=== PATIENT | male | born 1950 | race African-American/Black ===

== ENCOUNTER 2016-07-08 10:47 | Emergency (ER) | payer OTHER ==
--- NOTE | 2016-07-08 11:46 | ED ---
General Adult HPI - General Chief complaint: Abdominal Pain Stated complaint: BACK PAIN AND CONSTIPATION Time Seen by Provider: 07/08/16 11:10 Source: patient Mode of arrival: ambulatory Limitations: no limitations - History of Present Illness Initial comments: Patient is a 65-year-old male presenting with constipation. Patient states he normally has a bowel movement every day but hasn't had a bowel movement last 2 days. Patient states had this before about a year ago for which he came in the ER and was relieved. Patient has not tried any fiber, stool softener, laxative , enema. Patient states he was at a friend's house as to why he didn't try anything. He did try to increase his water intake. Patient denies history of opiate use. He denies fever, chills, chest pain, shortness breath, abdominal pain, nausea, vomiting, recent diarrhea. Patient denies any recent trauma, numbness, incontinence of bowel or bladder. Per chart patient has a past drug use of cocaine and opiates. - Related Data Home Medications Medication Instructions Recorded Confirmed Aspirin EC [Ecotrin Low Dose] 81 mg PO DAILY 07/08/16 07/08/16 Ergocalciferol [Vitamin D2] 50,000 unit PO TU 07/08/16 07/08/16 Insulin Glulisine [Apidra Solostar] See Protocol SQ TID-W/MEALS 07/08/16 Ranitidine HCl [Zantac] 150 mg PO HS 07/08/16 07/08/16 Previous Rx's Medication Instructions Recorded Albuterol Inhaler [Ventolin Hfa 2 puff INHALATION RT-Q6H PRN #1 05/25/16 Inhaler] puff Gabapentin 800 mg PO TID #90 tab 05/25/16 Insulin Glargine [Lantus] 15 unit SQ HS #1 vial 05/25/16 Lisinopril [Zestril] 10 mg PO DAILY #30 tab 05/25/16 Simvastatin [Zocor] 20 mg PO HS #30 tab 05/25/16 Tamsulosin [Flomax] 0.4 mg PO DAILY #30 cap 05/25/16 amLODIPine [Norvasc] 5 mg PO DAILY #30 tab 05/25/16 hydrALAZINE HCL [Apresoline] 25 mg PO TID #90 tab 05/25/16 Allergies Allergy/AdvReac Type Severity Reaction Status Date / Time No Known Allergies Allergy Verified 07/08/16 12:46 Review of Systems ROS Statement: Those systems with pertinent positive or pertinent negative responses have been documented in the HPI. Constitutional: No fever and no chills. HENT: No congestion, no rhinorrhea and no sore throat. Eyes: No discharge and no redness. Respiratory: No cough and no shortness of breath. Cardiovascular: No chest pain and no palpitations. Gastrointestinal: + Constipation. No nausea, no vomiting, no abdominal pain and no diarrhea. Genitourinary: No dysuria and no hematuria. Musculoskeletal: +low back pain and no arthralgias. Skin: No pallor and no rash. Neurological: No dizziness and No headaches. ROS Other: All systems not noted in ROS Statement are negative. Past Medical History Past Medical History: Chest Pain / Angina, COPD, Diabetes Mellitus, Deep Vein Thrombosis (DVT), Eye Disorder, GERD/Reflux, Hyperlipidemia, Hypertension, Liver Disease, Pneumonia, Prostate Disorder, Renal Disease Additional Past Medical History / Comment(s): 08/19/15 Pt presented to [facility] ER via EMS unresponsive. Per EMS, pt took insulin multiple times today. Pt is intubated. No family present at this time and no current contact number left. Pt had urine drug screen which was + for cocaine. He is admitted with clinical impression of AMS. 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 History of Any Multi-Drug Resistant Organisms: MRSA Date of last positivie culture/infection: 2006 MDRO Source:: LT FINGER Past Surgical History: Hernia Repair, Orthopedic Surgery Additional Past Surgical History / Comment(s): 07/27/14 R BKA, liver bx in [place], RT ORBIT reconstruction, fracture of left hip 03/20/2014 with surgery, LT ARM ORIF, SAM KNEES scoped, LT FINGER, colonoscopy, EGD, L hand sx, R inguinal hernia surgery x2, circumcism. Past Anesthesia/Blood Transfusion Reactions: No Reported Reaction Past Psychological History: Anxiety Additional Psychological History / Comment(s): Old medical records indicate that pt lives alone. He uses a cane. Smoking Status: Current every day smoker Past Alcohol Use History: Occasional Additional Past Alcohol Use History / Comment(s): Old record indicates pt started smoking in 1968 Past Drug Use History: Cocaine, Opiates Additional Drug Use History / Comment(s): Past history of substance abuse. Old medical records indicate cocaine abuse and drug screens in past positive for cocaine and opiates. This admission drug screen positive for cocaine. - Past Family History Father Additional Family Medical History / Comment(s): ulcers Mother Family Medical History: Diabetes Mellitus Additional Family Medical History / Comment(s): Mother in her 80's. Sister(s) Family Medical History: Diabetes Mellitus General Exam - General Exam Comments Initial Comments: Constitutional: Patient appears well-developed and well-nourished. No distress. Head: Normocephalic and atraumatic. Eyes: Conjunctivae and EOM are normal. Right eye exhibits no discharge. Left eye exhibits no discharge. No scleral icterus. Neck: Normal range of motion. Neck supple. Cardiovascular: Normal rate and regular rhythm. No murmur heard. Pulmonary/Chest: Effort normal and breath sounds normal. No respiratory distress. No wheezes. Abdominal: Soft. No distension. There is no tenderness. There is no rebound and no guarding. : Rectal exam completed with nurse. Normal rectal tone. Not impacted rectum. Hard stool high in the rectal vault. Musculoskeletal: Normal range of motion. No edema or tenderness. Neurological: Patient alert and oriented to person, place, and time. Skin: Skin is warm and dry. Not diaphoretic. Nursing notes and vitals reviewed. Limitations: no limitations Course Vital Signs 07/08/16 07/08/16 11:05 14:43 Temperature 97.4 F L 97.8 F Pulse Rate 87 79 Respiratory 18 16 Rate Blood Pressure 165/90 208/99 O2 Sat by Pulse 96 100 Oximetry - Reevaluation(s) Reevaluation #1: 07/08/16 15:11 After soapsuds enema patient is doing much better. Patient had a bowel movement. No further back pain. Patient is feeling like he go home with medication to ensure he has a good bowel movement. Patient was noted to have asymptomatic hypertension. Patient did not take his medication but has them here and was encouraged to take them. Discussed the importance of prompt follow-up with primary care doctor. Medical Decision Making - Medical Decision Making Patient is a 65-year-old male with 2 days of constipation and back pain. Back pain resolved with soapsuds enema and bowel movement. Patient was given Dulcolax, lactulose here and mag citrate for home use. Prior to discharge, patient was resting comfortably in bed. Course of stay improved. Denies pain. Discussed physical exam and diagnostic tests with patient. Questions answered and patient is agreeable to discharge with close follow up with Primary Care Physician. Instructed to return to Emergency Department if symptoms worsen. Disposition Clinical Impression: Back pain, Constipation Disposition: HOME SELF-CARE Condition: Good Instructions: Constipation (ED), High Fiber Diet (ED), Back Pain (ED) Referrals: Peyton Orozco MD [Primary Care Provider] - 1-2 days
[2016-07-08] MEDS ORDERED: BISACODYL 10 MG SUPP RECTAL STA (14:39)
[2016-07-08] MEDS ORDERED: LACTULOSE 20 GM/30 ML CUP PO ONE (14:39)
[2016-07-08] MEDS ORDERED: MAGNESIUM CITRATE 296 ML BOTTLE PO ONE (14:40)
[2016-07-08 14:45] VITALS: BP 208/99; PULSE 79; RESP 16; TEMP 97.8
== END 2016-07-08 15:37 | disposition home or self-care (01) ==
LOC: EC 10:47
DX: K59.00 Constipation, unspecified (principal); M54.9 Dorsalgia, unspecified; I12.9 Hypertensive chronic kidney disease with stage 1 through stage 4 chronic kidney disease, or unspecified chronic kidney disease; K21.9 Gastro-esophageal reflux disease without esophagitis; E11.40 Type 2 diabetes mellitus with diabetic neuropathy, unspecified; E11.319 Type 2 diabetes mellitus with unspecified diabetic retinopathy without macular edema; J44.9 Chronic obstructive pulmonary disease, unspecified; E78.5 Hyperlipidemia, unspecified; N40.0 Benign prostatic hyperplasia without lower urinary tract symptoms; F17.200 Nicotine dependence, unspecified, uncomplicated; Z79.82 Long term (current) use of aspirin; Z79.4 Long term (current) use of insulin; Z79.899 Other long term (current) drug therapy; Z89.511 Acquired absence of right leg below knee; Z86.718 Personal history of other venous thrombosis and embolism
CPT/HCPCS: 99283

== ENCOUNTER 2016-07-24 16:56 | Emergency (ER) | payer OTHER ==
[2016-07-24 17:50] VITALS: BP 188/105; PULSE 95; RESP 18; TEMP 98.5
[2016-07-24] MEDS ORDERED: CEPHALEXIN 500MG STARTER PACK 4 CAP BTL PO STA (18:42)
--- NOTE | 2016-07-24 18:43 | ED ---
Extremity Problem HPI - General Chief complaint: Extremity Problem,Nontraumatic Stated complaint: leg pain, poss abscess Time Seen by Provider: 07/24/16 18:16 Source: patient, RN notes reviewed, old records reviewed Mode of arrival: wheelchair Limitations: physical limitation - History of Present Illness Initial comments: Patient is a 65-year-old male with chief complaint of right upper leg area of swelling. Patient is a partial right leg amputee for three years. Patient reports that this is near the area where his prosthetic rubs. He denies any specific pain. He states that he has noticed this area of swelling just today. He states that he has poor sensation to his leg, and he has been using the prostethetic leg for 3 years. Patient states that he is a poorly controlled diabetic. Patient denies fever, chills, decreased range of motion of the leg. - Related Data Home Medications Medication Instructions Recorded Confirmed Aspirin EC [Ecotrin Low Dose] 81 mg PO DAILY 07/08/16 07/08/16 Ergocalciferol [Vitamin D2] 50,000 unit PO TU 07/08/16 07/08/16 Insulin Glulisine [Apidra Solostar] See Protocol SQ TID-W/MEALS 07/08/16 Ranitidine HCl [Zantac] 150 mg PO HS 07/08/16 07/08/16 Previous Rx's Medication Instructions Recorded Albuterol Inhaler [Ventolin Hfa 2 puff INHALATION RT-Q6H PRN #1 05/25/16 Inhaler] puff Gabapentin 800 mg PO TID #90 tab 05/25/16 Insulin Glargine [Lantus] 15 unit SQ HS #1 vial 05/25/16 Lisinopril [Zestril] 10 mg PO DAILY #30 tab 05/25/16 Simvastatin [Zocor] 20 mg PO HS #30 tab 05/25/16 Tamsulosin [Flomax] 0.4 mg PO DAILY #30 cap 05/25/16 amLODIPine [Norvasc] 5 mg PO DAILY #30 tab 05/25/16 hydrALAZINE HCL [Apresoline] 25 mg PO TID #90 tab 05/25/16 Cephalexin [Keflex] 500 mg PO Q8HR #21 cap 07/24/16 Allergies Allergy/AdvReac Type Severity Reaction Status Date / Time No Known Allergies Allergy Verified 07/24/16 17:46 Review of Systems ROS Statement: Those systems with pertinent positive or pertinent negative responses have been documented in the HPI. ROS Other: All systems not noted in ROS Statement are negative. Past Medical History Past Medical History: Chest Pain / Angina, COPD, Diabetes Mellitus, Deep Vein Thrombosis (DVT), Eye Disorder, GERD/Reflux, Hyperlipidemia, Hypertension, Liver Disease, Pneumonia, Prostate Disorder, Renal Disease Additional Past Medical History / Comment(s): 08/19/15 Pt presented to [facility] ER via EMS unresponsive. Per EMS, pt took insulin multiple times today. Pt is intubated. No family present at this time and no current contact number left. Pt had urine drug screen which was + for cocaine. He is admitted with clinical impression of AMS. 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 History of Any Multi-Drug Resistant Organisms: MRSA Date of last positivie culture/infection: 2006 MDRO Source:: LT FINGER Past Surgical History: Hernia Repair, Orthopedic Surgery Additional Past Surgical History / Comment(s): 07/27/14 R BKA, liver bx in [place], RT ORBIT reconstruction, fracture of left hip 03/20/2014 with surgery, LT ARM ORIF, SAM KNEES scoped, LT FINGER, colonoscopy, EGD, L hand sx, R inguinal hernia surgery x2, circumcism. Past Anesthesia/Blood Transfusion Reactions: No Reported Reaction Past Psychological History: Anxiety Additional Psychological History / Comment(s): Old medical records indicate that pt lives alone. He uses a cane. Smoking Status: Current every day smoker Past Alcohol Use History: Occasional Additional Past Alcohol Use History / Comment(s): Old record indicates pt started smoking in 1968 Past Drug Use History: Cocaine, Opiates Additional Drug Use History / Comment(s): Past history of substance abuse. Old medical records indicate cocaine abuse and drug screens in past positive for cocaine and opiates. This admission drug screen positive for cocaine. - Past Family History Father Additional Family Medical History / Comment(s): ulcers Mother Family Medical History: Diabetes Mellitus Additional Family Medical History / Comment(s): Mother in her 80's. Sister(s) Family Medical History: Diabetes Mellitus General Exam - General Exam Comments Initial Comments: Pleasant 65 year old male, no acute distress. Limitations: physical limitation General appearance: alert, in no apparent distress Head exam: Present: atraumatic, normocephalic, normal inspection Eye exam: Present: normal appearance, PERRL, EOMI. Absent: scleral icterus, conjunctival injection, periorbital swelling ENT exam: Present: normal exam, mucous membranes moist Neck exam: Present: normal inspection. Absent: tenderness, meningismus, lymphadenopathy Respiratory exam: Present: normal lung sounds bilaterally. Absent: respiratory distress, wheezes, rales, rhonchi, stridor Cardiovascular Exam: Present: regular rate, normal rhythm, normal heart sounds. Absent: systolic murmur, diastolic murmur, rubs, gallop, clicks GI/Abdominal exam: Present: soft, normal bowel sounds. Absent: distended, tenderness, guarding, rebound, rigid Extremities exam: Present: normal inspection, full ROM, normal capillary refill. Absent: tenderness, pedal edema, joint swelling, calf tenderness Right Hip exam: Present: normal inspection, full ROM Upper Leg exam: Present: swelling (4cm area of swelling and fluctuation of the lateral aspet of the leg, this area is the same location where the prosthetic rubs. No evidence of erythema or warmth. ). Absent: normal inspection, full ROM, abrasion, laceration, ecchymosis, deformity, dislocation, erythema Knee exam: Present: normal inspection, full ROM Back exam: Present: normal inspection Neurological exam: Present: alert, oriented X3, CN II-XII intact Psychiatric exam: Present: normal affect, normal mood Skin exam: Present: warm, dry, intact, normal color. Absent: rash Course Vital Signs 07/24/16 17:46 Temperature 98.5 F Pulse Rate 95 Respiratory 18 Rate Blood Pressure 188/105 O2 Sat by Pulse 99 Oximetry Medical Decision Making - Medical Decision Making Patient is a 65 year old male with chief complaint of right leg area of fluctuation for one day. Patient is a partial right leg amputee for 3 years. Patient has an area of 3cm fluctuation near the lateral aspect of the upper leg where the prosthesis rubs. I discussed that this is likely a fluid filled cyst, rather than an abscess as this is not warm or red and the location of the prosthesis. I did discuss the slight possibility of infection and will cover with keflex. I did advise patient that he needs to follow up with PCP if this continues to bother him, as if I drain it, it could introduce infection to the area or knee joint. I discussed that he needs to increase the padding around the prosthesis, patient understands treatment plan and will comply. Disposition Clinical Impression: Swollen R knee Disposition: HOME SELF-CARE Condition: Good Additional Instructions: Patient advised to follow-up with primary care provider in regards to further evaluation. Patient is to return if the area starts to become larger. Patient advised to have multiple padding over the leg. Keep it up and elevated. Prescriptions: Cephalexin [Keflex] 500 mg PO Q8HR #21 cap Referrals: ePyton Orozco MD [Primary Care Provider] - 1-2 days Time of Disposition: 18:41
== END 2016-07-24 19:04 | disposition home or self-care (01) ==
LOC: EC 16:56
DX: M79.89 Other specified soft tissue disorders (principal); E11.9 Type 2 diabetes mellitus without complications; K21.9 Gastro-esophageal reflux disease without esophagitis; I10 Essential (primary) hypertension; F17.200 Nicotine dependence, unspecified, uncomplicated; Z86.718 Personal history of other venous thrombosis and embolism; Z87.01 Personal history of pneumonia (recurrent); Z79.82 Long term (current) use of aspirin; Z79.4 Long term (current) use of insulin; Z79.899 Other long term (current) drug therapy
CPT/HCPCS: 99283

== ENCOUNTER 2017-03-04 13:56 | Inpatient (IN) | payer OTHER ==
[2017-03-04] MEDS ORDERED: SODIUM CHLORIDE 0.9% 1,000 ML IV STA (14:43)
[2017-03-04] MEDS ORDERED: PIPERACILLIN-TAZOBACTAM 3.375 GM in DEXTROSE/WATER 1 50ML.BAG IVPB STA (14:49)
[2017-03-04] MEDS ORDERED: VANCOMYCIN IV PER PHARMACY 1 EACH MISC MISCELLANE PRN (14:49)
[2017-03-04] MEDS ORDERED: hydrALAZINE HCL 20 MG/ML 1 ML VIAL IVP STA (15:05)
--- NOTE | 2017-03-04 15:09 | ED ---
General Adult HPI - General Chief complaint: Skin/Abscess/Foreign Body Stated complaint: Infection Time Seen by Provider: 03/04/17 14:30 Source: patient, RN notes reviewed Mode of arrival: EMS - History of Present Illness Initial comments: Patient 66-year-old male with past medical history for diabetes, BKA, who presents emergency room today with a chief complaint of a wound to the lateral aspect of the stump of his right lower leg. Patient does admit that it began by his prosthetic rubbing against the skin. Patient does not that he seen his family doctor over a month ago. he is not currently on any antibiotics. States it's become more painful and there's been some drainage coming from the lateral aspect. Patient denies any recent fever, chills, shortness of breath, chest pain, back pain, abdominal pain, nausea or vomiting, numbness or tingling , dysuria or hematuria, constipation or diarrhea, headaches or visual changes, or any other complaints. - Related Data Home Medications Medication Instructions Recorded Confirmed Ergocalciferol [Vitamin D2] 50,000 unit PO TU 07/08/16 03/04/17 Insulin Glulisine [Apidra Solostar] 5 unit SQ AC-TID 03/04/17 03/04/17 Previous Rx's Medication Instructions Recorded Albuterol Inhaler [Ventolin Hfa 2 puff INHALATION RT-Q6H PRN #1 05/25/16 Inhaler] puff Gabapentin 800 mg PO TID #90 tab 05/25/16 Insulin Glargine [Lantus] 15 unit SQ HS #1 vial 05/25/16 Lisinopril [Zestril] 10 mg PO DAILY #30 tab 05/25/16 Simvastatin [Zocor] 20 mg PO HS #30 tab 05/25/16 Tamsulosin [Flomax] 0.4 mg PO DAILY #30 cap 05/25/16 hydrALAZINE HCL [Apresoline] 25 mg PO TID #90 tab 05/25/16 Allergies Allergy/AdvReac Type Severity Reaction Status Date / Time No Known Allergies Allergy Verified 03/04/17 14:44 Review of Systems ROS Statement: Those systems with pertinent positive or pertinent negative responses have been documented in the HPI. ROS Other: All systems not noted in ROS Statement are negative. Past Medical History Past Medical History: Chest Pain / Angina, COPD, Diabetes Mellitus, Deep Vein Thrombosis (DVT), Eye Disorder, GERD/Reflux, Hyperlipidemia, Hypertension, Liver Disease, Pneumonia, Prostate Disorder, Renal Disease Additional Past Medical History / Comment(s): 08/19/15 Pt presented to [facility] ER via EMS unresponsive. Per EMS, pt took insulin multiple times today. Pt is intubated. No family present at this time and no current contact number left. Pt had urine drug screen which was + for cocaine. He is admitted with clinical impression of AMS. 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 History of Any Multi-Drug Resistant Organisms: MRSA Date of last positivie culture/infection: 2006 MDRO Source:: LT FINGER Past Surgical History: Hernia Repair, Orthopedic Surgery Additional Past Surgical History / Comment(s): 07/27/14 R BKA, liver bx in [place], RT ORBIT reconstruction, fracture of left hip 03/20/2014 with surgery, LT ARM ORIF, SAM KNEES scoped, LT FINGER, colonoscopy, EGD, L hand sx, R inguinal hernia surgery x2, circumcism. Past Anesthesia/Blood Transfusion Reactions: No Reported Reaction Past Psychological History: Anxiety Smoking Status: Current every day smoker Past Alcohol Use History: None Reported Past Drug Use History: Cocaine, Opiates - Past Family History Father Additional Family Medical History / Comment(s): ulcers Mother Family Medical History: Diabetes Mellitus Additional Family Medical History / Comment(s): Mother in her 80's. Sister(s) Family Medical History: Diabetes Mellitus General Exam - General Exam Comments Initial Comments: General: The patient is awake and alert, in no distress, and does not appear acutely ill. Eye: Pupils are equal, round and reactive to light, extra-ocular movements are intact. No nystagmus. There is normal conjunctiva bilaterally. No signs of icterus. Ears, nose, mouth and throat: There are moist mucous membranes and no oral lesions. Neck: The neck is supple, there is no tenderness or JVD. Cardiovascular: There is a regular rate and rhythm. No murmur, rub or gallop is appreciated. Respiratory: Lungs are clear to auscultation, respirations are non-labored, breath sounds are equal. No wheezes, stridor, rales, or rhonchi. Musculoskeletal/ skin: BKA on the right. Abscess formation to the lateral aspect of the lower right leg. Measuring approximately 3 cm across there is some purulent drainage coming from the ulcerated area centrally. Normal ROM, no tenderness. Strength 5/5. Sensation intact. Pulses equal bilaterally 2+. Neurological: A&O x 3. CN II-XII intact, There are no obvious motor or sensory deficits. Coordination appears grossly intact. Speech is normal. Psychiatric: Cooperative, appropriate mood & affect, normal judgment. Course Vital Signs 03/04/17 03/04/17 03/04/17 14:29 15:33 16:12 Temperature 97.2 F L Pulse Rate 70 84 79 Respiratory 18 18 18 Rate Blood Pressure 203/115 200/125 155/99 O2 Sat by Pulse 98 98 98 Oximetry Medical Decision Making - Medical Decision Making X-ray reviewed shows no sign of osteomyelitis. Patient does have abscess located to the right lower extremity stump. Patient on antibiotics of Zosyn, vancomycin here in emergency room. Will be admitted to the hospital. - Lab Data Result diagrams: 03/04/17 15:00 03/04/17 15:00 Lab Results 03/04/17 03/04/17 Range/Units 15:00 15:00 WBC 4.5 (3.8-10.6) k/uL RBC 3.91 L (4.30-5.90) m/uL Hgb 11.5 L (13.0-17.5) gm/dL Hct 36.0 L (39.0-53.0) % MCV 92.1 (80.0-100.0) fL MCH 29.3 (25.0-35.0) pg MCHC 31.8 (31.0-37.0) g/dL RDW 12.3 (11.5-15.5) % Plt Count 353 (150-450) k/uL Neutrophils % 56 % Lymphocytes % 34 % Monocytes % 5 % Eosinophils % 1 % Basophils % 0 % Neutrophils # 2.5 (1.3-7.7) k/uL Lymphocytes # 1.5 (1.0-4.8) k/uL Monocytes # 0.2 (0-1.0) k/uL Eosinophils # 0.0 (0-0.7) k/uL Basophils # 0.0 (0-0.2) k/uL Hypochromasia Slight Sodium 136 L (137-145) mmol/L Potassium 4.5 (3.5-5.1) mmol/L Chloride 103 (98-107) mmol/L Carbon Dioxide 26 (22-30) mmol/L Anion Gap 7 mmol/L BUN 25 H (9-20) mg/dL Creatinine 1.53 H (0.66-1.25) mg/dL Est GFR (MDRD) Af Amer 56 (>60 ml/min/1.73 sqM) Est GFR (MDRD) Non-Af 46 (>60 ml/min/1.73 sqM) Glucose 297 H (74-99) mg/dL Calcium 9.2 (8.4-10.2) mg/dL Total Bilirubin 0.1 L (0.2-1.3) mg/dL AST 25 (17-59) U/L ALT 32 (21-72) U/L Alkaline Phosphatase 67 (38-126) U/L Total Protein 6.9 (6.3-8.2) g/dL Albumin 3.1 L (3.5-5.0) g/dL Disposition Clinical Impression: Abscess Disposition: ADMITTED IP TO THIS HOSP Condition: Stable Referrals: Peyton Orozco MD [Primary Care Provider] - 1-2 days Time of Disposition: 16:25
[2017-03-04 15:16] LABS: Basophils % (A) 0 %; CHCM 31.7; Eosinophils % (A) 1 %; HDW 2.89; HGB 11.5 gm/dL (13.0-17.5); Hypochromasia Slight; Luc # (Auto) 0.16; Luc % (Auto) 4; Lymphocytes # (A) 1.5 k/uL (1.0-4.8); Lymphocytes % (A) 34 %; MCH 29.3 pg (25.0-35.0); MCHC 31.8 g/dL (31.0-37.0); MCV 92.1 fL (80.0-100.0); Mean Platelet Volume 7.4; Monocytes # (A) 0.2 k/uL (0-1.0); Monocytes % (A) 5 %; Neutrophils # (A) 2.5 k/uL (1.3-7.7); Neutrophils % (A) 56 %; RBC 3.91 m/uL (4.30-5.90); RDW 12.3 % (11.5-15.5); WBC 4.5 k/uL (3.8-10.6); WBC (Perox) 4.56
[2017-03-04 15:28] LABS: Calcium 9.2 mg/dL (8.4-10.2); Potassium 4.5 mmol/L (3.5-5.1); Total Bilirubin 0.1 mg/dL (0.2-1.3); Total Protein 6.9 g/dL (6.3-8.2)
--- NOTE | 2017-03-04 16:09 | XR ---
EXAMINATION TYPE: XR knee complete RT DATE OF EXAM: 03/04/2017 CLINICAL HISTORY: pain, status post fall TECHNIQUE: Three views of the right knee are obtained. COMPARISON: None. FINDINGS: 3 views of the right knee demonstrate a [id number] amputation. There is soft tissue sunny ma noted. Soft tissue air is identified and underlying infection is not excluded. I do not see eviden ce for acute fracture. Vascular calcifications are noted. IMPRESSION: There is no acute fracture or dislocation. Soft tissue infection is not excluded given s oft tissue air. Correlate clinically.
[2017-03-04] MEDS: hydrALAZINE HCL 20 MG/ML 1 ML VIAL IVP STA ×2 (16:10→16:55)
[2017-03-04] MEDS ORDERED: HYDROcodone/APAP 5-325MG 1 EACH TAB PO PRN (16:32)
[2017-03-04] MEDS ORDERED: NALOXONE 0.4 MG/ML 1 ML VIAL IV PRN (16:32)
[2017-03-04] MEDS ORDERED: ONDANSETRON 4 MG/2 ML VIAL IVP PRN (16:32)
[2017-03-04] MEDS ORDERED: ACETAMINOPHEN TAB 325 MG TAB PO PRN (16:32)
[2017-03-04] MEDS ORDERED: ALBUTEROL NEBULIZED 2.5 MG/3 ML INHALATION PRN (16:33)
[2017-03-04] MEDS ORDERED: ENALAPRILAT 1.25 MG/ML 1 ML VIAL IVP STA (17:41)
[2017-03-04] MEDS: HYDROmorphone 1 MG/ML 1 ML SYRINGE IV PRN ×2 (17:49→20:33)
[2017-03-04] MEDS: INSULIN LISPRO (humaLOG) 300 UNIT/3 ML VIAL SQ SCH ×2 (18:21→21:00)
[2017-03-04 18:27] LABS: Glucose,Whole Blood 328 mg/dL (75-99)
[2017-03-04] MEDS ORDERED: VANCOMYCIN 1,500 MG in SODIUM CHLORIDE 0.9% 250 ML IVPB ONE (19:00)
[2017-03-04] MEDS: ATORVASTATIN 10 MG TAB PO SCH (19:54)
[2017-03-04 20:52] LABS: Glucose,Whole Blood 328 mg/dL (75-99)
[2017-03-04] MEDS: hydrALAZINE HCL 25 MG TAB PO SCH (21:00)
[2017-03-04] MEDS: GABAPENTIN 400 MG CAP PO SCH (21:00)
[2017-03-04 21:33] LABS: Hemoglobin A1C 10.2 % (4.2-6.1)
[2017-03-04] MEDS: PIPERACILLIN-TAZOBACTAM 3.375 GM in DEXTROSE/WATER 1 50ML.BAG IVPB SCH (22:05)
[2017-03-05] MEDS: PIPERACILLIN-TAZOBACTAM 3.375 GM in DEXTROSE/WATER 1 50ML.BAG IVPB SCH ×3 (05:25→20:58)
[2017-03-05] MEDS: HYDROmorphone 1 MG/ML 1 ML SYRINGE IV PRN (05:28)
[2017-03-05 07:28] LABS: Glucose,Whole Blood 216 mg/dL (75-99)
[2017-03-05] MEDS: INSULIN LISPRO (humaLOG) 300 UNIT/3 ML VIAL SQ SCH ×6 (07:43→21:08)
[2017-03-05] MEDS: LISINOPRIL 10 MG TAB PO SCH (07:44)
[2017-03-05] MEDS: GABAPENTIN 400 MG CAP PO SCH ×3 (07:44→23:50)
[2017-03-05] MEDS: hydrALAZINE HCL 25 MG TAB PO SCH ×3 (07:44→23:50)
[2017-03-05 07:59] LABS: Basophils % (A) 0 %; CH 28.9; CHCM 31.3; Eosinophils # (A) 0.1 k/uL (0-0.7); Eosinophils % (A) 2 %; HDW 2.91; HGB 10.6 gm/dL (13.0-17.5); Hypochromasia Slight; Luc # (Auto) 0.11; Luc % (Auto) 2; Lymphocytes # (A) 1.7 k/uL (1.0-4.8); Lymphocytes % (A) 33 %; MCH 29.8 pg (25.0-35.0); MCHC 32.2 g/dL (31.0-37.0); MCV 92.7 fL (80.0-100.0); Mean Platelet Volume 7.7; Monocytes # (A) 0.2 k/uL (0-1.0); Monocytes % (A) 5 %; Neutrophils # (A) 3.1 k/uL (1.3-7.7); Neutrophils % (A) 59 %; RBC 3.56 m/uL (4.30-5.90); RDW 12.5 % (11.5-15.5); WBC 5.3 k/uL (3.8-10.6); WBC (Perox) 5.12
[2017-03-05 08:14] LABS: Calcium 9.1 mg/dL (8.4-10.2); Potassium 4.5 mmol/L (3.5-5.1); Total Bilirubin 0.2 mg/dL (0.2-1.3); Total Protein 6.9 g/dL (6.3-8.2)
[2017-03-05 11:00] VITALS: BMI 20.3
[2017-03-05] MEDS: VANCOMYCIN 1,250 MG in SODIUM CHLORIDE 0.9% 250 ML IVPB SCH (11:21)
--- NOTE | 2017-03-05 11:32 | P.HPIM ---
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 Patient said that this is being ongoing for several weeks. He admits that the prosthetic was rubbing against the skin for a long period of time. For the past few days it became more painful and swollen. He was more red and warm to touch. He presented to the emergency room and was found to have evidence of cellulitis with a small abscess that was drained in the emergency room. X-ray of the right knee showed no evidence of osteomyelitis. Patient has a very poorly controlled diabetes. Despite him reporting that he is taking his insulin as prescribed his A1c is greater than 10. He missed multiple appointments in the office and I haven't seen him since September 2016. Review of Systems Review of system: 14 points review of systems were obtained and were negative except to what were mentioned in the HPI. Past Medical History Past Medical History: Chest Pain / Angina, COPD, Diabetes Mellitus, Deep Vein Thrombosis (DVT), Eye Disorder, GERD/Reflux, Hyperlipidemia, Hypertension, Liver Disease, Pneumonia, Prostate Disorder, Renal Disease Additional Past Medical History / Comment(s): 08/19/15 Pt presented to [facility] ER via EMS unresponsive. Per EMS, pt took insulin multiple times today. Pt is intubated. No family present at this time and no current contact number left. Pt had urine drug screen which was + for cocaine. He is admitted with clinical impression of AMS. 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 History of Any Multi-Drug Resistant Organisms: MRSA Date of last positivie culture/infection: 2006 MDRO Source:: LT FINGER Past Surgical History: Hernia Repair, Orthopedic Surgery Additional Past Surgical History / Comment(s): 07/27/14 R BKA, liver bx in [place], RT ORBIT reconstruction, fracture of left hip 03/20/2014 with surgery, LT ARM ORIF, SAM KNEES scoped, LT FINGER, colonoscopy, EGD, L hand sx, R inguinal hernia surgery x2, circumcism. Past Anesthesia/Blood Transfusion Reactions: No Reported Reaction Past Psychological History: Anxiety Additional Psychological History / Comment(s): Old medical records indicate that pt lives alone. He uses a cane. Smoking Status: Current some day smoker Past Alcohol Use History: None Reported Additional Past Alcohol Use History / Comment(s): Old record indicates pt started smoking in 1968 Past Drug Use History: Cocaine, Opiates Additional Drug Use History / Comment(s): Past history of substance abuse. Old medical records indicate cocaine abuse and drug screens in past positive for cocaine and opiates. - Past Family History Father Additional Family Medical History / Comment(s): ulcers Mother Family Medical History: Diabetes Mellitus Additional Family Medical History / Comment(s): Mother in her 80's. Sister(s) Family Medical History: Diabetes Mellitus Medications and Allergies Home Medications Medication Instructions Recorded Confirmed Type Albuterol Inhaler [Ventolin Hfa 2 puff INHALATION RT-Q6H PRN #1 05/25/16 Rx Inhaler] puff Gabapentin 800 mg PO TID #90 tab 05/25/16 03/04/17 Rx Insulin Glargine [Lantus] 15 unit SQ HS #1 vial 05/25/16 03/04/17 Rx Lisinopril [Zestril] 10 mg PO DAILY #30 tab 05/25/16 03/04/17 Rx Simvastatin [Zocor] 20 mg PO HS #30 tab 05/25/16 03/04/17 Rx Tamsulosin [Flomax] 0.4 mg PO DAILY #30 cap 05/25/16 03/04/17 Rx hydrALAZINE HCL [Apresoline] 25 mg PO TID #90 tab 05/25/16 03/04/17 Rx Ergocalciferol [Vitamin D2] 50,000 unit PO TU 07/08/16 03/04/17 History Insulin Glulisine [Apidra Solostar] 5 unit SQ AC-TID 03/04/17 03/04/17 History Allergies Allergy/AdvReac Type Severity Reaction Status Date / Time No Known Allergies Allergy Verified 03/04/17 14:44 Physical Exam Vitals: Vital Signs Temp Pulse Pulse Resp BP BP Pulse Ox 03/05/17 07:00 97.4 F L 76 16 158/100 99 03/04/17 23:00 98.4 F 83 14 135/105 97 03/04/17 19:23 98.2 F 90 16 147/91 97 03/04/17 19:07 97.8 F 93 18 154/69 98 03/04/17 18:09 93 18 169/81 98 03/04/17 17:41 98.8 F 93 18 187/91 100 03/04/17 16:54 89 18 183/101 98 03/04/17 16:12 79 18 155/99 98 03/04/17 15:33 84 18 200/125 98 03/04/17 14:29 97.2 F L 70 18 203/115 98 Intake and Output 03/04/17 03/05/17 03/05/17 22:59 06:59 14:59 Output Total 450 Balance -450 Output: Urine 450 Other: Voiding Method Urinal Urinal # Voids 0 Weight 68.039 kg Patient Weight 03/06/17 06:59 Weight 68.039 kg General: The patient is awake and alert, in no distress Eye: there is normal conjunctiva bilaterally. Neck: The neck is supple, there is no JVD. Cardiovascular: Normal S1-S2, no S3-S4, no murmurs. Respiratory: Lungs clear to auscultation bilaterally Gastrointestinal: Abdomen is soft, nontender Musculoskeletal: There is no right below knee amputation. On the lateral aspect just above the stump there is area of warmth and erythema. There is a small wound with no obvious drainage at the time of my exam. Neurological:. Speech is normal. Skin: Skin is warm and dry Results CBC & Chem 7: 03/05/17 07:09 03/05/17 07:09 Labs: Abnormal Lab Results - Last 24 Hours (Table) 03/04/17 03/04/17 03/04/17 Range/Units 15:00 15:00 15:00 RBC 3.91 L (4.30-5.90) m/uL Hgb 11.5 L (13.0-17.5) gm/dL Hct 36.0 L (39.0-53.0) % Sodium 136 L (137-145) mmol/L BUN 25 H (9-20) mg/dL Creatinine 1.53 H (0.66-1.25) mg/dL Glucose 297 H (74-99) mg/dL POC Glucose (mg/dL) (75-99) mg/dL Hemoglobin A1c 10.2 H (4.2-6.1) % Total Bilirubin 0.1 L (0.2-1.3) mg/dL Albumin 3.1 L (3.5-5.0) g/dL 03/04/17 03/04/17 03/05/17 Range/Units 18:13 20:46 07:09 RBC 3.56 L (4.30-5.90) m/uL Hgb 10.6 L (13.0-17.5) gm/dL Hct 33.0 L (39.0-53.0) % Sodium (137-145) mmol/L BUN (9-20) mg/dL Creatinine (0.66-1.25) mg/dL Glucose (74-99) mg/dL POC Glucose (mg/dL) 328 H 328 H (75-99) mg/dL Hemoglobin A1c (4.2-6.1) % Total Bilirubin (0.2-1.3) mg/dL Albumin (3.5-5.0) g/dL 03/05/17 03/05/17 Range/Units 07:09 07:26 RBC (4.30-5.90) m/uL Hgb (13.0-17.5) gm/dL Hct (39.0-53.0) % Sodium (137-145) mmol/L BUN 22 H (9-20) mg/dL Creatinine 1.58 H (0.66-1.25) mg/dL Glucose 216 H (74-99) mg/dL POC Glucose (mg/dL) 216 H (75-99) mg/dL Hemoglobin A1c (4.2-6.1) % Total Bilirubin (0.2-1.3) mg/dL Albumin 3.1 L (3.5-5.0) g/dL Microbiology - Last 24 Hours (Table) 03/04/17 15:00 Gram Stain - Preliminary Leg - Right Wound Culture - Preliminary Thrombosis Risk Factor Assmnt - Choose All That Apply Any of the Below Risk Factors Present?: Yes Each Factor Represents 1 point: Abnormal pulmonary function (COPD), Swollen legs (current) Other Risk Factors: Yes Each Risk Factor Represents 2 Points: Age 61-74 years Other congenital or acquired thrombophilia - If yes, enter type in comment: No Thrombosis Risk Factor Assessment Total Risk Factor Score: 4 Thrombosis Risk Factor Assessment Level: Moderate Risk Assessment and Plan Plan: 1. Cellulitis of the right knee stump with a small abscess that was drained in the emergency room. Awaiting wound culture. Currently on broad-spectrum antibiotic. I would consult infectious disease for further evaluation. X-ray showed no evidence of osteomyelitis. 2. Uncontrolled type 2 diabetes mellitus: A1c greater than 10. Counseled extensively about medication compliance. I would resume his home dose of insulin and monitor his glucose closely. 3. Essential hypertension: Blood pressure within acceptable range 4. Cocaine abuse, counseled extensively 5. Stage III chronic kidney disease Today, I reviewed his medication list and lab work results. Continue current regimen. Repeat lab work in the morning. We will continue to follow up on the patient closely.
[2017-03-05 12:25] LABS: Glucose,Whole Blood 300 mg/dL (75-99)
[2017-03-05 17:19] LABS: Glucose,Whole Blood 241 mg/dL (75-99)
[2017-03-05] MEDS ORDERED: INSULIN GLARGINE 100 UNIT/ML 10 ML VIAL SQ SCH (21:00)
[2017-03-05] MEDS: ATORVASTATIN 10 MG TAB PO SCH (21:10)
[2017-03-05 21:16] LABS: Glucose,Whole Blood 280 mg/dL (75-99)
[2017-03-06] MEDS: HYDROmorphone 1 MG/ML 1 ML SYRINGE IV PRN ×2 (00:17→14:21)
[2017-03-06] MEDS: VANCOMYCIN 1,250 MG in SODIUM CHLORIDE 0.9% 250 ML IVPB SCH ×2 (04:45→20:52)
[2017-03-06] MEDS: PIPERACILLIN-TAZOBACTAM 3.375 GM in DEXTROSE/WATER 1 50ML.BAG IVPB SCH ×2 (06:52→14:09)
--- NOTE | 2017-03-06 07:19 | CONS ---
CONSULTATION DATE OF SERVICE: 03/05/2017 REASON FOR CONSULTATION: Right BK stump infection. HISTORY OF PRESENT ILLNESS: The patient is a 66-year-old, male with a past medical history significant for a right [id number] amputation secondary to a staph infection. The patient did have underlying PAD. The patient has been using his prosthesis, which apparently has been rubbing against the lateral aspect of his stump that has led to an area of skin irritation and subsequent swelling and redness and pain. Pain described as throbbing 6 to 7 out of 10 and no radiation with worsening pain and swelling. He presented to the [facility] ER where the patient evaluated by the ER physician. The patient did have bedside drainage of this abscess. Culture has been obtained. X- rays were negative for any bony changes. The patient was started on vancomycin admitted hospital. ID was consulted for further recommendation regarding antibiotic therapy. REVIEW OF SYSTEMS: CONSTITUTIONAL: Positive for weakness and some chills. No fever. EYES: No complaint. ENT: No complaint. RESPIRATORY: No complaint. CARDIOVASCULAR: No complaint. GENITOURINARY: No complaint. GASTROINTESTINAL: No complaint. MUSCULOSKELETAL: As per HPI. INTEGUMENTARY: As per HPI. PSYCHOLOGICAL: No complaint. ENDOCRINE: No complaint. NEUROLOGIC: No complaint. PAST MEDICAL HISTORY: Significant for COPD, diabetes mellitus, deep venous thrombosis, gastroesophageal reflux disease, hypertension, hyperlipidemia, pneumonia. PAST SURGICAL HISTORY: Right BKA, right orbit reconstruction, fracture of the left hip with repair, left arm ORIF, bilateral knee arthroscopy. SOCIAL HISTORY: The patient is currently an every day smoker. Did admit to cocaine use. No drinking. FAMILY HISTORY: Father had history of ulcers. Mother had history of diabetes who in her 80s. ALLERGIES: No known drug allergies. MEDICATIONS: The medications include the patient is currently on Tylenol, [place], Ventolin, Lipitor, Neurontin, hydralazine, Dilaudid, Lantus, Humalog, Zestril, Narcan, Zofran, piperacillin tazobactam, and vancomycin pharmacy to dose. PHYSICAL EXAMINATION: On examination, blood pressure 161/70 with a pulse of 80, temperature 97.9. He is 99% on room air. General description is a middle-aged male lying in bed, in no distress. No tachypnea or accessory muscle of respiration use. HEENT examination shows pallor, no scleral icterus. Oral mucous membrane is dry. NECK: Trachea central. No thyromegaly. LUNGS: Unlabored breathing. Clear to auscultation anteriorly. HEART: S1, S2. Regular rate and rhythm. ABDOMEN: Soft, no tenderness. EXTREMITIES: No edema of the feet. Examination of the right BKA stump: He did have a wound on his lateral aspect. On probing of the wound, the wound is probing down deep with some drainage of purulent material. NEUROLOGICAL: Patient is awake, alert, oriented x3. Mood and affect normal. LABS: Hemoglobin is 10.6, white count 5.3 with a BUN of 22, creatinine 1.58. Wound cultures are currently pending. Blood cultures are pending. DIAGNOSTIC IMPRESSION AND PLAN: Patient with right BKA Stump infection in a patient who did have a right below- knee-amputation stump wound from irritation with previous history of methicillin - resistant Staphylococcus aureus infection would be more likely a methicillin- resistant Staphylococcus aureus infection with an abscess formation. PLAN: 1. I recommend vascular surgery evaluation for possible debridement of this area further that will help in the healing process. 2. Vancomycin pharmacy to dose to continue while waiting for the culture to finalize. 3. Depending upon his clinical response as well as cultures will determine his discharge antibiotic. Thank you for this consultation. Will follow this patient along with you. MMODL / IJN: [id number] / KENNEY
[2017-03-06 07:36] LABS: Glucose,Whole Blood 392 mg/dL (75-99)
[2017-03-06 08:27] LABS: Basophils % (A) 0 %; CH 29.7; CHCM 32.9; Eosinophils # (A) 0.1 k/uL (0-0.7); Eosinophils % (A) 2 %; HCT 32.6 % (39.0-53.0); HDW 2.88; HGB 10.3 gm/dL (13.0-17.5); Luc # (Auto) 0.05; Luc % (Auto) 1; Lymphocytes # (A) 1.1 k/uL (1.0-4.8); Lymphocytes % (A) 28 %; MCH 28.7 pg (25.0-35.0); MCHC 31.7 g/dL (31.0-37.0); MCV 90.8 fL (80.0-100.0); Mean Platelet Volume 8.2; Monocytes # (A) 0.2 k/uL (0-1.0); Monocytes % (A) 6 %; Neutrophils # (A) 2.4 k/uL (1.3-7.7); Neutrophils % (A) 63 %; RBC 3.59 m/uL (4.30-5.90); RDW 13.2 % (11.5-15.5); WBC 3.8 k/uL (3.8-10.6); WBC (Perox) 4.05
[2017-03-06] MEDS ORDERED: LISINOPRIL 20 MG TAB PO STA (08:31)
[2017-03-06] MEDS: INSULIN LISPRO (humaLOG) 300 UNIT/3 ML VIAL SQ SCH ×7 (08:32→21:43)
[2017-03-06] MEDS: GABAPENTIN 400 MG CAP PO SCH ×3 (08:33→20:54)
[2017-03-06] MEDS: hydrALAZINE HCL 25 MG TAB PO SCH ×3 (08:33→20:53)
[2017-03-06 08:41] LABS: Potassium 4.2 mmol/L (3.5-5.1); Total Bilirubin 0.2 mg/dL (0.2-1.3); Total Protein 6.5 g/dL (6.3-8.2)
[2017-03-06] MEDS ORDERED: PANTOPRAZOLE 40 MG/10 ML VIAL IVP SCH (09:00)
[2017-03-06 09:26] LABS: Creatine Kinase MB 1.9 ng/mL (0.0-2.4)
[2017-03-06] MEDS: LISINOPRIL 10 MG TAB PO SCH (10:15)
[2017-03-06] MEDS ORDERED: INSULIN GLARGINE 100 UNIT/ML 10 ML VIAL SQ SCH (10:41)
--- NOTE | 2017-03-06 11:21 | P.PN ---
Subjective Patient was not feeling well this morning. Blood pressure systolic greater than 220. This may be attributed to cocaine withdrawal. Patient was having some chest discomfort. Blood glucose not well controlled Objective - Vital Signs Vital signs: Vital Signs Temp 98.1 F 03/06/17 07:00 Pulse 90 03/06/17 07:00 Resp 20 03/06/17 07:00 BP 190/100 03/06/17 08:30 Pulse Ox 96 03/06/17 07:00 Intake & Output 03/05/17 03/06/17 03/06/17 18:59 06:59 18:59 Output Total 400 950 Balance -400 -950 Weight 68.039 kg Output: Urine 400 950 Other: Voiding Method Urinal - Exam General: The patient is awake and alert, in no distress Eye: there is normal conjunctiva bilaterally. Neck: The neck is supple, there is no JVD. Cardiovascular: Normal S1-S2, no S3-S4, no murmurs. Respiratory: Lungs clear to auscultation bilaterally Gastrointestinal: Abdomen is soft, nontender Musculoskeletal: Right lower extremity below knee amputation stump covered with dry/clean dressing Neurological:. Speech is normal. Skin: Skin is warm and dry - Labs CBC & Chem 7: 03/06/17 08:14 03/06/17 08:02 Labs: Abnormal Lab Results - Last 24 Hours (Table) 03/05/17 03/05/17 03/05/17 Range/Units 12:17 17:06 21:01 RBC (4.30-5.90) m/uL Hgb (13.0-17.5) gm/dL Hct (39.0-53.0) % Sodium (137-145) mmol/L Creatinine (0.66-1.25) mg/dL Glucose (74-99) mg/dL POC Glucose (mg/dL) 300 H 241 H 280 H (75-99) mg/dL Albumin (3.5-5.0) g/dL 03/06/17 03/06/17 03/06/17 Range/Units 07:29 08:02 08:14 RBC 3.59 L (4.30-5.90) m/uL Hgb 10.3 L (13.0-17.5) gm/dL Hct 32.6 L (39.0-53.0) % Sodium 135 L (137-145) mmol/L Creatinine 1.59 H (0.66-1.25) mg/dL Glucose 366 H (74-99) mg/dL POC Glucose (mg/dL) 392 H (75-99) mg/dL Albumin 3.0 L (3.5-5.0) g/dL Microbiology - Last 24 Hours (Table) 03/05/17 11:25 Gram Stain - Preliminary Knee - Right Wound Culture - Preliminary Presumptive MRSA 03/04/17 15:00 Gram Stain - Preliminary Leg - Right Wound Culture - Preliminary Presumptive MRSA 03/04/17 15:00 Blood Culture - Preliminary Blood No Growth after 24 hours Assessment and Plan Plan: 1. Cellulitis of the right knee stump with a small abscess that was drained in the emergency room. Culture growing MRSA. Currently on broad-spectrum antibiotic. Infectious disease following. X-ray showed no evidence of osteomyelitis. vascular surgery consulted for further evaluation. 2. Uncontrolled type 2 diabetes mellitus: A1c greater than 10. Counseled extensively about medication compliance. Insulin regimen adjusted today 3. Essential hypertension: Blood pressure not well controlled. Lisinopril dose increased to 20 mg daily. Add clonidine patch during this hospitalization to help with cocaine withdrawal related hypertension. 4. Cocaine abuse, counseled extensively 5. Stage III chronic kidney disease Today, I reviewed his medication list and lab work results. Continue current regimen. Repeat lab work in the morning. We will continue to follow up on the patient closely.
[2017-03-06] MEDS ORDERED: cloNIDine 0.2 MG/24HR PATCH 1 PATCH PATCH TRANSDERM SCH (11:30)
[2017-03-06 12:13] LABS: Glucose,Whole Blood 227 mg/dL (75-99)
[2017-03-06 15:52] LABS: Glucose,Whole Blood 77 mg/dL (75-99)
[2017-03-06 17:19] LABS: Glucose,Whole Blood 111 mg/dL (75-99)
[2017-03-06] MEDS: ATORVASTATIN 10 MG TAB PO SCH (20:53)
--- NOTE | 2017-03-06 21:19 | PN ---
PROGRESS NOTE DATE OF SERVICE: 03/06/2017 REASON FOR FOLLOWUP: Right BK stump infection. INTERVAL HISTORY: The patient is afebrile. Still complaining of pain in the right BKA stump area. Denies any chest pain, shortness of breath or cough. No abdominal pain or diarrhea. PHYSICAL EXAMINATION: Blood pressure is 176/99 with a pulse of 67, temperature 98.2. He is 99% on room air. General description is a middle-aged male lying in bed, in no distress. Respiratory system unlabored breathing, clear to auscultation anteriorly. Heart S1, S2. Regular rate and rhythm. Abdomen soft no tenderness. Right BKA on the left side. Did have a wound with some drainage. LABS: Hemoglobin is 10.3, white count of 3.8 with a BUN of 20, creatinine 1.59. Wound culture with MRSA. Blood cultures negative. DIAGNOSTIC IMPRESSION AND PLAN: Patient with a right BK wound infection. Culture with presumptive MRSA will be continued. Vancomycin pharmacy to dose, Zosyn has been discontinued. Depending upon his response in the next day or two will determine his discharge antibiotics. Continue supportive care. MMODL / IJN: [id number] /
[2017-03-06 21:26] LABS: Glucose,Whole Blood 375 mg/dL (75-99)
[2017-03-07] MEDS: HYDROmorphone 1 MG/ML 1 ML SYRINGE IV PRN ×4 (00:04→22:12)
[2017-03-07 08:00] LABS: Glucose,Whole Blood 176 mg/dL (75-99)
[2017-03-07] MEDS: INSULIN LISPRO (humaLOG) 300 UNIT/3 ML VIAL SQ SCH ×6 (08:30→22:11)
[2017-03-07] MEDS: hydrALAZINE HCL 25 MG TAB PO SCH (08:32)
[2017-03-07] MEDS: PANTOPRAZOLE 40 MG TABLET PO SCH (08:32)
[2017-03-07] MEDS: LISINOPRIL 10 MG TAB PO SCH (08:32)
[2017-03-07] MEDS: GABAPENTIN 400 MG CAP PO SCH ×3 (08:32→22:11)
[2017-03-07] MEDS ORDERED: VANCOMYCIN TROUGH DUE 1 EACH MISC MISCELLANE ONE (11:00)
[2017-03-07 11:19] LABS: Basophils % (A) 0 %; CHCM 31.6; Eosinophils # (A) 0.1 k/uL (0-0.7); Eosinophils % (A) 1 %; HCT 31.8 % (39.0-53.0); HDW 2.89; HGB 10.2 gm/dL (13.0-17.5); Hypochromasia Slight; Luc # (Auto) 0.24; Luc % (Auto) 4; Lymphocytes # (A) 2.7 k/uL (1.0-4.8); Lymphocytes % (A) 42 %; MCH 29.6 pg (25.0-35.0); MCHC 32.1 g/dL (31.0-37.0); MCV 92.1 fL (80.0-100.0); Mean Platelet Volume 7.4; Monocytes # (A) 0.4 k/uL (0-1.0); Monocytes % (A) 7 %; Neutrophils # (A) 2.9 k/uL (1.3-7.7); Neutrophils % (A) 46 %; RBC 3.46 m/uL (4.30-5.90); RDW 12.7 % (11.5-15.5); WBC 6.4 k/uL (3.8-10.6); WBC (Perox) 6.44
[2017-03-07 11:20] LABS: Calcium 9.1 mg/dL (8.4-10.2); Potassium 4.2 mmol/L (3.5-5.1); Total Bilirubin 0.1 mg/dL (0.2-1.3); Total Protein 6.5 g/dL (6.3-8.2)
[2017-03-07 12:39] LABS: Glucose,Whole Blood 101 mg/dL (75-99)
--- NOTE | 2017-03-07 13:15 | P.PN ---
Subjective Patient is doing well today. No events overnight. Awaiting vascular surgery evaluation. Objective - Vital Signs Vital signs: Vital Signs Temp 97.7 F 03/07/17 07:00 Pulse 76 03/07/17 07:00 Resp 16 03/07/17 07:00 BP 154/104 03/07/17 07:00 Pulse Ox 98 03/07/17 07:00 Intake & Output 03/06/17 03/07/17 03/07/17 18:59 06:59 18:59 Intake Total 300 Output Total 1000 850 Balance -700 -850 Intake: Intake, IV Titration 300 Amount Piperacillin-Tazobactam 3 50 .375 gm In Dextrose/Water 1 50ml.bag @ 12.5 mls/hr IVPB Q8H [facility] Rx#: [id number] Vancomycin 1,250 mg In 250 Sodium Chloride 0.9% 250 ml @ 125 mls/hr IVPB Q16H [facility] Rx#:[id number] Output: Urine 1000 850 Other: # Voids 2 2 - Exam General: The patient is awake and alert, in no distress Eye: there is normal conjunctiva bilaterally. Neck: The neck is supple, there is no JVD. Cardiovascular: Normal S1-S2, no S3-S4, no murmurs. Respiratory: Lungs clear to auscultation bilaterally Gastrointestinal: Abdomen is soft, nontender Musculoskeletal: Right lower extremity below knee amputation stump covered with dry/clean dressing Neurological:. Speech is normal. Skin: Skin is warm and dry - Labs CBC & Chem 7: 03/07/17 10:38 03/07/17 10:38 Labs: Abnormal Lab Results - Last 24 Hours (Table) 03/06/17 03/06/17 03/07/17 Range/Units 17:10 21:16 07:29 RBC (4.30-5.90) m/uL Hgb (13.0-17.5) gm/dL Hct (39.0-53.0) % BUN (9-20) mg/dL Creatinine (0.66-1.25) mg/dL POC Glucose (mg/dL) 111 H 375 H 176 H (75-99) mg/dL Total Bilirubin (0.2-1.3) mg/dL Albumin (3.5-5.0) g/dL 03/07/17 03/07/17 03/07/17 Range/Units 10:38 10:38 12:36 RBC 3.46 L (4.30-5.90) m/uL Hgb 10.2 L (13.0-17.5) gm/dL Hct 31.8 L (39.0-53.0) % BUN 22 H (9-20) mg/dL Creatinine 1.50 H (0.66-1.25) mg/dL POC Glucose (mg/dL) 101 H (75-99) mg/dL Total Bilirubin 0.1 L (0.2-1.3) mg/dL Albumin 3.0 L (3.5-5.0) g/dL Microbiology - Last 24 Hours (Table) 03/04/17 15:00 Gram Stain - Final Leg - Right Wound Culture - Final Methicillin resist S. aureus 03/04/17 15:00 Blood Culture - Preliminary Blood No Growth after 48 hours 03/05/17 11:25 Gram Stain - Preliminary Knee - Right Wound Culture - Preliminary Presumptive MRSA Assessment and Plan Plan: 1. Cellulitis of the right knee stump with a small abscess that was drained in the emergency room. Culture growing MRSA. Currently on broad-spectrum antibiotic. Infectious disease following. X-ray showed no evidence of osteomyelitis. vascular surgery consulted for further evaluation. 2. Uncontrolled type 2 diabetes mellitus: A1c greater than 10. Counseled extensively about medication compliance. Insulin regimen adjusted during this admission. Continue to monitor closely. 3. Essential hypertension: Blood pressure not well controlled. Lisinopril dose increased to 20 mg daily and hydralazine increased to 50 mg 3 times a day.. Added clonidine patch during this hospitalization. May discontinue the patch prior to discharge if blood pressure improving. 4. Cocaine abuse, counseled extensively 5. Stage III chronic kidney disease Today, I reviewed his medication list and lab work results. Continue current regimen. PT/OT and executive secretary social welfare consulted for possible placement at ECF. Repeat lab work in the morning. We will continue to follow up on the patient closely.
[2017-03-07] MEDS: VANCOMYCIN 1,250 MG in SODIUM CHLORIDE 0.9% 250 ML IVPB SCH (13:58)
[2017-03-07] MEDS: hydrALAZINE HCL 50 MG TAB PO SCH ×2 (16:15→22:11)
[2017-03-07 17:34] LABS: Glucose,Whole Blood 182 mg/dL (75-99)
--- NOTE | 2017-03-07 17:38 | PN ---
PROGRESS NOTE DATE OF SERVICE: 03/07/2017 REASON FOR FOLLOWUP: Right BKA stump wound infection. INTERVAL HISTORY: The patient is afebrile. He is feeling better. Overall pain to the right lateral BKA wound is currently improving. Still has slight drainage. Denies any chest pain, shortness of breath or cough. No abdominal pain or any diarrhea. PHYSICAL EXAMINATION: Blood pressure is 164/91 with a pulse of 76, temperature 97.7. He is 98% on room air. GENERAL DESCRIPTION: A middle-aged male lying in bed in no distress. RESPIRATORY SYSTEM: Unlabored breathing. Clear to auscultation anteriorly. HEART: S1, S2. Regular rate and rhythm. ABDOMEN: Soft. No tenderness. RIGHT BKA: Lateral side wound has decreased in intensity and minimal drainage. LABS: Hemoglobin 10, white count 6.4 with a BUN of 22, creatinine 1.50. DIAGNOSTIC IMPRESSION AND PLAN: Patient with a right oawcr-kow-[id number] amputation methicillin-resistant Staphylococcus aureus infection with an abscess with spontaneous drainage. The patient at this time will continue with the vancomycin; however, will be able to finish therapy with p.o. Bactrim DS for another 10 days with careful monitoring of his kidney function. MMODL / IJN: [id number] /
[2017-03-07] MEDS ORDERED: INSULIN GLARGINE 100 UNIT/ML 10 ML VIAL SQ SCH (21:00)
[2017-03-07 21:39] LABS: Glucose,Whole Blood 162 mg/dL (75-99)
[2017-03-07] MEDS: ATORVASTATIN 10 MG TAB PO SCH (22:11)
[2017-03-08] MEDS: VANCOMYCIN 1,250 MG in SODIUM CHLORIDE 0.9% 250 ML IVPB SCH (04:52)
[2017-03-08 07:05] LABS: Glucose,Whole Blood 335 mg/dL (75-99)
[2017-03-08] MEDS: INSULIN LISPRO (humaLOG) 300 UNIT/3 ML VIAL SQ SCH ×6 (08:33→21:05)
[2017-03-08] MEDS: GABAPENTIN 400 MG CAP PO SCH ×3 (08:35→21:05)
[2017-03-08] MEDS: PANTOPRAZOLE 40 MG TABLET PO SCH (08:35)
[2017-03-08] MEDS: hydrALAZINE HCL 50 MG TAB PO SCH ×3 (08:35→21:05)
[2017-03-08] MEDS: LISINOPRIL 10 MG TAB PO SCH (08:36)
[2017-03-08] MEDS: HYDROmorphone 1 MG/ML 1 ML SYRINGE IV PRN (08:39)
[2017-03-08 09:00] LABS: Basophils % (A) 0 %; CH 29.7; CHCM 32.1; Eosinophils # (A) 0.1 k/uL (0-0.7); Eosinophils % (A) 2 %; HCT 32.1 % (39.0-53.0); HDW 2.85; HGB 9.7 gm/dL (13.0-17.5); Luc # (Auto) 0.07; Luc % (Auto) 2; Lymphocytes # (A) 1.5 k/uL (1.0-4.8); Lymphocytes % (A) 39 %; MCH 28.1 pg (25.0-35.0); MCHC 30.1 g/dL (31.0-37.0); MCV 93.1 fL (80.0-100.0); Monocytes # (A) 0.2 k/uL (0-1.0); Monocytes % (A) 6 %; Neutrophils % (A) 51 %; RBC 3.44 m/uL (4.30-5.90); RDW 13.5 % (11.5-15.5); WBC 3.9 k/uL (3.8-10.6); WBC (Perox) 3.82
[2017-03-08 09:31] LABS: ALT 30 U/L (21-72); AST 26 U/L (17-59); Alkaline Phosphatase 50 U/L (38-126); Anion Gap 7 mmol/L; Blood Urea Nitrogen 24 mg/dL (9-20); Calcium 8.7 mg/dL (8.4-10.2); Carbon Dioxide 23 mmol/L (22-30); Chloride 106 mmol/L (98-107); Glucose 278 mg/dL (74-99); Non-African American GFR(MDRD) 43 (>60 ml/min/1.73 sqM); Potassium 4.4 mmol/L (3.5-5.1); Sodium 136 mmol/L (137-145); Total Bilirubin <0.1 mg/dL (0.2-1.3); Total Protein 5.6 g/dL (6.3-8.2)
[2017-03-08] MEDS ORDERED: HYDROcodone/APAP 7.5-325MG 1 EACH TAB PO PRN (12:16)
[2017-03-08 12:30] LABS: Glucose,Whole Blood 86 mg/dL (75-99)
--- NOTE | 2017-03-08 13:08 | P.PN ---
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 Patient said that this is being ongoing for several weeks. He admits that the prosthetic was rubbing against the skin for a long period of time. For the past few days it became more painful and swollen. He was more red and warm to touch. He presented to the emergency room and was found to have evidence of cellulitis with a small abscess that was drained in the emergency room. X-ray of the right knee showed no evidence of osteomyelitis. Patient has a very poorly controlled diabetes. Despite him reporting that he is taking his insulin as prescribed his A1c is greater than 10. He missed multiple appointments in the office and I haven't seen him since September 2016. 03/08/2017 patient still complaining of some pain in the right stump. Awaiting vascular surgery evaluation. otherwise patient has no new complaints. Blood sugars have been in the 300s. Lantus has been adjusted. Objective - Vital Signs Vital signs: Vital Signs Temp 97.1 F L 03/08/17 07:00 Pulse 64 03/08/17 07:00 Resp 18 03/08/17 07:00 BP 162/94 03/08/17 07:00 Pulse Ox 99 03/08/17 07:00 Intake & Output 03/07/17 03/08/17 03/08/17 18:59 06:59 18:59 Output Total 600 1000 Balance -600 -1000 Output: Urine 600 1000 Other: # Voids 2 # Bowel Movements 1 - Exam Head normocephalic Neck supple Lungs clear to auscultation bilaterally no wheezing or crackles Heart regular rate and rhythm S1-S2, no rub or gallop Abdomen is soft nontender nondistended positive bowel sounds no hepatosplenomegaly Extremities no edema. Right below the knee amputation. Patient still has a abscess on the lateral aspect of the stump. With a yellowish drainage. The abscess is firm and hard with palpation. Neuro alert and orientated to 3 - Labs CBC & Chem 7: 03/08/17 08:11 03/08/17 08:11 Labs: Abnormal Lab Results - Last 24 Hours (Table) 03/07/17 03/07/17 03/07/17 Range/Units 12:36 17:10 21:27 RBC (4.30-5.90) m/uL Hgb (13.0-17.5) gm/dL Hct (39.0-53.0) % MCHC (31.0-37.0) g/dL Sodium (137-145) mmol/L BUN (9-20) mg/dL Creatinine (0.66-1.25) mg/dL Glucose (74-99) mg/dL POC Glucose (mg/dL) 101 H 182 H 162 H (75-99) mg/dL Total Bilirubin (0.2-1.3) mg/dL Total Protein (6.3-8.2) g/dL Albumin (3.5-5.0) g/dL 03/08/17 03/08/17 03/08/17 Range/Units 06:54 08:11 08:11 RBC 3.44 L (4.30-5.90) m/uL Hgb 9.7 L (13.0-17.5) gm/dL Hct 32.1 L (39.0-53.0) % MCHC 30.1 L (31.0-37.0) g/dL Sodium 136 L (137-145) mmol/L BUN 24 H (9-20) mg/dL Creatinine 1.61 H (0.66-1.25) mg/dL Glucose 278 H (74-99) mg/dL POC Glucose (mg/dL) 335 H (75-99) mg/dL Total Bilirubin <0.1 L (0.2-1.3) mg/dL Total Protein 5.6 L (6.3-8.2) g/dL Albumin 2.5 L (3.5-5.0) g/dL Microbiology - Last 24 Hours (Table) 03/04/17 15:00 Blood Culture - Preliminary Blood No Growth after 72 hours 03/05/17 11:25 Gram Stain - Final Knee - Right Wound Culture - Final Methicillin resist S. aureus Assessment and Plan Plan: 1. Cellulitis of the right knee stump with a small abscess that was drained in the emergency room. Culture growing MRSA. X-ray showed no evidence of osteomyelitis. patient currently on IV vancomycin. Infectious disease is following. Vascular surgery will be in to evaluate patient today. 2. Uncontrolled type 2 diabetes mellitus: A1c greater than 10. Counseled extensively about medication compliance. Insulin regimen adjusted during this admission. Continue to monitor closely.blood sugar still running in the 300s. We'll increase the Lantus to 27 units at bedtime 3. Essential hypertension: Blood pressure not well controlled. Lisinopril dose increased to 20 mg daily and hydralazine increased to 50 mg 3 times a day.. Added clonidine patch during this hospitalization. May discontinue the patch prior to discharge if blood pressure improving. 4. Cocaine abuse, counseled extensively 5. Stage III chronic kidney disease 6. anemia possibly related to chronic kidney disease. Check iron studies. Repeat CBC in a.m. 7. History of hepatitis C I performed an examination of the patient and discussed their management with the physician Sheriff Detective. I have reviewed the Physician Sheriff Detective's notes and agree with the documented findings and plan of care
[2017-03-08] MEDS ORDERED: LIDOCAINE 1% INJ 10MG/ML (20 ML MDV) SQ ONE (14:01)
[2017-03-08] MEDS ORDERED: HYDROmorphone 2 MG/ML 1 ML SYRINGE IVP STA (14:10)
--- NOTE | 2017-03-08 15:09 | CONS ---
CONSULTATION This is a 66-year-old gentleman who is known to me from the past. I did his right BK amputation in the past. He has been wearing an artificial leg prosthesis. He developed some discomfort and pain on the lateral aspect of the stump, and patient has been admitted with IV antibiotics. I was consulted for I&D of the abscess. PHYSICAL EXAMINATION: On examination, patient's neck is supple. Chest is clear on auscultation. Abdomen is soft. Femoral pulses are present. The patient has a right below-knee amputation. There is some fluctuation noted on the lateral aspect of the stump. PLAN: Incision and drainage and culture of the wound. MMODL / IJN: [id number] /
--- NOTE | 2017-03-08 15:09 | OP ---
OPERATIVE REPORT PREOP DIAGNOSIS: Abscess right foot lateral aspect of the below-knee stump. PROCEDURES: Incision and drainage of the abscess. The patient was seen in his room. Patient had a right BKA amputation in the past. Patient has some fluctuation noted on the lateral aspect of the below-knee stump. Prepped and draped in the usual sterile manner. 1% lidocaine infiltrated. About 2 cm incision was made along the fractures on the lateral aspect of the foot of the stump and deepened through skin, fat, fascia, and after that, we took some cultures and the wound was irrigated with saline. Dressing applied. We will use Aqua silver rope on daily basis. Patient will be followed by Dr. Qiu. MMODL / IJN: [id number] /
[2017-03-08 17:00] LABS: Glucose,Whole Blood 81 mg/dL (75-99)
[2017-03-08 20:56] LABS: Glucose,Whole Blood 197 mg/dL (75-99)
[2017-03-08] MEDS: INSULIN GLARGINE 100 UNIT/ML 10 ML VIAL SQ SCH (21:04)
[2017-03-08] MEDS: HYDROcodone/APAP 10-325MG 1 EACH TAB PO PRN (22:17)
--- NOTE | 2017-03-08 23:33 | PN ---
PROGRESS NOTE DATE OF SERVICE: 03/08/2017 REASON FOR FOLLOWUP: Right BKA stump and wound abscess and cellulitis. INTERVAL HISTORY: The patient is afebrile, has been breathing comfortably. Denies any chest pain or shortness of breath or cough. No abdominal pain. The patient did have bedside I and D of the right BKA lateral site wound. EXAMINATION: On examination blood pressure is 134/83 with a pulse of 64, temperature of 97.2. He is 97% on room air. General description is a middle-aged male, lying in bed, in no distress. Respiratory system: Unlabored breathing, clear to auscultation anteriorly. Heart S1, S2 regular rate and rhythm. ABDOMEN: Soft. No tenderness. Right BKA stump with a small wound is packed. Very minimal drainage. LABS: Hemoglobin 9.3, white count of 3.9, BUN of 24, the creatinine 1.61. DIAGNOSTIC IMPRESSION AND PLAN: Patient with right BKA stump wound with secondary cellulitis. Culture has been positive for MRSA. We will switch antibiotic therapy to daptomycin because of risk and concern for nephrotoxicity from vancomycin. If the patient continues to improve, he will be able to finish therapy with oral doxycycline. This was discussed in detail with the vascular surgeon as well as the admitting team. MMODL / IJN: [id number] /
[2017-03-09] MEDS: LISINOPRIL 10 MG TAB PO SCH (07:30)
[2017-03-09] MEDS: GABAPENTIN 400 MG CAP PO SCH ×3 (07:30→20:51)
[2017-03-09] MEDS: PANTOPRAZOLE 40 MG TABLET PO SCH (07:30)
[2017-03-09] MEDS: hydrALAZINE HCL 50 MG TAB PO SCH ×3 (07:30→20:51)
[2017-03-09 07:41] LABS: Glucose,Whole Blood 258 mg/dL (75-99)
[2017-03-09] MEDS: INSULIN LISPRO (humaLOG) 300 UNIT/3 ML VIAL SQ SCH ×6 (07:44→20:51)
[2017-03-09 08:21] LABS: Basophils % (A) 0 %; CH 29.9; CHCM 32.3; Eosinophils # (A) 0.1 k/uL (0-0.7); Eosinophils % (A) 2 %; HCT 33.8 % (39.0-53.0); HDW 2.82; HGB 10.4 gm/dL (13.0-17.5); Luc # (Auto) 0.07; Luc % (Auto) 2; Lymphocytes # (A) 1.5 k/uL (1.0-4.8); Lymphocytes % (A) 36 %; MCH 28.8 pg (25.0-35.0); MCHC 30.9 g/dL (31.0-37.0); Mean Platelet Volume 8.2; Monocytes # (A) 0.2 k/uL (0-1.0); Monocytes % (A) 5 %; Neutrophils # (A) 2.4 k/uL (1.3-7.7); Neutrophils % (A) 56 %; RBC 3.63 m/uL (4.30-5.90); RDW 13.5 % (11.5-15.5); WBC 4.3 k/uL (3.8-10.6); WBC (Perox) 4.52
[2017-03-09 08:27] LABS: ALT 37 U/L (21-72); AST 33 U/L (17-59); Alkaline Phosphatase 57 U/L (38-126); Anion Gap 9 mmol/L; Blood Urea Nitrogen 24 mg/dL (9-20); Calcium 9.1 mg/dL (8.4-10.2); Carbon Dioxide 23 mmol/L (22-30); Chloride 106 mmol/L (98-107); Glucose 228 mg/dL (74-99); Non-African American GFR(MDRD) 43 (>60 ml/min/1.73 sqM); Potassium 4.5 mmol/L (3.5-5.1); Sodium 138 mmol/L (137-145); Total Bilirubin <0.1 mg/dL (0.2-1.3); Total Protein 6.5 g/dL (6.3-8.2)
[2017-03-09 11:59] LABS: Glucose,Whole Blood 78 mg/dL (75-99)
[2017-03-09] MEDS: HYDROcodone/APAP 10-325MG 1 EACH TAB PO PRN ×2 (14:13→20:52)
--- NOTE | 2017-03-09 15:32 | P.PN ---
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 Patient said that this is being ongoing for several weeks. He admits that the prosthetic was rubbing against the skin for a long period of time. For the past few days it became more painful and swollen. He was more red and warm to touch. He presented to the emergency room and was found to have evidence of cellulitis with a small abscess that was drained in the emergency room. X-ray of the right knee showed no evidence of osteomyelitis. Patient has a very poorly controlled diabetes. Despite him reporting that he is taking his insulin as prescribed his A1c is greater than 10. He missed multiple appointments in the office and I haven't seen him since September 2016. 03/08/2017 patient still complaining of some pain in the right stump. Awaiting vascular surgery evaluation. otherwise patient has no new complaints. Blood sugars have been in the 300s. Lantus has been adjusted. On 03/09/2017 patient was seen and examined, he is alert and oriented 3, he is complaining of discomfort in the right stump area, denies any complaint at this time. Objective - Vital Signs Vital signs: Vital Signs Temp 97.9 F 03/09/17 14:06 Pulse 71 03/09/17 14:06 Resp 18 03/09/17 14:06 BP 155/84 03/09/17 14:06 Pulse Ox 99 03/09/17 14:06 Intake & Output 03/08/17 03/09/17 03/09/17 18:59 06:59 18:59 Intake Total 1100 400 Output Total 700 900 Balance 400 -500 Intake: Oral 1100 400 Output: Urine 700 900 Other: Voiding Method Urinal # Voids 4 1 # Bowel Movements 1 1 - Exam HEENT head normocephalic and atraumatic Neck is supple no JVD no goiter no lymphadenopathy Chest exam is clear to auscultation no crackles no wheezing Cardiac exam reveals regular heart sounds no gallops no murmurs Abdomen is soft nontender no organomegaly Extremity exam reveals minimal edema there is induration in the right stump area - Labs CBC & Chem 7: 03/09/17 08:03 03/09/17 08:03 Labs: Abnormal Lab Results - Last 24 Hours (Table) 03/08/17 03/09/17 03/09/17 Range/Units 20:48 07:05 08:03 RBC 3.63 L (4.30-5.90) m/uL Hgb 10.4 L (13.0-17.5) gm/dL Hct 33.8 L (39.0-53.0) % MCHC 30.9 L (31.0-37.0) g/dL BUN (9-20) mg/dL Creatinine (0.66-1.25) mg/dL Glucose (74-99) mg/dL POC Glucose (mg/dL) 197 H 258 H (75-99) mg/dL Total Bilirubin (0.2-1.3) mg/dL Albumin (3.5-5.0) g/dL 03/09/17 Range/Units 08:03 RBC (4.30-5.90) m/uL Hgb (13.0-17.5) gm/dL Hct (39.0-53.0) % MCHC (31.0-37.0) g/dL BUN 24 H (9-20) mg/dL Creatinine 1.64 H (0.66-1.25) mg/dL Glucose 228 H (74-99) mg/dL POC Glucose (mg/dL) (75-99) mg/dL Total Bilirubin <0.1 L (0.2-1.3) mg/dL Albumin 3.0 L (3.5-5.0) g/dL Microbiology - Last 24 Hours (Table) 03/08/17 14:47 Gram Stain - Preliminary Leg - Right Wound Culture - Preliminary 03/08/17 14:47 Anaerobic Culture - Preliminary Leg - Right 03/04/17 15:00 Blood Culture - Preliminary Blood No Growth after 96 hours Assessment and Plan Plan: 1. Cellulitis of the right knee stump with a small abscess that was drained in the emergency room. Culture growing MRSA. X-ray showed no evidence of osteomyelitis. Infectious disease is following. Patient was switched to IV daptomycin Vascular surgery will be in to evaluate patient today. 2. Uncontrolled type 2 diabetes mellitus: A1c greater than 10. Counseled extensively about medication compliance. Insulin regimen adjusted during this admission. Continue to monitor closely.blood sugar still running in the 300s. We'll increase the Lantus to 27 units at bedtime 3. Essential hypertension: Blood pressure not well controlled. Lisinopril dose increased to 20 mg daily and hydralazine increased to 50 mg 3 times a day.. Added clonidine patch during this hospitalization. May discontinue the patch prior to discharge if blood pressure improving. 4. Cocaine abuse, counseled extensively 5. Stage III chronic kidney disease 6. anemia possibly related to chronic kidney disease. Check iron studies. Repeat CBC in a.m. 7. History of hepatitis C
[2017-03-09 17:30] LABS: Glucose,Whole Blood 262 mg/dL (75-99)
[2017-03-09 20:50] LABS: Glucose,Whole Blood 108 mg/dL (75-99)
[2017-03-09] MEDS: INSULIN GLARGINE 100 UNIT/ML 10 ML VIAL SQ SCH (20:51)
[2017-03-10] MEDS: HYDROcodone/APAP 10-325MG 1 EACH TAB PO PRN ×3 (06:24→20:26)
[2017-03-10] MEDS: hydrALAZINE HCL 50 MG TAB PO SCH ×3 (07:12→21:30)
[2017-03-10] MEDS: LISINOPRIL 10 MG TAB PO SCH (07:12)
[2017-03-10] MEDS: GABAPENTIN 400 MG CAP PO SCH ×3 (07:12→21:30)
[2017-03-10] MEDS: PANTOPRAZOLE 40 MG TABLET PO SCH (07:12)
[2017-03-10 07:16] LABS: Glucose,Whole Blood 170 mg/dL (75-99)
[2017-03-10] MEDS: INSULIN LISPRO (humaLOG) 300 UNIT/3 ML VIAL SQ SCH ×6 (07:35→21:25)
[2017-03-10 08:52] LABS: ALT 32 U/L (21-72); AST 33 U/L (17-59); Alkaline Phosphatase 50 U/L (38-126); Anion Gap 8 mmol/L; Blood Urea Nitrogen 29 mg/dL (9-20); Calcium 9.1 mg/dL (8.4-10.2); Carbon Dioxide 22 mmol/L (22-30); Chloride 108 mmol/L (98-107); Glucose 148 mg/dL (74-99); Non-African American GFR(MDRD) 39 (>60 ml/min/1.73 sqM); Potassium 4.3 mmol/L (3.5-5.1); Sodium 138 mmol/L (137-145); Total Bilirubin <0.1 mg/dL (0.2-1.3); Total Protein 6.1 g/dL (6.3-8.2)
[2017-03-10 09:20] LABS: Basophils % (A) 0 %; CH 29.8; CHCM 32.7; Eosinophils # (A) 0.1 k/uL (0-0.7); Eosinophils % (A) 2 %; HCT 30.7 % (39.0-53.0); HDW 2.77; HGB 9.8 gm/dL (13.0-17.5); Luc # (Auto) 0.08; Luc % (Auto) 2; Lymphocytes # (A) 1.7 k/uL (1.0-4.8); Lymphocytes % (A) 39 %; MCH 29.4 pg (25.0-35.0); MCHC 32.1 g/dL (31.0-37.0); MCV 91.6 fL (80.0-100.0); Mean Platelet Volume 8.6; Monocytes # (A) 0.2 k/uL (0-1.0); Monocytes % (A) 5 %; Neutrophils # (A) 2.2 k/uL (1.3-7.7); Neutrophils % (A) 52 %; RBC 3.35 m/uL (4.30-5.90); RDW 13.9 % (11.5-15.5); WBC 4.3 k/uL (3.8-10.6)
[2017-03-10 12:12] LABS: Glucose,Whole Blood 127 mg/dL (75-99)
[2017-03-10] MEDS ORDERED: cloNIDine 0.3 MG/24HR PATCH 1 PATCH PATCH TRANSDERM SCH (15:30)
--- NOTE | 2017-03-10 15:38 | P.PN ---
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 Patient said that this is being ongoing for several weeks. He admits that the prosthetic was rubbing against the skin for a long period of time. For the past few days it became more painful and swollen. He was more red and warm to touch. He presented to the emergency room and was found to have evidence of cellulitis with a small abscess that was drained in the emergency room. X-ray of the right knee showed no evidence of osteomyelitis. Patient has a very poorly controlled diabetes. Despite him reporting that he is taking his insulin as prescribed his A1c is greater than 10. He missed multiple appointments in the office and I haven't seen him since September 2016. 03/08/2017 patient still complaining of some pain in the right stump. Awaiting vascular surgery evaluation. otherwise patient has no new complaints. Blood sugars have been in the 300s. Lantus has been adjusted. On 03/09/2017 patient was seen and examined, he is alert and oriented 3, he is complaining of discomfort in the right stump area, denies any complaint at this time. On 03/10/2017 patient is alert and oriented 3 he is complaining of pain in his right leg otherwise no complaints denies any chest pain or shortness of breath no fever or chills no nausea or vomiting no abdominal pain no diarrhea or constipation and no urinary symptoms. Blood pressure is stain elevated we will adjust medications, kidney function is worsening will monitor closely. Objective - Vital Signs Vital signs: Vital Signs Temp 96.9 F L 03/10/17 14:11 Pulse 62 03/10/17 14:11 Resp 18 03/10/17 14:11 BP 179/99 03/10/17 14:11 Pulse Ox 98 03/10/17 14:11 Intake & Output 03/09/17 03/10/17 03/10/17 18:59 06:59 18:59 Intake Total 400 725 750 Output Total 900 2600 Balance -500 -1875 750 Intake: Oral 400 725 750 Output: Urine 900 2600 Other: # Voids 0 2 # Bowel Movements 0 - Exam HEENT head normocephalic and atraumatic Neck is supple no JVD no goiter no lymphadenopathy Chest exam is clear to auscultation no crackles no wheezing Cardiac exam reveals regular heart sounds no gallops no murmurs Abdomen is soft nontender no organomegaly Extremity exam reveals minimal edema there is induration in the right stump area - Labs CBC & Chem 7: 03/10/17 08:07 03/10/17 08:07 Labs: Abnormal Lab Results - Last 24 Hours (Table) 03/08/17 03/09/17 03/09/17 Range/Units 08:11 17:26 20:35 RBC (4.30-5.90) m/uL Hgb (13.0-17.5) gm/dL Hct (39.0-53.0) % Chloride (98-107) mmol/L BUN (9-20) mg/dL Creatinine (0.66-1.25) mg/dL Glucose (74-99) mg/dL POC Glucose (mg/dL) 262 H 108 H (75-99) mg/dL Iron 59 L (65-175) ug/dL Total Bilirubin (0.2-1.3) mg/dL Total Protein (6.3-8.2) g/dL Albumin (3.5-5.0) g/dL 03/10/17 03/10/17 03/10/17 Range/Units 07:03 08:07 08:07 RBC 3.35 L (4.30-5.90) m/uL Hgb 9.8 L (13.0-17.5) gm/dL Hct 30.7 L (39.0-53.0) % Chloride 108 H (98-107) mmol/L BUN 29 H (9-20) mg/dL Creatinine 1.78 H (0.66-1.25) mg/dL Glucose 148 H (74-99) mg/dL POC Glucose (mg/dL) 170 H (75-99) mg/dL Iron (65-175) ug/dL Total Bilirubin <0.1 L (0.2-1.3) mg/dL Total Protein 6.1 L (6.3-8.2) g/dL Albumin 2.8 L (3.5-5.0) g/dL 03/10/17 Range/Units 11:59 RBC (4.30-5.90) m/uL Hgb (13.0-17.5) gm/dL Hct (39.0-53.0) % Chloride (98-107) mmol/L BUN (9-20) mg/dL Creatinine (0.66-1.25) mg/dL Glucose (74-99) mg/dL POC Glucose (mg/dL) 127 H (75-99) mg/dL Iron (65-175) ug/dL Total Bilirubin (0.2-1.3) mg/dL Total Protein (6.3-8.2) g/dL Albumin (3.5-5.0) g/dL Microbiology - Last 24 Hours (Table) 03/08/17 14:47 Gram Stain - Preliminary Leg - Right Wound Culture - Preliminary Presumptive MRSA 03/04/17 15:00 Blood Culture - Preliminary Blood No Growth after 120 hours Assessment and Plan Plan: 1. Cellulitis of the right knee stump with a small abscess that was drained in the emergency room. Culture growing MRSA. X-ray showed no evidence of osteomyelitis. Infectious disease is following. Patient was switched to IV daptomycin Vascular surgery will be in to evaluate patient today. 2. Uncontrolled type 2 diabetes mellitus: A1c greater than 10. Counseled extensively about medication compliance. Insulin regimen adjusted during this admission. Continue to monitor closely.blood sugar still running in the 300s. We'll increase the Lantus to 27 units at bedtime 3. Essential hypertension: Blood pressure not well controlled. Lisinopril dose increased to 10 mg daily and hydralazine increased to 50 mg 3 times a day.. Increase clonidine patch to TTS 3 change every 7 days add Norvasc 5 mg by mouth daily today Will monitor blood pressure closely. 4. Cocaine abuse, counseled extensively 5. Stage III chronic kidney disease 6. anemia possibly related to chronic kidney disease. Check iron studies. Repeat CBC in a.m. 7. History of hepatitis C 8. Acute renal failure creatinine is increasing Will monitor closely and we may have to discontinue BETTY inhibitor
[2017-03-10] MEDS: amLODIPine 5 MG TAB PO SCH (16:39)
[2017-03-10 17:18] LABS: Glucose,Whole Blood 163 mg/dL (75-99)
[2017-03-10] MEDS: INSULIN GLARGINE 100 UNIT/ML 10 ML VIAL SQ SCH (21:24)
[2017-03-10 21:34] LABS: Glucose,Whole Blood 80 mg/dL (75-99)
[2017-03-11] MEDS: HYDROcodone/APAP 10-325MG 1 EACH TAB PO PRN ×3 (03:00→14:45)
--- NOTE | 2017-03-11 07:03 | PN ---
PROGRESS NOTE DATE OF SERVICE: 03/10/2017 REASON FOR FOLLOWUP: Eight BKA wound MRSA infection. INTERVAL HISTORY: The patient is afebrile, has been breathing comfortably. Denies any chest pain or shortness of breath or cough. No abdominal pain or any worsening pain in the right BKA wound area. PHYSICAL EXAMINATION: On examination, blood pressure is 176/91 with a pulse of 62, temperature of 96.9. He is 98% on room air. General description is a middle-aged male, lying in bed, in no distress. RESPIRATORY SYSTEM: Unlabored breathing. Clear to auscultation anteriorly. HEART: S1, S2. Regular rate and rhythm. ABDOMEN: Soft, no tenderness. Right BKA stump wound is currently dressed up, no obvious drainage on the dressing. LABS: Hemoglobin is 9.8, white count 4.3. BUN of 29 with a creatinine 1.78. DIAGNOSTIC IMPRESSION AND PLAN: Patient with right BKA stump with secondary cellulitis, status post drainage of this abscess, currently on daptomycin because of his renal insufficiency and risk of Vanco toxicity. Unfortunately, the organism is resistant to tetracyclines so doxycycline not been option. Will be considering a short course of oral Bactrim and watching his kidney function closely in the outpatient setting. Continue supportive care. MMODL / IJN: [id number] / KENNEY
[2017-03-11 07:25] LABS: Glucose,Whole Blood 99 mg/dL (75-99)
[2017-03-11] MEDS: GABAPENTIN 400 MG CAP PO SCH ×2 (08:00→15:08)
[2017-03-11] MEDS: amLODIPine 5 MG TAB PO SCH (08:01)
[2017-03-11] MEDS: hydrALAZINE HCL 50 MG TAB PO SCH ×2 (08:01→15:08)
[2017-03-11] MEDS: INSULIN LISPRO (humaLOG) 300 UNIT/3 ML VIAL SQ SCH ×5 (08:01→17:45)
[2017-03-11] MEDS: PANTOPRAZOLE 40 MG TABLET PO SCH (08:01)
[2017-03-11] MEDS ORDERED: LISINOPRIL 10 MG TAB PO SCH (09:00)
[2017-03-11 09:28] LABS: Basophils % (A) 0 %; CHCM 31.3; Eosinophils # (A) 0.1 k/uL (0-0.7); Eosinophils % (A) 2 %; HCT 31.3 % (39.0-53.0); HDW 2.75; HGB 9.9 gm/dL (13.0-17.5); Hypochromasia Slight; Luc # (Auto) 0.13; Luc % (Auto) 3; Lymphocytes # (A) 1.6 k/uL (1.0-4.8); Lymphocytes % (A) 34 %; MCH 29.4 pg (25.0-35.0); MCHC 31.5 g/dL (31.0-37.0); MCV 93.2 fL (80.0-100.0); Mean Platelet Volume 7.9; Monocytes # (A) 0.3 k/uL (0-1.0); Monocytes % (A) 6 %; Neutrophils # (A) 2.6 k/uL (1.3-7.7); Neutrophils % (A) 56 %; RBC 3.36 m/uL (4.30-5.90); RDW 13.3 % (11.5-15.5); WBC 4.8 k/uL (3.8-10.6); WBC (Perox) 4.81
[2017-03-11 09:53] LABS: Calcium 8.9 mg/dL (8.4-10.2); Total Bilirubin 0.1 mg/dL (0.2-1.3); Total Protein 6.1 g/dL (6.3-8.2)
[2017-03-11 11:49] LABS: Glucose,Whole Blood 68 mg/dL (75-99)
[2017-03-11 11:49] LABS: Glucose,Whole Blood 99 mg/dL (75-99)
[2017-03-11 15:16] VITALS: BP 144/82; PULSE 63; RESP 20; TEMP 97.9
--- NOTE | 2017-03-11 15:49 | P.DS ---
Providers Date of admission: 03/04/17 17:23 Expected date of discharge: 03/11/17 Attending physician: Peyton Orozco Consults: 03/05/17 09:37 Consult Physician Routine Consulting Provider: Marge Qiu Consult Reason/Comments: cellulitis Do you want consulting provider notified?: Yes 03/05/17 11:28 Consult Physician Routine Consulting Provider: Beny Suazo Consult Reason/Comments: right stump abscess Do you want consulting provider notified?: Yes Primary care physician: [facility] Hospital Course: Discharge diagnosis 1. Cellulitis of the right knee stump with a small abscess that was drained in the emergency room. Culture growing MRSA. X-ray showed no evidence of osteomyelitis. Infectious disease is following. Patient was switched to IV daptomycin Vascular surgery will be in to evaluate patient today. Patient underwent I&D on [address] Suazo. Case discussed with infectious disease they're recommending Bactrim DS 1 tablet twice a day for 7 days. The monitor Kidney function closely and have a BMP checked every 3 days while on Bactrim. Infectious disease will follow-up with patient in 1 week. Can't use doxycycline as it's resistant noted per infectious disease. 2. Uncontrolled type 2 diabetes mellitus: A1c greater than 10. Counseled extensively about medication compliance. Insulin regimen adjusted during this admission. he did have some hypoglycemia today. Insulin has been adjusted. 3. Essential hypertension: Blood pressure not well controlled. Blood pressures have been elevated during this admission. Patient's hydralazine has been increased to 50 mg 3 times a day. Norvasc was added. Continue with the BETTY inhibitor. The Catapres patch discontinued at time of discharge. 4. Cocaine abuse, counseled extensively 5. Stage III chronic kidney disease and creatinine at discharge is 1.49 6. anemia possibly related to chronic kidney disease. Iron studies within normal range. 7. History of hepatitis C 8. 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 Patient said that this is being ongoing for several weeks. He admits that the prosthetic was rubbing against the skin for a long period of time. For the past few days it became more painful and swollen. He was more red and warm to touch. He presented to the emergency room and was found to have evidence of cellulitis with a small abscess that was drained in the emergency room. X-ray of the right knee showed no evidence of osteomyelitis. Patient has a very poorly controlled diabetes. Despite him reporting that he is taking his insulin as prescribed his A1c is greater than 10. He missed multiple appointments in the office and I haven't seen him since September 2016. Patient seen evaluated by infectious disease. Wound culture did grow MRSA. Patient was on IV vancomycin and then switched over day up to daptomycin due to patient's renal status. Creatinine at discharge is 1.49. There was resistance noted for doxycycline therefore infectious disease is recommending Bactrim at time of discharge for 7 days. They've recommended monitor kidney functions closely with checking a BMP every 3 days while on the Bactrim. Patient follow-up with Dr. Qiu the infectious disease doctor in the office in one week. Patient also had an incision and drainage with Dr. Suazo on March 09 for the abscess on his right stump. Patient's symptoms have improved. He has been cleared by consulting physicians for discharge. He is medically stable for discharge. Please refer to chart for any further details. Patient will be discharged to [facility]. Blood sugars have been better controlled at time of discharge. We'll continue with Lantus 25 units at bedtime. And the Apidra 3 times a day before meals. Continue to monitor blood pressures closely. Hydralazine increased during this admission and Norvasc was added. Blood pressure is stable at time of discharge. Please refer to chart for any further details. I performed an examination of the patient and discussed their management with the physician Sales Trainee. I have reviewed the Physician Sales Trainee's notes and agree with the documented findings and plan of care Patient Condition at Discharge: Stable Plan - Discharge Summary New Discharge Prescriptions: New amLODIPine [Norvasc] 5 mg PO DAILY tab hydrALAZINE HCL [Apresoline] 50 mg PO TID tab HYDROcodone/APAP 10-325MG [[place] 10-325] 1 each PO Q6H PRN #40 tab PRN Reason: Pain Sulfamethox-Tmp 800-160Mg [Bactrim DS 800-160 mg] 1 tab PO Q12HR #14 tab Continue Gabapentin 800 mg PO TID #90 tab Lisinopril [Zestril] 10 mg PO DAILY #30 tab Simvastatin [Zocor] 20 mg PO HS #30 tab Tamsulosin [Flomax] 0.4 mg PO DAILY #30 cap Albuterol Inhaler [Ventolin Hfa Inhaler] 2 puff INHALATION RT-Q6H PRN #1 puff PRN Reason: Shortness Of Breath Ergocalciferol [Vitamin D2 (DRISDOL)] 50,000 unit PO TU Insulin Glulisine [Apidra Solostar] 5 unit SQ AC-TID Changed Insulin Glargine [Lantus] 25 unit SQ HS #1 vial Discontinued hydrALAZINE HCL [Apresoline] 25 mg PO TID #90 tab Discharge Medication List Albuterol Inhaler [Ventolin Hfa Inhaler] 2 puff INHALATION RT-Q6H PRN #1 puff [Rx] Gabapentin 800 mg PO TID #90 tab 05/25/16 [Rx] Lisinopril [Zestril] 10 mg PO DAILY #30 tab 05/25/16 [Rx] Simvastatin [Zocor] 20 mg PO HS #30 tab 05/25/16 [Rx] Tamsulosin [Flomax] 0.4 mg PO DAILY #30 cap 05/25/16 [Rx] Ergocalciferol [Vitamin D2 (DRISDOL)] 50,000 unit PO TU 07/08/16 [History] Insulin Glulisine [Apidra Solostar] 5 unit SQ AC-TID 03/04/17 [History] HYDROcodone/APAP 10-325MG [[place] 10-325] 1 each PO Q6H PRN #40 tab 03/11/17 [Rx] Insulin Glargine [Lantus] 25 unit SQ HS #1 vial 03/11/17 [Rx] Sulfamethox-Tmp 800-160Mg [Bactrim DS 800-160 mg] 1 tab PO Q12HR #14 tab [Rx] amLODIPine [Norvasc] 5 mg PO DAILY tab 03/11/17 [Rx] hydrALAZINE HCL [Apresoline] 50 mg PO TID tab 03/11/17 [Rx] Follow up Appointment(s)/Referral(s): Peyton Orozco MD [Primary Care Provider] - 1 Week Marge Qiu MD [STAFF PHYSICIAN] - 1 Week Patient Instructions/Handouts: How to Stop Smoking (DC), Cellulitis (DC), Type 2 Diabetes in Adults (DC) Activity/Diet/Wound Care/Special Instructions: Diet: Cardiac and diabetic Activity as tolerated Patient to be discharged to [facility] Discharge Disposition: TRANSFER TO SNF/F
[2017-03-11 17:35] LABS: Glucose,Whole Blood 176 mg/dL (75-99)
--- NOTE | 2017-03-12 05:33 | PN ---
PROGRESS NOTE DATE OF SERVICE: 03/11/2017. REASON FOR FOLLOWUP: Right BKA wound infection with MRSA. INTERVAL HISTORY: The patient is seen on rounds this afternoon. The patient has been breathing comfortably. Denies any chest pain, shortness of breath, cough. No abdominal pain. No worsening pain in the right lateral BKA area. PHYSICAL EXAMINATION: On examination, blood pressure is 144/82 with a pulse of 63, temperature of 97.9. He is 98% on room air. General description is a middle-aged male lying in bed, in no distress. RESPIRATORY SYSTEM: Unlabored breathing. Clear to auscultation anteriorly. HEART: S1, S2. Regular rate and rhythm. ABDOMEN: Soft, no tenderness. Right lateral border wound, some drainage of the abscess with an Aquacel Silver packing. Surrounding swelling and redness has improved. LABS: Hemoglobin is 9.9, white count 4.8 with a BUN of 28, creatinine 1.49. DIAGNOSTIC IMPRESSION AND PLAN: Patient with methicillin-resistant Staphylococcus aureus of right BKA lateral site wound from drainage of the abscess. Unfortunately no other options available as the organism was resistant to tetracycline. We will recommend a short course of oral Bactrim DS 1 twice a day along with Aquacel Silver packing of the wound. We will also recommend checking a BMP in 2 or 3 days to monitor his kidney function closely. This plan was discussed in detail with the nurse practitioner for the primary team. MMDAMIONL / TONN: [id number] /
== END 2017-03-11 19:04 | DRG 565 ==
LOC: EC 13:56 → 4MS4W 17:23
PROVIDERS: ADMIT Internal Medicine; ATTEND Internal Medicine
DX: T87.43 Infection of amputation stump, right lower extremity (principal); L03.115 Cellulitis of right lower limb; N17.9 Acute kidney failure, unspecified; L02.415 Cutaneous abscess of right lower limb; E11.22 Type 2 diabetes mellitus with diabetic chronic kidney disease; E11.42 Type 2 diabetes mellitus with diabetic polyneuropathy; N18.3 Chronic kidney disease, stage 3 (moderate); E11.649 Type 2 diabetes mellitus with hypoglycemia without coma; E11.65 Type 2 diabetes mellitus with hyperglycemia; E11.319 Type 2 diabetes mellitus with unspecified diabetic retinopathy without macular edema; B95.62 Methicillin resistant Staphylococcus aureus infection as the cause of diseases classified elsewhere; D63.1 Anemia in chronic kidney disease; E78.5 Hyperlipidemia, unspecified; F14.10 Cocaine abuse, uncomplicated; F17.200 Nicotine dependence, unspecified, uncomplicated; F41.9 Anxiety disorder, unspecified; I12.9 Hypertensive chronic kidney disease with stage 1 through stage 4 chronic kidney disease, or unspecified chronic kidney disease; J44.9 Chronic obstructive pulmonary disease, unspecified; K21.9 Gastro-esophageal reflux disease without esophagitis; T36.8X5A Adverse effect of other systemic antibiotics, initial encounter; B19.20 Unspecified viral hepatitis C without hepatic coma; G89.29 Other chronic pain; M19.90 Unspecified osteoarthritis, unspecified site; M54.9 Dorsalgia, unspecified; M10.9 Gout, unspecified; K58.9 Irritable bowel syndrome, unspecified; N40.0 Benign prostatic hyperplasia without lower urinary tract symptoms; Z79.4 Long term (current) use of insulin; Z79.899 Other long term (current) drug therapy; Z91.14 Patient's other noncompliance with medication regimen; Z86.14 Personal history of Methicillin resistant Staphylococcus aureus infection; Y83.5 Amputation of limb(s) as the cause of abnormal reaction of the patient, or of later complication, without mention of misadventure at the time of the procedure
CPT/HCPCS: 36415; 80053; 80202; 82550; 82553; 82728; 83036; 83540; 83550; 85025; 87040; 87070; 87075; 87077; 87186; 87205; 93005; 96361; 96365; 96366; 96375; 96376; 99284

== ENCOUNTER → 2017-04-30 | Outpatient (CLI) | payer OTHER ==
--- NOTE | 2017-04-30 09:55 | MR ---
EXAMINATION TYPE: MR arun wo con DATE OF EXAM: 04/30/2017 COMPARISON: 1999 HISTORY: Cervicalgia, LBP TECHNIQUE: T1 and T2 axial and sagittal images of the lumbar spine are submitted. FINDINGS: There is no abnormal signal seen within the visualized spinal cord or paraspinal soft tissu es. At L1-2 there is no disc herniation or canal stenosis. No foraminal encroachment. At L2-3 there is degenerative disc disease and diffuse circumferential disc bulging. Borderline canal stenosis and mild bilateral foraminal encroachment. At L3-4 there is moderate degenerative disc disease with diffuse disc bulging. Hypertrophic facet art hropathy noted. Mild bilateral foraminal encroachment and borderline canal stenosis. At L4-5 there is stable grade 1 anterolisthesis with severe degenerative disc disease. Hypertrophic c hange of the facets diffuse disc bulging result in moderate to severe canal stenosis and bilateral fo raminal encroachment At L5-S1 there is severe degenerative disc disease. There is a slight retrolisthesis of 2 mm of L5 on S1. There is broad-based central disc bulging with a more small focal disc protrusion component para centrally to the left which appears stable. Stable mild effacement of thecal sac. Mild to moderate b ilateral foraminal encroachment. Findings stable IMPRESSION: 1. Findings appear to be stable from the prior exam with multilevel degenerative disc disease and gra de 1 anterolisthesis of L4 on L5 resulting in moderate to severe canal stenosis and bilateral foramin al encroachment. 2. Disc bulging and hypertrophic changes L2-3 and L3-4 results in borderline canal stenosis and bilat eral foraminal encroachment. EXAMINATION TYPE: MR gracie wo con DATE OF EXAM: 04/30/2017 COMPARISON: None HISTORY: Cervicalgia, LBP TECHNIQUE: T1 sagittal and coronal, T2 sagittal, and gradient echo axial views of the cervical spine are submitted. FINDINGS: The cranial cervical junction is preserved. There is no abnormal signal seen within the sp inal cord or paraspinal soft tissues. At C2-3 there is mild central disc bulging but no canal stenosis or foraminal encroachment. At C3-4 there is degenerative disc disease with complete loss of disc space. Posterior disc bulging o r protrusion and spondylosis with uncovertebral joint projecting resulting in mild to moderate bilate ral foraminal encroachment. There is effacement of thecal sac and moderate central stenosis. Disc bul ging capped by spur encroaches upon the anterior margin the spinal. At C4-5 there is severe degenerative disc disease with 3 mm retrolisthesis C5 relative to C4. This re sults in moderate to severe canal stenosis and bilateral foraminal encroachment. Uncovertebral joint and facet arthropathy noted. There is compression of the thecal sac and spinal cord. At C5-6 there is severe degenerative disc disease with facet arthropathy and uncovertebral joint hype rtrophy. Mild to moderate bilateral foraminal encroachment. Mild central stenosis. Disc bulging cappe d by spur noted. At C6-7 there is severe degenerative disc disease with posterior spondylosis and uncovertebral joint projecting. Moderate bilateral foraminal encroachment and borderline to mild central stenosis. At C7-T1 there is to be a 2 mm anterolisthesis of C7 relative to T1 with hypertrophy ligamentum flav um and posterior spondylosis. Mild to moderate bilateral foraminal encroachment. Suspect mild canal s tenosis due to broad-based disc bulging and hypertrophic changes. IMPRESSION: 1. Severe multilevel degenerative disc disease at multiple levels with complete loss of disc space a nd anterior horn retrolisthesis as discussed above. Disc bulging with hypertrophic facet arthropathy and ligamentum flavum hypertrophy contributing to multilevel canal stenosis with the most marked find ings at C4-C5 resulting in moderate to severe canal stenosis and compression of the thecal sac and sp inal cord. X 2. Multilevel foraminal encroachment.
== END | disposition home or self-care (01) ==
LOC: RADMRIMAIN 08:24
PROVIDERS: ATTEND Psychiatry & Neurology Pain Medicine
DX: M48.02 Spinal stenosis, cervical region (principal); M48.061 Spinal stenosis, lumbar region without neurogenic claudication; M50.20 Other cervical disc displacement, unspecified cervical region; M51.26 Other intervertebral disc displacement, lumbar region; M43.12 Spondylolisthesis, cervical region; M51.36 Other intervertebral disc degeneration, lumbar region; M46.86 Other specified inflammatory spondylopathies, lumbar region; M43.16 Spondylolisthesis, lumbar region
CPT/HCPCS: 72141; 72148

== ENCOUNTER 2017-10-30 10:58 | Emergency (ER) | payer MEDICARE, OTHER ==
[2017-10-30] MEDS ORDERED: PROPARACAINE 0.5% OPHTH DROPS 15 ML BTL RIGHT EYE STA (12:19)
[2017-10-30 12:22] VITALS: TEMP 98.7
--- NOTE | 2017-10-30 12:28 | ED ---
Eye Problem HPI - General Chief complaint: Eye Problems Stated complaint: rt eye problem Time Seen by Provider: 10/30/17 12:19 Source: patient, RN notes reviewed Mode of arrival: ambulatory Limitations: no limitations - History of Present Illness Initial comments: This is a 67-year-old male who presents to the emergency department with chief complaint of right eye pain. Patient states that he had orbit reconstructive surgery in the . He states for the last 3 weeks he has been experiencing right eye pain. He states that when he opens his eyes he has double vision. When he opens the bad eye and closes the good eye the double vision goes away. States his eye is sensitive to light. He states that he has also been experiencing clear to yellow drainage from the eye. He states that the pain increased yesterday. He does have a follow-up appointment with his eye doctor for this Saturday. Denies any injuries or trauma. He states that the pain is sharp in nature. Denies fevers or chills, chest pain or shortness of breath, abdominal pain, nausea or vomiting. He does complain of a constant headache for the past 5 days. - Related Data Home Medications Medication Instructions Recorded Confirmed Ergocalciferol [Vitamin D2 50,000 unit PO TU 07/08/16 10/30/17 (DRISDOL)] Fluticasone Nasal [place] [Flonase 2 spr EA NOSTRIL DAILY 06/30/17 10/30/17 Nasal [place]] Previous Rx's Medication Instructions Recorded Albuterol Inhaler [Ventolin Hfa 2 puff INHALATION RT-Q6H PRN #1 05/25/16 Inhaler] puff Gabapentin 800 mg PO TID #90 tab 05/25/16 Simvastatin [Zocor] 20 mg PO HS #30 tab 05/25/16 Insulin Glargine [Lantus] 15 unit SQ BID #0 07/05/17 Insulin Glulisine [Apidra Solostar] 10 unit SQ AC-TID #0 07/05/17 Lisinopril [Zestril] 10 mg PO DAILY #30 tab 07/05/17 Spironolactone 50 mg PO DAILY #30 tablet 07/05/17 Tamsulosin [Flomax] 0.4 mg PO DAILY #30 cap 07/05/17 amLODIPine [Norvasc] 10 mg PO DAILY #30 tab 07/05/17 hydrALAZINE HCL [Apresoline] 50 mg PO TID #90 tab 07/05/17 Allergies Allergy/AdvReac Type Severity Reaction Status Date / Time No Known Allergies Allergy Verified 10/30/17 12:21 Review of Systems ROS Statement: Those systems with pertinent positive or pertinent negative responses have been documented in the HPI. ROS Other: All systems not noted in ROS Statement are negative. Past Medical History Past Medical History: Chest Pain / Angina, COPD, Diabetes Mellitus, Deep Vein Thrombosis (DVT), Eye Disorder, GERD/Reflux, Hyperlipidemia, Hypertension, Liver Disease, Pneumonia, Prostate Disorder, Renal Disease Additional Past Medical History / Comment(s): Other HX: IDDM-poorly controlled with admissions for DKA and metabolic encephalopathies, severe sepsis with R foot gangrene with metabolic encephalopathy resulting in R BKA 07/2014, chronic renal failure, electolyte abnormalities, DJD, NEUROPATHY bilateral legs and feet , pinch nerves on right neck and left hip, herniated disc causing sciatic pain, chronic back pain, falls, fracture lower left ribs, DVT leg, Hepatits c- was [facility] yrs ago that did not work, concussions, gout , diabetic retinopathy, IBS, BPH, gonorrhea. History of Any Multi-Drug Resistant Organisms: MRSA Date of last positivie culture/infection: 07/02/17 MDRO Source:: toe Past Surgical History: Hernia Repair, Orthopedic Surgery Additional Past Surgical History / Comment(s): 07/27/14 R BKA, liver bx in [place], RT ORBIT reconstruction, fracture of left hip 03/20/2014 with surgery, LT ARM ORIF, SAM KNEES scoped, LT FINGER, colonoscopy, EGD, L hand sx, R inguinal hernia surgery x2, circumcism. Past Anesthesia/Blood Transfusion Reactions: No Reported Reaction Past Psychological History: Anxiety Smoking Status: Current some day smoker Past Alcohol Use History: None Reported Past Drug Use History: None Reported - Past Family History Father Additional Family Medical History / Comment(s): ulcers Mother Family Medical History: Diabetes Mellitus Additional Family Medical History / Comment(s): Mother in her 80's. Sister(s) Family Medical History: Diabetes Mellitus General Exam - General Exam Comments Initial Comments: General: Awake and alert, well-developed; in no apparent distress. Sitting comfortably on ED stretcher with right eye closed. HEENT: Head atraumatic, normocephalic. Pupils are equal, round and reactive to light. Extraocular movements intact. Right conjunctiva is non-injected. On fluorescein staining, no abrasions or ulcers noted. Intraocular pressure is 14. Oropharynx moist without erythema or exudate. Neck: Supple. Normal ROM. Cardiovascular: Regular rate and rhythm. No murmurs, rubs or gallops. Chest symmetrical. Respiratory: Lungs clear to auscultation bilaterally. No wheezes, rales or rhonchi. Normal respiratory effort with no use of accessory muscles. Musculoskeletal: Normal ROM, no tenderness bilateral upper and lower extremities. Skin: [place], warm and dry without rashes or lesions. Neurological: Alert and oriented x3. CN II-XII grossly intact. Speech is fluent and answers are appropriate. No focal neuro deficits. Psychiatric: Normal mood and affect. No overt signs of depression or anxiety noted. Limitations: no limitations Course Vital Signs 10/30/17 10/30/17 12:18 13:41 Temperature 98.7 F Pulse Rate 77 70 Respiratory 18 20 Rate Blood Pressure 189/107 190/111 O2 Sat by Pulse 99 98 Oximetry Medical Decision Making - Medical Decision Making This is a 67-year-old male who presents to the emergency department for evaluation of right eye pain for 3 weeks. Patient complains of a stabbing right eye pain, drainage, double vision and a constant headache. Patient does have a history of hypertension. On presentation, his blood pressure was elevated. He did state that he took his lisinopril 10 mg earlier this morning at 7 AM. He was given 0.1 mg of Catapres in the emergency department. On fluorescein staining and evaluation with Wood's lamp, no abrasions or ulcers are noted. Conjunctiva is noninjected. Intraocular pressure is normal at 14. Patient's visual acuity is decreased at 20/50 in comparison to the left eye which is 20/30. Patient denies any new injuries or trauma. This case was discussed with attending physician, Dr. Zapata. He was in contact with certified tumor registrar, Dr. Loza. Recommended patient be seen right now in Dr. Loza' s office. Patient states he is homeless and does not have transportation. We will be setting up taxi service for transportation. Patient is in no acute distress and is in agreement with plan. He will be discharged at this time. - Radiology Data Radiology results: report reviewed, image reviewed CT brain without contrast impression: Mild age-related atrophy with periventricular white matter ischemic changes. Disposition Clinical Impression: Eye pain Disposition: HOME SELF-CARE Condition: Fair Instructions: Eye Pain (ED) Additional Instructions: As discussed, please go directly to Dr. Loza's office, [facility], at [address] [place]. Please follow up with primary care provider within 1-2 days. Return to emergency department if symptoms should worsen or any concerns arise. Is patient prescribed a controlled substance at d/c from ED?: No Referrals: Peyton Orozco MD [Primary Care Provider] - 1-2 days Markie Loza MD [STAFF PHYSICIAN] - 1-2 days Time of Disposition: 14:10
[2017-10-30] MEDS ORDERED: ACETAMINOPHEN TAB 500 MG TAB PO STA (12:43)
[2017-10-30] MEDS ORDERED: cloNIDine HCL 0.1 MG TAB PO STA ×2 (13:08→14:20)
--- NOTE | 2017-10-30 13:23 | CT ---
EXAMINATION TYPE: CT brain wo con DATE OF EXAM: 10/30/2017 COMPARISON: 05/20/2016 INDICATION: double vision DLP: 945.5 mGycm, Automated exposure control for dose reduction was used. CONTRAST: None CT of the brain is performed utilizing 3 mm thick sections through the posterior fossa and 3 mm thick sections through the remaining calvarium. Study is performed within 24 hours of arrival to the hosp [facility]. No abnormal hyperdensity is present to suggest an acute intracranial hemorrhage. No mass lesion is evident. No acute infarcts are evident. Mild periventricular white matter hypodensity is present, likely on th e basis of chronic white matter ischemic changes. Findings appear similar to comparison. Ventricles and sulci are mildly prom for the patient age. Paranasal sinuses and mastoid air cells within the [id number] are clear. IMPRESSIONS: 1. Mild age-related atrophy with periventricular white matter ischemic changes.
[2017-10-30 14:48] VITALS: BP 150/70; PULSE 65; RESP 20
== END 2017-10-30 14:48 | disposition home or self-care (01) ==
LOC: EC 10:58
DX: H57.11 Ocular pain, right eye (principal); I10 Essential (primary) hypertension; J44.9 Chronic obstructive pulmonary disease, unspecified; F17.200 Nicotine dependence, unspecified, uncomplicated; Z59.0 Homelessness; Z86.14 Personal history of Methicillin resistant Staphylococcus aureus infection; Z79.899 Other long term (current) drug therapy
CPT/HCPCS: 70450; 99284

== ENCOUNTER → 2017-11-02 | Outpatient (CLI) | payer MEDICARE, OTHER ==
[2017-11-02 12:00] LABS: Basophils % (A) 0 %; Eosinophils % (A) 1 %; HCT 38.5 % (39.0-53.0); HGB 12.6 gm/dL (13.0-17.5); Lymphocytes # (A) 1.2 k/uL (1.0-4.8); Lymphocytes % (A) 27 %; MCH 30.1 pg (25.0-35.0); MCHC 32.8 g/dL (31.0-37.0); MCV 91.9 fL (80.0-100.0); Mean Platelet Volume 7.6; Monocytes # (A) 0.2 k/uL (0-1.0); Monocytes % (A) 5 %; Neutrophils # (A) 2.8 k/uL (1.3-7.7); Neutrophils % (A) 66 %; Platelet Count 196 k/uL (150-450); RBC 4.19 m/uL (4.30-5.90); RDW 13.9 % (11.5-15.5); WBC 4.2 k/uL (3.8-10.6)
[2017-11-02 15:36] LABS: Erythrocyte Sedimentation Rate 20 mm/hr (0-15)
== END | disposition home or self-care (01) ==
LOC: LABWHC1 11:12
PROVIDERS: ATTEND Ophthalmology
DX: H49.01 Third [oculomotor] nerve palsy, right eye (principal)
CPT/HCPCS: 36415; 85025; 85652; 86140

== ENCOUNTER → 2017-11-15 | Outpatient (CLI) | payer MEDICARE, OTHER | END | disposition home or self-care (01) | LOC: LABWHC1 09:04 | PROVIDERS: ATTEND Ophthalmology | DX: H49.01 Third [oculomotor] nerve palsy, right eye (principal); L98.8 Other specified disorders of the skin and subcutaneous tissue | CPT/HCPCS: 36415; 82565; 84520 ==

== ENCOUNTER → 2017-12-05 | Outpatient (CLI) | payer MEDICARE, OTHER ==
--- NOTE | 2017-12-05 10:00 | MR ---
MR brain HISTORY: 3rd nerve palsy Multiplanar multisequence imaging through the brain and correlated to CT brain 10/30/2017 There is no restricted diffusion. There is no hemorrhage or hydrocephalus. Periventricular white jhony er shows confluent and scattered hyperintensities on inversion recovery and T2-weighted sequences. Th e orbits show no mass. Mild inflammatory change present in the ethmoid air cells. Cortical atrophy is likely age-related. There are normal vascular flow voids. Some increased signal also noted within th e david, including dorsal midbrain. Disconjugate gaze is suspected based on globe positions. IMPRESSION: Age-related changes of atrophy and probable chronic small vessel ischemia, including dors al midbrain.
== END | disposition home or self-care (01) ==
LOC: RADMRIMAIN 07:51
PROVIDERS: ATTEND Ophthalmology
DX: G31.1 Senile degeneration of brain, not elsewhere classified (principal); H49.00 Third [oculomotor] nerve palsy, unspecified eye
CPT/HCPCS: 70551; 82565; 84520

== ENCOUNTER 2018-01-22 21:23 | Emergency (ER) | payer MEDICARE, OTHER ==
[2018-01-22 22:05] VITALS: PULSE 88
[2018-01-22 22:09] LABS: Glucose,Whole Blood 230 mg/dL (75-99)
--- NOTE | 2018-01-22 22:47 | ED ---
Extremity Problem HPI - General Chief complaint: Extremity Problem,Nontraumatic Stated complaint: diabetic/leg & foot swelling Time Seen by Provider: 01/22/18 22:37 Source: patient, RN notes reviewed Mode of arrival: ambulatory Limitations: no limitations - History of Present Illness Initial comments: Patient 67-year-old male with a past medical history for diabetes, presented to the emergency room today with chief complaint of feeling shaky earlier today. He does admit that he states that longterm. States he is feeling very shaky around 7 PM checked his sugar was 41. Patient states that symptoms are feeling better at this time no longer shaky. He states he has noticed some swelling to left leg had some discomfort to left [place] area. Denies any injury or trauma. Patient denies any other complaints at this time. Patient denies any recent fever, chills, shortness of breath, chest pain, back pain, abdominal pain, nausea or vomiting, numbness or tingling, or any other complaints. - Related Data Home Medications Medication Instructions Recorded Confirmed Ergocalciferol [Vitamin D2 50,000 unit PO TU 07/08/16 10/30/17 (DRISDOL)] Fluticasone Nasal [place] [Flonase 2 spr EA NOSTRIL DAILY 06/30/17 10/30/17 Nasal [place]] Previous Rx's Medication Instructions Recorded Albuterol Inhaler [Ventolin Hfa 2 puff INHALATION RT-Q6H PRN #1 05/25/16 Inhaler] puff Gabapentin 800 mg PO TID #90 tab 05/25/16 Simvastatin [Zocor] 20 mg PO HS #30 tab 05/25/16 Insulin Glargine [Lantus] 15 unit SQ BID #0 07/05/17 Insulin Glulisine [Apidra Solostar] 10 unit SQ AC-TID #0 07/05/17 Lisinopril [Zestril] 10 mg PO DAILY #30 tab 07/05/17 Spironolactone 50 mg PO DAILY #30 tablet 07/05/17 Tamsulosin [Flomax] 0.4 mg PO DAILY #30 cap 07/05/17 amLODIPine [Norvasc] 10 mg PO DAILY #30 tab 07/05/17 hydrALAZINE HCL [Apresoline] 50 mg PO TID #90 tab 07/05/17 Allergies Allergy/AdvReac Type Severity Reaction Status Date / Time No Known Allergies Allergy Verified 10/30/17 12:21 Review of Systems ROS Statement: Those systems with pertinent positive or pertinent negative responses have been documented in the HPI. ROS Other: All systems not noted in ROS Statement are negative. 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 History of Any Multi-Drug Resistant Organisms: MRSA Date of last positivie culture/infection: 07/02/17 MDRO Source:: toe Past Surgical History: Hernia Repair, Orthopedic Surgery Additional Past Surgical History / Comment(s): 07/27/14 R BKA, liver bx in [place], RT ORBIT reconstruction, fracture of left hip 03/20/2014 with surgery, LT ARM ORIF, SAM KNEES scoped, LT FINGER, colonoscopy, EGD, L hand sx, R inguinal hernia surgery x2, circumcism. Past Anesthesia/Blood Transfusion Reactions: No Reported Reaction Past Psychological History: Anxiety Smoking Status: Current some day smoker Past Alcohol Use History: None Reported Past Drug Use History: None Reported - Past Family History Father Additional Family Medical History / Comment(s): ulcers Mother Family Medical History: Diabetes Mellitus Additional Family Medical History / Comment(s): Mother in her 80's. Sister(s) Family Medical History: Diabetes Mellitus General Exam - General Exam Comments Initial Comments: General: The patient is awake and alert, in no distress, and does not appear acutely ill. Eye: Pupils are equal, round and reactive to light, extra-ocular movements are intact. No nystagmus. There is normal conjunctiva bilaterally. No signs of icterus. Ears, nose, mouth and throat: There are moist mucous membranes and no oral lesions. Neck: The neck is supple, there is no tenderness or JVD. Cardiovascular: There is a regular rate and rhythm. No murmur, rub or gallop is appreciated. Respiratory: Lungs are clear to auscultation, respirations are non-labored, breath sounds are equal. No wheezes, stridor, rales, or rhonchi. Musculoskeletal: BKA on the right. Normal ROM, no tenderness. Strength 5/5. Sensation intact. Left pedal pulses 2+. Dry skin to the bottom left foot with a abrasion over the lateral aspect measuring approximately 1 x 0.25 cm no redness no erythema locally. No sign of infection. No deep tissue involvement. Neurological: A&O x 3. CN II-XII intact, There are no obvious motor or sensory deficits. Coordination appears grossly intact. Speech is normal. Skin: Skin is warm and dry and no rashes or lesions are noted. Psychiatric: Cooperative, appropriate mood & affect, normal judgment. Limitations: no limitations Course Vital Signs 01/22/18 21:57 Temperature 98.7 F Pulse Rate 88 Respiratory 16 Rate Blood Pressure 173/78 O2 Sat by Pulse 97 Oximetry Medical Decision Making - Medical Decision Making 67-year-old male presenting for hypoglycemia. He states his blood sugar was 41 earlier today. He states he was able to eat and drink without the longterm. This did improve his blood sugar. His blood sugars been stable here in emergency room. of Patient reexamined at this time shows no signs of distress. His labs been reviewed does show elevated kidney function which is similar to previous labs. Patient's ultrasound showing no evidence of a DVT. There are some inguinal lymph nodes. There is no sign of infection at this time. Patient is advised keep close eye on for any signs of infection return here to the emergency room for any other complaints. Patient states understanding and is in agreement. - Lab Data Result diagrams: 01/22/18 23:34 01/22/18 23:34 Lab Results 01/22/18 01/22/18 01/22/18 Range/Units 22:04 23:34 23:34 WBC 4.2 (3.8-10.6) k/uL RBC 4.36 (4.30-5.90) m/uL Hgb 12.6 L (13.0-17.5) gm/dL Hct 39.3 (39.0-53.0) % MCV 90.2 (80.0-100.0) fL MCH 29.0 (25.0-35.0) pg MCHC 32.2 (31.0-37.0) g/dL RDW 13.7 (11.5-15.5) % Plt Count 225 (150-450) k/uL Neutrophils % 56 % Lymphocytes % 36 % Monocytes % 5 % Eosinophils % 2 % Basophils % 0 % Neutrophils # 2.4 (1.3-7.7) k/uL Lymphocytes # 1.5 (1.0-4.8) k/uL Monocytes # 0.2 (0-1.0) k/uL Eosinophils # 0.1 (0-0.7) k/uL Basophils # 0.0 (0-0.2) k/uL Sodium 139 (137-145) mmol/L Potassium 4.5 (3.5-5.1) mmol/L Chloride 105 (98-107) mmol/L Carbon Dioxide 27 (22-30) mmol/L Anion Gap 7 mmol/L BUN 44 H (9-20) mg/dL Creatinine 2.38 H (0.66-1.25) mg/dL Est GFR (CKD-EPI)AfAm 32 (>60 ml/min/1.73 sqM) Est GFR (CKD-EPI)NonAf 28 (>60 ml/min/1.73 sqM) Glucose 243 H (74-99) mg/dL POC Glucose (mg/dL) 230 H (75-99) mg/dL POC Glu Kick Plate Installer ID Mukesh Jackson Calcium 8.9 (8.4-10.2) mg/dL Total Bilirubin 0.3 (0.2-1.3) mg/dL AST 38 (17-59) U/L ALT 38 (21-72) U/L Alkaline Phosphatase 78 (38-126) U/L Total Protein 6.9 (6.3-8.2) g/dL Albumin 3.5 (3.5-5.0) g/dL Disposition Clinical Impression: Hypoglycemia, Leg pain Disposition: HOME SELF-CARE Condition: Good Instructions: Hypoglycemia in a Person with Diabetes (ED) Additional Instructions: Please watch for any signs of infection as discussed. Please follow-up with family doctor in the next 2 days of symptoms have not improved. Please return to emergency room if the symptoms increase or worsen or for any other concerns. Is patient prescribed a controlled substance at d/c from ED?: No Referrals: None,Stated [REFERRING] - 1-2 days Time of Disposition: 00:26
[2018-01-22 23:44] LABS: Basophils % (A) 0 %; Eosinophils # (A) 0.1 k/uL (0-0.7); Eosinophils % (A) 2 %; HCT 39.3 % (39.0-53.0); HGB 12.6 gm/dL (13.0-17.5); Lymphocytes # (A) 1.5 k/uL (1.0-4.8); Lymphocytes % (A) 36 %; MCHC 32.2 g/dL (31.0-37.0); MCV 90.2 fL (80.0-100.0); Mean Platelet Volume 7.9; Monocytes # (A) 0.2 k/uL (0-1.0); Monocytes % (A) 5 %; Neutrophils # (A) 2.4 k/uL (1.3-7.7); Neutrophils % (A) 56 %; Platelet Count 225 k/uL (150-450); RBC 4.36 m/uL (4.30-5.90); RDW 13.7 % (11.5-15.5); WBC 4.2 k/uL (3.8-10.6)
--- NOTE | 2018-01-22 23:53 | US ---
EXAMINATION TYPE: US venous doppler duplex LE LT DATE OF EXAM: 01/22/2018 10:43 PM COMPARISON: NONE CLINICAL HISTORY: Pain. Left leg pain and swelling. SIDE PERFORMED: Left TECHNIQUE: The lower extremity deep venous system is examined utilizing real time linear array sonog saida with graded compression, doppler sonography and color-flow sonography. VESSELS IMAGED: External Iliac Vein (EIV) Common Femoral Vein Deep Femoral Vein Greater Saphenous Vein * Femoral Vein Popliteal Vein Small Saphenous Vein * Proximal Calf Veins (* superficial vessels) Left Leg: Negative for DVT No evidence of DVT left leg. IMPRESSION: Prominent left inguinal lymph nodes. No evidence of deep venous thrombosis.
[2018-01-22 23:55] LABS: Albumin 3.5 g/dL (3.5-5.0); Calcium 8.9 mg/dL (8.4-10.2); Potassium 4.5 mmol/L (3.5-5.1); Total Bilirubin 0.3 mg/dL (0.2-1.3); Total Protein 6.9 g/dL (6.3-8.2)
[2018-01-23] MEDS ORDERED: cloNIDine HCL 0.2 MG TAB PO STA (01:14)
[2018-01-23 01:25] VITALS: RESP 18; TEMP 98.1
[2018-01-23] MEDS ORDERED: amLODIPine 10 MG TAB PO STA (01:42)
[2018-01-23 02:29] VITALS: BP 173/93
== END 2018-01-23 02:34 | disposition home or self-care (01) ==
LOC: EC 21:23
DX: E11.649 Type 2 diabetes mellitus with hypoglycemia without coma (principal); E11.10 Type 2 diabetes mellitus with ketoacidosis without coma; E11.52 Type 2 diabetes mellitus with diabetic peripheral angiopathy with gangrene; E11.40 Type 2 diabetes mellitus with diabetic neuropathy, unspecified; E11.22 Type 2 diabetes mellitus with diabetic chronic kidney disease; G93.41 Metabolic encephalopathy; I96 Gangrene, not elsewhere classified; N18.9 Chronic kidney disease, unspecified; F17.200 Nicotine dependence, unspecified, uncomplicated; Z79.899 Other long term (current) drug therapy; Z86.14 Personal history of Methicillin resistant Staphylococcus aureus infection; Z86.718 Personal history of other venous thrombosis and embolism
CPT/HCPCS: 36415; 80053; 85025; 99284

== ENCOUNTER 2018-01-25 11:33 | Emergency (ER) | payer MEDICARE, OTHER ==
[2018-01-25 11:51] VITALS: RESP 18
[2018-01-25] MEDS ORDERED: hydrALAZINE HCL 50 MG TAB PO STA (12:09)
--- NOTE | 2018-01-25 12:11 | ED ---
Lower Extremity Injury HPI - General Chief Complaint: Extremity Injury, Lower Stated Complaint: diabetic foot pain Time Seen by Provider: 01/25/18 11:53 Source: patient, RN notes reviewed Mode of arrival: ambulatory Limitations: no limitations - History of Present Illness Initial Comments: This a 67-year-old male presents emergency Department chief complaint of left foot pain and swelling. Patient states she is known diabetic neuropathy. Patient states he seen here a few days ago for left leg swelling had lab work and ultrasound which showed no evidence of a blood clot. Patient has had a prior amputation of his second digit on his left foot along with the right leg amputation. Patient is concerned that he's had more swelling to his left foot and that there is no open wound. Patient states he is a poor controlled diabetic also has renal failure. - Related Data Home Medications Medication Instructions Recorded Confirmed Ergocalciferol [Vitamin D2 50,000 unit PO TU 07/08/16 10/30/17 (DRISDOL)] Fluticasone Nasal [place] [Flonase 2 spr EA NOSTRIL DAILY 06/30/17 10/30/17 Nasal [place]] Previous Rx's Medication Instructions Recorded Albuterol Inhaler [Ventolin Hfa 2 puff INHALATION RT-Q6H PRN #1 05/25/16 Inhaler] puff Gabapentin 800 mg PO TID #90 tab 05/25/16 Simvastatin [Zocor] 20 mg PO HS #30 tab 05/25/16 Insulin Glargine [Lantus] 15 unit SQ BID #0 07/05/17 Insulin Glulisine [Apidra Solostar] 10 unit SQ AC-TID #0 07/05/17 Lisinopril [Zestril] 10 mg PO DAILY #30 tab 07/05/17 Spironolactone 50 mg PO DAILY #30 tablet 07/05/17 Tamsulosin [Flomax] 0.4 mg PO DAILY #30 cap 07/05/17 amLODIPine [Norvasc] 10 mg PO DAILY #30 tab 07/05/17 hydrALAZINE HCL [Apresoline] 50 mg PO TID #90 tab 07/05/17 Cephalexin [Keflex] 500 mg PO Q6HR #40 cap 01/25/18 Allergies Allergy/AdvReac Type Severity Reaction Status Date / Time No Known Allergies Allergy Verified 08/25/18 11:50 Review of Systems ROS Statement: Those systems with pertinent positive or pertinent negative responses have been documented in the HPI. ROS Other: All systems not noted in ROS Statement are negative. 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 History of Any Multi-Drug Resistant Organisms: MRSA Date of last positivie culture/infection: 07/02/17 MDRO Source:: toe Past Surgical History: Hernia Repair, Orthopedic Surgery Additional Past Surgical History / Comment(s): 07/27/14 R BKA, liver bx in [place], RT ORBIT reconstruction, fracture of left hip 03/20/2014 with surgery, LT ARM ORIF, SAM KNEES scoped, LT FINGER, colonoscopy, EGD, L hand sx, R inguinal hernia surgery x2, circumcism. Past Anesthesia/Blood Transfusion Reactions: No Reported Reaction Past Psychological History: Anxiety Smoking Status: Current some day smoker Past Alcohol Use History: None Reported Past Drug Use History: None Reported - Past Family History Father Additional Family Medical History / Comment(s): ulcers Mother Family Medical History: Diabetes Mellitus Additional Family Medical History / Comment(s): Mother in her 80's. Sister(s) Family Medical History: Diabetes Mellitus General Exam Limitations: no limitations General appearance: alert, in no apparent distress Head exam: Present: atraumatic, normocephalic, normal inspection Eye exam: Present: normal appearance, PERRL, EOMI. Absent: scleral icterus, conjunctival injection, periorbital swelling Respiratory exam: Present: normal lung sounds bilaterally. Absent: respiratory distress, wheezes, rales, rhonchi, stridor Cardiovascular Exam: Present: regular rate, normal rhythm, normal heart sounds. Absent: systolic murmur, diastolic murmur, rubs, gallop, clicks GI/Abdominal exam: Present: soft, normal bowel sounds. Absent: distended, tenderness, guarding, rebound, rigid Extremities exam: Present: other (Left lower extremity there is mild swelling to left foot there is small open wound at the ball of the foot, there is no purulent drainage, pulses are noted. There is no calf tenderness) Skin exam: Present: warm Course Vital Signs 01/25/18 01/25/18 11:49 12:50 Temperature 98.7 F Pulse Rate 79 74 Respiratory 18 18 Rate Blood Pressure 190/106 197/109 O2 Sat by Pulse 100 99 Oximetry Medical Decision Making - Medical Decision Making 67-year-old male presented for left foot swelling. Patient does have a slight open wound on his foot. Patient has a known diabetic. Patient will be started on antibiotics at this time. Patient has negative CRP there is no evidence of osteomyelitis. Patient had repeat lab work which is unchanged. Patient will follow-up with PCP and return for any worsening symptoms. - Lab Data Result diagrams: 01/25/18 13:07 01/25/18 13:07 Lab Results 01/25/18 01/25/18 01/25/18 Range/Units 13:07 13:07 13:07 WBC 3.8 (3.8-10.6) k/uL RBC 3.65 L (4.30-5.90) m/uL Hgb 10.6 L (13.0-17.5) gm/dL Hct 32.8 L (39.0-53.0) % MCV 89.9 (80.0-100.0) fL MCH 29.1 (25.0-35.0) pg MCHC 32.4 (31.0-37.0) g/dL RDW 13.6 (11.5-15.5) % Plt Count 198 (150-450) k/uL Neutrophils % 58 % Lymphocytes % 33 % Monocytes % 6 % Eosinophils % 2 % Basophils % 0 % Neutrophils # 2.2 (1.3-7.7) k/uL Lymphocytes # 1.3 (1.0-4.8) k/uL Monocytes # 0.2 (0-1.0) k/uL Eosinophils # 0.1 (0-0.7) k/uL Basophils # 0.0 (0-0.2) k/uL Sodium 141 (137-145) mmol/L Potassium 4.0 (3.5-5.1) mmol/L Chloride 111 H (98-107) mmol/L Carbon Dioxide 26 (22-30) mmol/L Anion Gap 4 mmol/L BUN 50 H (9-20) mg/dL Creatinine 2.60 H (0.66-1.25) mg/dL Est GFR (CKD-EPI)AfAm 29 (>60 ml/min/1.73 sqM) Est GFR (CKD-EPI)NonAf 25 (>60 ml/min/1.73 sqM) Glucose 132 H (74-99) mg/dL Plasma Lactic Acid Driss 1.4 (0.7-2.0) mmol/L Calcium 8.3 L (8.4-10.2) mg/dL Total Bilirubin 0.2 (0.2-1.3) mg/dL AST 37 (17-59) U/L ALT 34 (21-72) U/L Alkaline Phosphatase 62 (38-126) U/L C-Reactive Protein <5.0 (<10.0) mg/L Total Protein 5.6 L (6.3-8.2) g/dL Albumin 2.8 L (3.5-5.0) g/dL Disposition Clinical Impression: Wound of left foot, Swelling of left foot Disposition: HOME SELF-CARE Condition: Stable Instructions: Acute Wound Care (ED) Additional Instructions: Please return to the Emergency Department if symptoms worsen or any other concerns. Prescriptions: Cephalexin [Keflex] 500 mg PO Q6HR #40 cap Is patient prescribed a controlled substance at d/c from ED?: No Referrals: Peyton Orozco MD [Primary Care Provider] - 1-2 days Time of Disposition: 13:44
[2018-01-25 13:17] LABS: Basophils % (A) 0 %; Eosinophils # (A) 0.1 k/uL (0-0.7); Eosinophils % (A) 2 %; HCT 32.8 % (39.0-53.0); HGB 10.6 gm/dL (13.0-17.5); Lymphocytes # (A) 1.3 k/uL (1.0-4.8); Lymphocytes % (A) 33 %; MCH 29.1 pg (25.0-35.0); MCHC 32.4 g/dL (31.0-37.0); MCV 89.9 fL (80.0-100.0); Mean Platelet Volume 7.9; Monocytes # (A) 0.2 k/uL (0-1.0); Monocytes % (A) 6 %; Neutrophils # (A) 2.2 k/uL (1.3-7.7); Neutrophils % (A) 58 %; Platelet Count 198 k/uL (150-450); RBC 3.65 m/uL (4.30-5.90); RDW 13.6 % (11.5-15.5); WBC 3.8 k/uL (3.8-10.6)
[2018-01-25 13:30] LABS: ALT 34 U/L (21-72); AST 37 U/L (17-59); Albumin 2.8 g/dL (3.5-5.0); Alkaline Phosphatase 62 U/L (38-126); Anion Gap 4 mmol/L; Blood Urea Nitrogen 50 mg/dL (9-20); C Reactive Protein <5.0 mg/L (<10.0); Calcium 8.3 mg/dL (8.4-10.2); Carbon Dioxide 26 mmol/L (22-30); Chloride 111 mmol/L (98-107); Glucose 132 mg/dL (74-99); Sodium 141 mmol/L (137-145); Total Bilirubin 0.2 mg/dL (0.2-1.3); Total Protein 5.6 g/dL (6.3-8.2)
--- NOTE | 2018-01-25 13:39 | XR ---
EXAMINATION TYPE: XR foot complete LT , 3 VIEWS DATE OF EXAM ORDERED: 01/25/2018 HISTORY: Pain. COMPARISON: Previous study dated 06/30/2017. FINDINGS: There is extensive degenerative change in the left first MTP joint. There is been a previo us partial amputation of the left second toe. There is a hallux valgus deformity. No acute fracture o r dislocation is seen. No bony destructive lesion is seen. IMPRESSION: 1. EXTENSIVE ARTHROPATHY OF THE LEFT FIRST MTP JOINT. 2. PARTIAL AMPUTATION OF THE LEFT SECOND TOE.
[2018-01-25] MEDS ORDERED: hydrALAZINE HCL 20 MG/ML 1 ML VIAL IVP STA (13:52)
[2018-01-25 13:54] VITALS: BP 209/116; PULSE 75; TEMP 97.8
== END 2018-01-25 14:29 | disposition home or self-care (01) ==
LOC: EC 11:33
DX: S91.302A Unspecified open wound, left foot, initial encounter (principal); M79.89 Other specified soft tissue disorders; J44.9 Chronic obstructive pulmonary disease, unspecified; I12.9 Hypertensive chronic kidney disease with stage 1 through stage 4 chronic kidney disease, or unspecified chronic kidney disease; E11.22 Type 2 diabetes mellitus with diabetic chronic kidney disease; N18.9 Chronic kidney disease, unspecified; Z86.19 Personal history of other infectious and parasitic diseases; Z86.14 Personal history of Methicillin resistant Staphylococcus aureus infection; F17.200 Nicotine dependence, unspecified, uncomplicated; Z79.51 Long term (current) use of inhaled steroids; Z89.422 Acquired absence of other left toe(s); Z89.511 Acquired absence of right leg below knee
CPT/HCPCS: 36415; 80053; 83605; 85025; 86140; 87040; 73630; 99283; 96374; J0360

== ENCOUNTER 2018-01-27 18:32 | Emergency (ER) | payer MEDICARE, OTHER ==
[2018-01-27] MEDS ORDERED: cloNIDine HCL 0.2 MG TAB PO STA (20:14)
--- NOTE | 2018-01-27 20:17 | ED ---
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 He reports that he was kicked out of the [facility] today because of blood clots as elevated. Patient has a past medical history consistent of hypertension, right leg amputee , and right second toe MTP. Patient reports that he did not take HIS blood pressure medication as he is supposed to. He rides emergency department blood pressure 200/120. He denies any symptoms associated with a blood pressure including headache, chest pain or shortness of breath. He reports that he was started on Keflex for an infection over his left foot 2 days ago. - Related Data Home Medications Medication Instructions Recorded Confirmed Ergocalciferol [Vitamin D2 50,000 unit PO TU 07/08/16 10/30/17 (DRISDOL)] Fluticasone Nasal [place] [Flonase 2 spr EA NOSTRIL DAILY 06/30/17 10/30/17 Nasal [place]] Previous Rx's Medication Instructions Recorded Albuterol Inhaler [Ventolin Hfa 2 puff INHALATION RT-Q6H PRN #1 05/25/16 Inhaler] puff Gabapentin 800 mg PO TID #90 tab 05/25/16 Simvastatin [Zocor] 20 mg PO HS #30 tab 05/25/16 Insulin Glargine [Lantus] 15 unit SQ BID #0 07/05/17 Insulin Glulisine [Apidra Solostar] 10 unit SQ AC-TID #0 07/05/17 Lisinopril [Zestril] 10 mg PO DAILY #30 tab 07/05/17 Spironolactone 50 mg PO DAILY #30 tablet 07/05/17 Tamsulosin [Flomax] 0.4 mg PO DAILY #30 cap 07/05/17 amLODIPine [Norvasc] 10 mg PO DAILY #30 tab 07/05/17 hydrALAZINE HCL [Apresoline] 50 mg PO TID #90 tab 07/05/17 Cephalexin [Keflex] 500 mg PO Q6HR #40 cap 01/25/18 Allergies Allergy/AdvReac Type Severity Reaction Status Date / Time No Known Allergies Allergy Verified 01/27/18 18:44 Review of Systems ROS Statement: Those systems with pertinent positive or pertinent negative responses have been documented in the HPI. ROS Other: All systems not noted in ROS Statement are negative. 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 History of Any Multi-Drug Resistant Organisms: MRSA Date of last positivie culture/infection: 07/02/17 MDRO Source:: toe Past Surgical History: Hernia Repair, Orthopedic Surgery Additional Past Surgical History / Comment(s): 07/27/14 R BKA, liver bx in [place], RT ORBIT reconstruction, fracture of left hip 03/20/2014 with surgery, LT ARM ORIF, SAM KNEES scoped, LT FINGER, colonoscopy, EGD, L hand sx, R inguinal hernia surgery x2, circumcism. Past Anesthesia/Blood Transfusion Reactions: No Reported Reaction Past Psychological History: Anxiety Smoking Status: Current some day smoker Past Alcohol Use History: Occasional Past Drug Use History: None Reported - Past Family History Father Additional Family Medical History / Comment(s): ulcers Mother Family Medical History: Diabetes Mellitus Additional Family Medical History / Comment(s): Mother in her 80's. Sister(s) Family Medical History: Diabetes Mellitus General Exam - General Exam Comments Initial Comments: 67-year-old male. Alert and oriented. No significant distress. Limitations: no limitations General appearance: alert, in no apparent distress Head exam: Present: atraumatic, normocephalic, normal inspection Eye exam: Present: normal appearance, PERRL, EOMI. Absent: scleral icterus, conjunctival injection, periorbital swelling ENT exam: Present: normal exam, mucous membranes moist Neck exam: Present: normal inspection. Absent: tenderness, meningismus, lymphadenopathy Respiratory exam: Present: normal lung sounds bilaterally. Absent: respiratory distress, wheezes, rales, rhonchi, stridor Cardiovascular Exam: Present: regular rate, normal rhythm, normal heart sounds. Absent: systolic murmur, diastolic murmur, rubs, gallop, clicks GI/Abdominal exam: Present: soft, normal bowel sounds. Absent: distended, tenderness, guarding, rebound, rigid Extremities exam: Present: full ROM, normal capillary refill, other ( is a prosthetic right lower extremity. He does have some swelling over the left foot. Normal pulses. Normal sensation. Full range of motion. At 7 missing second toe due to history of osteomyelitis.). Absent: normal inspection, tenderness, pedal edema, joint swelling, calf tenderness Back exam: Present: normal inspection Neurological exam: Present: alert, oriented X3, CN II-XII intact Psychiatric exam: Present: normal affect, normal mood Skin exam: Present: warm, dry, intact, normal color. Absent: rash Course Vital Signs 01/27/18 01/27/18 01/27/18 18:41 20:39 21:22 Temperature 98.7 F Pulse Rate 99 80 84 Respiratory 18 20 20 Rate Blood Pressure 200/124 220/120 203/120 O2 Sat by Pulse 100 98 97 Oximetry Medical Decision Making - Medical Decision Making 67-year-old male presents initially wanting a repeat breath alcohol test. He was found to be extremely hypertensive upon arrival to 20s over 120. He reports he did not take his blood pressure medication. He states is been doing some swelling over his left foot. Started on Keflex for infection. At this time patient's labwork was reviewed. Blood cell count is homeless. He does have some elevation of his creatinine that this is been chronic. Give the Patient fluids and blood pressure responded well to clonidine and labetalol. Patient has no symptoms associated with the high blood pressure. Denies any chest pain shortness of breath or headaches. At this time his back is negative. I discussed that he can follow-up with primary care physician. Discussed return parameters. Patient is history plan will comply. Return parameters were discussed. - Lab Data Result diagrams: 01/27/18 21:15 01/27/18 21:15 Lab Results 01/27/18 01/27/18 01/27/18 Range/Units 20:59 21:15 21:15 WBC 4.3 (3.8-10.6) k/uL RBC 3.75 L (4.30-5.90) m/uL Hgb 11.1 L (13.0-17.5) gm/dL Hct 34.7 L (39.0-53.0) % MCV 92.6 (80.0-100.0) fL MCH 29.7 (25.0-35.0) pg MCHC 32.0 (31.0-37.0) g/dL RDW 13.5 (11.5-15.5) % Plt Count 224 (150-450) k/uL Neutrophils % 57 % Lymphocytes % 33 % Monocytes % 6 % Eosinophils % 2 % Basophils % 0 % Neutrophils # 2.5 (1.3-7.7) k/uL Lymphocytes # 1.4 (1.0-4.8) k/uL Monocytes # 0.3 (0-1.0) k/uL Eosinophils # 0.1 (0-0.7) k/uL Basophils # 0.0 (0-0.2) k/uL Sodium 140 (137-145) mmol/L Potassium 4.8 (3.5-5.1) mmol/L Chloride 108 H (98-107) mmol/L Carbon Dioxide 27 (22-30) mmol/L Anion Gap 5 mmol/L BUN 39 H (9-20) mg/dL Creatinine 2.80 H (0.66-1.25) mg/dL Est GFR (CKD-EPI)AfAm 26 (>60 ml/min/1.73 sqM) Est GFR (CKD-EPI)NonAf 23 (>60 ml/min/1.73 sqM) Glucose 186 H (74-99) mg/dL POC Glucose (mg/dL) 198 H (75-99) mg/dL POC Glu Studio Operation Engineer ID Jeannie Lakhani Calcium 8.7 (8.4-10.2) mg/dL Total Bilirubin 0.2 (0.2-1.3) mg/dL AST 47 (17-59) U/L ALT 46 (21-72) U/L Alkaline Phosphatase 68 (38-126) U/L Total Protein 6.0 L (6.3-8.2) g/dL Albumin 3.0 L (3.5-5.0) g/dL Disposition Clinical Impression: No history of alcohol use, Hypertension Disposition: HOME SELF-CARE Condition: Good Instructions: Hypertension (ED) Additional Instructions: Patient advised to follow-up with your primary care physician. Return to emergency department if any alarming signs or symptoms occur. Is patient prescribed a controlled substance at d/c from ED?: No Referrals: Peyton Orozco MD [Primary Care Provider] - 1-2 days Time of Disposition: 22:14
[2018-01-27 21:14] LABS: Glucose,Whole Blood 198 mg/dL (75-99)
[2018-01-27] MEDS ORDERED: LABETALOL 5 MG/ML VIAL MDV IVP STA (21:23)
[2018-01-27 21:29] LABS: Basophils % (A) 0 %; Eosinophils # (A) 0.1 k/uL (0-0.7); Eosinophils % (A) 2 %; HCT 34.7 % (39.0-53.0); HGB 11.1 gm/dL (13.0-17.5); Lymphocytes # (A) 1.4 k/uL (1.0-4.8); Lymphocytes % (A) 33 %; MCH 29.7 pg (25.0-35.0); MCV 92.6 fL (80.0-100.0); Mean Platelet Volume 7.4; Monocytes # (A) 0.3 k/uL (0-1.0); Monocytes % (A) 6 %; Neutrophils # (A) 2.5 k/uL (1.3-7.7); Neutrophils % (A) 57 %; Platelet Count 224 k/uL (150-450); RBC 3.75 m/uL (4.30-5.90); RDW 13.5 % (11.5-15.5); WBC 4.3 k/uL (3.8-10.6)
[2018-01-27 21:47] LABS: Calcium 8.7 mg/dL (8.4-10.2); Potassium 4.8 mmol/L (3.5-5.1); Total Bilirubin 0.2 mg/dL (0.2-1.3)
[2018-01-27 22:17] VITALS: BP 136/74; PULSE 82; RESP 16; TEMP 98.4
== END 2018-01-27 22:36 | disposition home or self-care (01) ==
LOC: EC 18:32
DX: Z02.2 Encounter for examination for admission to residential institution (principal); R03.0 Elevated blood-pressure reading, without diagnosis of hypertension; L08.9 Local infection of the skin and subcutaneous tissue, unspecified; R79.89 Other specified abnormal findings of blood chemistry; J44.9 Chronic obstructive pulmonary disease, unspecified; F17.200 Nicotine dependence, unspecified, uncomplicated; Z79.51 Long term (current) use of inhaled steroids; Z59.0 Homelessness; Z86.718 Personal history of other venous thrombosis and embolism; Z89.511 Acquired absence of right leg below knee
CPT/HCPCS: 36415; 80053; 82075; 85025; 87040; 96374; 99283

== ENCOUNTER 2018-01-30 15:33 | Inpatient (IN) | payer MEDICARE, OTHER ==
[2018-01-30 19:10] LABS: Basophils % (A) 0 %; Eosinophils # (A) 0.1 k/uL (0-0.7); Eosinophils % (A) 2 %; HCT 34.5 % (39.0-53.0); Hypochromasia Slight; Lymphocytes # (A) 1.7 k/uL (1.0-4.8); Lymphocytes % (A) 38 %; MCH 29.9 pg (25.0-35.0); MCHC 31.8 g/dL (31.0-37.0); Mean Platelet Volume 8.1; Monocytes # (A) 0.2 k/uL (0-1.0); Monocytes % (A) 5 %; Neutrophils # (A) 2.4 k/uL (1.3-7.7); Neutrophils % (A) 53 %; Platelet Count 210 k/uL (150-450); RBC 3.68 m/uL (4.30-5.90); RDW 13.8 % (11.5-15.5); WBC 4.5 k/uL (3.8-10.6)
[2018-01-30 19:21] LABS: ALT 43 U/L (21-72); AST 41 U/L (17-59); Albumin 3.1 g/dL (3.5-5.0); Alkaline Phosphatase 69 U/L (38-126); Anion Gap 5 mmol/L; Blood Urea Nitrogen 48 mg/dL (9-20); C Reactive Protein <5.0 mg/L (<10.0); Calcium 8.5 mg/dL (8.4-10.2); Carbon Dioxide 24 mmol/L (22-30); Chloride 110 mmol/L (98-107); Glucose 171 mg/dL (74-99); Potassium 4.7 mmol/L (3.5-5.1); Sodium 139 mmol/L (137-145); Total Bilirubin 0.2 mg/dL (0.2-1.3); Total Protein 6.2 g/dL (6.3-8.2)
--- NOTE | 2018-01-30 19:36 | US ---
EXAMINATION TYPE: US venous doppler duplex LE LT DATE OF EXAM: 01/30/2018 7:22 PM COMPARISON: NONE CLINICAL HISTORY: Pain. Left leg edema SIDE PERFORMED: Left TECHNIQUE: The lower extremity deep venous system is examined utilizing real time linear array sonog saida with graded compression, doppler sonography and color-flow sonography. VESSELS IMAGED: External Iliac Vein (EIV) Common Femoral Vein Deep Femoral Vein Greater Saphenous Vein * Femoral Vein Popliteal Vein Small Saphenous Vein * Proximal Calf Veins (* superficial vessels) Left Leg: Negative for DVT No evidence of DVT left leg. IMPRESSION: Negative exam. No evidence of deep venous thrombosis in the left leg.
[2018-01-30] MEDS ORDERED: NALOXONE 0.4 MG/ML 1 ML VIAL IV PRN (20:07)
[2018-01-30] MEDS ORDERED: MORPHINE SULFATE 4 MG/ML SYRINGE IV PRN (20:07)
--- NOTE | 2018-01-30 20:07 | ED ---
General Adult HPI - General Chief complaint: Extremity Problem,Nontraumatic Stated complaint: leg & foot swelling Time Seen by Provider: 01/30/18 17:23 Source: patient, RN notes reviewed Mode of arrival: wheelchair Limitations: no limitations - History of Present Illness Initial comments: 67-year-old male with a significant medical history of CKD and IDDM presents to the emergency department for a chief complaint of left lower extremity swelling. Patient does have a history of osteomyelitis in the right foot which required amputation 2 years ago. Patient states the swelling in his left leg has been worsening over the past 10 days. He states it is becoming painful but he is still able to walk on it. He has been seen here multiple times in the emergency department in the past 10 days for this complaint. Patient denies any fevers or chills. Patient has no other complaints at this time including shortness of breath, chest pain, abdominal pain, nausea or vomiting, headache, or visual changes. - Related Data Home Medications Medication Instructions Recorded Confirmed Insulin Glargine [Lantus] 20 unit SQ BID 01/30/18 01/30/18 Insulin Glulisine [Apidra Solostar] 8 - 10 unit SQ AC-TID 01/30/18 01/30/18 glipiZIDE [Glucotrol] 5 mg PO TID 01/30/18 01/30/18 Previous Rx's Medication Instructions Recorded Gabapentin 800 mg PO TID #90 tab 05/25/16 Simvastatin [Zocor] 20 mg PO HS #30 tab 05/25/16 Lisinopril [Zestril] 10 mg PO DAILY #30 tab 07/05/17 Tamsulosin [Flomax] 0.4 mg PO DAILY #30 cap 07/05/17 amLODIPine [Norvasc] 10 mg PO DAILY #30 tab 07/05/17 Allergies Allergy/AdvReac Type Severity Reaction Status Date / Time No Known Allergies Allergy Verified 01/30/18 17:24 Review of Systems ROS Statement: Those systems with pertinent positive or pertinent negative responses have been documented in the HPI. ROS Other: All systems not noted in ROS Statement are negative. 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 History of Any Multi-Drug Resistant Organisms: MRSA Date of last positivie culture/infection: 07/02/17 MDRO Source:: toe Past Surgical History: Hernia Repair, Orthopedic Surgery Additional Past Surgical History / Comment(s): 07/27/14 R BKA, liver bx in [place], RT ORBIT reconstruction, fracture of left hip 03/20/2014 with surgery, LT ARM ORIF, SAM KNEES scoped, LT FINGER, colonoscopy, EGD, L hand sx, R inguinal hernia surgery x2, circumcism. Past Anesthesia/Blood Transfusion Reactions: No Reported Reaction Past Psychological History: Anxiety Smoking Status: Current some day smoker Past Alcohol Use History: Occasional Past Drug Use History: None Reported - Past Family History Father Additional Family Medical History / Comment(s): ulcers Mother Family Medical History: Diabetes Mellitus Additional Family Medical History / Comment(s): Mother in her 80's. Sister(s) Family Medical History: Diabetes Mellitus General Exam Limitations: no limitations General appearance: alert, in no apparent distress Head exam: Present: atraumatic, normocephalic, normal inspection Eye exam: Present: normal appearance, PERRL, EOMI. Absent: scleral icterus, conjunctival injection, periorbital swelling, periorbital tenderness ENT exam: Present: normal exam, normal oropharynx, mucous membranes moist, TM's normal bilaterally, normal external ear exam Neck exam: Present: normal inspection, full ROM. Absent: tenderness, meningismus, lymphadenopathy Respiratory exam: Present: normal lung sounds bilaterally. Absent: respiratory distress, wheezes, rales, rhonchi, stridor Cardiovascular Exam: Present: regular rate, normal rhythm, normal heart sounds. Absent: systolic murmur, diastolic murmur, rubs, gallop, clicks GI/Abdominal exam: Present: soft, normal bowel sounds. Absent: distended, tenderness, guarding, rebound, rigid Extremities exam: Present: full ROM (Patient has full range of motion of the left lower extremity), tenderness (Tenderness in the left foot), normal capillary refill (Doppler pulse strong, capillary refill less than 2 seconds), pedal edema (Patient has 2+ pitting edema in the left foot), other (Sensation intact in the left lower extremity. Patient's second toe is amputated). Absent : calf tenderness (Tenderness in the left calf, negative Homans sign) Course Vital Signs 01/30/18 15:45 Temperature 98.6 F Pulse Rate 83 Respiratory 18 Rate Blood Pressure 168/95 O2 Sat by Pulse 99 Oximetry Medical Decision Making - Medical Decision Making 67-year-old male to the emergency department for left lower extremity swelling. Patient has been seen in this ER about 4 times for this. Patient has a history of IDDM and CKD. Patient also had right foot amputated 3 years ago due to osteomyelitis. CBC and CRP were ordered to evaluate for cellulitis. No evidence of leukocytosis. CRP less than 5. Ultrasound for DVT was negative. Patient does have chronic kidney failure. In the past week and creatinine has increased from 2.38 to 3.10. Patient likely experiencing acute on chronic kidney failure which is a possible cause of his swelling. Patient is also taking amlodipine which could be contributing. At this point, considering patient's increased creatinine levels over 1 week as well as history of right leg amputation and insulin-dependent diabetes he will be admitted with nephrology consult. - Lab Data Result diagrams: 01/30/18 18:56 01/30/18 18:56 Lab Results 01/30/18 01/30/18 Range/Units 18:56 18:56 WBC 4.5 (3.8-10.6) k/uL RBC 3.68 L (4.30-5.90) m/uL Hgb 11.0 L (13.0-17.5) gm/dL Hct 34.5 L (39.0-53.0) % MCV 94.0 (80.0-100.0) fL MCH 29.9 (25.0-35.0) pg MCHC 31.8 (31.0-37.0) g/dL RDW 13.8 (11.5-15.5) % Plt Count 210 (150-450) k/uL Neutrophils % 53 % Lymphocytes % 38 % Monocytes % 5 % Eosinophils % 2 % Basophils % 0 % Neutrophils # 2.4 (1.3-7.7) k/uL Lymphocytes # 1.7 (1.0-4.8) k/uL Monocytes # 0.2 (0-1.0) k/uL Eosinophils # 0.1 (0-0.7) k/uL Basophils # 0.0 (0-0.2) k/uL Hypochromasia Slight Sodium 139 (137-145) mmol/L Potassium 4.7 (3.5-5.1) mmol/L Chloride 110 H (98-107) mmol/L Carbon Dioxide 24 (22-30) mmol/L Anion Gap 5 mmol/L BUN 48 H (9-20) mg/dL Creatinine 3.10 H (0.66-1.25) mg/dL Est GFR (CKD-EPI)AfAm 23 (>60 ml/min/1.73 sqM) Est GFR (CKD-EPI)NonAf 20 (>60 ml/min/1.73 sqM) Glucose 171 H (74-99) mg/dL Calcium 8.5 (8.4-10.2) mg/dL Total Bilirubin 0.2 (0.2-1.3) mg/dL AST 41 (17-59) U/L ALT 43 (21-72) U/L Alkaline Phosphatase 69 (38-126) U/L C-Reactive Protein <5.0 (<10.0) mg/L Total Protein 6.2 L (6.3-8.2) g/dL Albumin 3.1 L (3.5-5.0) g/dL Disposition Clinical Impression: Acute kidney injury, Chronic kidney disease, Hypertension Disposition: ADMITTED IP TO THIS [facility] Condition: Good Referrals: None,Stated [Primary Care Provider] - 1-2 days Time of Disposition: 20:07
[2018-01-30] MEDS ORDERED: LABETALOL 5 MG/ML VIAL MDV IVP STA ×3 (20:24→22:31)
[2018-01-30] MEDS: SODIUM CHLORIDE 0.9% 1,000 ML IV SCH (20:31)
[2018-01-30] MEDS ORDERED: cloNIDine HCL 0.2 MG TAB PO STA (21:24)
[2018-01-30] MEDS: ATORVASTATIN 10 MG TAB PO SCH (23:39)
[2018-01-30] MEDS: GABAPENTIN 400 MG CAP PO SCH (23:39)
[2018-01-30 23:43] LABS: Glucose,Whole Blood 170 mg/dL (75-99)
[2018-01-31] MEDS: INSULIN ASPART 100 UNIT/ML 1 ML 10 ML VIAL SQ SCH ×5 (00:22→21:55)
--- NOTE | 2018-01-31 01:43 | P.HPIM ---
History of Present Illness H&P Date: 01/31/18 Chief Complaint: Left foot pain 67-year-old male with extensive past medical history of diabetes mellitus, hypertension, chronic anemia, CK D stage III Patient presented to the ED multiple times over the past 10 days due to left foot pain. He describes sharp pain in his left foot mainly in the sole rates it as 6 out of 10 in severity and nonradiating improves with rest as been off and on for the past 10 days he visited the ED multiple times for the same reason he also noticed some swelling of his left leg over same duration of time. Patient indicates that he is homeless and lives in a [place] [facility] and he spends all his day walking around. He denies any fevers or chills denies any nausea or vomiting denies any abdominal pain or chest pain denies any trouble breathing denies any headache. In the emergency department he has duplex ultrasound performed showed no acute DVT. Blood work showed worsening creatinine from his baseline and stable chronic anemia Review of Systems Pertinent positives as noted in HPI. 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 History of Any Multi-Drug Resistant Organisms: MRSA Date of last positivie culture/infection: 07/02/17 MDRO Source:: toe Past Surgical History: Orthopedic Surgery Additional Past Surgical History / Comment(s): 07/27/14 R BKA, liver bx in [place], RT ORBIT reconstruction, fracture of left hip 03/20/2014 with surgery, LT ARM ORIF, SAM KNEES scoped, LT FINGER, colonoscopy, EGD, L hand sx, R inguinal hernia surgery x2, circumcism. Past Anesthesia/Blood Transfusion Reactions: No Reported Reaction Past Psychological History: Anxiety, Depression Additional Psychological History / Comment(s): patient live at 3/4 house Smoking Status: Current every day smoker Past Alcohol Use History: Occasional Additional Past Alcohol Use History / Comment(s): Old record indicates pt started smoking in 1968 Past Drug Use History: None Reported Additional Drug Use History / Comment(s): Past history of substance abuse. Old medical records indicate cocaine abuse and drug screens in past positive for cocaine and opiates. - Past Family History Father Additional Family Medical History / Comment(s): ulcers Mother Family Medical History: Diabetes Mellitus Additional Family Medical History / Comment(s): Mother in her 80's. Sister(s) Family Medical History: Diabetes Mellitus Medications and Allergies Home Medications Medication Instructions Recorded Confirmed Type Gabapentin 800 mg PO TID #90 tab 05/25/16 01/30/18 Rx Simvastatin [Zocor] 20 mg PO HS #30 tab 05/25/16 01/30/18 Rx Lisinopril [Zestril] 10 mg PO DAILY #30 tab 07/05/17 01/30/18 Rx Tamsulosin [Flomax] 0.4 mg PO DAILY #30 cap 07/05/17 01/30/18 Rx amLODIPine [Norvasc] 10 mg PO DAILY #30 tab 07/05/17 01/30/18 Rx Insulin Glargine [Lantus] 20 unit SQ BID 01/30/18 01/30/18 History Insulin Glulisine [Apidra Solostar] 8 - 10 unit SQ AC-TID 01/30/18 01/30/18 History glipiZIDE [Glucotrol] 5 mg PO TID 01/30/18 01/30/18 History Allergies Allergy/AdvReac Type Severity Reaction Status Date / Time No Known Allergies Allergy Verified 01/30/18 17:24 Physical Exam Vitals: Vital Signs Temp Pulse Resp BP Pulse Ox 01/30/18 23:05 67 18 165/95 97 01/30/18 23:00 97.7 F 67 18 167/99 100 01/30/18 22:55 70 20 170/100 100 01/30/18 22:47 66 20 169/96 97 01/30/18 22:43 69 20 185/103 97 01/30/18 22:33 72 20 196/111 97 01/30/18 21:20 77 18 220/127 99 01/30/18 20:19 78 20 206/107 100 01/30/18 15:45 98.6 F 83 18 168/95 99 Intake and Output 01/30/18 01/30/18 01/31/18 14:59 22:59 06:59 Other: Weight 68.492 kg 72.575 kg Constitutional: No acute distress, conversant, pleasant Eyes: Anicteric sclerae, moist conjunctiva, no lid-lag Pupils equal round reactive to light ENMT: NC/AT Oropharynx clear, no erythema, or exudates Neck: Supple, FROM, no masses, or JVD No carotid bruits No thyromegaly Lungs: Clear to auscultation Clear to percussion Normal respiratory effort, no accessory muscle use Cardiovascular: Heart regular in rate and rhythm, No murmurs, gallops, or rubs +1 left Leg edema Abdominal: Soft Nontender, no guarding, rebound or rigidity Abdomen moving with respiration Normoactive bowel sounds No hepatomegaly, No splenomegaly No palpable mass No abdominal wall hernia noted Skin: Normal temperature, tone, texture, turgor No induration No subcutaneous nodules No rash, lesions No ulcers Extremities: Right BKA No digital cyanosis No clubbing Pedal pulses not palpable due to pedal edema Radial pulses intact and symmetrical No calf tenderness Psychiatric: Alert and oriented to person, place and time Appropriate affect fair judgment Neuro Muscles Strength 4/5 in all 3 extremities (right BKA) Sensation to light touch grossly present throughout Cranial nerves II-XII grossly intact No focal sensory deficits Lymphatics: no palpable cervical or supraclavicular , or inguinal lymph nodes Results CBC & Chem 7: 01/30/18 18:56 01/30/18 18:56 Labs: Abnormal Lab Results - Last 24 Hours (Table) 01/30/18 01/30/18 01/30/18 Range/Units 18:56 18:56 23:36 RBC 3.68 L (4.30-5.90) m/uL Hgb 11.0 L (13.0-17.5) gm/dL Hct 34.5 L (39.0-53.0) % Chloride 110 H (98-107) mmol/L BUN 48 H (9-20) mg/dL Creatinine 3.10 H (0.66-1.25) mg/dL Glucose 171 H (74-99) mg/dL POC Glucose (mg/dL) 170 H (75-99) mg/dL Total Protein 6.2 L (6.3-8.2) g/dL Albumin 3.1 L (3.5-5.0) g/dL Thrombosis Risk Factor Assmnt - Choose All That Apply Any of the Below Risk Factors Present?: Yes Each Factor Represents 1 point: Abnormal pulmonary function (COPD), Swollen legs (current) Other Risk Factors: Yes Each Risk Factor Represents 2 Points: Age 61-74 years Each Risk Factor Represents 3 Points: History of DVT/PE Thrombosis Risk Factor Assessment Total Risk Factor Score: 7 Thrombosis Risk Factor Assessment Level: High Risk Assessment and Plan Assessment: 67-year-old male with multiple comorbidities admitted as an inpatient due to acute kidney injury on Ckd stage III. Patient has history of diabetes mellitus. currently patient is homeless living in shelters since this day wandering around. He presented to the hospital initially pain in his foot, venous duplex ultrasound performed showed no acute DVT Plan: Acute kidney injury on CK D stage III most likely secondary to prerenal ATN due to dehydration Hold BETTY inhibitor Monitor urine output IV fluid hydration Monitor renal function Left foot pain, mostly musculoskeletal secondary to overuse Patient is homeless and lives in a [place] [facility] and he spends all his daily walking around Pain control Left leg swelling, venous duplex ultrasound showed no acute DVT Suspected due to venous insufficiency Elevation of the left and compression stocking Diabetes mellitus Continue long-acting insulin Insulin sliding scale Chronic anemia, secondary to chronic disease Patient denies any GI bleeding Currently stable around Hypertension Currently controlled Continue amlodipine BPH Continue Flomax DVT prophylaxis Heparin subcu 3 times a day Surrogate decision-maker: Patient sister andrews CODE STATUS: Full code Anticipated discharge: 48-[address]:[facility] A total of 60 minutes was spent on the care of this complex patient more than 50 % of the time was spent in counseling and care coordination.
[2018-01-31] MEDS ORDERED: glipiZIDE 5 MG TAB PO SCH (07:30)
[2018-01-31 07:54] LABS: HCT 33.2 % (39.0-53.0); HGB 10.4 gm/dL (13.0-17.5); RBC 3.49 m/uL (4.30-5.90); WBC 3.6 k/uL (3.8-10.6)
[2018-01-31 07:54] LABS: Glucose,Whole Blood 234 mg/dL (75-99)
[2018-01-31 07:55] LABS: Basophils % (A) 0 %; Eosinophils # (A) 0.1 k/uL (0-0.7); Eosinophils % (A) 2 %; Hypochromasia Slight; Lymphocytes # (A) 1.3 k/uL (1.0-4.8); Lymphocytes % (A) 38 %; MCH 29.7 pg (25.0-35.0); MCHC 31.2 g/dL (31.0-37.0); MCV 95.1 fL (80.0-100.0); Mean Platelet Volume 7.8; Monocytes # (A) 0.2 k/uL (0-1.0); Monocytes % (A) 6 %; Neutrophils # (A) 1.9 k/uL (1.3-7.7); Neutrophils % (A) 52 %; Platelet Count 181 k/uL (150-450); RDW 13.7 % (11.5-15.5)
[2018-01-31 08:04] LABS: Calcium 8.2 mg/dL (8.4-10.2); Potassium 4.4 mmol/L (3.5-5.1)
[2018-01-31] MEDS: INSULIN DETEMIR 100 UNIT/ML 10 ML VIAL SQ SCH ×2 (08:23→21:56)
[2018-01-31] MEDS: HEPARIN SODIUM,PORCINE 5,000 UNIT/ML 1 ML VIAL SQ SCH ×3 (08:23→21:57)
[2018-01-31] MEDS: GABAPENTIN 400 MG CAP PO SCH ×3 (08:24→21:56)
[2018-01-31] MEDS ORDERED: LISINOPRIL 10 MG TAB PO SCH (09:00)
[2018-01-31] MEDS ORDERED: amLODIPine 10 MG TAB PO SCH (09:00)
[2018-01-31] MEDS: TAMSULOSIN 0.4 MG CAP.ER.24H PO SCH (09:40)
[2018-01-31] MEDS: SODIUM CHLORIDE 0.9% 1,000 ML IV SCH ×2 (09:41→22:35)
[2018-01-31] MEDS ORDERED: cloNIDine HCL 0.2 MG TAB PO STA (10:43)
--- NOTE | 2018-01-31 10:48 | P.PN ---
Progress Note - Text Progress Note Date: 01/31/18 Patient reporting uncontrollable blood pressures consistent with her findings here, also history of CK D stage III, type 2 diabetes and hypertension. Patient reports history of, congestive heart failure unknown type has been having increased left lower extremity swelling, recent venous Dopplers were negative for DVT. Review of records indicates the patient has hypertensive urgency We'll initiate clonidine therapy 3 times a day, check a renal ultrasound , echocardiogram, A1c Accu-Cheks. Concern for possible cardiorenal with hypertensive nephrosclerosis, will monitor blood pressures much closely
[2018-01-31 11:15] LABS: Glucose,Whole Blood 128 mg/dL (75-99)
--- NOTE | 2018-01-31 11:53 | ECHOF ---
Referral Reason:CHF MEASUREMENTS -------- HEIGHT: 182.9 cm WEIGHT: 68.0 kg BP: RVIDd: 3.4 cm (< 3.3) IVSd: 1.7 cm (0.6 - 1.1) LVIDd: 3.6 cm (3.9 - 5.3) LVPWd: 1.5 cm (0.6 - 1.1) IVSs: 2.0 cm LVIDs: 2.2 cm LVPWs: 1.9 cm LA Diam: 2.6 cm (2.7 - 3.8) Ao Diam: 3.9 cm (2.0 - 3.7) AV Cusp: 2.2 cm (1.5 - 2.6) LA Diam: 3.5 cm (2.7 - 3.8) MV EXCURSION: 19.436 mm (> 18.000) MV EF SLOPE: 78 mm/s (70 - 150) EPSS: 0.7 cm MV E Jean: 0.65 m/s MV DecT: 212 ms MV A Jean: 0.74 m/s MV E/A Ratio: 0.87 RAP: 5.00 mmHg RVSP: 24.02 mmHg FINDINGS -------- Sinus rhythm. This was a technically good study. The left ventricular size is normal. There is severe concentric left ventricular hypertrophy. Ove rall left ventricular systolic function is normal with, an EF between 55 - 60 %. The right ventricle is normal in size. The left atrial size is normal. The right atrial size is normal. The aortic valve is trileaflet, and appears structurally normal. No aortic stenosis or regurgitation. The mitral valve is normal. Mild mitral regurgitation is present. Mild tricuspid regurgitation present. There is no evidence of pulmonary hypertension. The right v entricular systolic pressure, as measured by Doppler, is 24.02mmHg. Trace/mild (physiologic) pulmonic regurgitation. The aortic root size is normal. There is no pericardial effusion. CONCLUSIONS -------- 1. Sinus rhythm. 2. The left ventricular size is normal. 3. There is severe concentric left ventricular hypertrophy. 4. Overall left ventricular systolic function is normal with, an EF between 55 - 60 %. 5. The left atrial size is normal. 6. The aortic valve is trileaflet, and appears structurally normal. No aortic stenosis or regurgitati on. 7. Mild mitral regurgitation is present. 8. Mild tricuspid regurgitation present. 9. There is no evidence of pulmonary hypertension. 10. Trace/mild (physiologic) pulmonic regurgitation. 11. The aortic root size is normal. 12. There is no pericardial effusion. HIGH SCHOOL LIBRARIAN: Lisa wHang RDCS
[2018-01-31 13:02] LABS: Appearance,Urine Clear (Clear); Bilirubin,Urine Negative (Negative); Blood,Urine Trace (Negative); Color,Urine Colorless; Glucose,Urine (UA) Trace (Negative); Ketones,Urine Negative (Negative); Leukocyte Esterase,Urine Negative (Negative); Nitrite,Urine Negative (Negative); PH, Urine 6.5 (5.0-8.0); Protein,Urine 2+ (Negative); RBC,Urine <1 /hpf (0-5); Specific Gravity,Urine 1.007 (1.001-1.035); Urobilinogen,Urine <2.0 mg/dL (<2.0); WBC,Urine <1 /hpf (0-5)
[2018-01-31] MEDS: NICOTINE 14MG/24HR PATCH TRANSDERM SCH (13:44)
[2018-01-31] MEDS ORDERED: cloNIDine HCL 0.2 MG TAB PO SCH (16:00)
[2018-01-31 16:38] LABS: Glucose,Whole Blood 187 mg/dL (75-99)
[2018-01-31] MEDS: VERAPAMIL 40 MG TAB PO SCH ×2 (17:46→21:56)
[2018-01-31 19:43] LABS: Hemoglobin A1C 10.3 % (4.0-6.0)
[2018-01-31 21:06] LABS: Glucose,Whole Blood 238 mg/dL (75-99)
[2018-01-31] MEDS: ACETAMINOPHEN TAB 325 MG TAB PO PRN (21:55)
[2018-01-31] MEDS: SPIRONOLACTONE 25 MG TAB PO SCH (21:57)
[2018-01-31] MEDS: ATORVASTATIN 10 MG TAB PO SCH (21:57)
[2018-02-01] MEDS: SODIUM CHLORIDE 0.9% 1,000 ML IV SCH ×2 (06:05→17:10)
[2018-02-01 07:13] LABS: Glucose,Whole Blood 61 mg/dL (75-99)
[2018-02-01] MEDS ORDERED: DEXTROSE 50%-WATER 50 ML SYRINGE IVP ONE (07:13)
[2018-02-01] MEDS ORDERED: DEXTROSE 50%-WATER 50 ML SYRINGE IVP STA ×2 (07:14→10:52)
[2018-02-01] MEDS: INSULIN ASPART 100 UNIT/ML 1 ML 10 ML VIAL SQ SCH ×4 (07:19→21:16)
[2018-02-01 07:36] LABS: Glucose,Whole Blood 136 mg/dL (75-99)
[2018-02-01] MEDS: LISINOPRIL 20 MG TAB PO SCH (08:16)
[2018-02-01] MEDS: VERAPAMIL 40 MG TAB PO SCH ×3 (08:16→21:07)
[2018-02-01] MEDS: TAMSULOSIN 0.4 MG CAP.ER.24H PO SCH (08:16)
[2018-02-01] MEDS: GABAPENTIN 400 MG CAP PO SCH (08:16)
[2018-02-01] MEDS: NICOTINE 14MG/24HR PATCH TRANSDERM SCH (08:17)
[2018-02-01] MEDS: HEPARIN SODIUM,PORCINE 5,000 UNIT/ML 1 ML VIAL SQ SCH ×3 (08:17→23:07)
[2018-02-01] MEDS: SPIRONOLACTONE 25 MG TAB PO SCH ×2 (08:17→21:07)
[2018-02-01 08:20] LABS: Calcium 7.9 mg/dL (8.4-10.2)
[2018-02-01] MEDS: INSULIN DETEMIR 100 UNIT/ML 10 ML VIAL SQ SCH ×2 (08:24→21:16)
[2018-02-01] MEDS: GABAPENTIN 100 MG CAP PO SCH ×3 (08:54→21:08)
--- NOTE | 2018-02-01 09:14 | P.NPCON ---
History of Present Illness - Reason for Consult acute renal failure - History of Present Illness Reason for consultation: Acute kidney injury History of present illness: Patient is a 67-year-old male seen in renal consultation for acute kidney injury. Patient appears to have chronic kidney disease stage IIIB with baseline creatinine fluctuating in the range of 1.5-2.5. Creatinine this admission was 3.1 and is down to 2.98 today. He is currently maintained on normal saline at 75 mL an hour. Patient presented to the hospital with left lower extremity swelling. Ultrasound revealed no evidence of DVT. Echocardiogram revealed a preserved ejection fraction. He admits to good urine output. No hematuria or dysuria. Denies use of NSAIDs. Oral intake is good. No nausea vomiting or diarrhea. Patient does have history of diabetes mellitus and was diagnosed in 1996. His hemoglobin A1c is 10.3 this admission. Patient states his mother and aunt were on dialysis but is unsure of etiology. Oral intake is fair. Blood pressures were running high and lisinopril has been added. Patient denies any headaches dizziness or syncopal episodes. Does admit to smoking cigarettes but no alcohol or IV drug abuse. Vital signs are stable. General: The patient appeared well nourished and normally developed. HEENT: Head exam is unremarkable. Neck is without jugular venous distension. LUNGS: Lungs are clear to auscultation and percussion. Breath sounds decreased. HEART: Rate and Rhythm are regular. First and second heart sounds normal. No murmurs, rubs or gallops. ABDOMEN: Abdominal exam reveals normal bowel sounds. Non-tender and non- distended. No evidence of peritonitis. EXTREMITITES: Trace edema left lower extremity. Right BKA noted. 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 History of Any Multi-Drug Resistant Organisms: MRSA Date of last positivie culture/infection: 07/02/17 MDRO Source:: toe Past Surgical History: Orthopedic Surgery Additional Past Surgical History / Comment(s): 07/27/14 R BKA, liver bx in [place], RT ORBIT reconstruction, fracture of left hip 03/20/2014 with surgery, LT ARM ORIF, SAM KNEES scoped, LT FINGER, colonoscopy, EGD, L hand sx, R inguinal hernia surgery x2, circumcism. Past Anesthesia/Blood Transfusion Reactions: No Reported Reaction Past Psychological History: Anxiety, Depression Additional Psychological History / Comment(s): patient live at [address] [place] [address] Smoking Status: Current every day smoker Past Alcohol Use History: Occasional Additional Past Alcohol Use History / Comment(s): Old record indicates pt started smoking in 1968 Past Drug Use History: None Reported Additional Drug Use History / Comment(s): Past history of substance abuse. Old medical records indicate cocaine abuse and drug screens in past positive for cocaine and opiates. - Past Family History Father Additional Family Medical History / Comment(s): ulcers Mother Family Medical History: Diabetes Mellitus Additional Family Medical History / Comment(s): Mother in her 80's. Sister(s) Family Medical History: Diabetes Mellitus Medications and Allergies Home Medications Medication Instructions Recorded Confirmed Type Gabapentin 800 mg PO TID #90 tab 05/25/16 01/30/18 Rx Simvastatin [Zocor] 20 mg PO HS #30 tab 05/25/16 01/30/18 Rx Lisinopril [Zestril] 10 mg PO DAILY #30 tab 07/05/17 01/30/18 Rx Tamsulosin [Flomax] 0.4 mg PO DAILY #30 cap 07/05/17 01/30/18 Rx amLODIPine [Norvasc] 10 mg PO DAILY #30 tab 07/05/17 01/30/18 Rx Insulin Glargine [Lantus] 20 unit SQ BID 01/30/18 01/30/18 History Insulin Glulisine [Apidra Solostar] 8 - 10 unit SQ AC-TID 01/30/18 01/30/18 History glipiZIDE [Glucotrol] 5 mg PO TID 01/30/18 01/30/18 History Allergies Allergy/AdvReac Type Severity Reaction Status Date / Time No Known Allergies Allergy Verified 01/30/18 17:24 Physical Exam Vitals: Vital Signs Temp Pulse Resp BP BP Pulse Ox 02/01/18 04:00 97.0 F L 61 16 159/92 99 01/31/18 20:10 96.8 F L 59 L 14 139/87 98 01/31/18 17:19 16 01/31/18 15:30 97.6 F 64 16 141/74 100 01/31/18 11:30 97.6 F 63 16 190/107 100 Intake and Output 01/31/18 02/01/18 02/01/18 22:59 06:59 14:59 Intake Total 700 Output Total 400 700 Balance 700 -400 -700 Intake: Oral 700 Output: Urine 400 700 Other: Voiding Method Urinal # Voids 1 # Bowel Movements 0 Weight 68.492 kg 71 kg Results - Lab Results Most recent lab results Calcium 7.9 mg/dL (8.4-10.2) L 02/01/18 07:35 01/31/18 07:28 02/01/18 07:35 Assessment and Plan Plan: Assessment: 1. Nonoliguric acute kidney injury mostly prerenal improved with IV hydration. Creatinine was 2.1 on admission and is down to 2.9 today. 2. Insulin-dependent diabetes mellitus. 3. Chronic kidney disease stage IIIB with baseline creatinine in the range of 1.5-2.5. Patient has proteinuria which is likely from diabetic kidney disease but need to rule out GN. 4. Hypertension with chronic kidney disease. Better controlled today. 5. Anemia of chronic kidney disease. Hemoglobin at goal. Rule out iron deficiency. Plan: Continue normal saline at 75 mL an hour. Follow-up renal ultrasound. Quantify proteinuria and check serologies. Maintain current antihypertensives. If renal function worsens, will discontinue BETTY inhibitor. Continue to monitor renal function and urine output. Repeat electrolytes in the morning. Check iron studies. Thank you for the consultation. I will continue to follow the patient with you during his hospital stay.
[2018-02-01 10:50] LABS: Glucose,Whole Blood 61 mg/dL (75-99)
[2018-02-01] MEDS: ACETAMINOPHEN TAB 325 MG TAB PO PRN (10:59)
--- NOTE | 2018-02-01 11:13 | P.PN ---
Subjective Progress Note Date: 02/01/18 Patient in good spirits, radiation tech waiting to take the patient not to have his renal ultrasound done, patient denies any headaches chest pain confusion blurry vision focals weakness or slurred speech. No acute events overnight blood pressure elevated but improved since yesterday Objective - Vital Signs Vital signs: Vital Signs Temp 97.6 F 02/01/18 08:00 Pulse 58 L 02/01/18 08:00 Resp 18 02/01/18 08:00 BP 171/93 02/01/18 08:00 Pulse Ox 100 02/01/18 08:00 Intake & Output 01/31/18 02/01/18 02/01/18 18:59 06:59 18:59 Intake Total 600 700 Output Total 400 700 Balance 600 300 -700 Weight 71 kg Intake: Oral 600 700 Output: Urine 400 700 Other: Voiding Method Urinal Urinal # Voids 6 1 # Bowel Movements 0 - Exam Constitutional: No acute distress, conversant, pleasant Eyes: Anicteric sclerae, moist conjunctiva, no lid-lag, PERRLA ENMT: NC/AT,Oropharynx clear, no erythema, exudates Neck:Supple, FROM, no masses, or JVD, No carotid bruits; No thyromegaly Lungs: Clear to auscultation, Clear to percussion, Normal respiratory effort, no accessory muscle use Cardiovascular: Heart regular in rate and rhythm, No murmurs, gallops, or rubs no peripheral edema Abdominal: Soft Nontender, nom distended, no guarding, no rebound or rigidity, Normoactive bowel sounds No hepatomegaly, No splenomegaly, No palpable mass No abdominal wall hernia noted Skin: Normal temperature, tone, texture, turgor, No induration No subcutaneous nodules, No rash, lesions, No ulcers Extremities:No digital cyanosis No clubbing, Pedal pulses intact and symmetrical Radial pulses intact and symmetrical Normal gait and station, No calf tenderness, right BKA Psychiatric: Alert and oriented to person, place and time, Appropriate affect Intact judgement Neuro: Muscles Strength 5/5 in all 4 extremities, Sensation to light touch grossly present throughout, Cranial nerves II-XII grossly intact. No focal sensory deficits - Labs CBC & Chem 7: 01/31/18 07:28 02/01/18 07:35 Labs: Abnormal Lab Results - Last 24 Hours (Table) 01/31/18 01/31/18 01/31/18 Range/Units 07:28 11:10 11:45 Chloride (98-107) mmol/L BUN (9-20) mg/dL Creatinine (0.66-1.25) mg/dL Glucose (74-99) mg/dL POC Glucose (mg/dL) 128 H (75-99) mg/dL Hemoglobin A1c 10.3 H (4.0-6.0) % Calcium (8.4-10.2) mg/dL Urine Protein 2+ H (Negative) Urine Glucose (UA) Trace H (Negative) Urine Blood Trace H (Negative) U Random Total Protein (<12) mg/dL 01/31/18 01/31/18 01/31/18 Range/Units 11:45 16:33 21:04 Chloride (98-107) mmol/L BUN (9-20) mg/dL Creatinine (0.66-1.25) mg/dL Glucose (74-99) mg/dL POC Glucose (mg/dL) 187 H 238 H (75-99) mg/dL Hemoglobin A1c (4.0-6.0) % Calcium (8.4-10.2) mg/dL Urine Protein (Negative) Urine Glucose (UA) (Negative) Urine Blood (Negative) U Random Total Protein 284 H (<12) mg/dL 02/01/18 02/01/18 02/01/18 Range/Units 07:02 07:35 07:35 Chloride 112 H (98-107) mmol/L BUN 43 H (9-20) mg/dL Creatinine 2.98 H (0.66-1.25) mg/dL Glucose 120 H (74-99) mg/dL POC Glucose (mg/dL) 61 L 136 H (75-99) mg/dL Hemoglobin A1c (4.0-6.0) % Calcium 7.9 L (8.4-10.2) mg/dL Urine Protein (Negative) Urine Glucose (UA) (Negative) Urine Blood (Negative) U Random Total Protein (<12) mg/dL 02/01/18 Range/Units 10:46 Chloride (98-107) mmol/L BUN (9-20) mg/dL Creatinine (0.66-1.25) mg/dL Glucose (74-99) mg/dL POC Glucose (mg/dL) 61 L (75-99) mg/dL Hemoglobin A1c (4.0-6.0) % Calcium (8.4-10.2) mg/dL Urine Protein (Negative) Urine Glucose (UA) (Negative) Urine Blood (Negative) U Random Total Protein (<12) mg/dL Assessment and Plan (1) GOKUL (acute kidney injury) Narrative/Plan: * Superimposed on CKD stage 3 with a creatinine trending down to 2.98 * Likely nonoliguric improving with hydration * Renal ultrasound ordered, urinalysis showing proteinuria Current Visit: Yes Status: Acute Code(s): N17.9 - ACUTE KIDNEY FAILURE, UNSPECIFIED SNOMED Code(s): 27014817 (2) Accelerated hypertension Narrative/Plan: * Blood pressure elevated this morning we'll recheck * Continue current regimen for now with lisinopril 20 mg daily, verapamil 120mg TID increase Spirinolactone to 50mg BID * Echocardiogram indicating normal ejection fraction Current Visit: Yes Status: Acute Code(s): I10 - ESSENTIAL (PRIMARY) HYPERTENSION SNOMED Code(s): 49314270 (3) Chronic kidney disease, stage 3 (moderate) Narrative/Plan: * Renal ultrasound pending * Appreciate nephrology recommendations * Has associated anemia of chronic disease Current Visit: Yes Status: Acute Code(s): N18.3 - CHRONIC KIDNEY DISEASE, STAGE 3 (MODERATE) SNOMED Code(s): 832974982 (4) Type 2 diabetes mellitus with hyperglycemia Narrative/Plan: * A1c 10.3 indicating poor control * Patient mildly hypoglycemic this morning after being nothing by mouth for procedure given an amp of D50 and prandial insulin held * Continue with basal insulin, resume prandial insulin when eating and continue correctional scale coverage Current Visit: Yes Status: Acute Code(s): E11.65 - TYPE 2 DIABETES MELLITUS WITH HYPERGLYCEMIA SNOMED Code(s): 960847648116225
[2018-02-01 11:15] LABS: Glucose,Whole Blood 144 mg/dL (75-99)
[2018-02-01] MEDS ORDERED: cloNIDine HCL 0.2 MG TAB PO STA (12:25)
[2018-02-01 12:57] LABS: Glucose,Whole Blood 100 mg/dL (75-99)
--- NOTE | 2018-02-01 14:34 | US ---
EXAMINATION TYPE: US renal artery duplex complete DATE OF EXAM: 02/01/2018 COMPARISON: NONE CLINICAL HISTORY: 67-year-old male acute kidney injury on CKD . Hypertension; diabetic TECHNIQUE: Multiple sonographic images of the kidneys are obtained. Color Doppler and spectral wavefo rm analysis of the bilateral renal arteries and mid abdominal aorta. FINDINGS: Ectatic proximal abdominal aorta at 2.7 cm. Atelectatic changes are present within. - Mid abdominal aortic peak systolic velocity: 41.8 cm/s. MEASUREMENTS: RENAL SIZE: Rt Kidney: 11.2x 6.3 x 4.5cm without hydronephrosis. 2 tiny cortical cysts are present, largest measu ring 8 mm upper to mid pole. Lt Kidney: 10.8 x 5.2 x 4.7cm RESISTANCE INDEX Right: 0.74 Left: 0.79 (Pharmacy Operations Specialist notes: The left upper segmental artery was not seen. Only 2 segmental arteries assessed in the left kidney). RA VELOCITY ( < 180 cm/s) Right renal artery peak systolic velocity: 46.8 cm/s. Distal right renal artery acceleration time 0.04 seconds. Left renal artery peak systolic velocity: 42.0 cm/s. Distal left renal artery acceleration time: 0.03 seconds. RA/AO RATIO (< 3.5 ) Right: 1.1 Left: 1.0 Pharmacy Operations Specialist notes: No stenosis is seen in bilateral renal artery. Incidental findings of gallstones noted while assessing right kidney. IMPRESSION: 1. No hydronephrosis. 2. No sonographic/Doppler evidence for renal artery stenosis. 3. Incidental cholelithiasis.
[2018-02-01 17:42] LABS: Glucose,Whole Blood 144 mg/dL (75-99)
[2018-02-01] MEDS: ATORVASTATIN 10 MG TAB PO SCH (21:08)
[2018-02-01 21:22] LABS: Glucose,Whole Blood 183 mg/dL (75-99)
[2018-02-02] MEDS: MORPHINE ORAL SOLN 10 MG/5 ML CUP PO PRN (00:52)
[2018-02-02] MEDS: cloNIDine HCL 0.2 MG TAB PO PRN ×2 (02:38→10:44)
[2018-02-02] MEDS: SODIUM CHLORIDE 0.9% 1,000 ML IV SCH ×2 (03:58→10:43)
[2018-02-02 06:44] LABS: Glucose,Whole Blood 58 mg/dL (75-99)
[2018-02-02 07:08] LABS: Glucose,Whole Blood 87 mg/dL (75-99)
[2018-02-02] MEDS: INSULIN ASPART 100 UNIT/ML 1 ML 10 ML VIAL SQ SCH ×4 (08:44→21:28)
[2018-02-02] MEDS: VERAPAMIL 40 MG TAB PO SCH ×3 (08:48→21:28)
[2018-02-02] MEDS: NICOTINE 14MG/24HR PATCH TRANSDERM SCH (08:48)
[2018-02-02] MEDS: LISINOPRIL 20 MG TAB PO SCH (08:48)
[2018-02-02] MEDS: SPIRONOLACTONE 25 MG TAB PO SCH ×2 (08:48→21:28)
[2018-02-02] MEDS: TAMSULOSIN 0.4 MG CAP.ER.24H PO SCH (08:49)
[2018-02-02] MEDS: GABAPENTIN 100 MG CAP PO SCH ×3 (08:49→21:28)
[2018-02-02] MEDS: INSULIN DETEMIR 100 UNIT/ML 10 ML VIAL SQ SCH ×2 (08:49→21:29)
[2018-02-02] MEDS: HEPARIN SODIUM,PORCINE 5,000 UNIT/ML 1 ML VIAL SQ SCH ×3 (08:49→23:45)
[2018-02-02 08:58] LABS: Calcium 8.3 mg/dL (8.4-10.2); Potassium 4.6 mmol/L (3.5-5.1)
[2018-02-02] MEDS: ACETAMINOPHEN TAB 325 MG TAB PO PRN (08:59)
--- NOTE | 2018-02-02 09:23 | P.PN ---
Subjective Patient is seen in follow-up for acute kidney injury on chronic kidney disease. Patient appears to have chronic kidney disease stage IIIB with baseline creatinine fluctuating in the range of 1.5-2.5. Creatinine relatively stable at 3.04 today. Currently resting in bed. Blood pressures still elevated. No vomiting or diarrhea. Denies chest pain or shortness of breath. Oral intake is good. Vital signs are stable. General: The patient appeared well nourished and normally developed. HEENT: Head exam is unremarkable. Neck is without jugular venous distension. LUNGS: Lungs are clear to auscultation and percussion. Breath sounds decreased. HEART: Rate and Rhythm are regular. First and second heart sounds normal. No murmurs, rubs or gallops. ABDOMEN: Abdominal exam reveals normal bowel sounds. Non-tender and non- distended. No evidence of peritonitis. EXTREMITITES: Trace edema left lower extremity. Right BKA noted. Objective - Vital Signs Vital signs: Vital Signs Temp 97.7 F 02/02/18 06:00 Pulse 68 02/02/18 06:00 Resp 16 02/02/18 06:00 BP 168/93 02/02/18 06:00 Pulse Ox 97 02/02/18 06:00 Intake & Output 02/01/18 02/02/18 02/02/18 18:59 06:59 18:59 Intake Total 480 Output Total 1300 1400 Balance -820 -1400 Weight 71.5 kg Intake: Oral 480 Output: Urine 1300 1400 Other: Voiding Method Urinal Toilet Urinal # Bowel Movements 0 - Labs CBC & Chem 7: 01/31/18 07:28 02/02/18 08:07 Labs: Abnormal Lab Results - Last 24 Hours (Table) 02/01/18 02/01/18 02/01/18 Range/Units 10:46 11:11 12:31 Chloride (98-107) mmol/L BUN (9-20) mg/dL Creatinine (0.66-1.25) mg/dL POC Glucose (mg/dL) 61 L 144 H 100 H (75-99) mg/dL Calcium (8.4-10.2) mg/dL U Random Total Protein (<12) mg/dL 02/01/18 02/01/18 02/01/18 Range/Units 13:23 17:25 21:10 Chloride (98-107) mmol/L BUN (9-20) mg/dL Creatinine (0.66-1.25) mg/dL POC Glucose (mg/dL) 144 H 183 H (75-99) mg/dL Calcium (8.4-10.2) mg/dL U Random Total Protein 425 H (<12) mg/dL 02/02/18 02/02/18 Range/Units 06:35 08:07 Chloride 112 H (98-107) mmol/L BUN 42 H (9-20) mg/dL Creatinine 3.04 H (0.66-1.25) mg/dL POC Glucose (mg/dL) 58 L (75-99) mg/dL Calcium 8.3 L (8.4-10.2) mg/dL U Random Total Protein (<12) mg/dL Assessment and Plan Plan: Assessment: 1. Nonoliguric acute kidney injury mostly prerenal improved with IV hydration. Creatinine was 3.1 on admission and is relatively stable at 3.04 today. No evidence of hydronephrosis noted on renal ultrasound. 2. Insulin-dependent diabetes mellitus. 3. Chronic kidney disease stage IIIB with baseline creatinine in the range of 1.5-2.5. Patient has nephrotic range proteinuria which is likely from diabetic kidney disease but need to rule out GN. 4. Hypertension with chronic kidney disease. Blood pressures running high. 5. Anemia of chronic kidney disease. Hemoglobin at goal. Iron replete. Plan: Hep-Lock IV fluids. Follow-up serologies. Maintain current antihypertensives. If renal function worsens, will discontinue BETTY inhibitor. Continue to monitor renal function and urine output. Repeat electrolytes in the morning.
--- NOTE | 2018-02-02 10:32 | P.PN ---
Subjective Progress Note Date: 02/02/18 Patient in good spirits, radiation tech waiting to take the patient not to have his renal ultrasound done, patient denies any headaches chest pain confusion blurry vision focals weakness or slurred speech. No acute events overnight blood pressure elevated but improved since yesterday Objective - Vital Signs Vital signs: Vital Signs Temp 96.9 F L 02/02/18 10:00 Pulse 60 02/02/18 10:00 Resp 16 02/02/18 10:00 BP 154/98 02/02/18 10:00 Pulse Ox 98 02/02/18 10:00 Intake & Output 02/01/18 02/02/18 02/02/18 18:59 06:59 18:59 Intake Total 480 Output Total 1300 1400 Balance -820 -1400 Weight 71.5 kg Intake: Oral 480 Output: Urine 1300 1400 Other: Voiding Method Urinal Toilet Urinal # Bowel Movements 0 - Exam Constitutional: No acute distress, conversant, pleasant Eyes: Anicteric sclerae, moist conjunctiva, no lid-lag, PERRLA ENMT: NC/AT,Oropharynx clear, no erythema, exudates Neck:Supple, FROM, no masses, or JVD, No carotid bruits; No thyromegaly Lungs: Clear to auscultation, Clear to percussion, Normal respiratory effort, no accessory muscle use Cardiovascular: Heart regular in rate and rhythm, No murmurs, gallops, or rubs no peripheral edema Abdominal: Soft Nontender, nom distended, no guarding, no rebound or rigidity, Normoactive bowel sounds No hepatomegaly, No splenomegaly, No palpable mass No abdominal wall hernia noted Skin: Normal temperature, tone, texture, turgor, No induration No subcutaneous nodules, No rash, lesions, No ulcers Extremities:No digital cyanosis No clubbing, Pedal pulses intact and symmetrical Radial pulses intact and symmetrical Normal gait and station, No calf tenderness, right BKA Psychiatric: Alert and oriented to person, place and time, Appropriate affect Intact judgement Neuro: Muscles Strength 5/5 in all 4 extremities, Sensation to light touch grossly present throughout, Cranial nerves II-XII grossly intact. No focal sensory deficits - Labs CBC & Chem 7: 01/31/18 07:28 02/02/18 08:07 Labs: Abnormal Lab Results - Last 24 Hours (Table) 02/01/18 02/01/18 02/01/18 Range/Units 10:46 11:11 12:31 Chloride (98-107) mmol/L BUN (9-20) mg/dL Creatinine (0.66-1.25) mg/dL POC Glucose (mg/dL) 61 L 144 H 100 H (75-99) mg/dL Calcium (8.4-10.2) mg/dL U Random Total Protein (<12) mg/dL 02/01/18 02/01/18 02/01/18 Range/Units 13:23 17:25 21:10 Chloride (98-107) mmol/L BUN (9-20) mg/dL Creatinine (0.66-1.25) mg/dL POC Glucose (mg/dL) 144 H 183 H (75-99) mg/dL Calcium (8.4-10.2) mg/dL U Random Total Protein 425 H (<12) mg/dL 02/02/18 02/02/18 Range/Units 06:35 08:07 Chloride 112 H (98-107) mmol/L BUN 42 H (9-20) mg/dL Creatinine 3.04 H (0.66-1.25) mg/dL POC Glucose (mg/dL) 58 L (75-99) mg/dL Calcium 8.3 L (8.4-10.2) mg/dL U Random Total Protein (<12) mg/dL Assessment and Plan (1) GOKUL (acute kidney injury) Narrative/Plan: * Superimposed on CKD stage 3 with a creatinine relatively stable at 3.04 today * Likely nonoliguric improving with hydration * Renal ultrasound negative for renal artery stenosis, urinalysis showing proteinuria * Nephrotic range proteinuria likely from diabetic kidney disease but will need to rule out GN Current Visit: Yes Status: Acute Code(s): N17.9 - ACUTE KIDNEY FAILURE, UNSPECIFIED SNOMED Code(s): 61503623 (2) Accelerated hypertension Narrative/Plan: * Blood pressure elevated this morning but are much improved from yesterday we' ll recheck plan to stop IV fluids and if still elevated later today we'll initiate hydralazine * Continue current regimen for now with lisinopril 20 mg daily, verapamil 120mg TID continue Spirinolactone to 50mg BID * Echocardiogram indicating normal ejection fraction Current Visit: Yes Status: Acute Code(s): I10 - ESSENTIAL (PRIMARY) HYPERTENSION SNOMED Code(s): 82653588 (3) Chronic kidney disease, stage 3 (moderate) Narrative/Plan: * Nephrotic range proteinuria likely from diabetic kidney disease but will need to rule out GN * Appreciate nephrology recommendations * Has associated anemia of chronic disease Current Visit: Yes Status: Acute Code(s): N18.3 - CHRONIC KIDNEY DISEASE, STAGE 3 (MODERATE) SNOMED Code(s): 231996895 (4) Type 2 diabetes mellitus with hyperglycemia Narrative/Plan: * A1c 10.3 indicating poor control * Continue with basal insulin, resume prandial insulin when eating and continue correctional scale coverage Current Visit: Yes Status: Acute Code(s): E11.65 - TYPE 2 DIABETES MELLITUS WITH HYPERGLYCEMIA SNOMED Code(s): 605851323633115
[2018-02-02 11:48] LABS: Glucose,Whole Blood 147 mg/dL (75-99)
[2018-02-02 16:58] LABS: Glucose,Whole Blood 137 mg/dL (75-99)
[2018-02-02 20:23] LABS: Glucose,Whole Blood 72 mg/dL (75-99)
[2018-02-02 20:52] LABS: Glucose,Whole Blood 101 mg/dL (75-99)
[2018-02-02] MEDS: ATORVASTATIN 10 MG TAB PO SCH (21:28)
[2018-02-03 07:43] LABS: Glucose,Whole Blood 170 mg/dL (75-99)
[2018-02-03 08:03] LABS: Calcium 8.2 mg/dL (8.4-10.2); Potassium 5.1 mmol/L (3.5-5.1)
[2018-02-03] MEDS: INSULIN DETEMIR 100 UNIT/ML 10 ML VIAL SQ SCH ×2 (08:28→21:52)
[2018-02-03] MEDS: INSULIN ASPART 100 UNIT/ML 1 ML 10 ML VIAL SQ SCH ×4 (08:28→21:52)
[2018-02-03] MEDS: GABAPENTIN 100 MG CAP PO SCH ×3 (08:29→21:53)
[2018-02-03] MEDS: HEPARIN SODIUM,PORCINE 5,000 UNIT/ML 1 ML VIAL SQ SCH ×3 (08:29→23:44)
[2018-02-03] MEDS: VERAPAMIL 40 MG TAB PO SCH ×3 (08:29→21:52)
[2018-02-03] MEDS: LISINOPRIL 20 MG TAB PO SCH (08:30)
[2018-02-03] MEDS: NICOTINE 14MG/24HR PATCH TRANSDERM SCH (08:30)
[2018-02-03] MEDS: SPIRONOLACTONE 25 MG TAB PO SCH ×2 (08:30→21:52)
[2018-02-03] MEDS: TAMSULOSIN 0.4 MG CAP.ER.24H PO SCH (08:30)
--- NOTE | 2018-02-03 09:29 | P.PN ---
Subjective Patient is seen in follow-up for acute kidney injury on chronic kidney disease. Patient appears to have chronic kidney disease stage IIIB with baseline creatinine fluctuating in the range of 1.5-2.5. Creatinine a little worse at 3.15 today. Currently resting in bed. Blood pressure is well controlled now. No vomiting or diarrhea. Denies chest pain or shortness of breath. Oral intake is good. Vital signs are stable. General: The patient appeared well nourished and normally developed. HEENT: Head exam is unremarkable. Neck is without jugular venous distension. LUNGS: Lungs are clear to auscultation and percussion. Breath sounds decreased. HEART: Rate and Rhythm are regular. First and second heart sounds normal. No murmurs, rubs or gallops. ABDOMEN: Abdominal exam reveals normal bowel sounds. Non-tender and non- distended. No evidence of peritonitis. EXTREMITITES: Trace edema left lower extremity. Right BKA noted. Objective - Vital Signs Vital signs: Vital Signs Temp 97.3 F L 02/03/18 05:37 Pulse 66 02/03/18 05:37 Resp 14 02/03/18 05:37 BP 143/86 02/03/18 05:37 Pulse Ox 95 02/03/18 05:37 Intake & Output 02/02/18 02/03/18 02/03/18 18:59 06:59 18:59 Intake Total 1810 Balance 1810 Weight 71.5 kg 70.5 kg Intake: Oral 1810 Other: Voiding Method Urinal Urinal # Voids 4 2 - Labs CBC & Chem 7: 01/31/18 07:28 02/03/18 07:08 Labs: Abnormal Lab Results - Last 24 Hours (Table) 02/02/18 02/02/18 02/02/18 Range/Units 11:34 16:57 20:19 Chloride (98-107) mmol/L Carbon Dioxide (22-30) mmol/L BUN (9-20) mg/dL Creatinine (0.66-1.25) mg/dL Glucose (74-99) mg/dL POC Glucose (mg/dL) 147 H 137 H 72 L (75-99) mg/dL Calcium (8.4-10.2) mg/dL 02/02/18 02/03/18 02/03/18 Range/Units 20:51 07:08 07:40 Chloride 112 H (98-107) mmol/L Carbon Dioxide 17 L (22-30) mmol/L BUN 48 H (9-20) mg/dL Creatinine 3.15 H (0.66-1.25) mg/dL Glucose 169 H (74-99) mg/dL POC Glucose (mg/dL) 101 H 170 H (75-99) mg/dL Calcium 8.2 L (8.4-10.2) mg/dL Assessment and Plan Plan: Assessment: 1. Nonoliguric acute kidney injury mostly prerenal improved with IV hydration. Creatinine a little worse today at 3.15. No evidence of hydronephrosis noted on renal ultrasound. 2. Insulin-dependent diabetes mellitus. 3. Chronic kidney disease stage IIIB with baseline creatinine in the range of 1.5-2.5. Patient has nephrotic range proteinuria which is likely from diabetic kidney disease but need to rule out GN. 4. Hypertension with chronic kidney disease. Better controlled. 5. Anemia of chronic kidney disease. Hemoglobin at goal. Iron replete. 6. Metabolic acidosis secondary to chronic kidney disease. Plan: Hep-Lock IV fluids. Follow-up serologies. Pending serology results, may require kidney biopsy which can be done as outpatient. Monitor potassium level. I will decrease Aldactone to 50 mg once daily and add Lasix 20 mg daily as well. Add oral sodium bicarbonate.
[2018-02-03] MEDS: SODIUM BICARBONATE TAB 650 MG TAB PO SCH ×2 (10:11→21:53)
[2018-02-03] MEDS: FUROSEMIDE 20 MG TAB PO SCH (10:11)
[2018-02-03] MEDS: cloNIDine HCL 0.2 MG TAB PO PRN (10:20)
--- NOTE | 2018-02-03 10:51 | P.PN ---
Subjective Progress Note Date: 02/03/18 Patient in good spirits today, reports history of hep C inquiring about potential cure, patient redirected to follow up with his PCP for referral to GI/ hepatology. Blood pressure is much more improved today. Creatinine trending up to 3.15, otherwise no acute events overnight Objective - Vital Signs Vital signs: Vital Signs Temp 97.5 F L 02/03/18 09:54 Pulse 75 02/03/18 09:54 Resp 16 02/03/18 09:54 BP 174/104 02/03/18 09:54 Pulse Ox 96 02/03/18 09:54 Intake & Output 02/02/18 02/03/18 02/03/18 18:59 06:59 18:59 Intake Total 1810 Balance 1810 Weight 71.5 kg 70.5 kg Intake: Oral 1809 Other: Voiding Method Urinal Urinal Urinal # Voids 4 2 - Exam Constitutional: No acute distress, conversant, pleasant Eyes: Anicteric sclerae, moist conjunctiva, no lid-lag, PERRLA ENMT: NC/AT,Oropharynx clear, no erythema, exudates Neck:Supple, FROM, no masses, or JVD, No carotid bruits; No thyromegaly Lungs: Clear to auscultation, Clear to percussion, Normal respiratory effort, no accessory muscle use Cardiovascular: Heart regular in rate and rhythm, No murmurs, gallops, or rubs no peripheral edema Abdominal: Soft Nontender, nom distended, no guarding, no rebound or rigidity, Normoactive bowel sounds No hepatomegaly, No splenomegaly, No palpable mass No abdominal wall hernia noted Skin: Normal temperature, tone, texture, turgor, No induration No subcutaneous nodules, No rash, lesions, No ulcers Extremities:No digital cyanosis No clubbing, Pedal pulses intact and symmetrical Radial pulses intact and symmetrical Normal gait and station, No calf tenderness, right BKA Psychiatric: Alert and oriented to person, place and time, Appropriate affect Intact judgement Neuro: Muscles Strength 5/5 in all 4 extremities, Sensation to light touch grossly present throughout, Cranial nerves II-XII grossly intact. No focal sensory deficits - Labs CBC & Chem 7: 01/31/18 07:28 02/03/18 07:08 Labs: Abnormal Lab Results - Last 24 Hours (Table) 02/02/18 02/02/18 02/02/18 Range/Units 11:34 16:57 20:19 Chloride (98-107) mmol/L Carbon Dioxide (22-30) mmol/L BUN (9-20) mg/dL Creatinine (0.66-1.25) mg/dL Glucose (74-99) mg/dL POC Glucose (mg/dL) 147 H 137 H 72 L (75-99) mg/dL Calcium (8.4-10.2) mg/dL 02/02/18 02/03/18 02/03/18 Range/Units 20:51 07:08 07:40 Chloride 112 H (98-107) mmol/L Carbon Dioxide 17 L (22-30) mmol/L BUN 48 H (9-20) mg/dL Creatinine 3.15 H (0.66-1.25) mg/dL Glucose 169 H (74-99) mg/dL POC Glucose (mg/dL) 101 H 170 H (75-99) mg/dL Calcium 8.2 L (8.4-10.2) mg/dL Assessment and Plan (1) GOKUL (acute kidney injury) Narrative/Plan: * Superimposed on CKD stage 3 with a creatinine relatively stable at 3.04 today * Likely nonoliguric improving with hydration * Renal ultrasound negative for renal artery stenosis, urinalysis showing proteinuria * Nephrotic range proteinuria likely from diabetic kidney disease but will need to rule out GN Current Visit: Yes Status: Acute Code(s): N17.9 - ACUTE KIDNEY FAILURE, UNSPECIFIED SNOMED Code(s): 52630273 (2) Accelerated hypertension Narrative/Plan: * Blood pressure elevated this morning but are much improved from yesterday * Continue current regimen for now with Lasix 20 mg by mouth daily added to regimen, continue with lisinopril 20 mg daily, verapamil 120mg TID continue Spirinolactone 50mg PO daily and follow up with serum potassium tomorrow * Echocardiogram indicating normal ejection fraction Current Visit: Yes Status: Acute Code(s): I10 - ESSENTIAL (PRIMARY) HYPERTENSION SNOMED Code(s): 44628206 (3) Chronic kidney disease, stage 3 (moderate) Narrative/Plan: * Nephrotic range proteinuria likely from diabetic kidney disease but will need to rule out GN * Appreciate nephrology recommendations * Has associated anemia of chronic disease Current Visit: Yes Status: Acute Code(s): N18.3 - CHRONIC KIDNEY DISEASE, STAGE 3 (MODERATE) SNOMED Code(s): 067650938 (4) Type 2 diabetes mellitus with hyperglycemia Narrative/Plan: * A1c 10.3 indicating poor control * Continue with basal insulin, resume prandial insulin when eating and continue correctional scale coverage Current Visit: Yes Status: Acute Code(s): E11.65 - TYPE 2 DIABETES MELLITUS WITH HYPERGLYCEMIA SNOMED Code(s): 486571807066724 Plan: Disposition * Discussed ongoing plan of care with the patient needing to follow-up with Dr. Ramirez for possible kidney biopsy * We'll likely be discharged tomorrow
[2018-02-03 11:59] LABS: Glucose,Whole Blood 327 mg/dL (75-99)
[2018-02-03 16:34] LABS: Glucose,Whole Blood 67 mg/dL (75-99)
[2018-02-03 16:34] LABS: Glucose,Whole Blood 104 mg/dL (75-99)
[2018-02-03 16:59] LABS: Glucose,Whole Blood 126 mg/dL (75-99)
[2018-02-03 21:40] LABS: Glucose,Whole Blood 185 mg/dL (75-99)
[2018-02-03] MEDS: ATORVASTATIN 10 MG TAB PO SCH (21:52)
[2018-02-04] MEDS: INSULIN ASPART 100 UNIT/ML 1 ML 10 ML VIAL SQ SCH ×4 (08:33→20:23)
[2018-02-04 08:35] LABS: Glucose,Whole Blood 129 mg/dL (75-99)
[2018-02-04] MEDS: INSULIN DETEMIR 100 UNIT/ML 10 ML VIAL SQ SCH ×2 (08:36→21:22)
[2018-02-04] MEDS: GABAPENTIN 100 MG CAP PO SCH ×3 (08:36→21:21)
[2018-02-04] MEDS: HEPARIN SODIUM,PORCINE 5,000 UNIT/ML 1 ML VIAL SQ SCH ×3 (08:36→23:42)
[2018-02-04] MEDS: SODIUM BICARBONATE TAB 650 MG TAB PO SCH ×2 (08:36→21:21)
[2018-02-04] MEDS: TAMSULOSIN 0.4 MG CAP.ER.24H PO SCH (08:36)
[2018-02-04] MEDS: NICOTINE 14MG/24HR PATCH TRANSDERM SCH (08:36)
[2018-02-04] MEDS: SPIRONOLACTONE 25 MG TAB PO SCH (08:38)
[2018-02-04] MEDS: VERAPAMIL 40 MG TAB PO SCH ×3 (08:38→21:21)
[2018-02-04] MEDS: FUROSEMIDE 20 MG TAB PO SCH (08:38)
[2018-02-04] MEDS: LISINOPRIL 20 MG TAB PO SCH (08:38)
[2018-02-04 10:15] LABS: Calcium 8.4 mg/dL (8.4-10.2); Magnesium 1.7 mg/dL (1.6-2.3); Potassium 4.9 mmol/L (3.5-5.1)
[2018-02-04 12:45] LABS: Hepatitis B Core IgM Non-Reactive (Non-Reactive)
[2018-02-04 12:59] LABS: Glucose,Whole Blood 176 mg/dL (75-99)
[2018-02-04 12:59] LABS: Protein, Total 5.5 g/dL (6.2-8.2)
[2018-02-04 14:18] LABS: Albumin 2.62 g/dL (3.80-4.90); Gamma Globulin 0.73 g/dL (0.70-1.50)
[2018-02-04 15:01] LABS: C-ANCA <1:20 Titer (<1:20); P-ANCA <1:20 Titer (<1:20)
--- NOTE | 2018-02-04 16:12 | PN ---
PROGRESS NOTE Patient is seen for followup for acute kidney injury. Creatinine was about 3.1 on initial admission. It has remained about the same. Previous creatinine was about 2.2 in July and November of 2017. The patient was admitted to the hospital with leg swelling on the left leg. He denies any significant shortness of breath. The patient's blood pressure was significantly elevated. Currently, he is maintained on low-dose oral diuretics in the form of Lasix 20 mg p.o. daily. His blood pressure has been staying up with systolic about 180-200. It has been as low as 138-142 mmHg. The patient is maintained on Zestril at 20 mg daily. I do not see any renal ultrasound to rule out hydronephrosis. However, patient did have a renal artery duplex on 02/01 which did not show any evidence of hydronephrosis and there was no suggestion of renal artery stenosis. PHYSICAL EXAMINATION: On examination today, patient states he feels about the same. Blood pressure was elevated at 171/95, heart rate 95 per minute. He is afebrile. Examination of the heart: S1, S2. Examination of the lungs: Bilateral breath sounds are heard. Abdomen is soft, nontender. Examination lower extremities shows no significant edema. [employer] exam is grossly intact. Patient is moving all 4 extremities. He has a right BKA. There is edema noted on his left lower extremity about 2+. LABS: Show sodium 137, potassium 4.9, chloride 109, BUN 48, serum creatinine 3.19, magnesium 1.7. ASSESSMENT: 1. Acute kidney injury with all serologies currently negative. The patient is nonoliguric. Serum creatinine staying at about 3-3.1 mg/dL. The patient is maintained on BETTY inhibitors, which I will continue given his uncontrolled hypertension. He is not on any other nephrotoxic agents at this time. 2. Uncontrolled hypertension. The patient does have evidence of volume overload. I will increase his Lasix. Continue with Aldactone. He is maintained on a good dose of calcium channel blockers as well. 3. Chronic kidney disease with previous creatinine about 2 mg/dL as of July of 2017. The patient will benefit from a kidney biopsy. However, this can be done as outpatient, specially when his blood pressure is better controlled. PLAN: Increase Lasix. Continue with BETTY inhibitors. Repeat labs in a.m. The patient will need a kidney biopsy which can be done as outpatient. MMODL / IJN: [id number] /
[2018-02-04] MEDS ORDERED: BISACODYL 10 MG SUPP RECTAL STA (16:28)
--- NOTE | 2018-02-04 16:56 | P.PN ---
Subjective Progress Note Date: 02/04/18 Patient seen and examined at the bedside. Patient notes that he is doing well and was in good spirits. He endorsed a history of constipation with last bowel movement 3-4 days ago. He further endorsed slight improvement in left foot pain and left lower extremity edema. He otherwise denied any active complaints. Objective - Vital Signs Vital signs: Vital Signs Temp 99.6 F 02/04/18 07:00 Pulse 95 02/04/18 07:00 Resp 16 02/04/18 07:00 BP 171/95 02/04/18 11:00 Pulse Ox 97 02/04/18 07:00 Intake & Output 02/03/18 02/04/18 02/04/18 18:59 06:59 18:59 Intake Total 1200 Output Total 650 800 Balance 550 -800 Weight 79.5 kg Intake: Oral 1200 Output: Urine 650 800 Other: Voiding Method Urinal Urinal # Voids 3 1 3 # Bowel Movements 0 - Exam General: awake, alert, in NAD, appears of stated age Derm: warm, dry Head: atraumatic, normocephalic, symmetric Eyes: EOMI, no lid lag, anicteric sclera Mouth: mucus membranes moist Cardiovascular: S1S2 reg, no murmur, rubs, or gallops Lungs: CTA bilateral, no rhonchi, no rales, no accessory muscle use Abdominal: soft, nontender to palpation, no guarding or rigidity, no appreciable organomegaly Ext: R BKA, LLE 1+ pitting edema, no rashes or induration noted, no contractures Neuro: CN II-XII grossly intact, no focal neuro deficits Psych: AAOx3, appropriate affect - Labs CBC & Chem 7: 01/31/18 07:28 02/04/18 09:40 Labs: Abnormal Lab Results - Last 24 Hours (Table) 02/02/18 02/03/18 02/03/18 Range/Units 08:07 15:48 16:06 Chloride (98-107) mmol/L Carbon Dioxide (22-30) mmol/L BUN (9-20) mg/dL Creatinine (0.66-1.25) mg/dL Glucose (74-99) mg/dL POC Glucose (mg/dL) 67 L 104 H (75-99) mg/dL Total Protein (PEP) 5.5 L (6.2-8.2) g/dL Albumin (PEP) 2.62 L (3.80-4.90) g/dL [id number] 1.12 H (0.60-1.00) g/dL Hep C IgG Ab Reactive H (Non-Reactive) 02/03/18 02/03/18 02/04/18 Range/Units 16:57 21:36 08:33 Chloride (98-107) mmol/L Carbon Dioxide (22-30) mmol/L BUN (9-20) mg/dL Creatinine (0.66-1.25) mg/dL Glucose (74-99) mg/dL POC Glucose (mg/dL) 126 H 185 H 129 H (75-99) mg/dL Total Protein (PEP) (6.2-8.2) g/dL Albumin (PEP) (3.80-4.90) g/dL [id number] (0.60-1.00) g/dL Hep C IgG Ab (Non-Reactive) 02/04/18 02/04/18 Range/Units 09:40 12:50 Chloride 109 H (98-107) mmol/L Carbon Dioxide 19 L (22-30) mmol/L BUN 48 H (9-20) mg/dL Creatinine 3.19 H (0.66-1.25) mg/dL Glucose 200 H (74-99) mg/dL POC Glucose (mg/dL) 176 H (75-99) mg/dL Total Protein (PEP) (6.2-8.2) g/dL Albumin (PEP) (3.80-4.90) g/dL [id number] (0.60-1.00) g/dL Hep C IgG Ab (Non-Reactive) Assessment and Plan Plan: GOKUL on CKD stage III, unknown etiology - Nephrology follow-up appreciated - Nephrotic range proteinuria but will need to rule out GN - Serum creatinine relatively stable from 3.15-3.19 - Complete serologies pending. Hepatitis C IgG antibody positive, will check HCV viral load. - Continue with lisinopril 20 mg qd, Lasix 40 IV q12, and Aldactone 50 mg qd - C/w Sodium bicarb 650 mg BID Hypertension - Uncontrolled on Lasix 40 mg IV q12h, Lisinopril 20 mg po qd, Aldactone 50 mg po qd, and Verapamil 120 mg po qd. - Will await Nephro recs and adjust accordingly. Constipation - Will give Bisacodyl suppository with Colace PO bid prn BPH - C/w Flomax Chronic anemia - Iron studies consistent w/ chronic disease anemia LLE edema, likely secondary to diastolic CHF - Lower extremity duplex negative for DVT - Echocardiogram showing severe concentric LVH - Continue with Lasix L foot pain - Likely secondary to overuse. The patient is homeless and walking around with bare feet often throughout the day Poorly controlled DM w/ hyperglycemia - A1c 10.3 - Continue with Levemir 20 units twice a day Time with Patient: Greater than 30
[2018-02-04 17:12] LABS: Glucose,Whole Blood 146 mg/dL (75-99)
[2018-02-04] MEDS: DOCUSATE 100 MG CAP PO PRN (18:38)
[2018-02-04 20:08] LABS: Glucose,Whole Blood 97 mg/dL (75-99)
[2018-02-04] MEDS: ATORVASTATIN 10 MG TAB PO SCH (21:21)
[2018-02-04] MEDS: FUROSEMIDE 10 MG/ML 4 ML VIAL IV SCH (21:22)
[2018-02-05] MEDS: VERAPAMIL 40 MG TAB PO SCH ×3 (06:28→21:23)
[2018-02-05] MEDS: SPIRONOLACTONE 25 MG TAB PO SCH (06:29)
[2018-02-05] MEDS: LISINOPRIL 20 MG TAB PO SCH (06:29)
[2018-02-05 07:56] LABS: Glucose,Whole Blood 96 mg/dL (75-99)
[2018-02-05 07:56] LABS: Glucose,Whole Blood 54 mg/dL (75-99)
[2018-02-05] MEDS: INSULIN ASPART 100 UNIT/ML 1 ML 10 ML VIAL SQ SCH ×4 (08:15→21:25)
[2018-02-05] MEDS: INSULIN DETEMIR 100 UNIT/ML 10 ML VIAL SQ SCH ×2 (08:21→22:31)
[2018-02-05] MEDS: GABAPENTIN 100 MG CAP PO SCH ×3 (08:21→21:23)
[2018-02-05] MEDS: HEPARIN SODIUM,PORCINE 5,000 UNIT/ML 1 ML VIAL SQ SCH ×2 (08:21→15:05)
[2018-02-05] MEDS: SODIUM BICARBONATE TAB 650 MG TAB PO SCH (08:21)
[2018-02-05] MEDS: TAMSULOSIN 0.4 MG CAP.ER.24H PO SCH (08:21)
[2018-02-05] MEDS: FUROSEMIDE 10 MG/ML 4 ML VIAL IV SCH ×2 (08:21→21:22)
[2018-02-05] MEDS: NICOTINE 14MG/24HR PATCH TRANSDERM SCH (08:21)
[2018-02-05] MEDS: MORPHINE ORAL SOLN 10 MG/5 ML CUP PO PRN (08:22)
[2018-02-05 10:59] LABS: Basophils % (A) 0 %; Eosinophils # (A) 0.1 k/uL (0-0.7); Eosinophils % (A) 1 %; HCT 30.1 % (39.0-53.0); HGB 9.8 gm/dL (13.0-17.5); Lymphocytes % (A) 20 %; MCH 29.6 pg (25.0-35.0); MCHC 32.6 g/dL (31.0-37.0); MCV 90.9 fL (80.0-100.0); Mean Platelet Volume 7.8; Monocytes # (A) 0.3 k/uL (0-1.0); Monocytes % (A) 7 %; Neutrophils # (A) 3.4 k/uL (1.3-7.7); Neutrophils % (A) 70 %; Platelet Count 190 k/uL (150-450); RBC 3.32 m/uL (4.30-5.90); WBC 4.8 k/uL (3.8-10.6)
[2018-02-05 11:27] LABS: Calcium 8.7 mg/dL (8.4-10.2); Magnesium 1.8 mg/dL (1.6-2.3); Phosphorus 4.7 mg/dL (2.5-4.5); Potassium 4.6 mmol/L (3.5-5.1)
[2018-02-05 11:43] LABS: Glucose,Whole Blood 124 mg/dL (75-99)
[2018-02-05 16:30] LABS: Hepatitis A Antibody IgM Non-Reactive (Non-Reactive)
[2018-02-05] MEDS: ACETAMINOPHEN TAB 325 MG TAB PO PRN (17:11)
--- NOTE | 2018-02-05 17:30 | P.CONS ---
History of Present Illness - Reason for Consult Consult date: 02/05/18 Hepatitis C and B Requesting physician: Amanda Otto - Chief Complaint Pain in his foot - History of Present Illness The patient is a pleasant 67-year-old male with a medical history significant for uncontrolled diabetes mellitus, uncontrolled hypertension, amputation of the right leg (BKA), anemia of chronic disease, and chronic kidney disease who presents to the hospital with complaints of pain and swelling in his left foot. The patient had Dopplers performed which were negative for a DVT. Currently in the hospital he is receiving treatment for uncontrolled hypertension, uncontrolled diabetes mellitus, and acute kidney injury on CKD stage III. The patient has denied any nausea, vomiting, hematemesis, coffee-ground emesis, hematochezia, melena or change in his bowel habits. Iron studies drawn consistent with anemia of chronic disease. Today the patient had reported to the primary team that he has not had a bowel movement in the past few days and was started on a bowel regimen. The patient reports a known history of hepatitis C believed to been contracted from IV drug use. He reports that he received treatment with interferon therapy in the at the [facility]. He reports a prolonged course of treatment for which she was compliant but believes that he was not cured of the hepatitis C after the treatment concluded. He also believes he had a liver biopsy at that time but is unsure of the results. When asked if the patient knew that he also had serologic evidence of hepatitis B he reports that he does remember being told that he had "alphabet soup of hepatitis". He reports that he no longer uses IV drugs or recreational drugs. He does not believe he has ever been treated for hepatitis B. He denies any prior episodes of ascites or requiring paracentesis. He denies any episodes of variceal bleed or encephalopathy. Currently he is lying in bed with no acute complaints except that his left foot is still sore. Past endoscopic history: He reports a remote history over 15 years ago of a colonoscopy at which time polyps may have been removed. Review of Systems REVIEW OF SYSTEMS: CARDIOPULMONARY: Denies chest pain or shortness of breath. GENITOURINARY: No dysuria or hematuria. MUSCULOSKELETAL: No weakness reported. SKIN: Denies any new rashes or lesions, jaundice or pallor. PSYCHIATRIC: Denies any depression or anxiety. NEUROLOGY: Denies headache, denies any new focal deficits. EARS: No tinnitus, discharge or new hearing loss. NOSE: No discharge or congestion. EYES: No pain in eyes or change in vision. CONSTITUTIONAL: No recent weight loss. No fever, chills, night sweats. Past Medical History Past Medical History: COPD, Diabetes Mellitus, Deep Vein Thrombosis (DVT), Eye Disorder, GERD/Reflux, Hyperlipidemia, Hypertension, Liver Disease, Pneumonia, Prostate Disorder, Renal Disease Additional Past Medical History / Comment(s): Other HX: IDDM-poorly controlled with admissions for DKA and metabolic encephalopathies, severe sepsis with R foot gangrene with metabolic encephalopathy resulting in R BKA 07/2014, chronic renal failure, electolyte abnormalities, DJD, NEUROPATHY bilateral legs and feet , pinch nerves on right neck and left hip, herniated disc causing sciatic pain, chronic back pain, falls, fracture lower left ribs, DVT leg, Hepatits c- was going to [place] for interferon yrs ago that did not work, concussions, gout , diabetic retinopathy, IBS, BPH, gonorrhea. History of Any Multi-Drug Resistant Organisms: MRSA Year Discovered:: 07/02/17 MDRO Source:: toe Past Surgical History: Orthopedic Surgery Additional Past Surgical History / Comment(s): 07/27/14 R BKA, liver bx in [place], RT ORBIT reconstruction, fracture of left hip 03/20/2014 with surgery, LT ARM ORIF, SAM KNEES scoped, LT FINGER, colonoscopy, EGD, L hand sx, R inguinal hernia surgery x2, circumcism. Past Anesthesia/Blood Transfusion Reactions: No Reported Reaction Past Psychological History: Anxiety, Depression Additional Psychological History / Comment(s): patient live at [address] [place] [id number] Smoking Status: Current every day smoker Past Alcohol Use History: Occasional Additional Past Alcohol Use History / Comment(s): Old record indicates pt started smoking in 1968 Past Drug Use History: None Reported Additional Drug Use History / Comment(s): Past history of substance abuse. Old medical records indicate cocaine abuse and drug screens in past positive for cocaine and opiates. - Past Family History Father Additional Family Medical History / Comment(s): ulcers Mother Family Medical History: Diabetes Mellitus Additional Family Medical History / Comment(s): Mother in her 80's. Sister(s) Family Medical History: Diabetes Mellitus Medications and Allergies Home Medications Medication Instructions Recorded Confirmed Type Gabapentin 800 mg PO TID #90 tab 05/25/16 01/30/18 Rx Simvastatin [Zocor] 20 mg PO HS #30 tab 05/25/16 01/30/18 Rx Tamsulosin [Flomax] 0.4 mg PO DAILY #30 cap 07/05/17 01/30/18 Rx Insulin Glargine [Lantus] 20 unit SQ BID 01/30/18 01/30/18 History Insulin Glulisine [Apidra Solostar] 8 - 10 unit SQ AC-TID 01/30/18 01/30/18 History glipiZIDE [Glucotrol] 5 mg PO TID 01/30/18 01/30/18 History Lisinopril [Zestril] 20 mg PO DAILY #30 tab 02/03/18 Rx Spironolactone [Aldactone] 50 mg PO BID #60 tab 02/03/18 Rx Verapamil [Isoptin] 120 mg PO TID #90 tab 02/03/18 Rx Allergies Allergy/AdvReac Type Severity Reaction Status Date / Time No Known Allergies Allergy Verified 01/30/18 17:24 Physical Exam Vitals: Vital Signs Temp Pulse Resp BP BP Pulse Ox 02/05/18 16:22 76 02/05/18 16:11 76 18 126/79 96 02/05/18 14:04 98.8 F 83 16 171/90 97 02/05/18 10:05 81 18 150/94 93 L 02/05/18 07:15 146/86 02/05/18 06:15 98.7 F 89 20 198/114 98 02/05/18 02:00 99.5 F 83 20 160/98 93 L 02/04/18 22:00 85 16 163/96 96 02/04/18 18:50 90 18 161/103 95 Intake and Output 02/05/18 02/05/18 02/05/18 06:59 14:59 22:59 Intake Total 100 600 Balance 100 600 Intake: Oral 100 600 Other: # Voids 2 2 Weight 73 kg Results CBC & Chem 7: 02/05/18 10:26 02/05/18 10:26 Labs: Abnormal Lab Results - Last 24 Hours (Table) 02/02/18 02/05/18 02/05/18 Range/Units 08:07 07:11 10:26 RBC 3.32 L (4.30-5.90) m/uL Hgb 9.8 L (13.0-17.5) gm/dL Hct 30.1 L (39.0-53.0) % Chloride (98-107) mmol/L BUN (9-20) mg/dL Creatinine (0.66-1.25) mg/dL POC Glucose (mg/dL) 54 L (75-99) mg/dL Phosphorus (2.5-4.5) mg/dL Hep Bs Antigen Reactive H (Non-Reactive) 02/05/18 02/05/18 Range/Units 10:26 11:41 RBC (4.30-5.90) m/uL Hgb (13.0-17.5) gm/dL Hct (39.0-53.0) % Chloride 108 H (98-107) mmol/L BUN 53 H (9-20) mg/dL Creatinine 3.34 H (0.66-1.25) mg/dL POC Glucose (mg/dL) 124 H (75-99) mg/dL Phosphorus 4.7 H (2.5-4.5) mg/dL Hep Bs Antigen (Non-Reactive) Assessment and Plan (1) Hepatitis B surface antigen positive Narrative/Plan: Hepatitis B surface antigen positive, suggestive of chronic hepatitis. The patient's liver enzymes are all within the normal range. We'll await levels of viral load and the e antigen and antibody testing to determine the necessity for treatment. Current Visit: Yes Status: Acute Code(s): R76.8 - OTHER SPECIFIED ABNORMAL IMMUNOLOGICAL FINDINGS IN SERUM SNOMED Code(s): 693827530 (2) Hepatitis C antibody positive in blood Narrative/Plan: Per the patient he is treatment experienced with interferon in the for which she believes the disease was not cured. We'll need to assess viral load and genotype. Current Visit: Yes Status: Acute Code(s): R76.8 - OTHER SPECIFIED ABNORMAL IMMUNOLOGICAL FINDINGS IN SERUM SNOMED Code(s): 362237834 (3) Anemia of chronic disease Narrative/Plan: Iron studies consistent with anemia of chronic disease with patient denying any signs or symptoms of GI bleeding. Current Visit: Yes Status: Acute Code(s): D63.8 - ANEMIA IN OTHER CHRONIC DISEASES CLASSIFIED ELSEWHERE SNOMED Code(s): 562115303 Plan: Supportive care Continue treatment of other medical comorbidities Await further studies testing for activity of hepatitis B and C Given positive hepatitis B antigen/chronic hepatitis B patient will need screening for hepatocellular carcinoma. Ultrasound abdomen and AFP ordered. No laboratory evidence of cirrhosis or symptomatic/history of decompensated liver disease Patient will need to follow up in 2 weeks for discussion on treatment options Patient will need a screening colonoscopy in the outpatient setting Thank you for allowing us to participate in the care of this patient we will continue to follow.
[2018-02-05 17:37] LABS: Glucose,Whole Blood 145 mg/dL (75-99)
--- NOTE | 2018-02-05 18:29 | P.PN ---
Subjective Progress Note Date: 02/05/18 Patient seen and examined at the bedside. Patient notes that he is doing well and was in good spirits. The patient notes continued LLE swelling. He otherwise denied any active complaints. Objective - Vital Signs Vital signs: Vital Signs Temp 98.8 F 02/05/18 14:04 Pulse 76 02/05/18 16:22 Resp 18 02/05/18 16:11 BP 126/79 02/05/18 16:11 Pulse Ox 96 02/05/18 16:11 Intake & Output 02/04/18 02/05/18 02/05/18 18:59 06:59 18:59 Intake Total 100 1200 Balance 100 1200 Weight 73 kg Intake: Oral 100 1200 Other: # Voids 3 2 1 # Bowel Movements 0 - Exam General: awake, alert, in NAD, appears of stated age Derm: warm, dry Head: atraumatic, normocephalic, symmetric Eyes: EOMI, no lid lag, anicteric sclera Mouth: mucus membranes moist Cardiovascular: S1S2 reg, no murmur, rubs, or gallops Lungs: CTA bilateral, no rhonchi, no rales, no accessory muscle use Abdominal: soft, nontender to palpation, no guarding or rigidity, no appreciable organomegaly Ext: R BKA, LLE 1+ pitting edema, no rashes or induration noted, no contractures Neuro: CN II-XII grossly intact, no focal neuro deficits Psych: AAOx3, appropriate affect - Labs CBC & Chem 7: 02/05/18 10:26 02/05/18 10:26 Labs: Abnormal Lab Results - Last 24 Hours (Table) 02/02/18 02/05/18 02/05/18 Range/Units 08:07 07:11 10:26 RBC 3.32 L (4.30-5.90) m/uL Hgb 9.8 L (13.0-17.5) gm/dL Hct 30.1 L (39.0-53.0) % Chloride (98-107) mmol/L BUN (9-20) mg/dL Creatinine (0.66-1.25) mg/dL POC Glucose (mg/dL) 54 L (75-99) mg/dL Phosphorus (2.5-4.5) mg/dL Hep Bs Antigen Reactive H (Non-Reactive) 02/05/18 02/05/18 02/05/18 Range/Units 10:26 11:41 17:05 RBC (4.30-5.90) m/uL Hgb (13.0-17.5) gm/dL Hct (39.0-53.0) % Chloride 108 H (98-107) mmol/L BUN 53 H (9-20) mg/dL Creatinine 3.34 H (0.66-1.25) mg/dL POC Glucose (mg/dL) 124 H 145 H (75-99) mg/dL Phosphorus 4.7 H (2.5-4.5) mg/dL Hep Bs Antigen (Non-Reactive) Assessment and Plan Plan: GOKUL on CKD stage III, unknown etiology - Nephrology follow-up appreciated - Nephrotic range proteinuria but will need to rule out GN - Serum creatinine slightly worsened to 3.34 - Hepatitis B Surface Ag positive. Awaiting remaining serologies. - Hepatitis C IgG antibody positive, will check HCV viral load and genotype - Continue with lisinopril 20 mg qd, Lasix 40 IV q12, and Aldactone 50 mg qd - C/w Sodium bicarb 650 mg BID Hepatitis B Surface Ag positive, likely chronic Hep B - GI consulted, recs appreciated - Will await Hep B e Ag and other serologies. Hepatitis C IgG positive - Awaiting HCV viral load and genotype Hypertension - Presently controlled on Lasix 40 mg IV q12h, Lisinopril 20 mg po qd, Aldactone 50 mg po qd, and Verapamil 120 mg po qd. Patient was previously uncontrolled on same regimen. - Will await Nephro recs and adjust accordingly. Constipation - C/w Colace PO bid prn BPH - C/w Flomax Chronic anemia - Iron studies consistent w/ chronic disease anemia LLE edema, likely secondary to diastolic CHF - Lower extremity duplex negative for DVT - Echocardiogram showing severe concentric LVH - Continue with Lasix L foot pain - Likely secondary to overuse. The patient is homeless and walking around with bare feet often throughout the day Poorly controlled DM w/ hyperglycemia - A1c 10.3 - Continue with Levemir 20 units twice a day Time with Patient: Greater than 30
--- NOTE | 2018-02-05 20:26 | PN ---
PROGRESS NOTE Patient is seen for followup for uncontrolled hypertension and chronic kidney disease. His blood pressure remains labile with fluctuations, between 170 and 150 mmHg for systolic blood pressure. I added IV Lasix yesterday. Patient has had swelling in his lower extremities. He states his swelling is better. PHYSICAL EXAMINATION: On examination this morning, blood pressure was 150/94. He is afebrile. Heart rate 76 per minute. EXAMINATION OF THE HEART: S1, S2. EXAMINATION OF LUNGS: Bilateral breath sounds are heard. ABDOMEN: Soft, non-tender. Examination of lower extremities shows right BKA and 2+ edema on the left side. LABS: Labs from today show serum potassium of 3.34, sodium 138, potassium 4.6. CO2 is 22, chloride 108, magnesium 1.8. Serologies show hepatitis B surface antigen to be positive. Core antibody IgM was negative. ASSESSMENT: 1. Chronic kidney disease with underlying proteinuria and slight worsening of renal function with element of acute kidney injury, most likely related to recent initiation of diuresis. Hepatitis B surface antigen is positive. All other serologies are negative. Hep C IgG was also positive. Patient definitely needs a kidney biopsy, given his proteinuria and worsening renal function. His blood pressure needs to be better controlled before the biopsy can be performed. 2. Uncontrolled hypertension, partly volume-sensitive, started on Lasix, which I will continue for now. The last two blood pressures show systolic of 137 and 126. Continue with the current dose of Zestril along with Aldactone and verapamil. 3. Metabolic acidosis, maintained on oral sodium bicarb, currently improved. I will decrease the dose of sodium bicarb in an attempt to decrease the sodium load. PLAN: Decrease sodium bicarb to once a day. Continue with the Lasix. The patient should have a kidney biopsy performed this admission, given his positive hepatitis B surface antigen. The rest of the serologies for hepatitis C are currently pending, including viral load. MMODL / IJN: [id number] /
[2018-02-05 21:15] LABS: Glucose,Whole Blood 110 mg/dL (75-99)
[2018-02-05] MEDS: ATORVASTATIN 10 MG TAB PO SCH (21:23)
[2018-02-06] MEDS: HEPARIN SODIUM,PORCINE 5,000 UNIT/ML 1 ML VIAL SQ SCH ×3 (00:23→18:13)
[2018-02-06 03:09] LABS: Glucose,Whole Blood 161 mg/dL (75-99)
[2018-02-06 07:47] LABS: Glucose,Whole Blood 94 mg/dL (75-99)
[2018-02-06] MEDS: INSULIN ASPART 100 UNIT/ML 1 ML 10 ML VIAL SQ SCH ×4 (08:29→22:44)
[2018-02-06 08:37] LABS: HCT 32.4 % (39.0-53.0); HGB 10.6 gm/dL (13.0-17.5); MCH 29.7 pg (25.0-35.0); MCHC 32.8 g/dL (31.0-37.0); MCV 90.5 fL (80.0-100.0); Mean Platelet Volume 8.2; Platelet Count 203 k/uL (150-450); RBC 3.58 m/uL (4.30-5.90); WBC 4.1 k/uL (3.8-10.6)
[2018-02-06 09:06] LABS: Albumin 3.1 g/dL (3.5-5.0); Calcium 8.8 mg/dL (8.4-10.2); Potassium 4.6 mmol/L (3.5-5.1); Total Bilirubin 0.3 mg/dL (0.2-1.3); Total Protein 6.3 g/dL (6.3-8.2)
[2018-02-06] MEDS: INSULIN DETEMIR 100 UNIT/ML 10 ML VIAL SQ SCH ×2 (09:23→21:45)
[2018-02-06] MEDS: FUROSEMIDE 10 MG/ML 4 ML VIAL IV SCH (09:23)
[2018-02-06] MEDS: SPIRONOLACTONE 25 MG TAB PO SCH ×2 (09:23→21:49)
[2018-02-06] MEDS: TAMSULOSIN 0.4 MG CAP.ER.24H PO SCH (09:23)
[2018-02-06] MEDS: GABAPENTIN 100 MG CAP PO SCH ×3 (09:23→21:45)
[2018-02-06] MEDS: SODIUM BICARBONATE TAB 650 MG TAB PO SCH (09:23)
[2018-02-06] MEDS: LISINOPRIL 20 MG TAB PO SCH (09:23)
[2018-02-06] MEDS: VERAPAMIL 40 MG TAB PO SCH ×3 (09:24→21:46)
[2018-02-06] MEDS: NICOTINE 14MG/24HR PATCH TRANSDERM SCH (09:24)
[2018-02-06] MEDS: ACETAMINOPHEN TAB 325 MG TAB PO PRN (09:41)
[2018-02-06] MEDS: MORPHINE ORAL SOLN 10 MG/5 ML CUP PO PRN ×2 (10:28→21:50)
--- NOTE | 2018-02-06 10:31 | P.PN ---
Subjective Progress Note Date: 02/06/18 Patient seen and examined at the bedside. Patient notes that he is doing well and was in good spirits. The patient's left lower extremity swelling and L foot pain have gradually improved. He otherwise denied any active complaints including chest pain, shortness of breath, fever, chills, nausea, vomiting, diarrhea, or constipation. He endorsed having a bowel movement earlier today. The patient is expected to undergo kidney biopsy prior to discharge. The remaining studies for hepatitis B and C are pending. Objective - Vital Signs Vital signs: Vital Signs Temp 97.2 F L 02/06/18 04:00 Pulse 74 02/06/18 04:00 Resp 16 02/06/18 04:00 BP 208/110 02/06/18 08:55 Pulse Ox 96 02/06/18 04:00 Intake & Output 02/05/18 02/06/18 02/06/18 18:59 06:59 18:59 Intake Total 1200 200 Output Total 900 Balance 1200 -700 Weight 72.5 kg Intake: Oral 1200 200 Output: Urine 900 Other: Voiding Method Urinal # Voids 1 # Bowel Movements 1 - Exam General: Awake, alert, in no acute distress HEENT: NC/AT, anicteric sclerae, moist conjunctiva, no lid-lag, PERRLA, oropharynx clear, no erythema, exudates Cardiovascular: S1/S2 wnl, no murmurs, rubs, or gallops Lungs: Clear to auscultation, normal respiratory effort, no accessory muscle use Abdominal: Soft, nontender, non-distended, no guarding, rebound, or rigidity, normoactive bowel sounds Skin: Warm, dry Extremities: R BKA, L foot swelling, w/ no erythema, warmth, or tenderness. No calf tenderness noted. Psychiatric: Alert and oriented to person, place and time, appropriate affect, Intact judgment Neuro: CN II-XI grossly intact, sensation to light touch grossly present throughout, no focal sensory deficits - Labs CBC & Chem 7: 02/06/18 08:10 02/06/18 08:10 Labs: Abnormal Lab Results - Last 24 Hours (Table) 02/05/18 02/05/18 02/05/18 Range/Units 10:26 10:26 11:41 RBC 3.32 L (4.30-5.90) m/uL Hgb 9.8 L (13.0-17.5) gm/dL Hct 30.1 L (39.0-53.0) % Chloride 108 H (98-107) mmol/L BUN 53 H (9-20) mg/dL Creatinine 3.34 H (0.66-1.25) mg/dL POC Glucose (mg/dL) 124 H (75-99) mg/dL Phosphorus 4.7 H (2.5-4.5) mg/dL Albumin (3.5-5.0) g/dL 02/05/18 02/05/18 02/06/18 Range/Units 17:05 21:13 02:42 RBC (4.30-5.90) m/uL Hgb (13.0-17.5) gm/dL Hct (39.0-53.0) % Chloride (98-107) mmol/L BUN (9-20) mg/dL Creatinine (0.66-1.25) mg/dL POC Glucose (mg/dL) 145 H 110 H 161 H (75-99) mg/dL Phosphorus (2.5-4.5) mg/dL Albumin (3.5-5.0) g/dL 02/06/18 02/06/18 Range/Units 08:10 08:10 RBC 3.58 L (4.30-5.90) m/uL Hgb 10.6 L (13.0-17.5) gm/dL Hct 32.4 L (39.0-53.0) % Chloride (98-107) mmol/L BUN 52 H (9-20) mg/dL Creatinine 3.50 H (0.66-1.25) mg/dL POC Glucose (mg/dL) (75-99) mg/dL Phosphorus (2.5-4.5) mg/dL Albumin 3.1 L (3.5-5.0) g/dL Assessment and Plan Plan: GOKUL on CKD stage III, unknown etiology - Patient will undergo kidney biopsy to evaluate for GN -Patient's creatinine gradually uptrending. Will decrease Lasix to 40 PO q12h - Continue with lisinopril 20 mg qd, and Aldactone 50 mg qd. Will decrease Lasix to 40 mg PO qd - Sodium bicarb decreased to once daily. Hepatitis B Surface Ag positive, likely chronic Hep B - GI consulted, recs appreciated - Will await Hep B e Ag and other serologies. Hepatitis C IgG positive - Awaiting HCV viral load and genotype Hypertension - Uncontrolled on Lasix 40 mg IV q12h, Lisinopril 20 mg po qd, Aldactone 50 mg po qd, and Verapamil 120 mg po qd. - Will await Nephro recs and adjust accordingly. Constipation - C/w Colace PO bid prn BPH - C/w Flomax Chronic anemia - Iron studies consistent w/ chronic disease anemia LLE edema, likely secondary to diastolic CHF - Lower extremity duplex negative for DVT - Echocardiogram showing severe concentric LVH - Will decrease Lasix to 40 mg po qd L foot pain - Likely secondary to overuse. The patient is homeless and walking around with bare feet often throughout the day Poorly controlled DM - A1c 10.3 - Lasix decreased to 17 U bid DVT/GI prophyl. - Heparin Subq q8h - No indication for GI prophylaxis Time with Patient: Less than 30
--- NOTE | 2018-02-06 11:32 | US ---
EXAMINATION TYPE: US abdomen limited DATE OF EXAM: 02/06/2018 COMPARISON: 02/01/2018 ultrasound CLINICAL HISTORY: Chronic hepatitis B, screening HCC . NPO, Hx of gall stones. Left side pain. EXAM MEASUREMENTS: Liver Length: 20.5 cm Gallbladder Wall: 0.2 cm CBD: 0.6 cm CHD: 0.6 cm Right Kidney: 11.7 x 5.9 x 4.7 cm Pancreas: Dilated main pancreatic duct = 4.2 mm. Tail obscured by overlying bowel gas. Liver: Enlarged. No discrete masses or cysts are evident. Small amount of free fluid is adjacent to the liver. Gallbladder: Multiple mobile stones. Evidence for sonographic Quintanilla's sign: neg CBD: upper limits of normal CHD: upper limits of normal Right Kidney: Appears echogenic in appearance. Two cortical cystic appearing lesions. Largest late ral mid pole = 0.9 x 0.7 x 0.8 cm IMPRESSION: 1. Prominent pancreatic duct measuring 0.4 cm the proximal body. Normal less than 0.2 cm. Consider ER CP for additional evaluation. 2. Hepatomegaly. 3. Small moderate free fluid adjacent to the liver. 4. Cholelithiasis 5. Right renal cysts
--- NOTE | 2018-02-06 11:36 | P.PN ---
Subjective Progress Note Date: 02/06/18 Principal diagnosis: Hepatitis BE positive surface antigen, hepatitis C positive antibody 67-year-old homeless gentleman admitted with GOKUL CKD stage III foot pain evaluated yesterday for positivity of hepatitis B surface antigen and hepatitis C antibody. No complaints feels well anticipating discharged today. Denies abdominal pain. Afebrile. Creatinine slightly increased today from yesterday 3.5. Additional hepatitis B/C serology obtained yesterday and pending. AFP pending. Abdominal ultrasound completed results pending. Objective - Vital Signs Vital signs: Vital Signs Temp 97.2 F L 02/06/18 04:00 Pulse 74 02/06/18 07:58 Resp 16 02/06/18 04:00 BP 208/110 02/06/18 08:55 Pulse Ox 96 02/06/18 04:00 Intake & Output 02/05/18 02/06/18 02/06/18 18:59 06:59 18:59 Intake Total 1200 200 Output Total 900 Balance 1200 -700 Weight 72.5 kg Intake: Oral 1200 200 Output: Urine 900 Other: Voiding Method Urinal Urinal # Voids 1 # Bowel Movements 1 - Exam General appearance: The patient is alert, oriented, in no acute distress. HET: Head is normocephalic and atraumatic. Pupils are equal and reactive. Oropharynx is clear without lesions. Neck: Supple without lymphadenopathy. Trachea midline. Heart: S1 S2. Regular rate and rhythm. Lungs: No crackles or wheezes are heard. Abdomen: Soft, nontender, nondistended with bowel sounds. No peritoneal signs. No palpable organomegaly or masses. Extremities: Left BKA. Normal skin color and turgor. No cyanosis, rash, ulceration, clubbing, or edema. Radial and pedal pulses are 2/4 bilaterally. Neurological: No focal deficits. Strength and sensation are grossly intact. - Labs CBC & Chem 7: 02/06/18 08:10 02/06/18 08:10 Labs: Abnormal Lab Results - Last 24 Hours (Table) 02/05/18 02/05/18 02/05/18 Range/Units 11:41 17:05 21:13 RBC (4.30-5.90) m/uL Hgb (13.0-17.5) gm/dL Hct (39.0-53.0) % BUN (9-20) mg/dL Creatinine (0.66-1.25) mg/dL POC Glucose (mg/dL) 124 H 145 H 110 H (75-99) mg/dL Albumin (3.5-5.0) g/dL 02/06/18 02/06/18 02/06/18 Range/Units 02:42 08:10 08:10 RBC 3.58 L (4.30-5.90) m/uL Hgb 10.6 L (13.0-17.5) gm/dL Hct 32.4 L (39.0-53.0) % BUN 52 H (9-20) mg/dL Creatinine 3.50 H (0.66-1.25) mg/dL POC Glucose (mg/dL) 161 H (75-99) mg/dL Albumin 3.1 L (3.5-5.0) g/dL Assessment and Plan (1) Hepatitis B surface antigen positive Current Visit: Yes Status: Acute Code(s): R76.8 - OTHER SPECIFIED ABNORMAL IMMUNOLOGICAL FINDINGS IN SERUM SNOMED Code(s): 506049799 (2) Hepatitis C antibody positive in blood Current Visit: Yes Status: Acute Code(s): R76.8 - OTHER SPECIFIED ABNORMAL IMMUNOLOGICAL FINDINGS IN SERUM SNOMED Code(s): 565240499 (3) Anemia of chronic disease Current Visit: Yes Status: Acute Code(s): D63.8 - ANEMIA IN OTHER CHRONIC DISEASES CLASSIFIED ELSEWHERE SNOMED Code(s): 269549033 Plan: 1. Follow-up in office after discharge for discussion of treatment options. Patient will need a screening colonoscopy in the outpatient setting. Discharge per medicine. No further workup from a GI standpoint at this time. Assessment and plan of care discussed with Dr. Neil
[2018-02-06 12:27] LABS: Glucose,Whole Blood 136 mg/dL (75-99)
[2018-02-06] MEDS ORDERED: hydrALAZINE HCL 20 MG/ML 1 ML VIAL IVP PRN (12:55)
--- NOTE | 2018-02-06 13:42 | P.PN ---
Subjective Patient is seen in follow-up for acute kidney injury on chronic kidney disease. Patient appears to have chronic kidney disease stage IIIB with baseline creatinine fluctuating in the range of 1.5-2.5. Creatinine worse at 3.5 today which is due to diuresis. Currently resting in bed. Blood pressure is still uncontrolled. Patient feels nauseous. He did have an episode of emesis this morning. Denies chest pain or shortness of breath. Oral intake is good. Vital signs are stable. General: The patient appeared well nourished and normally developed. HEENT: Head exam is unremarkable. Neck is without jugular venous distension. LUNGS: Lungs are clear to auscultation and percussion. Breath sounds decreased. HEART: Rate and Rhythm are regular. First and second heart sounds normal. No murmurs, rubs or gallops. ABDOMEN: Abdominal exam reveals normal bowel sounds. Non-tender and non- distended. No evidence of peritonitis. EXTREMITITES: Trace edema left lower extremity. Right BKA noted. Objective - Vital Signs Vital signs: Vital Signs Temp 97.2 F L 02/06/18 04:00 Pulse 74 02/06/18 07:58 Resp 16 02/06/18 04:00 BP 208/110 02/06/18 08:55 Pulse Ox 96 02/06/18 04:00 Intake & Output 02/05/18 02/06/18 02/06/18 18:59 06:59 18:59 Intake Total 1200 200 Output Total 900 Balance 1200 -700 Weight 72.5 kg Intake: Oral 1200 200 Output: Urine 900 Other: Voiding Method Urinal Urinal # Voids 1 # Bowel Movements 1 - Labs CBC & Chem 7: 02/06/18 08:10 02/06/18 08:10 Labs: Abnormal Lab Results - Last 24 Hours (Table) 02/05/18 02/05/18 02/06/18 Range/Units 17:05 21:13 02:42 RBC (4.30-5.90) m/uL Hgb (13.0-17.5) gm/dL Hct (39.0-53.0) % BUN (9-20) mg/dL Creatinine (0.66-1.25) mg/dL POC Glucose (mg/dL) 145 H 110 H 161 H (75-99) mg/dL Albumin (3.5-5.0) g/dL 02/06/18 02/06/18 02/06/18 Range/Units 08:10 08:10 12:23 RBC 3.58 L (4.30-5.90) m/uL Hgb 10.6 L (13.0-17.5) gm/dL Hct 32.4 L (39.0-53.0) % BUN 52 H (9-20) mg/dL Creatinine 3.50 H (0.66-1.25) mg/dL POC Glucose (mg/dL) 136 H (75-99) mg/dL Albumin 3.1 L (3.5-5.0) g/dL Assessment and Plan Plan: Assessment: 1. Nonoliguric acute kidney injury mostly prerenal secondary to diuresis. Creatinine up to 3.5 today. No evidence of hydronephrosis noted on renal ultrasound. 2. Insulin-dependent diabetes mellitus. 3. Chronic kidney disease stage IIIB with baseline creatinine in the range of 1.5-2.5. Patient has nephrotic range proteinuria which is likely from diabetic kidney disease but need to rule out GN. 4. Hypertension with chronic kidney disease. Uncontrolled. Partially related to nausea and vomiting. 5. Anemia of chronic kidney disease. Hemoglobin at goal. Iron replete. 6. Metabolic acidosis secondary to chronic kidney disease. 7. Positive hepatitis B surface antigen as well as hepatitis C IgG. Gastroenterology following. Plan: Increase Aldactone to 50 mg twice daily. Add hydralazine 10 mg IV every 4 hours if needed for systolic blood pressure greater than 160. Maintain oral sodium bicarbonate. Monitor electrolytes. Kidney biopsy once blood pressure better controlled.
[2018-02-06] MEDS ORDERED: LABETALOL 5 MG/ML VIAL MDV IVP STA (14:46)
[2018-02-06] MEDS: NITROGLYCERIN SL TABS 0.4 MG TAB SUBLINGUAL PRN ×2 (14:47→14:51)
[2018-02-06 15:26] LABS: Magnesium 1.7 mg/dL (1.6-2.3); Potassium 4.4 mmol/L (3.5-5.1)
[2018-02-06 15:41] LABS: Creatine Kinase MB 3.7 ng/mL (0.0-2.4); Troponin I 0.013 ng/mL (0.000-0.034)
[2018-02-06 15:51] LABS: Basophils % (A) 0 %; Eosinophils # (A) 0.1 k/uL (0-0.7); Eosinophils % (A) 2 %; HCT 31.6 % (39.0-53.0); HGB 10.4 gm/dL (13.0-17.5); Lymphocytes # (A) 0.5 k/uL (1.0-4.8); Lymphocytes % (A) 16 %; MCH 29.3 pg (25.0-35.0); MCHC 32.8 g/dL (31.0-37.0); MCV 89.4 fL (80.0-100.0); Mean Platelet Volume 8.5; Monocytes # (A) 0.2 k/uL (0-1.0); Monocytes % (A) 7 %; Neutrophils # (A) 2.2 k/uL (1.3-7.7); Neutrophils % (A) 73 %; Platelet Count 189 k/uL (150-450); RBC 3.53 m/uL (4.30-5.90); RDW 13.8 % (11.5-15.5); WBC 3.1 k/uL (3.8-10.6)
[2018-02-06] MEDS ORDERED: MAG HYDROX/AL HYDROX/SIMETH 30 ML CUP PO STA (16:10)
--- NOTE | 2018-02-06 16:10 | XR ---
EXAMINATION TYPE: XR chest 1V DATE OF EXAM: 02/06/2018 COMPARISON: Prior chest 06/30/2017 HISTORY: Chest pain and shortness of breath TECHNIQUE: Single frontal view of the chest is obtained. FINDINGS: Patient is rotated. The heart is enlarged. No evident pneumothorax. Retrocardiac density, bibasilar increased density noted. Central vascularity is increased. IMPRESSION: Correlate for congestive heart failure, volume overload, follow-up recommended
[2018-02-06 16:13] LABS: Glucose,Whole Blood 77 mg/dL (75-99)
--- NOTE | 2018-02-06 16:14 | XR ---
EXAMINATION TYPE: XR chest 2V DATE OF EXAM: 02/06/2018 COMPARISON: NONE HISTORY: Chest pain TECHNIQUE: Frontal and lateral views of the chest are obtained. FINDINGS: Patient is again rotated. No significant change. Prominent lung lines could be indicative of underlying COPD. IMPRESSION: Correlate for congestive heart failure. There are likely pleural effusions. Pneumonia no t excluded.
[2018-02-06] MEDS ORDERED: LABETALOL 200 MG TAB PO STA (16:51)
[2018-02-06] MEDS: CLEVIDIPINE BUTYRATE 25 MG in EMPTY BAG 1 BAG IV SCH ×2 (16:59→21:49)
--- NOTE | 2018-02-06 17:51 | P.CNPUL ---
History of Present Illness Consult date: 02/06/18 Reason for consult: chest pain History of present illness: 37-year-old -[place] male patient who got transferred to the intensive care unit for hypertensive emergency situation. The patient was hospitalized for acute kidney injury on top of chronic renal failure. The patient has long history of diabetes mellitus, hepatitis B, hepatitis C, remote history of IVDA, chronic renal failure, stage III chronic kidney disease, hypertension, hyperlipidemia, COPD, and multiple admissions in the past for complications related to diabetes and DKA. He also has also a below-knee amputation on the right. He has peripheral neuropathy in his lower extremities bilaterally. He has issues with chronic pain. He has been incarcerated on various occasions. During this current ICU admission, the patient was transferred because of diaphoresis and chest pain. Was noted the patient's blood pressure was high with systolics above 170 and diastolic above 100. Chest x-ray showed pulmonary edema and some widening of the vascular pedicle. At that point there was concern of dissection yet the blood pressure in both upper extremities with equivalent. The patient had a stat echocardiogram that showed no evidence of any dissection or acute regurgitation. Chest x-ray was consistent with pulmonary edema. First set of cardiac enzyme was negative with troponin of 0.013. EKG does not showing any acute ST segment elevation or depression. The patient got moved to the intensive care unit. Currently is on Drip at 2 mg per hour. He also also on a combination of blood pressure medications including hydralazine IV, verapamil, lisinopril 20 mg by mouth daily, Lasix 40 mg by mouth daily and Trandate 200 mg by mouth twice a day. He is currently free of any chest pain. No known history of coronary artery disease although this is suspected. He is awake. He is alert. No neck pain. No jaw pain. No back pain at this point in time. His UA is indicating proteinuria with +2 protein being spilled and nephrology is ultimately is interested in doing a kidney biopsy at a later stage. Review of Systems Constitutional: Reports fatigue, Reports weakness Eyes: denies blurred vision, denies bulging eye, denies decreased vision Ears: deny: decreased hearing, ear discharge, earache, tinnitus Ears, nose, mouth and throat: Denies headache, Denies sore throat Cardiovascular: Reports chest pain, Reports decreased exercise tolerance, Reports dyspnea on exertion Respiratory: Reports dyspnea Gastrointestinal: Denies abdominal pain, Denies diarrhea, Denies nausea, Denies vomiting Genitourinary: Reports as per HPI Musculoskeletal: Reports as per HPI, Reports limitation of motion, Reports low back pain Musculoskeletal: absent: ankle pain, ankle stiffness, ankle swelling Integumentary: Denies pruritus, Denies rash Neurological: Reports gait dysfunction, Reports numbness, Reports paresthesias, Reports weakness Psychiatric: Denies anxiety, Denies depression Endocrine: Reports high blood sugars Hematologic/Lymphatic: Reports as per HPI Allergic/Immunologic: Reports as per HPI Past Medical History Past Medical History: COPD, Diabetes Mellitus, Deep Vein Thrombosis (DVT), Eye Disorder, GERD/Reflux, Hyperlipidemia, Hypertension, Liver Disease, Pneumonia, Prostate Disorder, Renal Disease Additional Past Medical History / Comment(s): Other HX: IDDM-poorly controlled with admissions for DKA and metabolic encephalopathies, severe sepsis with R foot gangrene with metabolic encephalopathy resulting in R BKA 07/2014, chronic renal failure with known history of stage III chronic kidney disease, electolyte abnormalities, DJD, NEUROPATHY bilateral legs and feet, pinch nerves on right neck and left hip, herniated disc causing sciatic pain, chronic back pain, falls, fracture lower left ribs, DVT leg, hepatitis B viral infection, Hepatits c- was going to [facility] for interferon yrs ago that did not work, concussions, gout, diabetic retinopathy, IBS, BPH, gonorrhea. History of Any Multi-Drug Resistant Organisms: MRSA Date of last positivie culture/infection: 07/02/17 MDRO Source:: toe Past Surgical History: Orthopedic Surgery Additional Past Surgical History / Comment(s): 07/27/14 R BKA, liver bx in [place], RT ORBIT reconstruction, fracture of left hip 03/20/2014 with surgery, LT ARM ORIF, SAM KNEES scoped, LT FINGER, colonoscopy, EGD, L hand sx, R inguinal hernia surgery x2, circumcism. Past Anesthesia/Blood Transfusion Reactions: No Reported Reaction Past Psychological History: Anxiety, Depression Additional Psychological History / Comment(s): patient live at 3/ house Smoking Status: Current every day smoker Past Alcohol Use History: Occasional Additional Past Alcohol Use History / Comment(s): Old record indicates pt started smoking in 1968 Past Drug Use History: None Reported Additional Drug Use History / Comment(s): Past history of substance abuse. Old medical records indicate cocaine abuse and drug screens in past positive for cocaine and opiates. - Past Family History Father Additional Family Medical History / Comment(s): ulcers Mother Family Medical History: Diabetes Mellitus Additional Family Medical History / Comment(s): Mother in her 80's. Sister(s) Family Medical History: Diabetes Mellitus Medications and Allergies Home Medications Medication Instructions Recorded Confirmed Type Gabapentin 800 mg PO TID #90 tab 05/25/16 01/30/18 Rx Simvastatin [Zocor] 20 mg PO HS #30 tab 05/25/16 01/30/18 Rx Tamsulosin [Flomax] 0.4 mg PO DAILY #30 cap 07/05/17 01/30/18 Rx Insulin Glargine [Lantus] 20 unit SQ BID 01/30/18 01/30/18 History Insulin Glulisine [Apidra Solostar] 8 - 10 unit SQ AC-TID 01/30/18 01/30/18 History glipiZIDE [Glucotrol] 5 mg PO TID 01/30/18 01/30/18 History Lisinopril [Zestril] 20 mg PO DAILY #30 tab 02/03/18 Rx Spironolactone [Aldactone] 50 mg PO BID #60 tab 02/03/18 Rx Verapamil [Isoptin] 120 mg PO TID #90 tab 02/03/18 Rx Allergies Allergy/AdvReac Type Severity Reaction Status Date / Time No Known Allergies Allergy Verified 01/30/18 17:24 Physical Exam Vitals: Vital Signs Temp Pulse Resp BP BP Pulse Ox 02/06/18 15:09 133/85 02/06/18 14:52 193/113 02/06/18 14:25 219/108 02/06/18 13:30 97.9 F 99 20 227/118 02/06/18 11:45 173/103 83 L 02/06/18 10:15 83 212/116 208/113 02/06/18 08:55 191/99 208/110 02/06/18 07:58 74 02/06/18 04:00 97.2 F L 74 16 165/92 96 02/05/18 23:06 98.2 F 77 16 153/91 93 L 02/05/18 20:41 88 18 142/86 09/05/18 18:10 137/81 Intake and Output 02/06/18 02/06/18 02/06/18 06:59 14:59 22:59 Intake Total 1.033 Output Total 700 Balance -700 1.033 Intake: Intake, IV Titration 1.033 Amount Clevidipine Butyrate 25 1.033 mg In Empty Bag 1 bag @ 1 MG/HR 2 mls/hr IV .Q24H [facility] Rx#:[id number] Output: Urine 700 Other: Voiding Method Urinal # Bowel Movements 1 Weight 72.5 kg Calm comfortable no acute distress.using accessory muscles of breathing Head exam was generally normal. There was no scleral icterus or corneal arcus. Mucous membranes were moist. Neck was supple and with jugular venous distension, thyromegaly, or carotid bruits. Carotids were easily palpable bilaterally. There was no adenopathy. There is positive jugular venous distention Lungs sounds are diminished bilaterally along with bibasilar crackles, no wheezes or rhonchi. Cardiac exam revealed the PMI to be normally situated and sized. The rhythm was regular and no extrasystoles were noted during several minutes of auscultation. The first and second heart sounds were normal and physiologic splitting of the second heart sound was noted. There were no murmurs, rubs, clicks, or gallops. Abdominal exam revealed normal bowel sounds. The abdomen was soft, non-tender, and without masses, organomegaly, or appreciable enlargement of the abdominal aorta. Examination of the extremities revealed easily palpable radial, femoral and pedal pulses. There was no cyanosis, clubbing or edema. Neurologically awake and alert and there is no focal neurological deficit Psychiatric the patient is appropriate mood and affect Results - Laboratory Findings CBC and BMP: 02/06/18 14:58 02/06/18 14:58 Abnormal lab findings: Abnormal Labs 01/30/18 01/30/18 01/30/18 18:56 18:56 23:36 WBC RBC 3.68 L Hgb 11.0 L Hct 34.5 L Lymphocytes # Chloride 110 H Carbon Dioxide BUN 48 H Creatinine 3.10 H Glucose 171 H POC Glucose (mg/dL) 170 H Hemoglobin A1c Calcium Phosphorus CK-MB (CK-2) Total Protein 6.2 L Total Protein (PEP) Albumin 3.1 L Albumin (PEP) Oakxi-0-Yhiqxfxzn Urine Protein Urine Glucose (UA) Urine Blood U Random Total Protein Hep Bs Antigen Hep C IgG Ab HCV RNA Qual (PCR) 01/31/18 01/31/18 01/31/18 07:28 07:28 07:28 WBC 3.6 L RBC 3.49 L Hgb 10.4 L Hct 33.2 L Lymphocytes # Chloride 113 H Carbon Dioxide BUN 41 H Creatinine 3.00 H Glucose 208 H POC Glucose (mg/dL) Hemoglobin A1c 10.3 H Calcium 8.2 L Phosphorus CK-MB (CK-2) Total Protein Total Protein (PEP) Albumin Albumin (PEP) Msetz-9-Odsnxywjr Urine Protein Urine Glucose (UA) Urine Blood U Random Total Protein Hep Bs Antigen Hep C IgG Ab HCV RNA Qual (PCR) 01/31/18 01/31/18 01/31/18 07:41 11:10 11:45 WBC RBC Hgb Hct Lymphocytes # Chloride Carbon Dioxide BUN Creatinine Glucose POC Glucose (mg/dL) 234 H 128 H Hemoglobin A1c Calcium Phosphorus CK-MB (CK-2) Total Protein Total Protein (PEP) Albumin Albumin (PEP) Dvkqf-3-Htrpbqfcb Urine Protein 2+ H Urine Glucose (UA) Trace H Urine Blood Trace H U Random Total Protein Hep Bs Antigen Hep C IgG Ab HCV RNA Qual (PCR) 01/31/18 01/31/18 01/31/18 11:45 16:33 21:04 WBC RBC Hgb Hct Lymphocytes # Chloride Carbon Dioxide BUN Creatinine Glucose POC Glucose (mg/dL) 187 H 238 H Hemoglobin A1c Calcium Phosphorus CK-MB (CK-2) Total Protein Total Protein (PEP) Albumin Albumin (PEP) Hdacz-1-Rxomokmgx Urine Protein Urine Glucose (UA) Urine Blood U Random Total Protein 284 H Hep Bs Antigen Hep C IgG Ab HCV RNA Qual (PCR) 02/01/18 02/01/18 02/01/18 07:02 07:35 07:35 WBC RBC Hgb Hct Lymphocytes # Chloride 112 H Carbon Dioxide BUN 43 H Creatinine 2.98 H Glucose 120 H POC Glucose (mg/dL) 61 L 136 H Hemoglobin A1c Calcium 7.9 L Phosphorus CK-MB (CK-2) Total Protein Total Protein (PEP) Albumin Albumin (PEP) Rxlhu-2-Idwoqaqjf Urine Protein Urine Glucose (UA) Urine Blood U Random Total Protein Hep Bs Antigen Hep C IgG Ab HCV RNA Qual (PCR) 02/01/18 02/01/18 02/01/18 10:46 11:11 12:31 WBC RBC Hgb Hct Lymphocytes # Chloride Carbon Dioxide BUN Creatinine Glucose POC Glucose (mg/dL) 61 L 144 H 100 H Hemoglobin A1c Calcium Phosphorus CK-MB (CK-2) Total Protein Total Protein (PEP) Albumin Albumin (PEP) Rvcqk-4-Iuscpiyvq Urine Protein Urine Glucose (UA) Urine Blood U Random Total Protein Hep Bs Antigen Hep C IgG Ab HCV RNA Qual (PCR) 02/01/18 02/01/18 02/01/18 13:23 17:25 21:10 WBC RBC Hgb Hct Lymphocytes # Chloride Carbon Dioxide BUN Creatinine Glucose POC Glucose (mg/dL) 144 H 183 H Hemoglobin A1c Calcium Phosphorus CK-MB (CK-2) Total Protein Total Protein (PEP) Albumin Albumin (PEP) Othmo-5-Anvryltbu Urine Protein Urine Glucose (UA) Urine Blood U Random Total Protein 425 H Hep Bs Antigen Hep C IgG Ab HCV RNA Qual (PCR) 02/02/18 02/02/18 02/02/18 06:35 08:07 08:07 WBC RBC Hgb Hct Lymphocytes # Chloride 112 H Carbon Dioxide BUN 42 H Creatinine 3.04 H Glucose POC Glucose (mg/dL) 58 L Hemoglobin A1c Calcium 8.3 L Phosphorus CK-MB (CK-2) Total Protein Total Protein (PEP) 5.5 L Albumin Albumin (PEP) 2.62 L Nbnzt-6-Shmbawhsr 1.12 H Urine Protein Urine Glucose (UA) Urine Blood U Random Total Protein Hep Bs Antigen Reactive H Hep C IgG Ab Reactive H HCV RNA Qual (PCR) 02/02/18 02/02/18 02/02/18 11:34 16:57 20:19 WBC RBC Hgb Hct Lymphocytes # Chloride Carbon Dioxide BUN Creatinine Glucose POC Glucose (mg/dL) 147 H 137 H 72 L Hemoglobin A1c Calcium Phosphorus CK-MB (CK-2) Total Protein Total Protein (PEP) Albumin Albumin (PEP) Dngeb-3-Xwtigknzp Urine Protein Urine Glucose (UA) Urine Blood U Random Total Protein Hep Bs Antigen Hep C IgG Ab HCV RNA Qual (PCR) 02/02/18 02/03/18 02/03/18 20:51 07:08 07:40 WBC RBC Hgb Hct Lymphocytes # Chloride 112 H Carbon Dioxide 17 L BUN 48 H Creatinine 3.15 H Glucose 169 H POC Glucose (mg/dL) 101 H 170 H Hemoglobin A1c Calcium 8.2 L Phosphorus CK-MB (CK-2) Total Protein Total Protein (PEP) Albumin Albumin (PEP) Kmpqa-2-Tnhuzrwnz Urine Protein Urine Glucose (UA) Urine Blood U Random Total Protein Hep Bs Antigen Hep C IgG Ab HCV RNA Qual (PCR) 02/03/18 02/03/18 02/03/18 11:37 15:48 16:06 WBC RBC Hgb Hct Lymphocytes # Chloride Carbon Dioxide BUN Creatinine Glucose POC Glucose (mg/dL) 327 H 67 L 104 H Hemoglobin A1c Calcium Phosphorus CK-MB (CK-2) Total Protein Total Protein (PEP) Albumin Albumin (PEP) Brvpd-0-Xzslcjltw Urine Protein Urine Glucose (UA) Urine Blood U Random Total Protein Hep Bs Antigen Hep C IgG Ab HCV RNA Qual (PCR) 02/03/18 02/03/18 02/04/18 16:57 21:36 08:33 WBC RBC Hgb Hct Lymphocytes # Chloride Carbon Dioxide BUN Creatinine Glucose POC Glucose (mg/dL) 126 H 185 H 129 H Hemoglobin A1c Calcium Phosphorus CK-MB (CK-2) Total Protein Total Protein (PEP) Albumin Albumin (PEP) Doegj-9-Axgvrhbqh Urine Protein Urine Glucose (UA) Urine Blood U Random Total Protein Hep Bs Antigen Hep C IgG Ab HCV RNA Qual (PCR) 02/04/18 02/04/18 02/04/18 09:40 12:50 16:51 WBC RBC Hgb Hct Lymphocytes # Chloride 109 H Carbon Dioxide 19 L BUN 48 H Creatinine 3.19 H Glucose 200 H POC Glucose (mg/dL) 176 H 146 H Hemoglobin A1c Calcium Phosphorus CK-MB (CK-2) Total Protein Total Protein (PEP) Albumin Albumin (PEP) Cnlrn-0-Bqcpdiuhb Urine Protein Urine Glucose (UA) Urine Blood U Random Total Protein Hep Bs Antigen Hep C IgG Ab HCV RNA Qual (PCR) 02/05/18 02/05/18 02/05/18 07:11 10:26 10:26 WBC RBC 3.32 L Hgb 9.8 L Hct 30.1 L Lymphocytes # Chloride Carbon Dioxide BUN Creatinine Glucose POC Glucose (mg/dL) 54 L Hemoglobin A1c Calcium Phosphorus CK-MB (CK-2) Total Protein Total Protein (PEP) Albumin Albumin (PEP) Fyezq-5-Pvzcvpthm Urine Protein Urine Glucose (UA) Urine Blood U Random Total Protein Hep Bs Antigen Hep C IgG Ab HCV RNA Qual (PCR) DETECTED H 02/05/18 02/05/18 02/05/18 10:26 11:41 17:05 WBC RBC Hgb Hct Lymphocytes # Chloride 108 H Carbon Dioxide BUN 53 H Creatinine 3.34 H Glucose POC Glucose (mg/dL) 124 H 145 H Hemoglobin A1c Calcium Phosphorus 4.7 H CK-MB (CK-2) Total Protein Total Protein (PEP) Albumin Albumin (PEP) Wtaek-1-Gbdbesmnk Urine Protein Urine Glucose (UA) Urine Blood U Random Total Protein Hep Bs Antigen Hep C IgG Ab HCV RNA Qual (PCR) 02/05/18 02/06/18 02/06/18 21:13 02:42 08:10 WBC RBC 3.58 L Hgb 10.6 L Hct 32.4 L Lymphocytes # Chloride Carbon Dioxide BUN Creatinine Glucose POC Glucose (mg/dL) 110 H 161 H Hemoglobin A1c Calcium Phosphorus CK-MB (CK-2) Total Protein Total Protein (PEP) Albumin Albumin (PEP) Ruvvz-0-Mycsfacmo Urine Protein Urine Glucose (UA) Urine Blood U Random Total Protein Hep Bs Antigen Hep C IgG Ab HCV RNA Qual (PCR) 02/06/18 02/06/18 02/06/18 08:10 12:23 14:58 WBC 3.1 L RBC 3.53 L Hgb 10.4 L Hct 31.6 L Lymphocytes # 0.5 L Chloride Carbon Dioxide BUN 52 H Creatinine 3.50 H Glucose POC Glucose (mg/dL) 136 H Hemoglobin A1c Calcium Phosphorus CK-MB (CK-2) Total Protein Total Protein (PEP) Albumin 3.1 L Albumin (PEP) Wjmyg-3-Bjswwjdda Urine Protein Urine Glucose (UA) Urine Blood U Random Total Protein Hep Bs Antigen Hep C IgG Ab HCV RNA Qual (PCR) 02/06/18 02/06/18 14:58 15:00 WBC RBC Hgb Hct Lymphocytes # Chloride Carbon Dioxide BUN 54 H Creatinine 3.32 H Glucose POC Glucose (mg/dL) Hemoglobin A1c Calcium Phosphorus CK-MB (CK-2) 3.7 H Total Protein Total Protein (PEP) Albumin Albumin (PEP) Sxfcq-3-Zckrnwcvn Urine Protein Urine Glucose (UA) Urine Blood U Random Total Protein Hep Bs Antigen Hep C IgG Ab HCV RNA Qual (PCR) - Diagnostic Findings Chest x-ray: image reviewed Assessment and Plan Plan: Assessment 1 acute hypertensive emergency, transferred to the intensive care unit for blood pressure control. Current blood pressure is under better control on clevidipine drip. In addition, the patient is on a combination of verapamil, hydralazine, Lasix, and lisinopril. Echocardiogram shows evidence any dissection. The patient likely has an underlying hypertensive heart disease and has a component of acute pulmonary edema in addition. First set of troponin is negative. EKG is not showing any acute ischemic changes or abnormalities 2 acute kidney injury on top of chronic renal failure. The patient is known to have stage III chronic kidney disease. The patient has proteinuria and underlying diabetic nephropathy or any other chronic nephropathy related to hepatitis B and hepatitis C cannot be completely ruled out. The patient needs a kidney biopsy at a later stage. Nephrology is on the case. 3 peripheral vascular disease with previous right below knee amputation 2014 4 COPD 5 diabetes mellitus with insulin dependence, essentially poorly controlled with diabetic complications including neuropathy, retinopathy and possible nephropathy 6 hyperlipidemia 7 hypertension 8 hepatitis B and hepatitis C viral infection of the liver with chronic liver disease 9 BPH 10 previous hospitalizations for DKA 11 previous history of brain concussion 12 gout 13 previous history of DVT, currently on no anticoagulation 14 previous history of fractures on the left 15 previous history of chronic back pain and sciatica and degenerative arthritis 16 anxiety and depression 17 remote history of IVDA 18 smoker 19 chronic anemia, anemia of chronic disease Plan Check HIV status. Check urine drug screen. Monitor cardiac enzymes. Awaiting official echocardiogram results. Watch for any further chest pain or cardiac arrhythmias. Repeat chest x-ray in the morning. Given a dose of Lasix 43 g IV push. Continue the Drip with clevidipine for blood pressure control and gradually wean off to keep a systolic blood pressure less than 160. Monitor renal function. Kidney biopsy at a later stage in regards to his chronic renal failure. Rest of the medications were ordered resume. Keep the patient ICU. Blood sugar management and the patient is currently on Levemir 17 units twice a day along with a sliding scale coverage. We'll continue to follow. Long-term prognosis poor baseline above-mentioned comorbidities.
[2018-02-06 21:24] LABS: Glucose,Whole Blood 147 mg/dL (75-99)
[2018-02-06] MEDS: PANTOPRAZOLE 40 MG/10 ML VIAL IV SCH (21:45)
[2018-02-06] MEDS: LABETALOL 200 MG TAB PO SCH (21:45)
[2018-02-06] MEDS: ATORVASTATIN 10 MG TAB PO SCH (21:45)
--- NOTE | 2018-02-06 23:37 | MR ---
MR angiogram of the thoracic aorta. History possible dissection. Comparison none. TECHNIQUE: MR angiographic images were obtained of the thoracic aorta with no contrast. FINDINGS: There are bilateral pleural effusions are larger on the right side. Heart is enlarged. There is fairl y uniform signal pattern in the lumen of the thoracic aorta. I see no sign of aortic dissection. The ascending aorta measures 3.6 cm. There is no evidence of mediastinal adenopathy. There is some infilt rate and atelectasis at the lung bases. IMPRESSION: No evidence of thoracic aortic aneurysm or dissection. Pleural effusions with basilar pulmonary infiltrates and atelectasis. Pleural fluid is more on the ri ght side.
[2018-02-06 23:49] LABS: Amphetamine Screen,Urine Not Detected (NotDetected); Barbiturate Screen,Urine Not Detected (NotDetected); Benzodiazepines Screen,Urine Not Detected (NotDetected); Cocaine Screen,Urine Detected (NotDetected); Methadone Screen, Urine Not Detected (NotDetected); Opiate Screen,Urine Detected (NotDetected); Oxycodone Screen, Urine Not Detected (NotDetected); Phencyclidine Screen,Urine Not Detected (NotDetected); Tricyclic Antidepressant,Urine Not Detected (NotDetected); Urn Cannabinoid Scrn Not Detected (NotDetected)
[2018-02-07] MEDS: HEPARIN SODIUM,PORCINE 5,000 UNIT/ML 1 ML VIAL SQ SCH ×3 (00:59→18:31)
[2018-02-07] MEDS: CLEVIDIPINE BUTYRATE 25 MG in EMPTY BAG 1 BAG IV SCH ×2 (01:52→05:50)
[2018-02-07 03:13] LABS: Glucose,Whole Blood 134 mg/dL (75-99)
[2018-02-07 03:35] LABS: Basophils % (A) 0 %; Eosinophils % (A) 1 %; HCT 29.3 % (39.0-53.0); HGB 9.4 gm/dL (13.0-17.5); Lymphocytes # (A) 0.4 k/uL (1.0-4.8); Lymphocytes % (A) 6 %; MCH 29.4 pg (25.0-35.0); MCHC 32.1 g/dL (31.0-37.0); MCV 91.6 fL (80.0-100.0); Mean Platelet Volume 7.8; Monocytes # (A) 0.4 k/uL (0-1.0); Monocytes % (A) 5 %; Neutrophils # (A) 5.9 k/uL (1.3-7.7); Neutrophils % (A) 87 %; Platelet Count 233 k/uL (150-450); WBC 6.8 k/uL (3.8-10.6)
[2018-02-07 03:57] LABS: Calcium 8.7 mg/dL (8.4-10.2); Magnesium 1.7 mg/dL (1.6-2.3); Phosphorus 5.5 mg/dL (2.5-4.5); Potassium 5.1 mmol/L (3.5-5.1)
[2018-02-07 04:55] LABS: HIV 1 AB Non-Reactive (Non-Reactive); HIV AB P24 Non-Reactive (Non-Reactive); HIV P24 AG Non-Reactive (Non-Reactive)
[2018-02-07] MEDS ORDERED: MAGNESIUM SULFATE-D5W PMX 1 GM in DEXTROSE/WATER 1 100ML.BAG IVPB ONE (06:49)
[2018-02-07 07:18] LABS: Glucose,Whole Blood 167 mg/dL (75-99)
[2018-02-07] MEDS: INSULIN ASPART 100 UNIT/ML 1 ML 10 ML VIAL SQ SCH ×4 (07:45→21:52)
[2018-02-07] MEDS: SPIRONOLACTONE 25 MG TAB PO SCH (08:23)
[2018-02-07] MEDS: GABAPENTIN 100 MG CAP PO SCH ×3 (08:24→22:07)
[2018-02-07] MEDS: FUROSEMIDE 40 MG TAB PO SCH (08:24)
[2018-02-07] MEDS: NICOTINE 14MG/24HR PATCH TRANSDERM SCH (08:24)
[2018-02-07] MEDS: SODIUM BICARBONATE TAB 650 MG TAB PO SCH (08:24)
[2018-02-07] MEDS: LISINOPRIL 20 MG TAB PO SCH (08:24)
[2018-02-07] MEDS: PANTOPRAZOLE 40 MG/10 ML VIAL IV SCH (08:24)
[2018-02-07] MEDS: TAMSULOSIN 0.4 MG CAP.ER.24H PO SCH (08:24)
[2018-02-07] MEDS: INSULIN DETEMIR 100 UNIT/ML 10 ML VIAL SQ SCH ×2 (08:32→22:06)
[2018-02-07] MEDS: VERAPAMIL 40 MG TAB PO SCH (08:33)
[2018-02-07] MEDS: LABETALOL 200 MG TAB PO SCH ×2 (08:34→22:07)
[2018-02-07] MEDS ORDERED: PANTOPRAZOLE 40 MG/10 ML VIAL IV SCH (09:00)
--- NOTE | 2018-02-07 09:19 | XR ---
EXAMINATION TYPE: XR chest 1V portable DATE OF EXAM: 02/07/2018 COMPARISON: Prior chest 02/07/2018 HISTORY: Shortness of breath TECHNIQUE: Single frontal view of the chest is obtained. FINDINGS: Similar findings. Patient is rotated. Heart remains enlarged. Bibasilar increased density persists. No evident pneumothorax. Central vascularity is prominent. IMPRESSION: Correlate for volume overload, congestive heart failure. Follow-up recommended. There ar e associated effusions.
--- NOTE | 2018-02-07 09:46 | ECHOF ---
Referral Reason:chest pain, widened mediastinum MEASUREMENTS -------- HEIGHT: 177.8 cm WEIGHT: 81.2 kg BP: RVIDd: 2.6 cm (< 3.3) IVSd: 1.6 cm (0.6 - 1.1) LVIDd: 3.9 cm (3.9 - 5.3) LVPWd: 1.2 cm (0.6 - 1.1) IVSs: 2.0 cm LVIDs: 2.5 cm LVPWs: 1.7 cm Ao Diam: 3.9 cm (2.0 - 3.7) AV Cusp: 2.5 cm (1.5 - 2.6) LA Diam: 3.1 cm (2.7 - 3.8) MV EXCURSION: 10.759 mm (> 18.000) MV EF SLOPE: 101 mm/s (70 - 150) EPSS: 0.8 cm MV E Jean: 1.05 m/s MV DecT: 99 ms MV A Jean: 0.86 m/s MV E/A Ratio: 1.22 RAP: 5.00 mmHg RVSP: 19.39 mmHg FINDINGS -------- Sinus rhythm. This was a technically good study. The left ventricular size is normal. There is moderate concentric left ventricular hypertrophy. O verall left ventricular systolic function is low-normal with, an EF between 50 - 55 %. Mitral Doppl er inflow pattern suggests diastolic filling abnormality 23.70. The right ventricle is normal in size and function. The left atrium is normal in size. The right atrium is normal in size. Aortic valve is trileaflet and is mildly thickened. The mitral valve leaflets are mildly thickened. Mild mitral regurgitation is present. Mild tricuspid regurgitation present. The right ventricular systolic pressure, as measured by Doppl er, is 19.39mmHg. Pulmonic valve appears structurally normal. The aortic root is dilated measuring 3.9 cm There is a small, generalized pericardial effusion present. Large Pleural Effusion. CONCLUSIONS -------- 1. Sinus rhythm. 2. This was a technically good study. 3. The left ventricular size is normal. 4. There is moderate concentric left ventricular hypertrophy. 5. Overall left ventricular systolic function is low-normal with, an EF between 50 - 55 %. 6. Mitral Doppler inflow pattern suggest diastolic filling abnormality 23.70. 7. The right ventricle is normal in size and function. 8. The left atrium is normal in size. 9. The right atrium is normal in size. 10. Aortic valve is trileaflet and is mildly thickened. 11. The mitral valve leaflets are mildly thickened. 12. Mild mitral regurgitation is present. 13. Mild tricuspid regurgitation present. 14. The right ventricular systolic pressure, as measured by Doppler, is 19.39mmHg. 15. Pulmonic valve appears structurally normal. 16. The aortic root is dilated measuring 3.9 cm 17. There is a small, generalized pericardial effusion present. 18. Large Pleural Effusion. AUTOMATION TECH: Samantha Posadas RDCS
[2018-02-07] MEDS: amLODIPine 5 MG TAB PO SCH ×2 (09:55→22:07)
[2018-02-07] MEDS: cloNIDine HCL 0.2 MG TAB PO SCH ×2 (09:55→22:07)
[2018-02-07 12:32] LABS: Glucose,Whole Blood 89 mg/dL (75-99)
[2018-02-07] MEDS: ACETAMINOPHEN TAB 325 MG TAB PO PRN (13:13)
[2018-02-07 14:01] LABS: Hepatitis BE Antibody POS (Negative); Hepatitis BE Antigen NEG (Negative)
--- NOTE | 2018-02-07 14:10 | P.PN ---
Subjective Progress Note Date: 02/07/18 67-year-old -[place] male patient who got transferred to the intensive care unit for hypertensive emergency situation. The patient was hospitalized for acute kidney injury on top of chronic renal failure. The patient has long history of diabetes mellitus, hepatitis B, hepatitis C, remote history of IVDA, chronic renal failure, stage III chronic kidney disease, hypertension, hyperlipidemia, COPD, and multiple admissions in the past for complications related to diabetes and DKA. He also has also a below-knee amputation on the right. He has peripheral neuropathy in his lower extremities bilaterally. He has issues with chronic pain. He has been incarcerated on various occasions. During this current ICU admission, the patient was transferred because of diaphoresis and chest pain. Was noted the patient's blood pressure was high with systolics above 170 and diastolic above 100. Chest x-ray showed pulmonary edema and some widening of the vascular pedicle. At that point there was concern of dissection yet the blood pressure in both upper extremities with equivalent. The patient had a stat echocardiogram that showed no evidence of any dissection or acute regurgitation. Chest x-ray was consistent with pulmonary edema. First set of cardiac enzyme was negative with troponin of 0.013. EKG does not showing any acute ST segment elevation or depression. The patient got moved to the intensive care unit. Currently is on Drip at 2 mg per hour. He also also on a combination of blood pressure medications including hydralazine IV, verapamil, lisinopril 20 mg by mouth daily, Lasix 40 mg by mouth daily and Trandate 200 mg by mouth twice a day. He is currently free of any chest pain. No known history of coronary artery disease although this is suspected. He is awake. He is alert. No neck pain. No jaw pain. No back pain at this point in time. His UA is indicating proteinuria with +2 protein being spilled and nephrology is ultimately is interested in doing a kidney biopsy at a later stage. On 02/07/2018, the patient is awake and alert and following commands and answering questions appropriately. No chest pain. No shortness of breath or chest x-ray shows improvement in the volume status. The patient had an MRA of the chest that didn't show any evidence of dissection. Still on clevidipine drip and the patient will be gradually weaned off as the patient was started also on clonidine, Norvasc, hydralazine, lisinopril for blood pressure control. Doing well. Hemodynamically stable. Still on 40 ng of Lasix. Creatinine is up to 3.7. The rest of the electrodes are all within normal limits. Urine drug screen came back positive for cocaine also. No encephalopathy. No chest pain for now. Objective - Vital Signs Vital signs: Vital Signs Temp 98.2 F 02/07/18 12:00 Pulse 83 02/07/18 13:00 Resp 18 02/07/18 13:00 BP 138/86 02/07/18 13:00 Pulse Ox 94 L 02/07/18 13:00 Intake & Output 02/06/18 02/07/18 02/07/18 18:59 06:59 18:59 Intake Total 303.900 576.233 620.267 Output Total 100 600 Balance 203.900 -23.767 620.267 Weight 72.2 kg 72.2 kg Intake: IV 80 70 0.9% NS 80 70 Intake, IV Titration 3.900 256.233 110.267 Amount Clevidipine Butyrate 25 3.900 156.233 10.267 mg In Empty Bag 1 bag @ 1 MG/HR 2 mls/hr IV .Q24H [facility] Rx#:[id number] Magnesium Sulfate-D5w Pmx 100 1 gm In Dextrose/Water 1 100ml.bag @ 100 mls/hr IVPB ONCE ONE Rx#: [id number] Sodium Chloride 0.9% 1, 100 000 ml @ 100 mls/hr IV . Q10H [facility] Rx#:[id number] Oral 300 240 440 Output: Urine 100 600 Other: Voiding Method Urinal Urinal Urinal # Voids 0 # Bowel Movements 0 - Exam Calm comfortable no acute distress.using accessory muscles of breathing Head exam was generally normal. There was no scleral icterus or corneal arcus. Mucous membranes were moist. Neck was supple and with jugular venous distension, thyromegaly, or carotid bruits. Carotids were easily palpable bilaterally. There was no adenopathy. There is positive jugular venous distention Lungs sounds are diminished bilaterally along with bibasilar crackles, no wheezes or rhonchi. Cardiac exam revealed the PMI to be normally situated and sized. The rhythm was regular and no extrasystoles were noted during several minutes of auscultation. The first and second heart sounds were normal and physiologic splitting of the second heart sound was noted. There were no murmurs, rubs, clicks, or gallops. Abdominal exam revealed normal bowel sounds. The abdomen was soft, non-tender, and without masses, organomegaly, or appreciable enlargement of the abdominal aorta. Examination of the extremities revealed easily palpable radial, femoral and pedal pulses. There was no cyanosis, clubbing or edema. Neurologically awake and alert and there is no focal neurological deficit Psychiatric the patient is appropriate mood and affect - Labs CBC & Chem 7: 02/07/18 03:13 02/07/18 03:13 Labs: Abnormal Lab Results - Last 24 Hours (Table) 02/05/18 02/06/18 02/06/18 Range/Units 10:26 08:10 14:58 WBC 3.1 L (3.8-10.6) k/uL RBC 3.53 L (4.30-5.90) m/uL Hgb 10.4 L (13.0-17.5) gm/dL Hct 31.6 L (39.0-53.0) % Lymphocytes # 0.5 L (1.0-4.8) k/uL Sodium (137-145) mmol/L BUN (9-20) mg/dL Creatinine (0.66-1.25) mg/dL Glucose (74-99) mg/dL POC Glucose (mg/dL) (75-99) mg/dL Phosphorus (2.5-4.5) mg/dL CK-MB (CK-2) (0.0-2.4) ng/mL Urine Opiates Screen (NotDetected) Urine Cocaine Screen (NotDetected) Hepatitis Be Antibody POS H (Negative) HCV RNA Qual (PCR) DETECTED H (Not detected) 02/06/18 02/06/18 02/06/18 Range/Units 14:58 15:00 21:23 WBC (3.8-10.6) k/uL RBC (4.30-5.90) m/uL Hgb (13.0-17.5) gm/dL Hct (39.0-53.0) % Lymphocytes # (1.0-4.8) k/uL Sodium (137-145) mmol/L BUN 54 H (9-20) mg/dL Creatinine 3.32 H (0.66-1.25) mg/dL Glucose (74-99) mg/dL POC Glucose (mg/dL) 147 H (75-99) mg/dL Phosphorus (2.5-4.5) mg/dL CK-MB (CK-2) 3.7 H (0.0-2.4) ng/mL Urine Opiates Screen (NotDetected) Urine Cocaine Screen (NotDetected) Hepatitis Be Antibody (Negative) HCV RNA Qual (PCR) (Not detected) 02/06/18 02/07/18 02/07/18 Range/Units 23:00 03:11 03:13 WBC (3.8-10.6) k/uL RBC 3.20 L (4.30-5.90) m/uL Hgb 9.4 L (13.0-17.5) gm/dL Hct 29.3 L (39.0-53.0) % Lymphocytes # 0.4 L (1.0-4.8) k/uL Sodium (137-145) mmol/L BUN (9-20) mg/dL Creatinine (0.66-1.25) mg/dL Glucose (74-99) mg/dL POC Glucose (mg/dL) 134 H (75-99) mg/dL Phosphorus (2.5-4.5) mg/dL CK-MB (CK-2) (0.0-2.4) ng/mL Urine Opiates Screen Detected H (NotDetected) Urine Cocaine Screen Detected H (NotDetected) Hepatitis Be Antibody (Negative) HCV RNA Qual (PCR) (Not detected) 02/07/18 02/07/18 Range/Units 03:13 07:17 WBC (3.8-10.6) k/uL RBC (4.30-5.90) m/uL Hgb (13.0-17.5) gm/dL Hct (39.0-53.0) % Lymphocytes # (1.0-4.8) k/uL Sodium 136 L (137-145) mmol/L BUN 57 H (9-20) mg/dL Creatinine 3.71 H (0.66-1.25) mg/dL Glucose 154 H (74-99) mg/dL POC Glucose (mg/dL) 167 H (75-99) mg/dL Phosphorus 5.5 H (2.5-4.5) mg/dL CK-MB (CK-2) (0.0-2.4) ng/mL Urine Opiates Screen (NotDetected) Urine Cocaine Screen (NotDetected) Hepatitis Be Antibody (Negative) HCV RNA Qual (PCR) (Not detected) Assessment and Plan Plan: Assessment 1 acute hypertensive emergency, transferred to the intensive care unit for blood pressure control. Blood pressure control is improved with clevidipine drip and there adjustment of blood pressure medications been done. No evidence of dissection based on the MRI/MRA of the chest. Echocardiogram of the heart was done that showed hypertensive heart disease with moderate concentric left ventricular hypertrophy and an ejection fraction of 50-55%. No other abnormalities in the valves was noted. The patient's history of any chest pain. No evidence of any shortness of breath. His daughter status improving. 2 acute kidney injury on top of chronic renal failure. The patient is known to have stage III chronic kidney disease. The patient has proteinuria and underlying diabetic nephropathy or any other chronic nephropathy related to hepatitis B and hepatitis C cannot be completely ruled out. The patient needs a kidney biopsy at a later stage. Nephrology is on the case. 3 peripheral vascular disease with previous right below knee amputation 2014 4 COPD 5 diabetes mellitus with insulin dependence, essentially poorly controlled with diabetic complications including neuropathy, retinopathy and possible nephropathy 6 hyperlipidemia 7 hypertension 8 hepatitis B and hepatitis C viral infection of the liver with chronic liver disease 9 BPH 10 previous hospitalizations for DKA 11 previous history of brain concussion 12 gout 13 previous history of DVT, currently on no anticoagulation 14 previous history of fractures on the left 15 previous history of chronic back pain and sciatica and degenerative arthritis 16 anxiety and depression 17 remote history of IVDA 18 smoker 19 chronic anemia, anemia of chronic disease 20 positive cocaine use Plan Continue current care. Wean off clevidipine drip. He is advised rest of the oral meds for blood pressure control. Cardiology is on the case. Nephrology is on the case. Monitor renal function. The patient can be transferred to a medical floor once off the clevidipine infusion.
--- NOTE | 2018-02-07 14:55 | CONS ---
CONSULTATION Mr. Soren Mireles is a 67-year-old gentleman with advanced renal failure who was hospitalized with multiple medical problems including an acute on chronic renal failure with acute kidney injury. While he was here in the hospital, he developed an episode of hypertension and complained of chest discomfort and therefore he was transferred to the intensive care unit. After arrival in the ICU, he continued to have chest pain. Troponins are normal and EKG did not reveal any ST-segment changes to indicate ischemia. He went on to have an a MRI which revealed that there was no evidence of any aortic dissection or aneurysm. I was asked to see him for his chest pain. He has multiple comorbid conditions including peripheral arterial disease with a right below- knee amputation as well as peripheral neuropathy. On questioning, he denies any chest discomfort at this time. He has had chest pain yesterday, but he indicates to me the pain was not much and he feels well this morning. At the time of my evaluation, he is quite asymptomatic and the blood pressure has improved. Patient is on intravenous Cleviprex for BP control. PAST MEDICAL HISTORY: Remarkable for advanced renal failure, type 2 diabetes, hypertension, hyperlipidemia, peripheral artery disease with right below-knee amputation in 2014. He has history of remote use of IV drug abuse as well. Please refer to the detailed information in the chart. SOCIAL HISTORY: Patient currently smokes, uses recreational drugs, but does not drink alcohol. MEDICATIONS: At home include simvastatin, Flomax, Lantus insulin, Glucotrol, lisinopril, Aldactone, verapamil. ALLERGIES: None. EXAMINATION: Blood pressure this morning was 138/90, pulse rate is about 80 per minute. HEENT: Unremarkable. Fundus was not examined by me. Neck is supple. There is JVD of 1 cm. No carotid bruit. Heart exam reveals S1, S2 with a short systolic murmur at the base. Lungs revealed diminished air entry both bases. Abdomen is soft, nontender. Lower extremities reveal diminished pulses. Below- knee amputation on the right is noted. EKG revealed a sinus mechanism with nonspecific ST-T changes. No acute findings. LABORATORY DATA: Reveals unremarkable troponins. Echocardiogram revealed ejection fraction in the 50-55 percent range without significant pulmonary hypertension. IMPRESSION: 1. Chest pain is probably atypical. 2. Accelerated hypertension which has resolved. Patient's blood pressure is now better controlled. 3. Advanced renal failure. 4. History of multiple comorbid conditions. RECOMMENDATIONS: I am recommending that I will repeat another echo to reassess LV function. I am also going to recommend a troponin level. Additionally. In view of hyperkalemia, I will hold Aldactone. I will discontinue verapamil, add Norvasc 5 mg b.i.d. and clonidine 0.2 mg b.i.d. and wean off Cleviprex. We will continue labetalol as advised by the hospitalist. Thank you very much for the consult. YANET / IJN: [id number] /
--- NOTE | 2018-02-07 15:51 | P.PN ---
Subjective Progress Note Date: 02/07/18 The patient seen and examined at the bedside. He notes feeling much better and hasn't had chest pain since yesterday. He further denied any episodes of indigestion, SOB, fever, chills, nausea, vomiting, abdominal pain, or LE swelling. The patient's Clevidpine drip was weaned off and he was started on Clonidine and Norvasc. Objective - Vital Signs Vital signs: Vital Signs Temp 98.2 F 02/07/18 12:00 Pulse 82 02/07/18 14:00 Resp 22 02/07/18 14:00 BP 136/84 02/07/18 14:00 Pulse Ox 94 L 02/07/18 14:00 Intake & Output 02/06/18 02/07/18 02/07/18 18:59 06:59 18:59 Intake Total 303.900 576.233 690.267 Output Total 100 600 50 Balance 203.900 -23.767 640.267 Weight 72.2 kg 72.2 kg Intake: IV 80 80 0.9% NS 80 80 Intake, IV Titration 3.900 256.233 110.267 Amount Clevidipine Butyrate 25 3.900 156.233 10.267 mg In Empty Bag 1 bag @ 1 MG/HR 2 mls/hr IV .Q24H [facility] Rx#:[id number] Magnesium Sulfate-D5w Pmx 100 1 gm In Dextrose/Water 1 100ml.bag @ 100 mls/hr IVPB ONCE ONE Rx#: [id number] Sodium Chloride 0.9% 1, 100 000 ml @ 100 mls/hr IV . Q10H [facility] Rx#:[id number] Oral 300 240 500 Output: Urine 100 600 50 Other: Voiding Method Urinal Urinal Urinal # Voids 1 # Bowel Movements 0 - Exam General: Awake, alert, in no acute distress HEENT: NC/AT, anicteric sclerae, moist conjunctiva, no lid-lag, PERRLA, oropharynx clear, no erythema, exudates Cardiovascular: S1/S2 wnl, no murmurs, rubs, or gallops Lungs: Mild bibasilar crackles, normal respiratory effort, no accessory muscle use Abdominal: Soft, nontender, non-distended, no guarding, rebound, or rigidity, normoactive bowel sounds Skin: Warm, dry Extremities: R BKA, L foot swelling improved, w/ no erythema, warmth, or tenderness. No calf tenderness noted. Psychiatric: Alert and oriented to person, place and time, appropriate affect, Intact judgment Neuro: CN II-XI grossly intact, sensation to light touch grossly present throughout, no focal sensory deficits - Labs CBC & Chem 7: 02/07/18 03:13 02/07/18 03:13 Labs: Abnormal Lab Results - Last 24 Hours (Table) 02/05/18 02/06/18 02/06/18 Range/Units 10:26 08:10 14:58 WBC 3.1 L (3.8-10.6) k/uL RBC 3.53 L (4.30-5.90) m/uL Hgb 10.4 L (13.0-17.5) gm/dL Hct 31.6 L (39.0-53.0) % Lymphocytes # 0.5 L (1.0-4.8) k/uL Sodium (137-145) mmol/L BUN (9-20) mg/dL Creatinine (0.66-1.25) mg/dL Glucose (74-99) mg/dL POC Glucose (mg/dL) (75-99) mg/dL Phosphorus (2.5-4.5) mg/dL CK-MB (CK-2) (0.0-2.4) ng/mL Urine Opiates Screen (NotDetected) Urine Cocaine Screen (NotDetected) Hepatitis Be Antibody POS H (Negative) HCV RNA Qual (PCR) DETECTED H (Not detected) 02/06/18 02/06/18 02/06/18 Range/Units 14:58 15:00 21:23 WBC (3.8-10.6) k/uL RBC (4.30-5.90) m/uL Hgb (13.0-17.5) gm/dL Hct (39.0-53.0) % Lymphocytes # (1.0-4.8) k/uL Sodium (137-145) mmol/L BUN 54 H (9-20) mg/dL Creatinine 3.32 H (0.66-1.25) mg/dL Glucose (74-99) mg/dL POC Glucose (mg/dL) 147 H (75-99) mg/dL Phosphorus (2.5-4.5) mg/dL CK-MB (CK-2) 3.7 H (0.0-2.4) ng/mL Urine Opiates Screen (NotDetected) Urine Cocaine Screen (NotDetected) Hepatitis Be Antibody (Negative) HCV RNA Qual (PCR) (Not detected) 02/06/18 02/07/18 02/07/18 Range/Units 23:00 03:11 03:13 WBC (3.8-10.6) k/uL RBC 3.20 L (4.30-5.90) m/uL Hgb 9.4 L (13.0-17.5) gm/dL Hct 29.3 L (39.0-53.0) % Lymphocytes # 0.4 L (1.0-4.8) k/uL Sodium (137-145) mmol/L BUN (9-20) mg/dL Creatinine (0.66-1.25) mg/dL Glucose (74-99) mg/dL POC Glucose (mg/dL) 134 H (75-99) mg/dL Phosphorus (2.5-4.5) mg/dL CK-MB (CK-2) (0.0-2.4) ng/mL Urine Opiates Screen Detected H (NotDetected) Urine Cocaine Screen Detected H (NotDetected) Hepatitis Be Antibody (Negative) HCV RNA Qual (PCR) (Not detected) 02/07/18 02/07/18 Range/Units 03:13 07:17 WBC (3.8-10.6) k/uL RBC (4.30-5.90) m/uL Hgb (13.0-17.5) gm/dL Hct (39.0-53.0) % Lymphocytes # (1.0-4.8) k/uL Sodium 136 L (137-145) mmol/L BUN 57 H (9-20) mg/dL Creatinine 3.71 H (0.66-1.25) mg/dL Glucose 154 H (74-99) mg/dL POC Glucose (mg/dL) 167 H (75-99) mg/dL Phosphorus 5.5 H (2.5-4.5) mg/dL CK-MB (CK-2) (0.0-2.4) ng/mL Urine Opiates Screen (NotDetected) Urine Cocaine Screen (NotDetected) Hepatitis Be Antibody (Negative) HCV RNA Qual (PCR) (Not detected) Assessment and Plan Plan: Hypertensive emergency, now resolved - Patient weaned off the Clavidepine drip. Currently on Norvasc 5 mg, Clonidine 0.2 mg PO bid, Labetalol 200 mg po BID, Lisinopril 20 mg po qd, and Lasix 40 mg PO qd. Spirinolactone DCed. - Cardiology recs appreciated - MRA negative for dissection. Echocardiogram w/ LVH and EF 50-55% - Patient to be transferred to Medicine Floor GOKUL on CKD stage III, unknown etiology - Patient will undergo kidney biopsy to evaluate for GN - C/w Lasix 40 mg po qd for now - C/w Sodium bicarb 650 mg qd Hepatitis B Surface Ag positive, likely chronic Hep B - GI consulted, recs appreciated Chronic Hep C - HCV Ab and HCV viral RNA PCR positive Constipation - C/w Colace PO bid prn BPH - C/w Flomax Chronic anemia - Iron studies consistent w/ chronic disease anemia LLE edema, likely secondary to diastolic CHF - Lower extremity duplex negative for DVT - Echocardiogram showing severe concentric LVH - C/w Lasix 40 mg po qd L foot pain - Likely secondary to overuse. The patient is homeless and walking around with bare feet often throughout the day Poorly controlled DM - A1c 10.3 - C/w Lantus 17 U bid DVT/GI prophyl. - Heparin Subq q8h - No indication for GI prophylaxis Time with Patient: Greater than 30
--- NOTE | 2018-02-07 16:25 | PN ---
PROGRESS NOTE Patient is seen for followup for hypertension, acute kidney injury. His hepatitis C serologies came back positive with the hep C RNA that was detected. The patient was transferred to the ICU as he was significantly short of breath and volume overloaded. His blood pressure is improved. He had been on Cleviprex drip which is now discontinued. Systolic blood pressure did dip into 102 and 106 mmHg this morning. The drip is now discontinued. Overall, patient states he is feeling better. EXAMINATION: On examination this morning blood pressure was 121/80, heart rate of 80 per minute. He is afebrile. Examination of the heart: S1, S2. Examination of the lungs: Decreased breath sounds at the bases. Abdomen is soft, nontender. Exam of lower extremities shows no evidence of edema. The patient has an right BKA. SHEEP SHEARER exam is otherwise grossly intact. LABS: Sodium of 136, potassium 5.1, BUN 57, serum creatinine 3.7 mg/dL. Hemoglobin of 9.4 g/dL. ASSESSMENT: 1. Acute kidney injury. Rule out underlying GN, possible MP GN with positive hepatitis C viral RNA. The patient will be scheduled for a kidney biopsy. Hopefully, this can be done by Saturday. 2. Uncontrolled hypertension. The patient's urine drug screen did come back positive for cocaine, which definitely added to the uncontrolled hypertension. Currently volume status is significantly improved. I will continue with the Lasix as p.o. daily. We need to avoid significant drop in the systolic blood pressure. The Cleviprex drip is currently off. The patient is maintained on clonidine. I will continue with Zestril as well. 3. Metabolic acidosis maintained on oral sodium bicarb. PLAN: Proceed with kidney biopsy scheduled with Interventional Radiology for Saturday. Repeat labs tomorrow. MMODL / IJN: [id number] /
[2018-02-07 17:08] LABS: Glucose,Whole Blood 88 mg/dL (75-99)
[2018-02-07] MEDS: PANTOPRAZOLE 40 MG TABLET PO SCH (18:34)
[2018-02-07 20:37] LABS: Glucose,Whole Blood 121 mg/dL (75-99)
[2018-02-07] MEDS: DOCUSATE 100 MG CAP PO PRN (22:07)
[2018-02-07] MEDS: ATORVASTATIN 10 MG TAB PO SCH (22:07)
[2018-02-08] MEDS: HEPARIN SODIUM,PORCINE 5,000 UNIT/ML 1 ML VIAL SQ SCH ×3 (01:00→18:05)
[2018-02-08 05:25] LABS: Basophils % (A) 0 %; Eosinophils # (A) 0.1 k/uL (0-0.7); Eosinophils % (A) 3 %; HCT 25.3 % (39.0-53.0); HGB 8.3 gm/dL (13.0-17.5); Lymphocytes # (A) 0.7 k/uL (1.0-4.8); Lymphocytes % (A) 21 %; MCH 30.4 pg (25.0-35.0); MCHC 32.8 g/dL (31.0-37.0); MCV 92.7 fL (80.0-100.0); Mean Platelet Volume 7.5; Monocytes # (A) 0.4 k/uL (0-1.0); Monocytes % (A) 12 %; Neutrophils % (A) 61 %; Platelet Count 200 k/uL (150-450); RBC 2.73 m/uL (4.30-5.90); RDW 13.9 % (11.5-15.5); WBC 3.3 k/uL (3.8-10.6)
[2018-02-08 05:38] LABS: Calcium 8.3 mg/dL (8.4-10.2); Magnesium 2.2 mg/dL (1.6-2.3); Phosphorus 6.8 mg/dL (2.5-4.5); Potassium 5.2 mmol/L (3.5-5.1)
--- NOTE | 2018-02-08 06:57 | XR ---
EXAMINATION TYPE: XR chest 1V portable DATE OF EXAM: 02/08/2018 HISTORY: SOB. REFERENCE: Previous study dated 02/07/2018. FINDINGS: There is a worsening opacity at the right lung base. There continues to be left basilar air space disease. There is a small left effusion. Pulmonary vasculature has improved. The heart is enlar ged. IMPRESSION: 1. WORSENING RIGHT BASILAR OPACITY. 2. IMPROVED VOLUME STATUS. 3. LEFT BASILAR AIRSPACE DISEASE. 4. SMALL LEFT EFFUSION.
[2018-02-08 07:20] LABS: Glucose,Whole Blood 71 mg/dL (75-99)
--- NOTE | 2018-02-08 09:44 | P.PN ---
Subjective Progress Note Date: 02/08/18 67-year-old -[place] male patient who got transferred to the intensive care unit for hypertensive emergency situation. The patient was hospitalized for acute kidney injury on top of chronic renal failure. The patient has long history of diabetes mellitus, hepatitis B, hepatitis C, remote history of IVDA, chronic renal failure, stage III chronic kidney disease, hypertension, hyperlipidemia, COPD, and multiple admissions in the past for complications related to diabetes and DKA. He also has also a below-knee amputation on the right. He has peripheral neuropathy in his lower extremities bilaterally. He has issues with chronic pain. He has been incarcerated on various occasions. During this current ICU admission, the patient was transferred because of diaphoresis and chest pain. Was noted the patient's blood pressure was high with systolics above 170 and diastolic above 100. Chest x-ray showed pulmonary edema and some widening of the vascular pedicle. At that point there was concern of dissection yet the blood pressure in both upper extremities with equivalent. The patient had a stat echocardiogram that showed no evidence of any dissection or acute regurgitation. Chest x-ray was consistent with pulmonary edema. First set of cardiac enzyme was negative with troponin of 0.013. EKG does not showing any acute ST segment elevation or depression. The patient got moved to the intensive care unit. Currently is on Drip at 2 mg per hour. He also also on a combination of blood pressure medications including hydralazine IV, verapamil, lisinopril 20 mg by mouth daily, Lasix 40 mg by mouth daily and Trandate 200 mg by mouth twice a day. He is currently free of any chest pain. No known history of coronary artery disease although this is suspected. He is awake. He is alert. No neck pain. No jaw pain. No back pain at this point in time. His UA is indicating proteinuria with +2 protein being spilled and nephrology is ultimately is interested in doing a kidney biopsy at a later stage. On 02/07/2018, the patient is awake and alert and following commands and answering questions appropriately. No chest pain. No shortness of breath or chest x-ray shows improvement in the volume status. The patient had an MRA of the chest that didn't show any evidence of dissection. Still on clevidipine drip and the patient will be gradually weaned off as the patient was started also on clonidine, Norvasc, hydralazine, lisinopril for blood pressure control. Doing well. Hemodynamically stable. Still on 40 ng of Lasix. Creatinine is up to 3.7. The rest of the electrodes are all within normal limits. Urine drug screen came back positive for cocaine also. No encephalopathy. No chest pain for now. On 02/08/2018, patient is awake alert and hemodynamically stable. Blood pressure remains under good control. Unfortunately his renal functions progressively getting worse in the creatinine today is up to 4.1. The patient is looking for a kidney biopsy at a later stage. I will discuss the possibility of stopping the Lasix and day BETTY inhibitor on this patient in view of his progressive worsening of the renal function. The patient otherwise shows no signs of any volume overload. He is on room air oxygen pH of 6 and shows small bilateral pleural effusions. No major edema in lower extremities. No metabolic acidosis. No altered mentation. He is a selective overflow here in the intensive care unit. Objective - Vital Signs Vital signs: Vital Signs Temp 98.2 F 02/07/18 12:00 Pulse 75 02/08/18 05:00 Resp 14 02/08/18 05:45 BP 150/88 02/08/18 05:00 Pulse Ox 94 L 02/07/18 18:00 Intake & Output 02/07/18 02/08/18 02/08/18 18:59 06:59 18:59 Intake Total 1210.267 250 Output Total 850 480 Balance 360.267 -230 Weight 72.2 kg 72.9 kg Intake: IV 120 10 0.9% NS 120 10 Intake, IV Titration 110.267 Amount Clevidipine Butyrate 25 10.267 mg In Empty Bag 1 bag @ 1 MG/HR 2 mls/hr IV .Q24H COUNT INCLUDES THE [facility] Rx#:[id number] Magnesium Sulfate-D5w Pmx 100 1 gm In Dextrose/Water 1 100ml.bag @ 100 mls/hr IVPB ONCE ONE Rx#: [id number] Oral 980 240 Output: Urine 850 480 Straight 400 Other: Voiding Method Urinal Urinal # Voids 0 # Bowel Movements 0 - Exam Calm comfortable no acute distress.using accessory muscles of breathing Head exam was generally normal. There was no scleral icterus or corneal arcus. Mucous membranes were moist. Neck was supple and with jugular venous distension, thyromegaly, or carotid bruits. Carotids were easily palpable bilaterally. There was no adenopathy. There is positive jugular venous distention Lungs sounds are diminished bilaterally along with bibasilar crackles, no wheezes or rhonchi. Cardiac exam revealed the PMI to be normally situated and sized. The rhythm was regular and no extrasystoles were noted during several minutes of auscultation. The first and second heart sounds were normal and physiologic splitting of the second heart sound was noted. There were no murmurs, rubs, clicks, or gallops. Abdominal exam revealed normal bowel sounds. The abdomen was soft, non-tender, and without masses, organomegaly, or appreciable enlargement of the abdominal aorta. Examination of the extremities revealed easily palpable radial, femoral and pedal pulses. There was no cyanosis, clubbing or edema. Neurologically awake and alert and there is no focal neurological deficit Psychiatric the patient is appropriate mood and affect - Labs CBC & Chem 7: 02/08/18 04:19 02/08/18 04:19 Labs: Abnormal Lab Results - Last 24 Hours (Table) 02/06/18 02/07/18 02/08/18 Range/Units 08:10 20:30 04:19 WBC 3.3 L (3.8-10.6) k/uL RBC 2.73 L (4.30-5.90) m/uL Hgb 8.3 L (13.0-17.5) gm/dL Hct 25.3 L (39.0-53.0) % Lymphocytes # 0.7 L (1.0-4.8) k/uL Sodium (137-145) mmol/L Potassium (3.5-5.1) mmol/L Carbon Dioxide (22-30) mmol/L BUN (9-20) mg/dL Creatinine (0.66-1.25) mg/dL POC Glucose (mg/dL) 121 H (75-99) mg/dL Calcium (8.4-10.2) mg/dL Phosphorus (2.5-4.5) mg/dL Hepatitis Be Antibody POS H (Negative) 02/08/18 02/08/18 Range/Units 04:19 07:19 WBC (3.8-10.6) k/uL RBC (4.30-5.90) m/uL Hgb (13.0-17.5) gm/dL Hct (39.0-53.0) % Lymphocytes # (1.0-4.8) k/uL Sodium 133 L (137-145) mmol/L Potassium 5.2 H (3.5-5.1) mmol/L Carbon Dioxide 21 L (22-30) mmol/L BUN 64 H (9-20) mg/dL Creatinine 4.19 H (0.66-1.25) mg/dL POC Glucose (mg/dL) 71 L (75-99) mg/dL Calcium 8.3 L (8.4-10.2) mg/dL Phosphorus 6.8 H (2.5-4.5) mg/dL Hepatitis Be Antibody (Negative) Microbiology - Last 24 Hours (Table) 02/07/18 03:13 Blood Culture - Preliminary Blood No Growth after 24 hours 02/06/18 21:48 Blood Culture - Preliminary Blood No Growth after 24 hours Assessment and Plan Plan: Assessment 1 acute hypertensive emergency, recovered and the patient's blood pressures under better control. The patient has an underlying hypertensive heart disease. 2 acute kidney injury on top of chronic renal failure. The patient is known to have stage III chronic kidney disease. The patient has proteinuria and underlying diabetic nephropathy or any other chronic nephropathy related to hepatitis B and hepatitis C cannot be completely ruled out. Glomerulonephritis is also being entertained. The patient will need a kidney biopsy. We'll discuss the progressive worsening in the renal function with nephrology. Creatinine is up to 4.1. No signs of any fluid overload or metabolic acidosis or encephalopathy at this point in time. 3 peripheral vascular disease with previous right below knee amputation 2014 4 COPD 5 diabetes mellitus with insulin dependence, essentially poorly controlled with diabetic complications including neuropathy, retinopathy and possible nephropathy 6 hyperlipidemia 7 hypertension 8 hepatitis B and hepatitis C viral infection of the liver with chronic liver disease 9 BPH 10 previous hospitalizations for DKA 11 previous history of brain concussion 12 gout 13 previous history of DVT, currently on no anticoagulation 14 previous history of fractures on the left 15 previous history of chronic back pain and sciatica and degenerative arthritis 16 anxiety and depression 17 remote history of IVDA 18 smoker 19 chronic anemia, anemia of chronic disease 20 positive cocaine use Plan Discussed the possibility of stopping Lasix and betty inhibitors in this patient with nephrology. Monitor electrodes. Monitor renal function. Monitor urine output. The patient is produced approximately 700 mL of urine output for yesterday and 900 the day before. He is still producing adequate amount of urine output. Kidney biopsy per nephrology. We'll continue to follow. Is a selective overflow. No active pulmonary or critical care issues at this point in time.
[2018-02-08] MEDS: INSULIN ASPART 100 UNIT/ML 1 ML 10 ML VIAL SQ SCH ×4 (09:55→21:28)
[2018-02-08] MEDS: PANTOPRAZOLE 40 MG TABLET PO SCH ×2 (09:55→18:03)
[2018-02-08] MEDS: amLODIPine 5 MG TAB PO SCH ×2 (09:56→21:28)
[2018-02-08] MEDS: FUROSEMIDE 40 MG TAB PO SCH (09:56)
[2018-02-08] MEDS: cloNIDine HCL 0.2 MG TAB PO SCH (09:56)
[2018-02-08] MEDS: GABAPENTIN 100 MG CAP PO SCH ×3 (09:56→21:28)
[2018-02-08] MEDS: LISINOPRIL 20 MG TAB PO SCH ×2 (09:57→10:44)
[2018-02-08] MEDS: LABETALOL 200 MG TAB PO SCH ×2 (09:57→22:40)
[2018-02-08] MEDS: INSULIN DETEMIR 100 UNIT/ML 10 ML VIAL SQ SCH (09:57)
[2018-02-08] MEDS: NICOTINE 14MG/24HR PATCH TRANSDERM SCH (09:57)
[2018-02-08] MEDS: TAMSULOSIN 0.4 MG CAP.ER.24H PO SCH (09:58)
[2018-02-08] MEDS: SODIUM BICARBONATE TAB 650 MG TAB PO SCH (09:58)
--- NOTE | 2018-02-08 10:17 | PN ---
PROGRESS NOTE Mr. Mireles had accelerated hypertension, but blood pressure is better this morning. It is about 160. His a.m. medications have not yet been given. He has no further chest pain, is comfortable. He can be transferred to med/surg unit on the current oral regimen. Blood pressure is 160/70, pulse rate is 74 per minute. S1, S2 heard normally. Short systolic murmur noted. Lungs revealed decent air entry. Abdomen is soft. Lower extremity exam is unchanged. He does have a below-knee amputation. MMODL / IJN: [id number] /
[2018-02-08 12:24] LABS: Glucose,Whole Blood 142 mg/dL (75-99)
--- NOTE | 2018-02-08 12:57 | P.PN ---
Subjective The patient seen and examined at the bedside. He is free of active complaints and denying having any episodes of chest pain or SOB. He endorsed last using cocaine 10 days ago while at a homeless [facility] and vehemently denied using it since. He is otherwise denying fever, chills, abdominal pain, nausea, vomiting, or dizziness. Objective - Vital Signs Vital signs: Vital Signs Temp 98.2 F 02/07/18 12:00 Pulse 75 02/08/18 10:00 Resp 22 02/08/18 10:00 BP 160/95 02/08/18 10:00 Pulse Ox 92 L 02/08/18 10:00 Intake & Output 02/07/18 02/08/18 02/08/18 18:59 06:59 18:59 Intake Total 1210.267 250 Output Total 850 480 100 Balance 360.267 -230 -100 Weight 72.2 kg 72.9 kg Intake: IV 120 10 0.9% NS 120 10 Intake, IV Titration 110.267 Amount Clevidipine Butyrate 25 10.267 mg In Empty Bag 1 bag @ 1 MG/HR 2 mls/hr IV .Q24H [facility] Rx#:[id number] Magnesium Sulfate-D5w Pmx 100 1 gm In Dextrose/Water 1 100ml.bag @ 100 mls/hr IVPB ONCE ONE Rx#: [id number] Oral 980 240 Output: Urine 850 480 100 Straight 400 Other: Voiding Method Urinal Urinal Urinal # Voids 0 # Bowel Movements 0 - Exam General: Awake, alert, in no acute distress HEENT: NC/AT, anicteric sclerae, moist conjunctiva, no lid-lag, PERRLA, oropharynx clear, no erythema, exudates Cardiovascular: S1/S2 wnl, no murmurs, rubs, or gallops Lungs: Mild bibasilar crackles, normal respiratory effort, no accessory muscle use Abdominal: Soft, nontender, non-distended, no guarding, rebound, or rigidity, normoactive bowel sounds Skin: Warm, dry Extremities: R BKA, L foot swelling improved, w/ no erythema, warmth, or tenderness. No calf tenderness noted. Psychiatric: Alert and oriented to person, place and time, appropriate affect, Intact judgment Neuro: CN II-XI grossly intact, sensation to light touch grossly present throughout, no focal sensory deficits - Labs CBC & Chem 7: 02/08/18 04:19 02/08/18 04:19 Labs: Abnormal Lab Results - Last 24 Hours (Table) 02/06/18 02/07/18 02/08/18 Range/Units 08:10 20:30 04:19 WBC 3.3 L (3.8-10.6) k/uL RBC 2.73 L (4.30-5.90) m/uL Hgb 8.3 L (13.0-17.5) gm/dL Hct 25.3 L (39.0-53.0) % Lymphocytes # 0.7 L (1.0-4.8) k/uL Sodium (137-145) mmol/L Potassium (3.5-5.1) mmol/L Carbon Dioxide (22-30) mmol/L BUN (9-20) mg/dL Creatinine (0.66-1.25) mg/dL POC Glucose (mg/dL) 121 H (75-99) mg/dL Calcium (8.4-10.2) mg/dL Phosphorus (2.5-4.5) mg/dL Hepatitis Be Antibody POS H (Negative) 02/08/18 02/08/18 Range/Units 04:19 07:19 WBC (3.8-10.6) k/uL RBC (4.30-5.90) m/uL Hgb (13.0-17.5) gm/dL Hct (39.0-53.0) % Lymphocytes # (1.0-4.8) k/uL Sodium 133 L (137-145) mmol/L Potassium 5.2 H (3.5-5.1) mmol/L Carbon Dioxide 21 L (22-30) mmol/L BUN 64 H (9-20) mg/dL Creatinine 4.19 H (0.66-1.25) mg/dL POC Glucose (mg/dL) 71 L (75-99) mg/dL Calcium 8.3 L (8.4-10.2) mg/dL Phosphorus 6.8 H (2.5-4.5) mg/dL Hepatitis Be Antibody (Negative) Microbiology - Last 24 Hours (Table) 02/07/18 03:13 Blood Culture - Preliminary Blood No Growth after 24 hours 02/06/18 21:48 Blood Culture - Preliminary Blood No Growth after 24 hours Assessment and Plan Plan: Hypertension - In light of worsening GOKUL on CKD (Cr up to 4.19 and K 5.2), will hold off on BETTY-I and Furosemide. - C/w Norvasc 5 mg bid. Start Hydralazine 50 mg PO q8h. C/w Labetalol 200 mg po bid. GOKUL on CKD stage III, unknown etiology - Patient to undergo kidney biopsy to evaluate for GN on Saturday as per Nephrology - Lasix and BETTY-I DCed. Sodium bicarb DCed Poorly controlled DM - A1c 10.3 - Decrease Lantus to 10 U bid with sliding scale - In light of worsening GOKUL, patient's insulin requirements will be lower Chronic Hep B - GI consulted, recs appreciated. Will follow as outpatient for treatment options. Chronic Hep C - HCV Ab and HCV viral RNA PCR positive Constipation - C/w Colace PO bid prn BPH - C/w Flomax Chronic anemia - Iron studies consistent w/ chronic disease anemia DVT/GI prophyl. - Heparin Subq q8h - No indication for GI prophylaxis LLE edema, resolved L foot pain, resolved Time with Patient: Greater than 30
[2018-02-08] MEDS ORDERED: hydrALAZINE HCL 50 MG TAB PO SCH (13:00)
[2018-02-08] MEDS: hydrALAZINE HCL 50 MG TAB PO SCH ×2 (13:08→21:27)
[2018-02-08 17:09] LABS: Glucose,Whole Blood 178 mg/dL (75-99)
[2018-02-08] MEDS ORDERED: SODIUM POLYSTYRENE SULFONATE 15 GM/60 ML BOTTLE PO ONE (17:42)
[2018-02-08] MEDS: CALCIUM ACETATE 667 MG CAP PO SCH (18:05)
[2018-02-08] MEDS: MORPHINE ORAL SOLN 10 MG/5 ML CUP PO PRN ×2 (18:17→23:58)
[2018-02-08] MEDS ORDERED: INSULIN DETEMIR 100 UNIT/ML 10 ML VIAL SQ SCH (21:00)
[2018-02-08] MEDS: ATORVASTATIN 10 MG TAB PO SCH (21:28)
[2018-02-08 21:30] LABS: Glucose,Whole Blood 226 mg/dL (75-99)
--- NOTE | 2018-02-08 21:44 | PN ---
PROGRESS NOTE Patient is seen for followup for uncontrolled hypertension, acute kidney injury on top of chronic kidney disease. He was transferred to the ICU for volume overload and was diuresed. The patient also had uncontrolled hypertension and was maintained on Cleviprex drip. Blood pressure improved yesterday significantly and systolic blood pressure was down to 120s and occasionally 106 mmHg. The drips were discontinued. However, this morning, blood pressure has started to increase again. The patient has had good urine output. His renal function has deteriorated. He remains on BETTY inhibitors. EXAMINATION: This morning blood pressure was 153/95, heart rate 75 per minute. He is afebrile. Examination of the heart S1, S2. Examination of the lungs, bilateral breath sounds are heard. Abdomen is soft, nontender. Examination lower extremities shows no evidence of edema. Right BKA is noted. LABS: Reveal sodium 133, potassium 5.2, chloride 102, BUN 64, serum creatinine 4.19, hemoglobin of 8.3, phosphorus 6.8. ASSESSMENT: 1. Acute kidney injury with worsening renal function, most likely secondary to changes in the blood pressure with systolic as low as 106 yesterday. Currently, patient is nonoliguric. I will continue with 1 more dose of the BETTY inhibitors since blood pressure is again elevated. Patient will be scheduled for a kidney biopsy. We need to rule out underlying GN given the hematuria, proteinuria and positive hepatitis serologies. 2. Uncontrolled hypertension. This had improved. The blood pressure is now increasing again. Increase medications and we will add hydralazine and the patient will be monitored for volume status and diuretics will be restarted as given the salt and fluid retention with alpha blockers. 3. Mild hyperkalemia. Will hold the BETTY inhibitors from tomorrow. 4. Hyperphosphatemia associated with worsening renal failure. We will start phosphate binders. 5. Hepatitis C with HCV RNA positive state. 6. Anemia with no active bleeding noted. Iron saturation was adequate at 25% on 02/01/2018. PLAN: Increase medications given the increase in blood pressure again and will discontinue the BETTY inhibitor starting from tomorrow. I will give him his dose today as blood pressure is high. Monitor for hypervolemia since we will be starting hydralazine. Labetalol is at a very low dose. This will need to be increased if he remains hypertensive. We also need to schedule for kidney biopsy on Saturday. MMODL / IJN: [id number] /
[2018-02-09] MEDS: HEPARIN SODIUM,PORCINE 5,000 UNIT/ML 1 ML VIAL SQ SCH ×4 (00:13→23:58)
[2018-02-09 01:13] LABS: Glucose,Whole Blood 62 mg/dL (75-99)
[2018-02-09 01:45] LABS: Glucose,Whole Blood 51 mg/dL (75-99)
[2018-02-09 02:10] LABS: Glucose,Whole Blood 67 mg/dL (75-99)
[2018-02-09 03:17] LABS: Glucose,Whole Blood 98 mg/dL (75-99)
[2018-02-09] MEDS: cloNIDine HCL 0.2 MG TAB PO SCH (04:18)
[2018-02-09] MEDS: hydrALAZINE HCL 50 MG TAB PO SCH ×2 (05:30→12:36)
[2018-02-09] MEDS: MORPHINE ORAL SOLN 10 MG/5 ML CUP PO PRN (05:40)
[2018-02-09 06:56] LABS: Glucose,Whole Blood 152 mg/dL (75-99)
--- NOTE | 2018-02-09 07:02 | XR ---
EXAMINATION TYPE: XR chest 1V portable DATE OF EXAM: 02/09/2018 HISTORY: SOB. REFERENCE: Previous study dated 02/08/2018. FINDINGS: Heart size upper limits of normal. There is vascular congestion and subtle interstitial girish nge. There is left basilar airspace disease in the left-sided effusion. This has worsened somewhat fr om previous. Aeration at the right lung base has improved. IMPRESSION: 1. BORDERLINE CARDIOMEGALY. 2. VASCULAR CONGESTION AND MILD EDEMA. 3. BIBASILAR OPACITIES WORSE ON THE LEFT AND IMPROVED ON THE RIGHT. 4. SMALL LEFT EFFUSION.
[2018-02-09 07:32] LABS: Basophils % (A) 0 %; Eosinophils # (A) 0.1 k/uL (0-0.7); Eosinophils % (A) 2 %; HCT 28.8 % (39.0-53.0); Hypochromasia Slight; Lymphocytes # (A) 0.3 k/uL (1.0-4.8); Lymphocytes % (A) 7 %; MCH 29.1 pg (25.0-35.0); MCHC 31.4 g/dL (31.0-37.0); MCV 92.6 fL (80.0-100.0); Mean Platelet Volume 7.5; Monocytes # (A) 0.4 k/uL (0-1.0); Monocytes % (A) 9 %; Neutrophils # (A) 3.5 k/uL (1.3-7.7); Neutrophils % (A) 79 %; Platelet Count 229 k/uL (150-450); RBC 3.11 m/uL (4.30-5.90); RDW 13.8 % (11.5-15.5); WBC 4.5 k/uL (3.8-10.6)
[2018-02-09 07:45] LABS: Calcium 8.3 mg/dL (8.4-10.2); Magnesium 2.2 mg/dL (1.6-2.3); Phosphorus 5.3 mg/dL (2.5-4.5); Potassium 5.9 mmol/L (3.5-5.1)
[2018-02-09] MEDS ORDERED: SODIUM POLYSTYRENE SULFONATE 15 GM/60 ML BOTTLE PO STA ×2 (08:05→18:00)
[2018-02-09] MEDS: INSULIN ASPART 100 UNIT/ML 1 ML 10 ML VIAL SQ SCH ×4 (08:56→20:56)
[2018-02-09] MEDS: cloNIDine HCL 0.1 MG TAB PO SCH ×2 (08:59→21:19)
[2018-02-09] MEDS: GABAPENTIN 100 MG CAP PO SCH ×3 (09:00→22:03)
[2018-02-09] MEDS: NICOTINE 14MG/24HR PATCH TRANSDERM SCH (09:00)
[2018-02-09] MEDS: PANTOPRAZOLE 40 MG TABLET PO SCH ×2 (09:00→18:44)
[2018-02-09] MEDS: TAMSULOSIN 0.4 MG CAP.ER.24H PO SCH (09:00)
[2018-02-09] MEDS: SODIUM BICARBONATE TAB 650 MG TAB PO SCH (09:00)
[2018-02-09] MEDS: amLODIPine 5 MG TAB PO SCH ×2 (09:00→21:18)
[2018-02-09] MEDS: LABETALOL 200 MG TAB PO SCH ×2 (09:02→21:19)
--- NOTE | 2018-02-09 09:40 | P.PN ---
Subjective Progress Note Date: 02/09/18 The patient seen and examined at the bedside. He is free of active complaints and denying having any episodes of chest pain or SOB. He is otherwise denying fever, chills, abdominal pain, nausea, vomiting, or dizziness. Objective - Vital Signs Vital signs: Vital Signs Temp 98.4 F 02/09/18 07:36 Pulse 87 02/09/18 07:36 Resp 16 02/09/18 07:36 BP 161/84 02/09/18 07:36 Pulse Ox 100 02/09/18 07:36 Intake & Output 02/08/18 02/09/18 02/09/18 18:59 06:59 18:59 Intake Total 750 450 Output Total 550 930 Balance 200 -480 Intake: Oral 750 450 Output: Urine 550 930 Other: Voiding Method Urinal Toilet Urinal # Voids 140 - Exam General: Awake, alert, in no acute distress HEENT: NC/AT, anicteric sclerae, moist conjunctiva, no lid-lag, PERRLA, oropharynx clear, no erythema, exudates Cardiovascular: S1/S2 wnl, no murmurs, rubs, or gallops Lungs: CTA B/L, normal respiratory effort, no accessory muscle use Abdominal: Soft, nontender, non-distended, no guarding, rebound, or rigidity, normoactive bowel sounds Skin: Warm, dry Extremities: R BKA, L foot swelling improved, w/ no erythema, warmth, or tenderness. No calf tenderness noted. Psychiatric: Alert and oriented to person, place and time, appropriate affect, Intact judgment Neuro: CN II-XI grossly intact, sensation to light touch grossly present throughout, no focal sensory deficits - Labs CBC & Chem 7: 02/09/18 06:06 02/09/18 06:06 Labs: Abnormal Lab Results - Last 24 Hours (Table) 02/08/18 02/08/18 02/08/18 Range/Units 12:23 17:06 21:24 RBC (4.30-5.90) m/uL Hgb (13.0-17.5) gm/dL Hct (39.0-53.0) % Lymphocytes # (1.0-4.8) k/uL Potassium (3.5-5.1) mmol/L BUN (9-20) mg/dL Creatinine (0.66-1.25) mg/dL Glucose (74-99) mg/dL POC Glucose (mg/dL) 142 H 178 H 226 H (75-99) mg/dL Calcium (8.4-10.2) mg/dL Phosphorus (2.5-4.5) mg/dL 02/09/18 02/09/18 02/09/18 Range/Units 01:08 01:37 02:08 RBC (4.30-5.90) m/uL Hgb (13.0-17.5) gm/dL Hct (39.0-53.0) % Lymphocytes # (1.0-4.8) k/uL Potassium (3.5-5.1) mmol/L BUN (9-20) mg/dL Creatinine (0.66-1.25) mg/dL Glucose (74-99) mg/dL POC Glucose (mg/dL) 62 L 51 L 67 L (75-99) mg/dL Calcium (8.4-10.2) mg/dL Phosphorus (2.5-4.5) mg/dL 02/09/18 02/09/18 02/09/18 Range/Units 06:06 06:06 06:54 RBC 3.11 L (4.30-5.90) m/uL Hgb 9.0 L (13.0-17.5) gm/dL Hct 28.8 L (39.0-53.0) % Lymphocytes # 0.3 L (1.0-4.8) k/uL Potassium 5.9 H (3.5-5.1) mmol/L BUN 63 H (9-20) mg/dL Creatinine 4.04 H (0.66-1.25) mg/dL Glucose 130 H (74-99) mg/dL POC Glucose (mg/dL) 152 H (75-99) mg/dL Calcium 8.3 L (8.4-10.2) mg/dL Phosphorus 5.3 H (2.5-4.5) mg/dL Microbiology - Last 24 Hours (Table) 02/07/18 03:13 Blood Culture - Preliminary Blood No Growth after 48 hours 02/06/18 21:48 Blood Culture - Preliminary Blood No Growth after 48 hours Assessment and Plan Plan: Hypertension, uncontrolled - C/w Norvasc 5 mg bid, Hydralazine 50 mg PO q8h, Clonidine 0.2 mg bid. Agree with Labetalol increase to 400 mg bid. Hyperkalemia - Will obtain EKG - Received 15 g Kayexalate yesterday and an additional 30 g this morning with one BM yesterday evening ~ 8 pm as per pt - C/w telemetry monitoring. GOKUL on CKD stage III, unknown etiology - Patient to undergo kidney biopsy to evaluate for GN on Saturday as per Nephrology - Lasix and BETTY-I DCed. Sodium bicarb DCed - C/w Phoslo Poorly controlled DM - A1c 10.3 - Will switch Lantus to 10 U qhs only in light of hypoglycemic episodes - In light of worsening GOKUL, patient's insulin requirements will be lower Chronic Hep B - GI consulted, recs appreciated. Will follow as outpatient for treatment options. Chronic Hep C - HCV Ab and HCV viral RNA PCR positive Constipation - C/w Colace PO bid prn BPH - C/w Flomax Chronic anemia - Iron studies consistent w/ chronic disease anemia DVT/GI prophyl. - Heparin Subq q8h - No indication for GI prophylaxis LLE edema, resolved L foot pain, resolved
[2018-02-09] MEDS: CALCIUM ACETATE 667 MG CAP PO SCH ×3 (09:54→18:44)
--- NOTE | 2018-02-09 11:03 | P.PN ---
Subjective Progress Note Date: 02/09/18 Principal diagnosis: Acute hypertensive emergency, recovered 67-year-old -[place] male patient who got transferred to the intensive care unit for hypertensive emergency situation. The patient was hospitalized for acute kidney injury on top of chronic renal failure. The patient has long history of diabetes mellitus, hepatitis B, hepatitis C, remote history of IVDA, chronic renal failure, stage III chronic kidney disease, hypertension, hyperlipidemia, COPD, and multiple admissions in the past for complications related to diabetes and DKA. He also has also a below-knee amputation on the right. He has peripheral neuropathy in his lower extremities bilaterally. He has issues with chronic pain. He has been incarcerated on various occasions. During this current ICU admission, the patient was transferred because of diaphoresis and chest pain. Was noted the patient's blood pressure was high with systolics above 170 and diastolic above 100. Chest x-ray showed pulmonary edema and some widening of the vascular pedicle. At that point there was concern of dissection yet the blood pressure in both upper extremities with equivalent. The patient had a stat echocardiogram that showed no evidence of any dissection or acute regurgitation. Chest x-ray was consistent with pulmonary edema. First set of cardiac enzyme was negative with troponin of 0.013. EKG does not showing any acute ST segment elevation or depression. The patient got moved to the intensive care unit. Currently is on Drip at 2 mg per hour. He also also on a combination of blood pressure medications including hydralazine IV, verapamil, lisinopril 20 mg by mouth daily, Lasix 40 mg by mouth daily and Trandate 200 mg by mouth twice a day. He is currently free of any chest pain. No known history of coronary artery disease although this is suspected. He is awake. He is alert. No neck pain. No jaw pain. No back pain at this point in time. His UA is indicating proteinuria with +2 protein being spilled and nephrology is ultimately is interested in doing a kidney biopsy at a later stage. On 02/07/2018, the patient is awake and alert and following commands and answering questions appropriately. No chest pain. No shortness of breath or chest x-ray shows improvement in the volume status. The patient had an MRA of the chest that didn't show any evidence of dissection. Still on clevidipine drip and the patient will be gradually weaned off as the patient was started also on clonidine, Norvasc, hydralazine, lisinopril for blood pressure control. Doing well. Hemodynamically stable. Still on 40 ng of Lasix. Creatinine is up to 3.7. The rest of the electrodes are all within normal limits. Urine drug screen came back positive for cocaine also. No encephalopathy. No chest pain for now. On 02/08/2018, patient is awake alert and hemodynamically stable. Blood pressure remains under good control. Unfortunately his renal functions progressively getting worse in the creatinine today is up to 4.1. The patient is looking for a kidney biopsy at a later stage. I will discuss the possibility of stopping the Lasix and day BETTY inhibitor on this patient in view of his progressive worsening of the renal function. The patient otherwise shows no signs of any volume overload. He is on room air oxygen pH of 6 and shows small bilateral pleural effusions. No major edema in lower extremities. No metabolic acidosis. No altered mentation. He is a selective overflow here in the intensive care unit. On 02/09/2018 patient seen in follow-up on the surgical floor. Resting in bed, denies any acute distress, denies any chest pain, he states at times he is mildly short of breath with exertion, otherwise no distress. Room air pulse ox is 100%, patient is afebrile, blood pressures ranging from 150-170 m of mercury , diastolic blood pressure from 80-90 mmHg. Today's chest x-ray has been reviewed and shows vascular congestion and mild edema, bibasilar opacities worse on the left, small left pleural effusion. Today's labs have been reviewed , WBCs 4.5, hemoglobin is 9.0, potassium is 5.9, BUN is 63, creatinine is 4.04. Nephrology is following, and patient is scheduled for kidney biopsy on Saturday , on 02/10/2018. He is on oral antihypertensives currently, with Norvasc 5 mg twice daily, Catapres 0.2 mg twice daily, hydralazine 50 mg every 8 hours, labetalol 400 mg twice daily. Patient was given a dose of 30 g Kayexalate for today's potassium of 5.9. Objective - Vital Signs Vital signs: Vital Signs Temp 98.4 F 02/09/18 07:36 Pulse 87 02/09/18 07:36 Resp 16 02/09/18 07:36 BP 161/84 02/09/18 07:36 Pulse Ox 100 02/09/18 07:36 Intake & Output 02/08/18 02/09/18 02/09/18 18:59 06:59 18:59 Intake Total 750 450 120 Output Total 550 930 Balance 200 -480 120 Intake: Oral 750 450 120 Output: Urine 550 930 Other: Voiding Method Urinal Toilet Urinal Urinal # Voids 140 - Exam Calm comfortable no acute distress.using accessory muscles of breathing Head exam was generally normal. There was no scleral icterus or corneal arcus. Mucous membranes were moist. Neck was supple and with jugular venous distension, thyromegaly, or carotid bruits. Carotids were easily palpable bilaterally. There was no adenopathy. There is positive jugular venous distention Lungs sounds are diminished bilaterally along with left lower lobe crackles Cardiac exam revealed the PMI to be normally situated and sized. The rhythm was regular and no extrasystoles were noted during several minutes of auscultation. The first and second heart sounds were normal and physiologic splitting of the second heart sound was noted. There were no murmurs, rubs, clicks, or gallops. Abdominal exam revealed normal bowel sounds. The abdomen was soft, non-tender, and without masses, organomegaly, or appreciable enlargement of the abdominal aorta. Examination of the extremities revealed easily palpable radial, femoral and pedal pulses. There was no cyanosis, clubbing. Patient is right below the knee amputation, left lower extremity is positive for mild pretibial edema Neurologically awake and alert and there is no focal neurological deficit Psychiatric the patient is appropriate mood and affect - Labs CBC & Chem 7: 02/09/18 06:06 02/09/18 06:06 Labs: Abnormal Lab Results - Last 24 Hours (Table) 02/08/18 02/08/18 02/08/18 Range/Units 12:23 17:06 21:24 RBC (4.30-5.90) m/uL Hgb (13.0-17.5) gm/dL Hct (39.0-53.0) % Lymphocytes # (1.0-4.8) k/uL Potassium (3.5-5.1) mmol/L BUN (9-20) mg/dL Creatinine (0.66-1.25) mg/dL Glucose (74-99) mg/dL POC Glucose (mg/dL) 142 H 178 H 226 H (75-99) mg/dL Calcium (8.4-10.2) mg/dL Phosphorus (2.5-4.5) mg/dL 02/09/18 02/09/18 02/09/18 Range/Units 01:08 01:37 02:08 RBC (4.30-5.90) m/uL Hgb (13.0-17.5) gm/dL Hct (39.0-53.0) % Lymphocytes # (1.0-4.8) k/uL Potassium (3.5-5.1) mmol/L BUN (9-20) mg/dL Creatinine (0.66-1.25) mg/dL Glucose (74-99) mg/dL POC Glucose (mg/dL) 62 L 51 L 67 L (75-99) mg/dL Calcium (8.4-10.2) mg/dL Phosphorus (2.5-4.5) mg/dL 02/09/18 02/09/18 02/09/18 Range/Units 06:06 06:06 06:54 RBC 3.11 L (4.30-5.90) m/uL Hgb 9.0 L (13.0-17.5) gm/dL Hct 28.8 L (39.0-53.0) % Lymphocytes # 0.3 L (1.0-4.8) k/uL Potassium 5.9 H (3.5-5.1) mmol/L BUN 63 H (9-20) mg/dL Creatinine 4.04 H (0.66-1.25) mg/dL Glucose 130 H (74-99) mg/dL POC Glucose (mg/dL) 152 H (75-99) mg/dL Calcium 8.3 L (8.4-10.2) mg/dL Phosphorus 5.3 H (2.5-4.5) mg/dL Microbiology - Last 24 Hours (Table) 02/07/18 03:13 Blood Culture - Preliminary Blood No Growth after 48 hours 02/06/18 21:48 Blood Culture - Preliminary Blood No Growth after 48 hours Assessment and Plan Plan: Assessment: 1 acute hypertensive emergency, recovered and the patient's blood pressures under better control. The patient has an underlying hypertensive heart disease. 2 acute kidney injury on top of chronic renal failure. The patient is known to have stage III chronic kidney disease. The patient has proteinuria and underlying diabetic nephropathy or any other chronic nephropathy related to hepatitis B and hepatitis C cannot be completely ruled out. Glomerulonephritis is also being entertained. The patient will need a kidney biopsy. We'll discuss the progressive worsening in the renal function with nephrology. Creatinine is up to 4.1. No signs of any fluid overload or metabolic acidosis or encephalopathy at this point in time. 3 peripheral vascular disease with previous right below knee amputation 2014 4 COPD 5 diabetes mellitus with insulin dependence, essentially poorly controlled with diabetic complications including neuropathy, retinopathy and possible nephropathy 6 hyperlipidemia 7 hypertension 8 hepatitis B and hepatitis C viral infection of the liver with chronic liver disease 9 BPH 10 previous hospitalizations for DKA 11 previous history of brain concussion 12 gout 13 previous history of DVT, currently on no anticoagulation 14 previous history of fractures on the left 15 previous history of chronic back pain and sciatica and degenerative arthritis 16 anxiety and depression 17 remote history of IVDA 18 smoker 19 chronic anemia, anemia of chronic disease 20 positive cocaine use Plan Continue current medical treatment, patient is voiding, renal profile has slightly improved. Trace left lower extremity edema, denies any chest pain, at times mildly short of breath with exertion, otherwise no distress. Maintaining good oxygenation on room air, afebrile. No altered mentation. Today's chest x- ray showed vascular congestion and mild edema, small left pleural effusion and bibasilar opacities. Patient's Lasix remains on hold, nephrology is following, patient is scheduled for a kidney biopsy on Saturday, on 02/10/2018. Overall no acute complaints. We'll continue to follow I performed a history & physical examination of the patient and discussed their management with my nurse practitioner, Rose Garcia. I reviewed the nurse practitioner's note and agree with the documented findings and plan of care. Lung sounds are positive for left lower lobe crackles. The findings and the impression was discussed with the patient. I attest to the documentation by the nurse practitioner. Time with Patient: Less than 30
[2018-02-09 12:07] LABS: Glucose,Whole Blood 162 mg/dL (75-99)
[2018-02-09] MEDS: ACETAMINOPHEN TAB 325 MG TAB PO PRN (12:44)
[2018-02-09] MEDS: hydrALAZINE HCL 25 MG TAB PO SCH ×2 (14:44→22:31)
--- NOTE | 2018-02-09 16:04 | PN ---
PROGRESS NOTE Patient is seen for followup for chronic kidney disease, acute kidney injury, uncontrolled hypertension. The patient has been transferred out of the ICU. Blood pressure is better, however, remains still slightly on the high side, but not as high as previously. BETTY inhibitors were discontinued yesterday. Potassium is further elevated at 5 9. The patient received 1 dose of Kayexalate yesterday and today. He is maintained on a low-potassium diet. I will give him a dose of oral loop diuretics today. Renal function is fairly stable with creatinine at 4.0 today. EXAMINATION: Patient is comfortable. Blood pressure 161/84, heart rate 87 per minute. He is afebrile. Examination of the heart S1, S2. Examination lungs bilateral breath sounds are heard. Abdomen is soft, nontender. Examination lower extremities shows no evidence of edema. Patient has right BKA. WAREHOUSER exam is grossly intact. LAB: Show sodium 137, potassium 5.9, BUN 63, serum creatinine 4.04, calcium 8.3, phosphorus 5.3, hemoglobin 9.0. ASSESSMENT: 1. Acute kidney injury associated with fluctuation in blood pressure, however, we do need to rule out underlying GN. Patient will be scheduled for kidney biopsy tomorrow. He does have positive hepatitis C with positive hep C RNA. He is off of BETTY inhibitors given the hyperkalemia and worsening renal function. 2. Uncontrolled hypertension. Blood pressure is slightly better, however, remains elevated. I will increase the hydralazine to 75 mg q.8 hours. Continue with the current dose of labetalol. I will also add oral Lasix. This will help with the hypertension. 3. Congestive heart failure, fluid overload, currently improved. 4. Hyperkalemia associated with acute kidney injury, use of BETTY inhibitors, status post Kayexalate. The addition of oral loop diuretic will also help with the hyperkalemia. Patient should be maintained on a low-potassium diet. 5. Hyperphosphatemia secondary to renal failure, maintained on PhosLo. PLAN: Increase hydralazine to 75 mg q.8 hours and add oral Lasix. Kidney biopsy tomorrow. MMODL / IJN: [id number] /
[2018-02-09 17:13] LABS: Glucose,Whole Blood 232 mg/dL (75-99)
[2018-02-09] MEDS: FUROSEMIDE 40 MG TAB PO SCH (18:13)
[2018-02-09 18:56] LABS: Calcium 8.3 mg/dL (8.4-10.2); Potassium 4.9 mmol/L (3.5-5.1)
[2018-02-09 20:36] LABS: Glucose,Whole Blood 116 mg/dL (75-99)
[2018-02-09] MEDS: ATORVASTATIN 10 MG TAB PO SCH (21:18)
[2018-02-09] MEDS: INSULIN DETEMIR 100 UNIT/ML 10 ML VIAL SQ SCH (21:19)
[2018-02-10] MEDS: ACETAMINOPHEN TAB 325 MG TAB PO PRN ×3 (01:38→20:02)
[2018-02-10] MEDS: hydrALAZINE HCL 25 MG TAB PO SCH ×2 (06:33→13:45)
[2018-02-10 07:02] LABS: Glucose,Whole Blood 112 mg/dL (75-99)
[2018-02-10] MEDS: INSULIN ASPART 100 UNIT/ML 1 ML 10 ML VIAL SQ SCH ×4 (07:17→21:38)
[2018-02-10 07:40] LABS: Basophils % (A) 0 %; Eosinophils # (A) 0.1 k/uL (0-0.7); Eosinophils % (A) 2 %; HCT 28.8 % (39.0-53.0); HGB 9.4 gm/dL (13.0-17.5); Lymphocytes # (A) 0.6 k/uL (1.0-4.8); Lymphocytes % (A) 12 %; MCH 29.3 pg (25.0-35.0); MCHC 32.5 g/dL (31.0-37.0); MCV 90.3 fL (80.0-100.0); Mean Platelet Volume 7.2; Monocytes # (A) 0.3 k/uL (0-1.0); Monocytes % (A) 7 %; Neutrophils # (A) 3.5 k/uL (1.3-7.7); Neutrophils % (A) 76 %; Platelet Count 227 k/uL (150-450); RBC 3.19 m/uL (4.30-5.90); RDW 13.8 % (11.5-15.5); WBC 4.6 k/uL (3.8-10.6)
[2018-02-10 08:02] LABS: Albumin 2.9 g/dL (3.5-5.0); Calcium 8.2 mg/dL (8.4-10.2); Magnesium 2.1 mg/dL (1.6-2.3); Phosphorus 5.3 mg/dL (2.5-4.5); Potassium 4.6 mmol/L (3.5-5.1); Total Bilirubin 0.3 mg/dL (0.2-1.3)
[2018-02-10] MEDS: amLODIPine 5 MG TAB PO SCH ×2 (08:17→20:02)
[2018-02-10] MEDS: SODIUM BICARBONATE TAB 650 MG TAB PO SCH (08:17)
[2018-02-10] MEDS: cloNIDine HCL 0.1 MG TAB PO SCH (08:17)
[2018-02-10] MEDS: FUROSEMIDE 40 MG TAB PO SCH ×2 (08:17→17:30)
[2018-02-10] MEDS: GABAPENTIN 100 MG CAP PO SCH ×3 (08:17→21:38)
[2018-02-10] MEDS: TAMSULOSIN 0.4 MG CAP.ER.24H PO SCH (08:17)
[2018-02-10] MEDS: NICOTINE 14MG/24HR PATCH TRANSDERM SCH (08:18)
[2018-02-10] MEDS: HEPARIN SODIUM,PORCINE 5,000 UNIT/ML 1 ML VIAL SQ SCH ×3 (08:18→23:12)
[2018-02-10] MEDS: PANTOPRAZOLE 40 MG TABLET PO SCH ×2 (08:18→17:32)
[2018-02-10] MEDS: CALCIUM ACETATE 667 MG CAP PO SCH ×3 (08:18→17:32)
[2018-02-10] MEDS: LABETALOL 200 MG TAB PO SCH ×3 (08:18→23:13)
[2018-02-10 09:37] LABS: Prothrombin Time 9.6 sec (9.0-12.0)
[2018-02-10 11:30] LABS: Glucose,Whole Blood 150 mg/dL (75-99)
--- NOTE | 2018-02-10 13:09 | P.PN ---
Subjective Progress Note Date: 02/10/18 Principal diagnosis: Acute hypertensive emergency, recovered 67-year-old -[place] male patient who got transferred to the intensive care unit for hypertensive emergency situation. The patient was hospitalized for acute kidney injury on top of chronic renal failure. The patient has long history of diabetes mellitus, hepatitis B, hepatitis C, remote history of IVDA, chronic renal failure, stage III chronic kidney disease, hypertension, hyperlipidemia, COPD, and multiple admissions in the past for complications related to diabetes and DKA. He also has also a below-knee amputation on the right. He has peripheral neuropathy in his lower extremities bilaterally. He has issues with chronic pain. He has been incarcerated on various occasions. During this current ICU admission, the patient was transferred because of diaphoresis and chest pain. Was noted the patient's blood pressure was high with systolics above 170 and diastolic above 100. Chest x-ray showed pulmonary edema and some widening of the vascular pedicle. At that point there was concern of dissection yet the blood pressure in both upper extremities with equivalent. The patient had a stat echocardiogram that showed no evidence of any dissection or acute regurgitation. Chest x-ray was consistent with pulmonary edema. First set of cardiac enzyme was negative with troponin of 0.013. EKG does not showing any acute ST segment elevation or depression. The patient got moved to the intensive care unit. Currently is on Drip at 2 mg per hour. He also also on a combination of blood pressure medications including hydralazine IV, verapamil, lisinopril 20 mg by mouth daily, Lasix 40 mg by mouth daily and Trandate 200 mg by mouth twice a day. He is currently free of any chest pain. No known history of coronary artery disease although this is suspected. He is awake. He is alert. No neck pain. No jaw pain. No back pain at this point in time. His UA is indicating proteinuria with +2 protein being spilled and nephrology is ultimately is interested in doing a kidney biopsy at a later stage. On 02/07/2018, the patient is awake and alert and following commands and answering questions appropriately. No chest pain. No shortness of breath or chest x-ray shows improvement in the volume status. The patient had an MRA of the chest that didn't show any evidence of dissection. Still on clevidipine drip and the patient will be gradually weaned off as the patient was started also on clonidine, Norvasc, hydralazine, lisinopril for blood pressure control. Doing well. Hemodynamically stable. Still on 40 ng of Lasix. Creatinine is up to 3.7. The rest of the electrodes are all within normal limits. Urine drug screen came back positive for cocaine also. No encephalopathy. No chest pain for now. On 02/08/2018, patient is awake alert and hemodynamically stable. Blood pressure remains under good control. Unfortunately his renal functions progressively getting worse in the creatinine today is up to 4.1. The patient is looking for a kidney biopsy at a later stage. I will discuss the possibility of stopping the Lasix and day BETTY inhibitor on this patient in view of his progressive worsening of the renal function. The patient otherwise shows no signs of any volume overload. He is on room air oxygen pH of 6 and shows small bilateral pleural effusions. No major edema in lower extremities. No metabolic acidosis. No altered mentation. He is a selective overflow here in the intensive care unit. On 02/09/2018 patient seen in follow-up on the surgical floor. Resting in bed, denies any acute distress, denies any chest pain, he states at times he is mildly short of breath with exertion, otherwise no distress. Room air pulse ox is 100%, patient is afebrile, blood pressures ranging from 150-170 m of mercury , diastolic blood pressure from 80-90 mmHg. Today's chest x-ray has been reviewed and shows vascular congestion and mild edema, bibasilar opacities worse on the left, small left pleural effusion. Today's labs have been reviewed , WBCs 4.5, hemoglobin is 9.0, potassium is 5.9, BUN is 63, creatinine is 4.04. Nephrology is following, and patient is scheduled for kidney biopsy on Saturday , on 02/10/2018. He is on oral antihypertensives currently, with Norvasc 5 mg twice daily, Catapres 0.2 mg twice daily, hydralazine 50 mg every 8 hours, labetalol 400 mg twice daily. Patient was given a dose of 30 g Kayexalate for today's potassium of 5.9. On 02/10/2018 patient seen in follow-up on the surgical floor. He is scheduled for kidney biopsy today, hemoglobin is a bit hypertensive, with systolic blood pressure in the 170s. Neurologically patient appears to be a bit more lethargic compared to yesterday's exam, a bit more sluggish, but he is oriented 3. Denies any shortness of breath, denies any chest pain. He is experiencing some urinary retention post removal of his Delcid catheter, have to reinsert the indwelling catheter. Patient remains on a combination of oral Norvasc 5 mg twice daily, clonidine, Lasix at 40 mg twice daily, was re-initiated today. Continues on labetalol 400 mg twice daily. Today's lab work has been reviewed, she is 4.6, hemoglobin is 9.4, electrolytes are essentially within normal limits , creatinine is down to 3.83, B1 is down to 58, and there has been a slight improvement of his renal profile. Patient feels cold, has chills, vital signs show a low-grade fever this morning, with a temp of 99.3F. No dysuria, no urinary symptoms, no new chest x-rays. Objective - Vital Signs Vital signs: Vital Signs Temp 99.3 F 02/10/18 08:38 Pulse 90 02/10/18 10:23 Resp 16 02/10/18 08:38 BP 178/85 02/10/18 10:23 Pulse Ox 96 02/10/18 08:38 Intake & Output 02/09/18 02/10/18 02/10/18 18:59 06:59 18:59 Intake Total 120 600 550 Output Total 907 Balance 120 600 -357 Weight 75.5 kg 74.5 kg Intake: Oral 120 600 550 Output: Urine 500 Straight 500 Post Void Residual 407 Other: Voiding Method Urinal Toilet Toilet Urinal Urinal # Voids 2 2 - Exam Calm comfortable no acute distress. Covered with a blanket, he states he is feeling a bit chilled Head exam was generally normal. There was no scleral icterus or corneal arcus. Mucous membranes were moist. Neck was supple and with jugular venous distension, thyromegaly, or carotid bruits. Carotids were easily palpable bilaterally. There was no adenopathy. There is positive jugular venous distention Lungs sounds are diminished bilaterally along with left lower lobe crackles Cardiac exam revealed the PMI to be normally situated and sized. The rhythm was regular and no extrasystoles were noted during several minutes of auscultation. The first and second heart sounds were normal and physiologic splitting of the second heart sound was noted. There were no murmurs, rubs, clicks, or gallops. Abdominal exam revealed normal bowel sounds. The abdomen was soft, non-tender, and without masses, organomegaly, or appreciable enlargement of the abdominal aorta. Examination of the extremities revealed easily palpable radial, femoral and pedal pulses. There was no cyanosis, clubbing. Patient is right below the knee amputation, left lower extremity is positive for mild pretibial edema Neurologically awake and alert and there is no focal neurological deficit Psychiatric the patient is appropriate mood and affect - Labs CBC & Chem 7: 02/10/18 07:27 02/10/18 07:27 Labs: Abnormal Lab Results - Last 24 Hours (Table) 02/09/18 02/09/18 02/09/18 Range/Units 17:12 18:10 20:34 RBC (4.30-5.90) m/uL Hgb (13.0-17.5) gm/dL Hct (39.0-53.0) % Lymphocytes # (1.0-4.8) k/uL Sodium 135 L (137-145) mmol/L BUN 61 H (9-20) mg/dL Creatinine 4.01 H (0.66-1.25) mg/dL Glucose 204 H (74-99) mg/dL POC Glucose (mg/dL) 232 H 116 H (75-99) mg/dL Calcium 8.3 L (8.4-10.2) mg/dL Phosphorus (2.5-4.5) mg/dL Total Protein (6.3-8.2) g/dL Albumin (3.5-5.0) g/dL 02/10/18 02/10/18 02/10/18 Range/Units 06:50 07:27 07:27 RBC 3.19 L (4.30-5.90) m/uL Hgb 9.4 L (13.0-17.5) gm/dL Hct 28.8 L (39.0-53.0) % Lymphocytes # 0.6 L (1.0-4.8) k/uL Sodium (137-145) mmol/L BUN 58 H (9-20) mg/dL Creatinine 3.83 H (0.66-1.25) mg/dL Glucose 113 H (74-99) mg/dL POC Glucose (mg/dL) 112 H (75-99) mg/dL Calcium 8.2 L (8.4-10.2) mg/dL Phosphorus 5.3 H (2.5-4.5) mg/dL Total Protein 6.0 L (6.3-8.2) g/dL Albumin 2.9 L (3.5-5.0) g/dL 02/10/18 Range/Units 11:26 RBC (4.30-5.90) m/uL Hgb (13.0-17.5) gm/dL Hct (39.0-53.0) % Lymphocytes # (1.0-4.8) k/uL Sodium (137-145) mmol/L BUN (9-20) mg/dL Creatinine (0.66-1.25) mg/dL Glucose (74-99) mg/dL POC Glucose (mg/dL) 150 H (75-99) mg/dL Calcium (8.4-10.2) mg/dL Phosphorus (2.5-4.5) mg/dL Total Protein (6.3-8.2) g/dL Albumin (3.5-5.0) g/dL Microbiology - Last 24 Hours (Table) 02/07/18 03:13 Blood Culture - Preliminary Blood No Growth after 72 hours 02/06/18 21:48 Blood Culture - Preliminary Blood No Growth after 72 hours Assessment and Plan Plan: Assessment: 1 acute hypertensive emergency, recovered and the patient's blood pressures under better control. The patient has an underlying hypertensive heart disease. 2 acute kidney injury on top of chronic renal failure. The patient is known to have stage III chronic kidney disease. The patient has proteinuria and underlying diabetic nephropathy or any other chronic nephropathy related to hepatitis B and hepatitis C cannot be completely ruled out. Glomerulonephritis is also being entertained. Kidney biopsy is scheduled for today, and today's creatinine is down to 3.83 3 peripheral vascular disease with previous right below knee amputation 2014 4 COPD 5 diabetes mellitus with insulin dependence, essentially poorly controlled with diabetic complications including neuropathy, retinopathy and possible nephropathy 6 hyperlipidemia 7 hypertension 8 hepatitis B and hepatitis C viral infection of the liver with chronic liver disease 9 BPH 10 previous hospitalizations for DKA 11 previous history of brain concussion 12 gout 13 previous history of DVT, currently on no anticoagulation 14 previous history of fractures on the left 15 previous history of chronic back pain and sciatica and degenerative arthritis 16 anxiety and depression 17 remote history of IVDA 18 smoker 19 chronic anemia, anemia of chronic disease 20 positive cocaine use Plan He is having some urinary retention issues post removal of the Delcid catheter, Delcid catheter will have to be replaced. He continues on combination of oral antihypertensives, currently his blood pressure is ranging from 170-200 systolic , may be related to his urinary retention. Denies any shortness of breath, denies any chest pain. He is awaiting his kidney biopsy today, monitoring renal profile, and electrolytes. Monitor patient's mentation, vital signs. Nephrology is managing patient's hypertensive medications, and diuretics. We will see the patient on as-needed basis. I performed a history & physical examination of the patient and discussed their management with my nurse practitioner, Rose Garcia. I reviewed the nurse practitioner's note and agree with the documented findings and plan of care. Lung sounds are positive for left lower lobe crackles. The findings and the impression was discussed with the patient. I attest to the documentation by the nurse practitioner. Time with Patient: Less than 30
[2018-02-10 13:35] LABS: Hepatitis B Virus DNA Not detected (Not detected); Hepatitis B Virus DNA, Quant <10 IU/mL (<10); Log HBV IU/mL <1.00 (<1.00)
[2018-02-10] MEDS ORDERED: hydrALAZINE HCL 50 MG TAB PO SCH (16:00)
[2018-02-10 16:08] LABS: HCV Quant Log 5.94 (<1.08)
--- NOTE | 2018-02-10 17:03 | US ---
EXAMINATION TYPE: US venous doppler duplex UE RT DATE OF EXAM: 02/10/2018 COMPARISON: NONE CLINICAL HISTORY: Superficial thrombophlebitis, r/o DVT. states swelling to arm, but not obvious to t ech, patient is sleeping during exam and does not wake easily SIDE PERFORMED: Right Right Arm: Appears negative for DVT IMPRESSION: No evidence of deep venous thrombosis in the right arm.
[2018-02-10 17:18] LABS: Glucose,Whole Blood 270 mg/dL (75-99)
--- NOTE | 2018-02-10 18:35 | PN ---
PROGRESS NOTE The patient is seen for followup for acute kidney injury, chronic kidney disease and uncontrolled hypertension. Patient's blood pressure was much better controlled yesterday. However, this morning it was high again with systolic in the 200 range. The patient received his morning medications. He was supposed to go down for a kidney biopsy. I am not sure that will be done given his elevated blood pressures. EXAMINATION: Earlier this morning, blood pressure was 200/100, heart rate of 86 per minute. Patient was afebrile. Examination of the heart S1, S2. Examination of the lungs bilateral breath sounds are heard. Abdomen is soft, nontender. Examination lower extremities shows right BKA. No significant edema is noted. LABS: From today show sodium 138, potassium 4.6, BUN 58, serum creatinine 3.83, phosphorus 5.3. ASSESSMENT: 1. Uncontrolled hypertension with previous drug screen showing cocaine on February 06. I will order another urine test for toxicology as the patient's blood pressure is significantly higher than yesterday. His medications will be increased. 2. Acute kidney injury secondary to hemodynamic instability, currently off of BETTY inhibitors with creatinine down today from 4 to 3.8. Good urine output is maintained. 3. Chronic kidney disease, rule out underlying GN. 4. Hepatitis C with hep C RNA being positive, rule out MP GN. Hepatitis B surface antigen was positive as well with negative agent. Therefore, patient does not have any acute infection for hepatitis B. PLAN: Check urine drug screen and increase clonidine to q.8 hours and increase labetalol as well. MMODL / IJN: [id number] /
--- NOTE | 2018-02-10 18:49 | P.PN ---
Subjective Progress Note Date: 02/10/18 The patient seen and examined at the bedside. The patient endorsed right antecubital fossa and right forearm pain ongoing for the past 48 hours, at site of IV catheter insertion, 8/10, throbbing, with no alleviating or exacerbating factors. He otherwise denied any headache, dizziness, chest pain, shortness of breath, abdominal pain, nausea, vomiting, fever, or chills. The patient was initially scheduled for kidney biopsy today which was cancelled due to elevated BP. Furthermore, patient had bladder scan which showed retention w/ 500 cc of urine on straight-cath. Delcid was therefore re-inserted. The patient will be scheduled for biopsy tomorrow. Objective - Vital Signs Vital signs: Vital Signs Temp 99.2 F 02/10/18 13:07 Pulse 85 02/10/18 15:13 Resp 16 02/10/18 15:13 BP 175/88 02/10/18 15:13 Pulse Ox 95 02/10/18 15:13 Intake & Output 02/09/18 02/10/18 02/10/18 18:59 06:59 18:59 Intake Total 120 600 550 Output Total 907 Balance 120 600 -357 Weight 75.5 kg 74.5 kg Intake: Oral 120 600 550 Output: Urine 500 Straight 500 Post Void Residual 407 Other: Voiding Method Urinal Toilet Toilet Urinal Urinal # Voids 2 2 - Exam General: Non-toxic, in no acute distress HEENT: NC/AT, anicteric sclerae, moist conjunctiva, no lid-lag, PERRLA, oropharynx clear, no erythema, exudates Cardiovascular: S1/S2 wnl, no murmurs, rubs, or gallops Lungs: CTA B/L, normal respiratory effort, no accessory muscle use Abdominal: Soft, nontender, non-distended, no guarding, rebound, or rigidity, normoactive bowel sounds Skin: Warm, dry Extremities: R BKA, L foot swelling improved, RUE forearm tenderness w/ mild warmth of anterior aspect. No calf tenderness noted. Psychiatric: Alert and oriented to person, place and time, appropriate affect, Intact judgment Neuro: CN II-XI grossly intact, sensation to light touch grossly present throughout, no focal sensory deficits - Labs CBC & Chem 7: 02/10/18 07:27 09/10/18 07:27 Labs: Abnormal Lab Results - Last 24 Hours (Table) 02/09/18 02/09/18 02/09/18 Range/Units 17:12 18:10 20:34 RBC (4.30-5.90) m/uL Hgb (13.0-17.5) gm/dL Hct (39.0-53.0) % Lymphocytes # (1.0-4.8) k/uL Sodium 135 L (137-145) mmol/L BUN 61 H (9-20) mg/dL Creatinine 4.01 H (0.66-1.25) mg/dL Glucose 204 H (74-99) mg/dL POC Glucose (mg/dL) 232 H 116 H (75-99) mg/dL Calcium 8.3 L (8.4-10.2) mg/dL Phosphorus (2.5-4.5) mg/dL Total Protein (6.3-8.2) g/dL Albumin (3.5-5.0) g/dL 02/10/18 02/10/18 02/10/18 Range/Units 06:50 07:27 07:27 RBC 3.19 L (4.30-5.90) m/uL Hgb 9.4 L (13.0-17.5) gm/dL Hct 28.8 L (39.0-53.0) % Lymphocytes # 0.6 L (1.0-4.8) k/uL Sodium (137-145) mmol/L BUN 58 H (9-20) mg/dL Creatinine 3.83 H (0.66-1.25) mg/dL Glucose 113 H (74-99) mg/dL POC Glucose (mg/dL) 112 H (75-99) mg/dL Calcium 8.2 L (8.4-10.2) mg/dL Phosphorus 5.3 H (2.5-4.5) mg/dL Total Protein 6.0 L (6.3-8.2) g/dL Albumin 2.9 L (3.5-5.0) g/dL 02/10/18 Range/Units 11:26 RBC (4.30-5.90) m/uL Hgb (13.0-17.5) gm/dL Hct (39.0-53.0) % Lymphocytes # (1.0-4.8) k/uL Sodium (137-145) mmol/L BUN (9-20) mg/dL Creatinine (0.66-1.25) mg/dL Glucose (74-99) mg/dL POC Glucose (mg/dL) 150 H (75-99) mg/dL Calcium (8.4-10.2) mg/dL Phosphorus (2.5-4.5) mg/dL Total Protein (6.3-8.2) g/dL Albumin (3.5-5.0) g/dL Microbiology - Last 24 Hours (Table) 02/07/18 03:13 Blood Culture - Preliminary Blood No Growth after 72 hours 02/06/18 21:48 Blood Culture - Preliminary Blood No Growth after 72 hours Assessment and Plan Plan: Hypertension, uncontrolled - Clonidine increased to 0.2 mg q8h, labetalol to 400 mg q8h, and Hydralazine to 100 mg q8h -- appreciate nephrology recs - C/w Norvasc 5 mg bid and Lasix 40 mg bid Hyperkalemia - Resolved GOKUL on CKD stage III, unknown etiology - Patient to undergo kidney biopsy to evaluate for GN tomorrow if BP well controlled - BETTY-I DCed. Sodium bicarb DCed - C/w Phoslo Poorly controlled DM - A1c 10.3 - C/w Lantus 10 U qhs - In light of worsening GOKUL, patient's insulin requirements will be lower Chronic Hep B - GI consulted, recs appreciated. Will follow as outpatient for treatment options. Chronic Hep C - HCV Ab and HCV viral RNA PCR positive Constipation - C/w Colace PO bid prn BPH - C/w Flomax Chronic anemia - Iron studies consistent w/ chronic disease anemia DVT/GI prophyl. - Heparin Subq q8h - No indication for GI prophylaxis LLE edema, resolved L foot pain, resolved Time with Patient: Greater than 30
[2018-02-10 19:38] LABS: Glucose,Whole Blood 199 mg/dL (75-99)
[2018-02-10] MEDS: ATORVASTATIN 10 MG TAB PO SCH (20:02)
[2018-02-10 21:38] LABS: Glucose,Whole Blood 265 mg/dL (75-99)
[2018-02-10] MEDS: INSULIN DETEMIR 100 UNIT/ML 10 ML VIAL SQ SCH (21:38)
[2018-02-10] MEDS: hydrALAZINE HCL 50 MG TAB PO SCH (21:38)
[2018-02-10] MEDS: cloNIDine HCL 0.2 MG TAB PO SCH (23:13)
[2018-02-11 03:08] LABS: Urine Alcohol Negative (Negative); Urine Barbiturate Negative (Negative); Urine Cocaine Negative (Negative); Urine Methadone Negative (Negative); Urine Opiates Positive (Negative); Urine Phencyclidine Negative (Negative)
[2018-02-11] MEDS: hydrALAZINE HCL 50 MG TAB PO SCH ×3 (05:31→20:53)
[2018-02-11] MEDS: ACETAMINOPHEN TAB 325 MG TAB PO PRN (05:32)
[2018-02-11 07:18] LABS: Glucose,Whole Blood 236 mg/dL (75-99)
[2018-02-11] MEDS: amLODIPine 5 MG TAB PO SCH ×2 (08:27→19:29)
[2018-02-11] MEDS: FUROSEMIDE 40 MG TAB PO SCH ×2 (08:27→16:45)
[2018-02-11] MEDS: cloNIDine HCL 0.2 MG TAB PO SCH ×3 (08:27→22:59)
[2018-02-11] MEDS: CALCIUM ACETATE 667 MG CAP PO SCH ×3 (08:28→17:36)
[2018-02-11] MEDS: GABAPENTIN 100 MG CAP PO SCH ×3 (08:28→20:58)
[2018-02-11] MEDS: SODIUM BICARBONATE TAB 650 MG TAB PO SCH (08:28)
[2018-02-11] MEDS: PANTOPRAZOLE 40 MG TABLET PO SCH ×2 (08:28→17:36)
[2018-02-11] MEDS: TAMSULOSIN 0.4 MG CAP.ER.24H PO SCH (08:28)
[2018-02-11] MEDS: INSULIN ASPART 100 UNIT/ML 1 ML 10 ML VIAL SQ SCH ×4 (08:28→20:58)
[2018-02-11] MEDS: LABETALOL 200 MG TAB PO SCH ×3 (08:29→22:59)
[2018-02-11] MEDS: NICOTINE 14MG/24HR PATCH TRANSDERM SCH (08:33)
[2018-02-11] MEDS: HEPARIN SODIUM,PORCINE 5,000 UNIT/ML 1 ML VIAL SQ SCH ×3 (08:34→19:30)
[2018-02-11 08:42] LABS: Basophils % (A) 0 %; Eosinophils # (A) 0.1 k/uL (0-0.7); Eosinophils % (A) 1 %; HCT 26.5 % (39.0-53.0); HGB 8.5 gm/dL (13.0-17.5); Lymphocytes # (A) 1.2 k/uL (1.0-4.8); Lymphocytes % (A) 15 %; MCH 29.2 pg (25.0-35.0); MCV 91.5 fL (80.0-100.0); Monocytes # (A) 0.6 k/uL (0-1.0); Monocytes % (A) 8 %; Neutrophils # (A) 6.1 k/uL (1.3-7.7); Neutrophils % (A) 74 %; Platelet Count 253 k/uL (150-450); RBC 2.89 m/uL (4.30-5.90); RDW 13.8 % (11.5-15.5); WBC 8.3 k/uL (3.8-10.6)
[2018-02-11 08:53] LABS: Albumin 2.6 g/dL (3.5-5.0); Magnesium 2.1 mg/dL (1.6-2.3); Phosphorus 5.7 mg/dL (2.5-4.5); Potassium 4.3 mmol/L (3.5-5.1); Total Bilirubin 0.3 mg/dL (0.2-1.3); Total Protein 5.5 g/dL (6.3-8.2)
--- NOTE | 2018-02-11 09:43 | P.PN ---
Subjective Progress Note Date: 02/11/18 Patient in good spirits today, brushing his teeth in the restroom, the Delcid catheter in with good urine output. Morning blood sugar elevated at 230 receiving correctional scale coverage. Creatinine elevated today from 3.8 to 4.5. Patient scheduled for kidney biopsy today Objective - Vital Signs Vital signs: Vital Signs Temp 96.9 F L 02/11/18 07:20 Pulse 70 02/11/18 07:20 Resp 18 02/11/18 07:20 BP 133/79 02/11/18 07:20 Pulse Ox 93 L 02/11/18 07:20 Intake & Output 02/10/18 02/11/18 02/11/18 18:59 06:59 18:59 Intake Total 550 360 Output Total 1407 200 425 Balance -857 160 -425 Weight 74.5 kg Intake: Oral 550 360 Output: Urine 1000 200 425 Straight 500 Uretheral (Delcid) 425 Post Void Residual 407 Other: Voiding Method Toilet Indwelling Catheter Urinal - Exam Constitutional: No acute distress, conversant, pleasant Eyes: Anicteric sclerae, moist conjunctiva, no lid-lag, PERRLA ENMT: NC/AT,Oropharynx clear, no erythema, exudates Neck:Supple, FROM, no masses, or JVD, No carotid bruits; No thyromegaly Lungs: Clear to auscultation, Clear to percussion, Normal respiratory effort, no accessory muscle use Cardiovascular: Heart regular in rate and rhythm, No murmurs, gallops, or rubs no peripheral edema Abdominal: Soft Nontender, nom distended, no guarding, no rebound or rigidity, Normoactive bowel sounds No hepatomegaly, No splenomegaly, No palpable mass No abdominal wall hernia noted Skin: Normal temperature, tone, texture, turgor, No induration No subcutaneous nodules, No rash, lesions, No ulcers Extremities:No digital cyanosis No clubbing, Pedal pulses intact and symmetrical Radial pulses intact and symmetrical Normal gait and station, No calf tenderness, right BKA Psychiatric: Alert and oriented to person, place and time, Appropriate affect Intact judgement Neuro: Muscles Strength 5/5 in all 4 extremities, Sensation to light touch grossly present throughout, Cranial nerves II-XII grossly intact. No focal sensory deficits - Labs CBC & Chem 7: 02/11/18 07:54 02/11/18 07:54 Labs: Abnormal Lab Results - Last 24 Hours (Table) 02/06/18 02/10/18 02/10/18 Range/Units 08:10 11:26 17:13 RBC (4.30-5.90) m/uL Hgb (13.0-17.5) gm/dL Hct (39.0-53.0) % Sodium (137-145) mmol/L BUN (9-20) mg/dL Creatinine (0.66-1.25) mg/dL Glucose (74-99) mg/dL POC Glucose (mg/dL) 150 H 270 H (75-99) mg/dL Calcium (8.4-10.2) mg/dL Phosphorus (2.5-4.5) mg/dL Total Protein (6.3-8.2) g/dL Albumin (3.5-5.0) g/dL Urine Opiates Screen (Negative) ng/mL HCV RNA Qual (PCR) DETECTED H (Not detected) Hepatitis C RNA Quant 875,830 H (<12) IU/mL HCV RNA PCR log copy and print associate/ml 5.94 H (<1.08) Hepatitis C Genotype 1a H 02/10/18 02/10/18 02/10/18 Range/Units 19:35 19:55 21:37 RBC (4.30-5.90) m/uL Hgb (13.0-17.5) gm/dL Hct (39.0-53.0) % Sodium (137-145) mmol/L BUN (9-20) mg/dL Creatinine (0.66-1.25) mg/dL Glucose (74-99) mg/dL POC Glucose (mg/dL) 199 H 265 H (75-99) mg/dL Calcium (8.4-10.2) mg/dL Phosphorus (2.5-4.5) mg/dL Total Protein (6.3-8.2) g/dL Albumin (3.5-5.0) g/dL Urine Opiates Screen Positive H (Negative) ng/mL HCV RNA Qual (PCR) (Not detected) Hepatitis C RNA Quant (<12) IU/mL HCV RNA PCR log copy and print associate/ml (<1.08) Hepatitis C Genotype 09/11/18 09/11/18 09/11/18 Range/Units 07:12 07:54 07:54 RBC 2.89 L (4.30-5.90) m/uL Hgb 8.5 L (13.0-17.5) gm/dL Hct 26.5 L (39.0-53.0) % Sodium 135 L (137-145) mmol/L BUN 67 H (9-20) mg/dL Creatinine 4.50 H (0.66-1.25) mg/dL Glucose 191 H (74-99) mg/dL POC Glucose (mg/dL) 236 H (75-99) mg/dL Calcium 8.0 L (8.4-10.2) mg/dL Phosphorus 5.7 H (2.5-4.5) mg/dL Total Protein 5.5 L (6.3-8.2) g/dL Albumin 2.6 L (3.5-5.0) g/dL Urine Opiates Screen (Negative) ng/mL HCV RNA Qual (PCR) (Not detected) Hepatitis C RNA Quant (<12) IU/mL HCV RNA PCR log copy and print associate/ml (<1.08) Hepatitis C Genotype Microbiology - Last 24 Hours (Table) 02/07/18 03:13 Blood Culture - Preliminary Blood No Growth after 96 hours 02/06/18 21:48 Blood Culture - Preliminary Blood No Growth after 96 hours Assessment and Plan (1) GOKUL (acute kidney injury) Narrative/Plan: * Superimposed on CKD stage 3 with a creatinine trending up to 4.5 * Likely nonoliguric improving with hydration * Renal ultrasound negative for renal artery stenosis, urinalysis showing proteinuria * 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 Current Visit: Yes Status: Acute Code(s): N17.9 - ACUTE KIDNEY FAILURE, UNSPECIFIED SNOMED Code(s): 28429213 (2) Accelerated hypertension Narrative/Plan: * Blood pressure elevated this morning but are much improved from yesterday * Continue current regimen for now with Lasix 40 mg by mouth daily twice a day, Norvasc 5 mg twice a day , clonidine 0.2 mg 3 times a day, labetalol 400 mg by mouth 3 times a day, hydralazine 100 mg by mouth 3 times a day * Echocardiogram indicating normal ejection fraction Current Visit: Yes Status: Acute Code(s): I10 - ESSENTIAL (PRIMARY) HYPERTENSION SNOMED Code(s): 53111648 (3) Chronic kidney disease, stage 3 (moderate) Narrative/Plan: * Nephrotic range proteinuria likely from diabetic kidney disease but will need to rule out GN * Appreciate nephrology recommendations * Has associated anemia of chronic disease Current Visit: Yes Status: Acute Code(s): N18.3 - CHRONIC KIDNEY DISEASE, STAGE 3 (MODERATE) SNOMED Code(s): 299150823 (4) Type 2 diabetes mellitus with hyperglycemia Narrative/Plan: * A1c 10.3 indicating poor control * Continue with basal insulin, resume prandial insulin when eating and continue correctional scale coverage Current Visit: Yes Status: Acute Code(s): E11.65 - TYPE 2 DIABETES MELLITUS WITH HYPERGLYCEMIA SNOMED Code(s): 123393630147869 (5) Hepatitis C Narrative/Plan: * Significantly elevated viral load 875, 830 * GI consulted and following, awaiting further recommendations Current Visit: Yes Status: Acute Code(s): B19.20 - UNSPECIFIED VIRAL HEPATITIS C WITHOUT HEPATIC COMA SNOMED Code(s): 10314588 Plan: Disposition * Follow-up biopsy results continue to monitor * Anticipate discharge in 1-2 days
--- NOTE | 2018-02-11 10:44 | CT ---
DATE OF EXAM: 02/11/2018 COMPARISON: NONE CT DLP: 1343 mGycm HISTORY: Renal failure PROCEDURE: Maximal barrier technique was utilized. After informed consent, the skin overlying a suit able path to the lower pole of the left kidney was localized using CT guidance, the skin was prepped and draped. Lidocaine was used for local anesthesia. A skin vira made with a scalpel. Using CT evelia dance, a 17-gauge needle was advanced into in position at the lateral and inferior cortex of the left kidney where coaxial placement of an 18-gauge needle was used and core biopsy obtained. Three passe s made in total. Hemostasis was achieved. There was no immediate complication and patient remained in stable condition. Specimen submitted to Pathology. IMPRESSION: Status post CT guided core biopsy of left renal cortex, pathology pending. This procedur e performed by the undersigned.
[2018-02-11 11:45] LABS: Glucose,Whole Blood 113 mg/dL (75-99)
[2018-02-11 16:40] LABS: Glucose,Whole Blood 337 mg/dL (75-99)
[2018-02-11 19:52] LABS: Glucose,Whole Blood 250 mg/dL (75-99)
[2018-02-11] MEDS: INSULIN DETEMIR 100 UNIT/ML 10 ML VIAL SQ SCH (20:58)
[2018-02-11] MEDS: ATORVASTATIN 10 MG TAB PO SCH (20:58)
--- NOTE | 2018-02-11 22:05 | PN ---
PROGRESS NOTE Patient is seen for followup for acute kidney injury and uncontrolled hypertension. The patient did have his kidney biopsy this morning. His blood pressure, however, following the biopsy has been running on the lower side. He did come down to about 130s 140s, but lately he has been down at 108 and 114 mmHg. PHYSICAL EXAMINATION: On examination, heart rate was about 65 per minute, O2 sats 93-94 percent on room air. Examination of the heart S1, S2. Examination of the lungs bilateral breath sounds are heard. Abdomen is soft, nontender. Examination of lower extremities shows no evidence of edema. The patient has right BKA. LABS: From this morning show potassium of 4.3, sodium 135. Serum creatinine up to 4.5, hemoglobin was 8.5 g/dL, phosphorus 5.7. ASSESSMENT: 1. Acute kidney injury with recent deterioration in renal function, most likely secondary to a drop in the blood pressure. We will need to hold off antihypertensive medications for systolic blood pressure of less than 120. Yesterday morning, the blood pressure was severely uncontrolled and therefore medications were increased. The urine drug screen was negative for cocaine, although it was positive initially about 5 days ago. 2. Chronic kidney disease, rule out underlying glomerulonephritis, status post kidney biopsy today. 3. Hyperkalemia associated with worsening renal failure, currently improved. Patient is status post discontinuation of BETTY inhibitors. 4. Hyperphosphatemia associated with worsening renal failure. We will start phosphate binders if phosphorus continues to worsen and renal function continues to worsen. 5. Hepatitis C with positive hep C viral RNA. PLAN: Hold off on antihypertensive medications for systolic blood pressure less than 120. Allow slightly higher perfusion pressures. Goal systolic blood pressure should be around 140 mmHg. I will hold off on the Lasix for tonight. Repeat labs in a.m. MMODL / IJN: [id number] /
[2018-02-12] MEDS: hydrALAZINE HCL 50 MG TAB PO SCH ×3 (05:44→21:55)
[2018-02-12 07:14] LABS: Glucose,Whole Blood 261 mg/dL (75-99)
[2018-02-12 07:53] LABS: Albumin 2.5 g/dL (3.5-5.0); Calcium 8.1 mg/dL (8.4-10.2); Potassium 4.3 mmol/L (3.5-5.1); Total Bilirubin 0.3 mg/dL (0.2-1.3); Total Protein 5.3 g/dL (6.3-8.2)
[2018-02-12] MEDS: TAMSULOSIN 0.4 MG CAP.ER.24H PO SCH (08:15)
[2018-02-12] MEDS: SODIUM BICARBONATE TAB 650 MG TAB PO SCH (08:15)
[2018-02-12] MEDS: FUROSEMIDE 40 MG TAB PO SCH (08:15)
[2018-02-12] MEDS: GABAPENTIN 100 MG CAP PO SCH ×3 (08:15→21:48)
[2018-02-12] MEDS: PANTOPRAZOLE 40 MG TABLET PO SCH ×2 (08:15→17:08)
[2018-02-12] MEDS: cloNIDine HCL 0.2 MG TAB PO SCH ×2 (08:15→16:05)
[2018-02-12] MEDS: amLODIPine 5 MG TAB PO SCH ×2 (08:15→21:48)
[2018-02-12] MEDS: NICOTINE 14MG/24HR PATCH TRANSDERM SCH (08:16)
[2018-02-12] MEDS: INSULIN ASPART 100 UNIT/ML 1 ML 10 ML VIAL SQ SCH ×4 (08:16→21:03)
[2018-02-12] MEDS: HEPARIN SODIUM,PORCINE 5,000 UNIT/ML 1 ML VIAL SQ SCH ×2 (08:16→16:05)
[2018-02-12] MEDS: LABETALOL 200 MG TAB PO SCH ×2 (08:22→17:08)
[2018-02-12] MEDS: CALCIUM ACETATE 667 MG CAP PO SCH ×3 (08:22→17:08)
[2018-02-12 11:39] LABS: Glucose,Whole Blood 319 mg/dL (75-99)
[2018-02-12] MEDS: DOCUSATE 100 MG CAP PO PRN ×2 (11:50→21:48)
[2018-02-12] MEDS ORDERED: INSULIN DETEMIR 100 UNIT/ML 10 ML VIAL SQ ONE (12:04)
--- NOTE | 2018-02-12 12:26 | P.PN ---
Subjective Progress Note Date: 02/12/18 Patient in good spirits today, has a visitor today. Still having elevated morning blood sugars, and receiving correctional scale coverage, urine output diminishing nephrology notified, creatinine continues to trend up to 5.4 today. Patient had his kidney biopsy yesterday. No other acute events overnight Objective - Vital Signs Vital signs: Vital Signs Temp 98 F 02/12/18 07:42 Pulse 67 02/12/18 07:42 Resp 16 02/12/18 07:42 BP 141/67 02/12/18 07:42 Pulse Ox 97 02/12/18 07:42 Intake & Output 02/11/18 02/12/18 02/12/18 18:59 06:59 18:59 Intake Total 600 240 500 Output Total 600 200 Balance 0 40 500 Weight 76 kg Intake: Oral 600 240 500 Output: Urine 600 200 Uretheral (Delcid) 600 Other: Voiding Method Indwelling Catheter Indwelling Catheter Indwelling Catheter - Exam Constitutional: No acute distress, conversant, pleasant Eyes: Anicteric sclerae, moist conjunctiva, no lid-lag, PERRLA ENMT: NC/AT,Oropharynx clear, no erythema, exudates Neck:Supple, FROM, no masses, or JVD, No carotid bruits; No thyromegaly Lungs: Clear to auscultation, Clear to percussion, Normal respiratory effort, no accessory muscle use Cardiovascular: Heart regular in rate and rhythm, No murmurs, gallops, or rubs no peripheral edema Abdominal: Soft Nontender, nom distended, no guarding, no rebound or rigidity, Normoactive bowel sounds No hepatomegaly, No splenomegaly, No palpable mass No abdominal wall hernia noted Skin: Normal temperature, tone, texture, turgor, No induration No subcutaneous nodules, No rash, lesions, No ulcers Extremities:No digital cyanosis No clubbing, Pedal pulses intact and symmetrical Radial pulses intact and symmetrical Normal gait and station, No calf tenderness, right BKA Psychiatric: Alert and oriented to person, place and time, Appropriate affect Intact judgement Neuro: Muscles Strength 5/5 in all 4 extremities, Sensation to light touch grossly present throughout, Cranial nerves II-XII grossly intact. No focal sensory deficits - Labs CBC & Chem 7: 02/11/18 07:54 02/12/18 07:19 Labs: Abnormal Lab Results - Last 24 Hours (Table) 02/11/18 02/11/18 02/12/18 Range/Units 16:36 19:48 07:04 Sodium (137-145) mmol/L Carbon Dioxide (22-30) mmol/L BUN (9-20) mg/dL Creatinine (0.66-1.25) mg/dL Glucose (74-99) mg/dL POC Glucose (mg/dL) 337 H 250 H 261 H (75-99) mg/dL Calcium (8.4-10.2) mg/dL Total Protein (6.3-8.2) g/dL Albumin (3.5-5.0) g/dL Triglycerides (<150) mg/dL 02/12/18 02/12/18 Range/Units 07:19 11:36 Sodium 132 L (137-145) mmol/L Carbon Dioxide 21 L (22-30) mmol/L BUN 78 H (9-20) mg/dL Creatinine 5.34 H (0.66-1.25) mg/dL Glucose 235 H (74-99) mg/dL POC Glucose (mg/dL) 319 H (75-99) mg/dL Calcium 8.1 L (8.4-10.2) mg/dL Total Protein 5.3 L (6.3-8.2) g/dL Albumin 2.5 L (3.5-5.0) g/dL Triglycerides 224 H (<150) mg/dL Microbiology - Last 24 Hours (Table) 02/07/18 03:13 Blood Culture - Preliminary Blood No Growth after 120 hours 02/06/18 21:48 Blood Culture - Preliminary Blood No Growth after 120 hours Assessment and Plan (1) GOKUL (acute kidney injury) Narrative/Plan: * Superimposed on CKD stage 3 with a creatinine trending up to 5.4 from 4.5 * Likely nonoliguric improving with hydration * Renal ultrasound negative for renal artery stenosis, urinalysis showing proteinuria * 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 * Kidney biopsy done by CT-guided yesterday Current Visit: Yes Status: Acute Code(s): N17.9 - ACUTE KIDNEY FAILURE, UNSPECIFIED SNOMED Code(s): 96012246 (2) Accelerated hypertension Narrative/Plan: * Blood pressure under much better control * Continue current regimen for now with Lasix 40 mg by mouth daily twice a day, Norvasc 5 mg twice a day , clonidine 0.2 mg 3 times a day, labetalol 400 mg by mouth 3 times a day, hydralazine 100 mg by mouth 3 times a day * Echocardiogram indicating normal ejection fraction Current Visit: Yes Status: Acute Code(s): I10 - ESSENTIAL (PRIMARY) HYPERTENSION SNOMED Code(s): 21942389 (3) Chronic kidney disease, stage 3 (moderate) Narrative/Plan: * Nephrotic range proteinuria likely from diabetic kidney disease but will need to rule out GN * Appreciate nephrology recommendations * Has associated anemia of chronic disease Current Visit: Yes Status: Acute Code(s): N18.3 - CHRONIC KIDNEY DISEASE, STAGE 3 (MODERATE) SNOMED Code(s): 505724508 (4) Type 2 diabetes mellitus with hyperglycemia Narrative/Plan: * A1c 10.3 indicating poor control * Increase basal insulin to 20 units at night, and continue correctional scale coverage Current Visit: Yes Status: Acute Code(s): E11.65 - TYPE 2 DIABETES MELLITUS WITH HYPERGLYCEMIA SNOMED Code(s): 610331740488213 (5) Hepatitis C Narrative/Plan: * Significantly elevated viral load 875, 830 * GI consulted and following, awaiting further recommendations Current Visit: Yes Status: Acute Code(s): B19.20 - UNSPECIFIED VIRAL HEPATITIS C WITHOUT HEPATIC COMA SNOMED Code(s): 06125794
[2018-02-12] MEDS: MORPHINE ORAL SOLN 10 MG/5 ML CUP PO PRN (12:53)
[2018-02-12 14:17] VITALS: BMI 22.7
[2018-02-12 16:55] LABS: Glucose,Whole Blood 81 mg/dL (75-99)
--- NOTE | 2018-02-12 18:04 | PN ---
PROGRESS NOTE Patient is seen for followup for an acute kidney injury. He had a kidney biopsy done yesterday. However, his kidney function has deteriorated since the patient's blood pressure is significantly low. His systolic is staying around 103-102 mmHg. All his antihypertensive medications are on hold. Urine output had also dropped. However, blood pressure is now slightly better with systolic in the 130s. We are waiting on the results of the biopsy. The Lasix is on hold. The patient denies any significant complaints today. This morning, blood pressure 141/67, heart rate 67 per minute. He is afebrile. Examination of the heart: S1, S2. Examination of the lungs: Bilateral breath sounds are heard. Abdomen is soft, nontender. Examination lower extremities shows left BKA. Patient has no significant edema. 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 LABS: Show sodium 132, potassium 4.3, BUN 78, serum creatinine 5.3. ASSESSMENT: 1. Acute kidney injury secondary to hemodynamics stability and recent significant drop in systolic blood pressure. Blood pressure is better and antihypertensive medications are on hold. We will need to resume some of his medications slowly in order to avoid rebound hypertension, particularly given the clonidine. 2. Chronic kidney disease, rule out underlying GN, status post kidney biopsy. Awaiting results of the biopsy, which should be back later on tonight. 3. Hepatitis C with positive hep C viral RNA rule out underlying . 4. Uncontrolled hypertension with history of positive cocaine on the drug screen previously. We will need to resume some of his antihypertensive medications carefully, particularly the clonidine to avoid rebound hypertension. MMODL / IJN: [id number] /
[2018-02-12 20:34] LABS: Glucose,Whole Blood 94 mg/dL (75-99)
[2018-02-12] MEDS: ATORVASTATIN 10 MG TAB PO SCH (21:48)
[2018-02-12] MEDS: INSULIN DETEMIR 100 UNIT/ML 10 ML VIAL SQ SCH (21:50)
[2018-02-13] MEDS: cloNIDine HCL 0.2 MG TAB PO SCH ×4 (00:02→23:25)
[2018-02-13] MEDS: MORPHINE ORAL SOLN 10 MG/5 ML CUP PO PRN (00:02)
[2018-02-13] MEDS: LABETALOL 200 MG TAB PO SCH ×4 (00:02→23:25)
[2018-02-13] MEDS: HEPARIN SODIUM,PORCINE 5,000 UNIT/ML 1 ML VIAL SQ SCH ×4 (00:02→23:25)
[2018-02-13] MEDS: hydrALAZINE HCL 50 MG TAB PO SCH ×3 (05:59→22:08)
[2018-02-13] MEDS: INSULIN ASPART 100 UNIT/ML 1 ML 10 ML VIAL SQ SCH ×4 (07:44→20:30)
[2018-02-13 07:53] LABS: Glucose,Whole Blood 69 mg/dL (75-99)
[2018-02-13] MEDS: SODIUM BICARBONATE TAB 650 MG TAB PO SCH (09:46)
[2018-02-13] MEDS: TAMSULOSIN 0.4 MG CAP.ER.24H PO SCH (09:46)
[2018-02-13] MEDS: PANTOPRAZOLE 40 MG TABLET PO SCH ×2 (09:46→17:34)
[2018-02-13] MEDS: GABAPENTIN 100 MG CAP PO SCH ×3 (09:46→22:09)
[2018-02-13] MEDS: amLODIPine 5 MG TAB PO SCH ×2 (09:46→20:36)
[2018-02-13] MEDS: NICOTINE 14MG/24HR PATCH TRANSDERM SCH (09:47)
[2018-02-13 09:56] LABS: Glucose,Whole Blood 92 mg/dL (75-99)
[2018-02-13 12:08] LABS: Glucose,Whole Blood 115 mg/dL (75-99)
[2018-02-13] MEDS: CALCIUM ACETATE 667 MG CAP PO SCH ×3 (12:42→17:33)
[2018-02-13 13:16] LABS: Albumin 2.8 g/dL (3.5-5.0); Calcium 8.7 mg/dL (8.4-10.2); Potassium 4.8 mmol/L (3.5-5.1); Total Bilirubin 0.3 mg/dL (0.2-1.3); Total Protein 5.8 g/dL (6.3-8.2)
--- NOTE | 2018-02-13 13:46 | P.PN ---
Subjective Progress Note Date: 02/13/18 Patient in good spirits today, blood sugars much improved fasting sugar high 80s this morning patient asymptomatic, having good urine output. Patient had his kidney biopsy earlier this week. Reports bowel movement No other acute events overnight Objective - Vital Signs Vital signs: Vital Signs Temp 97.1 F L 02/13/18 07:45 Pulse 78 02/13/18 07:45 Resp 16 02/13/18 07:45 BP 122/72 02/13/18 07:45 Pulse Ox 95 02/13/18 07:45 Intake & Output 02/12/18 02/13/18 02/13/18 18:59 06:59 18:59 Intake Total 1690 400 Output Total 400 1225 Balance 1290 -825 Weight 76 kg 75.5 kg Intake: Oral 1690 400 Output: Urine 400 1225 Uretheral (Delcid) 400 Other: Voiding Method Indwelling Catheter Indwelling Catheter Indwelling Catheter # Bowel Movements 1 - Exam Constitutional: No acute distress, conversant, pleasant Eyes: Anicteric sclerae, moist conjunctiva, no lid-lag, PERRLA ENMT: NC/AT,Oropharynx clear, no erythema, exudates Neck:Supple, FROM, no masses, or JVD, No carotid bruits; No thyromegaly Lungs: Clear to auscultation, Clear to percussion, Normal respiratory effort, no accessory muscle use Cardiovascular: Heart regular in rate and rhythm, No murmurs, gallops, or rubs no peripheral edema Abdominal: Soft Nontender, nom distended, no guarding, no rebound or rigidity, Normoactive bowel sounds No hepatomegaly, No splenomegaly, No palpable mass No abdominal wall hernia noted Skin: Normal temperature, tone, texture, turgor, No induration No subcutaneous nodules, No rash, lesions, No ulcers Extremities:No digital cyanosis No clubbing, Pedal pulses intact and symmetrical Radial pulses intact and symmetrical Normal gait and station, No calf tenderness, right BKA Psychiatric: Alert and oriented to person, place and time, Appropriate affect Intact judgement Neuro: Muscles Strength 5/5 in all 4 extremities, Sensation to light touch grossly present throughout, Cranial nerves II-XII grossly intact. No focal sensory deficits - Labs CBC & Chem 7: 02/11/18 07:54 02/13/18 12:38 Labs: Abnormal Lab Results - Last 24 Hours (Table) 02/13/18 02/13/18 Range/Units 07:42 11:54 POC Glucose (mg/dL) 69 L 115 H (75-99) mg/dL Microbiology - Last 24 Hours (Table) 02/07/18 03:13 Blood Culture - Final Blood No Growth after 144 hours 02/06/18 21:48 Blood Culture - Final Blood No Growth after 144 hours Assessment and Plan (1) GOKUL (acute kidney injury) Narrative/Plan: * Superimposed on CKD stage 3 with a creatinine trending down from 5.4-5.0 * Likely nonoliguric improving with hydration * Renal ultrasound negative for renal artery stenosis, urinalysis showing proteinuria * 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, superimposed on malignant hypertension * Kidney biopsy done by CT-guided earlier this week Current Visit: Yes Status: Acute Code(s): N17.9 - ACUTE KIDNEY FAILURE, UNSPECIFIED SNOMED Code(s): 01648715 (2) Accelerated hypertension Narrative/Plan: * Blood pressure under much better control * Continue current regimen for now with Lasix 40 mg by mouth daily twice a day, Norvasc 5 mg twice a day , clonidine 0.2 mg 3 times a day, labetalol 400 mg by mouth 3 times a day, hydralazine 100 mg by mouth 3 times a day * Echocardiogram indicating normal ejection fraction Current Visit: Yes Status: Acute Code(s): I10 - ESSENTIAL (PRIMARY) HYPERTENSION SNOMED Code(s): 59278903 (3) Chronic kidney disease, stage 3 (moderate) Narrative/Plan: * Nephrotic range proteinuria likely from diabetic kidney disease but will need to rule out GN * Appreciate nephrology recommendations * Has associated anemia of chronic disease Current Visit: Yes Status: Acute Code(s): N18.3 - CHRONIC KIDNEY DISEASE, STAGE 3 (MODERATE) SNOMED Code(s): 502415729 (4) Type 2 diabetes mellitus with hyperglycemia Narrative/Plan: * A1c 10.3 indicating poor control * Increase basal insulin to 20 units at night, and continue correctional scale coverage Current Visit: Yes Status: Acute Code(s): E11.65 - TYPE 2 DIABETES MELLITUS WITH HYPERGLYCEMIA SNOMED Code(s): 402202901638133 (5) Hepatitis C Narrative/Plan: * Significantly elevated viral load 875, 830 * GI consulted and following, awaiting further recommendations Current Visit: Yes Status: Acute Code(s): B19.20 - UNSPECIFIED VIRAL HEPATITIS C WITHOUT HEPATIC COMA SNOMED Code(s): 58922322 Plan: Disposition * Follow-up biopsy results continue to monitor * Anticipate discharge in 1-2 days
[2018-02-13 16:59] LABS: Glucose,Whole Blood 210 mg/dL (75-99)
--- NOTE | 2018-02-13 17:02 | PN ---
PROGRESS NOTE Patient is seen for followup for acute kidney injury and uncontrolled hypertension. Blood pressure had been significantly low with worsening of renal function and his antihypertensive medications were held. His blood pressure is now improved with systolic around 130 mmHg. Renal function is also improved with creatinine going down to 5.0 from 5.3 mg/dL yesterday. The patient has a Delcid catheter. He has had a 24 hour output of about 1.6 L. His kidney biopsy did come back as mainly chronic changes particularly from diabetic nephropathy. There was no evidence of any autoimmune disease or immune complex deposition to suggest any other underlying GN. There was also changes significant effects of uncontrolled hypertension. PHYSICAL EXAMINATION: On examination today, blood pressure was 133/68, heart rate 77 per minute. Patient is afebrile. Examination of the heart: S1, S2. Examination of the lungs: Bilateral breath sounds are heard. Abdomen is soft, nontender. Exam of lower extremity shows no evidence of edema. The patient has a BKA on the right side. LABS: Show sodium of 134, potassium 4.8, BUN 70, serum creatinine 5.04. ASSESSMENT: 1. Acute kidney injury. Most recently associated with fluctuations in blood pressure, currently improving with the improvement in blood pressure. Continue to avoid hypotension. There was no evidence of any acute interstitial nephritis or acute GN on the kidney biopsy. There were mostly changes of chronic diabetic nephropathy and uncontrolled hypertension with significant scarring and fibrosis noted as well. 2. Uncontrolled hypertension with previous UA positive for cocaine, currently improved. Blood pressure controlled. 3. Hepatitis C with positive hep C RNA. PLAN: The patient can be discharged from nephrology standpoint. If his blood pressure remains controlled by tomorrow he will need to follow up as outpatient with Nephrology as well as GI. MMODL / IJN: [id number] /
[2018-02-13] MEDS: ACETAMINOPHEN TAB 325 MG TAB PO PRN (17:33)
[2018-02-13 20:09] LABS: Glucose,Whole Blood 113 mg/dL (75-99)
[2018-02-13] MEDS: ATORVASTATIN 10 MG TAB PO SCH (20:35)
[2018-02-13] MEDS: INSULIN DETEMIR 100 UNIT/ML 10 ML VIAL SQ SCH (20:36)
[2018-02-13] MEDS ORDERED: PREGABALIN 100 MG CAP PO SCH (22:00)
[2018-02-14] MEDS: hydrALAZINE HCL 50 MG TAB PO SCH ×2 (06:22→13:25)
[2018-02-14 07:11] LABS: Glucose,Whole Blood 160 mg/dL (75-99)
[2018-02-14 07:12] LABS: Albumin 2.7 g/dL (3.5-5.0); Calcium 8.3 mg/dL (8.4-10.2); Potassium 4.5 mmol/L (3.5-5.1); Total Bilirubin 0.3 mg/dL (0.2-1.3); Total Protein 5.6 g/dL (6.3-8.2)
[2018-02-14] MEDS: CALCIUM ACETATE 667 MG CAP PO SCH ×2 (09:16→13:25)
[2018-02-14] MEDS: SODIUM BICARBONATE TAB 650 MG TAB PO SCH (09:16)
[2018-02-14] MEDS: PANTOPRAZOLE 40 MG TABLET PO SCH (09:16)
[2018-02-14] MEDS: TAMSULOSIN 0.4 MG CAP.ER.24H PO SCH (09:17)
[2018-02-14] MEDS: GABAPENTIN 100 MG CAP PO SCH (09:17)
[2018-02-14] MEDS: LABETALOL 200 MG TAB PO SCH ×2 (09:17→15:25)
[2018-02-14] MEDS: INSULIN ASPART 100 UNIT/ML 1 ML 10 ML VIAL SQ SCH ×2 (09:17→13:26)
[2018-02-14] MEDS: cloNIDine HCL 0.2 MG TAB PO SCH ×2 (09:17→15:25)
[2018-02-14] MEDS: HEPARIN SODIUM,PORCINE 5,000 UNIT/ML 1 ML VIAL SQ SCH (09:17)
[2018-02-14] MEDS: NICOTINE 14MG/24HR PATCH TRANSDERM SCH (09:17)
[2018-02-14] MEDS: amLODIPine 5 MG TAB PO SCH (09:34)
[2018-02-14 12:37] LABS: Glucose,Whole Blood 258 mg/dL (75-99)
--- NOTE | 2018-02-14 15:15 | PN ---
PROGRESS NOTE Patient is seen for followup for acute kidney injury, chronic kidney disease and uncontrolled hypertension. The patient had a kidney biopsy done this admission as hepatitis C viral RNA was positive and patient had proteinuria and hematuria. His biopsy showed significant chronic changes mainly from diabetic nephropathy and uncontrolled hypertension with severe scarring noted. There was no evidence of any immune complex deposition or any other underlying GN. The serum creatinine has improved. Blood pressure is also improved. There are plans for possible discharge today. EXAMINATION: This morning, blood pressure was 134/77, heart rate 76 per minute. He is afebrile. Examination of the heart: S1, S2. Examination of the lungs: Bilateral breath sounds are heard. Abdomen is soft, nontender. Examination lower extremities shows trace edema right lower extremity. The patient has left BKA. LABS: Show sodium 131, potassium 4.5, chloride 100, CO2 is 20, BUN 75, serum creatinine 4.69. ASSESSMENT: 1. Acute kidney injury associated with hemodynamic instability associated with drop in blood pressure from the previous pressures of around 200 systolic. Now that the blood pressure is much more steady, renal function has improved with creatinine decreasing to 4.69. He will need outpatient followup and may need to start dialysis soon. Currently, there is no indication to start renal replacement therapy. 2. Hyperkalemia associated with acute kidney injury, worsening renal function, currently off of BETTY inhibitors with improvement in potassium. 3. Uncontrolled hypertension with history of positive cocaine, currently improved on current antihypertensive regimen. We will continue the same medications for now. 4. History of left below-knee amputation. 5. Hepatitis C with positive hepatitis C viral RNA to follow up with GI. 6. Chronic kidney disease stage IV secondary to diabetic nephropathy, status post kidney biopsy showing significant chronic changes and severe scar. PLAN: Patient can be discharged. He needs to follow up as outpatient in about 1 week's time. Continue current antihypertensive regimen. Continue to avoid BETTY inhibitor/angiotensin. MMODL / IJN: [id number] /
[2018-02-14 16:27] VITALS: BP 113/76; PULSE 73; RESP 12; TEMP 97.1
--- NOTE | 2018-02-14 16:31 | P.DS ---
Providers Date of admission: 02/01/18 19:03 Expected date of discharge: 02/14/18 Attending physician: Amanda Otto MD Consults: 02/05/18 20:04 Consult Physician Routine Consulting Provider: Bambi Escobar Consult Reason/Comments: GOKUL Do you want consulting provider notified?: Already Contacted 02/06/18 14:58 Consult Physician Routine Consulting Provider: Helen Doss Consult Reason/Comments: chest pain Do you want consulting provider notified?: Already Contacted 02/06/18 16:30 Consult Physician Routine Consulting Provider: Afua Franz Consult Reason/Comments: ICU management Do you want consulting provider notified?: Already Contacted Primary care physician: Stated None - Discharge Diagnosis(es) (1) GOKUL (acute kidney injury) that was Status: Acute (2) Chronic kidney disease, stage 3 (moderate) Status: Acute (3) Type 2 diabetes mellitus with hyperglycemia Status: Acute (4) Hepatitis C Status: Acute (5) Malignant hypertension Status: Acute (6) Cocaine abuse Status: Acute (7) Urinary retention Status: Acute (8) Hyperkalemia Status: Acute (9) BPH (benign prostatic hyperplasia) Status: Acute Hospital Course: The patient is a 67-year-old -W[place] male with a past with a history of type 2 diabetes with peripheral vascular disease and history of right BKA was admitted with acute kidney injury superimposed on chronic kidney disease stage III With her usual baseline creatinine of 1.5-2.5. On presentation the patient's creatinine was 3.1 was initially thought that he had acute kidney injury secondary to prerenal azotemia and was started on IV fluids. His creatinine initially trended down but hadn't subsequently began climbing and is as high as 5.4, but was 4.7 on discharge and trending down. Nephrology was consulted and the patient was seen by Dr. Ramirez, the patient was noted to have nephrotic range proteinuria without any significant edema and there was concern for underlying glomerulonephritis given his prior history of hepatitis C, the patient subsequently had a CT guided kidney biopsy via IR. The patient had ongoing significantly elevated blood pressures and malignant hypertension that gradually became refractory despite multiple antihypertensive medications being initiated. He was subsequently transferred to the ICU after he complained of chest pain and started on a clevidipine drip, the patient's cardiac enzymes are negative, and EKG was negative for any suggestion of any acute ischemic. Patient had a stat echocardiogram that showed no evidence of any dissection or aortic regurgitation. MRI of the chest showed no evidence of thoracic aneurysm or dissection. GI was consulted given the patient's history of hepatitis and IV drug abuse, hep panel was positive for hep B surface antigen and hep C antibody , subsequent studies confirmed a viral hep C 1a DR[employer] titer of 875, 830 with positive hep B Be antibody with no DNA suggestive of a chronic hep B. The patient had ongoing elevated blood sugars and was resumed on his home insulin regimen along with correctional scale coverage, A1c 10.3 confirmed poorly controlled type 2 diabetes is a patient's regimen was adjusted for optimal control with Lantus 20 units subcu daily at bedtime. The patient's kidney biopsy showed no evidence of acute interstitial nephritis or acute glomerulonephritis, the changes are most consistent with chronic diabetic nephropathy superimposed on malignant hypertension. The patient was also noted to have urinary retention and a Delcid catheter was placed. Eventually his blood pressure was controlled with Lasix, Norvasc, clonidine, labetalol and hydralazine. He was subsequently transferred to the assisted in stable condition with follow-up visits with a GI Dr. Neil and nephrology Dr. Escobar. This discharge process took approximately 35 minutes New prescriptions at discharge Clonidine 0.2 mg by mouth 3 times a day Norvasc 5 mg by mouth twice a day Hydralazine 100 mg by mouth 3 times a day Labetalol 400 mg by mouth 3 times a day PhosLo 667 mg by mouth 3 times a day with meals Sodium bicarbonate 650 mg by mouth daily Discharge physical Constitutional: No acute distress, conversant, pleasant Eyes: Anicteric sclerae, moist conjunctiva, no lid-lag, PERRLA ENMT: NC/AT,Oropharynx clear, no erythema, exudates Neck:Supple, FROM, no masses, or JVD, No carotid bruits; No thyromegaly Lungs: Clear to auscultation, Clear to percussion, Normal respiratory effort, no accessory muscle use Cardiovascular: Heart regular in rate and rhythm, No murmurs, gallops, or rubs no peripheral edema Abdominal: Soft Nontender, nom distended, no guarding, no rebound or rigidity, Normoactive bowel sounds No hepatomegaly, No splenomegaly, No palpable mass No abdominal wall hernia noted Skin: Normal temperature, tone, texture, turgor, No induration No subcutaneous nodules, No rash, lesions, No ulcers Extremities:No digital cyanosis No clubbing, Pedal pulses intact and symmetrical Radial pulses intact and symmetrical Normal gait and station, No calf tenderness, right BKA Psychiatric: Alert and oriented to person, place and time, Appropriate affect Intact judgement Neuro: Muscles Strength 5/5 in all 4 extremities, Sensation to light touch grossly present throughout, Cranial nerves II-XII grossly intact. No focal sensory deficits Patient Condition at Discharge: Good Plan - Discharge Summary Discharge Rx Participant: Yes New Discharge Prescriptions: New amLODIPine [Norvasc] 5 mg PO BID #60 tab Calcium Acetate [PhosLo] 667 mg PO TID-W/MEALS #90 cap cloNIDine HCL [Catapres] 0.2 mg PO Q8HR #90 tab hydrALAZINE HCL [Apresoline] 100 mg PO Q8H #90 tab Labetalol [Trandate] 400 mg PO Q8HR #90 tab Sodium Bicarbonate Tab 650 mg PO DAILY #30 tab Continue Gabapentin 800 mg PO TID #90 tab Simvastatin [Zocor] 20 mg PO HS #30 tab Tamsulosin [Flomax] 0.4 mg PO DAILY #30 cap Insulin Glulisine [Apidra Solostar] 8 - 10 unit SQ AC-TID Changed Insulin Glargine [Lantus] 20 unit SQ HS #0 Discontinued amLODIPine [Norvasc] 10 mg PO DAILY #30 tab Lisinopril [Zestril] 10 mg PO DAILY #30 tab glipiZIDE [Glucotrol] 5 mg PO TID Discharge Medication List Gabapentin 800 mg PO TID #90 tab 05/25/16 [Rx] Simvastatin [Zocor] 20 mg PO HS #30 tab 05/25/16 [Rx] Tamsulosin [Flomax] 0.4 mg PO DAILY #30 cap 07/05/17 [Rx] Insulin Glulisine [Apidra Solostar] 8 - 10 unit SQ AC-TID 01/30/18 [History] Calcium Acetate [PhosLo] 667 mg PO TID-W/MEALS #90 cap 02/14/18 [Rx] Insulin Glargine [Lantus] 20 unit SQ HS #0 02/14/18 [Rx] Labetalol [Trandate] 400 mg PO Q8HR #90 tab 02/14/18 [Rx] Sodium Bicarbonate Tab 650 mg PO DAILY #30 tab 02/14/18 [Rx] amLODIPine [Norvasc] 5 mg PO BID #60 tab 02/14/18 [Rx] cloNIDine HCL [Catapres] 0.2 mg PO Q8HR #90 tab 02/14/18 [Rx] hydrALAZINE HCL [Apresoline] 100 mg PO Q8H #90 tab 02/14/18 [Rx] Follow up Appointment(s)/Referral(s): Bambi Escobar MD [STAFF PHYSICIAN] - 1 Week (Office will contact patient to set up a follow up appt upon discharge) Alex Neil MD [STAFF PHYSICIAN] - 03/04/18 3:45 pm Patient Instructions/Handouts: Acute Kidney Injury (DC) Activity/Diet/Wound Care/Special Instructions: Cardiac, diabetic diet. Activity as tolerated, fall precautions. Please bladder scan , he has not voided since his Delcid has been removed, per Dr. Anguiano Discharge Disposition: TRANSFER TO SNF/ECF
--- NOTE | 2018-02-18 09:53 | CDI ---
Last Revision, May 2017 Documentation Clarification Form Date: 02/18/2018 9:28:00 AM From: Juliet Earzo Phone: If you have a question, please contact Lissette Valdez at [phone] between 8am and 5pm. Admit Date: 02/01/2018 7:03:00 PM Patient Name: Soren Mireles Visit Number: [id number] Discharge Date: 02/14/18 ATTENTION: The Clinical Documentation Specialists (CDI) and [facility] Coding Staff appreciate your assistance in clarifying documentation. Please respond to the clarification below the line at the bottom and electronically sign. The CDI & [facility] Coding staff will review the response and follow-up if needed. Please note: Queries are made part of the Legal Health Record. If you have any questions, please contact the author of this message via ITS. Helen Wiseman MD Congestive heart failure unknown type is documented in Dr. Anguiano's 01/31 progress note. Congestive heart failure, fluid overload is documented in Dr. Escobar's 02/09 progress note. History/Risk Factors: Patient adm for GOKUL and has a history of CKD, hypertension and diabetes. Patient also had an episode of hypertensive emergency on 02/06. Clinical Indicators: Fluid overload VS/Pulse OX: T. 97.3, P. 67, R. 16, BP 192/108, Pulse ox. 98% Echo Results: 01/31: Overall LV systolic function is normal with an EF between 55 - 60%. 02/06: Overall LV systolic function is low-normal with, an EF between 50 - 55%. Chest X Ray: 02/06: Heart is enlarged. Central vascularity is increased. Correlate for congestive heart failure, volume overload. Treatment: IV Lasix 02/04 - 02/06. In your professional opinion, can you please clarify the acuity and type of CHF if known? Diastolic Heart Failure: Acute Chronic Acute on Chronic Systolic & Diastolic Heart Failure: Acute Chronic Acute on Chronic Heart Failure Unable to Determine Other, please specify_Diastolic Heart Failure: Acute on Chronic_Diastolic Heart Failure: MTDD
--- NOTE | 2018-02-21 11:23 | ECHOF ---
Referral Reason:chest pain MEASUREMENTS -------- HEIGHT: 182.9 cm WEIGHT: 72.1 kg BP: Ao Diam: 3.9 cm (2.0 - 3.7) FINDINGS -------- Sinus rhythm. Overall left ventricular systolic function is normal with, an EF between 55 - 60 %. The aortic root is dilated measuring 3.9. There is a small, generalized pericardial effusion present. CONCLUSIONS -------- 1. Sinus rhythm. 2. Overall left ventricular systolic function is normal with, an EF between 55 - 60 %. 3. The aortic root is dilated measuring 3.9. 4. There is a small, generalized pericardial effusion present. SENIOR UNDERWRITING ASSISTANT: Samantha Posadas RDCS
== END 2018-02-14 17:05 | DRG 682 ==
LOC: EC 15:33 → 4MS4W 20:07 → OBSVTOIN 02-01 19:03 → 6ICU 02-06 15:12 → 3SUR 02-08 23:43
PROVIDERS: ADMIT Family Medicine; ATTEND Family Medicine
PROC: 0TB13ZX Excision of Left Kidney, Percutaneous Approach, Diagnostic (ICD-10-PCS; principal; 2018-02-11)
DX: N17.9 Acute kidney failure, unspecified (principal); I50.33 Acute on chronic diastolic (congestive) heart failure; B18.1 Chronic viral hepatitis B without delta-agent; E87.2 Acidosis; I16.1 Hypertensive emergency; B18.2 Chronic viral hepatitis C; D63.1 Anemia in chronic kidney disease; E11.22 Type 2 diabetes mellitus with diabetic chronic kidney disease; E11.51 Type 2 diabetes mellitus with diabetic peripheral angiopathy without gangrene; E11.65 Type 2 diabetes mellitus with hyperglycemia; E11.40 Type 2 diabetes mellitus with diabetic neuropathy, unspecified; E11.319 Type 2 diabetes mellitus with unspecified diabetic retinopathy without macular edema; E78.5 Hyperlipidemia, unspecified; E83.39 Other disorders of phosphorus metabolism; E86.0 Dehydration; E87.5 Hyperkalemia; F17.210 Nicotine dependence, cigarettes, uncomplicated; F32.9 Major depressive disorder, single episode, unspecified; F41.9 Anxiety disorder, unspecified; G89.29 Other chronic pain; J44.9 Chronic obstructive pulmonary disease, unspecified; K21.9 Gastro-esophageal reflux disease without esophagitis; M10.9 Gout, unspecified; N18.4 Chronic kidney disease, stage 4 (severe); N40.1 Benign prostatic hyperplasia with lower urinary tract symptoms; R33.8 Other retention of urine; T50.2X5A Adverse effect of carbonic-anhydrase inhibitors, benzothiadiazides and other diuretics, initial encounter; M54.9 Dorsalgia, unspecified; M79.631 Pain in right forearm; M79.672 Pain in left foot; R01.1 Cardiac murmur, unspecified; K58.1 Irritable bowel syndrome with constipation; R07.89 Other chest pain; M19.90 Unspecified osteoarthritis, unspecified site; M54.30 Sciatica, unspecified side; I16.0 Hypertensive urgency; Z59.0 Homelessness; Z79.4 Long term (current) use of insulin; Z79.899 Other long term (current) drug therapy; Z89.511 Acquired absence of right leg below knee; Z86.718 Personal history of other venous thrombosis and embolism; Z87.01 Personal history of pneumonia (recurrent); Z91.81 History of falling; Z86.14 Personal history of Methicillin resistant Staphylococcus aureus infection; Z83.3 Family history of diabetes mellitus
CPT/HCPCS: 36415; 71045; 71046; 71550; 76705; 77012; 80048; 80053; 80061; 80074; 80306; 81001; 82105; 82553; 82570; 82728; 83036; 83540; 83550; 83605; 83735; 84100; 84156; 84165; 84484; 85025; 85027; 85610; 86038; 86140; 86160; 86162; 86255; 86334; 86335; 86707; 86850; 86900; 86901; 87040; 87340; 87350; 87390; 87517; 87521; 87522; 87902; 93005; 93306; 93308; 93975; 96374; 96376; 99284

== ENCOUNTER 2018-02-19 23:06 | Inpatient (IN) | payer MEDICARE, OTHER ==
--- NOTE | 2018-02-19 23:44 | ED ---
General Adult HPI - General Source: patient, RN notes reviewed, old records reviewed Mode of arrival: EMS Limitations: no limitations <Soren Blakely - Last Filed: 02/20/18 00:44> <Phil Craft - Last Filed: 02/20/18 04:07> - General Chief complaint: Abdominal Pain Stated complaint: abd pain Time Seen by Provider: 02/19/18 23:09 - History of Present Illness Initial comments: 67-year-old male presents for evaluation of abdominal distention, concern for constipation, and mild dyspnea. Patient states that he has not had a bowel movement for the past several days. He he states that his abdomen has become increasingly more distended. He feels it is now affecting his breathing. He finds it difficult to take a deep breath. Denies significant abdominal pain. Denies nausea vomiting. Patient denies cough. Denies chest pain. Denies lower extremity pain or swelling. Denies fever or chills. (Soren Blakely) - Related Data Home Medications Medication Instructions Recorded Confirmed Insulin Glulisine [Apidra Solostar] 8 - 10 unit SQ AC-TID 01/30/18 02/19/18 Previous Rx's Medication Instructions Recorded Gabapentin 800 mg PO TID #90 tab 05/25/16 Simvastatin [Zocor] 20 mg PO HS #30 tab 05/25/16 Tamsulosin [Flomax] 0.4 mg PO DAILY #30 cap 07/05/17 Calcium Acetate [PhosLo] 667 mg PO TID-W/MEALS #90 cap 02/14/18 Insulin Glargine [Lantus] 20 unit SQ HS #0 02/14/18 Labetalol [Trandate] 400 mg PO Q8HR #90 tab 02/14/18 Sodium Bicarbonate Tab 650 mg PO DAILY #30 tab 02/14/18 amLODIPine [Norvasc] 5 mg PO BID #60 tab 02/14/18 cloNIDine HCL [Catapres] 0.2 mg PO Q8HR #90 tab 02/14/18 hydrALAZINE HCL [Apresoline] 100 mg PO Q8H #90 tab 02/14/18 Allergies Allergy/AdvReac Type Severity Reaction Status Date / Time No Known Allergies Allergy Verified 01/30/18 17:24 Review of Systems ROS Other: All systems not noted in ROS Statement are negative. <Soren Blakely - Last Filed: 02/20/18 00:44> ROS Other: All systems not noted in ROS Statement are negative. <Phil Craft - Last Filed: 02/20/18 04:07> ROS Statement: Those systems with pertinent positive or pertinent negative responses have been documented in the HPI. 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 History of Any Multi-Drug Resistant Organisms: MRSA Date of last positivie culture/infection: 07/02/17 MDRO Source:: toe Past Surgical History: Orthopedic Surgery Additional Past Surgical History / Comment(s): 07/27/14 R BKA, liver bx in [place], RT ORBIT reconstruction, fracture of left hip 03/20/2014 with surgery, LT ARM ORIF, SAM KNEES scoped, LT FINGER, colonoscopy, EGD, L hand sx, R inguinal hernia surgery x2, circumcism. Past Anesthesia/Blood Transfusion Reactions: No Reported Reaction Past Psychological History: Anxiety, Depression Smoking Status: Current every day smoker Past Alcohol Use History: Occasional Past Drug Use History: None Reported - Past Family History Father Additional Family Medical History / Comment(s): ulcers Mother Family Medical History: Diabetes Mellitus Additional Family Medical History / Comment(s): Mother in her 80's. Sister(s) Family Medical History: Diabetes Mellitus <Soren Blakely - Last Filed: 02/20/18 00:44> General Exam Limitations: no limitations General appearance: alert, in no apparent distress Head exam: Present: atraumatic, normocephalic Eye exam: Present: normal appearance, PERRL ENT exam: Present: mucous membranes dry Neck exam: Present: normal inspection. Absent: tenderness, meningismus Respiratory exam: Present: normal lung sounds bilaterally. Absent: respiratory distress, wheezes, rales, rhonchi Cardiovascular Exam: Present: regular rate, normal rhythm GI/Abdominal exam: Present: soft, distended. Absent: tenderness, guarding, rebound Extremities exam: Present: full ROM. Absent: normal inspection (Right BKA), pedal edema Neurological exam: Present: alert, oriented X3 Psychiatric exam: Present: normal affect, normal mood Skin exam: Present: warm, dry, intact. Absent: cyanosis, diaphoretic <Soren Blakely - Last Filed: 02/20/18 00:44> Course <Soren Blakely - Last Filed: 02/20/18 00:44> <Phil Craft - Last Filed: 02/20/18 04:07> Vital Signs 02/19/18 02/20/18 02/20/18 23:07 01:22 02:20 Temperature 97.5 F L Pulse Rate 73 69 72 Respiratory 22 20 18 Rate Blood Pressure 152/82 122/67 152/109 O2 Sat by Pulse 94 L 96 90 L Oximetry 02/20/18 02/20/18 02/20/18 02:30 02:35 02:59 Temperature Pulse Rate 66 64 71 Respiratory 16 14 16 Rate Blood Pressure 144/82 139/80 180/122 O2 Sat by Pulse 100 100 100 Oximetry 02/20/18 03:02 Temperature Pulse Rate 64 Respiratory 14 Rate Blood Pressure 139/82 O2 Sat by Pulse 100 Oximetry - Reevaluation(s) Reevaluation #1: 02/20/18 03:17 The patient was signed out to me by Dr. Blakely to follow-up computed tomography scan to ensure no evidence for bowel obstruction. Computed tomography scan did not show any evidence for bowel obstruction however did show anasarca of the abdominal wall. I placed the admission to Dr. Beyer's group and went to reevaluate the patient. Upon entering the room the patient was completely unresponsive and frothing at the mouth. He did have some twitching of the face and extremities. Almost appeared to be seizure-like. After multiple attempts of attempting to arouse the patient was unsuccessful. It was decided to intubate the patient for airway protection. Of note the patient was hypoxic in the 70s and obstructing at the time of examination. I intubated the patient with only 2 mg of Versed for sedation. Did not use any paralytic because of the hyperkalemia. No evidence for arrhythmia on the monitor. Pupils were examined and sluggish to light bilaterally. The right did seem to be a little larger than the left. I spoke with the nurse who stated that he had evaluated the patient approximate 45 minutes prior and the patient was sleeping however arousable and spoke to him. Dr. Blakely told me that the patient came in able to speak contributing to his history and thus this was an acute change. Computed tomography scan of the head was ordered. As well as an ABG. (Phil Craft) EKG Findings - EKG Comments: EKG Findings:: EKG: Normal sinus rhythm, rate of 70, SC interval 172, QRS duration 88, QTC 442, no ST segment elevation or depression <Soren Blakely - Last Filed: 02/20/18 00:44> Procedures - Intubation Sedative: Versed Mg Given: 2 Laryngoscope: Alfredo Size: 4 ET Tube Size: 8 ET Tube Uncuffed: Yes Tube Secured Depth (cm): 21 Tube Secured Location: lips Tube Placement Confirmation: visualized tube passing through cords, equal breath sounds bilaterally, confirmation by capnometry Patient Tolerated Procedure: well Intubation Complications: none <Phil Craft - Last Filed: 02/20/18 04:07> Medical Decision Making - Lab Data Result diagrams: 02/19/18 23:29 02/19/18 23:29 <Soren Blakely - Last Filed: 02/20/18 00:44> - Lab Data Result diagrams: 02/19/18 23:29 02/19/18 23:29 <Phil Craft - Last Filed: 02/20/18 04:07> - Medical Decision Making This is a 67-year-old male who came in for abdominal pain and constipation. He was found to have acute on chronic kidney disease and hyperkalemia without EKG changes. Computed tomography scan did not show any evidence for obstruction however shortly after this the patient became unresponsive and unresponsive. He was intubated for airway protection. CT of the head was performed which was unremarkable. ABG did not show any acute abnormalities. The patient will be going to ICU for further evaluation. Dr. Nunes was updated. The patient was admitted to Dr. Beyer. ([facility]) - Lab Data Lab Results 02/19/18 02/19/18 02/19/18 Range/Units 23:29 23:29 23:29 WBC 7.9 (3.8-10.6) k/uL RBC 2.87 L (4.30-5.90) m/uL Hgb 8.3 L (13.0-17.5) gm/dL Hct 25.7 L (39.0-53.0) % MCV 89.7 (80.0-100.0) fL MCH 28.9 (25.0-35.0) pg MCHC 32.3 (31.0-37.0) g/dL RDW 13.8 (11.5-15.5) % Plt Count 301 (150-450) k/uL Neutrophils % 77 % Lymphocytes % 15 % Monocytes % 5 % Eosinophils % 1 % Basophils % 0 % Neutrophils # 6.1 (1.3-7.7) k/uL Lymphocytes # 1.2 (1.0-4.8) k/uL Monocytes # 0.4 (0-1.0) k/uL Eosinophils # 0.1 (0-0.7) k/uL Basophils # 0.0 (0-0.2) k/uL Hypochromasia Slight PT (9.0-12.0) sec INR (<1.2) APTT (22.0-30.0) sec Sodium 132 L (137-145) mmol/L Potassium 5.8 H (3.5-5.1) mmol/L Chloride 98 (98-107) mmol/L Carbon Dioxide 23 (22-30) mmol/L Anion Gap 11 mmol/L BUN 109 H* (9-20) mg/dL Creatinine 7.65 H* (0.66-1.25) mg/dL Est GFR (CKD-EPI)AfAm 8 (>60 ml/min/1.73 sqM) Est GFR (CKD-EPI)NonAf 7 (>60 ml/min/1.73 sqM) Glucose 117 H (74-99) mg/dL Plasma Lactic Acid Driss 1.0 (0.7-2.0) mmol/L Calcium 8.8 (8.4-10.2) mg/dL Total Bilirubin 0.3 (0.2-1.3) mg/dL AST 42 (17-59) U/L ALT 37 (21-72) U/L Alkaline Phosphatase 85 (38-126) U/L Troponin I (0.000-0.034) ng/mL NT-Pro-B Natriuret Pep pg/mL Total Protein 6.4 (6.3-8.2) g/dL Albumin 3.1 L (3.5-5.0) g/dL Amylase 44 (30-110) U/L Lipase 60 (23-300) U/L 02/19/18 02/19/18 02/19/18 Range/Units 23:29 23:29 23:29 WBC (3.8-10.6) k/uL RBC (4.30-5.90) m/uL Hgb (13.0-17.5) gm/dL Hct (39.0-53.0) % MCV (80.0-100.0) fL MCH (25.0-35.0) pg MCHC (31.0-37.0) g/dL RDW (11.5-15.5) % Plt Count (150-450) k/uL Neutrophils % % Lymphocytes % % Monocytes % % Eosinophils % % Basophils % % Neutrophils # (1.3-7.7) k/uL Lymphocytes # (1.0-4.8) k/uL Monocytes # (0-1.0) k/uL Eosinophils # (0-0.7) k/uL Basophils # (0-0.2) k/uL Hypochromasia PT 9.7 (9.0-12.0) sec INR 1.0 (<1.2) APTT 27.9 (22.0-30.0) sec Sodium (137-145) mmol/L Potassium (3.5-5.1) mmol/L Chloride (98-107) mmol/L Carbon Dioxide (22-30) mmol/L Anion Gap mmol/L BUN (9-20) mg/dL Creatinine (0.66-1.25) mg/dL Est GFR (CKD-EPI)AfAm (>60 ml/min/1.73 sqM) Est GFR (CKD-EPI)NonAf (>60 ml/min/1.73 sqM) Glucose (74-99) mg/dL Plasma Lactic Acid Driss (0.7-2.0) mmol/L Calcium (8.4-10.2) mg/dL Total Bilirubin (0.2-1.3) mg/dL AST (17-59) U/L ALT (21-72) U/L Alkaline Phosphatase (38-126) U/L Troponin I <0.012 (0.000-0.034) ng/mL NT-Pro-B Natriuret Pep 39992 pg/mL Total Protein (6.3-8.2) g/dL Albumin (3.5-5.0) g/dL Amylase (30-110) U/L Lipase (23-300) U/L Disposition <Soren Blakely - Last Filed: 02/20/18 00:44> <Phil Craft - Last Filed: 02/20/18 04:07> Clinical Impression: Acute on chronic renal failure, Hyperkalemia, Constipation Disposition: ADMITTED IP TO THIS HOSP Condition: Critical
[2018-02-19 23:55] LABS: Basophils % (A) 0 %; Eosinophils # (A) 0.1 k/uL (0-0.7); Eosinophils % (A) 1 %; HCT 25.7 % (39.0-53.0); HGB 8.3 gm/dL (13.0-17.5); Hypochromasia Slight; Lymphocytes # (A) 1.2 k/uL (1.0-4.8); Lymphocytes % (A) 15 %; MCH 28.9 pg (25.0-35.0); MCHC 32.3 g/dL (31.0-37.0); MCV 89.7 fL (80.0-100.0); Mean Platelet Volume 7.8; Monocytes # (A) 0.4 k/uL (0-1.0); Monocytes % (A) 5 %; Neutrophils # (A) 6.1 k/uL (1.3-7.7); Neutrophils % (A) 77 %; Platelet Count 301 k/uL (150-450); RBC 2.87 m/uL (4.30-5.90); RDW 13.8 % (11.5-15.5); WBC 7.9 k/uL (3.8-10.6)
[2018-02-20 00:01] LABS: Prothrombin Time 9.7 sec (9.0-12.0)
[2018-02-20 00:02] LABS: Partial Thromboplastin Time 27.9 sec (22.0-30.0)
[2018-02-20 00:04] LABS: Albumin 3.1 g/dL (3.5-5.0); Calcium 8.8 mg/dL (8.4-10.2); Potassium 5.8 mmol/L (3.5-5.1); Total Bilirubin 0.3 mg/dL (0.2-1.3); Total Protein 6.4 g/dL (6.3-8.2)
[2018-02-20] MEDS ORDERED: SODIUM CHLORIDE 0.9% 500 ML 500 ML IV ONE (00:16)
--- NOTE | 2018-02-20 00:22 | XR ---
EXAMINATION TYPE: XR chest 2V DATE OF EXAM: 02/20/2018 COMPARISON: 02/09/2018 HISTORY: Difficulty breathing TECHNIQUE: Frontal and lateral views of the chest are obtained. FINDINGS: There is some blunting of the costophrenic angles. There is infiltrate at the right lung b ase. There is minimal infiltrate at the left lung base. There is no gross heart failure. There is sli ght blunting of the costophrenic angles. The bony thorax is intact. IMPRESSION: Pleural effusions and bilateral lower lobe pulmonary infiltrates. Infiltrate is improved on the left side and worse on the right side compared to old exam. No heart failure.
--- NOTE | 2018-02-20 00:26 | XR ---
EXAMINATION TYPE: XR KUB DATE OF EXAM: 02/20/2018 COMPARISON: NONE HISTORY: Abdominal pain TECHNIQUE: 2 views supine FINDINGS: There is retained fecal material throughout the colon to the distal descending colon. There is no sign of free air. There is vascular calcification. There are some small calcifications over th e right renal pelvis. There is very little fecal material in the rectosigmoid colon. This raises the possibility of obstruction of the lower descending colon. IMPRESSION: Constipation. No free air. Possible right renal calculi. There is a single distended loop of small bowel in the left lower quadrant that raises the possibility of a mechanical small bowel ob struction. Possible transition point at the distal descending colon that could be site of obstruction .
[2018-02-20] MEDS ORDERED: SODIUM CHLORIDE 0.9% 1,000 ML IV SCH (00:30)
--- NOTE | 2018-02-20 01:18 | CT ---
EXAMINATION TYPE: CT abdomen pelvis wo con DATE OF EXAM: 02/20/2018 COMPARISON: None HISTORY: Prior on synapse, ALINA, abd pain distention/constipation, done w/o iv contrast due to renal f unction CT DLP: 702.70 mGycm Automated exposure control for dose reduction was used. TECHNIQUE: Helical acquisition of images was performed from the lung bases through the pelvis. FINDINGS: There are bilateral pleural effusions. There is infiltrate and atelectasis at the lung bases. Heart a ppears slightly enlarged. Liver shows no focal defect. There are calcified gallstones. There is no evidence of splenic mass. Th ere is no evidence of a pancreatic mass. There is diffuse abdominal ascites. There is no adrenal mass. The kidneys have normal size. There is no hydronephrosis. I see no renal ca lculus. Ureters do not appear dilated. Abdominal aorta is atheromatous. I see no retroperitoneal catherine opathy. Small bowel is not dilated. The transverse colon is anterior to the body of the stomach. Ther e is some gas-filled large bowel in the anterior abdomen. There is gas and fecal material down to the rectum. Bladder distends smoothly. There is no evidence of a pelvic mass. There is diffuse subcutaneous edema around the entire abdomen. There is anterior subluxation of L4 in relation L5. There is degenerative disc space narrowing from L3 to S1. There is spurring of the endp lates. There is no lumbar compression fracture. I see no focal bone destruction. The bony pelvis appe ars intact. There is no evidence of inguinal hernia. There is small umbilical hernia that contains fa t. IMPRESSION: EXTENSIVE SUBCUTANEOUS EDEMA CONSISTENT WITH ANASARCA. CARDIOMEGALY WITH PLEURAL EFFUSIONS AND BASILA R PULMONARY INFILTRATES AND ATELECTASIS. CONGESTIVE HEART FAILURE IS POSSIBLE. ABDOMINAL ASCITES. Calcified gallstones.
[2018-02-20] MEDS ORDERED: NALOXONE 0.4 MG/ML 1 ML VIAL IV PRN (02:10)
[2018-02-20] MEDS ORDERED: SODIUM POLYSTYRENE SULFONATE 15 GM/60 ML BOTTLE PO STA ×2 (02:14→18:57)
[2018-02-20] MEDS ORDERED: MIDAZOLAM 2 MG/2 ML VIAL IV STA (02:40)
[2018-02-20] MEDS ORDERED: MIDAZOLAM 1 MG/ML 5 ML VIAL IV STA (02:40)
--- NOTE | 2018-02-20 03:09 | XR ---
EXAMINATION TYPE: XR chest 1V portable DATE OF EXAM: 02/20/2018 COMPARISON: Today 3 hours ago HISTORY: Tube placement TECHNIQUE: Single frontal view of the chest is obtained. FINDINGS: Endotracheal tube is 1 cm from the josefina. There is pulmonary edema. There are chest leads . Nasogastric tube appears in good position in the stomach. Heart appears enlarged. IMPRESSION: There is new pulmonary alveolar edema compared to last exam. There are probably small pl eural effusions. Endotracheal tube should be pulled back 2 cm.
[2018-02-20] MEDS: PROPOFOL 1,000 MG in EMPTY BAG 1 BAG IV SCH ×6 (03:10→23:59)
--- NOTE | 2018-02-20 03:33 | CT ---
EXAMINATION TYPE: CT brain wo con DATE OF EXAM: 02/20/2018 COMPARISON: 10/30/2017 HISTORY: Prior on synapse, pt became unresponsive, mental status change CT DLP: 995.50 mGycm Automated exposure control for dose reduction was used. FINDINGS: There is cerebral cortical atrophy. There is no mass effect nor midline shift. There is no sign of in tracranial hemorrhage. The calvarium is intact. Skull base is intact. There is mild mucosal thickenin g in the ethmoid air cells. There is some left frontal scalp thickening and calcification. This is un changed. IMPRESSION: CEREBRAL ATROPHY. NO ACUTE INTRACRANIAL ABNORMALITY. THERE IS NEW ETHMOID SINUSITIS COMPARED TO OLD E XAM.
[2018-02-20 03:42] LABS: ABG Base Excess 1.3 mmol/L; ABG HCO3 26 mmol/L (21-25); ABG PCO2 41 mmHg (35-45); ABG PH 7.41 (7.35-7.45); ABG PO2 58 mmHg (83-108); ABG TCO2 27 mmol/L (19-24)
[2018-02-20 04:40] LABS: ALT 34 U/L (21-72); AST 37 U/L (17-59); Albumin 2.6 g/dL (3.5-5.0); Alkaline Phosphatase 70 U/L (38-126); Anion Gap 9 mmol/L; Blood Urea Nitrogen 100 mg/dL (9-20); Calcium 8.2 mg/dL (8.4-10.2); Carbon Dioxide 24 mmol/L (22-30); Chloride 102 mmol/L (98-107); Potassium 4.7 mmol/L (3.5-5.1); Sodium 135 mmol/L (137-145); Total Bilirubin 0.2 mg/dL (0.2-1.3); Total Protein 5.7 g/dL (6.3-8.2)
[2018-02-20 05:58] LABS: Glucose <20 mg/dL (74-99)
[2018-02-20] MEDS: DEXTROSE 50%-WATER 50 ML SYRINGE IVP STA ×2 (06:02→09:46)
[2018-02-20 06:19] LABS: Glucose,Whole Blood 77 mg/dL (75-99)
[2018-02-20] MEDS ORDERED: DEXTROSE 50%-WATER 50 ML SYRINGE IVP STA ×5 (06:25→18:51)
[2018-02-20 06:49] LABS: Glucose,Whole Blood 109 mg/dL (75-99)
[2018-02-20 07:27] LABS: Glucose,Whole Blood 60 mg/dL (75-99)
[2018-02-20] MEDS ORDERED: DEXTROSE 5%-0.45% NACL 1,000 ML IV SCH (07:30)
[2018-02-20] MEDS: CALCIUM ACETATE 667 MG CAP PO SCH ×3 (07:43→17:48)
[2018-02-20] MEDS ORDERED: LABETALOL 200 MG TAB PO SCH (08:00)
[2018-02-20] MEDS ORDERED: cloNIDine HCL 0.1 MG TAB PO SCH (08:00)
[2018-02-20] MEDS: hydrALAZINE HCL 50 MG TAB PO SCH ×2 (08:17→11:44)
[2018-02-20 08:20] LABS: Glucose,Whole Blood 115 mg/dL (75-99)
[2018-02-20 08:24] LABS: Basophils % (A) 0 %; Eosinophils # (A) 0.1 k/uL (0-0.7); Eosinophils % (A) 2 %; HCT 21.8 % (39.0-53.0); HGB 7.1 gm/dL (13.0-17.5); Hypochromasia Slight; Lymphocytes # (A) 0.9 k/uL (1.0-4.8); Lymphocytes % (A) 19 %; MCH 29.1 pg (25.0-35.0); MCHC 32.5 g/dL (31.0-37.0); MCV 89.6 fL (80.0-100.0); Monocytes # (A) 0.3 k/uL (0-1.0); Monocytes % (A) 6 %; Neutrophils # (A) 3.5 k/uL (1.3-7.7); Neutrophils % (A) 71 %; Platelet Count 282 k/uL (150-450); RBC 2.43 m/uL (4.30-5.90); RDW 13.8 % (11.5-15.5); WBC 4.9 k/uL (3.8-10.6)
[2018-02-20 08:50] LABS: Magnesium 2.5 mg/dL (1.6-2.3); Phosphorus 3.9 mg/dL (2.5-4.5)
[2018-02-20] MEDS ORDERED: amLODIPine 5 MG TAB PO SCH (09:00)
[2018-02-20] MEDS ORDERED: GABAPENTIN 400 MG CAP PO SCH (09:00)
[2018-02-20 09:54] LABS: Glucose,Whole Blood 69 mg/dL (75-99)
[2018-02-20] MEDS: FUROSEMIDE 10 MG/ML 10 ML VIAL IV SCH ×2 (10:03→20:51)
--- NOTE | 2018-02-20 10:09 | P.NPCON ---
History of Present Illness - Reason for Consult acute renal failure, chronic renal failure - History of Present Illness Reason for consultation: Acute kidney injury and chronic kidney disease History of present illness: Patient is a 67-year-old male seen in renal consultation for acute kidney injury on chronic kidney disease. Patient has chronic kidney disease stage IV secondary to biopsy-proven diabetic kidney disease with severe chronicity. His baseline creatinine is in the range of 4-5. It was elevated at 7.65 this admission and is 7.26 from this morning. Patient presented to the hospital due to abdominal pain and distention. Patient admitted to constipation upon arrival. Subsequently the patient became unresponsive and was also noted to be hypoglycemic with blood sugar at 20. He was given 2 A of dextrose. He is currently intubated and sedated. He is nonoliguric. Patient underwent CAT scan of the abdomen and pelvis which revealed extensive subcutaneous edema and anasarca. He was also noted to have pleural effusions. Echocardiogram from earlier this month revealed ejection fraction of 50-55%. Hemodynamically he is stable. He is nonoliguric. He has a Delcid catheter in place. Vital signs are stable. General: The patient appeared well nourished and normally developed. HEENT: Head exam is unremarkable. Neck is without jugular venous distension. Intubated. LUNGS: Lungs are clear to auscultation and percussion. Breath sounds decreased. HEART: Rate and Rhythm are regular. First and second heart sounds normal. No murmurs, rubs or gallops. ABDOMEN: Abdominal exam reveals normal bowel sounds. Non-tender and non- distended. No evidence of peritonitis. EXTREMITITES: No clubbing, cyanosis, or edema. Right [id number] amputation noted. 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 History of Any Multi-Drug Resistant Organisms: MRSA Date of last positivie culture/infection: 07/02/17 MDRO Source:: toe Past Surgical History: Orthopedic Surgery Additional Past Surgical History / Comment(s): 07/27/14 R BKA, liver bx in [place], RT ORBIT reconstruction, fracture of left hip 03/20/2014 with surgery, LT ARM ORIF, SAM KNEES scoped, LT FINGER, colonoscopy, EGD, L hand sx, R inguinal hernia surgery x2, circumcism. Past Anesthesia/Blood Transfusion Reactions: No Reported Reaction Past Psychological History: Anxiety, Depression Smoking Status: Current every day smoker Past Alcohol Use History: Occasional Past Drug Use History: None Reported - Past Family History Father Additional Family Medical History / Comment(s): ulcers Mother Family Medical History: Diabetes Mellitus Additional Family Medical History / Comment(s): Mother in her 80's. Sister(s) Family Medical History: Diabetes Mellitus Medications and Allergies Home Medications Medication Instructions Recorded Confirmed Type Gabapentin 800 mg PO TID #90 tab 05/25/16 02/19/18 Rx Simvastatin [Zocor] 20 mg PO HS #30 tab 05/25/16 02/19/18 Rx Tamsulosin [Flomax] 0.4 mg PO DAILY #30 cap 07/05/17 02/19/18 Rx Insulin Glulisine [Apidra Solostar] 8 - 10 unit SQ AC-TID 01/30/18 02/19/18 History Calcium Acetate [PhosLo] 667 mg PO TID-W/MEALS #90 cap 02/14/18 02/19/18 Rx Insulin Glargine [Lantus] 20 unit SQ HS #0 02/14/18 02/19/18 Rx Labetalol [Trandate] 400 mg PO Q8HR #90 tab 02/14/18 02/19/18 Rx Sodium Bicarbonate Tab 650 mg PO DAILY #30 tab 02/14/18 02/19/18 Rx amLODIPine [Norvasc] 5 mg PO BID #60 tab 02/14/18 02/19/18 Rx cloNIDine HCL [Catapres] 0.2 mg PO Q8HR #90 tab 02/14/18 02/19/18 Rx hydrALAZINE HCL [Apresoline] 100 mg PO Q8H #90 tab 02/14/18 02/19/18 Rx Allergies Allergy/AdvReac Type Severity Reaction Status Date / Time No Known Allergies Allergy Verified 02/20/18 08:54 Physical Exam Vitals: Vital Signs Temp Pulse Resp BP BP Pulse Ox 02/20/18 09:28 93.3 F L 02/20/18 08:00 14 122/84 98 02/20/18 06:05 68 18 145/83 98 02/20/18 05:20 68 18 153/88 93 L 02/20/18 04:18 56 L 14 116/71 100 02/20/18 04:05 67 16 165/97 100 02/20/18 03:35 57 L 16 127/77 100 02/20/18 03:05 56 L 16 118/72 100 02/20/18 03:02 64 14 139/82 100 02/20/18 02:59 71 16 180/122 100 02/20/18 02:35 64 14 139/80 100 02/20/18 02:30 66 16 144/82 100 02/20/18 02:20 72 18 152/109 90 L 02/20/18 01:22 69 20 122/67 96 02/19/18 23:07 97.5 F L 73 22 152/82 94 L Intake and Output 02/19/18 02/20/18 02/20/18 22:59 06:59 14:59 Intake Total 122.449 Output Total 1000 Balance -877.551 Intake: IV 100 Dextrose 5%-0.45% NaCl 1, 100 000 ml @ 100 mls/hr IV . Q10H RAINE Rx#:[id number] Intake, IV Titration 22.449 Amount Propofol 1,000 mg In 22.449 Empty Bag 1 bag @ Titrate IV .Q0M RAINE Rx#: [id number] Output: Urine 1000 Other: Weight 77.111 kg Results - Lab Results Most recent lab results ABG pH 7.41 (7.35-7.45) 02/20/18 03:30 ABG pCO2 41 mmHg (35-45) 02/20/18 03:30 ABG pO2 58 mmHg (83-108) L* 02/20/18 03:30 ABG HCO3 26 mmol/L (21-25) H 02/20/18 03:30 ABG O2 Saturation 91.0 % (94-97) L 02/20/18 03:30 Calcium 8.2 mg/dL (8.4-10.2) L 02/20/18 03:30 Phosphorus 3.9 mg/dL (2.5-4.5) 02/20/18 03:30 Magnesium 2.5 mg/dL (1.6-2.3) H 02/20/18 03:30 02/20/18 03:30 02/20/18 03:30 Assessment and Plan Plan: Assessment: 1. Acute kidney injury secondary to ATN secondary to cardiorenal syndrome. Creatinine 7.65 on admission and is 7.26 this morning. 2. Chronic kidney disease stage IV with baseline creatinine in the range of 4- 5. Etiology is biopsy proven diabetic kidney disease. He is noted to have severe chronicity. 3. Hyperkalemia secondary to acute kidney injury. Improved. 4. Insulin-dependent diabetes mellitus. 5. Hypertension with chronic kidney disease. Currently controlled. Next line 5. Volume overload. 6. Diastolic CHF. 7. Acute hypoxic respiratory failure currently intubated. 8. Anemia of chronic kidney disease. Blood iron deficiency. 9. History of hepatitis C. He was to follow-up with GI as outpatient. Plan: I will decrease the rate of half normal saline to 50 mL an hour. Start Lasix 80 mg IV twice daily. Repeat electrolytes this evening. Avoid nephrotoxins. Strict I's and O's. If no improvement in his renal function over the next 24-48 hours, will initiate renal replacement therapy. Follow-up cultures. Decrease dose of Neurontin 200 mg 3 times daily. Thank you for the consultation. I will continue to follow the patient with you during his hospital stay.
[2018-02-20 10:38] LABS: Glucose,Whole Blood 133 mg/dL (75-99)
[2018-02-20] MEDS ORDERED: DEXTROSE 10% IN WATER 500 ML in EMPTY BAG 1 BAG IV SCH (11:15)
[2018-02-20] MEDS: TAMSULOSIN 0.4 MG CAP.ER.24H PO SCH (11:44)
[2018-02-20] MEDS: SODIUM BICARBONATE TAB 650 MG TAB PO SCH (11:47)
[2018-02-20 11:55] LABS: Glucose,Whole Blood 94 mg/dL (75-99)
[2018-02-20] MEDS ORDERED: IPRATROPIUM-ALBUTEROL 3 ML NEB INHALATION PRN (12:13)
--- NOTE | 2018-02-20 12:17 | P.CNPUL ---
History of Present Illness Consult date: 02/20/18 Requesting physician: Jillian Beyer Reason for consult: abnormal CXR/CT, other Chief complaint: Acute on chronic renal failure, delirium, hypoxemic respiratory failure History of present illness: This is a 67-year-old -[place] male, is brought to the emergency department on on 02/19/2018 at 2300 for evaluation of worsening dyspnea, abdominal distention and confusion. Patient has a past medical history of stage IV CKD, peripheral vascular disease with right below-knee amputation, COPD , diabetes mellitus, hyperlipidemia, hypertension, hepatitis B and hepatitis C viral infection, BPH, gout, previous history of DVT on anticoagulation, back pain, anxiety and depression, remote history of IV drug abuse, chronic anemia, and cocaine use. Patient was recently hospitalized at this hospital, for acute on chronic renal failure. Patient did have an admission to the intensive care during that hospitalization for hypertensive emergency, pulmonary edema, chest pain, patient was managed with Cleviprex, Lasix, lisinopril. Echocardiogram on 02/07/2018 showed left ventricular systolic function with EF of 50-55%, mild MR , mild TR, no pulmonary hypertension. Patient underwent renal biopsy confirmed diabetic kidney disease, stage IV CKD. Patient was discharged to [facility] on 02/14/2018. Yesterday patient was noted to be acting strange, he was attempting to squat down in the hallway go to the bathroom. He was reportedly constipated and had not had a bowel movement in several days. He was complaining of abdominal distention. Denied any nausea or vomiting. He was becoming more short of breath due to his abdominal distention. Denies any fever or chills. Chest x- ray in the emergency department showed pleural effusions and bilateral lower lobe pulmonary infiltrates. KUB abdomen showed constipation, no free air, possible right renal calculi, single distended loop of small bowel in the left lower quadrant, questionable small bowel obstruction. Abdomen/pelvis CT showed extensive subcutaneous edema consistent with anasarca, cardiomegaly with pleural effusions and basilar pulmonary infiltrates/or atelectasis. Brain CT showed cerebral atrophy, but no acute intracranial abnormality. While in the emergency department patient's condition had deteriorated, he became unresponsive, and frothing at the mouth. He was noted to have seizure type activity, and patient was intubated and placed on mechanical ventilator. Labs showed no evidence of leukocytosis, WBC is 7.9, hemoglobin is 8.3, sodium is 132 , potassium was 5.8, BUN was 107, and creatinine was 7.65. Troponin was negative, proBNP was elevated at 10,700. Postintubation blood gas was obtained , and showed pO2 58, pCO2 41, and pH of 7.41. Patient's blood glucose was checked and it was less than 20. Patient is on mechanical ventilator this morning, he is sedated, on propofol drip which is currently infusing at a rate of 35 mics per kilo per minute. He was placed on D5 half-normal saline at a rate of 50 ML per hour for persistent hypoglycemia, and patient's blood sugar was treated multiple times with rounds of D50. Patient is hypothermic this morning with a temp of 93.6 rectally, he is being warmed with a bear hugger, his current blood pressure is 118/75, patient is not on any vasopressor support , sinus rhythm on the monitor with a rate of 64 BPM. On vent settings are assist-control mode with a rate of 14, tidal volume of 500, FiO2 of 50% and PEEP of 5. This morning's chest x-ray shows new pulmonary alveolar edema, small pleural effusions and cardiomegaly.'s morning's lab work was reviewed, WBC is 4.9, hemoglobin is 7.1, sodium is 135, potassium is 4.7 after being treated with Kayexalate, insulin and D50. BUN is 100, creatinine is 7.26, patient was seen by nephrology, he was given a dose of IV Lasix 80 mg and he is producing 32-140 ML per hour urine. Review of Systems obtained from the chart, patient is sedated, on mechanical ventilator All systems: negative Constitutional: Denies chills, Denies fever Eyes: denies blurred vision, denies pain Ears, nose, mouth and throat: Denies headache, Denies sore throat Cardiovascular: Denies chest pain, Denies shortness of breath Respiratory: Denies cough Gastrointestinal: Denies abdominal pain, Denies diarrhea, Denies nausea, Denies vomiting Musculoskeletal: Denies myalgias Integumentary: Denies pruritus, Denies rash Neurological: Denies numbness, Denies weakness Psychiatric: Denies anxiety, Denies depression Endocrine: Denies fatigue, Denies weight change Past Medical History Past Medical History: COPD, Diabetes Mellitus, Deep Vein Thrombosis (DVT), Eye Disorder, GERD/Reflux, Hyperlipidemia, Hypertension, Liver Disease, Pneumonia, Prostate Disorder, Renal Disease Additional Past Medical History / Comment(s): Pt recently admitted to [facility] on 02/01/18 with acute on chronic kidney injury, malignant htn, urinary retention. cocaine abuse. Other hx: IDDM-poorly controlled with admissions for DKA and metabolic encephalopathies, severe sepsis with R foot gangrene with metabolic encephalopathy resulting in R BKA 07/2014, chronic renal failure with known history of stage III chronic kidney disease, electolyte abnormalities, DJD, NEUROPATHY bilateral legs and feet, pinch nerves on right neck and left hip, herniated disc causing sciatic pain, chronic back pain, falls, fracture lower left ribs, DVT leg, hepatitis B viral infection, Hepatits c- was going to [place] for interferon yrs ago that did not work, concussions, gout, IBS, BPH, gonorrhea. History of Any Multi-Drug Resistant Organisms: MRSA Date of last positivie culture/infection: 07/02/17 MDRO Source:: 2nd left toe Past Surgical History: Orthopedic Surgery Additional Past Surgical History / Comment(s): L renal biopsy, 07/27/14 R BKA, liver bx in [place], RT ORBIT reconstruction x 2, fracture of left hip 2013 with surgery, LT ARM ORIF, SAM KNEES scoped, LT FINGER, colonoscopy, EGD, L hand sx, R inguinal hernia surgery x2, circumcism. Past Anesthesia/Blood Transfusion Reactions: No Reported Reaction Smoking Status: Current every day smoker - Past Family History Father Additional Family Medical History / Comment(s): ulcers Mother Family Medical History: Diabetes Mellitus Additional Family Medical History / Comment(s): Mother in her 80's. Sister(s) Family Medical History: Diabetes Mellitus Medications and Allergies Home Medications Medication Instructions Recorded Confirmed Type Gabapentin 800 mg PO TID #90 tab 05/25/16 02/19/18 Rx Simvastatin [Zocor] 20 mg PO HS #30 tab 05/25/16 02/19/18 Rx Tamsulosin [Flomax] 0.4 mg PO DAILY #30 cap 07/05/17 02/19/18 Rx Insulin Glulisine [Apidra Solostar] 8 - 10 unit SQ AC-TID 08/30/18 09/19/18 History Calcium Acetate [PhosLo] 667 mg PO TID-W/MEALS #90 cap 02/14/18 02/19/18 Rx Insulin Glargine [Lantus] 20 unit SQ HS #0 02/14/18 02/19/18 Rx Labetalol [Trandate] 400 mg PO Q8HR #90 tab 02/14/18 02/19/18 Rx Sodium Bicarbonate Tab 650 mg PO DAILY #30 tab 02/14/18 02/19/18 Rx amLODIPine [Norvasc] 5 mg PO BID #60 tab 02/14/18 02/19/18 Rx cloNIDine HCL [Catapres] 0.2 mg PO Q8HR #90 tab 02/14/18 02/19/18 Rx hydrALAZINE HCL [Apresoline] 100 mg PO Q8H #90 tab 02/14/18 02/19/18 Rx Allergies Allergy/AdvReac Type Severity Reaction Status Date / Time No Known Allergies Allergy Verified 02/20/18 08:54 Physical Exam Vitals: Vital Signs Temp Pulse Pulse Resp BP BP Pulse Ox 02/20/18 11:00 64 14 118/75 02/20/18 10:00 93.6 F L 71 22 132/77 02/20/18 09:00 93.3 F L 69 16 133/71 02/20/18 08:00 71 14 122/84 98 02/20/18 06:05 68 18 145/83 98 02/20/18 05:20 68 18 153/88 93 L 02/20/18 04:18 56 L 14 116/71 100 02/20/18 04:05 67 16 165/97 100 02/20/18 03:35 57 L 16 127/77 100 02/20/18 03:05 56 L 16 118/72 100 02/20/18 03:02 64 14 139/82 100 02/20/18 02:59 71 16 180/122 100 02/20/18 02:35 64 14 139/80 100 02/20/18 02:30 66 16 144/82 100 02/20/18 02:20 72 18 152/109 90 L 02/20/18 01:22 69 20 122/67 96 02/19/18 23:07 97.5 F L 73 22 152/82 94 L Intake and Output 02/19/18 02/20/18 02/20/18 22:59 06:59 14:59 Intake Total 272.449 Output Total 1230 Balance -957.551 Intake: IV 250 Dextrose 5%-0.45% NaCl 1, 250 000 ml @ 50 mls/hr IV . Q20H RAINE Rx#:[id number] Intake, IV Titration 22.449 Amount Propofol 1,000 mg In 22.449 Empty Bag 1 bag @ Titrate IV .Q0M RAINE Rx#: [id number] Output: Urine 1230 Other: Voiding Method Indwelling Catheter Weight 77.111 kg GENERAL EXAM: Sedated, 67-year-old -[place] male, intubated, on mechanical ventilator, comfortable in no apparent distress. OG tube is present to low intermittent suction, with small amount of ruiz colored output HEAD: Normocephalic/atraumatic. EYES: Normal reaction of pupils, equal size. Conjunctiva pink, sclera white. NOSE: Clear with pink turbinates. THROAT: No erythema or exudates. NECK: No masses, no JVD, no thyroid enlargement, no adenopathy. CHEST: No chest wall deformity. Symmetrical expansion. LUNGS: Equal air entry with no crackles, wheeze, rhonchi or dullness. CVS: Regular rate and rhythm, normal S1 and S2, no gallops, no murmurs, no rubs ABDOMEN: Distended, nontender. No guarding or rigidity. No organs could be palpated, bowel sounds are extremely hypoactive. Patient has evidence of third spacing, anasarca EXTREMITIES: No clubbing, bilateral lower edema, 1+, patient has right below the knee amputation MUSCULOSKELETAL: Muscle strength and tone normal. SPINE: No scoliosis or deformity SKIN: No rashes CENTRAL NERVOUS SYSTEM: Sedated on mechanical ventilator PSYCHIATRIC: Unable to assess, patient is sedated Results - Laboratory Findings CBC and BMP: 02/20/18 03:30 02/20/18 03:30 ABG ABG pH 7.41 (7.35-7.45) 02/20/18 03:30 ABG pCO2 41 mmHg (35-45) 02/20/18 03:30 ABG pO2 58 mmHg (83-108) L* 02/20/18 03:30 ABG O2 Saturation 91.0 % (94-97) L 02/20/18 03:30 PT/INR, D-dimer PT 9.7 sec (9.0-12.0) 02/19/18 23:29 INR 1.0 (<1.2) 02/19/18 23:29 Abnormal lab findings: Abnormal Labs 02/19/18 02/19/18 02/20/18 23:29 23:29 03:30 RBC 2.87 L Hgb 8.3 L Hct 25.7 L Lymphocytes # ABG pO2 58 L* ABG HCO3 26 H ABG Total CO2 27 H ABG O2 Saturation 91.0 L Sodium 132 L Potassium 5.8 H BUN 109 H* Creatinine 7.65 H* Glucose 117 H POC Glucose (mg/dL) Calcium Magnesium Total Protein Albumin 3.1 L 02/20/18 02/20/18 02/20/18 03:30 03:30 06:45 RBC 2.43 L Hgb 7.1 L Hct 21.8 L Lymphocytes # 0.9 L ABG pO2 ABG HCO3 ABG Total CO2 ABG O2 Saturation Sodium 135 L Potassium BUN 100 H Creatinine 7.26 H* Glucose <20 L* POC Glucose (mg/dL) 109 H Calcium 8.2 L Magnesium 2.5 H Total Protein 5.7 L Albumin 2.6 L 02/20/18 02/20/18 02/20/18 07:23 08:03 09:34 RBC Hgb Hct Lymphocytes # ABG pO2 ABG HCO3 ABG Total CO2 ABG O2 Saturation Sodium Potassium BUN Creatinine Glucose POC Glucose (mg/dL) 60 L 115 H 69 L Calcium Magnesium Total Protein Albumin 02/20/18 10:20 RBC Hgb Hct Lymphocytes # ABG pO2 ABG HCO3 ABG Total CO2 ABG O2 Saturation Sodium Potassium BUN Creatinine Glucose POC Glucose (mg/dL) 133 H Calcium Magnesium Total Protein Albumin - Diagnostic Findings Chest x-ray: report reviewed, image reviewed Additional studies: Brain CT results, EKG, abdomen/pelvis CT results, KUB x-ray reviewed Assessment and Plan Plan: Assessment: #1. Acute hypoxemic respiratory failure secondary to pulmonary edema, acute exacerbation of congestive heart failure with previously preserved ventricular systolic function #2. Abdominal pain and distention, computed tomography scan of abdomen and pelvis showed diffuse subcutaneous anasarca around the entire abdomen, but no bowel obstruction #3. Acute kidney injury secondary to ATN. #4. Chronic kidney disease stage IV, biopsy-proven diabetic kidney disease #5. Hyperkalemia related to the GOKUL, improved #6. Hypertension #7. Recent hospitalization hypertensive emergency, acute on chronic renal failure, discharge to subacute rehab on 02/14/2018 #8. Chronic anemia #9. Peripheral vascular disease with previous right below the knee amputation #10. COPD #11. Diabetes mellitus, with neuropathy, retinopathy, and nephropathy #12. Hepatitis B and hepatitis C infection with chronic liver disease or graft #13. Gout #14. Previous history of DVT, currently not on any anticoagulation #15. Chronic back pain, degenerative arthritis, sciatica #16. Anxiety, depression #17. remote history of IVDA, cocaine use Plan: Patient will remain on mechanical ventilator, today's chest x-ray shows worsening pulmonary edema, patient was given IV Lasix per nephrology. Not on any vasopressors, persistently hypoglycemic, he will be placed on 10% dextrose at a rate of 20 ML per hour. Blood cultures urine culture, sputum culture were sent, he and is being rewarmed. Urine drug screen will be sent. GI and DVT prophylaxis. Neurology consult. Patient is being considered for hemodialysis. We'll continue diuresis for now. Pt is making urine in the order of 30-140 ML per hour. Patient is awaiting a bed in intensive care, will be transferred to bed is available. Prognosis is extremely guarded. I performed a history & physical examination of the patient and discussed their management with my nurse practitioner, Rose Garcia. I reviewed the nurse practitioner's note and agree with the documented findings and plan of care. Lung sounds are coarse lung sounds. The findings and the impression was discussed with the patient. I attest to the documentation by the nurse practitioner. Time with Patient: Greater than 30
[2018-02-20 12:35] LABS: Appearance,Urine Clear (Clear); Bilirubin,Urine Negative (Negative); Blood,Urine Trace (Negative); Color,Urine Light Yellow; Glucose,Urine (UA) Negative (Negative); Ketones,Urine Negative (Negative); Leukocyte Esterase,Urine Negative (Negative); Mucus,Urine Rare /hpf; Nitrite,Urine Negative (Negative); Protein,Urine 2+ (Negative); RBC,Urine 26 /hpf (0-5); Squamous Epithelial Cell,Urine <1 /hpf (0-4); Urobilinogen,Urine <2.0 mg/dL (<2.0); WBC,Urine 5 /hpf (0-5)
[2018-02-20 12:38] LABS: Amphetamine Screen,Urine Not Detected (NotDetected); Barbiturate Screen,Urine Not Detected (NotDetected); Benzodiazepines Screen,Urine Not Detected (NotDetected); Cocaine Screen,Urine Not Detected (NotDetected); Methadone Screen, Urine Not Detected (NotDetected); Opiate Screen,Urine Detected (NotDetected); Oxycodone Screen, Urine Not Detected (NotDetected); Phencyclidine Screen,Urine Not Detected (NotDetected); Tricyclic Antidepressant,Urine Not Detected (NotDetected); Urn Cannabinoid Scrn Not Detected (NotDetected)
[2018-02-20] MEDS ORDERED: HEPARIN SODIUM 1,000 UN/ML (10ML VL) ONE (12:59)
[2018-02-20] MEDS ORDERED: LIDOCAINE 1% INJ 10MG/ML (20 ML MDV) ONE (12:59)
[2018-02-20 13:26] LABS: Glucose,Whole Blood 93 mg/dL (75-99)
[2018-02-20] MEDS: PANTOPRAZOLE 40 MG/10 ML VIAL IVP SCH (13:46)
[2018-02-20 14:31] LABS: Glucose,Whole Blood 87 mg/dL (75-99)
--- NOTE | 2018-02-20 15:33 | P.HPIM ---
History of Present Illness 67-year-old gentleman came in with cousins shortness of breath found to have pulmonary edema patient had a normal ejection fraction the past patient also has worsening kidney function patient had a stage IV chronic kidney disease with baseline creatinine around 4 and presently around 7 nephrology evaluated the patient. Patient does have pulmonary edema. She has extensive subcutaneous edema. Patient was drowsy lethargic and had a possible seizure because of which are patient was intubated patient is on assist-control ventilation with PEEP of 5. FiO2 of 50% tidal volume of 550 and set up respiratory rate of 14 and patient is breathing over the ventilator. I'm unable to get any can of history from the patient as patient is intubated patient has elevated BNP diffuse infiltrate on the chest x-ray subcutaneous edema consistent with heart failure exacerbation patient had persistent hypoglycemia because of which patient is on D5 normal side and lower legs along with high dose of Lasix. No fever no chills. No leukocytosis. Review of Systems Unable to obtain Past Medical History Past Medical History: COPD, Diabetes Mellitus, Deep Vein Thrombosis (DVT), Eye Disorder, GERD/Reflux, Hyperlipidemia, Hypertension, Liver Disease, Pneumonia, Prostate Disorder, Renal Disease Additional Past Medical History / Comment(s): Pt recently admitted to [facility] on 02/01/18 with acute on chronic kidney injury, malignant htn, urinary retention. cocaine abuse. Other hx: IDDM-poorly controlled with admissions for DKA and metabolic encephalopathies, severe sepsis with R foot gangrene with metabolic encephalopathy resulting in R BKA 07/2014, chronic renal failure with known history of stage III chronic kidney disease, electolyte abnormalities, DJD, NEUROPATHY bilateral legs and feet, pinch nerves on right neck and left hip, herniated disc causing sciatic pain, chronic back pain, falls, fracture lower left ribs, DVT leg, hepatitis B viral infection, Hepatits c- was going to [place] for interferon yrs ago that did not work, concussions, gout, IBS, BPH, gonorrhea. History of Any Multi-Drug Resistant Organisms: MRSA Date of last positivie culture/infection: 07/02/17 MDRO Source:: 2nd left toe Past Surgical History: Orthopedic Surgery Additional Past Surgical History / Comment(s): L renal biopsy, 07/27/14 R BKA, liver bx in [place], RT ORBIT reconstruction x 2, fracture of left hip 2013 with surgery, LT ARM ORIF, SAM KNEES scoped, LT FINGER, colonoscopy, EGD, L hand sx, R inguinal hernia surgery x2, circumcism. Past Anesthesia/Blood Transfusion Reactions: No Reported Reaction Smoking Status: Current every day smoker - Past Family History Father Additional Family Medical History / Comment(s): ulcers Mother Family Medical History: Diabetes Mellitus Additional Family Medical History / Comment(s): Mother in her 80's. Sister(s) Family Medical History: Diabetes Mellitus Medications and Allergies Home Medications Medication Instructions Recorded Confirmed Type Gabapentin 800 mg PO TID #90 tab 05/25/16 02/19/18 Rx Simvastatin [Zocor] 20 mg PO HS #30 tab 05/25/16 02/19/18 Rx Tamsulosin [Flomax] 0.4 mg PO DAILY #30 cap 07/05/17 02/19/18 Rx Insulin Glulisine [Apidra Solostar] 8 - 10 unit SQ AC-TID 01/30/18 02/19/18 History Calcium Acetate [PhosLo] 667 mg PO TID-W/MEALS #90 cap 02/14/18 02/19/18 Rx Insulin Glargine [Lantus] 20 unit SQ HS #0 02/14/18 02/19/18 Rx Labetalol [Trandate] 400 mg PO Q8HR #90 tab 02/14/18 02/19/18 Rx Sodium Bicarbonate Tab 650 mg PO DAILY #30 tab 02/14/18 02/19/18 Rx amLODIPine [Norvasc] 5 mg PO BID #60 tab 02/14/18 02/19/18 Rx cloNIDine HCL [Catapres] 0.2 mg PO Q8HR #90 tab 02/14/18 02/19/18 Rx hydrALAZINE HCL [Apresoline] 100 mg PO Q8H #90 tab 02/14/18 02/19/18 Rx Allergies Allergy/AdvReac Type Severity Reaction Status Date / Time No Known Allergies Allergy Verified 02/20/18 08:54 Physical Exam Vitals: Vital Signs Temp Pulse Pulse Resp BP BP Pulse Ox 02/20/18 14:00 97.6 F 73 14 135/80 02/20/18 12:45 97.6 F 67 14 115/69 02/20/18 12:00 96.5 F L 66 14 115/71 02/20/18 11:27 98 02/20/18 11:00 64 14 118/75 02/20/18 10:00 93.6 F L 71 22 132/77 02/20/18 09:00 93.3 F L 69 16 133/71 02/20/18 08:00 67 14 122/84 98 02/20/18 06:05 68 18 145/83 98 02/20/18 05:20 68 18 153/88 93 L 02/20/18 04:18 56 L 14 116/71 100 02/20/18 04:05 67 16 165/97 100 02/20/18 03:35 57 L 16 127/77 100 02/20/18 03:05 56 L 16 118/72 100 02/20/18 03:02 64 14 139/82 100 02/20/18 02:59 71 16 180/122 100 02/20/18 02:35 64 14 139/80 100 02/20/18 02:30 66 16 144/82 100 02/20/18 02:20 72 18 152/109 90 L 02/20/18 01:22 69 20 122/67 96 02/19/18 23:07 97.5 F L 73 22 152/82 94 L Intake and Output 02/20/18 02/20/18 02/20/18 06:59 14:59 22:59 Intake Total 425.845 52.17 Output Total 1490 Balance -1064.155 52.17 Intake: IV 340 Dextrose 10% in Water 500 90 ml In Empty Bag 1 bag @ 20 mls/hr IV .Q24H RAINE Rx #:[id number] Dextrose 5%-0.45% NaCl 1, 250 000 ml @ 50 mls/hr IV . Q20H RAINE Rx#:[id number] Intake, IV Titration 85.845 52.17 Amount Propofol 1,000 mg In 85.845 52.17 Empty Bag 1 bag @ Titrate IV .Q0M RAINE Rx#: [id number] Output: Urine 1490 Other: Voiding Method Indwelling Catheter Weight 77.111 kg PHYSICAL EXAMINATION: GENERAL: Patient is intubated sedated, HEENT: Pupils are round and equally reacting to light. EOMI. No scleral icterus. No conjunctival pallor. Normocephalic, atraumatic. No pharyngeal erythema. No thyromegaly. CARDIOVASCULAR: S1 and S2 present. No murmurs, rubs, or gallops. Does have elevated JVD PULMONARY: Chest is clear to auscultation, no wheezing or crackles. ABDOMEN: Soft, nontender, nondistended, normoactive bowel sounds. No palpable organomegaly. Anasarca MUSCULOSKELETAL: No joint swelling or deformity. EXTREMITIES: No cyanosis, clubbing, does have 2+ pitting pedal edema NEUROLOGICAL: Gross neurological examination did not reveal any focal deficits. SKIN: No rashes. Results CBC & Chem 7: 02/20/18 03:30 02/20/18 03:30 Labs: Abnormal Lab Results - Last 24 Hours (Table) 02/19/18 02/19/18 02/20/18 Range/Units 23:29 23:29 03:30 RBC 2.87 L (4.30-5.90) m/uL Hgb 8.3 L (13.0-17.5) gm/dL Hct 25.7 L (39.0-53.0) % Lymphocytes # (1.0-4.8) k/uL ABG pO2 58 L* (83-108) mmHg ABG HCO3 26 H (21-25) mmol/L ABG Total CO2 27 H (19-24) mmol/L ABG O2 Saturation 91.0 L (94-97) % Sodium 132 L (137-145) mmol/L Potassium 5.8 H (3.5-5.1) mmol/L BUN 109 H* (9-20) mg/dL Creatinine 7.65 H* (0.66-1.25) mg/dL Glucose 117 H (74-99) mg/dL POC Glucose (mg/dL) (75-99) mg/dL Calcium (8.4-10.2) mg/dL Magnesium (1.6-2.3) mg/dL Total Protein (6.3-8.2) g/dL Albumin 3.1 L (3.5-5.0) g/dL Urine Protein (Negative) Urine Blood (Negative) Urine RBC (0-5) /hpf Urine Mucus (None) /hpf Urine Opiates Screen (NotDetected) 02/20/18 02/20/18 02/20/18 Range/Units 03:30 03:30 06:45 RBC 2.43 L (4.30-5.90) m/uL Hgb 7.1 L (13.0-17.5) gm/dL Hct 21.8 L (39.0-53.0) % Lymphocytes # 0.9 L (1.0-4.8) k/uL ABG pO2 (83-108) mmHg ABG HCO3 (21-25) mmol/L ABG Total CO2 (19-24) mmol/L ABG O2 Saturation (94-97) % Sodium 135 L (137-145) mmol/L Potassium (3.5-5.1) mmol/L BUN 100 H (9-20) mg/dL Creatinine 7.26 H* (0.66-1.25) mg/dL Glucose <20 L* (74-99) mg/dL POC Glucose (mg/dL) 109 H (75-99) mg/dL Calcium 8.2 L (8.4-10.2) mg/dL Magnesium 2.5 H (1.6-2.3) mg/dL Total Protein 5.7 L (6.3-8.2) g/dL Albumin 2.6 L (3.5-5.0) g/dL Urine Protein (Negative) Urine Blood (Negative) Urine RBC (0-5) /hpf Urine Mucus (None) /hpf Urine Opiates Screen (NotDetected) 02/20/18 02/20/18 02/20/18 Range/Units 07:23 08:03 09:34 RBC (4.30-5.90) m/uL Hgb (13.0-17.5) gm/dL Hct (39.0-53.0) % Lymphocytes # (1.0-4.8) k/uL ABG pO2 (83-108) mmHg ABG HCO3 (21-25) mmol/L ABG Total CO2 (19-24) mmol/L ABG O2 Saturation (94-97) % Sodium (137-145) mmol/L Potassium (3.5-5.1) mmol/L BUN (9-20) mg/dL Creatinine (0.66-1.25) mg/dL Glucose (74-99) mg/dL POC Glucose (mg/dL) 60 L 115 H 69 L (75-99) mg/dL Calcium (8.4-10.2) mg/dL Magnesium (1.6-2.3) mg/dL Total Protein (6.3-8.2) g/dL Albumin (3.5-5.0) g/dL Urine Protein (Negative) Urine Blood (Negative) Urine RBC (0-5) /hpf Urine Mucus (None) /hpf Urine Opiates Screen (NotDetected) 02/20/18 02/20/18 02/20/18 Range/Units 10:20 11:00 11:00 RBC (4.30-5.90) m/uL Hgb (13.0-17.5) gm/dL Hct (39.0-53.0) % Lymphocytes # (1.0-4.8) k/uL ABG pO2 (83-108) mmHg ABG HCO3 (21-25) mmol/L ABG Total CO2 (19-24) mmol/L ABG O2 Saturation (94-97) % Sodium (137-145) mmol/L Potassium (3.5-5.1) mmol/L BUN (9-20) mg/dL Creatinine (0.66-1.25) mg/dL Glucose (74-99) mg/dL POC Glucose (mg/dL) 133 H (75-99) mg/dL Calcium (8.4-10.2) mg/dL Magnesium (1.6-2.3) mg/dL Total Protein (6.3-8.2) g/dL Albumin (3.5-5.0) g/dL Urine Protein 2+ H (Negative) Urine Blood Trace H (Negative) Urine RBC 26 H (0-5) /hpf Urine Mucus Rare H (None) /hpf Urine Opiates Screen Detected H (NotDetected) Thrombosis Risk Factor Assmnt - Choose All That Apply Any of the Below Risk Factors Present?: Yes Each Factor Represents 1 point: Abnormal pulmonary function (COPD), Serious lung disease incl. pneumonia (< 1month) Other Risk Factors: Yes Each Risk Factor Represents 2 Points: Age 61-74 years Each Risk Factor Represents 3 Points: History of DVT/PE Other congenital or acquired thrombophilia - If yes, enter type in comment: No Thrombosis Risk Factor Assessment Total Risk Factor Score: 7 Thrombosis Risk Factor Assessment Level: High Risk Assessment and Plan Plan: Assessment and Plan Plan: Acute hypoxic respiratory failure: Secondary to congestive heart failure chronic diastolic dysfunction with acute exacerbation patient was started on high-dose of Lasix. 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 -Hypotension is possibly secondary to sedation antidepressive medications will be held and restarted as needed. Hyperlipidemia
--- NOTE | 2018-02-20 15:49 | XR ---
EXAMINATION TYPE: XR chest 1V portable DATE OF EXAM: 02/20/2018 COMPARISON: 02/20/2018 HISTORY: Line placement TECHNIQUE: Single frontal view of the chest is obtained. FINDINGS: Right-sided central line seen with the tip overlying the right atrium. No sizable pneumoth orax. Cardiomegaly, bilateral consolidation, bilateral pleural effusion and diffuse interstitial pattern se en. Arthropathy of the shoulders. ET tube 2.9 cm above the josefina and NG tube is seen coursing into the abdomen in good position. Ather osclerotic change of the aorta noted. IMPRESSION: 1. Right-sided central line with the tip overlying the right atrium and no sizable pneumothorax. 2. Bilateral infiltrate and pleural effusion correlate for CHF.
[2018-02-20 16:17] LABS: Glucose,Whole Blood 78 mg/dL (75-99)
[2018-02-20 16:30] LABS: HCT 21.8 % (39.0-53.0); Hypochromasia Slight; MCH 28.9 pg (25.0-35.0); MCHC 31.8 g/dL (31.0-37.0); MCV 90.8 fL (80.0-100.0); Mean Platelet Volume 8.4; Platelet Count 294 k/uL (150-450); RDW 13.8 % (11.5-15.5); WBC 8.3 k/uL (3.8-10.6)
[2018-02-20] MEDS: IPRATROPIUM-ALBUTEROL 3 ML NEB INHALATION SCH ×3 (16:30→23:16)
[2018-02-20] MEDS: HEPARIN SODIUM,PORCINE 5,000 UNIT/ML 1 ML VIAL SQ SCH ×2 (16:37→23:59)
[2018-02-20] MEDS: CHLORHEXIDINE GLUCONATE 15 ML CUP MUCOUS MEM SCH ×2 (16:37→20:51)
[2018-02-20 16:43] LABS: Albumin 2.6 g/dL (3.5-5.0); Calcium 8.3 mg/dL (8.4-10.2); Magnesium 2.5 mg/dL (1.6-2.3); Phosphorus 5.1 mg/dL (2.5-4.5); Total Bilirubin 0.2 mg/dL (0.2-1.3); Total Protein 5.7 g/dL (6.3-8.2)
[2018-02-20] MEDS: GABAPENTIN 100 MG CAP PO SCH ×2 (16:49→21:25)
[2018-02-20 16:52] LABS: HGB 6.9 gm/dL (13.0-17.5)
--- NOTE | 2018-02-20 17:21 | OP ---
OPERATIVE REPORT PLACEMENT OF RIGHT SUBCLAVIAN TRIPLE-LUMEN CATHETER: PREOPERATIVE DIAGNOSIS: Acute respiratory failure and pulmonary edema. POSTOPERATIVE DIAGNOSIS: Acute respiratory failure and pulmonary edema. ANESTHESIA USED: 2 mL of 1% lidocaine. PROCEDURE: The patient was placed in a supine and Trendelenburg position. The area of the below the below the right clavicle was prepared in a sterile fashion and drapes were applied. The area was locally anesthetized. Using the inferior approach, the right subclavian vein was easily cannulated and a guidewire was placed. The area was dilated with a dilator, and then the catheter was advanced over the guidewire, and the guidewire was removed. Good flow was noted in the 3 different ports of the triple-lumen catheter. The line was secured using 3.0 silk sutures. Chest x-ray showed no evidence of any complications. MMODL / IJN: [id number] /
[2018-02-20 17:27] LABS: Glucose,Whole Blood 70 mg/dL (75-99)
--- NOTE | 2018-02-20 17:30 | PCN ---
PROCEDURE NOTE OPERATIVE REPORT: Placement of a right radial arterial line. PREOPERATIVE DIAGNOSIS: Acute respiratory failure and pulmonary edema. POSTOPERATIVE DIAGNOSIS: Acute respiratory failure and pulmonary edema. ANESTHESIA USED: None deployed. PROCEDURE: Right wrist was prepared in a sterile fashion. Drapes were applied. The right radial artery was palpated, cannulated easily and a guidewire was placed. A Cook catheter was inserted over the guidewire, and the guidewire was removed. Good blood flow and good waveform were noted, no evidence of any immediate complication. The line was secured using 3.0 silk sutures. MMODL / IJN: [id number] /
[2018-02-20] MEDS ORDERED: HYDROCORTISONE SUCCINATE 100 MG/2 ML VIAL IV STA (17:42)
[2018-02-20] MEDS: DEXTROSE 10% IN WATER 1,000 ML in EMPTY BAG 1 BAG IV SCH (17:50)
[2018-02-20 18:29] LABS: Glucose,Whole Blood 68 mg/dL (75-99)
[2018-02-20] MEDS ORDERED: ALBUTEROL NEBULIZED (CONC) 20 MG, SODIUM CHLORIDE 0.9% NEBULIZ 3 ML INHALATION ONE ×2 (19:00)
[2018-02-20] MEDS ORDERED: ALBUTEROL NEBULIZED 2.5 MG/3 ML INHALATION STA (19:28)
[2018-02-20 19:43] LABS: Glucose,Whole Blood 135 mg/dL (75-99)
[2018-02-20 20:58] LABS: Glucose,Whole Blood 128 mg/dL (75-99)
[2018-02-20] MEDS: ATORVASTATIN 10 MG TAB PO SCH (21:25)
[2018-02-20 21:26] LABS: Basophils % (A) 0 %; Eosinophils % (A) 0 %; HCT 23.9 % (39.0-53.0); HGB 7.7 gm/dL (13.0-17.5); Hypochromasia Slight; Lymphocytes # (A) 0.7 k/uL (1.0-4.8); Lymphocytes % (A) 8 %; MCH 29.3 pg (25.0-35.0); MCHC 32.1 g/dL (31.0-37.0); MCV 91.2 fL (80.0-100.0); Mean Platelet Volume 7.8; Monocytes # (A) 0.2 k/uL (0-1.0); Monocytes % (A) 2 %; Neutrophils # (A) 8.1 k/uL (1.3-7.7); Neutrophils % (A) 89 %; Platelet Count 318 k/uL (150-450); RBC 2.62 m/uL (4.30-5.90); RDW 13.9 % (11.5-15.5); WBC 9.1 k/uL (3.8-10.6)
[2018-02-20 22:15] LABS: Glucose,Whole Blood 136 mg/dL (75-99)
[2018-02-20 23:01] LABS: Glucose,Whole Blood 143 mg/dL (75-99)
[2018-02-21 00:01] LABS: Glucose,Whole Blood 148 mg/dL (75-99)
[2018-02-21] MEDS: DEXTROSE 10% IN WATER 1,000 ML in EMPTY BAG 1 BAG IV SCH ×2 (00:01→04:15)
[2018-02-21] MEDS ORDERED: ALBUTEROL NEBULIZED 2.5 MG/3 ML INHALATION ONE ×2 (00:50→01:15)
[2018-02-21 00:56] LABS: Glucose,Whole Blood 170 mg/dL (75-99)
[2018-02-21 02:00] LABS: Glucose,Whole Blood 183 mg/dL (75-99)
[2018-02-21 03:00] LABS: Glucose,Whole Blood 231 mg/dL (75-99)
[2018-02-21] MEDS: IPRATROPIUM-ALBUTEROL 3 ML NEB INHALATION SCH ×6 (03:09→23:31)
[2018-02-21 04:16] LABS: Glucose,Whole Blood 244 mg/dL (75-99)
[2018-02-21] MEDS: PROPOFOL 1,000 MG in EMPTY BAG 1 BAG IV SCH ×4 (04:19→21:53)
[2018-02-21 04:37] LABS: Basophils % (A) 0 %; Eosinophils % (A) 0 %; HCT 24.8 % (39.0-53.0); HGB 7.9 gm/dL (13.0-17.5); Hypochromasia Slight; Lymphocytes # (A) 0.7 k/uL (1.0-4.8); Lymphocytes % (A) 7 %; MCH 28.8 pg (25.0-35.0); MCHC 31.7 g/dL (31.0-37.0); Mean Platelet Volume 9.1; Monocytes # (A) 0.2 k/uL (0-1.0); Monocytes % (A) 2 %; Neutrophils # (A) 9.6 k/uL (1.3-7.7); Neutrophils % (A) 91 %; Platelet Count 314 k/uL (150-450); RBC 2.72 m/uL (4.30-5.90); WBC 10.6 k/uL (3.8-10.6)
[2018-02-21 04:52] LABS: Glucose,Whole Blood 239 mg/dL (75-99)
[2018-02-21 05:07] LABS: Calcium 8.3 mg/dL (8.4-10.2); Magnesium 2.5 mg/dL (1.6-2.3); Phosphorus 6.4 mg/dL (2.5-4.5); Potassium 5.9 mmol/L (3.5-5.1)
[2018-02-21 06:08] LABS: Glucose,Whole Blood 244 mg/dL (75-99)
[2018-02-21] MEDS ORDERED: ALBUTEROL NEBULIZED 2.5 MG/3 ML INHALATION STA (06:14)
[2018-02-21] MEDS ORDERED: INSULIN REGULAR 100 UNIT/ML VIAL IV ONE (06:16)
[2018-02-21] MEDS ORDERED: DEXTROSE 50%-WATER 50 ML SYRINGE IVP STA (06:16)
[2018-02-21 06:59] LABS: Glucose,Whole Blood 350 mg/dL (75-99)
--- NOTE | 2018-02-21 08:07 | XR ---
EXAMINATION TYPE: XR chest 1V portable DATE OF EXAM: 02/21/2018 COMPARISON: Prior chest x-ray 02/20/2018 HISTORY: Intubated TECHNIQUE: Single frontal view of the chest is obtained. FINDINGS: Endotracheal tube, right subclavian central venous catheter, NG tube are overlying appropr iate positions, patient remains rotated and the heart is enlarged. Bibasilar increased density persis ts. There is no evident pneumothorax. Interval obscured right hemidiaphragm. Central vascularity and interstitium are increased. IMPRESSION: Correlate for congestive heart failure with possible bilateral pleural effusion, follow- up recommended.
[2018-02-21 08:25] LABS: Glucose,Whole Blood 231 mg/dL (75-99)
[2018-02-21 08:56] LABS: Glucose,Whole Blood 254 mg/dL (75-99)
[2018-02-21] MEDS: HEPARIN SODIUM,PORCINE 5,000 UNIT/ML 1 ML VIAL SQ SCH ×2 (09:00→15:02)
[2018-02-21] MEDS: CHLORHEXIDINE GLUCONATE 15 ML CUP MUCOUS MEM SCH ×2 (09:00→20:37)
[2018-02-21] MEDS: FUROSEMIDE 10 MG/ML 10 ML VIAL IV SCH ×2 (09:01→15:05)
[2018-02-21] MEDS: PANTOPRAZOLE 40 MG/10 ML VIAL IVP SCH (09:03)
[2018-02-21 09:09] LABS: ABG Base Excess -0.8 mmol/L; ABG HCO3 24 mmol/L (21-25); ABG Oxygen Saturation 99.1 % (94-97); ABG PCO2 36 mmHg (35-45); ABG PH 7.43 (7.35-7.45); ABG PO2 108 mmHg (83-108); ABG TCO2 25 mmol/L (19-24)
[2018-02-21] MEDS: GABAPENTIN 100 MG CAP PO SCH ×3 (09:45→21:53)
[2018-02-21] MEDS: CALCIUM ACETATE 667 MG CAP PO SCH ×3 (09:45→17:15)
[2018-02-21] MEDS: SODIUM BICARBONATE TAB 650 MG TAB PO SCH (09:46)
[2018-02-21] MEDS: TAMSULOSIN 0.4 MG CAP.ER.24H PO SCH (09:46)
--- NOTE | 2018-02-21 09:49 | CONS ---
CONSULTATION DATE OF CONSULTATION: 02/20/2018. CHIEF COMPLAINT: Possible seizure. HISTORY OF PRESENT ILLNESS: Mr. Mireles is a 67-year-old male, who is being evaluated today on 02/20/2018 by the neurology service per the request of Dr. Beyer for a possible seizure. The patient was brought into [facility] Emergency Room with the main complaints of shortness of breath. He was found to have significant pulmonary edema. The patient does have stage 4 chronic kidney disease. The patient was being treated in the emergency room and when one of the nurses went into his room, he was found to be unresponsive. There was questionable jerking activity. His stat Accu-Chek showed significant hypoglycemia in the 20s according to the nursing staff. He was given D50 and intubated and sedated. He was transferred to the intensive care unit for closer monitoring. He is currently on IV Lasix and is responding well with good urine production. A stat CT scan of the brain was done, which showed no acute abnormalities. There was evidence of mild generalized atrophy. His CBC showed significant anemia with hemoglobin of 6.9 and hematocrit of 21%. His comprehensive metabolic profile showed hyperkalemia at 6.0 and BUN and creatinine were 98 and 7.2, respectively. His urine drug screen was positive for opiates. At the time of my evaluation, the patient is in his intensive care unit bed and continues to be on mechanical ventilation and on sedation with Diprivan. PAST MEDICAL HISTORY: Chronic obstructive pulmonary disease, diabetes, deep venous thrombosis, gastroesophageal reflux disease, dyslipidemia, hypertension, prostate disorder, chronic renal failure, history of hepatitis B and C, irritable bowel syndrome, benign prostatic hypertrophy, gout, history of MRSA, history of right rfjwr-[id number] amputation, history of toe amputation, knee surgeries, hernia repair, circumcision. SOCIAL HISTORY: The patient is a current every day smoker. There is a remote history of drug abuse. FAMILY HISTORY: Positive for diabetes. HOME MEDICATIONS: Reviewed in the chart. ALLERGIES: No known drug allergies. REVIEW OF SYSTEM: Unable to obtain as the patient is intubated and sedated. PHYSICAL EXAM: Vital signs show a temperature of 97.7, pulse 67, respiration 14, blood pressure 120/90. GENERAL APPEARANCE: The patient is a well-developed, male, who is intubated and sedated. HEENT: Normocephalic, atraumatic. Endotracheal tube is intact. Neck is supple with no masses felt. CARDIOVASCULAR: Regular rate and rhythm. ABDOMEN: Nondistended. Extremities showed a right [id number]-fwqg amputation. Mild edema is noticed on the left lower extremity. NEUROLOGICAL EXAM: The patient is sedated. He does not respond to any verbal or painful stimuli. No seizure-like activity is seen. No facial asymmetry is noticed on cranial nerve testing. Brainstem reflexes are intact. IMPRESSION: 1. Single episode of altered consciousness, questionable seizure. 2. Hypoglycemic episode. 3. Chronic renal failure. 4. Respiratory failure. 5. Pulmonary edema. RECOMMENDATION: The patient's episode that occurred in the emergency room was not witnessed, but the patient's mental status did suddenly change. If he did have a seizure, it was due to his severe hypoglycemia. No antiepileptic medications are recommended at this time. An EEG will be ordered. I did review his CT scan of the brain which showed no acute findings. Continue your current management/treatment of his pulmonary edema. He is responding well to Lasix. Nephrology has been consulted for the renal failure. Prognosis is guarded. We will reassess the patient once he is off of sedation. I will continue to follow with you. Further recommendations to follow. Thank you for allowing me to participate in the care of your patient. If you have any questions, please feel free to contact me. YANET / DIRK: [id number] /
[2018-02-21 10:10] LABS: Glucose,Whole Blood 248 mg/dL (75-99)
[2018-02-21] MEDS ORDERED: cloNIDine 0.2 MG/24HR PATCH TRANSDERM SCH (10:30)
[2018-02-21] MEDS ORDERED: SODIUM CHLORIDE 0.9% IVPB ONE (10:45)
[2018-02-21] MEDS ORDERED: VALPROATE SODIUM IVPB ONE (10:45)
[2018-02-21] MEDS: LABETALOL 200 MG TAB PO SCH ×3 (11:05→21:53)
[2018-02-21] MEDS: amLODIPine 10 MG TAB PO SCH (11:07)
[2018-02-21 11:12] LABS: Glucose,Whole Blood 252 mg/dL (75-99)
[2018-02-21] MEDS ORDERED: INSULIN REGULAR BOLUS (FROM DRIP BAG) IV PRN (12:15)
[2018-02-21] MEDS ORDERED: INSULIN REGULAR 100 UNIT in SODIUM CHLORIDE 0.9% 100 ML IV SCH (12:15)
[2018-02-21 12:17] LABS: Glucose,Whole Blood 269 mg/dL (75-99)
--- NOTE | 2018-02-21 12:25 | P.PN ---
Subjective Progress Note Date: 02/21/18 Principal diagnosis: Acute hypoxic respiratory failure secondary to pulmonary edema, diastolic congestive heart failure. This is a 67-year-old -[place] male, is brought to the emergency department on on 02/19/2018 at 2300 for evaluation of worsening dyspnea, abdominal distention and confusion. Patient has a past medical history of stage IV CKD, peripheral vascular disease with right below-knee amputation, COPD , diabetes mellitus, hyperlipidemia, hypertension, hepatitis B and hepatitis C viral infection, BPH, gout, previous history of DVT on anticoagulation, back pain, anxiety and depression, remote history of IV drug abuse, chronic anemia, and cocaine use. Patient was recently hospitalized at this hospital, for acute on chronic renal failure. Patient did have an admission to the intensive care during that hospitalization for hypertensive emergency, pulmonary edema, chest pain, patient was managed with Cleviprex, Lasix, lisinopril. Echocardiogram on 02/07/2018 showed left ventricular systolic function with EF of 50-55%, mild MR , mild TR, no pulmonary hypertension. Patient underwent renal biopsy confirmed diabetic kidney disease, stage IV CKD. Patient was discharged to [facility] on 02/14/2018. Yesterday patient was noted to be acting strange, he was attempting to squat down in the hallway go to the bathroom. He was reportedly constipated and had not had a bowel movement in several days. He was complaining of abdominal distention. Denied any nausea or vomiting. He was becoming more short of breath due to his abdominal distention. Denies any fever or chills. Chest x- ray in the emergency department showed pleural effusions and bilateral lower lobe pulmonary infiltrates. KUB abdomen showed constipation, no free air, possible right renal calculi, single distended loop of small bowel in the left lower quadrant, questionable small bowel obstruction. Abdomen/pelvis CT showed extensive subcutaneous edema consistent with anasarca, cardiomegaly with pleural effusions and basilar pulmonary infiltrates/or atelectasis. Brain CT showed cerebral atrophy, but no acute intracranial abnormality. While in the emergency department patient's condition had deteriorated, he became unresponsive, and frothing at the mouth. He was noted to have seizure type activity, and patient was intubated and placed on mechanical ventilator. Labs showed no evidence of leukocytosis, WBC is 7.9, hemoglobin is 8.3, sodium is 132 , potassium was 5.8, BUN was 107, and creatinine was 7.65. Troponin was negative, proBNP was elevated at 10,700. Postintubation blood gas was obtained , and showed pO2 58, pCO2 41, and pH of 7.41. Patient's blood glucose was checked and it was less than 20. Patient is on mechanical ventilator this morning, he is sedated, on propofol drip which is currently infusing at a rate of 35 mics per kilo per minute. He was placed on D5 half-normal saline at a rate of 50 ML per hour for persistent hypoglycemia, and patient's blood sugar was treated multiple times with rounds of D50. Patient is hypothermic this morning with a temp of 93.6 rectally, he is being warmed with a bear hugger, his current blood pressure is 118/75, patient is not on any vasopressor support , sinus rhythm on the monitor with a rate of 64 BPM. On vent settings are assist-control mode with a rate of 14, tidal volume of 500, FiO2 of 50% and PEEP of 5. This morning's chest x-ray shows new pulmonary alveolar edema, small pleural effusions and cardiomegaly.'s morning's lab work was reviewed, WBC is 4.9, hemoglobin is 7.1, sodium is 135, potassium is 4.7 after being treated with Kayexalate, insulin and D50. BUN is 100, creatinine is 7.26, patient was seen by nephrology, he was given a dose of IV Lasix 80 mg and he is producing 32-140 ML per hour urine. Patient was reevaluated today on 02/21/2018, remains on mechanical ventilation, ventilator settings are tidal volume of 500 assist control rate 14 FiO2 50% and PEEP of 5. ABG showed a pO2 of 108 pCO2 of 36 pH of 7.43. Potassium remains elevated at 5.9, BUN is 102 creatinine 6.92, patient remains on diuretics, and he is being followed by nephrology regarding his renal failure. May have to be seriously considered for hemodialysis. Chest x-ray continues to show evidence of pulmonary edema, hence more Lasix was given today. Urine output seems to be reasonable. Patient is negative about over a liter in the last 24 hours. Objective - Vital Signs Vital signs: Vital Signs Temp 98 F 02/21/18 08:00 Pulse 84 02/21/18 11:43 Resp 21 02/21/18 09:00 BP 160/83 02/21/18 07:00 Pulse Ox 95 02/21/18 09:00 Intake & Output 02/20/18 02/21/18 02/21/18 18:59 06:59 18:59 Intake Total 644.096 656.393 114.566 Output Total 2035 1415 50 Balance -1390.904 -758.607 64.566 Weight 86 kg Intake: IV 449 441 3 Dextrose 10% in Water 1, 45 0 000 ml In Empty Bag 1 bag @ 15 mls/hr IV .Q24H RAINE Rx#:[id number] Dextrose 10% in Water 500 190 360 ml In Empty Bag 1 bag @ 40 mls/hr IV .[id number] RAINE Rx#:[id number] Dextrose 5%-0.45% NaCl 1, 250 000 ml @ 50 mls/hr IV . Q20H RAINE Rx#:[id number] Pressure bag 9 36 3 Intake, IV Titration 195.096 215.393 111.566 Amount Propofol 1,000 mg In 195.096 215.393 111.566 Empty Bag 1 bag @ Titrate IV .Q0M RAINE Rx#: [id number] Output: Urine 2035 1415 50 Other: Voiding Method Indwelling Catheter Indwelling Catheter ABP, PAP, CO, CI - Last Documented Arterial Blood Pressure 174/66 - Exam GENERAL: Patient is intubated sedated, arousable, but does not follow any instructions. HEENT: Pupils are round and equally reacting to light. EOMI. No scleral icterus. No conjunctival pallor. Normocephalic, atraumatic. No pharyngeal erythema. No thyromegaly. CARDIOVASCULAR: S1 and S2 present. No murmurs, rubs, or gallops. Does have elevated JVD PULMONARY: Chest is clear to auscultation, no wheezing or crackles. ABDOMEN: Soft, nontender, nondistended, normoactive bowel sounds. No palpable organomegaly. Anasarca MUSCULOSKELETAL: No deformities, range of motion is intact. EXTREMITIES: No cyanosis, clubbing, does have 2+ pitting pedal edema. Right below-knee amputation is noted. NEUROLOGICAL: Fully sedated, on propofol, could not be assessed. SKIN: No rashes. Psychiatric: Cannot be assessed. - Labs CBC & Chem 7: 02/21/18 04:20 02/21/18 04:20 Labs: Abnormal Lab Results - Last 24 Hours (Table) 02/20/18 02/20/18 02/20/18 Range/Units 11:00 11:00 16:15 RBC (4.30-5.90) m/uL Hgb (13.0-17.5) gm/dL Hct (39.0-53.0) % Neutrophils # (1.3-7.7) k/uL Lymphocytes # (1.0-4.8) k/uL ABG Total CO2 (19-24) mmol/L ABG O2 Saturation (94-97) % Sodium 134 L (137-145) mmol/L Potassium 6.0 H (3.5-5.1) mmol/L BUN 98 H (9-20) mg/dL Creatinine 7.20 H* (0.66-1.25) mg/dL Glucose 67 L (74-99) mg/dL POC Glucose (mg/dL) (75-99) mg/dL Calcium 8.3 L (8.4-10.2) mg/dL Phosphorus 5.1 H (2.5-4.5) mg/dL Magnesium 2.5 H (1.6-2.3) mg/dL Total Protein 5.7 L (6.3-8.2) g/dL Albumin 2.6 L (3.5-5.0) g/dL Urine Protein 2+ H (Negative) Urine Blood Trace H (Negative) Urine RBC 26 H (0-5) /hpf Urine Mucus Rare H (None) /hpf Urine Opiates Screen Detected H (NotDetected) 02/20/18 02/20/18 02/20/18 Range/Units 16:15 17:24 18:26 RBC 2.40 L (4.30-5.90) m/uL Hgb 6.9 L* (13.0-17.5) gm/dL Hct 21.8 L (39.0-53.0) % Neutrophils # (1.3-7.7) k/uL Lymphocytes # (1.0-4.8) k/uL ABG Total CO2 (19-24) mmol/L ABG O2 Saturation (94-97) % Sodium (137-145) mmol/L Potassium (3.5-5.1) mmol/L BUN (9-20) mg/dL Creatinine (0.66-1.25) mg/dL Glucose (74-99) mg/dL POC Glucose (mg/dL) 70 L 68 L (75-99) mg/dL Calcium (8.4-10.2) mg/dL Phosphorus (2.5-4.5) mg/dL Magnesium (1.6-2.3) mg/dL Total Protein (6.3-8.2) g/dL Albumin (3.5-5.0) g/dL Urine Protein (Negative) Urine Blood (Negative) Urine RBC (0-5) /hpf Urine Mucus (None) /hpf Urine Opiates Screen (NotDetected) 02/20/18 02/20/18 02/20/18 Range/Units 19:39 20:57 20:59 RBC 2.62 L (4.30-5.90) m/uL Hgb 7.7 L (13.0-17.5) gm/dL Hct 23.9 L (39.0-53.0) % Neutrophils # 8.1 H (1.3-7.7) k/uL Lymphocytes # 0.7 L (1.0-4.8) k/uL ABG Total CO2 (19-24) mmol/L ABG O2 Saturation (94-97) % Sodium (137-145) mmol/L Potassium (3.5-5.1) mmol/L BUN (9-20) mg/dL Creatinine (0.66-1.25) mg/dL Glucose (74-99) mg/dL POC Glucose (mg/dL) 135 H 128 H (75-99) mg/dL Calcium (8.4-10.2) mg/dL Phosphorus (2.5-4.5) mg/dL Magnesium (1.6-2.3) mg/dL Total Protein (6.3-8.2) g/dL Albumin (3.5-5.0) g/dL Urine Protein (Negative) Urine Blood (Negative) Urine RBC (0-5) /hpf Urine Mucus (None) /hpf Urine Opiates Screen (NotDetected) 02/20/18 02/20/18 02/20/18 Range/Units 22:14 22:59 23:54 RBC (4.30-5.90) m/uL Hgb (13.0-17.5) gm/dL Hct (39.0-53.0) % Neutrophils # (1.3-7.7) k/uL Lymphocytes # (1.0-4.8) k/uL ABG Total CO2 (19-24) mmol/L ABG O2 Saturation (94-97) % Sodium (137-145) mmol/L Potassium 5.9 H (3.5-5.1) mmol/L BUN (9-20) mg/dL Creatinine (0.66-1.25) mg/dL Glucose (74-99) mg/dL POC Glucose (mg/dL) 136 H 143 H (75-99) mg/dL Calcium (8.4-10.2) mg/dL Phosphorus (2.5-4.5) mg/dL Magnesium (1.6-2.3) mg/dL Total Protein (6.3-8.2) g/dL Albumin (3.5-5.0) g/dL Urine Protein (Negative) Urine Blood (Negative) Urine RBC (0-5) /hpf Urine Mucus (None) /hpf Urine Opiates Screen (NotDetected) 02/20/18 02/21/18 02/21/18 Range/Units 23:58 00:54 01:59 RBC (4.30-5.90) m/uL Hgb (13.0-17.5) gm/dL Hct (39.0-53.0) % Neutrophils # (1.3-7.7) k/uL Lymphocytes # (1.0-4.8) k/uL ABG Total CO2 (19-24) mmol/L ABG O2 Saturation (94-97) % Sodium (137-145) mmol/L Potassium (3.5-5.1) mmol/L BUN (9-20) mg/dL Creatinine (0.66-1.25) mg/dL Glucose (74-99) mg/dL POC Glucose (mg/dL) 148 H 170 H 183 H (75-99) mg/dL Calcium (8.4-10.2) mg/dL Phosphorus (2.5-4.5) mg/dL Magnesium (1.6-2.3) mg/dL Total Protein (6.3-8.2) g/dL Albumin (3.5-5.0) g/dL Urine Protein (Negative) Urine Blood (Negative) Urine RBC (0-5) /hpf Urine Mucus (None) /hpf Urine Opiates Screen (NotDetected) 02/21/18 02/21/18 02/21/18 Range/Units 02:57 04:14 04:20 RBC 2.72 L (4.30-5.90) m/uL Hgb 7.9 L (13.0-17.5) gm/dL Hct 24.8 L (39.0-53.0) % Neutrophils # 9.6 H (1.3-7.7) k/uL Lymphocytes # 0.7 L (1.0-4.8) k/uL ABG Total CO2 (19-24) mmol/L ABG O2 Saturation (94-97) % Sodium (137-145) mmol/L Potassium (3.5-5.1) mmol/L BUN (9-20) mg/dL Creatinine (0.66-1.25) mg/dL Glucose (74-99) mg/dL POC Glucose (mg/dL) 231 H 244 H (75-99) mg/dL Calcium (8.4-10.2) mg/dL Phosphorus (2.5-4.5) mg/dL Magnesium (1.6-2.3) mg/dL Total Protein (6.3-8.2) g/dL Albumin (3.5-5.0) g/dL Urine Protein (Negative) Urine Blood (Negative) Urine RBC (0-5) /hpf Urine Mucus (None) /hpf Urine Opiates Screen (NotDetected) 02/21/18 02/21/18 02/21/18 Range/Units 04:20 04:51 06:07 RBC (4.30-5.90) m/uL Hgb (13.0-17.5) gm/dL Hct (39.0-53.0) % Neutrophils # (1.3-7.7) k/uL Lymphocytes # (1.0-4.8) k/uL ABG Total CO2 (19-24) mmol/L ABG O2 Saturation (94-97) % Sodium 133 L (137-145) mmol/L Potassium 5.9 H (3.5-5.1) mmol/L BUN 102 H* (9-20) mg/dL Creatinine 6.92 H (0.66-1.25) mg/dL Glucose 207 H (74-99) mg/dL POC Glucose (mg/dL) 239 H 244 H (75-99) mg/dL Calcium 8.3 L (8.4-10.2) mg/dL Phosphorus 6.4 H (2.5-4.5) mg/dL Magnesium 2.5 H (1.6-2.3) mg/dL Total Protein (6.3-8.2) g/dL Albumin (3.5-5.0) g/dL Urine Protein (Negative) Urine Blood (Negative) Urine RBC (0-5) /hpf Urine Mucus (None) /hpf Urine Opiates Screen (NotDetected) 02/21/18 02/21/18 02/21/18 Range/Units 06:56 07:59 08:54 RBC (4.30-5.90) m/uL Hgb (13.0-17.5) gm/dL Hct (39.0-53.0) % Neutrophils # (1.3-7.7) k/uL Lymphocytes # (1.0-4.8) k/uL ABG Total CO2 (19-24) mmol/L ABG O2 Saturation (94-97) % Sodium (137-145) mmol/L Potassium (3.5-5.1) mmol/L BUN (9-20) mg/dL Creatinine (0.66-1.25) mg/dL Glucose (74-99) mg/dL POC Glucose (mg/dL) 350 H 231 H 254 H (75-99) mg/dL Calcium (8.4-10.2) mg/dL Phosphorus (2.5-4.5) mg/dL Magnesium (1.6-2.3) mg/dL Total Protein (6.3-8.2) g/dL Albumin (3.5-5.0) g/dL Urine Protein (Negative) Urine Blood (Negative) Urine RBC (0-5) /hpf Urine Mucus (None) /hpf Urine Opiates Screen (NotDetected) 02/21/18 02/21/18 02/21/18 Range/Units 09:05 09:49 10:53 RBC (4.30-5.90) m/uL Hgb (13.0-17.5) gm/dL Hct (39.0-53.0) % Neutrophils # (1.3-7.7) k/uL Lymphocytes # (1.0-4.8) k/uL ABG Total CO2 25 H (19-24) mmol/L ABG O2 Saturation 99.1 H (94-97) % Sodium (137-145) mmol/L Potassium (3.5-5.1) mmol/L BUN (9-20) mg/dL Creatinine (0.66-1.25) mg/dL Glucose (74-99) mg/dL POC Glucose (mg/dL) 248 H 252 H (75-99) mg/dL Calcium (8.4-10.2) mg/dL Phosphorus (2.5-4.5) mg/dL Magnesium (1.6-2.3) mg/dL Total Protein (6.3-8.2) g/dL Albumin (3.5-5.0) g/dL Urine Protein (Negative) Urine Blood (Negative) Urine RBC (0-5) /hpf Urine Mucus (None) /hpf Urine Opiates Screen (NotDetected) 02/21/18 Range/Units 11:57 RBC (4.30-5.90) m/uL Hgb (13.0-17.5) gm/dL Hct (39.0-53.0) % Neutrophils # (1.3-7.7) k/uL Lymphocytes # (1.0-4.8) k/uL ABG Total CO2 (19-24) mmol/L ABG O2 Saturation (94-97) % Sodium (137-145) mmol/L Potassium (3.5-5.1) mmol/L BUN (9-20) mg/dL Creatinine (0.66-1.25) mg/dL Glucose (74-99) mg/dL POC Glucose (mg/dL) 269 H (75-99) mg/dL Calcium (8.4-10.2) mg/dL Phosphorus (2.5-4.5) mg/dL Magnesium (1.6-2.3) mg/dL Total Protein (6.3-8.2) g/dL Albumin (3.5-5.0) g/dL Urine Protein (Negative) Urine Blood (Negative) Urine RBC (0-5) /hpf Urine Mucus (None) /hpf Urine Opiates Screen (NotDetected) Microbiology - Last 24 Hours (Table) 02/20/18 07:55 Gram Stain - Preliminary Sputum 02/20/18 11:00 Urine Culture - Preliminary Urine,Catheterized Assessment and Plan Assessment: Impression: 1 acute hypoxic respiratory failure secondary to pulmonary edema, diastolic congestive heart failure. 2 acute on chronic kidney injury secondary to ATN. 3 profound hypoglycemia on presentation, has been on D10 which I have discontinued early this morning and he will be placed on insulin as per protocol /scale says his sugars are running high now. 4 multiple comorbidities including chronic anemia, chronic obstructive pulmonary disease, diabetes with diabetic neuropathy and nephropathy, history of hepatitis C infection and chronic liver disease, gout, previous history of deep vein thrombosis, chronic back pain, remote history of IV drug abuse, recent admission to the hospital with hypertensive emergency. Chronic kidney disease stage IV, biopsy-proven, related to diabetes. 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 EEG was done, results are pending. Had a long discussion with his sister yesterday, patient is quite ill, has multiple complex medical problems as noted above. He is critically ill, definitely not ready for any plans to extubate or wheezing at this point. Critical care time is 40 minutes. Time with Patient: Greater than 30
[2018-02-21 12:57] LABS: Glucose,Whole Blood 240 mg/dL (75-99)
--- NOTE | 2018-02-21 13:10 | EEG ---
ELECTROENCEPHALOGRAM REPORT DATE OF SERVICE: 02/21/2018 REASON FOR TESTING: Altered mental status. DESCRIPTION OF THE PROCEDURE: This EEG was performed using a 21 channel digital electroencephalograph, following international 10-20 system. DESCRIPTION OF THE RECORDING: From the beginning of the tracing, the background rhythm was mostly consisting of 5-6 Hz theta frequency in the posterior occipital leads. No obvious asymmetry is seen. During the tracing, propofol was held. Soon afterward that, the patient does have some myoclonic activities clinically according to the building maintenance technician. Triphasic waves are seen throughout the study. Photic stimulation was performed with no driving response seen. No pathological waves were elicited. Hyperventilation was not performed. INTERPRETATION: This EEG is abnormal due to the presence of generalized slowing of the background rhythm, mostly in the theta range. There also appears to be significant triphasic waves, which is commonly seen in hepatic pathology. Myoclonic activity was described. Clinical correlation is recommended. YANET / OTNN: [id number] /
--- NOTE | 2018-02-21 13:29 | P.PN ---
Subjective Patient is seen in follow-up for acute kidney injury on chronic kidney disease. Patient has chronic kidney disease stage IV secondary to biopsy-proven diabetic kidney disease with severe chronicity. His baseline creatinine has been in the range of 4-5. Creatinine was 7.65 on admission and is 6.92 today. Patient was noted to have volume overload with generalized anasarca and is currently maintained on Lasix 80 mg IV twice daily. He is nonoliguric. Blood pressures are on the higher side in home antihypertensives have been resumed. Vital signs are stable. General: The patient appeared well nourished and normally developed. Intubated. HEENT: Head exam is unremarkable. Neck is without jugular venous distension. LUNGS: Breath sounds decreased. HEART: Rate and Rhythm are regular. First and second heart sounds normal. No murmurs, rubs or gallops. ABDOMEN: Abdominal exam reveals normal bowel sounds. Non-tender and non- distended. No evidence of peritonitis. EXTREMITITES: No clubbing, cyanosis, or edema. Right BKA noted. Objective - Vital Signs Vital signs: Vital Signs Temp 98 F 02/21/18 08:00 Pulse 84 02/21/18 11:43 Resp 21 02/21/18 09:00 BP 160/83 02/21/18 07:00 Pulse Ox 95 02/21/18 09:00 Intake & Output 02/20/18 02/21/18 02/21/18 18:59 06:59 18:59 Intake Total 644.096 656.393 129.566 Output Total 2035 1415 750 Balance -1390.904 -758.607 -620.434 Weight 86 kg Intake: IV 449 441 18 Dextrose 10% in Water 1, 45 0 000 ml In Empty Bag 1 bag @ 15 mls/hr IV .Q24H [facility] Rx#:[id number] Dextrose 10% in Water 500 190 360 ml In Empty Bag 1 bag @ 40 mls/hr IV .[id number] [facility] Rx#:[id number] Dextrose 5%-0.45% NaCl 1, 250 000 ml @ 50 mls/hr IV . Q20H [facility] Rx#:[id number] Pressure bag 9 36 18 Intake, IV Titration 195.096 215.393 111.566 Amount Propofol 1,000 mg In 195.096 215.393 111.566 Empty Bag 1 bag @ Titrate IV .Q0M [facility] Rx#: [id number] Output: Urine 1746 3848 750 Other: Voiding Method Indwelling Catheter Indwelling Catheter ABP, PAP, CO, CI - Last Documented Arterial Blood Pressure 174/66 - Labs CBC & Chem 7: 02/21/18 04:20 02/21/18 04:20 Labs: Abnormal Lab Results - Last 24 Hours (Table) 02/20/18 02/20/18 02/20/18 Range/Units 16:15 16:15 17:24 RBC 2.40 L (4.30-5.90) m/uL Hgb 6.9 L* (13.0-17.5) gm/dL Hct 21.8 L (39.0-53.0) % Neutrophils # (1.3-7.7) k/uL Lymphocytes # (1.0-4.8) k/uL ABG Total CO2 (19-24) mmol/L ABG O2 Saturation (94-97) % Sodium 134 L (137-145) mmol/L Potassium 6.0 H (3.5-5.1) mmol/L BUN 98 H (9-20) mg/dL Creatinine 7.20 H* (0.66-1.25) mg/dL Glucose 67 L (74-99) mg/dL POC Glucose (mg/dL) 70 L (75-99) mg/dL Calcium 8.3 L (8.4-10.2) mg/dL Phosphorus 5.1 H (2.5-4.5) mg/dL Magnesium 2.5 H (1.6-2.3) mg/dL Total Protein 5.7 L (6.3-8.2) g/dL Albumin 2.6 L (3.5-5.0) g/dL 02/20/18 02/20/18 02/20/18 Range/Units 18:26 19:39 20:57 RBC (4.30-5.90) m/uL Hgb (13.0-17.5) gm/dL Hct (39.0-53.0) % Neutrophils # (1.3-7.7) k/uL Lymphocytes # (1.0-4.8) k/uL ABG Total CO2 (19-24) mmol/L ABG O2 Saturation (94-97) % Sodium (137-145) mmol/L Potassium (3.5-5.1) mmol/L BUN (9-20) mg/dL Creatinine (0.66-1.25) mg/dL Glucose (74-99) mg/dL POC Glucose (mg/dL) 68 L 135 H 128 H (75-99) mg/dL Calcium (8.4-10.2) mg/dL Phosphorus (2.5-4.5) mg/dL Magnesium (1.6-2.3) mg/dL Total Protein (6.3-8.2) g/dL Albumin (3.5-5.0) g/dL 02/20/18 02/20/18 02/20/18 Range/Units 20:59 22:14 22:59 RBC 2.62 L (4.30-5.90) m/uL Hgb 7.7 L (13.0-17.5) gm/dL Hct 23.9 L (39.0-53.0) % Neutrophils # 8.1 H (1.3-7.7) k/uL Lymphocytes # 0.7 L (1.0-4.8) k/uL ABG Total CO2 (19-24) mmol/L ABG O2 Saturation (94-97) % Sodium (137-145) mmol/L Potassium (3.5-5.1) mmol/L BUN (9-20) mg/dL Creatinine (0.66-1.25) mg/dL Glucose (74-99) mg/dL POC Glucose (mg/dL) 136 H 143 H (75-99) mg/dL Calcium (8.4-10.2) mg/dL Phosphorus (2.5-4.5) mg/dL Magnesium (1.6-2.3) mg/dL Total Protein (6.3-8.2) g/dL Albumin (3.5-5.0) g/dL 02/20/18 02/20/18 02/21/18 Range/Units 23:54 23:58 00:54 RBC (4.30-5.90) m/uL Hgb (13.0-17.5) gm/dL Hct (39.0-53.0) % Neutrophils # (1.3-7.7) k/uL Lymphocytes # (1.0-4.8) k/uL ABG Total CO2 (19-24) mmol/L ABG O2 Saturation (94-97) % Sodium (137-145) mmol/L Potassium 5.9 H (3.5-5.1) mmol/L BUN (9-20) mg/dL Creatinine (0.66-1.25) mg/dL Glucose (74-99) mg/dL POC Glucose (mg/dL) 148 H 170 H (75-99) mg/dL Calcium (8.4-10.2) mg/dL Phosphorus (2.5-4.5) mg/dL Magnesium (1.6-2.3) mg/dL Total Protein (6.3-8.2) g/dL Albumin (3.5-5.0) g/dL 02/21/18 02/21/18 02/21/18 Range/Units 01:59 02:57 04:14 RBC (4.30-5.90) m/uL Hgb (13.0-17.5) gm/dL Hct (39.0-53.0) % Neutrophils # (1.3-7.7) k/uL Lymphocytes # (1.0-4.8) k/uL ABG Total CO2 (19-24) mmol/L ABG O2 Saturation (94-97) % Sodium (137-145) mmol/L Potassium (3.5-5.1) mmol/L BUN (9-20) mg/dL Creatinine (0.66-1.25) mg/dL Glucose (74-99) mg/dL POC Glucose (mg/dL) 183 H 231 H 244 H (75-99) mg/dL Calcium (8.4-10.2) mg/dL Phosphorus (2.5-4.5) mg/dL Magnesium (1.6-2.3) mg/dL Total Protein (6.3-8.2) g/dL Albumin (3.5-5.0) g/dL 02/21/18 02/21/18 02/21/18 Range/Units 04:20 04:20 04:51 RBC 2.72 L (4.30-5.90) m/uL Hgb 7.9 L (13.0-17.5) gm/dL Hct 24.8 L (39.0-53.0) % Neutrophils # 9.6 H (1.3-7.7) k/uL Lymphocytes # 0.7 L (1.0-4.8) k/uL ABG Total CO2 (19-24) mmol/L ABG O2 Saturation (94-97) % Sodium 133 L (137-145) mmol/L Potassium 5.9 H (3.5-5.1) mmol/L BUN 102 H* (9-20) mg/dL Creatinine 6.92 H (0.66-1.25) mg/dL Glucose 207 H (74-99) mg/dL POC Glucose (mg/dL) 239 H (75-99) mg/dL Calcium 8.3 L (8.4-10.2) mg/dL Phosphorus 6.4 H (2.5-4.5) mg/dL Magnesium 2.5 H (1.6-2.3) mg/dL Total Protein (6.3-8.2) g/dL Albumin (3.5-5.0) g/dL 02/21/18 02/21/18 02/21/18 Range/Units 06:07 06:56 07:59 RBC (4.30-5.90) m/uL Hgb (13.0-17.5) gm/dL Hct (39.0-53.0) % Neutrophils # (1.3-7.7) k/uL Lymphocytes # (1.0-4.8) k/uL ABG Total CO2 (19-24) mmol/L ABG O2 Saturation (94-97) % Sodium (137-145) mmol/L Potassium (3.5-5.1) mmol/L BUN (9-20) mg/dL Creatinine (0.66-1.25) mg/dL Glucose (74-99) mg/dL POC Glucose (mg/dL) 244 H 350 H 231 H (75-99) mg/dL Calcium (8.4-10.2) mg/dL Phosphorus (2.5-4.5) mg/dL Magnesium (1.6-2.3) mg/dL Total Protein (6.3-8.2) g/dL Albumin (3.5-5.0) g/dL 02/21/18 02/21/18 02/21/18 Range/Units 08:54 09:05 09:49 RBC (4.30-5.90) m/uL Hgb (13.0-17.5) gm/dL Hct (39.0-53.0) % Neutrophils # (1.3-7.7) k/uL Lymphocytes # (1.0-4.8) k/uL ABG Total CO2 25 H (19-24) mmol/L ABG O2 Saturation 99.1 H (94-97) % Sodium (137-145) mmol/L Potassium (3.5-5.1) mmol/L BUN (9-20) mg/dL Creatinine (0.66-1.25) mg/dL Glucose (74-99) mg/dL POC Glucose (mg/dL) 254 H 248 H (75-99) mg/dL Calcium (8.4-10.2) mg/dL Phosphorus (2.5-4.5) mg/dL Magnesium (1.6-2.3) mg/dL Total Protein (6.3-8.2) g/dL Albumin (3.5-5.0) g/dL 02/21/18 02/21/18 02/21/18 Range/Units 10:53 11:57 12:48 RBC (4.30-5.90) m/uL Hgb (13.0-17.5) gm/dL Hct (39.0-53.0) % Neutrophils # (1.3-7.7) k/uL Lymphocytes # (1.0-4.8) k/uL ABG Total CO2 (19-24) mmol/L ABG O2 Saturation (94-97) % Sodium (137-145) mmol/L Potassium (3.5-5.1) mmol/L BUN (9-20) mg/dL Creatinine (0.66-1.25) mg/dL Glucose (74-99) mg/dL POC Glucose (mg/dL) 252 H 269 H 240 H (75-99) mg/dL Calcium (8.4-10.2) mg/dL Phosphorus (2.5-4.5) mg/dL Magnesium (1.6-2.3) mg/dL Total Protein (6.3-8.2) g/dL Albumin (3.5-5.0) g/dL Microbiology - Last 24 Hours (Table) 02/19/18 23:29 Blood Culture - Preliminary Blood No Growth after 24 hours 02/20/18 07:55 Gram Stain - Preliminary Sputum 02/20/18 11:00 Urine Culture - Preliminary Urine,Catheterized Assessment and Plan Plan: Assessment: 1. Acute kidney injury secondary to ATN secondary to cardiorenal syndrome. Creatinine 7.65 on admission and is 6.9 to this morning. 2. Chronic kidney disease stage IV with baseline creatinine in the range of 4- 5. Etiology is biopsy proven diabetic kidney disease. He is noted to have severe chronicity. 3. Hyperkalemia secondary to acute kidney injury. Medically treated with nebulized albuterol as well as IV insulin this morning. 4. Insulin-dependent diabetes mellitus. 5. Hypertension with chronic kidney disease. 5. Volume overload. 6. Diastolic CHF. 7. Acute hypoxic respiratory failure currently intubated. 8. Anemia of chronic kidney disease. Rule out iron deficiency. 9. History of hepatitis C. He was to follow-up with GI as outpatient. 10. Hyperphosphatemia secondary to acute kidney injury maintained on PhosLo. Plan: Increase Lasix to 80 mg IV 3 times daily. Follow-up potassium level. Avoid nephrotoxins. Strict I's and O's. Follow-up cultures. Decreased dose of Neurontin to 100 mg 3 times daily. Check iron studies. Wean FiO2. Continue to monitor renal function and urine output. Will assess for need for renal replacement therapy on a day-to-day basis.
[2018-02-21 14:05] LABS: Glucose,Whole Blood 239 mg/dL (75-99)
--- NOTE | 2018-02-21 14:13 | P.PN ---
Subjective -year-old gentleman was at came in with acute renal failure went into respiratory failure secondary to congestive heart failure exacerbation patient also has chronic kidney disease volume overload. Patient had normal ejection fraction the past patient is being treated for cardiorenal syndrome. Patient evidently had a seizure which was believed secondary to hyperglycemia although had an EEG after EEG patient was started on antiseizure medication. Neurology evaluated the patient. CAT scan of the head is essentially within normal limits and patient has rhonchus breath sounds crackles all over the lung palma patient continues to have pulmonary edema is diuresing well is minimal improvement in creatinine patient had hyperkalemia secondary to acute renal failure which improved with albuterol and Kayexlate, blood pressure improved and has gone high because of which patient was resumed on antidepressant medications. Patient is still on propofol drip assist-control ventilation. Objective - Vital Signs Vital signs: Vital Signs Temp 98.4 F 02/21/18 12:00 Pulse 82 02/21/18 13:30 Resp 14 02/21/18 13:30 BP 160/83 02/21/18 07:00 Pulse Ox 98 02/21/18 13:30 Intake & Output 02/20/18 02/21/18 02/21/18 18:59 06:59 18:59 Intake Total 644.096 656.393 188.022 Output Total 2035 1415 750 Balance -1390.904 -758.607 -561.978 Weight 86 kg Intake: IV 449 441 18 Dextrose 10% in Water 1, 45 0 000 ml In Empty Bag 1 bag @ 15 mls/hr IV .Q24H [facility] Rx#:[id number] Dextrose 10% in Water 500 190 360 ml In Empty Bag 1 bag @ 40 mls/hr IV .[id number] [facility] Rx#:[id number] Dextrose 5%-0.45% NaCl 1, 250 000 ml @ 50 mls/hr IV . Q20H [facility] Rx#:[id number] Pressure bag 9 36 18 Intake, IV Titration 195.096 215.393 170.022 Amount Insulin Regular 100 unit 5.05 In Sodium Chloride 0.9% 100 ml @ Per Protocol IV .Q0M [facility] Rx#:[id number] Propofol 1,000 mg In 195.096 215.393 164.972 Empty Bag 1 bag @ Titrate IV .Q0M [facility] Rx#: [id number] Output: Urine 2035 1415 750 Other: Voiding Method Indwelling Catheter Indwelling Catheter Indwelling Catheter ABP, PAP, CO, CI - Last Documented Arterial Blood Pressure 147/65 - Exam PHYSICAL EXAMINATION: GENERAL: Patient is intubated sedated, HEENT: Pupils are round and equally reacting to light. EOMI. No scleral icterus. No conjunctival pallor. Normocephalic, atraumatic. No pharyngeal erythema. No thyromegaly. CARDIOVASCULAR: S1 and S2 present. No murmurs, rubs, or gallops. Does have elevated JVD PULMONARY: Chest is clear to auscultation, no wheezing or crackles. ABDOMEN: Soft, nontender, nondistended, normoactive bowel sounds. No palpable organomegaly. Anasarca MUSCULOSKELETAL: No joint swelling or deformity. EXTREMITIES: No cyanosis, clubbing, does have 2+ pitting pedal edema NEUROLOGICAL: Gross neurological examination did not reveal any focal deficits. SKIN: No rashes. - Labs CBC & Chem 7: 02/21/18 04:20 02/21/18 13:12 Labs: Abnormal Lab Results - Last 24 Hours (Table) 02/20/18 02/20/18 02/20/18 Range/Units 16:15 16:15 17:24 RBC 2.40 L (4.30-5.90) m/uL Hgb 6.9 L* (13.0-17.5) gm/dL Hct 21.8 L (39.0-53.0) % Neutrophils # (1.3-7.7) k/uL Lymphocytes # (1.0-4.8) k/uL ABG Total CO2 (19-24) mmol/L ABG O2 Saturation (94-97) % Sodium 134 L (137-145) mmol/L Potassium 6.0 H (3.5-5.1) mmol/L BUN 98 H (9-20) mg/dL Creatinine 7.20 H* (0.66-1.25) mg/dL Glucose 67 L (74-99) mg/dL POC Glucose (mg/dL) 70 L (75-99) mg/dL Calcium 8.3 L (8.4-10.2) mg/dL Phosphorus 5.1 H (2.5-4.5) mg/dL Magnesium 2.5 H (1.6-2.3) mg/dL Total Protein 5.7 L (6.3-8.2) g/dL Albumin 2.6 L (3.5-5.0) g/dL 02/20/18 02/20/18 02/20/18 Range/Units 18:26 19:39 20:57 RBC (4.30-5.90) m/uL Hgb (13.0-17.5) gm/dL Hct (39.0-53.0) % Neutrophils # (1.3-7.7) k/uL Lymphocytes # (1.0-4.8) k/uL ABG Total CO2 (19-24) mmol/L ABG O2 Saturation (94-97) % Sodium (137-145) mmol/L Potassium (3.5-5.1) mmol/L BUN (9-20) mg/dL Creatinine (0.66-1.25) mg/dL Glucose (74-99) mg/dL POC Glucose (mg/dL) 68 L 135 H 128 H (75-99) mg/dL Calcium (8.4-10.2) mg/dL Phosphorus (2.5-4.5) mg/dL Magnesium (1.6-2.3) mg/dL Total Protein (6.3-8.2) g/dL Albumin (3.5-5.0) g/dL 02/20/18 02/20/18 02/20/18 Range/Units 20:59 22:14 22:59 RBC 2.62 L (4.30-5.90) m/uL Hgb 7.7 L (13.0-17.5) gm/dL Hct 23.9 L (39.0-53.0) % Neutrophils # 8.1 H (1.3-7.7) k/uL Lymphocytes # 0.7 L (1.0-4.8) k/uL ABG Total CO2 (19-24) mmol/L ABG O2 Saturation (94-97) % Sodium (137-145) mmol/L Potassium (3.5-5.1) mmol/L BUN (9-20) mg/dL Creatinine (0.66-1.25) mg/dL Glucose (74-99) mg/dL POC Glucose (mg/dL) 136 H 143 H (75-99) mg/dL Calcium (8.4-10.2) mg/dL Phosphorus (2.5-4.5) mg/dL Magnesium (1.6-2.3) mg/dL Total Protein (6.3-8.2) g/dL Albumin (3.5-5.0) g/dL 02/20/18 02/20/18 02/21/18 Range/Units 23:54 23:58 00:54 RBC (4.30-5.90) m/uL Hgb (13.0-17.5) gm/dL Hct (39.0-53.0) % Neutrophils # (1.3-7.7) k/uL Lymphocytes # (1.0-4.8) k/uL ABG Total CO2 (19-24) mmol/L ABG O2 Saturation (94-97) % Sodium (137-145) mmol/L Potassium 5.9 H (3.5-5.1) mmol/L BUN (9-20) mg/dL Creatinine (0.66-1.25) mg/dL Glucose (74-99) mg/dL POC Glucose (mg/dL) 148 H 170 H (75-99) mg/dL Calcium (8.4-10.2) mg/dL Phosphorus (2.5-4.5) mg/dL Magnesium (1.6-2.3) mg/dL Total Protein (6.3-8.2) g/dL Albumin (3.5-5.0) g/dL 02/21/18 02/21/18 02/21/18 Range/Units 01:59 02:57 04:14 RBC (4.30-5.90) m/uL Hgb (13.0-17.5) gm/dL Hct (39.0-53.0) % Neutrophils # (1.3-7.7) k/uL Lymphocytes # (1.0-4.8) k/uL ABG Total CO2 (19-24) mmol/L ABG O2 Saturation (94-97) % Sodium (137-145) mmol/L Potassium (3.5-5.1) mmol/L BUN (9-20) mg/dL Creatinine (0.66-1.25) mg/dL Glucose (74-99) mg/dL POC Glucose (mg/dL) 183 H 231 H 244 H (75-99) mg/dL Calcium (8.4-10.2) mg/dL Phosphorus (2.5-4.5) mg/dL Magnesium (1.6-2.3) mg/dL Total Protein (6.3-8.2) g/dL Albumin (3.5-5.0) g/dL 02/21/18 02/21/18 02/21/18 Range/Units 04:20 04:20 04:51 RBC 2.72 L (4.30-5.90) m/uL Hgb 7.9 L (13.0-17.5) gm/dL Hct 24.8 L (39.0-53.0) % Neutrophils # 9.6 H (1.3-7.7) k/uL Lymphocytes # 0.7 L (1.0-4.8) k/uL ABG Total CO2 (19-24) mmol/L ABG O2 Saturation (94-97) % Sodium 133 L (137-145) mmol/L Potassium 5.9 H (3.5-5.1) mmol/L BUN 102 H* (9-20) mg/dL Creatinine 6.92 H (0.66-1.25) mg/dL Glucose 207 H (74-99) mg/dL POC Glucose (mg/dL) 239 H (75-99) mg/dL Calcium 8.3 L (8.4-10.2) mg/dL Phosphorus 6.4 H (2.5-4.5) mg/dL Magnesium 2.5 H (1.6-2.3) mg/dL Total Protein (6.3-8.2) g/dL Albumin (3.5-5.0) g/dL 02/21/18 02/21/18 02/21/18 Range/Units 06:07 06:56 07:59 RBC (4.30-5.90) m/uL Hgb (13.0-17.5) gm/dL Hct (39.0-53.0) % Neutrophils # (1.3-7.7) k/uL Lymphocytes # (1.0-4.8) k/uL ABG Total CO2 (19-24) mmol/L ABG O2 Saturation (94-97) % Sodium (137-145) mmol/L Potassium (3.5-5.1) mmol/L BUN (9-20) mg/dL Creatinine (0.66-1.25) mg/dL Glucose (74-99) mg/dL POC Glucose (mg/dL) 244 H 350 H 231 H (75-99) mg/dL Calcium (8.4-10.2) mg/dL Phosphorus (2.5-4.5) mg/dL Magnesium (1.6-2.3) mg/dL Total Protein (6.3-8.2) g/dL Albumin (3.5-5.0) g/dL 02/21/18 02/21/18 02/21/18 Range/Units 08:54 09:05 09:49 RBC (4.30-5.90) m/uL Hgb (13.0-17.5) gm/dL Hct (39.0-53.0) % Neutrophils # (1.3-7.7) k/uL Lymphocytes # (1.0-4.8) k/uL ABG Total CO2 25 H (19-24) mmol/L ABG O2 Saturation 99.1 H (94-97) % Sodium (137-145) mmol/L Potassium (3.5-5.1) mmol/L BUN (9-20) mg/dL Creatinine (0.66-1.25) mg/dL Glucose (74-99) mg/dL POC Glucose (mg/dL) 254 H 248 H (75-99) mg/dL Calcium (8.4-10.2) mg/dL Phosphorus (2.5-4.5) mg/dL Magnesium (1.6-2.3) mg/dL Total Protein (6.3-8.2) g/dL Albumin (3.5-5.0) g/dL 02/21/18 02/21/18 02/21/18 Range/Units 10:53 11:57 12:48 RBC (4.30-5.90) m/uL Hgb (13.0-17.5) gm/dL Hct (39.0-53.0) % Neutrophils # (1.3-7.7) k/uL Lymphocytes # (1.0-4.8) k/uL ABG Total CO2 (19-24) mmol/L ABG O2 Saturation (94-97) % Sodium (137-145) mmol/L Potassium (3.5-5.1) mmol/L BUN (9-20) mg/dL Creatinine (0.66-1.25) mg/dL Glucose (74-99) mg/dL POC Glucose (mg/dL) 252 H 269 H 240 H (75-99) mg/dL Calcium (8.4-10.2) mg/dL Phosphorus (2.5-4.5) mg/dL Magnesium (1.6-2.3) mg/dL Total Protein (6.3-8.2) g/dL Albumin (3.5-5.0) g/dL 02/21/18 02/21/18 Range/Units 13:12 13:59 RBC (4.30-5.90) m/uL Hgb (13.0-17.5) gm/dL Hct (39.0-53.0) % Neutrophils # (1.3-7.7) k/uL Lymphocytes # (1.0-4.8) k/uL ABG Total CO2 (19-24) mmol/L ABG O2 Saturation (94-97) % Sodium (137-145) mmol/L Potassium 5.5 H (3.5-5.1) mmol/L BUN (9-20) mg/dL Creatinine (0.66-1.25) mg/dL Glucose (74-99) mg/dL POC Glucose (mg/dL) 239 H (75-99) mg/dL Calcium (8.4-10.2) mg/dL Phosphorus (2.5-4.5) mg/dL Magnesium (1.6-2.3) mg/dL Total Protein (6.3-8.2) g/dL Albumin (3.5-5.0) g/dL Microbiology - Last 24 Hours (Table) 02/19/18 23:29 Blood Culture - Preliminary Blood No Growth after 24 hours 02/20/18 07:55 Gram Stain - Preliminary Sputum 02/20/18 11:00 Urine Culture - Preliminary Urine,Catheterized Assessment and Plan Plan: Assessment and Plan Plan: Acute hypoxic respiratory failure: Secondary to congestive heart failure chronic diastolic dysfunction with acute exacerbation patient was started on high-dose of Lasix. Continuing with the ventilatory support, diurese well improved creatinine with Lasix. 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 -Hypotension is possibly secondary to sedation antidepressive medications will be held and restarted as needed. Hyperlipidemia -Episode of seizure believed to be secondary to hypoglycemia patient antiseizure medications as mentioned above I believe antiseizure medications were started after EEG by neurology although EEG results are not available at this time
[2018-02-21 15:01] LABS: Glucose,Whole Blood 185 mg/dL (75-99)
[2018-02-21 17:11] LABS: Glucose,Whole Blood 108 mg/dL (75-99)
[2018-02-21 18:10] LABS: Glucose,Whole Blood 83 mg/dL (75-99)
[2018-02-21 18:33] LABS: Glucose,Whole Blood 83 mg/dL (75-99)
[2018-02-21 19:04] LABS: Glucose,Whole Blood 80 mg/dL (75-99)
[2018-02-21 20:01] LABS: Iron Saturation 10.76 (15.00-50.00)
[2018-02-21 20:17] LABS: Glucose,Whole Blood 95 mg/dL (75-99)
[2018-02-21] MEDS: ATORVASTATIN 10 MG TAB PO SCH (20:37)
[2018-02-21] MEDS: VALPROATE SODIUM 500 MG in SODIUM CHLORIDE 0.9% 50 ML IVPB SCH (20:37)
[2018-02-21 20:55] LABS: Glucose,Whole Blood 87 mg/dL (75-99)
--- NOTE | 2018-02-21 21:20 | P.PN ---
Subjective Progress Note Date: 02/21/18 Patient is a 67-year-old -[place] male who is being followed by the neurology service for possible seizure. Patient was brought to [facility] emergency room with shortness of breath. He was found to have significant pulmonary edema. Patient does have stage IV chronic kidney disease. Patient was being treated in the emergency room when one of the nurses noted patient to be unresponsive. Patient had questionable jerking activity. Patient had significant hypoglycemia in the 20s. He was given D50, intubated and sedated. Patient is currently in the ICU. Computed tomography scan of the brain was done which showed no acute abnormality. Computed tomography scan did show evidence of mild generalized atrophy. Patient was noted to have some rhythmic jerking. Patient was taken off propofol and had an EEG done. EEG showed generalized slowing of the background rhythm. EEG also showed significant triphasic waves which is commonly seen in hepatic pathology. Myoclonic activity was described. Patient was started on Depakote 500 mg every 12 hours IV. Staff reports no further jerking movements since starting Depakote. Patient remains sedated with propofol and on mechanical ventilation. Objective - Vital Signs Vital signs: Vital Signs Temp 98.3 F 02/21/18 16:00 Pulse 79 02/21/18 19:43 Resp 17 02/21/18 19:43 BP 160/83 02/21/18 07:00 Pulse Ox 99 02/21/18 19:30 Intake & Output 02/21/18 02/21/18 02/22/18 06:59 18:59 06:59 Intake Total 656.393 294.432 3 Output Total 1415 2150 250 Balance -758.607 -1855.568 -247 Weight 86 kg Intake: IV 441 36 3 Dextrose 10% in Water 1, 45 0 000 ml In Empty Bag 1 bag @ 15 mls/hr IV .Q24H [facility] Rx#:[id number] Dextrose 10% in Water 500 360 ml In Empty Bag 1 bag @ 40 mls/hr IV .[id number] [facility] Rx#:[id number] Pressure bag 36 36 3 Intake, IV Titration 215.393 258.432 Amount Insulin Regular 100 unit 19.156 In Sodium Chloride 0.9% 100 ml @ Per Protocol IV .Q0M [facility] Rx#:[id number] Propofol 1,000 mg In 215.393 239.276 Empty Bag 1 bag @ Titrate IV .Q0M [facility] Rx#: [id number] Output: Urine 1415 2150 250 Other: Voiding Method Indwelling Catheter Indwelling Catheter ABP, PAP, CO, CI - Last Documented Arterial Blood Pressure 142/63 - Exam PHYSICAL EXAM: GENERAL APPEARANCE: Patient is an -[place] male who appears to be in no acute distress. He is sedated and intubated on mechanical ventilation. HEENT: Normocephalic, atraumatic, no obvious facial asymmetry is seen. CARDIOVASCULAR: Regular rate and rhythm. ABDOMEN: Nontender, nondistended. EXTREMITIES: Show no edema or clubbing. NEUROLOGICAL EXAM: A meaningful neurological exam could not be performed due to sedation and mechanical ventilation. Patient has trace gag reflex. Patient has silent toes. - Labs CBC & Chem 7: 02/21/18 04:20 02/21/18 13:12 Labs: Abnormal Lab Results - Last 24 Hours (Table) 02/20/18 02/20/18 02/20/18 Range/Units 20:59 22:14 22:59 RBC 2.62 L (4.30-5.90) m/uL Hgb 7.7 L (13.0-17.5) gm/dL Hct 23.9 L (39.0-53.0) % Neutrophils # 8.1 H (1.3-7.7) k/uL Lymphocytes # 0.7 L (1.0-4.8) k/uL ABG Total CO2 (19-24) mmol/L ABG O2 Saturation (94-97) % Sodium (137-145) mmol/L Potassium (3.5-5.1) mmol/L BUN (9-20) mg/dL Creatinine (0.66-1.25) mg/dL Glucose (74-99) mg/dL POC Glucose (mg/dL) 136 H 143 H (75-99) mg/dL Calcium (8.4-10.2) mg/dL Phosphorus (2.5-4.5) mg/dL Magnesium (1.6-2.3) mg/dL Iron (65-175) ug/dL Iron Saturation (15.00-50.00) 02/20/18 02/20/18 02/21/18 Range/Units 23:54 23:58 00:54 RBC (4.30-5.90) m/uL Hgb (13.0-17.5) gm/dL Hct (39.0-53.0) % Neutrophils # (1.3-7.7) k/uL Lymphocytes # (1.0-4.8) k/uL ABG Total CO2 (19-24) mmol/L ABG O2 Saturation (94-97) % Sodium (137-145) mmol/L Potassium 5.9 H (3.5-5.1) mmol/L BUN (9-20) mg/dL Creatinine (0.66-1.25) mg/dL Glucose (74-99) mg/dL POC Glucose (mg/dL) 148 H 170 H (75-99) mg/dL Calcium (8.4-10.2) mg/dL Phosphorus (2.5-4.5) mg/dL Magnesium (1.6-2.3) mg/dL Iron (65-175) ug/dL Iron Saturation (15.00-50.00) 02/21/18 02/21/18 02/21/18 Range/Units 01:59 02:57 04:14 RBC (4.30-5.90) m/uL Hgb (13.0-17.5) gm/dL Hct (39.0-53.0) % Neutrophils # (1.3-7.7) k/uL Lymphocytes # (1.0-4.8) k/uL ABG Total CO2 (19-24) mmol/L ABG O2 Saturation (94-97) % Sodium (137-145) mmol/L Potassium (3.5-5.1) mmol/L BUN (9-20) mg/dL Creatinine (0.66-1.25) mg/dL Glucose (74-99) mg/dL POC Glucose (mg/dL) 183 H 231 H 244 H (75-99) mg/dL Calcium (8.4-10.2) mg/dL Phosphorus (2.5-4.5) mg/dL Magnesium (1.6-2.3) mg/dL Iron (65-175) ug/dL Iron Saturation (15.00-50.00) 02/21/18 02/21/18 02/21/18 Range/Units 04:20 04:20 04:20 RBC 2.72 L (4.30-5.90) m/uL Hgb 7.9 L (13.0-17.5) gm/dL Hct 24.8 L (39.0-53.0) % Neutrophils # 9.6 H (1.3-7.7) k/uL Lymphocytes # 0.7 L (1.0-4.8) k/uL ABG Total CO2 (19-24) mmol/L ABG O2 Saturation (94-97) % Sodium 133 L (137-145) mmol/L Potassium 5.9 H (3.5-5.1) mmol/L BUN 102 H* (9-20) mg/dL Creatinine 6.92 H (0.66-1.25) mg/dL Glucose 207 H (74-99) mg/dL POC Glucose (mg/dL) (75-99) mg/dL Calcium 8.3 L (8.4-10.2) mg/dL Phosphorus 6.4 H (2.5-4.5) mg/dL Magnesium 2.5 H (1.6-2.3) mg/dL Iron 34 L (65-175) ug/dL Iron Saturation 10.76 L (15.00-50.00) 02/21/18 02/21/18 02/21/18 Range/Units 04:51 06:07 06:56 RBC (4.30-5.90) m/uL Hgb (13.0-17.5) gm/dL Hct (39.0-53.0) % Neutrophils # (1.3-7.7) k/uL Lymphocytes # (1.0-4.8) k/uL ABG Total CO2 (19-24) mmol/L ABG O2 Saturation (94-97) % Sodium (137-145) mmol/L Potassium (3.5-5.1) mmol/L BUN (9-20) mg/dL Creatinine (0.66-1.25) mg/dL Glucose (74-99) mg/dL POC Glucose (mg/dL) 239 H 244 H 350 H (75-99) mg/dL Calcium (8.4-10.2) mg/dL Phosphorus (2.5-4.5) mg/dL Magnesium (1.6-2.3) mg/dL Iron (65-175) ug/dL Iron Saturation (15.00-50.00) 02/21/18 02/21/18 02/21/18 Range/Units 07:59 08:54 09:05 RBC (4.30-5.90) m/uL Hgb (13.0-17.5) gm/dL Hct (39.0-53.0) % Neutrophils # (1.3-7.7) k/uL Lymphocytes # (1.0-4.8) k/uL ABG Total CO2 25 H (19-24) mmol/L ABG O2 Saturation 99.1 H (94-97) % Sodium (137-145) mmol/L Potassium (3.5-5.1) mmol/L BUN (9-20) mg/dL Creatinine (0.66-1.25) mg/dL Glucose (74-99) mg/dL POC Glucose (mg/dL) 231 H 254 H (75-99) mg/dL Calcium (8.4-10.2) mg/dL Phosphorus (2.5-4.5) mg/dL Magnesium (1.6-2.3) mg/dL Iron (65-175) ug/dL Iron Saturation (15.00-50.00) 02/21/18 02/21/18 02/21/18 Range/Units 09:49 10:53 11:57 RBC (4.30-5.90) m/uL Hgb (13.0-17.5) gm/dL Hct (39.0-53.0) % Neutrophils # (1.3-7.7) k/uL Lymphocytes # (1.0-4.8) k/uL ABG Total CO2 (19-24) mmol/L ABG O2 Saturation (94-97) % Sodium (137-145) mmol/L Potassium (3.5-5.1) mmol/L BUN (9-20) mg/dL Creatinine (0.66-1.25) mg/dL Glucose (74-99) mg/dL POC Glucose (mg/dL) 248 H 252 H 269 H (75-99) mg/dL Calcium (8.4-10.2) mg/dL Phosphorus (2.5-4.5) mg/dL Magnesium (1.6-2.3) mg/dL Iron (65-175) ug/dL Iron Saturation (15.00-50.00) 02/21/18 02/21/18 02/21/18 Range/Units 12:48 13:12 13:59 RBC (4.30-5.90) m/uL Hgb (13.0-17.5) gm/dL Hct (39.0-53.0) % Neutrophils # (1.3-7.7) k/uL Lymphocytes # (1.0-4.8) k/uL ABG Total CO2 (19-24) mmol/L ABG O2 Saturation (94-97) % Sodium (137-145) mmol/L Potassium 5.5 H (3.5-5.1) mmol/L BUN (9-20) mg/dL Creatinine (0.66-1.25) mg/dL Glucose (74-99) mg/dL POC Glucose (mg/dL) 240 H 239 H (75-99) mg/dL Calcium (8.4-10.2) mg/dL Phosphorus (2.5-4.5) mg/dL Magnesium (1.6-2.3) mg/dL Iron (65-175) ug/dL Iron Saturation (15.00-50.00) 02/21/18 02/21/18 Range/Units 14:59 17:05 RBC (4.30-5.90) m/uL Hgb (13.0-17.5) gm/dL Hct (39.0-53.0) % Neutrophils # (1.3-7.7) k/uL Lymphocytes # (1.0-4.8) k/uL ABG Total CO2 (19-24) mmol/L ABG O2 Saturation (94-97) % Sodium (137-145) mmol/L Potassium (3.5-5.1) mmol/L BUN (9-20) mg/dL Creatinine (0.66-1.25) mg/dL Glucose (74-99) mg/dL POC Glucose (mg/dL) 185 H 108 H (75-99) mg/dL Calcium (8.4-10.2) mg/dL Phosphorus (2.5-4.5) mg/dL Magnesium (1.6-2.3) mg/dL Iron (65-175) ug/dL Iron Saturation (15.00-50.00) Microbiology - Last 24 Hours (Table) 02/20/18 07:55 Gram Stain - Preliminary Sputum Sputum Culture - Preliminary 02/19/18 23:29 Blood Culture - Preliminary Blood No Growth after 24 hours 02/20/18 11:00 Urine Culture - Preliminary Urine,Catheterized Assessment and Plan Plan: Impression: 1. Episode of altered consciousness 2. Possible seizures/myoclonic jerking 3. Chronic renal failure 4. Respiratory failure 5. Pulmonary edema Recommendation: Patient may have had initial seizure due to severe hypoglycemia , however, patient continued to have rhythmic jerking and was started on Depakote. EEG showed triphasic waves consistent with hepatic pathology. Continue Depakote 500 mg IV every 12 hours. As mentioned above, computed tomography scan of the brain showed no acute findings. Continue current ICU management and treatment of pulmonary edema. Nephrology has been consulted. Once patient is off sedation, better neurological assessment may be performed. I will continue to follow with you. Further recommendations to follow. I performed an examination of the patient and discussed the management with the PHARMACY TECHNICIAN PER DIEM. I have reviewed the PHARMACY TECHNICIAN PER DIEM notes and agree with the findings and plan of care.
[2018-02-21 21:59] LABS: Glucose,Whole Blood 94 mg/dL (75-99)
[2018-02-21 22:55] LABS: Glucose,Whole Blood 93 mg/dL (75-99)
[2018-02-22 00:04] LABS: Glucose,Whole Blood 101 mg/dL (75-99)
[2018-02-22] MEDS: FUROSEMIDE 10 MG/ML 10 ML VIAL IV SCH ×3 (00:17→15:39)
[2018-02-22] MEDS: HEPARIN SODIUM,PORCINE 5,000 UNIT/ML 1 ML VIAL SQ SCH ×3 (00:17→15:40)
[2018-02-22 00:53] LABS: Hemoglobin A1C 8.8 % (4.0-6.0)
[2018-02-22 01:24] LABS: Glucose,Whole Blood 113 mg/dL (75-99)
[2018-02-22 02:21] LABS: Glucose,Whole Blood 104 mg/dL (75-99)
[2018-02-22 02:38] LABS: Glucose,Whole Blood 104 mg/dL (75-99)
[2018-02-22] MEDS: IPRATROPIUM-ALBUTEROL 3 ML NEB INHALATION SCH ×6 (03:25→23:12)
[2018-02-22 03:56] LABS: Glucose,Whole Blood 103 mg/dL (75-99)
[2018-02-22] MEDS: PROPOFOL 1,000 MG in EMPTY BAG 1 BAG IV SCH (03:58)
[2018-02-22 04:53] LABS: Basophils % (A) 0 %; Eosinophils # (A) 0.1 k/uL (0-0.7); Eosinophils % (A) 1 %; HCT 23.9 % (39.0-53.0); HGB 7.7 gm/dL (13.0-17.5); Hypochromasia Slight; Lymphocytes # (A) 1.2 k/uL (1.0-4.8); Lymphocytes % (A) 13 %; MCH 29.6 pg (25.0-35.0); MCHC 32.2 g/dL (31.0-37.0); MCV 91.9 fL (80.0-100.0); Monocytes # (A) 0.4 k/uL (0-1.0); Monocytes % (A) 4 %; Neutrophils # (A) 8.1 k/uL (1.3-7.7); Neutrophils % (A) 82 %; Platelet Count 359 k/uL (150-450); RBC 2.61 m/uL (4.30-5.90); RDW 14.2 % (11.5-15.5); WBC 9.9 k/uL (3.8-10.6)
[2018-02-22 05:13] LABS: Calcium 8.8 mg/dL (8.4-10.2); Magnesium 2.4 mg/dL (1.6-2.3); Phosphorus 7.7 mg/dL (2.5-4.5); Potassium 4.9 mmol/L (3.5-5.1)
[2018-02-22 05:18] LABS: Valproic Acid (Depakene) 21.5 ug/mL
[2018-02-22 05:57] LABS: Glucose,Whole Blood 105 mg/dL (75-99)
--- NOTE | 2018-02-22 06:59 | XR ---
EXAMINATION TYPE: XR chest 1V portable DATE OF EXAM: 02/22/2018 HISTORY: Tube placement. REFERENCE: Previous study dated 02/21/2018. FINDINGS: The patient is ET tube, NG tube and right subclavian catheter remain in place, unchanged in appearance. There is bibasilar airspace disease. There are bilateral effusions. The heart is mildly enlarged. The re is vascular congestion and mild pulmonary edema. IMPRESSION: CONTINUING CHANGES OF CONGESTIVE HEART FAILURE.
[2018-02-22 07:03] LABS: Glucose,Whole Blood 120 mg/dL (75-99)
[2018-02-22 07:23] LABS: ABG Base Excess 3.5 mmol/L; ABG HCO3 27 mmol/L (21-25); ABG Oxygen Saturation 99.8 % (94-97); ABG PCO2 39 mmHg (35-45); ABG PH 7.45 (7.35-7.45); ABG PO2 140 mmHg (83-108); ABG TCO2 29 mmol/L (19-24)
[2018-02-22] MEDS: CALCIUM ACETATE 667 MG CAP PO SCH ×3 (07:44→16:31)
[2018-02-22 08:07] LABS: Glucose,Whole Blood 123 mg/dL (75-99)
--- NOTE | 2018-02-22 08:26 | P.PN ---
Subjective Patient is seen in follow-up for acute kidney injury on chronic kidney disease. Patient has chronic kidney disease stage IV secondary to biopsy-proven diabetic kidney disease with severe chronicity. His baseline creatinine has been in the range of 4-5. Creatinine was 7.65 on admission and is 6.75 today. Patient was noted to have volume overload with generalized anasarca and is currently maintained on Lasix 80 mg IV twice daily. He is nonoliguric. Blood pressure improved. Currently intubated. Vital signs are stable. General: The patient appeared well nourished and normally developed. Intubated. HEENT: Head exam is unremarkable. Neck is without jugular venous distension. LUNGS: Breath sounds decreased. HEART: Rate and Rhythm are regular. First and second heart sounds normal. No murmurs, rubs or gallops. ABDOMEN: Abdominal exam reveals normal bowel sounds. Non-tender and non- distended. No evidence of peritonitis. EXTREMITITES: No clubbing, cyanosis, or edema. Right BKA noted. Objective - Vital Signs Vital signs: Vital Signs Temp 97.9 F 02/22/18 04:00 Pulse 65 02/22/18 07:00 Resp 14 02/22/18 07:00 BP 126/71 02/22/18 07:00 Pulse Ox 100 02/22/18 07:00 Intake & Output 02/21/18 02/22/18 02/22/18 18:59 06:59 18:59 Intake Total 294.432 220.038 3 Output Total 2150 2985 295 Balance -1855.568 -2764.962 -292 Weight 84.3 kg Intake: IV 36 86 3 Dextrose 10% in Water 1, 0 000 ml In Empty Bag 1 bag @ 15 mls/hr IV .Q24H [facility] Rx#:[id number] Pressure bag 36 36 3 Valproate Sodium 500 mg 50 In Sodium Chloride 0.9% 50 ml @ 50 mls/hr IVPB Q12HR [facility] Rx#:[id number] Intake, IV Titration 258.432 134.038 Amount Insulin Regular 100 unit 19.156 In Sodium Chloride 0.9% 100 ml @ Per Protocol IV .Q0M [facility] Rx#:[id number] Propofol 1,000 mg In 239.276 134.038 Empty Bag 1 bag @ Titrate IV .Q0M [facility] Rx#: [id number] Output: Urine 2150 2985 295 Other: Voiding Method Indwelling Catheter Indwelling Catheter ABP, PAP, CO, CI - Last Documented Arterial Blood Pressure 124/51 - Labs CBC & Chem 7: 02/22/18 04:30 02/22/18 04:30 Labs: Abnormal Lab Results - Last 24 Hours (Table) 02/21/18 02/21/18 02/21/18 Range/Units 04:20 04:21 07:59 RBC (4.30-5.90) m/uL Hgb (13.0-17.5) gm/dL Hct (39.0-53.0) % Neutrophils # (1.3-7.7) k/uL ABG pO2 (83-108) mmHg ABG HCO3 (21-25) mmol/L ABG Total CO2 (19-24) mmol/L ABG O2 Saturation (94-97) % Potassium (3.5-5.1) mmol/L BUN (9-20) mg/dL Creatinine (0.66-1.25) mg/dL POC Glucose (mg/dL) 231 H (75-99) mg/dL Hemoglobin A1c 8.8 H (4.0-6.0) % Phosphorus (2.5-4.5) mg/dL Magnesium (1.6-2.3) mg/dL Iron 34 L (65-175) ug/dL Iron Saturation 10.76 L (15.00-50.00) 02/21/18 02/21/18 02/21/18 Range/Units 08:54 09:05 09:49 RBC (4.30-5.90) m/uL Hgb (13.0-17.5) gm/dL Hct (39.0-53.0) % Neutrophils # (1.3-7.7) k/uL ABG pO2 (83-108) mmHg ABG HCO3 (21-25) mmol/L ABG Total CO2 25 H (19-24) mmol/L ABG O2 Saturation 99.1 H (94-97) % Potassium (3.5-5.1) mmol/L BUN (9-20) mg/dL Creatinine (0.66-1.25) mg/dL POC Glucose (mg/dL) 254 H 248 H (75-99) mg/dL Hemoglobin A1c (4.0-6.0) % Phosphorus (2.5-4.5) mg/dL Magnesium (1.6-2.3) mg/dL Iron (65-175) ug/dL Iron Saturation (15.00-50.00) 02/21/18 02/21/18 02/21/18 Range/Units 10:53 11:57 12:48 RBC (4.30-5.90) m/uL Hgb (13.0-17.5) gm/dL Hct (39.0-53.0) % Neutrophils # (1.3-7.7) k/uL ABG pO2 (83-108) mmHg ABG HCO3 (21-25) mmol/L ABG Total CO2 (19-24) mmol/L ABG O2 Saturation (94-97) % Potassium (3.5-5.1) mmol/L BUN (9-20) mg/dL Creatinine (0.66-1.25) mg/dL POC Glucose (mg/dL) 252 H 269 H 240 H (75-99) mg/dL Hemoglobin A1c (4.0-6.0) % Phosphorus (2.5-4.5) mg/dL Magnesium (1.6-2.3) mg/dL Iron (65-175) ug/dL Iron Saturation (15.00-50.00) 02/21/18 02/21/18 02/21/18 Range/Units 13:12 13:59 14:59 RBC (4.30-5.90) m/uL Hgb (13.0-17.5) gm/dL Hct (39.0-53.0) % Neutrophils # (1.3-7.7) k/uL ABG pO2 (83-108) mmHg ABG HCO3 (21-25) mmol/L ABG Total CO2 (19-24) mmol/L ABG O2 Saturation (94-97) % Potassium 5.5 H (3.5-5.1) mmol/L BUN (9-20) mg/dL Creatinine (0.66-1.25) mg/dL POC Glucose (mg/dL) 239 H 185 H (75-99) mg/dL Hemoglobin A1c (4.0-6.0) % Phosphorus (2.5-4.5) mg/dL Magnesium (1.6-2.3) mg/dL Iron (65-175) ug/dL Iron Saturation (15.00-50.00) 02/21/18 02/22/18 02/22/18 Range/Units 17:05 00:03 01:21 RBC (4.30-5.90) m/uL Hgb (13.0-17.5) gm/dL Hct (39.0-53.0) % Neutrophils # (1.3-7.7) k/uL ABG pO2 (83-108) mmHg ABG HCO3 (21-25) mmol/L ABG Total CO2 (19-24) mmol/L ABG O2 Saturation (94-97) % Potassium (3.5-5.1) mmol/L BUN (9-20) mg/dL Creatinine (0.66-1.25) mg/dL POC Glucose (mg/dL) 108 H 101 H 113 H (75-99) mg/dL Hemoglobin A1c (4.0-6.0) % Phosphorus (2.5-4.5) mg/dL Magnesium (1.6-2.3) mg/dL Iron (65-175) ug/dL Iron Saturation (15.00-50.00) 02/22/18 02/22/18 02/22/18 Range/Units 02:20 02:36 03:54 RBC (4.30-5.90) m/uL Hgb (13.0-17.5) gm/dL Hct (39.0-53.0) % Neutrophils # (1.3-7.7) k/uL ABG pO2 (83-108) mmHg ABG HCO3 (21-25) mmol/L ABG Total CO2 (19-24) mmol/L ABG O2 Saturation (94-97) % Potassium (3.5-5.1) mmol/L BUN (9-20) mg/dL Creatinine (0.66-1.25) mg/dL POC Glucose (mg/dL) 104 H 104 H 103 H (75-99) mg/dL Hemoglobin A1c (4.0-6.0) % Phosphorus (2.5-4.5) mg/dL Magnesium (1.6-2.3) mg/dL Iron (65-175) ug/dL Iron Saturation (15.00-50.00) 02/22/18 02/22/18 02/22/18 Range/Units 04:30 04:30 05:55 RBC 2.61 L (4.30-5.90) m/uL Hgb 7.7 L (13.0-17.5) gm/dL Hct 23.9 L (39.0-53.0) % Neutrophils # 8.1 H (1.3-7.7) k/uL ABG pO2 (83-108) mmHg ABG HCO3 (21-25) mmol/L ABG Total CO2 (19-24) mmol/L ABG O2 Saturation (94-97) % Potassium (3.5-5.1) mmol/L BUN 99 H (9-20) mg/dL Creatinine 6.75 H (0.66-1.25) mg/dL POC Glucose (mg/dL) 105 H (75-99) mg/dL Hemoglobin A1c (4.0-6.0) % Phosphorus 7.7 H (2.5-4.5) mg/dL Magnesium 2.4 H (1.6-2.3) mg/dL Iron (65-175) ug/dL Iron Saturation (15.00-50.00) 02/22/18 02/22/18 02/22/18 Range/Units 07:01 07:18 08:05 RBC (4.30-5.90) m/uL Hgb (13.0-17.5) gm/dL Hct (39.0-53.0) % Neutrophils # (1.3-7.7) k/uL ABG pO2 140 H (83-108) mmHg ABG HCO3 27 H (21-25) mmol/L ABG Total CO2 29 H (19-24) mmol/L ABG O2 Saturation 99.8 H (94-97) % Potassium (3.5-5.1) mmol/L BUN (9-20) mg/dL Creatinine (0.66-1.25) mg/dL POC Glucose (mg/dL) 120 H 123 H (75-99) mg/dL Hemoglobin A1c (4.0-6.0) % Phosphorus (2.5-4.5) mg/dL Magnesium (1.6-2.3) mg/dL Iron (65-175) ug/dL Iron Saturation (15.00-50.00) Microbiology - Last 24 Hours (Table) 02/20/18 11:00 Urine Culture - Final Urine,Catheterized 02/20/18 07:55 Gram Stain - Preliminary Sputum Sputum Culture - Preliminary 02/19/18 23:29 Blood Culture - Preliminary Blood No Growth after 24 hours Assessment and Plan Plan: Assessment: 1. Acute kidney injury secondary to ATN secondary to cardiorenal syndrome. Creatinine 7.65 on admission and is 6.75 this morning. 2. Chronic kidney disease stage IV with baseline creatinine in the range of 4- 5. Etiology is biopsy proven diabetic kidney disease. He is noted to have severe chronicity. 3. Hyperkalemia secondary to acute kidney injury. Improved with medical management. 4. Insulin-dependent diabetes mellitus. 5. Hypertension with chronic kidney disease. 5. Volume overload. 6. Diastolic CHF. 7. Acute hypoxic respiratory failure currently intubated. 8. Anemia of chronic kidney disease. Iron deficiency noted. 9. History of hepatitis C. He was to follow-up with GI as outpatient. 10. Hyperphosphatemia secondary to acute kidney injury maintained on PhosLo. Plan: Maintain Lasix 80 mg IV 3 times daily. Avoid nephrotoxins. Strict I's and O's. Follow-up cultures. Decreased dose of Neurontin to 100 mg 3 times daily. Ferrlecit 125 mg IV daily for 3 days. First dose today. Wean FiO2. Continue to monitor renal function and urine output. Will assess for need for renal replacement therapy on a day-to-day basis.
[2018-02-22] MEDS: amLODIPine 10 MG TAB PO SCH (08:29)
[2018-02-22] MEDS: CHLORHEXIDINE GLUCONATE 15 ML CUP MUCOUS MEM SCH ×2 (08:29→20:02)
[2018-02-22] MEDS: GABAPENTIN 100 MG CAP PO SCH ×3 (08:30→22:10)
[2018-02-22] MEDS: PANTOPRAZOLE 40 MG/10 ML VIAL IVP SCH (08:43)
[2018-02-22] MEDS: SODIUM BICARBONATE TAB 650 MG TAB PO SCH (08:43)
[2018-02-22] MEDS: TAMSULOSIN 0.4 MG CAP.ER.24H PO SCH (08:44)
[2018-02-22] MEDS: SODIUM FERRIC GLUCONAT-SUCROSE 125 MG in SODIUM CHLORIDE 0.9% 100 ML IVPB SCH (08:48)
[2018-02-22] MEDS: LABETALOL 200 MG TAB PO SCH ×3 (08:49→22:10)
[2018-02-22] MEDS: VALPROATE SODIUM 500 MG in SODIUM CHLORIDE 0.9% 50 ML IVPB SCH ×2 (09:08→22:10)
[2018-02-22 09:27] LABS: Glucose,Whole Blood 108 mg/dL (75-99)
--- NOTE | 2018-02-22 11:18 | P.PN ---
Subjective Progress Note Date: 02/22/18 Principal diagnosis: Acute hypoxic respiratory failure secondary to pulmonary edema, diastolic congestive heart failure. This is a 67-year-old -[place] male, is brought to the emergency department on on 02/19/2018 at 2300 for evaluation of worsening dyspnea, abdominal distention and confusion. Patient has a past medical history of stage IV CKD, peripheral vascular disease with right below-knee amputation, COPD , diabetes mellitus, hyperlipidemia, hypertension, hepatitis B and hepatitis C viral infection, BPH, gout, previous history of DVT on anticoagulation, back pain, anxiety and depression, remote history of IV drug abuse, chronic anemia, and cocaine use. Patient was recently hospitalized at this hospital, for acute on chronic renal failure. Patient did have an admission to the intensive care during that hospitalization for hypertensive emergency, pulmonary edema, chest pain, patient was managed with Cleviprex, Lasix, lisinopril. Echocardiogram on 02/07/2018 showed left ventricular systolic function with EF of 50-55%, mild MR , mild TR, no pulmonary hypertension. Patient underwent renal biopsy confirmed diabetic kidney disease, stage IV CKD. Patient was discharged to [facility] on 02/14/2018. Yesterday patient was noted to be acting strange, he was attempting to squat down in the hallway go to the bathroom. He was reportedly constipated and had not had a bowel movement in several days. He was complaining of abdominal distention. Denied any nausea or vomiting. He was becoming more short of breath due to his abdominal distention. Denies any fever or chills. Chest x- ray in the emergency department showed pleural effusions and bilateral lower lobe pulmonary infiltrates. KUB abdomen showed constipation, no free air, possible right renal calculi, single distended loop of small bowel in the left lower quadrant, questionable small bowel obstruction. Abdomen/pelvis CT showed extensive subcutaneous edema consistent with anasarca, cardiomegaly with pleural effusions and basilar pulmonary infiltrates/or atelectasis. Brain CT showed cerebral atrophy, but no acute intracranial abnormality. While in the emergency department patient's condition had deteriorated, he became unresponsive, and frothing at the mouth. He was noted to have seizure type activity, and patient was intubated and placed on mechanical ventilator. Labs showed no evidence of leukocytosis, WBC is 7.9, hemoglobin is 8.3, sodium is 132 , potassium was 5.8, BUN was 107, and creatinine was 7.65. Troponin was negative, proBNP was elevated at 10,700. Postintubation blood gas was obtained , and showed pO2 58, pCO2 41, and pH of 7.41. Patient's blood glucose was checked and it was less than 20. Patient is on mechanical ventilator this morning, he is sedated, on propofol drip which is currently infusing at a rate of 35 mics per kilo per minute. He was placed on D5 half-normal saline at a rate of 50 ML per hour for persistent hypoglycemia, and patient's blood sugar was treated multiple times with rounds of D50. Patient is hypothermic this morning with a temp of 93.6 rectally, he is being warmed with a bear hugger, his current blood pressure is 118/75, patient is not on any vasopressor support , sinus rhythm on the monitor with a rate of 64 BPM. On vent settings are assist-control mode with a rate of 14, tidal volume of 500, FiO2 of 50% and PEEP of 5. This morning's chest x-ray shows new pulmonary alveolar edema, small pleural effusions and cardiomegaly.'s morning's lab work was reviewed, WBC is 4.9, hemoglobin is 7.1, sodium is 135, potassium is 4.7 after being treated with Kayexalate, insulin and D50. BUN is 100, creatinine is 7.26, patient was seen by nephrology, he was given a dose of IV Lasix 80 mg and he is producing 32-140 ML per hour urine. Patient was reevaluated today on 02/21/2018, remains on mechanical ventilation, ventilator settings are tidal volume of 500 assist control rate 14 FiO2 50% and PEEP of 5. ABG showed a pO2 of 108 pCO2 of 36 pH of 7.43. Potassium remains elevated at 5.9, BUN is 102 creatinine 6.92, patient remains on diuretics, and he is being followed by nephrology regarding his renal failure. May have to be seriously considered for hemodialysis. Chest x-ray continues to show evidence of pulmonary edema, hence more Lasix was given today. Urine output seems to be reasonable. Patient is negative about over a liter in the last 24 hours. Reevaluated on 02/22/2018, remains on mechanical ventilation, same ventilator settings as noted above, however considering his ABG I cut him down to 40% FiO2. Remains on assist control rate of 14 and tidal volume of 500 PEEP of 5. ABG this morning showed a pO2 of 140 pCO2 of 39 pH of 7.45. Chest x-ray is showing evidence of improved pulmonary edema. Urine output is excellent with diuretics. Remains on Lasix every 12 hours. His renal profile showed about the same BUN is 99 creatinine is 6.75 today. Slightly improved compared to the last couple of days. Patient is definitely nonoliguric. Patient remains on propofol, and I plan to give him a trial of weaning if tolerated once he is off the propofol. Sedation interruption will be done today. Objective - Vital Signs Vital signs: Vital Signs Temp 97.7 F 02/22/18 08:00 Pulse 67 02/22/18 10:30 Resp 14 02/22/18 10:30 BP 126/71 02/22/18 07:00 Pulse Ox 99 02/22/18 10:30 Intake & Output 02/21/18 02/22/18 02/22/18 18:59 06:59 18:59 Intake Total 294.432 220.038 245.725 Output Total 2150 2985 920 Balance -1855.568 -2764.962 -674.275 Weight 84.3 kg 84.3 kg Intake: IV 36 86 162 Dextrose 10% in Water 1, 0 000 ml In Empty Bag 1 bag @ 15 mls/hr IV .Q24H [facility]INE Rx#:[id number] Pressure bag 36 36 12 Sodium Ferric Gluconat- 100 Sucrose 125 mg In Sodium Chloride 0.9% 100 ml @ 100 mls/hr IVPB DAILY RAINE Rx#:[id number] Valproate Sodium 500 mg 50 50 In Sodium Chloride 0.9% 50 ml @ 50 mls/hr IVPB Q12HR RAINE Rx#:[id number] Intake, IV Titration 258.432 134.038 83.725 Amount Insulin Regular 100 unit 19.156 In Sodium Chloride 0.9% 100 ml @ Per Protocol IV .Q0M RAINE Rx#:[id number] Propofol 1,000 mg In 239.276 134.038 83.725 Empty Bag 1 bag @ Titrate IV .Q0M RAINE Rx#: [id number] Output: Urine 2150 2985 920 Other: Voiding Method Indwelling Catheter Indwelling Catheter Indwelling Catheter ABP, PAP, CO, CI - Last Documented Arterial Blood Pressure 144/64 - Exam GENERAL: Patient is intubated sedated, on propofol presently, on mechanical ventilation. Head: Atraumatic, normocephalic. HEENT: PERRLA, EOMI, moist mucous membranes, no icterus. Endotracheal tube is intact, orogastric tube is intact. Positive JVD. CARDIOVASCULAR: S1 and S2 present. No murmurs, rubs, or gallops. PULMONARY: Minimal fine crackles at the bases, symmetrical chest expansion.. ABDOMEN: Soft, nontender, nondistended, normoactive bowel sounds. No palpable organomegaly. MUSCULOSKELETAL: No deformities, range of motion is intact. EXTREMITIES: No cyanosis, clubbing, does have 1+ pitting pedal edema. Right below-knee amputation is noted. NEUROLOGICAL: Cannot be assessed at present, patient is sedated. We'll hold propofol shortly, and addressed mental status and whether weaning could be considered. SKIN: No rashes. - Labs CBC & Chem 7: 02/22/18 04:30 02/22/18 04:30 Labs: Abnormal Lab Results - Last 24 Hours (Table) 02/21/18 02/21/18 02/21/18 Range/Units 04:20 04:21 10:53 RBC (4.30-5.90) m/uL Hgb (13.0-17.5) gm/dL Hct (39.0-53.0) % Neutrophils # (1.3-7.7) k/uL ABG pO2 (83-108) mmHg ABG HCO3 (21-25) mmol/L ABG Total CO2 (19-24) mmol/L ABG O2 Saturation (94-97) % Potassium (3.5-5.1) mmol/L BUN (9-20) mg/dL Creatinine (0.66-1.25) mg/dL POC Glucose (mg/dL) 252 H (75-99) mg/dL Hemoglobin A1c 8.8 H (4.0-6.0) % Phosphorus (2.5-4.5) mg/dL Magnesium (1.6-2.3) mg/dL Iron 34 L (65-175) ug/dL Iron Saturation 10.76 L (15.00-50.00) 02/21/18 02/21/18 02/21/18 Range/Units 11:57 12:48 13:12 RBC (4.30-5.90) m/uL Hgb (13.0-17.5) gm/dL Hct (39.0-53.0) % Neutrophils # (1.3-7.7) k/uL ABG pO2 (83-108) mmHg ABG HCO3 (21-25) mmol/L ABG Total CO2 (19-24) mmol/L ABG O2 Saturation (94-97) % Potassium 5.5 H (3.5-5.1) mmol/L BUN (9-20) mg/dL Creatinine (0.66-1.25) mg/dL POC Glucose (mg/dL) 269 H 240 H (75-99) mg/dL Hemoglobin A1c (4.0-6.0) % Phosphorus (2.5-4.5) mg/dL Magnesium (1.6-2.3) mg/dL Iron (65-175) ug/dL Iron Saturation (15.00-50.00) 02/21/18 02/21/18 02/21/18 Range/Units 13:59 14:59 17:05 RBC (4.30-5.90) m/uL Hgb (13.0-17.5) gm/dL Hct (39.0-53.0) % Neutrophils # (1.3-7.7) k/uL ABG pO2 (83-108) mmHg ABG HCO3 (21-25) mmol/L ABG Total CO2 (19-24) mmol/L ABG O2 Saturation (94-97) % Potassium (3.5-5.1) mmol/L BUN (9-20) mg/dL Creatinine (0.66-1.25) mg/dL POC Glucose (mg/dL) 239 H 185 H 108 H (75-99) mg/dL Hemoglobin A1c (4.0-6.0) % Phosphorus (2.5-4.5) mg/dL Magnesium (1.6-2.3) mg/dL Iron (65-175) ug/dL Iron Saturation (15.00-50.00) 02/22/18 02/22/18 02/22/18 Range/Units 00:03 01:21 02:20 RBC (4.30-5.90) m/uL Hgb (13.0-17.5) gm/dL Hct (39.0-53.0) % Neutrophils # (1.3-7.7) k/uL ABG pO2 (83-108) mmHg ABG HCO3 (21-25) mmol/L ABG Total CO2 (19-24) mmol/L ABG O2 Saturation (94-97) % Potassium (3.5-5.1) mmol/L BUN (9-20) mg/dL Creatinine (0.66-1.25) mg/dL POC Glucose (mg/dL) 101 H 113 H 104 H (75-99) mg/dL Hemoglobin A1c (4.0-6.0) % Phosphorus (2.5-4.5) mg/dL Magnesium (1.6-2.3) mg/dL Iron (65-175) ug/dL Iron Saturation (15.00-50.00) 02/22/18 02/22/18 02/22/18 Range/Units 02:36 03:54 04:30 RBC 2.61 L (4.30-5.90) m/uL Hgb 7.7 L (13.0-17.5) gm/dL Hct 23.9 L (39.0-53.0) % Neutrophils # 8.1 H (1.3-7.7) k/uL ABG pO2 (83-108) mmHg ABG HCO3 (21-25) mmol/L ABG Total CO2 (19-24) mmol/L ABG O2 Saturation (94-97) % Potassium (3.5-5.1) mmol/L BUN (9-20) mg/dL Creatinine (0.66-1.25) mg/dL POC Glucose (mg/dL) 104 H 103 H (75-99) mg/dL Hemoglobin A1c (4.0-6.0) % Phosphorus (2.5-4.5) mg/dL Magnesium (1.6-2.3) mg/dL Iron (65-175) ug/dL Iron Saturation (15.00-50.00) 02/22/18 02/22/18 02/22/18 Range/Units 04:30 05:55 07:01 RBC (4.30-5.90) m/uL Hgb (13.0-17.5) gm/dL Hct (39.0-53.0) % Neutrophils # (1.3-7.7) k/uL ABG pO2 (83-108) mmHg ABG HCO3 (21-25) mmol/L ABG Total CO2 (19-24) mmol/L ABG O2 Saturation (94-97) % Potassium (3.5-5.1) mmol/L BUN 99 H (9-20) mg/dL Creatinine 6.75 H (0.66-1.25) mg/dL POC Glucose (mg/dL) 105 H 120 H (75-99) mg/dL Hemoglobin A1c (4.0-6.0) % Phosphorus 7.7 H (2.5-4.5) mg/dL Magnesium 2.4 H (1.6-2.3) mg/dL Iron (65-175) ug/dL Iron Saturation (15.00-50.00) 02/22/18 02/22/18 02/22/18 Range/Units 07:18 08:05 09:25 RBC (4.30-5.90) m/uL Hgb (13.0-17.5) gm/dL Hct (39.0-53.0) % Neutrophils # (1.3-7.7) k/uL ABG pO2 140 H (83-108) mmHg ABG HCO3 27 H (21-25) mmol/L ABG Total CO2 29 H (19-24) mmol/L ABG O2 Saturation 99.8 H (94-97) % Potassium (3.5-5.1) mmol/L BUN (9-20) mg/dL Creatinine (0.66-1.25) mg/dL POC Glucose (mg/dL) 123 H 108 H (75-99) mg/dL Hemoglobin A1c (4.0-6.0) % Phosphorus (2.5-4.5) mg/dL Magnesium (1.6-2.3) mg/dL Iron (65-175) ug/dL Iron Saturation (15.00-50.00) Microbiology - Last 24 Hours (Table) 02/20/18 07:55 Gram Stain - Final Sputum Sputum Culture - Final 02/20/18 11:00 Urine Culture - Final Urine,Catheterized 02/19/18 23:29 Blood Culture - Preliminary Blood No Growth after 24 hours Assessment and Plan Assessment: Impression: 1 acute pulmonary edema and hypoxic respiratory failure secondary to diastolic dysfunction 2 acute on chronic kidney injury secondary to ATN. Nonoliguric. Patient is still responding to Lasix, and a chest x-ray is showing slight improvement. 3 profound hypoglycemia on presentation, requiring D10 infusion resolved, presently on insulin as per sliding scale and protocol. 4 multiple comorbidities including chronic anemia, chronic obstructive pulmonary disease, diabetes with diabetic neuropathy and nephropathy, history of hepatitis C infection and chronic liver disease, gout, previous history of deep vein thrombosis, chronic back pain, remote history of IV drug abuse, recent admission to the hospital with hypertensive emergency. Chronic kidney disease stage IV, biopsy-proven, related to diabetes. Recommendation: Continue present supportive care measures, will give the patient a trial of sedation interruption, assess mental status, may consider even a weaning trial depending on his overall mental status, continued the meantime diuretics, continue control of his diabetes, address electrolytes accordingly. Patient is being followed by nephrology. He is still on Lasix 80 mg IV push 3 times a day. Patient remains critically ill, overall prognosis is definitely poor, we'll address nutritional support today, patient will be seen by the dietitian, and will be started on enteral feeding. Continue GI and DVT prophylaxis. Critical care time is 40 minutes. Time with Patient: Greater than 30
[2018-02-22 11:56] LABS: Glucose,Whole Blood 128 mg/dL (75-99)
--- NOTE | 2018-02-22 12:22 | P.PN ---
Subjective -year-old gentleman was at came in with acute renal failure went into respiratory failure secondary to congestive heart failure exacerbation patient also has chronic kidney disease volume overload. Patient had normal ejection fraction the past patient is being treated for cardiorenal syndrome. Patient evidently had a seizure which was believed secondary to hyperglycemia although had an EEG after EEG patient was started on antiseizure medication. Neurology evaluated the patient. CAT scan of the head is essentially within normal limits and patient has rhonchus breath sounds crackles all over the lung palma patient continues to have pulmonary edema is diuresing well is minimal improvement in creatinine patient had hyperkalemia secondary to acute renal failure which improved with albuterol and Kayexlate, blood pressure improved and has gone high because of which patient was resumed on antidepressant medications. Patient is still on propofol drip assist-control ventilation. 02/22/2018 There is minimal improvement in creatinine significant improvement in pulmonary edema patient sedation will be turned off followed by weaning trial. EEG did not show any seizure focus showed diffuse encephalopathy from uremia most probably Objective - Vital Signs Vital signs: Vital Signs Temp 97.7 F 02/22/18 08:00 Pulse 77 02/22/18 12:20 Resp 14 02/22/18 10:30 BP 126/71 02/22/18 07:00 Pulse Ox 99 02/22/18 11:32 Intake & Output 02/21/18 02/22/18 02/22/18 18:59 06:59 18:59 Intake Total 294.432 220.038 245.725 Output Total 2150 2985 920 Balance -0355.568 -7644.962 -674.275 Weight 84.3 kg 84.3 kg Intake: IV 36 86 162 Dextrose 10% in Water 1, 0 000 ml In Empty Bag 1 bag @ 15 mls/hr IV .Q24H [facility] Rx#:[id number] Pressure bag 36 36 12 Sodium Ferric Gluconat- 100 Sucrose 125 mg In Sodium Chloride 0.9% 100 ml @ 100 mls/hr IVPB DAILY [facility] Rx#:[id number] Valproate Sodium 500 mg 50 50 In Sodium Chloride 0.9% 50 ml @ 50 mls/hr IVPB Q12HR [facility] Rx#:[id number] Intake, IV Titration 258.432 134.038 83.725 Amount Insulin Regular 100 unit 19.156 In Sodium Chloride 0.9% 100 ml @ Per Protocol IV .Q0M [facility] Rx#:[id number] Propofol 1,000 mg In 239.276 134.038 83.725 Empty Bag 1 bag @ Titrate IV .Q0M [facility] Rx#: [id number] Output: Urine 2150 2985 920 Other: Voiding Method Indwelling Catheter Indwelling Catheter Indwelling Catheter ABP, PAP, CO, CI - Last Documented Arterial Blood Pressure 144/64 - Exam PHYSICAL EXAMINATION: GENERAL: Patient is intubated sedated, HEENT: Pupils are round and equally reacting to light. EOMI. No scleral icterus. No conjunctival pallor. Normocephalic, atraumatic. No pharyngeal erythema. No thyromegaly. CARDIOVASCULAR: S1 and S2 present. No murmurs, rubs, or gallops. Does have elevated JVD PULMONARY: Chest is clear to auscultation, no wheezing or crackles. ABDOMEN: Soft, nontender, nondistended, normoactive bowel sounds. No palpable organomegaly. Anasarca MUSCULOSKELETAL: No joint swelling or deformity. EXTREMITIES: No cyanosis, clubbing, does have 2+ pitting pedal edema NEUROLOGICAL: Gross neurological examination did not reveal any focal deficits. SKIN: No rashes. - Labs CBC & Chem 7: 02/22/18 04:30 02/22/18 04:30 Labs: Abnormal Lab Results - Last 24 Hours (Table) 02/21/18 02/21/18 02/21/18 Range/Units 04:20 04:21 12:48 RBC (4.30-5.90) m/uL Hgb (13.0-17.5) gm/dL Hct (39.0-53.0) % Neutrophils # (1.3-7.7) k/uL ABG pO2 (83-108) mmHg ABG HCO3 (21-25) mmol/L ABG Total CO2 (19-24) mmol/L ABG O2 Saturation (94-97) % Potassium (3.5-5.1) mmol/L BUN (9-20) mg/dL Creatinine (0.66-1.25) mg/dL POC Glucose (mg/dL) 240 H (75-99) mg/dL Hemoglobin A1c 8.8 H (4.0-6.0) % Phosphorus (2.5-4.5) mg/dL Magnesium (1.6-2.3) mg/dL Iron 34 L (65-175) ug/dL Iron Saturation 10.76 L (15.00-50.00) 02/21/18 02/21/18 02/21/18 Range/Units 13:12 13:59 14:59 RBC (4.30-5.90) m/uL Hgb (13.0-17.5) gm/dL Hct (39.0-53.0) % Neutrophils # (1.3-7.7) k/uL ABG pO2 (83-108) mmHg ABG HCO3 (21-25) mmol/L ABG Total CO2 (19-24) mmol/L ABG O2 Saturation (94-97) % Potassium 5.5 H (3.5-5.1) mmol/L BUN (9-20) mg/dL Creatinine (0.66-1.25) mg/dL POC Glucose (mg/dL) 239 H 185 H (75-99) mg/dL Hemoglobin A1c (4.0-6.0) % Phosphorus (2.5-4.5) mg/dL Magnesium (1.6-2.3) mg/dL Iron (65-175) ug/dL Iron Saturation (15.00-50.00) 02/21/18 02/22/18 02/22/18 Range/Units 17:05 00:03 01:21 RBC (4.30-5.90) m/uL Hgb (13.0-17.5) gm/dL Hct (39.0-53.0) % Neutrophils # (1.3-7.7) k/uL ABG pO2 (83-108) mmHg ABG HCO3 (21-25) mmol/L ABG Total CO2 (19-24) mmol/L ABG O2 Saturation (94-97) % Potassium (3.5-5.1) mmol/L BUN (9-20) mg/dL Creatinine (0.66-1.25) mg/dL POC Glucose (mg/dL) 108 H 101 H 113 H (75-99) mg/dL Hemoglobin A1c (4.0-6.0) % Phosphorus (2.5-4.5) mg/dL Magnesium (1.6-2.3) mg/dL Iron (65-175) ug/dL Iron Saturation (15.00-50.00) 02/22/18 02/22/18 02/22/18 Range/Units 02:20 02:36 03:54 RBC (4.30-5.90) m/uL Hgb (13.0-17.5) gm/dL Hct (39.0-53.0) % Neutrophils # (1.3-7.7) k/uL ABG pO2 (83-108) mmHg ABG HCO3 (21-25) mmol/L ABG Total CO2 (19-24) mmol/L ABG O2 Saturation (94-97) % Potassium (3.5-5.1) mmol/L BUN (9-20) mg/dL Creatinine (0.66-1.25) mg/dL POC Glucose (mg/dL) 104 H 104 H 103 H (75-99) mg/dL Hemoglobin A1c (4.0-6.0) % Phosphorus (2.5-4.5) mg/dL Magnesium (1.6-2.3) mg/dL Iron (65-175) ug/dL Iron Saturation (15.00-50.00) 02/22/18 02/22/18 02/22/18 Range/Units 04:30 04:30 05:55 RBC 2.61 L (4.30-5.90) m/uL Hgb 7.7 L (13.0-17.5) gm/dL Hct 23.9 L (39.0-53.0) % Neutrophils # 8.1 H (1.3-7.7) k/uL ABG pO2 (83-108) mmHg ABG HCO3 (21-25) mmol/L ABG Total CO2 (19-24) mmol/L ABG O2 Saturation (94-97) % Potassium (3.5-5.1) mmol/L BUN 99 H (9-20) mg/dL Creatinine 6.75 H (0.66-1.25) mg/dL POC Glucose (mg/dL) 105 H (75-99) mg/dL Hemoglobin A1c (4.0-6.0) % Phosphorus 7.7 H (2.5-4.5) mg/dL Magnesium 2.4 H (1.6-2.3) mg/dL Iron (65-175) ug/dL Iron Saturation (15.00-50.00) 02/22/18 02/22/18 02/22/18 Range/Units 07:01 07:18 08:05 RBC (4.30-5.90) m/uL Hgb (13.0-17.5) gm/dL Hct (39.0-53.0) % Neutrophils # (1.3-7.7) k/uL ABG pO2 140 H (83-108) mmHg ABG HCO3 27 H (21-25) mmol/L ABG Total CO2 29 H (19-24) mmol/L ABG O2 Saturation 99.8 H (94-97) % Potassium (3.5-5.1) mmol/L BUN (9-20) mg/dL Creatinine (0.66-1.25) mg/dL POC Glucose (mg/dL) 120 H 123 H (75-99) mg/dL Hemoglobin A1c (4.0-6.0) % Phosphorus (2.5-4.5) mg/dL Magnesium (1.6-2.3) mg/dL Iron (65-175) ug/dL Iron Saturation (15.00-50.00) 02/22/18 02/22/18 Range/Units 09:25 11:54 RBC (4.30-5.90) m/uL Hgb (13.0-17.5) gm/dL Hct (39.0-53.0) % Neutrophils # (1.3-7.7) k/uL ABG pO2 (83-108) mmHg ABG HCO3 (21-25) mmol/L ABG Total CO2 (19-24) mmol/L ABG O2 Saturation (94-97) % Potassium (3.5-5.1) mmol/L BUN (9-20) mg/dL Creatinine (0.66-1.25) mg/dL POC Glucose (mg/dL) 108 H 128 H (75-99) mg/dL Hemoglobin A1c (4.0-6.0) % Phosphorus (2.5-4.5) mg/dL Magnesium (1.6-2.3) mg/dL Iron (65-175) ug/dL Iron Saturation (15.00-50.00) Microbiology - Last 24 Hours (Table) 02/20/18 07:55 Gram Stain - Final Sputum Sputum Culture - Final 02/20/18 11:00 Urine Culture - Final Urine,Catheterized 02/19/18 23:29 Blood Culture - Preliminary Blood No Growth after 24 hours Assessment and Plan Plan: Assessment and Plan Plan: Acute hypoxic respiratory failure: Secondary to congestive heart failure chronic diastolic dysfunction with acute exacerbation patient was started on high-dose of Lasix. Continuing with the ventilatory support, diurese well improved creatinine with Lasix. 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 -Hypotension is possibly secondary to sedation antidepressive medications will be held and restarted as needed. Hyperlipidemia -Episode of seizure believed to be secondary to hypoglycemia and encephalopathy EEG showed diffuse slowing. patient has metabolic and toxic encephalopathy
[2018-02-22] MEDS ORDERED: INSULIN ASPART 100 UNIT/ML 1 ML 10 ML VIAL SQ SCH (12:30)
[2018-02-22 15:25] LABS: Glucose,Whole Blood 166 mg/dL (75-99)
[2018-02-22] MEDS: INSULIN ASPART 100 UNIT/ML 1 ML 10 ML VIAL SQ SCH ×2 (15:40→20:01)
--- NOTE | 2018-02-22 16:33 | P.PN ---
Subjective Progress Note Date: 02/22/18 Patient is a 67-year-old -[place] male who is being followed by the neurology service for possible seizure. Patient was brought to [facility] emergency room with shortness of breath. He was found to have significant pulmonary edema. Patient does have stage IV chronic kidney disease. Patient was being treated in the emergency room when one of the nurses noted patient to be unresponsive. Patient had questionable jerking activity. Patient had significant hypoglycemia in the 20s. He was given D50, intubated and sedated. Patient is currently in the ICU. Computed tomography scan of the brain was done which showed no acute abnormality. Computed tomography scan did show evidence of mild generalized atrophy. Patient was noted to have some rhythmic jerking. Patient was taken off propofol and had an EEG done. EEG showed generalized slowing of the background rhythm. EEG also showed significant triphasic waves which is commonly seen in hepatic pathology. Myoclonic activity was described. Patient was started on Depakote 500 mg every 12 hours IV. Staff reports no further jerking movements since starting Depakote. Patient remains sedated with propofol and on mechanical ventilation. 02/22/2018 Patient is a 67-year-old -[place] male is being followed by the neurology service for seizures. Patient has a history of stage for chronic kidney disease. Patient was more short of breath at home and came to the emergency room was found have pulmonary edema. Patient in the ICU intubated on mechanical ventilation. Staff had noticed patient to have myoclonic jerking. EEG showed significant triphasic waves which is commonly seen in hepatic pathology. Patient was started on Depakote 500 mg IV every 12 hours. No further myoclonic jerking reported. Patient has been off of IV sedation for approximately 7 hours now and he continues to be unresponsive. At the time of my evaluation, patient continues to be intubated on mechanical ventilation without evidence of response. Objective - Vital Signs Vital signs: Vital Signs Temp 97.7 F 02/22/18 12:00 Pulse 75 02/22/18 16:03 Resp 14 02/22/18 14:00 BP 126/71 02/22/18 07:00 Pulse Ox 98 02/22/18 14:00 Intake & Output 02/21/18 02/22/18 02/22/18 18:59 06:59 18:59 Intake Total 294.432 220.038 277.725 Output Total 2150 2985 1995 Balance -1855.568 -2764.962 -1717.275 Weight 84.3 kg 84.3 kg Intake: IV 36 86 174 Dextrose 10% in Water 1, 0 000 ml In Empty Bag 1 bag @ 15 mls/hr IV .Q24H [facility] Rx#:[id number] Pressure bag 36 36 24 Sodium Ferric Gluconat- 100 Sucrose 125 mg In Sodium Chloride 0.9% 100 ml @ 100 mls/hr IVPB DAILY RA[facility] Rx#:[id number] Valproate Sodium 500 mg 50 50 In Sodium Chloride 0.9% 50 ml @ 50 mls/hr IVPB Q12HR [facility] Rx#:[id number] Intake, IV Titration 258.432 134.038 83.725 Amount Insulin Regular 100 unit 19.156 In Sodium Chloride 0.9% 100 ml @ Per Protocol IV .Q0M [facility] Rx#:[id number] Propofol 1,000 mg In 239.276 134.038 83.725 Empty Bag 1 bag @ Titrate IV .Q0M RAINE Rx#: [id number] Tube Feeding 20 Output: Urine 2150 2985 1994 Other: Voiding Method Indwelling Catheter Indwelling Catheter Indwelling Catheter ABP, PAP, CO, CI - Last Documented Arterial Blood Pressure 145/63 - Exam PHYSICAL EXAM: GENERAL APPEARANCE: Patient is an -[place] male who appears to be in no acute distress. He is intubated on mechanical ventilation. HEENT: Normocephalic, atraumatic, no obvious facial asymmetry is seen. CARDIOVASCULAR: Regular rate and rhythm. ABDOMEN: Nontender, nondistended. EXTREMITIES: Show no edema or clubbing. NEUROLOGICAL EXAM: A meaningful neurological exam could not be performed due to patient unresponsiveness and mechanical ventilation. Patient has trace gag reflex. Patient has silent toes. - Labs CBC & Chem 7: 02/22/18 04:30 02/22/18 04:30 Labs: Abnormal Lab Results - Last 24 Hours (Table) 02/21/18 02/21/18 02/21/18 Range/Units 04:20 04:21 17:05 RBC (4.30-5.90) m/uL Hgb (13.0-17.5) gm/dL Hct (39.0-53.0) % Neutrophils # (1.3-7.7) k/uL ABG pO2 (83-108) mmHg ABG HCO3 (21-25) mmol/L ABG Total CO2 (19-24) mmol/L ABG O2 Saturation (94-97) % BUN (9-20) mg/dL Creatinine (0.66-1.25) mg/dL POC Glucose (mg/dL) 108 H (75-99) mg/dL Hemoglobin A1c 8.8 H (4.0-6.0) % Phosphorus (2.5-4.5) mg/dL Magnesium (1.6-2.3) mg/dL Iron 34 L (65-175) ug/dL Iron Saturation 10.76 L (15.00-50.00) 02/22/18 02/22/18 02/22/18 Range/Units 00:03 01:21 02:20 RBC (4.30-5.90) m/uL Hgb (13.0-17.5) gm/dL Hct (39.0-53.0) % Neutrophils # (1.3-7.7) k/uL ABG pO2 (83-108) mmHg ABG HCO3 (21-25) mmol/L ABG Total CO2 (19-24) mmol/L ABG O2 Saturation (94-97) % BUN (9-20) mg/dL Creatinine (0.66-1.25) mg/dL POC Glucose (mg/dL) 101 H 113 H 104 H (75-99) mg/dL Hemoglobin A1c (4.0-6.0) % Phosphorus (2.5-4.5) mg/dL Magnesium (1.6-2.3) mg/dL Iron (65-175) ug/dL Iron Saturation (15.00-50.00) 02/22/18 02/22/18 02/22/18 Range/Units 02:36 03:54 04:30 RBC 2.61 L (4.30-5.90) m/uL Hgb 7.7 L (13.0-17.5) gm/dL Hct 23.9 L (39.0-53.0) % Neutrophils # 8.1 H (1.3-7.7) k/uL ABG pO2 (83-108) mmHg ABG HCO3 (21-25) mmol/L ABG Total CO2 (19-24) mmol/L ABG O2 Saturation (94-97) % BUN (9-20) mg/dL Creatinine (0.66-1.25) mg/dL POC Glucose (mg/dL) 104 H 103 H (75-99) mg/dL Hemoglobin A1c (4.0-6.0) % Phosphorus (2.5-4.5) mg/dL Magnesium (1.6-2.3) mg/dL Iron (65-175) ug/dL Iron Saturation (15.00-50.00) 02/22/18 02/22/18 02/22/18 Range/Units 04:30 05:55 07:01 RBC (4.30-5.90) m/uL Hgb (13.0-17.5) gm/dL Hct (39.0-53.0) % Neutrophils # (1.3-7.7) k/uL ABG pO2 (83-108) mmHg ABG HCO3 (21-25) mmol/L ABG Total CO2 (19-24) mmol/L ABG O2 Saturation (94-97) % BUN 99 H (9-20) mg/dL Creatinine 6.75 H (0.66-1.25) mg/dL POC Glucose (mg/dL) 105 H 120 H (75-99) mg/dL Hemoglobin A1c (4.0-6.0) % Phosphorus 7.7 H (2.5-4.5) mg/dL Magnesium 2.4 H (1.6-2.3) mg/dL Iron (65-175) ug/dL Iron Saturation (15.00-50.00) 02/22/18 02/22/18 02/22/18 Range/Units 07:18 08:05 09:25 RBC (4.30-5.90) m/uL Hgb (13.0-17.5) gm/dL Hct (39.0-53.0) % Neutrophils # (1.3-7.7) k/uL ABG pO2 140 H (83-108) mmHg ABG HCO3 27 H (21-25) mmol/L ABG Total CO2 29 H (19-24) mmol/L ABG O2 Saturation 99.8 H (94-97) % BUN (9-20) mg/dL Creatinine (0.66-1.25) mg/dL POC Glucose (mg/dL) 123 H 108 H (75-99) mg/dL Hemoglobin A1c (4.0-6.0) % Phosphorus (2.5-4.5) mg/dL Magnesium (1.6-2.3) mg/dL Iron (65-175) ug/dL Iron Saturation (15.00-50.00) 02/22/18 02/22/18 Range/Units 11:54 15:23 RBC (4.30-5.90) m/uL Hgb (13.0-17.5) gm/dL Hct (39.0-53.0) % Neutrophils # (1.3-7.7) k/uL ABG pO2 (83-108) mmHg ABG HCO3 (21-25) mmol/L ABG Total CO2 (19-24) mmol/L ABG O2 Saturation (94-97) % BUN (9-20) mg/dL Creatinine (0.66-1.25) mg/dL POC Glucose (mg/dL) 128 H 166 H (75-99) mg/dL Hemoglobin A1c (4.0-6.0) % Phosphorus (2.5-4.5) mg/dL Magnesium (1.6-2.3) mg/dL Iron (65-175) ug/dL Iron Saturation (15.00-50.00) Microbiology - Last 24 Hours (Table) 02/19/18 23:29 Blood Culture - Preliminary Blood No Growth after 48 hours 02/20/18 07:55 Gram Stain - Final Sputum Sputum Culture - Final 02/20/18 11:00 Urine Culture - Final Urine,Catheterized Assessment and Plan Plan: Impression: 1. Episode of altered consciousness 2. Possible seizures/myoclonic jerking 3. Chronic renal failure 4. Respiratory failure 5. Pulmonary edema Recommendation: Patient may have had initial seizure due to severe hypoglycemia , however, patient continued to have rhythmic jerking and was started on Depakote. EEG showed triphasic waves consistent with hepatic pathology. Continue Depakote 500 mg IV every 12 hours. As mentioned above, computed tomography scan of the brain showed no acute findings. Patient has been off of sedation several hours and remains unresponsive. Continue current ICU management and treatment. Nephrology is following. I will continue to follow with you. Further recommendations to follow. I performed an examination of the patient and discussed the management with the MILLING MACHINE TENDER. I have reviewed the MILLING MACHINE TENDER notes and agree with the findings and plan of care.
[2018-02-22] MEDS ORDERED: VALPROATE SODIUM 750 MG in SODIUM CHLORIDE 0.9% 50 ML IVPB ONE (17:25)
[2018-02-22] MEDS ORDERED: SALINE IVPB STA (19:37)
[2018-02-22] MEDS ORDERED: LEVETIRACETAM IVPB STA (19:37)
[2018-02-22 19:52] LABS: Glucose,Whole Blood 162 mg/dL (75-99)
[2018-02-22] MEDS: ATORVASTATIN 10 MG TAB PO SCH (20:01)
[2018-02-23 00:15] LABS: Glucose,Whole Blood 190 mg/dL (75-99)
[2018-02-23] MEDS: INSULIN ASPART 100 UNIT/ML 1 ML 10 ML VIAL SQ SCH ×6 (00:16→21:07)
[2018-02-23] MEDS: HEPARIN SODIUM,PORCINE 5,000 UNIT/ML 1 ML VIAL SQ SCH ×3 (00:16→15:15)
[2018-02-23] MEDS: FUROSEMIDE 10 MG/ML 10 ML VIAL IV SCH ×3 (00:17→21:08)
[2018-02-23] MEDS: hydrALAZINE HCL 20 MG/ML 1 ML VIAL IVP PRN ×4 (03:06→18:41)
[2018-02-23 03:11] LABS: Glucose,Whole Blood 181 mg/dL (75-99)
[2018-02-23] MEDS: IPRATROPIUM-ALBUTEROL 3 ML NEB INHALATION SCH ×6 (03:34→23:15)
[2018-02-23 04:41] LABS: Basophils % (A) 0 %; Eosinophils # (A) 0.1 k/uL (0-0.7); Eosinophils % (A) 1 %; HGB 8.3 gm/dL (13.0-17.5); Hypochromasia Slight; Lymphocytes # (A) 0.6 k/uL (1.0-4.8); Lymphocytes % (A) 6 %; MCH 28.7 pg (25.0-35.0); MCHC 31.8 g/dL (31.0-37.0); MCV 90.2 fL (80.0-100.0); Mean Platelet Volume 8.5; Monocytes # (A) 0.3 k/uL (0-1.0); Monocytes % (A) 3 %; Neutrophils # (A) 8.7 k/uL (1.3-7.7); Neutrophils % (A) 89 %; Platelet Count 349 k/uL (150-450); RBC 2.88 m/uL (4.30-5.90); RDW 14.2 % (11.5-15.5); WBC 9.8 k/uL (3.8-10.6)
[2018-02-23 05:14] LABS: Magnesium 2.3 mg/dL (1.6-2.3); Phosphorus 8.7 mg/dL (2.5-4.5); Potassium 4.5 mmol/L (3.5-5.1)
[2018-02-23 05:18] LABS: Valproic Acid (Depakene) 33.5 ug/mL
--- NOTE | 2018-02-23 06:47 | XR ---
EXAMINATION TYPE: XR chest 1V portable DATE OF EXAM: 02/23/2018 HISTORY: Tube placement. REFERENCE: Previous study dated 02/22/2018. FINDINGS: The patient is ET tube, NG tube and right subclavian catheter remain in place, unchanged in appearance. There is bilateral basilar airspace disease. There are bilateral effusions. Heart size is upper limit s of normal. IMPRESSION: 1. CONTINUING BIBASILAR AIRSPACE DISEASE. 2. SMALL BILATERAL EFFUSIONS. 3. BORDERLINE CARDIOMEGALY.
[2018-02-23 07:29] LABS: ABG HCO3 29 mmol/L (21-25); ABG Oxygen Saturation 99.6 % (94-97); ABG PCO2 41 mmHg (35-45); ABG PH 7.46 (7.35-7.45); ABG PO2 126 mmHg (83-108); ABG TCO2 30 mmol/L (19-24)
[2018-02-23] MEDS: CALCIUM ACETATE 667 MG CAP PO SCH ×3 (07:41→18:06)
[2018-02-23] MEDS: amLODIPine 10 MG TAB PO SCH ×2 (07:41→09:05)
[2018-02-23] MEDS: LABETALOL 200 MG TAB PO SCH ×4 (07:42→21:07)
[2018-02-23] MEDS: CHLORHEXIDINE GLUCONATE 15 ML CUP MUCOUS MEM SCH ×2 (08:08→21:07)
[2018-02-23] MEDS: GABAPENTIN 100 MG CAP PO SCH ×3 (08:08→21:07)
[2018-02-23] MEDS: PANTOPRAZOLE 40 MG/10 ML VIAL IVP SCH (08:08)
[2018-02-23] MEDS: TAMSULOSIN 0.4 MG CAP.ER.24H PO SCH (08:09)
[2018-02-23] MEDS: SODIUM BICARBONATE TAB 650 MG TAB PO SCH (08:09)
[2018-02-23 08:23] LABS: Glucose,Whole Blood 221 mg/dL (75-99)
[2018-02-23] MEDS: SODIUM FERRIC GLUCONAT-SUCROSE 125 MG in SODIUM CHLORIDE 0.9% 100 ML IVPB SCH (09:18)
[2018-02-23] MEDS: VALPROATE SODIUM 500 MG in SODIUM CHLORIDE 0.9% 50 ML IVPB SCH ×3 (09:38→21:08)
--- NOTE | 2018-02-23 10:31 | P.PN ---
Subjective Patient is seen in follow-up for acute kidney injury on chronic kidney disease. Patient has chronic kidney disease stage IV secondary to biopsy-proven diabetic kidney disease with severe chronicity. His baseline creatinine has been in the range of 4-5. Creatinine was 7.65 on admission and is 5.99 today. Patient was noted to have volume overload with generalized anasarca and is currently maintained on Lasix 80 mg IV three times daily. He is nonoliguric. Currently intubated. Patient is not responding much to stimuli and there is concern for anoxic injury. Vital signs are stable. General: The patient appeared well nourished and normally developed. Intubated. HEENT: Head exam is unremarkable. Neck is without jugular venous distension. LUNGS: Breath sounds decreased. HEART: Rate and Rhythm are regular. First and second heart sounds normal. No murmurs, rubs or gallops. ABDOMEN: Abdominal exam reveals normal bowel sounds. Non-tender and non- distended. No evidence of peritonitis. EXTREMITITES: No clubbing, cyanosis, or edema. Right BKA noted. Objective - Vital Signs Vital signs: Vital Signs Temp 98.8 F 02/23/18 06:00 Pulse 97 02/23/18 08:46 Resp 15 02/23/18 07:00 BP 171/79 02/23/18 07:00 Pulse Ox 98 02/23/18 07:00 Intake & Output 02/22/18 02/23/18 02/23/18 18:59 06:59 18:59 Intake Total 452.725 186 315 Output Total 3295 1530 225 Balance -2842.275 -1344 90 Weight 84.3 kg 78.7 kg Intake: IV 239 86 159 Pressure bag 39 36 9 Sodium Ferric Gluconat- 100 100 Sucrose 125 mg In Sodium Chloride 0.9% 100 ml @ 100 mls/hr IVPB DAILY [facility] Rx#:[id number] Valproate Sodium 500 mg 100 50 50 In Sodium Chloride 0.9% 50 ml @ 50 mls/hr IVPB Q12HR [facility] Rx#:[id number] Intake, IV Titration 83.725 Amount Propofol 1,000 mg In 83.725 Empty Bag 1 bag @ Titrate IV .Q0M [facility] Rx#: [id number] Tube Feeding 100 100 126 Other 30 30 Output: Urine 3295 1530 225 Other: Voiding Method Indwelling Catheter Indwelling Catheter ABP, PAP, CO, CI - Last Documented Arterial Blood Pressure 170/68 - Labs CBC & Chem 7: 02/23/18 04:15 02/23/18 04:15 Labs: Abnormal Lab Results - Last 24 Hours (Table) 02/22/18 02/22/18 02/22/18 Range/Units 11:54 15:23 19:50 RBC (4.30-5.90) m/uL Hgb (13.0-17.5) gm/dL Hct (39.0-53.0) % Neutrophils # (1.3-7.7) k/uL Lymphocytes # (1.0-4.8) k/uL ABG pH (7.35-7.45) ABG pO2 (83-108) mmHg ABG HCO3 (21-25) mmol/L ABG Total CO2 (19-24) mmol/L ABG O2 Saturation (94-97) % BUN (9-20) mg/dL Creatinine (0.66-1.25) mg/dL Glucose (74-99) mg/dL POC Glucose (mg/dL) 128 H 166 H 162 H (75-99) mg/dL Phosphorus (2.5-4.5) mg/dL 02/23/18 02/23/18 02/23/18 Range/Units 00:13 03:10 04:15 RBC 2.88 L (4.30-5.90) m/uL Hgb 8.3 L (13.0-17.5) gm/dL Hct 26.0 L (39.0-53.0) % Neutrophils # 8.7 H (1.3-7.7) k/uL Lymphocytes # 0.6 L (1.0-4.8) k/uL ABG pH (7.35-7.45) ABG pO2 (83-108) mmHg ABG HCO3 (21-25) mmol/L ABG Total CO2 (19-24) mmol/L ABG O2 Saturation (94-97) % BUN (9-20) mg/dL Creatinine (0.66-1.25) mg/dL Glucose (74-99) mg/dL POC Glucose (mg/dL) 190 H 181 H (75-99) mg/dL Phosphorus (2.5-4.5) mg/dL 02/23/18 02/23/18 02/23/18 Range/Units 04:15 07:24 08:20 RBC (4.30-5.90) m/uL Hgb (13.0-17.5) gm/dL Hct (39.0-53.0) % Neutrophils # (1.3-7.7) k/uL Lymphocytes # (1.0-4.8) k/uL ABG pH 7.46 H (7.35-7.45) ABG pO2 126 H (83-108) mmHg ABG HCO3 29 H (21-25) mmol/L ABG Total CO2 30 H (19-24) mmol/L ABG O2 Saturation 99.6 H (94-97) % BUN 107 H* (9-20) mg/dL Creatinine 5.99 H (0.66-1.25) mg/dL Glucose 131 H (74-99) mg/dL POC Glucose (mg/dL) 221 H (75-99) mg/dL Phosphorus 8.7 H (2.5-4.5) mg/dL Microbiology - Last 24 Hours (Table) 02/19/18 23:29 Blood Culture - Preliminary Blood No Growth after 48 hours 02/20/18 07:55 Gram Stain - Final Sputum Sputum Culture - Final Assessment and Plan Plan: Assessment: 1. Acute kidney injury secondary to ATN secondary to cardiorenal syndrome. Creatinine 7.65 on admission and is 5.99 this morning. 2. Chronic kidney disease stage IV with baseline creatinine in the range of 4- 5. Etiology is biopsy proven diabetic kidney disease. He is noted to have severe chronicity. 3. Hyperkalemia secondary to acute kidney injury. Improved with medical management. 4. Insulin-dependent diabetes mellitus. 5. Hypertension with chronic kidney disease. 5. Volume overload. Improving. 6. Diastolic CHF. 7. Acute hypoxic respiratory failure currently intubated. 8. Anemia of chronic kidney disease. Iron deficiency noted. 9. History of hepatitis C. He was to follow-up with GI as outpatient. 10. Hyperphosphatemia secondary to acute kidney injury maintained on PhosLo. 11. Seizure which appears to be due to hypoglycemia. Neurology following. Concern for and OxyIR. Plan: I will decrease Lasix to 80 mg IV twice daily. Avoid nephrotoxins. Strict I's and O's. Decreased dose of Neurontin to 100 mg 3 times daily. Ferrlecit 125 mg IV daily for 3 days. Second dose today. Wean FiO2. Continue to monitor renal function and urine output. Will assess for need for renal replacement therapy on a day-to-day basis.
[2018-02-23 12:21] LABS: Glucose,Whole Blood 281 mg/dL (75-99)
--- NOTE | 2018-02-23 13:08 | P.PN ---
Subjective Progress Note Date: 02/23/18 Principal diagnosis: Acute hypoxic respiratory failure secondary to pulmonary edema, diastolic congestive heart failure. This is a 67-year-old -[place] male, is brought to the emergency department on on 02/19/2018 at 2300 for evaluation of worsening dyspnea, abdominal distention and confusion. Patient has a past medical history of stage IV CKD, peripheral vascular disease with right below-knee amputation, COPD , diabetes mellitus, hyperlipidemia, hypertension, hepatitis B and hepatitis C viral infection, BPH, gout, previous history of DVT on anticoagulation, back pain, anxiety and depression, remote history of IV drug abuse, chronic anemia, and cocaine use. Patient was recently hospitalized at this hospital, for acute on chronic renal failure. Patient did have an admission to the intensive care during that hospitalization for hypertensive emergency, pulmonary edema, chest pain, patient was managed with Cleviprex, Lasix, lisinopril. Echocardiogram on 02/07/2018 showed left ventricular systolic function with EF of 50-55%, mild MR , mild TR, no pulmonary hypertension. Patient underwent renal biopsy confirmed diabetic kidney disease, stage IV CKD. Patient was discharged to [facility] on 02/14/2018. Yesterday patient was noted to be acting strange, he was attempting to squat down in the hallway go to the bathroom. He was reportedly constipated and had not had a bowel movement in several days. He was complaining of abdominal distention. Denied any nausea or vomiting. He was becoming more short of breath due to his abdominal distention. Denies any fever or chills. Chest x- ray in the emergency department showed pleural effusions and bilateral lower lobe pulmonary infiltrates. KUB abdomen showed constipation, no free air, possible right renal calculi, single distended loop of small bowel in the left lower quadrant, questionable small bowel obstruction. Abdomen/pelvis CT showed extensive subcutaneous edema consistent with anasarca, cardiomegaly with pleural effusions and basilar pulmonary infiltrates/or atelectasis. Brain CT showed cerebral atrophy, but no acute intracranial abnormality. While in the emergency department patient's condition had deteriorated, he became unresponsive, and frothing at the mouth. He was noted to have seizure type activity, and patient was intubated and placed on mechanical ventilator. Labs showed no evidence of leukocytosis, WBC is 7.9, hemoglobin is 8.3, sodium is 132 , potassium was 5.8, BUN was 107, and creatinine was 7.65. Troponin was negative, proBNP was elevated at 10,700. Postintubation blood gas was obtained , and showed pO2 58, pCO2 41, and pH of 7.41. Patient's blood glucose was checked and it was less than 20. Patient is on mechanical ventilator this morning, he is sedated, on propofol drip which is currently infusing at a rate of 35 mics per kilo per minute. He was placed on D5 half-normal saline at a rate of 50 ML per hour for persistent hypoglycemia, and patient's blood sugar was treated multiple times with rounds of D50. Patient is hypothermic this morning with a temp of 93.6 rectally, he is being warmed with a bear hugger, his current blood pressure is 118/75, patient is not on any vasopressor support , sinus rhythm on the monitor with a rate of 64 BPM. On vent settings are assist-control mode with a rate of 14, tidal volume of 500, FiO2 of 50% and PEEP of 5. This morning's chest x-ray shows new pulmonary alveolar edema, small pleural effusions and cardiomegaly.'s morning's lab work was reviewed, WBC is 4.9, hemoglobin is 7.1, sodium is 135, potassium is 4.7 after being treated with Kayexalate, insulin and D50. BUN is 100, creatinine is 7.26, patient was seen by nephrology, he was given a dose of IV Lasix 80 mg and he is producing 32-140 ML per hour urine. Patient was reevaluated today on 02/21/2018, remains on mechanical ventilation, ventilator settings are tidal volume of 500 assist control rate 14 FiO2 50% and PEEP of 5. ABG showed a pO2 of 108 pCO2 of 36 pH of 7.43. Potassium remains elevated at 5.9, BUN is 102 creatinine 6.92, patient remains on diuretics, and he is being followed by nephrology regarding his renal failure. May have to be seriously considered for hemodialysis. Chest x-ray continues to show evidence of pulmonary edema, hence more Lasix was given today. Urine output seems to be reasonable. Patient is negative about over a liter in the last 24 hours. Reevaluated on 02/22/2018, remains on mechanical ventilation, same ventilator settings as noted above, however considering his ABG I cut him down to 40% FiO2. Remains on assist control rate of 14 and tidal volume of 500 PEEP of 5. ABG this morning showed a pO2 of 140 pCO2 of 39 pH of 7.45. Chest x-ray is showing evidence of improved pulmonary edema. Urine output is excellent with diuretics. Remains on Lasix every 12 hours. His renal profile showed about the same BUN is 99 creatinine is 6.75 today. Slightly improved compared to the last couple of days. Patient is definitely nonoliguric. Patient remains on propofol, and I plan to give him a trial of weaning if tolerated once he is off the propofol. Sedation interruption will be done today. Reevaluated today on 02/23/2018, patient remains on mechanical ventilation, same ventilator settings, FiO2 was decreased further down, rest of the vent settings are basically the same.ABG showed a pO2 of 126 pCO2 of 41 pH of 7.46. CBC is relatively normal hemoglobin is 8.3.renal profile remains quite abnormal with a BUN of 107 creatinine of 5.99. Patient is receiving nutritional support via enteral feeding, however he is hemodynamically stable and not requiring any pressors. Neurological rain, patient is unresponsive he has been off sedation for the last 24 hours, cannot awaken the patient, and he is not following any instructions. Neurology was notified, the only recommendation was repeat EEG although he had an EEG yesterday.metabolically,nothing to explain his unresponsiveness, sugars are in the 200s range, and electrolytes are relatively unremarkable. The only metabolic abnormality is actually his renal profile.valproic acid level is 33.5 subtherapeutic. However that's being addressed by neurology on the case. Objective - Vital Signs Vital signs: Vital Signs Temp 99.3 F 02/23/18 08:00 Pulse 91 02/23/18 11:29 Resp 18 02/23/18 10:00 BP 171/79 02/23/18 07:00 Pulse Ox 98 02/23/18 10:00 Intake & Output 02/22/18 02/23/18 02/23/18 18:59 06:59 18:59 Intake Total 452.725 186 357 Output Total 3295 1530 225 Balance -4652.275 -1344 132 Weight 84.3 kg 78.7 kg Intake: IV 239 86 159 Pressure bag 39 36 9 Sodium Ferric Gluconat- 100 100 Sucrose 125 mg In Sodium Chloride 0.9% 100 ml @ 100 mls/hr IVPB DAILY RAINE Rx#:[id number] Valproate Sodium 500 mg 100 50 50 In Sodium Chloride 0.9% 50 ml @ 50 mls/hr IVPB Q12HR RAINE Rx#:[id number] Intake, IV Titration 83.725 Amount Propofol 1,000 mg In 83.725 Empty Bag 1 bag @ Titrate IV .Q0M RAINE Rx#: [id number] Tube Feeding 100 100 168 Other 30 30 Output: Urine 3295 1530 225 Other: Voiding Method Indwelling Catheter Indwelling Catheter Indwelling Catheter ABP, PAP, CO, CI - Last Documented Arterial Blood Pressure 155/65 - Exam GENERAL: revealed a 67-year-old black male, on mechanical ventilation, off propofol, unresponsive to any painful or verbal stimuli. Head: Atraumatic, normocephalic.intact endotracheal and orogastric tubes noted. HEENT: PERRLA, EOMI, moist mucous membranes, no icterus. CARDIOVASCULAR: S1 and S2 present. No murmurs, rubs, or gallops. PULMONARY: fine crackles bilaterally, otherwise no rhonchi and no wheezes. Symmetrical chest expansion is noted... ABDOMEN: Soft, nontender, nondistended, normoactive bowel sounds. No palpable organomegaly. MUSCULOSKELETAL: No deformities, range of motion is intact. EXTREMITIES: No cyanosis, clubbing, does have 1+ pitting pedal edema. Right below-knee amputation is noted. NEUROLOGICAL: unresponsive to any painful or verbal stimuli, being addressed by neurology. - Labs CBC & Chem 7: 02/23/18 04:15 02/23/18 04:15 Labs: Abnormal Lab Results - Last 24 Hours (Table) 02/22/18 02/22/18 02/23/18 Range/Units 15:23 19:50 00:13 RBC (4.30-5.90) m/uL Hgb (13.0-17.5) gm/dL Hct (39.0-53.0) % Neutrophils # (1.3-7.7) k/uL Lymphocytes # (1.0-4.8) k/uL ABG pH (7.35-7.45) ABG pO2 (83-108) mmHg ABG HCO3 (21-25) mmol/L ABG Total CO2 (19-24) mmol/L ABG O2 Saturation (94-97) % BUN (9-20) mg/dL Creatinine (0.66-1.25) mg/dL Glucose (74-99) mg/dL POC Glucose (mg/dL) 166 H 162 H 190 H (75-99) mg/dL Phosphorus (2.5-4.5) mg/dL 02/23/18 02/23/18 02/23/18 Range/Units 03:10 04:15 04:15 RBC 2.88 L (4.30-5.90) m/uL Hgb 8.3 L (13.0-17.5) gm/dL Hct 26.0 L (39.0-53.0) % Neutrophils # 8.7 H (1.3-7.7) k/uL Lymphocytes # 0.6 L (1.0-4.8) k/uL ABG pH (7.35-7.45) ABG pO2 (83-108) mmHg ABG HCO3 (21-25) mmol/L ABG Total CO2 (19-24) mmol/L ABG O2 Saturation (94-97) % BUN 107 H* (9-20) mg/dL Creatinine 5.99 H (0.66-1.25) mg/dL Glucose 131 H (74-99) mg/dL POC Glucose (mg/dL) 181 H (75-99) mg/dL Phosphorus 8.7 H (2.5-4.5) mg/dL 02/23/18 02/23/18 02/23/18 Range/Units 07:24 08:20 12:01 RBC (4.30-5.90) m/uL Hgb (13.0-17.5) gm/dL Hct (39.0-53.0) % Neutrophils # (1.3-7.7) k/uL Lymphocytes # (1.0-4.8) k/uL ABG pH 7.46 H (7.35-7.45) ABG pO2 126 H (83-108) mmHg ABG HCO3 29 H (21-25) mmol/L ABG Total CO2 30 H (19-24) mmol/L ABG O2 Saturation 99.6 H (94-97) % BUN (9-20) mg/dL Creatinine (0.66-1.25) mg/dL Glucose (74-99) mg/dL POC Glucose (mg/dL) 221 H 281 H (75-99) mg/dL Phosphorus (2.5-4.5) mg/dL Microbiology - Last 24 Hours (Table) 02/19/18 23:29 Blood Culture - Preliminary Blood No Growth after 72 hours 02/20/18 07:55 Gram Stain - Final Sputum Sputum Culture - Final Assessment and Plan Assessment: Impression: 1 acute pulmonary edema and hypoxic respiratory failure secondary to diastolic dysfunction 2 acute on chronic kidney injury secondary to ATN. Nonoliguric. remains on Lasix with improvement of his overall fluid status and chest x-ray. 3 profound hypoglycemia on presentation, resolved 4 multiple comorbidities including chronic anemia, chronic obstructive pulmonary disease, diabetes with diabetic neuropathy and nephropathy, history of hepatitis C infection and chronic liver disease, gout, previous history of deep vein thrombosis, chronic back pain, remote history of IV drug abuse, recent admission to the hospital with hypertensive emergency. Chronic kidney disease stage IV, biopsy-proven, related to diabetes. Recommendation:continue supportive care measures, notified urology about his neurological status, continue hemodynamic and nutritional support, continue diuretics, continue GI and DVT prophylaxis, patient remains critically ill, especially now with his new neurological finding, has been off propofol for the last 24 hours.we'll continue to monitor in the ICU, no family members available at bedside, but I discussed his condition with his sister couple days ago. Prognosis is extremely poor and guarded.critical care time is 38 min
--- NOTE | 2018-02-23 14:29 | P.PN ---
Subjective Patient is a 67-year-old -[place] male who is being followed by the neurology service for possible seizure. Patient was brought to [facility] emergency room with shortness of breath. He was found to have significant pulmonary edema. Patient does have stage IV chronic kidney disease. Patient was being treated in the emergency room when one of the nurses noted patient to be unresponsive. Patient had questionable jerking activity. Patient had significant hypoglycemia in the 20s. He was given D50, intubated and sedated. Patient is currently in the ICU. Computed tomography scan of the brain was done which showed no acute abnormality. Computed tomography scan did show evidence of mild generalized atrophy. Patient was noted to have some rhythmic jerking. Patient was taken off propofol and had an EEG done. EEG showed generalized slowing of the background rhythm. EEG also showed significant triphasic waves which is commonly seen in hepatic pathology. Myoclonic activity was described. Patient was started on Depakote 500 mg every 12 hours IV. Staff reports no further jerking movements since starting Depakote. Patient remains sedated with propofol and on mechanical ventilation. acute kidney injury on chronic kidney disease. Patient has chronic kidney disease stage IV secondary to biopsy-proven diabetic kidney disease with severe chronicity. His baseline creatinine has been in the range of 4-5. Creatinine was 7.65 on admission 02/23/2018 this is my first day taking care of the pt , pt is still on vent , he has been off sedation , however he is still not waking up as expected . pt could have metabolic encephalopathy , vs other . pt with acute on chronic Kidney disease stage IV. nephrology are following the case .Creatinine was 7.65 on admission and is 5.99 today. pt is been seen by neurology who recommended to repeat the EEG and result is pending.pt had subtherapeutic level and extra doses were provided for him yesterday EEG from 02/21: abnormal with significant triphasic waves which is commonly seen in hepatic encephalopahty pt still does not respond to pain stimuli. despite been off sedation since this morning. pupils are equal and reactive to light, meningeal signs were absent when i examined the pt this morning pt has h/o Hep C and B , we will check ammonia level and other work up like B12 ,thyroid function test, syphlis screen ,repeat CT of the head ,with neurology follow up. no fever , no leukocytosis Objective - Vital Signs Vital signs: Vital Signs Temp 98.7 F 02/23/18 12:00 Pulse 89 02/23/18 13:00 Resp 15 02/23/18 13:00 BP 171/79 02/23/18 07:00 Pulse Ox 97 02/23/18 13:00 Intake & Output 02/22/18 02/23/18 02/23/18 18:59 06:59 18:59 Intake Total 452.725 186 648 Output Total 3295 1530 900 Balance -2842.275 -1344 -252 Weight 84.3 kg 78.7 kg Intake: IV 239 86 168 Pressure bag 39 36 18 Sodium Ferric Gluconat- 100 100 Sucrose 125 mg In Sodium Chloride 0.9% 100 ml @ 100 mls/hr IVPB DAILY [facility] Rx#:[id number] Valproate Sodium 500 mg 100 50 50 In Sodium Chloride 0.9% 50 ml @ 50 mls/hr IVPB Q12HR [facility] Rx#:[id number] Intake, IV Titration 83.725 Amount Propofol 1,000 mg In 83.725 Empty Bag 1 bag @ Titrate IV .Q0M RAINE Rx#: [id number] Tube Feeding 100 100 420 Other 30 60 Output: Urine 3295 1530 900 Other: Voiding Method Indwelling Catheter Indwelling Catheter Indwelling Catheter ABP, PAP, CO, CI - Last Documented Arterial Blood Pressure 159/65 - Labs CBC & Chem 7: 02/23/18 04:15 02/23/18 04:15 Labs: Abnormal Lab Results - Last 24 Hours (Table) 02/22/18 02/22/18 02/23/18 Range/Units 15:23 19:50 00:13 RBC (4.30-5.90) m/uL Hgb (13.0-17.5) gm/dL Hct (39.0-53.0) % Neutrophils # (1.3-7.7) k/uL Lymphocytes # (1.0-4.8) k/uL ABG pH (7.35-7.45) ABG pO2 (83-108) mmHg ABG HCO3 (21-25) mmol/L ABG Total CO2 (19-24) mmol/L ABG O2 Saturation (94-97) % BUN (9-20) mg/dL Creatinine (0.66-1.25) mg/dL Glucose (74-99) mg/dL POC Glucose (mg/dL) 166 H 162 H 190 H (75-99) mg/dL Phosphorus (2.5-4.5) mg/dL 02/23/18 02/23/18 02/23/18 Range/Units 03:10 04:15 04:15 RBC 2.88 L (4.30-5.90) m/uL Hgb 8.3 L (13.0-17.5) gm/dL Hct 26.0 L (39.0-53.0) % Neutrophils # 8.7 H (1.3-7.7) k/uL Lymphocytes # 0.6 L (1.0-4.8) k/uL ABG pH (7.35-7.45) ABG pO2 (83-108) mmHg ABG HCO3 (21-25) mmol/L ABG Total CO2 (19-24) mmol/L ABG O2 Saturation (94-97) % BUN 107 H* (9-20) mg/dL Creatinine 5.99 H (0.66-1.25) mg/dL Glucose 131 H (74-99) mg/dL POC Glucose (mg/dL) 181 H (75-99) mg/dL Phosphorus 8.7 H (2.5-4.5) mg/dL 02/23/18 02/23/18 02/23/18 Range/Units 07:24 08:20 12:01 RBC (4.30-5.90) m/uL Hgb (13.0-17.5) gm/dL Hct (39.0-53.0) % Neutrophils # (1.3-7.7) k/uL Lymphocytes # (1.0-4.8) k/uL ABG pH 7.46 H (7.35-7.45) ABG pO2 126 H (83-108) mmHg ABG HCO3 29 H (21-25) mmol/L ABG Total CO2 30 H (19-24) mmol/L ABG O2 Saturation 99.6 H (94-97) % BUN (9-20) mg/dL Creatinine (0.66-1.25) mg/dL Glucose (74-99) mg/dL POC Glucose (mg/dL) 221 H 281 H (75-99) mg/dL Phosphorus (2.5-4.5) mg/dL Microbiology - Last 24 Hours (Table) 02/19/18 23:29 Blood Culture - Preliminary Blood No Growth after 72 hours 02/20/18 07:55 Gram Stain - Final Sputum Sputum Culture - Final Assessment and Plan Plan: Assessment and Plan -Acute hypoxic respiratory failure: Secondary to congestive heart failure chronic diastolic dysfunction with acute exacerbation patient was started on high-dose of Lasix. Continuing with the ventilatory support, diurese well improved creatinine with Lasix. Improving -possible seizure secondary to low glu , neurology team is following the pt , on depakote and level checked as per neuro team recommendation -acute on chronic renal failure , f/u with nephrology -metabolic encephalopathy , possibly secondary to all above -Ventilator dependent respiratory failure -Acute renal failure: Believed to be secondary to cardiorenal syndrome improved with Lasix -Hyperkalemia secondary to acute renal failure and chronic kidney disease, treatment as mentioned above with albuterol and Kayexlate, improved now and nephrology is following the patient -Chronic kidney disease stage IV -Hyperkalemia secondary to acute renal failure -Anemia of of chronic kidney disease -Peripheral vascular disease -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 -Hypotension is possibly secondary to sedation antidepressive medications will be held and restarted as needed. Hyperlipidemia -Episode of seizure believed to be secondary to hypoglycemia and encephalopathy EEG showed diffuse slowing. patient has metabolic and toxic encephalopathy DVT and GI px. pt is on heparin and protonix prognosis is guarded
[2018-02-23] MEDS: THIAMINE 100 MG/ML 2 ML VIAL IVP SCH (15:15)
[2018-02-23 15:38] LABS: Glucose,Whole Blood 230 mg/dL (75-99)
--- NOTE | 2018-02-23 16:17 | CT ---
EXAMINATION TYPE: CT brain wo con DATE OF EXAM: 02/23/2018 COMPARISON: 02/20/2018 HISTORY: 67-year-old male Unresponsive. TECHNIQUE: Examination was done in axial plane without intravenous contrast. Coronal and sagittal r econstructions performed. CT DLP: 818.1 mGycm Automated exposure control for dose reduction was used. FINDINGS: There is no evidence of acute intracranial hemorrhage, acute ischemic changes, mass, mass-effect, or extra-axial fluid collection. There is no effacement of cerebral sulci or basal subarachnoid cister ns. There is no hydrocephalus. There is no midline shift. Kennedy-white matter distinction is preserv ed. Mild generalized supratentorial volume loss. Old blowout fracture of the right orbital floor. Patient gaze is divergent suggesting underlying cent ral dizziness. Mastoid air cells are well pneumatized. Residual mild mucosal thickening within the ri ght ethmoid air cells. IMPRESSION: Mild generalized atrophy. Stable exam without acute intracranial abnormality seen. Old blowout fractu re of the right orbital floor.
--- NOTE | 2018-02-23 16:48 | P.PN ---
Subjective Progress Note Date: 02/23/18 Patient is a 67-year-old -[place] male who is being followed by the neurology service for possible seizure. Patient was brought to [facility] emergency room with shortness of breath. He was found to have significant pulmonary edema. Patient does have stage IV chronic kidney disease. Patient was being treated in the emergency room when one of the nurses noted patient to be unresponsive. Patient had questionable jerking activity. Patient had significant hypoglycemia in the 20s. He was given D50, intubated and sedated. Patient is currently in the ICU. Computed tomography scan of the brain was done which showed no acute abnormality. Computed tomography scan did show evidence of mild generalized atrophy. Patient was noted to have some rhythmic jerking. Patient was taken off propofol and had an EEG done. EEG showed generalized slowing of the background rhythm. EEG also showed significant triphasic waves which is commonly seen in hepatic pathology. Myoclonic activity was described. Patient was started on Depakote 500 mg every 12 hours IV. Staff reports no further jerking movements since starting Depakote. Patient remains sedated with propofol and on mechanical ventilation. 02/22/2018 Patient is a 67-year-old -[place] male is being followed by the neurology service for seizures. Patient has a history of stage for chronic kidney disease. Patient was more short of breath at home and came to the emergency room was found have pulmonary edema. Patient in the ICU intubated on mechanical ventilation. Staff had noticed patient to have myoclonic jerking. EEG showed significant triphasic waves which is commonly seen in hepatic pathology. Patient was started on Depakote 500 mg IV every 12 hours. No further myoclonic jerking reported. Patient has been off of IV sedation for approximately 7 hours now and he continues to be unresponsive. At the time of my evaluation, patient continues to be intubated on mechanical ventilation without evidence of response. 02/23/2018 Patient is a 67-year-old -[place] male who is being followed by the neurology service for seizures. Patient remains in the ICU on mechanical ventilation. Patient continues to be unresponsive. Patient had low Depakote level yesterday and Depakote dosing was increased. Patient has been off IV sedation for over 24 hours and continues to be unresponsive. Computed tomography scan was done which showed no acute process. Patient has further blood work ordered to evaluate for possible contributing etiology. At the time of my evaluation, patient continues to be unresponsive in the ICU, intubated and on mechanical ventilation. Objective - Vital Signs Vital signs: Vital Signs Temp 98.7 F 02/23/18 12:00 Pulse 91 02/23/18 15:27 Resp 15 02/23/18 13:00 BP 171/79 02/23/18 07:00 Pulse Ox 97 02/23/18 13:00 Intake & Output 02/22/18 02/23/18 02/23/18 18:59 06:59 18:59 Intake Total 452.725 186 648 Output Total 3295 1530 900 Balance -2842.275 -1344 -252 Weight 84.3 kg 78.7 kg Intake: IV 239 86 168 Pressure bag 39 36 18 Sodium Ferric Gluconat- 100 100 Sucrose 125 mg In Sodium Chloride 0.9% 100 ml @ 100 mls/hr IVPB DAILY [facility] Rx#:[id number] Valproate Sodium 500 mg 100 50 50 In Sodium Chloride 0.9% 50 ml @ 50 mls/hr IVPB Q12HR [facility] Rx#:[id number] Intake, IV Titration 83.725 Amount Propofol 1,000 mg In 83.725 Empty Bag 1 bag @ Titrate IV .Q0M [facility] Rx#: [id number] Tube Feeding 100 100 420 Other 30 60 Output: Urine 3295 1530 900 Other: Voiding Method Indwelling Catheter Indwelling Catheter Indwelling Catheter ABP, PAP, CO, CI - Last Documented Arterial Blood Pressure 159/65 - Labs CBC & Chem 7: 02/23/18 04:15 02/23/18 04:15 Labs: Abnormal Lab Results - Last 24 Hours (Table) 02/22/18 02/23/18 02/23/18 Range/Units 19:50 00:13 03:10 RBC (4.30-5.90) m/uL Hgb (13.0-17.5) gm/dL Hct (39.0-53.0) % Neutrophils # (1.3-7.7) k/uL Lymphocytes # (1.0-4.8) k/uL ABG pH (7.35-7.45) ABG pO2 (83-108) mmHg ABG HCO3 (21-25) mmol/L ABG Total CO2 (19-24) mmol/L ABG O2 Saturation (94-97) % BUN (9-20) mg/dL Creatinine (0.66-1.25) mg/dL Glucose (74-99) mg/dL POC Glucose (mg/dL) 162 H 190 H 181 H (75-99) mg/dL Phosphorus (2.5-4.5) mg/dL 02/23/18 02/23/18 02/23/18 Range/Units 04:15 04:15 07:24 RBC 2.88 L (4.30-5.90) m/uL Hgb 8.3 L (13.0-17.5) gm/dL Hct 26.0 L (39.0-53.0) % Neutrophils # 8.7 H (1.3-7.7) k/uL Lymphocytes # 0.6 L (1.0-4.8) k/uL ABG pH 7.46 H (7.35-7.45) ABG pO2 126 H (83-108) mmHg ABG HCO3 29 H (21-25) mmol/L ABG Total CO2 30 H (19-24) mmol/L ABG O2 Saturation 99.6 H (94-97) % BUN 107 H* (9-20) mg/dL Creatinine 5.99 H (0.66-1.25) mg/dL Glucose 131 H (74-99) mg/dL POC Glucose (mg/dL) (75-99) mg/dL Phosphorus 8.7 H (2.5-4.5) mg/dL 02/23/18 02/23/18 02/23/18 Range/Units 08:20 12:01 15:18 RBC (4.30-5.90) m/uL Hgb (13.0-17.5) gm/dL Hct (39.0-53.0) % Neutrophils # (1.3-7.7) k/uL Lymphocytes # (1.0-4.8) k/uL ABG pH (7.35-7.45) ABG pO2 (83-108) mmHg ABG HCO3 (21-25) mmol/L ABG Total CO2 (19-24) mmol/L ABG O2 Saturation (94-97) % BUN (9-20) mg/dL Creatinine (0.66-1.25) mg/dL Glucose (74-99) mg/dL POC Glucose (mg/dL) 221 H 281 H 230 H (75-99) mg/dL Phosphorus (2.5-4.5) mg/dL Microbiology - Last 24 Hours (Table) 02/19/18 23:29 Blood Culture - Preliminary Blood No Growth after 72 hours Assessment and Plan Plan: Impression: 1. Episode of altered consciousness 2. Possible seizures/myoclonic jerking 3. Chronic renal failure 4. Respiratory failure 5. Pulmonary edema Recommendation: Patient may have had initial seizure due to severe hypoglycemia , however, patient continued to have rhythmic jerking and was started on Depakote. Patient continues to be unresponsive which may be consistent with hypoxic encephalopathy. Patient also has chronic kidney disease stage IV which may also be contributing to his encephalopathy. EEG showed triphasic waves consistent with hepatic pathology. I will repeat an EEG 02/24/2018. Continue Depakote 1000 mg IV every 12 hours. Repeat Depakote level in the a.m. As mentioned above, initial and follow-up computed tomography scan of the brain showed no acute findings. Patient has been off of sedation over 24 hours and remains unresponsive. Pulmonary and nephrology are following the patient. Continue current ICU management and treatment. I will continue to follow with you. Further recommendations to follow. I performed an examination of the patient and discussed the management with the DITTO MACHINE OPERATOR. I have reviewed the DITTO MACHINE OPERATOR notes and agree with the findings and plan of care.
[2018-02-23 20:13] LABS: Glucose,Whole Blood 221 mg/dL (75-99)
[2018-02-23] MEDS: ATORVASTATIN 10 MG TAB PO SCH (21:07)
[2018-02-24 00:09] LABS: Glucose,Whole Blood 176 mg/dL (75-99)
[2018-02-24] MEDS: HEPARIN SODIUM,PORCINE 5,000 UNIT/ML 1 ML VIAL SQ SCH ×4 (00:11→23:48)
[2018-02-24] MEDS: INSULIN ASPART 100 UNIT/ML 1 ML 10 ML VIAL SQ SCH ×7 (00:11→23:48)
[2018-02-24] MEDS: hydrALAZINE HCL 20 MG/ML 1 ML VIAL IVP PRN ×2 (02:18→08:56)
[2018-02-24] MEDS: IPRATROPIUM-ALBUTEROL 3 ML NEB INHALATION SCH ×5 (03:34→20:41)
[2018-02-24 04:42] LABS: Glucose,Whole Blood 175 mg/dL (75-99)
[2018-02-24 05:06] LABS: Basophils % (A) 0 %; Eosinophils % (A) 0 %; HCT 24.5 % (39.0-53.0); HGB 7.8 gm/dL (13.0-17.5); Hypochromasia Slight; Lymphocytes # (A) 0.6 k/uL (1.0-4.8); Lymphocytes % (A) 5 %; MCH 28.9 pg (25.0-35.0); MCV 90.3 fL (80.0-100.0); Mean Platelet Volume 7.7; Monocytes # (A) 0.5 k/uL (0-1.0); Monocytes % (A) 5 %; Neutrophils % (A) 89 %; Platelet Count 326 k/uL (150-450); RBC 2.71 m/uL (4.30-5.90); RDW 14.1 % (11.5-15.5); WBC 11.2 k/uL (3.8-10.6)
[2018-02-24 05:16] LABS: ABG Base Excess 6.4 mmol/L; ABG HCO3 30 mmol/L (21-25); ABG Oxygen Saturation 98.1 % (94-97); ABG PCO2 40 mmHg (35-45); ABG PH 7.48 (7.35-7.45); ABG PO2 89 mmHg (83-108); ABG TCO2 31 mmol/L (19-24)
[2018-02-24 05:16] LABS: Calcium 9.1 mg/dL (8.4-10.2); Magnesium 2.3 mg/dL (1.6-2.3); Phosphorus 7.6 mg/dL (2.5-4.5); Potassium 4.3 mmol/L (3.5-5.1)
[2018-02-24 05:21] LABS: Valproic Acid (Depakene) 33.8 ug/mL
[2018-02-24 06:36] LABS: Appearance,Urine Clear (Clear); Bacteria,Urine Rare /hpf; Bilirubin,Urine Negative (Negative); Blood,Urine Negative (Negative); Color,Urine Yellow; Glucose,Urine (UA) Trace (Negative); Ketones,Urine Negative (Negative); Leukocyte Esterase,Urine Negative (Negative); Mucus,Urine Rare /hpf; Nitrite,Urine Negative (Negative); Protein,Urine 2+ (Negative); RBC,Urine 8 /hpf (0-5); Specific Gravity,Urine 1.013 (1.001-1.035); Urobilinogen,Urine <2.0 mg/dL (<2.0); WBC,Urine 1 /hpf (0-5)
[2018-02-24] MEDS: CALCIUM ACETATE 667 MG CAP PO SCH ×3 (06:45→16:55)
[2018-02-24] MEDS: LABETALOL 200 MG TAB PO SCH ×3 (06:45→21:12)
[2018-02-24 07:45] LABS: Glucose,Whole Blood 213 mg/dL (75-99)
--- NOTE | 2018-02-24 08:26 | XR ---
EXAMINATION TYPE: XR chest 1V portable DATE OF EXAM: 02/24/2018 COMPARISON: Prior chest x-ray 02/23/[address] 02/20/2018 HISTORY: Intubated TECHNIQUE: Single frontal view of the chest is obtained. FINDINGS: Endotracheal tube, NG tube, right subclavian central venous catheter, overlying cardiac le ads are noted. NG tube shows the side port near the level of the distal thoracic esophagus. No eviden t pneumothorax. 5 basilar density persists, there may be some interval improvement in visualization o f the right hemidiaphragm. Heart size is stable. Interstitium is increased. No evident pneumothorax. IMPRESSION: There may be basilar atelectasis, edema or pneumonia and associated effusions, correlate for congestive heart failure, volume overload, ARDS. Side-port of the NG tube is likely within the d istal thoracic esophagus, probable hiatal hernia. Heart size may be accentuated by rotation.
--- NOTE | 2018-02-24 08:47 | P.PN ---
Subjective Patient is seen in follow-up for acute kidney injury on chronic kidney disease. Patient has chronic kidney disease stage IV secondary to biopsy-proven diabetic kidney disease with severe chronicity. His baseline creatinine has been in the range of 4-5. Creatinine was 7.65 on admission and is 5.91 today. Patient was noted to have volume overload with generalized anasarca and is currently maintained on Lasix 80 mg IV two times daily. He is nonoliguric. Currently intubated. Patient is not responding much to stimuli and there is concern for anoxic injury. Vital signs are stable. General: The patient appeared well nourished and normally developed. Intubated. HEENT: Head exam is unremarkable. Neck is without jugular venous distension. LUNGS: Breath sounds decreased. HEART: Rate and Rhythm are regular. First and second heart sounds normal. No murmurs, rubs or gallops. ABDOMEN: Abdominal exam reveals normal bowel sounds. Non-tender and non- distended. No evidence of peritonitis. EXTREMITITES: No clubbing, cyanosis, or edema. Right BKA noted. Objective - Vital Signs Vital signs: Vital Signs Temp 101.7 F H 02/24/18 04:30 Pulse 90 02/24/18 08:08 Resp 16 02/24/18 07:00 BP 155/82 02/24/18 03:30 Pulse Ox 98 02/24/18 07:00 Intake & Output 02/23/18 02/24/18 02/24/18 18:59 06:59 18:59 Intake Total 1082 806 45 Output Total 1345 735 50 Balance -263 71 -5 Intake: IV 236 83 3 Pressure bag 36 33 3 Sodium Ferric Gluconat- 100 Sucrose 125 mg In Sodium Chloride 0.9% 100 ml @ 100 mls/hr IVPB DAILY [facility] Rx#:[id number] Valproate Sodium 500 mg 100 In Sodium Chloride 0.9% 50 ml @ 50 mls/hr IVPB Q12HR [facility] Rx#:[id number] Valproate Sodium 500 mg 50 In Sodium Chloride 0.9% 50 ml @ 50 mls/hr IVPB TID [facility] Rx#:[id number] Tube Feeding 756 588 42 Other 90 135 Output: Urine 1345 735 50 Other: Voiding Method Indwelling Catheter Indwelling Catheter # Bowel Movements 1 ABP, PAP, CO, CI - Last Documented Arterial Blood Pressure 166/62 - Labs CBC & Chem 7: 02/24/18 04:40 02/24/18 04:40 Labs: Abnormal Lab Results - Last 24 Hours (Table) 02/23/18 02/23/18 02/23/18 Range/Units 12:01 15:18 20:11 WBC (3.8-10.6) k/uL RBC (4.30-5.90) m/uL Hgb (13.0-17.5) gm/dL Hct (39.0-53.0) % Neutrophils # (1.3-7.7) k/uL Lymphocytes # (1.0-4.8) k/uL ABG pH (7.35-7.45) ABG HCO3 (21-25) mmol/L ABG Total CO2 (19-24) mmol/L ABG O2 Saturation (94-97) % BUN (9-20) mg/dL Creatinine (0.66-1.25) mg/dL Glucose (74-99) mg/dL POC Glucose (mg/dL) 281 H 230 H 221 H (75-99) mg/dL Phosphorus (2.5-4.5) mg/dL Urine Protein (Negative) Urine Glucose (UA) (Negative) Urine RBC (0-5) /hpf Urine Bacteria (None) /hpf Urine Mucus (None) /hpf 02/24/18 02/24/18 02/24/18 Range/Units 00:07 04:39 04:40 WBC 11.2 H (3.8-10.6) k/uL RBC 2.71 L (4.30-5.90) m/uL Hgb 7.8 L (13.0-17.5) gm/dL Hct 24.5 L (39.0-53.0) % Neutrophils # 10.0 H (1.3-7.7) k/uL Lymphocytes # 0.6 L (1.0-4.8) k/uL ABG pH (7.35-7.45) ABG HCO3 (21-25) mmol/L ABG Total CO2 (19-24) mmol/L ABG O2 Saturation (94-97) % BUN (9-20) mg/dL Creatinine (0.66-1.25) mg/dL Glucose (74-99) mg/dL POC Glucose (mg/dL) 176 H 175 H (75-99) mg/dL Phosphorus (2.5-4.5) mg/dL Urine Protein (Negative) Urine Glucose (UA) (Negative) Urine RBC (0-5) /hpf Urine Bacteria (None) /hpf Urine Mucus (None) /hpf 02/24/18 02/24/18 02/24/18 Range/Units 04:40 05:13 06:07 WBC (3.8-10.6) k/uL RBC (4.30-5.90) m/uL Hgb (13.0-17.5) gm/dL Hct (39.0-53.0) % Neutrophils # (1.3-7.7) k/uL Lymphocytes # (1.0-4.8) k/uL ABG pH 7.48 H (7.35-7.45) ABG HCO3 30 H (21-25) mmol/L ABG Total CO2 31 H (19-24) mmol/L ABG O2 Saturation 98.1 H (94-97) % BUN 106 H* (9-20) mg/dL Creatinine 5.91 H (0.66-1.25) mg/dL Glucose 168 H (74-99) mg/dL POC Glucose (mg/dL) (75-99) mg/dL Phosphorus 7.6 H (2.5-4.5) mg/dL Urine Protein 2+ H (Negative) Urine Glucose (UA) Trace H (Negative) Urine RBC 8 H (0-5) /hpf Urine Bacteria Rare H (None) /hpf Urine Mucus Rare H (None) /hpf 02/24/18 Range/Units 07:35 WBC (3.8-10.6) k/uL RBC (4.30-5.90) m/uL Hgb (13.0-17.5) gm/dL Hct (39.0-53.0) % Neutrophils # (1.3-7.7) k/uL Lymphocytes # (1.0-4.8) k/uL ABG pH (7.35-7.45) ABG HCO3 (21-25) mmol/L ABG Total CO2 (19-24) mmol/L ABG O2 Saturation (94-97) % BUN (9-20) mg/dL Creatinine (0.66-1.25) mg/dL Glucose (74-99) mg/dL POC Glucose (mg/dL) 213 H (75-99) mg/dL Phosphorus (2.5-4.5) mg/dL Urine Protein (Negative) Urine Glucose (UA) (Negative) Urine RBC (0-5) /hpf Urine Bacteria (None) /hpf Urine Mucus (None) /hpf Microbiology - Last 24 Hours (Table) 02/19/18 23:29 Blood Culture - Preliminary Blood No Growth after 72 hours Assessment and Plan Plan: Assessment: 1. Acute kidney injury secondary to ATN secondary to cardiorenal syndrome. Creatinine 7.65 on admission and is 5.91 this morning. 2. Chronic kidney disease stage IV with baseline creatinine in the range of 4- 5. Etiology is biopsy proven diabetic kidney disease. He is noted to have severe chronicity. 3. Hyperkalemia secondary to acute kidney injury. Improved with medical management. 4. Insulin-dependent diabetes mellitus. 5. Hypertension with chronic kidney disease. 5. Volume overload. Improving. 6. Diastolic CHF. 7. Acute hypoxic respiratory failure currently intubated. 8. Anemia of chronic kidney disease. Iron deficiency noted. 9. History of hepatitis C. He was to follow-up with GI as outpatient. 10. Hyperphosphatemia secondary to acute kidney injury maintained on PhosLo. 11. Seizure which appears to be due to hypoglycemia. Neurology following. Concern for anoxia. Plan: Maintain Lasix 80 mg IV twice daily. Avoid nephrotoxins. Strict I's and O's. Decreased dose of Neurontin to 100 mg 3 times daily. Ferrlecit 125 mg IV daily for 3 days. Third dose today. Wean FiO2. Continue to monitor renal function and urine output. Will assess for need for renal replacement therapy on a day-to-day basis. Case discussed with fireman.
[2018-02-24 08:51] LABS: Glucose,Whole Blood 207 mg/dL (75-99)
[2018-02-24] MEDS: VALPROATE SODIUM 500 MG in SODIUM CHLORIDE 0.9% 50 ML IVPB SCH (09:00)
[2018-02-24] MEDS: FUROSEMIDE 10 MG/ML 10 ML VIAL IV SCH ×2 (09:04→21:13)
[2018-02-24] MEDS: PANTOPRAZOLE 40 MG/10 ML VIAL IVP SCH (09:04)
[2018-02-24] MEDS: GABAPENTIN 100 MG CAP PO SCH ×3 (09:04→21:12)
[2018-02-24] MEDS: CHLORHEXIDINE GLUCONATE 15 ML CUP MUCOUS MEM SCH ×2 (09:04→21:12)
[2018-02-24] MEDS: amLODIPine 10 MG TAB PO SCH (09:04)
[2018-02-24] MEDS: TAMSULOSIN 0.4 MG CAP.ER.24H PO SCH (09:05)
[2018-02-24] MEDS: SODIUM BICARBONATE TAB 650 MG TAB PO SCH (09:05)
[2018-02-24] MEDS: SODIUM FERRIC GLUCONAT-SUCROSE 125 MG in SODIUM CHLORIDE 0.9% 100 ML IVPB SCH (09:17)
[2018-02-24] MEDS: THIAMINE 100 MG/ML 2 ML VIAL IVP SCH (09:18)
--- NOTE | 2018-02-24 10:02 | P.PN ---
Subjective Progress Note Date: 02/24/18 Principal diagnosis: Renal failure, respiratory failure, seizure, profound anoxic/metabolic encephalopathy. Progress note dated 02/24/2018 This is a 67-year-old male with a history of renal failure respiratory failure seizure disorder and significant anoxic/metabolic encephalopathy. The patient was admitted on the and intubated on the . He has not been on any sedation for more than 2 days. Unfortunately, the patient's mental status is extremely poor. He does not respond well to deep pain or any other stimuli for that matter. He does not have a gag reflex. His pupillary reflexes are very sluggish. He has been seen by neurology. A CT of the brain has been done 2. Also, the patient will have 2 EEGs. Currently, the patient is a full code. CODE STATUS does need to be addressed. The patient is on the ventilator. He is on the volume assist control mode, rate of 14, tidal volume 500, FiO2 35% and PEEP of 5. Blood gases are reasonable with a PaO2 of 89 a PaCO2 of 40 and a pH of 7.48. For blood pressure control, the patient's on labetalol, Norvasc, hydralazine, and Catapres patch. The chest x-ray shows bilateral effusions. Microbiology is negative. I did ask the nurse to call the family to discuss CODE STATUS. If they want continued full care, the patient should have a early tracheostomy and PEG tube placement. If not, terminal weaning would be appropriate in my opinion given his poor mental status. Objective - Vital Signs Vital signs: Vital Signs Temp 101.7 F H 02/24/18 04:30 Pulse 90 02/24/18 08:08 Resp 16 02/24/18 07:00 BP 155/82 02/24/18 03:30 Pulse Ox 98 02/24/18 07:00 Intake & Output 02/23/18 02/24/18 02/24/18 18:59 06:59 18:59 Intake Total 1082 806 45 Output Total 1345 735 50 Balance -263 71 -5 Intake: IV 236 83 3 Pressure bag 36 33 3 Sodium Ferric Gluconat- 100 Sucrose 125 mg In Sodium Chloride 0.9% 100 ml @ 100 mls/hr IVPB DAILY [facility] Rx#:[id number] Valproate Sodium 500 mg 100 In Sodium Chloride 0.9% 50 ml @ 50 mls/hr IVPB Q12HR [facility] Rx#:[id number] Valproate Sodium 500 mg 50 In Sodium Chloride 0.9% 50 ml @ 50 mls/hr IVPB TID [facility] Rx#:[id number] Tube Feeding 756 588 42 Other 90 135 Output: Urine 1345 735 50 Other: Voiding Method Indwelling Catheter Indwelling Catheter # Bowel Movements 1 ABP, PAP, CO, CI - Last Documented Arterial Blood Pressure 166/62 - Exam No acute distress, with an oral endotracheal tube and NG tube in place. HEENT examination is grossly unremarkable. Mucous membranes are moist. Neck supple. Full range of motion. No adenopathy thyromegaly or neck vein distention. Cardiovascular examination reveals regular rhythm rate. S1-S2 normal. No S3 or S4. No discernible murmur noted. Heart sounds are distant. Lungs reveal bilateral rhonchi and crackles. No wheezes. Breath sounds equal bilaterally. Abdomen soft bowel sounds are heard. No masses or tenderness. Extremities are intact. No cyanosis clubbing or edema. Skin is without rash or lesion. Neurologic examination is difficult to assess. The patient does not have a gag. Doll's eyes are difficult to determine. The patient does have an occasional triggering of the ventilator. Pupillary reflexes are sluggish. No response to pain or verbal stimuli. - Labs CBC & Chem 7: 02/24/18 04:40 02/24/18 04:40 Labs: Abnormal Lab Results - Last 24 Hours (Table) 02/23/18 02/23/18 02/23/18 Range/Units 12:01 15:18 20:11 WBC (3.8-10.6) k/uL RBC (4.30-5.90) m/uL Hgb (13.0-17.5) gm/dL Hct (39.0-53.0) % Neutrophils # (1.3-7.7) k/uL Lymphocytes # (1.0-4.8) k/uL ABG pH (7.35-7.45) ABG HCO3 (21-25) mmol/L ABG Total CO2 (19-24) mmol/L ABG O2 Saturation (94-97) % BUN (9-20) mg/dL Creatinine (0.66-1.25) mg/dL Glucose (74-99) mg/dL POC Glucose (mg/dL) 281 H 230 H 221 H (75-99) mg/dL Phosphorus (2.5-4.5) mg/dL Urine Protein (Negative) Urine Glucose (UA) (Negative) Urine RBC (0-5) /hpf Urine Bacteria (None) /hpf Urine Mucus (None) /hpf 02/24/18 02/24/18 02/24/18 Range/Units 00:07 04:39 04:40 WBC 11.2 H (3.8-10.6) k/uL RBC 2.71 L (4.30-5.90) m/uL Hgb 7.8 L (13.0-17.5) gm/dL Hct 24.5 L (39.0-53.0) % Neutrophils # 10.0 H (1.3-7.7) k/uL Lymphocytes # 0.6 L (1.0-4.8) k/uL ABG pH (7.35-7.45) ABG HCO3 (21-25) mmol/L ABG Total CO2 (19-24) mmol/L ABG O2 Saturation (94-97) % BUN (9-20) mg/dL Creatinine (0.66-1.25) mg/dL Glucose (74-99) mg/dL POC Glucose (mg/dL) 176 H 175 H (75-99) mg/dL Phosphorus (2.5-4.5) mg/dL Urine Protein (Negative) Urine Glucose (UA) (Negative) Urine RBC (0-5) /hpf Urine Bacteria (None) /hpf Urine Mucus (None) /hpf 02/24/18 02/24/18 02/24/18 Range/Units 04:40 05:13 06:07 WBC (3.8-10.6) k/uL RBC (4.30-5.90) m/uL Hgb (13.0-17.5) gm/dL Hct (39.0-53.0) % Neutrophils # (1.3-7.7) k/uL Lymphocytes # (1.0-4.8) k/uL ABG pH 7.48 H (7.35-7.45) ABG HCO3 30 H (21-25) mmol/L ABG Total CO2 31 H (19-24) mmol/L ABG O2 Saturation 98.1 H (94-97) % BUN 106 H* (9-20) mg/dL Creatinine 5.91 H (0.66-1.25) mg/dL Glucose 168 H (74-99) mg/dL POC Glucose (mg/dL) (75-99) mg/dL Phosphorus 7.6 H (2.5-4.5) mg/dL Urine Protein 2+ H (Negative) Urine Glucose (UA) Trace H (Negative) Urine RBC 8 H (0-5) /hpf Urine Bacteria Rare H (None) /hpf Urine Mucus Rare H (None) /hpf 02/24/18 02/24/18 Range/Units 07:35 08:49 WBC (3.8-10.6) k/uL RBC (4.30-5.90) m/uL Hgb (13.0-17.5) gm/dL Hct (39.0-53.0) % Neutrophils # (1.3-7.7) k/uL Lymphocytes # (1.0-4.8) k/uL ABG pH (7.35-7.45) ABG HCO3 (21-25) mmol/L ABG Total CO2 (19-24) mmol/L ABG O2 Saturation (94-97) % BUN (9-20) mg/dL Creatinine (0.66-1.25) mg/dL Glucose (74-99) mg/dL POC Glucose (mg/dL) 213 H 207 H (75-99) mg/dL Phosphorus (2.5-4.5) mg/dL Urine Protein (Negative) Urine Glucose (UA) (Negative) Urine RBC (0-5) /hpf Urine Bacteria (None) /hpf Urine Mucus (None) /hpf Microbiology - Last 24 Hours (Table) 02/19/18 23:29 Blood Culture - Preliminary Blood No Growth after 72 hours Assessment and Plan Assessment: Assessment Acute pulmonary edema with hypoxemic respiratory failure secondary to diastolic dysfunction Intubation with mechanical ventilation on February 20 for respiratory failure Profound hypoglycemia on presentation Significant anoxic/metabolic encephalopathy. 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 History of hepatitis C infection History of chronic liver disease History of gout History of deep venous thrombosis History of chronic back pain Remote history of IV drug abuse History of hypertensive urgency Stage V chronic kidney disease Plan: Plan dated 02/24/2018 CODE STATUS will have to be addressed in this individual. The patient's mental status is very poor as mentioned above. If the family wants to continue with life support, the patient will need an early tracheostomy and PEG tube placement. The patient could then be sent to select specialty or some sort of chronic ventilator facility. In addition, if the patient does not want this, we might consider terminal weaning. CODE STATUS needs to be addressed so. Microbiology is negative. White count 11.2, hemoglobin 7.8, hematocrit 24.5, and platelet count is normal. In addition, sodium potassium chloride CO2 normal. Anion gap a bit high at 14. BUN and creatinine were 106 and 5.91. Closed his baseline and he has not required hemodialysis. Medications are reviewed. Chest x-ray shows bilateral small effusions. Again overall prognosis remains extremely poor. Medications are reviewed. Critical care time 33 minutes Time with Patient: Greater than 30
[2018-02-24] MEDS: cloNIDine 0.3 MG/24HR PATCH TRANSDERM SCH (10:18)
[2018-02-24 12:20] LABS: Glucose,Whole Blood 210 mg/dL (75-99)
[2018-02-24] MEDS: ACETAMINOPHEN TAB 325 MG TAB PO PRN (12:27)
[2018-02-24] MEDS ORDERED: hydrALAZINE HCL 20 MG/ML 1 ML VIAL IVP ONE (12:45)
--- NOTE | 2018-02-24 15:52 | EEG ---
ELECTROENCEPHALOGRAM REPORT DATE OF SERVICE: 02/24/2018 REASON FOR TESTING: Altered mental status and myoclonus. DESCRIPTION OF THE PROCEDURE: This EEG was performed using a 21-channel digital electroencephalograph, following international 10-20 system. CURRENT ANTI-EPILEPTIC MEDICATIONS: Depakote. DESCRIPTION OF THE RECORDING: From the beginning of the tracing, and with the patient's eyes closed, the background rhythm was mostly consisting of 5-6 Hz theta frequency in the posterior occipital leads. No obvious asymmetry is seen. Recurrent triphasic waves and occasional sharp waves are seen. Photic stimulation was performed with no driving response seen. No pathological waves were elicited. His EKG lead showed a regular rate and rhythm. INTERPRETATION: This EEG is abnormal due to the presence of generalized slowing of the background rhythm, mostly in the theta range. This is consistent with moderate encephalopathy. Significant triphasic waves are seen consistent with hepatic disease. Occasional sharp wave activity is also seen which is consistent with a reduced seizure threshold. No generalized epileptiform discharges were seen. Clinical correlation is recommended. YANET / DIRK: [id number] /
[2018-02-24] MEDS: VALPROATE SODIUM 750 MG in SODIUM CHLORIDE 0.9% 50 ML IVPB SCH ×2 (16:25→22:22)
[2018-02-24 16:29] LABS: Glucose,Whole Blood 242 mg/dL (75-99)
--- NOTE | 2018-02-24 16:44 | P.PN ---
Subjective Progress Note Date: 02/24/18 Patient is a 67-year-old -[place] male who is being followed by the neurology service for possible seizure. Patient was brought to [facility] emergency room with shortness of breath. He was found to have significant pulmonary edema. Patient does have stage IV chronic kidney disease. Patient was being treated in the emergency room when one of the nurses noted patient to be unresponsive. Patient had questionable jerking activity. Patient had significant hypoglycemia in the 20s. He was given D50, intubated and sedated. Patient is currently in the ICU. Computed tomography scan of the brain was done which showed no acute abnormality. Computed tomography scan did show evidence of mild generalized atrophy. Patient was noted to have some rhythmic jerking. Patient was taken off propofol and had an EEG done. EEG showed generalized slowing of the background rhythm. EEG also showed significant triphasic waves which is commonly seen in hepatic pathology. Myoclonic activity was described. Patient was started on Depakote 500 mg every 12 hours IV. Staff reports no further jerking movements since starting Depakote. Patient remains sedated with propofol and on mechanical ventilation. 02/22/2018 Patient is a 67-year-old -[place] male is being followed by the neurology service for seizures. Patient has a history of stage for chronic kidney disease. Patient was more short of breath at home and came to the emergency room was found have pulmonary edema. Patient in the ICU intubated on mechanical ventilation. Staff had noticed patient to have myoclonic jerking. EEG showed significant triphasic waves which is commonly seen in hepatic pathology. Patient was started on Depakote 500 mg IV every 12 hours. No further myoclonic jerking reported. Patient has been off of IV sedation for approximately 7 hours now and he continues to be unresponsive. At the time of my evaluation, patient continues to be intubated on mechanical ventilation without evidence of response. 02/23/2018 Patient is a 67-year-old -[place] male who is being followed by the neurology service for seizures. Patient remains in the ICU on mechanical ventilation. Patient continues to be unresponsive. Patient had low Depakote level yesterday and Depakote dosing was increased. Patient has been off IV sedation for over 24 hours and continues to be unresponsive. Computed tomography scan was done which showed no acute process. Patient has further blood work ordered to evaluate for possible contributing etiology. At the time of my evaluation, patient continues to be unresponsive in the ICU, intubated and on mechanical ventilation. 02/24/2018 Patient is a 67-year-old male who is being followed by the neurology service for seizures. Patient was seen today in the ICU where he is intubated and on mechanical ventilation. Patient continues to be unresponsive. He is unresponsive to deep pain. Patient's Depakote level is subtherapeutic at 33.8 today. EEG is abnormal and consistent with moderate encephalopathy. Patient's continues to have significant triphasic waves which are consistent with hepatic disease. Occasional sharp wave activity is also seen which is consistent with reduced seizure threshold. At the time of my evaluation, patient remains in the ICU and remains unresponsive. Sedation has been held for over 48 hours. No family at the bedside. Objective - Vital Signs Vital signs: Vital Signs Temp 99.9 F H 02/24/18 12:00 Pulse 80 02/24/18 16:22 Resp 16 02/24/18 14:00 BP 155/82 02/24/18 03:30 Pulse Ox 98 02/24/18 14:00 Intake & Output 02/23/18 02/24/18 02/24/18 18:59 06:59 18:59 Intake Total 1082 806 696 Output Total 1345 735 525 Balance -263 71 171 Weight 78.925 kg Intake: IV 236 83 174 Pressure bag 36 33 24 Sodium Ferric Gluconat- 100 100 Sucrose 125 mg In Sodium Chloride 0.9% 100 ml @ 100 mls/hr IVPB DAILY RAINE Rx#:[id number] Valproate Sodium 500 mg 100 In Sodium Chloride 0.9% 50 ml @ 50 mls/hr IVPB Q12HR RAINE Rx#:[id number] Valproate Sodium 500 mg 50 50 In Sodium Chloride 0.9% 50 ml @ 50 mls/hr IVPB TID RAINE Rx#:[id number] Tube Feeding 756 588 462 Other 90 135 60 Output: Urine 1345 735 525 Other: Voiding Method Indwelling Catheter Indwelling Catheter Indwelling Catheter # Bowel Movements 1 ABP, PAP, CO, CI - Last Documented Arterial Blood Pressure 149/58 - Exam PHYSICAL EXAM: GENERAL APPEARANCE: Patient is an -[place] male who appears to be in no acute distress. He is intubated on mechanical ventilation. HEENT: Normocephalic, atraumatic, no obvious facial asymmetry is seen. CARDIOVASCULAR: Regular rate and rhythm. ABDOMEN: Nontender, nondistended. EXTREMITIES: Show no edema or clubbing. NEUROLOGICAL EXAM: A meaningful neurological exam could not be performed due to patient unresponsiveness and mechanical ventilation. Patient has trace gag reflex. Patient has silent toes. No tremors or seizure-like activity noted. - Labs CBC & Chem 7: 02/24/18 04:40 02/24/18 04:40 Labs: Abnormal Lab Results - Last 24 Hours (Table) 02/23/18 02/24/18 02/24/18 Range/Units 20:11 00:07 04:39 WBC (3.8-10.6) k/uL RBC (4.30-5.90) m/uL Hgb (13.0-17.5) gm/dL Hct (39.0-53.0) % Neutrophils # (1.3-7.7) k/uL Lymphocytes # (1.0-4.8) k/uL ABG pH (7.35-7.45) ABG HCO3 (21-25) mmol/L ABG Total CO2 (19-24) mmol/L ABG O2 Saturation (94-97) % BUN (9-20) mg/dL Creatinine (0.66-1.25) mg/dL Glucose (74-99) mg/dL POC Glucose (mg/dL) 221 H 176 H 175 H (75-99) mg/dL Phosphorus (2.5-4.5) mg/dL Urine Protein (Negative) Urine Glucose (UA) (Negative) Urine RBC (0-5) /hpf Urine Bacteria (None) /hpf Urine Mucus (None) /hpf 02/24/18 02/24/18 02/24/18 Range/Units 04:40 04:40 05:13 WBC 11.2 H (3.8-10.6) k/uL RBC 2.71 L (4.30-5.90) m/uL Hgb 7.8 L (13.0-17.5) gm/dL Hct 24.5 L (39.0-53.0) % Neutrophils # 10.0 H (1.3-7.7) k/uL Lymphocytes # 0.6 L (1.0-4.8) k/uL ABG pH 7.48 H (7.35-7.45) ABG HCO3 30 H (21-25) mmol/L ABG Total CO2 31 H (19-24) mmol/L ABG O2 Saturation 98.1 H (94-97) % BUN 106 H* (9-20) mg/dL Creatinine 5.91 H (0.66-1.25) mg/dL Glucose 168 H (74-99) mg/dL POC Glucose (mg/dL) (75-99) mg/dL Phosphorus 7.6 H (2.5-4.5) mg/dL Urine Protein (Negative) Urine Glucose (UA) (Negative) Urine RBC (0-5) /hpf Urine Bacteria (None) /hpf Urine Mucus (None) /hpf 02/24/18 02/24/18 02/24/18 Range/Units 06:07 07:35 08:49 WBC (3.8-10.6) k/uL RBC (4.30-5.90) m/uL Hgb (13.0-17.5) gm/dL Hct (39.0-53.0) % Neutrophils # (1.3-7.7) k/uL Lymphocytes # (1.0-4.8) k/uL ABG pH (7.35-7.45) ABG HCO3 (21-25) mmol/L ABG Total CO2 (19-24) mmol/L ABG O2 Saturation (94-97) % BUN (9-20) mg/dL Creatinine (0.66-1.25) mg/dL Glucose (74-99) mg/dL POC Glucose (mg/dL) 213 H 207 H (75-99) mg/dL Phosphorus (2.5-4.5) mg/dL Urine Protein 2+ H (Negative) Urine Glucose (UA) Trace H (Negative) Urine RBC 8 H (0-5) /hpf Urine Bacteria Rare H (None) /hpf Urine Mucus Rare H (None) /hpf 02/24/18 02/24/18 Range/Units 12:06 15:59 WBC (3.8-10.6) k/uL RBC (4.30-5.90) m/uL Hgb (13.0-17.5) gm/dL Hct (39.0-53.0) % Neutrophils # (1.3-7.7) k/uL Lymphocytes # (1.0-4.8) k/uL ABG pH (7.35-7.45) ABG HCO3 (21-25) mmol/L ABG Total CO2 (19-24) mmol/L ABG O2 Saturation (94-97) % BUN (9-20) mg/dL Creatinine (0.66-1.25) mg/dL Glucose (74-99) mg/dL POC Glucose (mg/dL) 210 H 242 H (75-99) mg/dL Phosphorus (2.5-4.5) mg/dL Urine Protein (Negative) Urine Glucose (UA) (Negative) Urine RBC (0-5) /hpf Urine Bacteria (None) /hpf Urine Mucus (None) /hpf Microbiology - Last 24 Hours (Table) 02/24/18 03:05 Gram Stain - Preliminary Catheter Site Wound Culture - Preliminary 02/24/18 05:35 Gram Stain - Preliminary Sputum Sputum Culture - Preliminary 02/19/18 23:29 Blood Culture - Preliminary Blood No Growth after 96 hours 02/24/18 03:05 Anaerobic Culture - Preliminary Penis 02/24/18 06:07 Urine Culture - Preliminary Urine,Catheterized Assessment and Plan Plan: Impression: 1. Episode of altered consciousness 2. Possible seizures/myoclonic jerking 3. Chronic renal failure 4. Respiratory failure 5. Pulmonary edema Recommendation: Patient may have had initial seizure due to severe hypoglycemia , however, patient continued to have rhythmic jerking and was started on Depakote. Patient continues to be unresponsive which may be consistent with hypoxic encephalopathy or hypoglycemic encephalopathy. Patient also has chronic kidney disease stage IV which may also be contributing to his encephalopathy. EEG continues to show triphasic waves consistent with hepatic pathology. I will repeat an EEG 02/26/2018. I will increase to Depakote 750 mg IV 3 times a day. Repeat Depakote level in the a.m. As mentioned above, initial and follow-up computed tomography scan of the brain showed no acute findings. Patient has been off of sedation over 48 hours and remains unresponsive. Pulmonary and nephrology are following the patient. Possible trach and PEG in the near future. Continue current ICU management and treatment. I will continue to follow with you. Further recommendations to follow. I performed an examination of the patient and discussed the management with the REGISTERED MAIL CLERK. I have reviewed the REGISTERED MAIL CLERK notes and agree with the findings and plan of care.
--- NOTE | 2018-02-24 19:54 | P.PN ---
Subjective Patient is a 67-year-old -[place] male who is being followed by the neurology service for possible seizure. Patient was brought to [facility] emergency room with shortness of breath. He was found to have significant pulmonary edema. Patient does have stage IV chronic kidney disease. Patient was being treated in the emergency room when one of the nurses noted patient to be unresponsive. Patient had questionable jerking activity. Patient had significant hypoglycemia in the 20s. He was given D50, intubated and sedated. Patient is currently in the ICU. Computed tomography scan of the brain was done which showed no acute abnormality. Computed tomography scan did show evidence of mild generalized atrophy. Patient was noted to have some rhythmic jerking. Patient was taken off propofol and had an EEG done. EEG showed generalized slowing of the background rhythm. EEG also showed significant triphasic waves which is commonly seen in hepatic pathology. Myoclonic activity was described. Patient was started on Depakote 500 mg every 12 hours IV. Staff reports no further jerking movements since starting Depakote. Patient remains sedated with propofol and on mechanical ventilation. acute kidney injury on chronic kidney disease. Patient has chronic kidney disease stage IV secondary to biopsy-proven diabetic kidney disease with severe chronicity. His baseline creatinine has been in the range of 4-5. Creatinine was 7.65 on admission 02/23/2018 this is my first day taking care of the pt , pt is still on vent , he has been off sedation , however he is still not waking up as expected . pt could have metabolic encephalopathy , vs other . pt with acute on chronic Kidney disease stage IV. nephrology are following the case .Creatinine was 7.65 on admission and is 5.99 today. pt is been seen by neurology who recommended to repeat the EEG and result is pending.pt had subtherapeutic level and extra doses were provided for him yesterday EEG from 02/21: abnormal with significant triphasic waves which is commonly seen in hepatic encephalopahty pt still does not respond to pain stimuli. despite been off sedation since this morning. pupils are equal and reactive to light, meningeal signs were absent when i examined the pt this morning pt has h/o Hep C and B , we will check ammonia level and other work up like B12 ,thyroid function test, syphlis screen ,repeat CT of the head ,with neurology follow up. no fever , no leukocytosis 02/24/2018 no change from yesterday in his mental status from the first time a saw her , still unresponsive , neurologist team is following the pt and recommended repeat EEG. critical care input is appreciated . ammonia level and TSH were negative , repeat CT head is negative for acute process as well Objective - Vital Signs Vital signs: Vital Signs Temp 100.1 F H 02/24/18 19:00 Pulse 83 02/24/18 19:00 Resp 15 02/24/18 19:00 BP 155/82 02/24/18 03:30 Pulse Ox 97 02/24/18 19:00 Intake & Output 02/24/18 02/24/18 02/25/18 06:59 18:59 06:59 Intake Total 806 1082 45 Output Total 735 730 50 Balance 71 352 -5 Weight 78.925 kg Intake: IV 83 236 3 Pressure bag 33 36 3 Sodium Ferric Gluconat- 100 Sucrose 125 mg In Sodium Chloride 0.9% 100 ml @ 100 mls/hr IVPB DAILY RAINE Rx#:[id number] Valproate Sodium 500 mg 50 100 In Sodium Chloride 0.9% 50 ml @ 50 mls/hr IVPB TID RAINE Rx#:[id number] Tube Feeding 588 756 42 Other 135 90 Output: Urine 735 730 50 Other: Voiding Method Indwelling Catheter Indwelling Catheter # Bowel Movements 1 ABP, PAP, CO, CI - Last Documented Arterial Blood Pressure 158/63 - Exam -GENERAL: The patient is unresponsive , does not open eyes,intubated. not in any acute distress. Well developed, HEENT: Pupils are round and equally reacting to light. EOMI. No scleral icterus. No conjunctival pallor. Normocephalic, atraumatic. No pharyngeal erythema. No thyromegaly. CARDIOVASCULAR: S1 and S2 present. No murmurs, rubs, or gallops. -PULMONARY: Chest is clear to auscultation, no wheezing. Bilateral scattered crackles. ABDOMEN: Soft, nontender, nondistended, normoactive bowel sounds. No palpable organomegaly. MUSCULOSKELETAL: No joint swelling or deformity. EXTREMITIES: No cyanosis, clubbing, or pedal edema. -s/p right BKA -NEUROLOGICAL: unresponsive to verbal or painful stinuli, does not open eyes. SKIN: No rashes. - Labs CBC & Chem 7: 02/24/18 04:40 02/24/18 04:40 Labs: Abnormal Lab Results - Last 24 Hours (Table) 02/23/18 02/24/18 02/24/18 Range/Units 20:11 00:07 04:39 WBC (3.8-10.6) k/uL RBC (4.30-5.90) m/uL Hgb (13.0-17.5) gm/dL Hct (39.0-53.0) % Neutrophils # (1.3-7.7) k/uL Lymphocytes # (1.0-4.8) k/uL ABG pH (7.35-7.45) ABG HCO3 (21-25) mmol/L ABG Total CO2 (19-24) mmol/L ABG O2 Saturation (94-97) % BUN (9-20) mg/dL Creatinine (0.66-1.25) mg/dL Glucose (74-99) mg/dL POC Glucose (mg/dL) 221 H 176 H 175 H (75-99) mg/dL Phosphorus (2.5-4.5) mg/dL Urine Protein (Negative) Urine Glucose (UA) (Negative) Urine RBC (0-5) /hpf Urine Bacteria (None) /hpf Urine Mucus (None) /hpf 02/24/18 02/24/18 02/24/18 Range/Units 04:40 04:40 05:13 WBC 11.2 H (3.8-10.6) k/uL RBC 2.71 L (4.30-5.90) m/uL Hgb 7.8 L (13.0-17.5) gm/dL Hct 24.5 L (39.0-53.0) % Neutrophils # 10.0 H (1.3-7.7) k/uL Lymphocytes # 0.6 L (1.0-4.8) k/uL ABG pH 7.48 H (7.35-7.45) ABG HCO3 30 H (21-25) mmol/L ABG Total CO2 31 H (19-24) mmol/L ABG O2 Saturation 98.1 H (94-97) % BUN 106 H* (9-20) mg/dL Creatinine 5.91 H (0.66-1.25) mg/dL Glucose 168 H (74-99) mg/dL POC Glucose (mg/dL) (75-99) mg/dL Phosphorus 7.6 H (2.5-4.5) mg/dL Urine Protein (Negative) Urine Glucose (UA) (Negative) Urine RBC (0-5) /hpf Urine Bacteria (None) /hpf Urine Mucus (None) /hpf 02/24/18 02/24/18 02/24/18 Range/Units 06:07 07:35 08:49 WBC (3.8-10.6) k/uL RBC (4.30-5.90) m/uL Hgb (13.0-17.5) gm/dL Hct (39.0-53.0) % Neutrophils # (1.3-7.7) k/uL Lymphocytes # (1.0-4.8) k/uL ABG pH (7.35-7.45) ABG HCO3 (21-25) mmol/L ABG Total CO2 (19-24) mmol/L ABG O2 Saturation (94-97) % BUN (9-20) mg/dL Creatinine (0.66-1.25) mg/dL Glucose (74-99) mg/dL POC Glucose (mg/dL) 213 H 207 H (75-99) mg/dL Phosphorus (2.5-4.5) mg/dL Urine Protein 2+ H (Negative) Urine Glucose (UA) Trace H (Negative) Urine RBC 8 H (0-5) /hpf Urine Bacteria Rare H (None) /hpf Urine Mucus Rare H (None) /hpf 02/24/18 02/24/18 Range/Units 12:06 15:59 WBC (3.8-10.6) k/uL RBC (4.30-5.90) m/uL Hgb (13.0-17.5) gm/dL Hct (39.0-53.0) % Neutrophils # (1.3-7.7) k/uL Lymphocytes # (1.0-4.8) k/uL ABG pH (7.35-7.45) ABG HCO3 (21-25) mmol/L ABG Total CO2 (19-24) mmol/L ABG O2 Saturation (94-97) % BUN (9-20) mg/dL Creatinine (0.66-1.25) mg/dL Glucose (74-99) mg/dL POC Glucose (mg/dL) 210 H 242 H (75-99) mg/dL Phosphorus (2.5-4.5) mg/dL Urine Protein (Negative) Urine Glucose (UA) (Negative) Urine RBC (0-5) /hpf Urine Bacteria (None) /hpf Urine Mucus (None) /hpf Microbiology - Last 24 Hours (Table) 02/24/18 03:05 Gram Stain - Preliminary Catheter Site Wound Culture - Preliminary 02/24/18 05:35 Gram Stain - Preliminary Sputum Sputum Culture - Preliminary 02/19/18 23:29 Blood Culture - Preliminary Blood No Growth after 96 hours 02/24/18 03:05 Anaerobic Culture - Preliminary Penis 02/24/18 06:07 Urine Culture - Preliminary Urine,Catheterized Assessment and Plan Plan: Assessment and Plan -Acute hypoxic respiratory failure: Secondary to congestive heart failure chronic diastolic dysfunction with acute exacerbation patient was started on high-dose of Lasix. Continuing with the ventilatory support, diurese well improved creatinine with Lasix. Improving -possible seizure related to low glu , neurology team is following the pt , on depakote and level checked as per neuro team recommendation -acute on chronic renal failure , f/u with nephrology -metabolic encephalopathy , possibly secondary to all above -Ventilator dependent respiratory failure -Acute renal failure: Believed to be secondary to cardiorenal syndrome improved with Lasix -Hyperkalemia secondary to acute renal failure and chronic kidney disease, treatment as mentioned above with albuterol and Kayexlate, improved now and nephrology is following the patient -Chronic kidney disease stage IV -Hyperkalemia secondary to acute renal failure -Anemia of of chronic kidney disease -Peripheral vascular disease -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 -Hypotension is possibly secondary to sedation antidepressive medications will be held and restarted as needed. Hyperlipidemia -Episode of seizure believed to be secondary to hypoglycemia and encephalopathy EEG showed diffuse slowing. patient has metabolic and toxic encephalopathy DVT and GI px. pt is on heparin and protonix prognosis is guarded
[2018-02-24 20:03] LABS: Glucose,Whole Blood 249 mg/dL (75-99)
[2018-02-24] MEDS: ATORVASTATIN 10 MG TAB PO SCH (21:12)
[2018-02-24 23:44] LABS: Glucose,Whole Blood 232 mg/dL (75-99)
[2018-02-25] MEDS: hydrALAZINE HCL 20 MG/ML 1 ML VIAL IVP PRN (00:38)
[2018-02-25] MEDS: IPRATROPIUM-ALBUTEROL 3 ML NEB INHALATION SCH ×7 (00:58→23:44)
[2018-02-25 04:05] LABS: Glucose,Whole Blood 85 mg/dL (75-99)
[2018-02-25] MEDS: INSULIN ASPART 100 UNIT/ML 1 ML 10 ML VIAL SQ SCH ×5 (04:08→20:05)
[2018-02-25 05:10] LABS: Basophils % (A) 0 %; Eosinophils % (A) 0 %; HCT 24.8 % (39.0-53.0); HGB 7.8 gm/dL (13.0-17.5); Hypochromasia Slight; Lymphocytes # (A) 0.7 k/uL (1.0-4.8); Lymphocytes % (A) 5 %; MCHC 31.6 g/dL (31.0-37.0); MCV 91.7 fL (80.0-100.0); Mean Platelet Volume 7.7; Monocytes # (A) 0.7 k/uL (0-1.0); Monocytes % (A) 5 %; Neutrophils # (A) 13.4 k/uL (1.3-7.7); Neutrophils % (A) 89 %; Platelet Count 341 k/uL (150-450); RDW 14.2 % (11.5-15.5)
[2018-02-25 05:28] LABS: Calcium 9.2 mg/dL (8.4-10.2); Magnesium 2.5 mg/dL (1.6-2.3); Potassium 4.7 mmol/L (3.5-5.1)
[2018-02-25 05:32] LABS: ABG Base Excess 7.7 mmol/L; ABG HCO3 31 mmol/L (21-25); ABG Oxygen Saturation 98.2 % (94-97); ABG PCO2 44 mmHg (35-45); ABG PH 7.47 (7.35-7.45); ABG PO2 92 mmHg (83-108); ABG TCO2 33 mmol/L (19-24)
[2018-02-25 05:33] LABS: Valproic Acid (Depakene) 52.9 ug/mL
[2018-02-25] MEDS: CALCIUM ACETATE 667 MG CAP PO SCH ×3 (07:15→18:20)
--- NOTE | 2018-02-25 08:14 | P.PN ---
Subjective Progress Note Date: 02/25/18 Principal diagnosis: Renal failure, respiratory failure, seizure, profound anoxic/metabolic encephalopathy. Progress note dated 02/24/2018 This is a 67-year-old male with a history of renal failure respiratory failure seizure disorder and significant anoxic/metabolic encephalopathy. The patient was admitted on the and intubated on the . He has not been on any sedation for more than 2 days. Unfortunately, the patient's mental status is extremely poor. He does not respond well to deep pain or any other stimuli for that matter. He does not have a gag reflex. His pupillary reflexes are very sluggish. He has been seen by neurology. A CT of the brain has been done 2. Also, the patient will have 2 EEGs. Currently, the patient is a full code. CODE STATUS does need to be addressed. The patient is on the ventilator. He is on the volume assist control mode, rate of 14, tidal volume 500, FiO2 35% and PEEP of 5. Blood gases are reasonable with a PaO2 of 89 a PaCO2 of 40 and a pH of 7.48. For blood pressure control, the patient's on labetalol, Norvasc, hydralazine, and Catapres patch. The chest x-ray shows bilateral effusions. Microbiology is negative. I did ask the nurse to call the family to discuss CODE STATUS. If they want continued full care, the patient should have a early tracheostomy and PEG tube placement. If not, terminal weaning would be appropriate in my opinion given his poor mental status. Progress note dated 02/25/2018 This is a 67-year-old white male with history of renal failure, respiratory failure, seizure disorder, and significant anoxic/metabolic encephalopathy. He was admitted on the and intubated on the for respiratory failure. He has not been on any sedatives hypnotics narcotics and tranquilizers for more than 2 days. The patient's mental status is extremely poor. He has not responded to deep pain or verbal stimuli. Pupils were midpoint and sluggishly reactive. There is no gag reflex. No corneal reflex. He does occasionally trigger the ventilator. He's had a CAT scan of the brain 2 and 3 EEGs. I had a long discussion with the patient's sister yesterday. She is currently about making the patient a comfort measures and allowing him to be taken off life support. She apparently had to make a decision to amputate his leg and for that reason, the patient's sister the preferred to proceed with tracheostomy and PEG tube and a chronic ventilator facility as opposed to comfort measures. The patient is suffering from significant penile discharge. It's very green and yellow and purulent looking. I added Rocephin this morning. Cultures have been done and are pending. Prognosis is extremely poor. Currently, he is on the volume assist control mode, rate of 14, tidal volume 500, FiO2 35% and PEEP of 5. Arterial blood gases show a PaO2 of 92 a PaCO2 of 44 and a pH of 7.46. The patient's IV is saline at 20 mL an hour. He is getting tube feeds. Objective - Vital Signs Vital signs: Vital Signs Temp 98.7 F 02/25/18 04:00 Pulse 80 02/25/18 07:37 Resp 14 02/25/18 07:00 BP 155/82 02/24/18 03:30 Pulse Ox 99 02/25/18 07:00 Intake & Output 02/24/18 02/25/18 02/25/18 18:59 06:59 18:59 Intake Total 1082 1459 65 Output Total 730 335 25 Balance 352 1124 40 Weight 78.925 kg 78.8 kg Intake: IV 236 694 23 NS 620 20 Pressure bag 36 24 3 Sodium Ferric Gluconat- 100 Sucrose 125 mg In Sodium Chloride 0.9% 100 ml @ 100 mls/hr IVPB DAILY RAINE Rx#:[id number] Valproate Sodium 500 mg 100 50 In Sodium Chloride 0.9% 50 ml @ 50 mls/hr IVPB TID RAINE Rx#:[id number] Tube Feeding 756 630 42 Other 90 135 Output: Urine 730 335 25 Other: Voiding Method Indwelling Catheter Indwelling Catheter # Bowel Movements 1 ABP, PAP, CO, CI - Last Documented Arterial Blood Pressure 142/59 - Exam No acute distress, with an oral endotracheal tube and NG tube in place. No gag reflex. HEENT examination is grossly unremarkable. Mucous membranes are moist. Pupils midpoint and very sluggishly reactive. No corneal reflex. Neck supple. Full range of motion. No adenopathy thyromegaly or neck vein distention. Cardiovascular examination reveals regular rhythm rate. S1-S2 normal. No S3 or S4. No discernible murmur noted. Heart sounds are distant. Lungs reveal bilateral rhonchi and crackles. No wheezes. Breath sounds equal bilaterally. Breath sounds are diminished throughout. Abdomen soft bowel sounds are heard. No masses or tenderness. Extremities are intact. No cyanosis clubbing or edema. Skin is without rash or lesion. Neurologic examination is difficult to assess. The patient does not have a gag. Doll's eyes are difficult to determine. The patient does have an occasional triggering of the ventilator. Pupillary reflexes are sluggish. No response to pain or verbal stimuli. - Labs CBC & Chem 7: 02/25/18 04:05 02/25/18 04:05 Labs: Abnormal Lab Results - Last 24 Hours (Table) 02/24/18 02/24/18 02/24/18 Range/Units 08:49 12:06 15:59 WBC (3.8-10.6) k/uL RBC (4.30-5.90) m/uL Hgb (13.0-17.5) gm/dL Hct (39.0-53.0) % Neutrophils # (1.3-7.7) k/uL Lymphocytes # (1.0-4.8) k/uL ABG pH (7.35-7.45) ABG HCO3 (21-25) mmol/L ABG Total CO2 (19-24) mmol/L ABG O2 Saturation (94-97) % BUN (9-20) mg/dL Creatinine (0.66-1.25) mg/dL POC Glucose (mg/dL) 207 H 210 H 242 H (75-99) mg/dL Phosphorus (2.5-4.5) mg/dL Magnesium (1.6-2.3) mg/dL 02/24/18 02/24/18 02/25/18 Range/Units 19:52 23:40 04:05 WBC 15.0 H (3.8-10.6) k/uL RBC 2.70 L (4.30-5.90) m/uL Hgb 7.8 L (13.0-17.5) gm/dL Hct 24.8 L (39.0-53.0) % Neutrophils # 13.4 H (1.3-7.7) k/uL Lymphocytes # 0.7 L (1.0-4.8) k/uL ABG pH (7.35-7.45) ABG HCO3 (21-25) mmol/L ABG Total CO2 (19-24) mmol/L ABG O2 Saturation (94-97) % BUN (9-20) mg/dL Creatinine (0.66-1.25) mg/dL POC Glucose (mg/dL) 249 H 232 H (75-99) mg/dL Phosphorus (2.5-4.5) mg/dL Magnesium (1.6-2.3) mg/dL 02/25/18 02/25/18 Range/Units 04:05 05:24 WBC (3.8-10.6) k/uL RBC (4.30-5.90) m/uL Hgb (13.0-17.5) gm/dL Hct (39.0-53.0) % Neutrophils # (1.3-7.7) k/uL Lymphocytes # (1.0-4.8) k/uL ABG pH 7.47 H (7.35-7.45) ABG HCO3 31 H (21-25) mmol/L ABG Total CO2 33 H (19-24) mmol/L ABG O2 Saturation 98.2 H (94-97) % BUN 116 H* (9-20) mg/dL Creatinine 6.30 H (0.66-1.25) mg/dL POC Glucose (mg/dL) (75-99) mg/dL Phosphorus 8.0 H (2.5-4.5) mg/dL Magnesium 2.5 H (1.6-2.3) mg/dL Microbiology - Last 24 Hours (Table) 02/24/18 05:25 Blood Culture - Preliminary Blood No Growth after 24 hours 02/24/18 05:07 Blood Culture - Preliminary Blood No Growth after 24 hours 02/24/18 03:05 Gram Stain - Preliminary Catheter Site Wound Culture - Preliminary 02/24/18 05:35 Gram Stain - Preliminary Sputum Sputum Culture - Preliminary 02/19/18 23:29 Blood Culture - Preliminary Blood No Growth after 96 hours 02/24/18 03:05 Anaerobic Culture - Preliminary Penis 02/24/18 06:07 Urine Culture - Preliminary Urine,Catheterized Assessment and Plan Assessment: Assessment Acute pulmonary edema with hypoxemic respiratory failure secondary to diastolic dysfunction Intubation with mechanical ventilation on February 20 for respiratory failure Profound hypoglycemia on presentation Significant anoxic/metabolic encephalopathy. 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 History of hepatitis C infection History of chronic liver disease History of gout History of deep venous thrombosis History of chronic back pain Remote history of IV drug abuse History of hypertensive urgency Stage V chronic kidney disease Penile discharge, rule out bacterial urethritis Plan: Plan dated 02/24/2018 CODE STATUS will have to be addressed in this individual. The patient's mental status is very poor as mentioned above. If the family wants to continue with life support, the patient will need an early tracheostomy and PEG tube placement. The patient could then be sent to select specialty or some sort of chronic ventilator facility. In addition, if the patient does not want this, we might consider terminal weaning. CODE STATUS needs to be addressed so. Microbiology is negative. White count 11.2, hemoglobin 7.8, hematocrit 24.5, and platelet count is normal. In addition, sodium potassium chloride CO2 normal. Anion gap a bit high at 14. BUN and creatinine were 106 and 5.91. Closed his baseline and he has not required hemodialysis. Medications are reviewed. Chest x-ray shows bilateral small effusions. Again overall prognosis remains extremely poor. Medications are reviewed. Critical care time 33 minutes Plan dated 02/25/2018 I spent a long time talking to the sister yesterday. Unfortunately, she would like the patient to have a tracheostomy and PEG tube placement hoping they on hold but the patient will recover neurologic function. We'll consult one of the surgeons for that. In addition, the patient was started on Rocephin for a purulent penile discharge. The patient remains on my support. Neurologic examination is poor. EEG is consistent with profound anoxic/metabolic encephalopathy. White count 15, hemoglobin 7.8, hematocrit 24.8 and platelet count 341,000. Sodium potassium chloride CO2 all normal. Anion gap normal. BUN 116 with creatinine 6.30. Thus far, all microbiologic studies are negative. Again, the patient was started on Rocephin for a purulent penile discharge. Repeat cultures have been done. Medications labs and x-rays are all reviewed. Critical care time 33 minutes Time with Patient: Greater than 30
--- NOTE | 2018-02-25 08:23 | XR ---
EXAMINATION TYPE: XR chest 1V portable DATE OF EXAM: 02/25/2018 COMPARISON: 02/24/2018 HISTORY: Tube placement TECHNIQUE: Single frontal view of the chest is obtained. FINDINGS: ET tube, NG tube, right-sided central line stable. Bilateral consolidation and pleural eff usion seen. No evidence of pneumothorax. Atherosclerotic change aorta. IMPRESSION: 1. Bilateral consolidation and pleural effusion correlate for pulmonary edema versus diffuse pneumoni a. 2. Tip of the NG tube likely at the level of the GE junction and could be advanced.
[2018-02-25] MEDS: HEPARIN SODIUM,PORCINE 5,000 UNIT/ML 1 ML VIAL SQ SCH ×2 (08:38→15:46)
[2018-02-25] MEDS: CHLORHEXIDINE GLUCONATE 15 ML CUP MUCOUS MEM SCH ×2 (08:38→20:06)
[2018-02-25] MEDS: FUROSEMIDE 10 MG/ML 10 ML VIAL IV SCH ×2 (08:38→20:06)
[2018-02-25] MEDS: amLODIPine 10 MG TAB PO SCH (08:38)
[2018-02-25] MEDS: GABAPENTIN 100 MG CAP PO SCH ×3 (08:40→22:56)
[2018-02-25] MEDS: PANTOPRAZOLE 40 MG/10 ML VIAL IVP SCH (08:41)
[2018-02-25] MEDS: LABETALOL 200 MG TAB PO SCH ×3 (08:41→22:55)
[2018-02-25] MEDS: SODIUM BICARBONATE TAB 650 MG TAB PO SCH (08:41)
[2018-02-25] MEDS: TAMSULOSIN 0.4 MG CAP.ER.24H PO SCH (08:42)
[2018-02-25] MEDS: VALPROATE SODIUM 750 MG in SODIUM CHLORIDE 0.9% 50 ML IVPB SCH ×3 (08:42→22:55)
[2018-02-25] MEDS: THIAMINE 100 MG/ML 2 ML VIAL IVP SCH (08:42)
[2018-02-25 09:02] LABS: Glucose,Whole Blood 215 mg/dL (75-99)
[2018-02-25] MEDS: SODIUM FERRIC GLUCONAT-SUCROSE 125 MG in SODIUM CHLORIDE 0.9% 100 ML IVPB SCH (09:11)
--- NOTE | 2018-02-25 10:50 | P.PN ---
Subjective Patient is seen in follow-up for acute kidney injury on chronic kidney disease. Patient has chronic kidney disease stage IV secondary to biopsy-proven diabetic kidney disease with severe chronicity. His baseline creatinine has been in the range of 4-5. Creatinine was 7.65 on admission and did come down to 5.91 as of yesterday - it is up to 6.3 today. Patient was noted to have volume overload with generalized anasarca and is currently maintained on Lasix 80 mg IV two times daily. He is nonoliguric. Currently intubated. Patient is not responding much to stimuli and there is concern for anoxic injury. Scheduled for trach and PEG this week. Vital signs are stable. General: The patient appeared well nourished and normally developed. Intubated. HEENT: Head exam is unremarkable. Neck is without jugular venous distension. LUNGS: Breath sounds decreased. HEART: Rate and Rhythm are regular. First and second heart sounds normal. No murmurs, rubs or gallops. ABDOMEN: Abdominal exam reveals normal bowel sounds. Non-tender and non- distended. No evidence of peritonitis. EXTREMITITES: No clubbing, cyanosis, or edema. Right BKA noted. Objective - Vital Signs Vital signs: Vital Signs Temp 99.3 F 02/25/18 08:00 Pulse 77 02/25/18 09:30 Resp 14 02/25/18 09:30 BP 155/82 02/24/18 03:30 Pulse Ox 98 02/25/18 09:30 Intake & Output 02/24/18 02/25/18 02/25/18 18:59 06:59 18:59 Intake Total 1082 1459 571 Output Total 730 335 120 Balance 352 1124 451 Weight 78.925 kg 78.8 kg 78.8 kg Intake: IV 236 694 289 NS 620 80 Pressure bag 36 24 59 Sodium Ferric Gluconat- 100 100 Sucrose 125 mg In Sodium Chloride 0.9% 100 ml @ 100 mls/hr IVPB DAILY [facility] Rx#:[id number] Valproate Sodium 500 mg 100 50 50 In Sodium Chloride 0.9% 50 ml @ 50 mls/hr IVPB TID RAINE Rx#:[id number] Tube Feeding 427 503 252 Other 90 135 30 Output: Urine 730 335 120 Other: Voiding Method Indwelling Catheter Indwelling Catheter Indwelling Catheter # Bowel Movements 1 ABP, PAP, CO, CI - Last Documented Arterial Blood Pressure 147/62 - Labs CBC & Chem 7: 02/25/18 04:05 02/25/18 04:05 Labs: Abnormal Lab Results - Last 24 Hours (Table) 02/24/18 02/24/18 02/24/18 Range/Units 12:06 15:59 19:52 WBC (3.8-10.6) k/uL RBC (4.30-5.90) m/uL Hgb (13.0-17.5) gm/dL Hct (39.0-53.0) % Neutrophils # (1.3-7.7) k/uL Lymphocytes # (1.0-4.8) k/uL ABG pH (7.35-7.45) ABG HCO3 (21-25) mmol/L ABG Total CO2 (19-24) mmol/L ABG O2 Saturation (94-97) % BUN (9-20) mg/dL Creatinine (0.66-1.25) mg/dL POC Glucose (mg/dL) 210 H 242 H 249 H (75-99) mg/dL Phosphorus (2.5-4.5) mg/dL Magnesium (1.6-2.3) mg/dL 02/24/18 02/25/18 02/25/18 Range/Units 23:40 04:05 04:05 WBC 15.0 H (3.8-10.6) k/uL RBC 2.70 L (4.30-5.90) m/uL Hgb 7.8 L (13.0-17.5) gm/dL Hct 24.8 L (39.0-53.0) % Neutrophils # 13.4 H (1.3-7.7) k/uL Lymphocytes # 0.7 L (1.0-4.8) k/uL ABG pH (7.35-7.45) ABG HCO3 (21-25) mmol/L ABG Total CO2 (19-24) mmol/L ABG O2 Saturation (94-97) % BUN 116 H* (9-20) mg/dL Creatinine 6.30 H (0.66-1.25) mg/dL POC Glucose (mg/dL) 232 H (75-99) mg/dL Phosphorus 8.0 H (2.5-4.5) mg/dL Magnesium 2.5 H (1.6-2.3) mg/dL 02/25/18 02/25/18 Range/Units 05:24 08:31 WBC (3.8-10.6) k/uL RBC (4.30-5.90) m/uL Hgb (13.0-17.5) gm/dL Hct (39.0-53.0) % Neutrophils # (1.3-7.7) k/uL Lymphocytes # (1.0-4.8) k/uL ABG pH 7.47 H (7.35-7.45) ABG HCO3 31 H (21-25) mmol/L ABG Total CO2 33 H (19-24) mmol/L ABG O2 Saturation 98.2 H (94-97) % BUN (9-20) mg/dL Creatinine (0.66-1.25) mg/dL POC Glucose (mg/dL) 215 H (75-99) mg/dL Phosphorus (2.5-4.5) mg/dL Magnesium (1.6-2.3) mg/dL Microbiology - Last 24 Hours (Table) 02/24/18 03:05 Gram Stain - Final Catheter Site Wound Culture - Final 02/24/18 05:25 Blood Culture - Preliminary Blood No Growth after 24 hours 02/24/18 05:07 Blood Culture - Preliminary Blood No Growth after 24 hours 02/24/18 05:35 Gram Stain - Preliminary Sputum Sputum Culture - Preliminary 02/19/18 23:29 Blood Culture - Preliminary Blood No Growth after 96 hours 02/24/18 03:05 Anaerobic Culture - Preliminary Penis 02/24/18 06:07 Urine Culture - Preliminary Urine,Catheterized Assessment and Plan Plan: Assessment: 1. Acute kidney injury secondary to ATN secondary to cardiorenal syndrome. Creatinine 7.65 on admission and did come down to 5.9 this admission. It is up to 6.3 today. 2. Chronic kidney disease stage IV with baseline creatinine in the range of 4- 5. Etiology is biopsy proven diabetic kidney disease. He is noted to have severe chronicity. 3. Hyperkalemia secondary to acute kidney injury. Improved with medical management. 4. Insulin-dependent diabetes mellitus. 5. Hypertension with chronic kidney disease. 5. Volume overload. Improving. 6. Diastolic CHF. 7. Acute hypoxic respiratory failure currently intubated. 8. Anemia of chronic kidney disease. Iron deficiency noted.Status post 3 doses of IV iron. 9. History of hepatitis C. He was to follow-up with GI as outpatient. 10. Hyperphosphatemia secondary to acute kidney injury maintained on PhosLo. 11. Seizure which appears to be due to hypoglycemia. Neurology following. Concern for anoxia. Plan: Maintain Lasix 80 mg IV twice daily. Avoid nephrotoxins. Strict I's and O's. Decreased dose of Neurontin to 100 mg 3 times daily. Wean FiO2. Patient seems to have progressed to chronic kidney disease stage V with no significant improvement in his renal function this admission. Family has decided to proceed with trach and PEG. Consult vascular surgery for permacath placement. Plan for first hemodialysis treatment tomorrow.
--- NOTE | 2018-02-25 11:37 | P.PN ---
Subjective Patient is a 67-year-old -[place] male who is being followed by the neurology service for possible seizure. Patient was brought to [facility] emergency room with shortness of breath. He was found to have significant pulmonary edema. Patient does have stage IV chronic kidney disease. Patient was being treated in the emergency room when one of the nurses noted patient to be unresponsive. Patient had questionable jerking activity. Patient had significant hypoglycemia in the 20s. He was given D50, intubated and sedated. Patient is currently in the ICU. Computed tomography scan of the brain was done which showed no acute abnormality. Computed tomography scan did show evidence of mild generalized atrophy. Patient was noted to have some rhythmic jerking. Patient was taken off propofol and had an EEG done. EEG showed generalized slowing of the background rhythm. EEG also showed significant triphasic waves which is commonly seen in hepatic pathology. Myoclonic activity was described. Patient was started on Depakote 500 mg every 12 hours IV. Staff reports no further jerking movements since starting Depakote. Patient remains sedated with propofol and on mechanical ventilation. acute kidney injury on chronic kidney disease. Patient has chronic kidney disease stage IV secondary to biopsy-proven diabetic kidney disease with severe chronicity. His baseline creatinine has been in the range of 4-5. Creatinine was 7.65 on admission 02/23/2018 this is my first day taking care of the pt , pt is still on vent , he has been off sedation , however he is still not waking up as expected . pt could have metabolic encephalopathy , vs other . pt with acute on chronic Kidney disease stage IV. nephrology are following the case .Creatinine was 7.65 on admission and is 5.99 today. pt is been seen by neurology who recommended to repeat the EEG and result is pending.pt had subtherapeutic level and extra doses were provided for him yesterday EEG from 02/21: abnormal with significant triphasic waves which is commonly seen in hepatic encephalopahty pt still does not respond to pain stimuli. despite been off sedation since this morning. pupils are equal and reactive to light, meningeal signs were absent when i examined the pt this morning pt has h/o Hep C and B , we will check ammonia level and other work up like B12 ,thyroid function test, syphlis screen ,repeat CT of the head ,with neurology follow up. no fever , no leukocytosis 02/24/2018 no change from yesterday in his mental status from the first time a saw her , still unresponsive , neurologist team is following the pt and recommended repeat EEG. critical care input is appreciated . ammonia level and TSH were negative , repeat CT head is negative for acute process as well 02/25/2018 Patient remains unresponsive as before. Repeat EEG showing moderate encephalopathy, significant triphasic waves consistent with hepatic disease. Occasional sharp wave consistent with due to seizure threshold. But no generalized epileptiform discharge. Patient is a plan to have trach placed on the surgical site. As well as dialysis catheter for dialysis. Patient has Delcid catheter with 40 mL in the bag. There is purulent discharge from the penis. Discussed with staff. Check culture for the discharge, change. AND CHECK BLADDER SCAN Objective - Vital Signs Vital signs: Vital Signs Temp 99.3 F 02/25/18 08:00 Pulse 72 02/25/18 11:00 Resp 15 02/25/18 11:00 BP 155/82 02/24/18 03:30 Pulse Ox 99 02/25/18 11:11 Intake & Output 02/24/18 02/25/18 02/25/18 18:59 06:59 18:59 Intake Total 1082 1459 631 Output Total 730 335 160 Balance 352 1124 471 Weight 78.925 kg 78.8 kg 78.8 kg Intake: IV 236 694 265 NS 620 100 Pressure bag 36 24 15 Sodium Ferric Gluconat- 100 100 Sucrose 125 mg In Sodium Chloride 0.9% 100 ml @ 100 mls/hr IVPB DAILY RAINE Rx#:[id number] Valproate Sodium 500 mg 100 50 50 In Sodium Chloride 0.9% 50 ml @ 50 mls/hr IVPB TID RAINE Rx#:[id number] Tube Feeding 756 630 336 Other 90 135 30 Output: Urine 730 335 160 Other: Voiding Method Indwelling Catheter Indwelling Catheter Indwelling Catheter # Bowel Movements 1 ABP, PAP, CO, CI - Last Documented Arterial Blood Pressure 145/61 - Exam -GENERAL: The patient is unresponsive , does not open eyes,intubated. not in any acute distress. Well developed, HEENT: Pupils are round and equally reacting to light. EOMI. No scleral icterus. No conjunctival pallor. Normocephalic, atraumatic. No pharyngeal erythema. No thyromegaly. CARDIOVASCULAR: S1 and S2 present. No murmurs, rubs, or gallops. -PULMONARY: Chest is clear to auscultation, no wheezing. Bilateral scattered crackles. ABDOMEN: Soft, nontender, nondistended, normoactive bowel sounds. No palpable organomegaly. MUSCULOSKELETAL: No joint swelling or deformity. EXTREMITIES: No cyanosis, clubbing, or pedal edema. -s/p right BKA -NEUROLOGICAL: unresponsive to verbal or painful stinuli, does not open eyes. SKIN: No rashes. - Labs CBC & Chem 7: 02/25/18 04:05 02/25/18 04:05 Labs: Abnormal Lab Results - Last 24 Hours (Table) 02/24/18 02/24/18 02/24/18 Range/Units 12:06 15:59 19:52 WBC (3.8-10.6) k/uL RBC (4.30-5.90) m/uL Hgb (13.0-17.5) gm/dL Hct (39.0-53.0) % Neutrophils # (1.3-7.7) k/uL Lymphocytes # (1.0-4.8) k/uL ABG pH (7.35-7.45) ABG HCO3 (21-25) mmol/L ABG Total CO2 (19-24) mmol/L ABG O2 Saturation (94-97) % BUN (9-20) mg/dL Creatinine (0.66-1.25) mg/dL POC Glucose (mg/dL) 210 H 242 H 249 H (75-99) mg/dL Phosphorus (2.5-4.5) mg/dL Magnesium (1.6-2.3) mg/dL 02/24/18 02/25/18 02/25/18 Range/Units 23:40 04:05 04:05 WBC 15.0 H (3.8-10.6) k/uL RBC 2.70 L (4.30-5.90) m/uL Hgb 7.8 L (13.0-17.5) gm/dL Hct 24.8 L (39.0-53.0) % Neutrophils # 13.4 H (1.3-7.7) k/uL Lymphocytes # 0.7 L (1.0-4.8) k/uL ABG pH (7.35-7.45) ABG HCO3 (21-25) mmol/L ABG Total CO2 (19-24) mmol/L ABG O2 Saturation (94-97) % BUN 116 H* (9-20) mg/dL Creatinine 6.30 H (0.66-1.25) mg/dL POC Glucose (mg/dL) 232 H (75-99) mg/dL Phosphorus 8.0 H (2.5-4.5) mg/dL Magnesium 2.5 H (1.6-2.3) mg/dL 02/25/18 02/25/18 Range/Units 05:24 08:31 WBC (3.8-10.6) k/uL RBC (4.30-5.90) m/uL Hgb (13.0-17.5) gm/dL Hct (39.0-53.0) % Neutrophils # (1.3-7.7) k/uL Lymphocytes # (1.0-4.8) k/uL ABG pH 7.47 H (7.35-7.45) ABG HCO3 31 H (21-25) mmol/L ABG Total CO2 33 H (19-24) mmol/L ABG O2 Saturation 98.2 H (94-97) % BUN (9-20) mg/dL Creatinine (0.66-1.25) mg/dL POC Glucose (mg/dL) 215 H (75-99) mg/dL Phosphorus (2.5-4.5) mg/dL Magnesium (1.6-2.3) mg/dL Microbiology - Last 24 Hours (Table) 02/24/18 06:07 Urine Culture - Final Urine,Catheterized 02/24/18 05:35 Gram Stain - Preliminary Sputum Sputum Culture - Preliminary Gram Neg Bacilli Presumptive Staph aureus 02/24/18 03:05 Gram Stain - Final Catheter Site Wound Culture - Final 02/24/18 05:25 Blood Culture - Preliminary Blood No Growth after 24 hours 02/24/18 05:07 Blood Culture - Preliminary Blood No Growth after 24 hours 02/19/18 23:29 Blood Culture - Preliminary Blood No Growth after 96 hours 02/24/18 03:05 Anaerobic Culture - Preliminary Penis Assessment and Plan Plan: Assessment and Plan -Acute hypoxic respiratory failure: Secondary to congestive heart failure chronic diastolic dysfunction with acute exacerbation patient was started on high-dose of Lasix. Continuing with the ventilatory support, diurese well improved creatinine with Lasix. Improving -possible seizure related to low glu , neurology team is following the pt , on depakote and level checked as per neuro team recommendation -acute on chronic renal failure , f/u with nephrology -metabolic encephalopathy , possibly secondary to all above -Ventilator dependent respiratory failure -Acute renal failure: Believed to be secondary to cardiorenal syndrome improved with Lasix -Hyperkalemia secondary to acute renal failure and chronic kidney disease, treatment as mentioned above with albuterol and Kayexlate, improved now and nephrology is following the patient -Chronic kidney disease stage IV -Hyperkalemia secondary to acute renal failure -Anemia of of chronic kidney disease -Peripheral vascular disease -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 -Hypotension is possibly secondary to sedation antidepressive medications will be held and restarted as needed. Hyperlipidemia -Episode of seizure believed to be secondary to hypoglycemia and encephalopathy EEG showed diffuse slowing. patient has metabolic and toxic encephalopathy -Possible [place] discharge from the penile orifice. Culture: Pending DVT and GI px. pt is on heparin and protonix prognosis is guarded
[2018-02-25 11:59] LABS: Glucose,Whole Blood 243 mg/dL (75-99)
[2018-02-25 15:51] LABS: Glucose,Whole Blood 217 mg/dL (75-99)
--- NOTE | 2018-02-25 16:53 | P.GSCN ---
History of Present Illness Consult date: 02/25/18 Reason for Consult: Respiratory failure History of present illness: 67-year-old male was intubated on 02/20. Patient has very poor mental status on the ventilator. He is being followed by neurology. Family is not interested and terminal wean at this time. We were consulted for tracheostomy and PEG tube placement. Review of Systems ROS unobtainable: due to endotracheal tube Past Medical History Past Medical History: COPD, Diabetes Mellitus, Deep Vein Thrombosis (DVT), Eye Disorder, GERD/Reflux, Hyperlipidemia, Hypertension, Liver Disease, Pneumonia, Prostate Disorder, Renal Disease Additional Past Medical History / Comment(s): Pt recently admitted to [facility] on 02/01/18 with acute on chronic kidney injury, malignant htn, urinary retention. cocaine abuse. Other hx: IDDM-poorly controlled with admissions for DKA and metabolic encephalopathies, severe sepsis with R foot gangrene with metabolic encephalopathy resulting in R BKA 07/2014, chronic renal failure with known history of stage III chronic kidney disease, electolyte abnormalities, DJD, NEUROPATHY bilateral legs and feet, pinch nerves on right neck and left hip, herniated disc causing sciatic pain, chronic back pain, falls, fracture lower left ribs, DVT leg, hepatitis B viral infection, Hepatits c- was going to [place] for interferon yrs ago that did not work, concussions, gout, IBS, BPH, gonorrhea. History of Any Multi-Drug Resistant Organisms: MRSA Year Discovered:: 07/02/17 MDRO Source:: 2nd left toe Past Surgical History: Orthopedic Surgery Additional Past Surgical History / Comment(s): L renal biopsy, 07/27/14 R BKA, liver bx in [place], RT ORBIT reconstruction x 2, fracture of left hip 2013 with surgery, LT ARM ORIF, SAM KNEES scoped, LT FINGER, colonoscopy, EGD, L hand sx, R inguinal hernia surgery x2, circumcism. Past Anesthesia/Blood Transfusion Reactions: No Reported Reaction Smoking Status: Current every day smoker - Past Family History Father Additional Family Medical History / Comment(s): ulcers Mother Family Medical History: Diabetes Mellitus Additional Family Medical History / Comment(s): Mother in her 80's. Sister(s) Family Medical History: Diabetes Mellitus Medications and Allergies Home Medications Medication Instructions Recorded Confirmed Type Gabapentin 800 mg PO TID #90 tab 05/25/16 02/19/18 Rx Simvastatin [Zocor] 20 mg PO HS #30 tab 05/25/16 02/19/18 Rx Tamsulosin [Flomax] 0.4 mg PO DAILY #30 cap 07/05/17 02/19/18 Rx Insulin Glulisine [Apidra Solostar] 8 - 10 unit SQ AC-TID 01/30/18 02/19/18 History Calcium Acetate [PhosLo] 667 mg PO TID-W/MEALS #90 cap 02/14/18 02/19/18 Rx Insulin Glargine [Lantus] 20 unit SQ HS #0 02/14/18 02/19/18 Rx Labetalol [Trandate] 400 mg PO Q8HR #90 tab 02/14/18 02/19/18 Rx Sodium Bicarbonate Tab 650 mg PO DAILY #30 tab 02/14/18 02/19/18 Rx amLODIPine [Norvasc] 5 mg PO BID #60 tab 02/14/18 02/19/18 Rx cloNIDine HCL [Catapres] 0.2 mg PO Q8HR #90 tab 02/14/18 02/19/18 Rx hydrALAZINE HCL [Apresoline] 100 mg PO Q8H #90 tab 02/14/18 02/19/18 Rx Allergies Allergy/AdvReac Type Severity Reaction Status Date / Time No Known Allergies Allergy Verified 02/20/18 08:54 Surgical - Exam Vital Signs Temp Pulse Resp BP Pulse Ox 97.5 F L 73 22 152/82 94 L 02/19/18 23:07 02/19/18 23:07 02/19/18 23:07 02/19/18 23:07 02/19/18 23:07 Physical exam: General: Well-developed, well-nourished HEENT: Normocephalic, sclerae nonicteric, intubated Abdomen: Nontender, nondistended Extremities: Previous amputation Neuro: On ventilator Results - Labs 02/25/18 04:05 02/25/18 04:05 Abnormal Lab Results - Last 24 Hours (Table) 02/24/18 02/24/18 02/25/18 Range/Units 19:52 23:40 04:05 WBC 15.0 H (3.8-10.6) k/uL RBC 2.70 L (4.30-5.90) m/uL Hgb 7.8 L (13.0-17.5) gm/dL Hct 24.8 L (39.0-53.0) % Neutrophils # 13.4 H (1.3-7.7) k/uL Lymphocytes # 0.7 L (1.0-4.8) k/uL ABG pH (7.35-7.45) ABG HCO3 (21-25) mmol/L ABG Total CO2 (19-24) mmol/L ABG O2 Saturation (94-97) % BUN (9-20) mg/dL Creatinine (0.66-1.25) mg/dL POC Glucose (mg/dL) 249 H 232 H (75-99) mg/dL Phosphorus (2.5-4.5) mg/dL Magnesium (1.6-2.3) mg/dL 02/25/18 02/25/18 02/25/18 Range/Units 04:05 05:24 08:31 WBC (3.8-10.6) k/uL RBC (4.30-5.90) m/uL Hgb (13.0-17.5) gm/dL Hct (39.0-53.0) % Neutrophils # (1.3-7.7) k/uL Lymphocytes # (1.0-4.8) k/uL ABG pH 7.47 H (7.35-7.45) ABG HCO3 31 H (21-25) mmol/L ABG Total CO2 33 H (19-24) mmol/L ABG O2 Saturation 98.2 H (94-97) % BUN 116 H* (9-20) mg/dL Creatinine 6.30 H (0.66-1.25) mg/dL POC Glucose (mg/dL) 215 H (75-99) mg/dL Phosphorus 8.0 H (2.5-4.5) mg/dL Magnesium 2.5 H (1.6-2.3) mg/dL 02/25/18 02/25/18 Range/Units 11:48 15:49 WBC (3.8-10.6) k/uL RBC (4.30-5.90) m/uL Hgb (13.0-17.5) gm/dL Hct (39.0-53.0) % Neutrophils # (1.3-7.7) k/uL Lymphocytes # (1.0-4.8) k/uL ABG pH (7.35-7.45) ABG HCO3 (21-25) mmol/L ABG Total CO2 (19-24) mmol/L ABG O2 Saturation (94-97) % BUN (9-20) mg/dL Creatinine (0.66-1.25) mg/dL POC Glucose (mg/dL) 243 H 217 H (75-99) mg/dL Phosphorus (2.5-4.5) mg/dL Magnesium (1.6-2.3) mg/dL Microbiology - Last 24 Hours (Table) 02/19/18 23:29 Blood Culture - Preliminary Blood No Growth after 120 hours 02/24/18 06:07 Urine Culture - Final Urine,Catheterized 02/24/18 05:35 Gram Stain - Preliminary Sputum Sputum Culture - Preliminary Gram Neg Bacilli Presumptive Staph aureus 02/24/18 03:05 Gram Stain - Final Catheter Site Wound Culture - Final 02/24/18 05:25 Blood Culture - Preliminary Blood No Growth after 24 hours 02/24/18 05:07 Blood Culture - Preliminary Blood No Growth after 24 hours Diabetes panel 02/25/18 Range/Units 04:05 Sodium 142 (137-145) mmol/L Potassium 4.7 (3.5-5.1) mmol/L Chloride 101 (98-107) mmol/L Carbon Dioxide 30 (22-30) mmol/L BUN 116 H* (9-20) mg/dL Creatinine 6.30 H (0.66-1.25) mg/dL Glucose 76 (74-99) mg/dL Calcium 9.2 (8.4-10.2) mg/dL Calcium panel 02/25/18 Range/Units 04:05 Calcium 9.2 (8.4-10.2) mg/dL Phosphorus 8.0 H (2.5-4.5) mg/dL Pituitary panel 02/25/18 Range/Units 04:05 Sodium 142 (137-145) mmol/L Potassium 4.7 (3.5-5.1) mmol/L Chloride 101 (98-107) mmol/L Carbon Dioxide 30 (22-30) mmol/L BUN 116 H* (9-20) mg/dL Creatinine 6.30 H (0.66-1.25) mg/dL Glucose 76 (74-99) mg/dL Calcium 9.2 (8.4-10.2) mg/dL Adrenal panel 02/25/18 Range/Units 04:05 Sodium 142 (137-145) mmol/L Potassium 4.7 (3.5-5.1) mmol/L Chloride 101 (98-107) mmol/L Carbon Dioxide 30 (22-30) mmol/L BUN 116 H* (9-20) mg/dL Creatinine 6.30 H (0.66-1.25) mg/dL Glucose 76 (74-99) mg/dL Calcium 9.2 (8.4-10.2) mg/dL Assessment and Plan (1) Respiratory failure Narrative/Plan: Continue neurologic assessments. We'll tentatively plan tracheostomy and PEG tube placement on 02/27. Will discuss further with the family regarding the risks and the benefits. Current Visit: Yes Status: Acute Code(s): J96.90 - RESPIRATORY FAILURE, UNSP , UNSP W HYPOXIA OR HYPERCAPNIA SNOMED Code(s): 976064896
--- NOTE | 2018-02-25 18:29 | P.PN ---
Subjective Progress Note Date: 02/25/18 Principal diagnosis: Seizure Neurology is following on a 67-year-old male procedures. Patient was seen in the ICU where he is intubated on mechanical ventilator. Patient continues to be unresponsive. He is unresponsive to deep pain. Patients Depakote level is currently therapeutic at 52.9. Patients EEG is abnormal and consistent with moderate encephalopathy. Patient continues to have significant triphasic waves which are consistent with hepatic disease. Occasional sharp wave activity is also seen which is consistent with reduced seizure threshold. At time of evaluation patient is in the ICU and is unresponsive. 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 No family or other visitors were present in the room. Nursing reports no new changes in the past 24 hours. Patient is scheduled to have an EEG tomorrow, 02/26/18. Objective - Vital Signs Vital signs: Vital Signs Temp 98.6 F 02/25/18 16:00 Pulse 71 02/25/18 17:00 Resp 16 02/25/18 17:00 BP 155/82 02/24/18 03:30 Pulse Ox 97 02/25/18 17:00 Intake & Output 02/24/18 02/25/18 02/25/18 18:59 06:59 18:59 Intake Total 1082 1459 1215 Output Total 730 335 350 Balance 352 1124 865 Weight 78.925 kg 78.8 kg 78.8 kg Intake: IV 236 694 453 NS 620 220 Pressure bag 36 24 33 Sodium Ferric Gluconat- 100 100 Sucrose 125 mg In Sodium Chloride 0.9% 100 ml @ 100 mls/hr IVPB DAILY RAINE Rx#:[id number] Valproate Sodium 500 mg 100 50 50 In Sodium Chloride 0.9% 50 ml @ 50 mls/hr IVPB TID RAINE Rx#:[id number] Valproate Sodium 750 mg 50 In Sodium Chloride 0.9% 50 ml @ 50 mls/hr IVPB TID RAINE Rx#:[id number] Tube Feeding 756 630 672 Other 90 135 90 Output: Urine 730 335 350 Other: Voiding Method Indwelling Catheter Indwelling Catheter Indwelling Catheter # Bowel Movements 1 1 ABP, PAP, CO, CI - Last Documented Arterial Blood Pressure 131/58 - Exam General appearance: On mechanical ventilator Head: Atraumatic, normocephalic Eyes: Pupils sluggish Ear, nose and throat: Normal exam, mucous membranes moist Neck: Normal inspection, absent tenderness, lymphadenopathy. Respiratory: Mechanical ventilator and use Cardiovascular: Telemetry monitoring GI/abdominal: No guarding Extremities: Unable to move extremities, right lower extremity amputation Neurological: Full neurological status unable to be assessed due to patient being on a ventilator, does not respond to painful stimuli, slight gag reflex - Labs CBC & Chem 7: 02/25/18 04:05 02/25/18 04:05 Labs: Abnormal Lab Results - Last 24 Hours (Table) 02/24/18 02/24/18 02/25/18 Range/Units 19:52 23:40 04:05 WBC 15.0 H (3.8-10.6) k/uL RBC 2.70 L (4.30-5.90) m/uL Hgb 7.8 L (13.0-17.5) gm/dL Hct 24.8 L (39.0-53.0) % Neutrophils # 13.4 H (1.3-7.7) k/uL Lymphocytes # 0.7 L (1.0-4.8) k/uL ABG pH (7.35-7.45) ABG HCO3 (21-25) mmol/L ABG Total CO2 (19-24) mmol/L ABG O2 Saturation (94-97) % BUN (9-20) mg/dL Creatinine (0.66-1.25) mg/dL POC Glucose (mg/dL) 249 H 232 H (75-99) mg/dL Phosphorus (2.5-4.5) mg/dL Magnesium (1.6-2.3) mg/dL 02/25/18 02/25/18 02/25/18 Range/Units 04:05 05:24 08:31 WBC (3.8-10.6) k/uL RBC (4.30-5.90) m/uL Hgb (13.0-17.5) gm/dL Hct (39.0-53.0) % Neutrophils # (1.3-7.7) k/uL Lymphocytes # (1.0-4.8) k/uL ABG pH 7.47 H (7.35-7.45) ABG HCO3 31 H (21-25) mmol/L ABG Total CO2 33 H (19-24) mmol/L ABG O2 Saturation 98.2 H (94-97) % BUN 116 H* (9-20) mg/dL Creatinine 6.30 H (0.66-1.25) mg/dL POC Glucose (mg/dL) 215 H (75-99) mg/dL Phosphorus 8.0 H (2.5-4.5) mg/dL Magnesium 2.5 H (1.6-2.3) mg/dL 02/25/18 02/25/18 Range/Units 11:48 15:49 WBC (3.8-10.6) k/uL RBC (4.30-5.90) m/uL Hgb (13.0-17.5) gm/dL Hct (39.0-53.0) % Neutrophils # (1.3-7.7) k/uL Lymphocytes # (1.0-4.8) k/uL ABG pH (7.35-7.45) ABG HCO3 (21-25) mmol/L ABG Total CO2 (19-24) mmol/L ABG O2 Saturation (94-97) % BUN (9-20) mg/dL Creatinine (0.66-1.25) mg/dL POC Glucose (mg/dL) 243 H 217 H (75-99) mg/dL Phosphorus (2.5-4.5) mg/dL Magnesium (1.6-2.3) mg/dL Microbiology - Last 24 Hours (Table) 02/19/18 23:29 Blood Culture - Preliminary Blood No Growth after 120 hours 02/24/18 06:07 Urine Culture - Final Urine,Catheterized 02/24/18 05:35 Gram Stain - Preliminary Sputum Sputum Culture - Preliminary Gram Neg Bacilli Presumptive Staph aureus 02/24/18 03:05 Gram Stain - Final Catheter Site Wound Culture - Final 02/24/18 05:25 Blood Culture - Preliminary Blood No Growth after 24 hours 02/24/18 05:07 Blood Culture - Preliminary Blood No Growth after 24 hours Assessment and Plan (1) Seizure Current Visit: Yes Status: Acute Code(s): R56.9 - UNSPECIFIED CONVULSIONS SNOMED Code(s): 12467893 (2) Acute on chronic renal failure Current Visit: Yes Status: Acute Code(s): N17.9 - ACUTE KIDNEY FAILURE, UNSPECIFIED; N18.9 - CHRONIC KIDNEY DISEASE, UNSPECIFIED SNOMED Code(s): 431786880 (3) Respiratory failure Current Visit: Yes Status: Acute Code(s): J96.90 - RESPIRATORY FAILURE, UNSP , UNSP W HYPOXIA OR HYPERCAPNIA SNOMED Code(s): 860899969 (4) Altered mental status Current Visit: No Status: Acute Code(s): R41.82 - ALTERED MENTAL STATUS, UNSPECIFIED SNOMED Code(s): 941374531 (5) Chronic kidney disease Current Visit: No Status: Acute Code(s): N18.9 - CHRONIC KIDNEY DISEASE, UNSPECIFIED SNOMED Code(s): 061772440 Plan: Seizures appear possibly multifactorial in etiology and may include: Hypoglycemia, subtherapeutic medication level/Depakote. Patient does exhibit some characteristics of hypoxic encephalopathy and hypoglycemic encephalopathy as previously noted by other neurological provider. Chronic kidney disease is also an underlying contributory etiology as well. EEG notes significant changes with triphasic waves consistent with hepatic pathology. Repeat EEG has already been scheduled for 02/26/18. Depakote has already been increased to 750 mg IV 3 times a day. Depakote level has been noted to be therapeutic since medication change. Nursing reports no new seizure-like activity since change. Updated CT of the brain showed no acute findings. Trach and PEG evaluation is scheduled for tomorrow per nursing staff. Continue management per primary team. If EEG remains unchanged on 02/26/18, neurology will follow only on an as -needed basis after that time and defer further management to primary team. Status: Neurology will continue to follow and provide updates as needed or warranted. Feel free to contact our office with any further questions. I have discussed the plan of care with the physician prior to implementation and he agrees with the plan as implemented.
[2018-02-25 20:00] LABS: Glucose,Whole Blood 207 mg/dL (75-99)
[2018-02-25] MEDS: ATORVASTATIN 10 MG TAB PO SCH (20:07)
[2018-02-25 23:24] LABS: Glucose,Whole Blood 226 mg/dL (75-99)
[2018-02-26] MEDS: INSULIN ASPART 100 UNIT/ML 1 ML 10 ML VIAL SQ SCH ×6 (00:44→20:41)
[2018-02-26] MEDS: HEPARIN SODIUM,PORCINE 5,000 UNIT/ML 1 ML VIAL SQ SCH ×3 (00:44→15:24)
[2018-02-26] MEDS: IPRATROPIUM-ALBUTEROL 3 ML NEB INHALATION SCH ×6 (04:11→23:57)
[2018-02-26 04:33] LABS: Glucose,Whole Blood 276 mg/dL (75-99)
[2018-02-26 05:01] LABS: ABG Base Excess 5.4 mmol/L; ABG HCO3 29 mmol/L (21-25); ABG Oxygen Saturation 97.6 % (94-97); ABG PCO2 43 mmHg (35-45); ABG PH 7.45 (7.35-7.45); ABG PO2 87 mmHg (83-108); ABG TCO2 31 mmol/L (19-24)
[2018-02-26 05:35] LABS: Basophils % (A) 0 %; Eosinophils % (A) 0 %; HCT 23.6 % (39.0-53.0); HGB 7.4 gm/dL (13.0-17.5); Hypochromasia Moderate; Lymphocytes # (A) 0.6 k/uL (1.0-4.8); Lymphocytes % (A) 5 %; MCH 29.7 pg (25.0-35.0); MCHC 31.3 g/dL (31.0-37.0); MCV 94.8 fL (80.0-100.0); Mean Platelet Volume 7.3; Monocytes # (A) 0.6 k/uL (0-1.0); Monocytes % (A) 5 %; Neutrophils # (A) 9.8 k/uL (1.3-7.7); Neutrophils % (A) 88 %; Platelet Count 308 k/uL (150-450); RBC 2.48 m/uL (4.30-5.90); WBC 11.1 k/uL (3.8-10.6)
[2018-02-26 05:38] LABS: Albumin 2.7 g/dL (3.5-5.0); Calcium 8.8 mg/dL (8.4-10.2); Magnesium 2.5 mg/dL (1.6-2.3); Phosphorus 7.4 mg/dL (2.5-4.5); Total Bilirubin 0.3 mg/dL (0.2-1.3); Total Protein 5.9 g/dL (6.3-8.2)
[2018-02-26 05:44] LABS: Prothrombin Time 10.2 sec (9.0-12.0); Valproic Acid (Depakene) 51.2 ug/mL
[2018-02-26] MEDS: hydrALAZINE HCL 20 MG/ML 1 ML VIAL IVP PRN (06:16)
[2018-02-26] MEDS ORDERED: VANCOMYCIN 1,500 MG in SODIUM CHLORIDE 0.9% 250 ML IVPB STA (06:57)
[2018-02-26] MEDS ORDERED: VANCOMYCIN IV PER PHARMACY 1 EACH MISC MISCELLANE PRN (06:59)
[2018-02-26 07:33] LABS: Glucose,Whole Blood 214 mg/dL (75-99)
--- NOTE | 2018-02-26 07:46 | XR ---
EXAMINATION TYPE: XR chest 1V portable DATE OF EXAM: 02/26/2018 COMPARISON: Prior chest x-ray 02/25/2018 HISTORY: Intubated TECHNIQUE: Single frontal view of the chest is obtained. FINDINGS: Endotracheal tube and NG tube, right subclavian central venous catheter are overlying appr opriate positions. Patient is rotated. Heart size is stable and may be accentuated due to technique. Patchy bibasilar densities present, hemidiaphragms are obscured. Interstitium is increased. No eviden t pneumothorax. IMPRESSION: Correlate for congestive heart failure and pulmonary edema, pneumonia not excluded. Cons ider ARDS, follow-up recommended.
--- NOTE | 2018-02-26 08:27 | P.PN ---
Subjective Progress Note Date: 02/26/18 Principal diagnosis: Renal failure, respiratory failure, seizure, profound anoxic/metabolic encephalopathy. Progress note dated 02/24/2018 This is a 67-year-old male with a history of renal failure respiratory failure seizure disorder and significant anoxic/metabolic encephalopathy. The patient was admitted on the and intubated on the . He has not been on any sedation for more than 2 days. Unfortunately, the patient's mental status is extremely poor. He does not respond well to deep pain or any other stimuli for that matter. He does not have a gag reflex. His pupillary reflexes are very sluggish. He has been seen by neurology. A CT of the brain has been done 2. Also, the patient will have 2 EEGs. Currently, the patient is a full code. CODE STATUS does need to be addressed. The patient is on the ventilator. He is on the volume assist control mode, rate of 14, tidal volume 500, FiO2 35% and PEEP of 5. Blood gases are reasonable with a PaO2 of 89 a PaCO2 of 40 and a pH of 7.48. For blood pressure control, the patient's on labetalol, Norvasc, hydralazine, and Catapres patch. The chest x-ray shows bilateral effusions. Microbiology is negative. I did ask the nurse to call the family to discuss CODE STATUS. If they want continued full care, the patient should have a early tracheostomy and PEG tube placement. If not, terminal weaning would be appropriate in my opinion given his poor mental status. Progress note dated 02/25/2018 This is a 67-year-old black male with history of renal failure, respiratory failure, seizure disorder, and significant anoxic/metabolic encephalopathy. He was admitted on the and intubated on the for respiratory failure. He has not been on any sedatives hypnotics narcotics and tranquilizers for more than 2 days. The patient's mental status is extremely poor. He has not responded to deep pain or verbal stimuli. Pupils were midpoint and sluggishly reactive. There is no gag reflex. No corneal reflex. He does occasionally trigger the ventilator. He's had a CAT scan of the brain 2 and 3 EEGs. I had a long discussion with the patient's sister yesterday. She is currently about making the patient a comfort measures and allowing him to be taken off life support. She apparently had to make a decision to amputate his leg and for that reason, the patient's sister the preferred to proceed with tracheostomy and PEG tube and a chronic ventilator facility as opposed to comfort measures. The patient is suffering from significant penile discharge. It's very green and yellow and purulent looking. I added Rocephin this morning. Cultures have been done and are pending. Prognosis is extremely poor. Currently, he is on the volume assist control mode, rate of 14, tidal volume 500, FiO2 35% and PEEP of 5. Arterial blood gases show a PaO2 of 92 a PaCO2 of 44 and a pH of 7.46. The patient's IV is saline at 20 mL an hour. He is getting tube feeds. Progress note dated 02/26/2018 67-year-old black male with a history of respiratory failure renal fire seizure disorder and profound anoxic/metabolic encephalopathy. He was admitted back on February 19 and intubated on the for acute respiratory failure. The patient has not had any sedatives hypnotics narcotics tranquilizers for the last 3 or 4 days. The patient's mental status is extremely poor. He does not respond to deep pain or verbal stimuli. The patient does have sluggishly reactive pupils. There is no corneal reflex. There is no gag reflex. He does trigger the ventilator occasionally. He's had CAT scans of the brain and EEGs multiple times. I've had a discussion with the patient's sister. She feels that she wants to give the patient every chance to improve neurologically and is willing to proceed with tracheostomy and PEG tube placement despite my urgings otherwise. I told her that after tracheostomy and PEG tube placement, the patient would likely go to a specialized nursing facility or chronic ventilator management facility. She is okay with this. Currently, the patient' s on the volume assist control mode with a rate of 14, tidal [place] 500, FiO2 35% and PEEP of 5. Arterial blood gases show a PaO2 of 87.3 PaCO2 43 and a pH of 7.45. The patient's IV is saline at 20 mL an hour. Tube feeds are on hold for an anticipated trach and PEG today although on learning that possibly will be done until tomorrow. Sputum was positive for gram-negative bacilli and possible staph aureus. The patient's on Rocephin and vancomycin. Trach and PEG will be done either today or tomorrow. Prognosis is very poor. Objective - Vital Signs Vital signs: Vital Signs Temp 100.2 F H 02/26/18 08:00 Pulse 79 02/26/18 08:00 Resp 14 02/26/18 08:00 BP 168/83 02/26/18 07:00 Pulse Ox 100 02/26/18 08:00 Intake & Output 02/25/18 02/26/18 02/26/18 18:59 06:59 18:59 Intake Total 1238 620 46 Output Total 375 321 50 Balance 863 299 -4 Weight 78.8 kg 77.4 kg Intake: IV 476 326 46 NS 240 240 40 Pressure bag 36 36 6 Sodium Ferric Gluconat- 100 Sucrose 125 mg In Sodium Chloride 0.9% 100 ml @ 100 mls/hr IVPB DAILY RAINE Rx#:[id number] Valproate Sodium 500 mg 50 In Sodium Chloride 0.9% 50 ml @ 50 mls/hr IVPB TID RAINE Rx#:[id number] Valproate Sodium 750 mg 50 50 In Sodium Chloride 0.9% 50 ml @ 50 mls/hr IVPB TID RAINE Rx#:[id number] Tube Feeding 672 294 Other 90 Output: Urine 375 321 50 Other: Voiding Method Indwelling Catheter Indwelling Catheter # Bowel Movements 1 1 ABP, PAP, CO, CI - Last Documented Arterial Blood Pressure 146/58 - Exam No acute distress, with an oral endotracheal tube and NG tube in place. No gag reflex. HEENT examination is grossly unremarkable. Mucous membranes are moist. Pupils midpoint and very sluggishly reactive. No corneal reflex. Neck supple. Full range of motion. No adenopathy thyromegaly or neck vein distention. Cardiovascular examination reveals regular rhythm rate. S1-S2 normal. No S3 or S4. No discernible murmur noted. Heart sounds are distant. Lungs reveal bilateral coarse rhonchi. There is also bilateral crackles. Her sounds. Worse today than yesterday. No wheezes. Breath sounds equal bilaterally. Abdomen soft bowel sounds are heard. No masses or tenderness. Extremities are intact. No cyanosis clubbing or edema. Skin is without rash or lesion. Neurologic examination is difficult to assess. The patient does not have a gag. Doll's eyes are difficult to determine. The patient does have an occasional triggering of the ventilator. Pupillary reflexes are sluggish. No response to pain or verbal stimuli. Neurologic examination is essentially unchanged. - Labs CBC & Chem 7: 02/26/18 04:35 02/26/18 04:35 Labs: Abnormal Lab Results - Last 24 Hours (Table) 02/25/18 02/25/18 02/25/18 Range/Units 08:31 11:48 15:49 WBC (3.8-10.6) k/uL RBC (4.30-5.90) m/uL Hgb (13.0-17.5) gm/dL Hct (39.0-53.0) % Neutrophils # (1.3-7.7) k/uL Lymphocytes # (1.0-4.8) k/uL ABG HCO3 (21-25) mmol/L ABG Total CO2 (19-24) mmol/L ABG O2 Saturation (94-97) % BUN (9-20) mg/dL Creatinine (0.66-1.25) mg/dL Glucose (74-99) mg/dL POC Glucose (mg/dL) 215 H 243 H 217 H (75-99) mg/dL Phosphorus (2.5-4.5) mg/dL Magnesium (1.6-2.3) mg/dL Total Protein (6.3-8.2) g/dL Albumin (3.5-5.0) g/dL 02/25/18 02/25/18 02/26/18 Range/Units 19:58 23:22 04:31 WBC (3.8-10.6) k/uL RBC (4.30-5.90) m/uL Hgb (13.0-17.5) gm/dL Hct (39.0-53.0) % Neutrophils # (1.3-7.7) k/uL Lymphocytes # (1.0-4.8) k/uL ABG HCO3 (21-25) mmol/L ABG Total CO2 (19-24) mmol/L ABG O2 Saturation (94-97) % BUN (9-20) mg/dL Creatinine (0.66-1.25) mg/dL Glucose (74-99) mg/dL POC Glucose (mg/dL) 207 H 226 H 276 H (75-99) mg/dL Phosphorus (2.5-4.5) mg/dL Magnesium (1.6-2.3) mg/dL Total Protein (6.3-8.2) g/dL Albumin (3.5-5.0) g/dL 02/26/18 02/26/18 02/26/18 Range/Units 04:35 04:35 04:57 WBC 11.1 H (3.8-10.6) k/uL RBC 2.48 L (4.30-5.90) m/uL Hgb 7.4 L (13.0-17.5) gm/dL Hct 23.6 L (39.0-53.0) % Neutrophils # 9.8 H (1.3-7.7) k/uL Lymphocytes # 0.6 L (1.0-4.8) k/uL ABG HCO3 29 H (21-25) mmol/L ABG Total CO2 31 H (19-24) mmol/L ABG O2 Saturation 97.6 H (94-97) % BUN 131 H* (9-20) mg/dL Creatinine 6.60 H (0.66-1.25) mg/dL Glucose 255 H (74-99) mg/dL POC Glucose (mg/dL) (75-99) mg/dL Phosphorus 7.4 H (2.5-4.5) mg/dL Magnesium 2.5 H (1.6-2.3) mg/dL Total Protein 5.9 L (6.3-8.2) g/dL Albumin 2.7 L (3.5-5.0) g/dL 02/26/18 Range/Units 07:30 WBC (3.8-10.6) k/uL RBC (4.30-5.90) m/uL Hgb (13.0-17.5) gm/dL Hct (39.0-53.0) % Neutrophils # (1.3-7.7) k/uL Lymphocytes # (1.0-4.8) k/uL ABG HCO3 (21-25) mmol/L ABG Total CO2 (19-24) mmol/L ABG O2 Saturation (94-97) % BUN (9-20) mg/dL Creatinine (0.66-1.25) mg/dL Glucose (74-99) mg/dL POC Glucose (mg/dL) 214 H (75-99) mg/dL Phosphorus (2.5-4.5) mg/dL Magnesium (1.6-2.3) mg/dL Total Protein (6.3-8.2) g/dL Albumin (3.5-5.0) g/dL Microbiology - Last 24 Hours (Table) 02/24/18 05:25 Blood Culture - Preliminary Blood No Growth after 48 hours 02/24/18 05:07 Blood Culture - Preliminary Blood No Growth after 48 hours 02/19/18 23:29 Blood Culture - Preliminary Blood No Growth after 120 hours 02/24/18 06:07 Urine Culture - Final Urine,Catheterized 02/24/18 05:35 Gram Stain - Preliminary Sputum Sputum Culture - Preliminary Gram Neg Bacilli Presumptive Staph aureus 02/24/18 03:05 Gram Stain - Final Catheter Site Wound Culture - Final Assessment and Plan Assessment: Assessment Acute pulmonary edema with hypoxemic respiratory failure secondary to diastolic dysfunction Intubation with mechanical ventilation on February 20 for respiratory failure Profound hypoglycemia on presentation Significant anoxic/metabolic encephalopathy. 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 History of hepatitis C infection History of chronic liver disease History of gout History of deep venous thrombosis History of chronic back pain Remote history of IV drug abuse History of hypertensive urgency Stage V chronic kidney disease Penile discharge, rule out bacterial urethritis Plan: Plan dated 02/24/2018 CODE STATUS will have to be addressed in this individual. The patient's mental status is very poor as mentioned above. If the family wants to continue with life support, the patient will need an early tracheostomy and PEG tube placement. The patient could then be sent to select specialty or some sort of chronic ventilator facility. In addition, if the patient does not want this, we might consider terminal weaning. CODE STATUS needs to be addressed so. Microbiology is negative. White count 11.2, hemoglobin 7.8, hematocrit 24.5, and platelet count is normal. In addition, sodium potassium chloride CO2 normal. Anion gap a bit high at 14. BUN and creatinine were 106 and 5.91. Closed his baseline and he has not required hemodialysis. Medications are reviewed. Chest x-ray shows bilateral small effusions. Again overall prognosis remains extremely poor. Medications are reviewed. Critical care time 33 minutes Plan dated 02/25/2018 I spent a long time talking to the sister yesterday. Unfortunately, she would like the patient to have a tracheostomy and PEG tube placement hoping they on hold but the patient will recover neurologic function. We'll consult one of the surgeons for that. In addition, the patient was started on Rocephin for a purulent penile discharge. The patient remains on my support. Neurologic examination is poor. EEG is consistent with profound anoxic/metabolic encephalopathy. White count 15, hemoglobin 7.8, hematocrit 24.8 and platelet count 341,000. Sodium potassium chloride CO2 all normal. Anion gap normal. BUN 116 with creatinine 6.30. Thus far, all microbiologic studies are negative. Again, the patient was started on Rocephin for a purulent penile discharge. Repeat cultures have been done. Medications labs and x-rays are all reviewed. Critical care time 33 minutes Plan dated 02/26/2018 The patient is apparently scheduled to have a hemodialysis catheter placed today and have hemodialysis today. He does need that. Obviously, the PEG and trach cannot be done until tomorrow. We'll resume his tube feeds. Currently remains on the ventilator. Neurologic examination is unchanged. Sputum showing gram-negative bacilli and presumptive staph. Chest x-ray shows diffuse bilateral infiltrates. White count 11.1 hemoglobin 7.4 hematocrit 23.6 and platelet count 308,000. Sodium potassium chloride CO2 all normal. Anion gap is 11. BUN was 131 with a creatinine of 6.60. Yesterday, BUN was 116 with a creatinine of 6.30. Medications, labs, and x-rays all reviewed. Diagnosis is very poor. We will continue to follow. His sister is okay with tracheostomy and PEG tube placement and long-term placement in a ventilator facility. Critical care time 34 minutes Time with Patient: Greater than 30
[2018-02-26] MEDS: CALCIUM ACETATE 667 MG CAP PO SCH ×3 (08:56→17:56)
[2018-02-26] MEDS: amLODIPine 10 MG TAB PO SCH (08:57)
[2018-02-26] MEDS: CHLORHEXIDINE GLUCONATE 15 ML CUP MUCOUS MEM SCH ×2 (08:57→20:33)
[2018-02-26] MEDS: FUROSEMIDE 10 MG/ML 10 ML VIAL IV SCH ×2 (08:57→20:33)
[2018-02-26] MEDS: THIAMINE 100 MG/ML 2 ML VIAL IVP SCH (08:58)
[2018-02-26] MEDS: LABETALOL 200 MG TAB PO SCH ×3 (08:58→21:58)
[2018-02-26] MEDS: GABAPENTIN 100 MG CAP PO SCH ×3 (08:58→21:58)
[2018-02-26] MEDS: TAMSULOSIN 0.4 MG CAP.ER.24H PO SCH (09:19)
[2018-02-26] MEDS: SODIUM BICARBONATE TAB 650 MG TAB PO SCH (09:20)
[2018-02-26] MEDS: VALPROATE SODIUM 750 MG in SODIUM CHLORIDE 0.9% 50 ML IVPB SCH ×3 (09:51→21:58)
[2018-02-26] MEDS: PANTOPRAZOLE 40 MG/10 ML VIAL IVP SCH (09:51)
--- NOTE | 2018-02-26 10:36 | P.PN ---
Subjective Patient is seen in follow-up for acute kidney injury on chronic kidney disease. Patient has chronic kidney disease stage IV secondary to biopsy-proven diabetic kidney disease with severe chronicity. His baseline creatinine has been in the range of 4-5. Creatinine was 7.65 on admission and did come down to 5.91 as of 02/24 - it is up to 6.6 today. Patient was noted to have volume overload with generalized anasarca and is currently maintained on Lasix 80 mg IV two times daily. He is nonoliguric. Currently intubated. Patient is not responding much to stimuli and there is concern for anoxic injury. Scheduled for trach and PEG tomorrow. Vital signs are stable. General: The patient appeared well nourished and normally developed. Intubated. HEENT: Head exam is unremarkable. Neck is without jugular venous distension. LUNGS: Breath sounds decreased. HEART: Rate and Rhythm are regular. First and second heart sounds normal. No murmurs, rubs or gallops. ABDOMEN: Abdominal exam reveals normal bowel sounds. Non-tender and non- distended. No evidence of peritonitis. EXTREMITITES: No clubbing, cyanosis, or edema. Right BKA noted. Objective - Vital Signs Vital signs: Vital Signs Temp 100.2 F H 02/26/18 08:00 Pulse 77 02/26/18 09:00 Resp 17 02/26/18 09:00 BP 168/83 02/26/18 07:00 Pulse Ox 100 02/26/18 09:00 Intake & Output 02/25/18 02/26/18 02/26/18 18:59 06:59 18:59 Intake Total 1238 620 46 Output Total 375 321 50 Balance 863 299 -4 Weight 78.8 kg 77.4 kg Intake: IV 476 326 46 NS 240 240 40 Pressure bag 36 36 6 Sodium Ferric Gluconat- 100 Sucrose 125 mg In Sodium Chloride 0.9% 100 ml @ 100 mls/hr IVPB DAILY RAINE Rx#:[id number] Valproate Sodium 500 mg 50 In Sodium Chloride 0.9% 50 ml @ 50 mls/hr IVPB TID RAINE Rx#:[id number] Valproate Sodium 750 mg 50 50 In Sodium Chloride 0.9% 50 ml @ 50 mls/hr IVPB TID RAINE Rx#:[id number] Tube Feeding 672 294 Other 90 Output: Urine 375 321 50 Other: Voiding Method Indwelling Catheter Indwelling Catheter # Bowel Movements 1 1 ABP, PAP, CO, CI - Last Documented Arterial Blood Pressure 135/54 - Labs CBC & Chem 7: 02/26/18 04:35 02/26/18 04:35 Labs: Abnormal Lab Results - Last 24 Hours (Table) 02/25/18 02/25/18 02/25/18 Range/Units 11:48 15:49 19:58 WBC (3.8-10.6) k/uL RBC (4.30-5.90) m/uL Hgb (13.0-17.5) gm/dL Hct (39.0-53.0) % Neutrophils # (1.3-7.7) k/uL Lymphocytes # (1.0-4.8) k/uL ABG HCO3 (21-25) mmol/L ABG Total CO2 (19-24) mmol/L ABG O2 Saturation (94-97) % BUN (9-20) mg/dL Creatinine (0.66-1.25) mg/dL Glucose (74-99) mg/dL POC Glucose (mg/dL) 243 H 217 H 207 H (75-99) mg/dL Phosphorus (2.5-4.5) mg/dL Magnesium (1.6-2.3) mg/dL Total Protein (6.3-8.2) g/dL Albumin (3.5-5.0) g/dL 02/25/18 02/26/18 02/26/18 Range/Units 23:22 04:31 04:35 WBC (3.8-10.6) k/uL RBC (4.30-5.90) m/uL Hgb (13.0-17.5) gm/dL Hct (39.0-53.0) % Neutrophils # (1.3-7.7) k/uL Lymphocytes # (1.0-4.8) k/uL ABG HCO3 (21-25) mmol/L ABG Total CO2 (19-24) mmol/L ABG O2 Saturation (94-97) % BUN 131 H* (9-20) mg/dL Creatinine 6.60 H (0.66-1.25) mg/dL Glucose 255 H (74-99) mg/dL POC Glucose (mg/dL) 226 H 276 H (75-99) mg/dL Phosphorus 7.4 H (2.5-4.5) mg/dL Magnesium 2.5 H (1.6-2.3) mg/dL Total Protein 5.9 L (6.3-8.2) g/dL Albumin 2.7 L (3.5-5.0) g/dL 02/26/18 02/26/18 02/26/18 Range/Units 04:35 04:57 07:30 WBC 11.1 H (3.8-10.6) k/uL RBC 2.48 L (4.30-5.90) m/uL Hgb 7.4 L (13.0-17.5) gm/dL Hct 23.6 L (39.0-53.0) % Neutrophils # 9.8 H (1.3-7.7) k/uL Lymphocytes # 0.6 L (1.0-4.8) k/uL ABG HCO3 29 H (21-25) mmol/L ABG Total CO2 31 H (19-24) mmol/L ABG O2 Saturation 97.6 H (94-97) % BUN (9-20) mg/dL Creatinine (0.66-1.25) mg/dL Glucose (74-99) mg/dL POC Glucose (mg/dL) 214 H (75-99) mg/dL Phosphorus (2.5-4.5) mg/dL Magnesium (1.6-2.3) mg/dL Total Protein (6.3-8.2) g/dL Albumin (3.5-5.0) g/dL Microbiology - Last 24 Hours (Table) 02/24/18 05:35 Gram Stain - Final Sputum Sputum Culture - Final Serratia marcescens Staphylococcus aureus 02/24/18 05:25 Blood Culture - Preliminary Blood No Growth after 48 hours 02/24/18 05:07 Blood Culture - Preliminary Blood No Growth after 48 hours 02/19/18 23:29 Blood Culture - Preliminary Blood No Growth after 120 hours 02/24/18 06:07 Urine Culture - Final Urine,Catheterized 02/24/18 03:05 Gram Stain - Final Catheter Site Wound Culture - Final Assessment and Plan Plan: Assessment: 1. Acute kidney injury secondary to ATN secondary to cardiorenal syndrome. Creatinine 7.65 on admission and did come down to 5.9 this admission. It is up to 6.6 today. 2. Chronic kidney disease stage IV with baseline creatinine in the range of 4- 5. Etiology is biopsy proven diabetic kidney disease. He is noted to have severe chronicity. 3. Hyperkalemia secondary to acute kidney injury. Improved with medical management. 4. Insulin-dependent diabetes mellitus. 5. Hypertension with chronic kidney disease. 5. Volume overload. Improving. 6. Diastolic CHF. 7. Acute hypoxic respiratory failure currently intubated. 8. Anemia of chronic kidney disease. Iron deficiency noted. Status post 3 doses of IV iron. 9. History of hepatitis C. He was to follow-up with GI as outpatient. 10. Hyperphosphatemia secondary to acute kidney injury maintained on PhosLo. Expect improvement post-HD. 11. Seizure which appears to be due to hypoglycemia. Neurology following. Concern for anoxia. Plan: Maintain Lasix 80 mg IV twice daily. Avoid nephrotoxins. Strict I's and O's. Decreased dose of Neurontin to 100 mg 3 times daily. Wean FiO2. Patient seems to have progressed to chronic kidney disease stage V with no significant improvement in his renal function this admission. Family has decided to proceed with trach and PEG. Femoral catheter placed today - first HD today and second treatment tomorrow. Will need P-cath once extubated.
--- NOTE | 2018-02-26 11:30 | CONS ---
DATE OF CONSULTATION: 02/26/2018 This is a 67-year-old gentleman who has history of diabetes, history of chronic renal failure, history of COPD, history of hypertension, history of liver disease, history of prostate disorder, Patient has been admitted with high BUN and creatinine. I was consulted for placement of urgent dialysis catheter. PAST HISTORY: Patient had a right BK amputation in the past. The patient also had a liver biopsy in [place], fractured left hip, bilateral total knee replacement in the past, right owing on her inguinal hernia surgery done x2 in the past. PHYSICAL EXAMINATION: Patient was seen in his room. Patient has been intubated. Femoral pulses are palpable bilateral. PLAN: Placement of the dialysis catheter. Risks and complications have been discussed. DONNAL / TONN: [id number] / MTDSom
--- NOTE | 2018-02-26 11:36 | PCN ---
PROCEDURE NOTE PREOPERATIVE DIAGNOSIS: Acute on chronic renal failure. PROCEDURE: Dialysis catheter placed right femoral approach. PROCEDURE: The patient was seen in the intensive care unit. The patient has been intubated. The right groin was prepped and draped in the usual sterile manner. Patient has a 2+ femoral artery palpable. Right groin was prepped and draped in the usual sterile manner and 1% lidocaine for infiltrated in the right groin area. After that, we passed a micropuncture guidewire through the needle and a 4-Chinese dilator advanced on the top of the guidewire. After that, we passed a regular guidewire and dilator was advanced and a 20 cm dialysis catheter placed. A good flow noted, flushed with heparin saline and secured with 3-0 nylon. Dressing applied. Patient tolerated the procedure well. MMODL / IJN: [id number] /
[2018-02-26 12:07] LABS: Glucose,Whole Blood 167 mg/dL (75-99)
--- NOTE | 2018-02-26 12:32 | P.PN ---
Subjective Patient is a 67-year-old -[place] male who is being followed by the neurology service for possible seizure. Patient was brought to [facility] emergency room with shortness of breath. He was found to have significant pulmonary edema. Patient does have stage IV chronic kidney disease. Patient was being treated in the emergency room when one of the nurses noted patient to be unresponsive. Patient had questionable jerking activity. Patient had significant hypoglycemia in the 20s. He was given D50, intubated and sedated. Patient is currently in the ICU. Computed tomography scan of the brain was done which showed no acute abnormality. Computed tomography scan did show evidence of mild generalized atrophy. Patient was noted to have some rhythmic jerking. Patient was taken off propofol and had an EEG done. EEG showed generalized slowing of the background rhythm. EEG also showed significant triphasic waves which is commonly seen in hepatic pathology. Myoclonic activity was described. Patient was started on Depakote 500 mg every 12 hours IV. Staff reports no further jerking movements since starting Depakote. Patient remains sedated with propofol and on mechanical ventilation. acute kidney injury on chronic kidney disease. Patient has chronic kidney disease stage IV secondary to biopsy-proven diabetic kidney disease with severe chronicity. His baseline creatinine has been in the range of 4-5. Creatinine was 7.65 on admission 02/23/2018 this is my first day taking care of the pt , pt is still on vent , he has been off sedation , however he is still not waking up as expected . pt could have metabolic encephalopathy , vs other . pt with acute on chronic Kidney disease stage IV. nephrology are following the case .Creatinine was 7.65 on admission and is 5.99 today. pt is been seen by neurology who recommended to repeat the EEG and result is pending.pt had subtherapeutic level and extra doses were provided for him yesterday EEG from 02/21: abnormal with significant triphasic waves which is commonly seen in hepatic encephalopahty pt still does not respond to pain stimuli. despite been off sedation since this morning. pupils are equal and reactive to light, meningeal signs were absent when i examined the pt this morning pt has h/o Hep C and B , we will check ammonia level and other work up like B12 ,thyroid function test, syphlis screen ,repeat CT of the head ,with neurology follow up. no fever , no leukocytosis 02/24/2018 no change from yesterday in his mental status from the first time a saw her , still unresponsive , neurologist team is following the pt and recommended repeat EEG. critical care input is appreciated . ammonia level and TSH were negative , repeat CT head is negative for acute process as well 02/25/2018 Patient remains unresponsive as before. Repeat EEG showing moderate encephalopathy, significant triphasic waves consistent with hepatic disease. Occasional sharp wave consistent with due to seizure threshold. But no generalized epileptiform discharge. Patient is a plan to have trach placed on the surgical site. As well as dialysis catheter for dialysis. Patient has Delcid catheter with 40 mL in the bag. There is purulent discharge from the penis. Discussed with staff. Check culture for the discharge, change. AND CHECK BLADDER SCAN 02/26/2018 Patient remains unresponsive, the same. Patient had a dialysis catheter placed. Than his going for hemodialysis currently. Patient has been evaluated by steel manager on their input is appreciated. Patient is planned for going for PEG and tracheostomy possibly tomorrow, as per family wishes. To call care consult is appreciated. He has positive sputum culture was fracture and staphylococcus. urine discharge so there was has been changed. Urine culture is pending. We'll consult infectious diseases specialist. Patient with mild leukocytosis Review of system: N/a Medication with dosages were reviewed including Tylenol 325 mg, Monica up 0.5-3 mg. Norvasc 10 mg. Lipitor 10 mg. Calcium acetate 667 mg. Ceftriaxone 1000 mg. Chlorhexidine. Clonidine 0.3 mg patch. Lasix 8 mg. Neurontin 100 mg. Heparin 5000 unit. Hydralazine 40 mg. NovoLog sliding scale. Labetalol 400 mg. Narcan 0.2 mg. protonix 40 mg. propofol on hold. sodium bicarb 650 mg. flomax 0.4 mg. thiamine 100 mg. valproic acid 750 mg. Objective - Vital Signs Vital signs: Vital Signs Temp 98.6 F 02/26/18 12:00 Pulse 69 02/26/18 12:00 Resp 15 02/26/18 12:00 BP 168/83 02/26/18 07:00 Pulse Ox 99 02/26/18 12:00 Intake & Output 02/25/18 02/26/18 02/26/18 18:59 06:59 18:59 Intake Total 1238 620 636 Output Total 375 321 132 Balance 863 299 504 Weight 78.8 kg 77.4 kg Intake: IV 476 326 188 NS 240 240 120 Pressure bag 36 36 18 Sodium Ferric Gluconat- 100 Sucrose 125 mg In Sodium Chloride 0.9% 100 ml @ 100 mls/hr IVPB DAILY [facility] Rx#:[id number] Valproate Sodium 500 mg 50 In Sodium Chloride 0.9% 50 ml @ 50 mls/hr IVPB TID [facility] Rx#:[id number] Valproate Sodium 750 mg 50 50 50 In Sodium Chloride 0.9% 50 ml @ 50 mls/hr IVPB TID [facility] Rx#:[id number] Intake, IV Titration 250 Amount Vancomycin 1,250 mg In 250 Sodium Chloride 0.9% 250 ml @ 125 mls/hr IVPB ONCE ONE Rx#:[id number] Tube Feeding 672 294 168 Other 90 30 Output: Urine 375 321 132 Other: Voiding Method Indwelling Catheter Indwelling Catheter # Bowel Movements 1 1 1 ABP, PAP, CO, CI - Last Documented Arterial Blood Pressure 125/58 - Exam -GENERAL: The patient is unresponsive , does not open eyes,intubated. not in any acute distress. Well developed, HEENT: Pupils are round and equally reacting to light. EOMI. No scleral icterus. No conjunctival pallor. Normocephalic, atraumatic. No pharyngeal erythema. No thyromegaly. CARDIOVASCULAR: S1 and S2 present. No murmurs, rubs, or gallops. -PULMONARY: Chest is clear to auscultation, no wheezing. Bilateral scattered crackles. ABDOMEN: Soft, nontender, nondistended, normoactive bowel sounds. No palpable organomegaly. MUSCULOSKELETAL: No joint swelling or deformity. EXTREMITIES: No cyanosis, clubbing, or pedal edema. -s/p right BKA -NEUROLOGICAL: unresponsive to verbal or painful stinuli, does not open eyes. SKIN: No rashes. - Labs CBC & Chem 7: 02/26/18 04:35 02/26/18 04:35 Labs: Abnormal Lab Results - Last 24 Hours (Table) 02/25/18 02/25/18 02/25/18 Range/Units 15:49 19:58 23:22 WBC (3.8-10.6) k/uL RBC (4.30-5.90) m/uL Hgb (13.0-17.5) gm/dL Hct (39.0-53.0) % Neutrophils # (1.3-7.7) k/uL Lymphocytes # (1.0-4.8) k/uL ABG HCO3 (21-25) mmol/L ABG Total CO2 (19-24) mmol/L ABG O2 Saturation (94-97) % BUN (9-20) mg/dL Creatinine (0.66-1.25) mg/dL Glucose (74-99) mg/dL POC Glucose (mg/dL) 217 H 207 H 226 H (75-99) mg/dL Phosphorus (2.5-4.5) mg/dL Magnesium (1.6-2.3) mg/dL Total Protein (6.3-8.2) g/dL Albumin (3.5-5.0) g/dL 02/26/18 02/26/18 02/26/18 Range/Units 04:31 04:35 04:35 WBC 11.1 H (3.8-10.6) k/uL RBC 2.48 L (4.30-5.90) m/uL Hgb 7.4 L (13.0-17.5) gm/dL Hct 23.6 L (39.0-53.0) % Neutrophils # 9.8 H (1.3-7.7) k/uL Lymphocytes # 0.6 L (1.0-4.8) k/uL ABG HCO3 (21-25) mmol/L ABG Total CO2 (19-24) mmol/L ABG O2 Saturation (94-97) % BUN 131 H* (9-20) mg/dL Creatinine 6.60 H (0.66-1.25) mg/dL Glucose 255 H (74-99) mg/dL POC Glucose (mg/dL) 276 H (75-99) mg/dL Phosphorus 7.4 H (2.5-4.5) mg/dL Magnesium 2.5 H (1.6-2.3) mg/dL Total Protein 5.9 L (6.3-8.2) g/dL Albumin 2.7 L (3.5-5.0) g/dL 02/26/18 02/26/18 02/26/18 Range/Units 04:57 07:30 12:05 WBC (3.8-10.6) k/uL RBC (4.30-5.90) m/uL Hgb (13.0-17.5) gm/dL Hct (39.0-53.0) % Neutrophils # (1.3-7.7) k/uL Lymphocytes # (1.0-4.8) k/uL ABG HCO3 29 H (21-25) mmol/L ABG Total CO2 31 H (19-24) mmol/L ABG O2 Saturation 97.6 H (94-97) % BUN (9-20) mg/dL Creatinine (0.66-1.25) mg/dL Glucose (74-99) mg/dL POC Glucose (mg/dL) 214 H 167 H (75-99) mg/dL Phosphorus (2.5-4.5) mg/dL Magnesium (1.6-2.3) mg/dL Total Protein (6.3-8.2) g/dL Albumin (3.5-5.0) g/dL Microbiology - Last 24 Hours (Table) 02/19/18 23:29 Blood Culture - Final Blood No Growth after 144 hours 02/24/18 05:35 Gram Stain - Final Sputum Sputum Culture - Final Serratia marcescens Staphylococcus aureus 02/24/18 05:25 Blood Culture - Preliminary Blood No Growth after 48 hours 02/24/18 05:07 Blood Culture - Preliminary Blood No Growth after 48 hours 02/24/18 06:07 Urine Culture - Final Urine,Catheterized 02/24/18 03:05 Gram Stain - Final Catheter Site Wound Culture - Final Assessment and Plan Plan: Assessment and Plan -Acute hypoxic respiratory failure: Secondary to congestive heart failure chronic diastolic dysfunction with acute exacerbation patient was started on high-dose of Lasix. Continuing with the ventilatory support, diurese well improved creatinine with Lasix. Improving -possible seizure related to low glu , neurology team is following the pt , on depakote and level checked as per neuro team recommendation -acute on chronic renal failure , f/u with nephrology -metabolic encephalopathy , possibly secondary to all above -Ventilator dependent respiratory failure -Acute renal failure: Believed to be secondary to cardiorenal syndrome improved with Lasix -Hyperkalemia secondary to acute renal failure and chronic kidney disease, treatment as mentioned above with albuterol and Kayexlate, improved now and nephrology is following the patient -Chronic kidney disease stage IV -Hyperkalemia secondary to acute renal failure -Anemia of of chronic kidney disease -Peripheral vascular disease -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 -Hypotension is possibly secondary to sedation antidepressive medications will be held and restarted as needed. Hyperlipidemia -Episode of seizure believed to be secondary to hypoglycemia and encephalopathy EEG showed diffuse slowing. patient has metabolic and toxic encephalopathy -Possible [place] discharge from the penile orifice. Culture: Pending DVT and GI px. pt is on heparin and protonix prognosis is guarded
--- NOTE | 2018-02-26 12:40 | P.PN ---
Subjective Progress Note Date: 02/26/18 Principal diagnosis: Respiratory failure Patient remains ventilated. Hemodialysis catheter was placed yesterday. Patient receiving dialysis currently. Objective - Vital Signs Vital signs: Vital Signs Temp 98.6 F 02/26/18 12:00 Pulse 69 02/26/18 12:00 Resp 15 02/26/18 12:00 BP 168/83 02/26/18 07:00 Pulse Ox 99 02/26/18 12:00 Intake & Output 02/25/18 02/26/18 02/26/18 18:59 06:59 18:59 Intake Total 1238 620 636 Output Total 375 321 132 Balance 863 299 504 Weight 78.8 kg 77.4 kg Intake: IV 476 326 188 NS 240 240 120 Pressure bag 36 36 18 Sodium Ferric Gluconat- 100 Sucrose 125 mg In Sodium Chloride 0.9% 100 ml @ 100 mls/hr IVPB DAILY [facility] Rx#:[id number] Valproate Sodium 500 mg 50 In Sodium Chloride 0.9% 50 ml @ 50 mls/hr IVPB TID [facility] Rx#:[id number] Valproate Sodium 750 mg 50 50 50 In Sodium Chloride 0.9% 50 ml @ 50 mls/hr IVPB TID [facility] Rx#:[id number] Intake, IV Titration 250 Amount Vancomycin 1,250 mg In 250 Sodium Chloride 0.9% 250 ml @ 125 mls/hr IVPB ONCE ONE Rx#:[id number] Tube Feeding 672 294 168 Other 90 30 Output: Urine 375 321 132 Other: Voiding Method Indwelling Catheter Indwelling Catheter # Bowel Movements 1 1 1 ABP, PAP, CO, CI - Last Documented Arterial Blood Pressure 125/58 - Exam Abdomen: Soft, nontender, nondistended - Labs CBC & Chem 7: 02/26/18 04:35 02/26/18 04:35 Labs: Abnormal Lab Results - Last 24 Hours (Table) 02/25/18 02/25/18 02/25/18 Range/Units 15:49 19:58 23:22 WBC (3.8-10.6) k/uL RBC (4.30-5.90) m/uL Hgb (13.0-17.5) gm/dL Hct (39.0-53.0) % Neutrophils # (1.3-7.7) k/uL Lymphocytes # (1.0-4.8) k/uL ABG HCO3 (21-25) mmol/L ABG Total CO2 (19-24) mmol/L ABG O2 Saturation (94-97) % BUN (9-20) mg/dL Creatinine (0.66-1.25) mg/dL Glucose (74-99) mg/dL POC Glucose (mg/dL) 217 H 207 H 226 H (75-99) mg/dL Phosphorus (2.5-4.5) mg/dL Magnesium (1.6-2.3) mg/dL Total Protein (6.3-8.2) g/dL Albumin (3.5-5.0) g/dL 02/26/18 02/26/18 02/26/18 Range/Units 04:31 04:35 04:35 WBC 11.1 H (3.8-10.6) k/uL RBC 2.48 L (4.30-5.90) m/uL Hgb 7.4 L (13.0-17.5) gm/dL Hct 23.6 L (39.0-53.0) % Neutrophils # 9.8 H (1.3-7.7) k/uL Lymphocytes # 0.6 L (1.0-4.8) k/uL ABG HCO3 (21-25) mmol/L ABG Total CO2 (19-24) mmol/L ABG O2 Saturation (94-97) % BUN 131 H* (9-20) mg/dL Creatinine 6.60 H (0.66-1.25) mg/dL Glucose 255 H (74-99) mg/dL POC Glucose (mg/dL) 276 H (75-99) mg/dL Phosphorus 7.4 H (2.5-4.5) mg/dL Magnesium 2.5 H (1.6-2.3) mg/dL Total Protein 5.9 L (6.3-8.2) g/dL Albumin 2.7 L (3.5-5.0) g/dL 02/26/18 02/26/18 02/26/18 Range/Units 04:57 07:30 12:05 WBC (3.8-10.6) k/uL RBC (4.30-5.90) m/uL Hgb (13.0-17.5) gm/dL Hct (39.0-53.0) % Neutrophils # (1.3-7.7) k/uL Lymphocytes # (1.0-4.8) k/uL ABG HCO3 29 H (21-25) mmol/L ABG Total CO2 31 H (19-24) mmol/L ABG O2 Saturation 97.6 H (94-97) % BUN (9-20) mg/dL Creatinine (0.66-1.25) mg/dL Glucose (74-99) mg/dL POC Glucose (mg/dL) 214 H 167 H (75-99) mg/dL Phosphorus (2.5-4.5) mg/dL Magnesium (1.6-2.3) mg/dL Total Protein (6.3-8.2) g/dL Albumin (3.5-5.0) g/dL Microbiology - Last 24 Hours (Table) 02/19/18 23:29 Blood Culture - Final Blood No Growth after 144 hours 02/24/18 05:35 Gram Stain - Final Sputum Sputum Culture - Final Serratia marcescens Staphylococcus aureus 02/24/18 05:25 Blood Culture - Preliminary Blood No Growth after 48 hours 02/24/18 05:07 Blood Culture - Preliminary Blood No Growth after 48 hours 02/24/18 06:07 Urine Culture - Final Urine,Catheterized 02/24/18 03:05 Gram Stain - Final Catheter Site Wound Culture - Final Assessment and Plan (1) Respiratory failure Narrative/Plan: Will proceed with tracheostomy and PEG tube placement tomorrow. Current Visit: Yes Status: Acute Code(s): J96.90 - RESPIRATORY FAILURE, UNSP , UNSP W HYPOXIA OR HYPERCAPNIA SNOMED Code(s): 267583853
[2018-02-26 15:39] LABS: Glucose,Whole Blood 188 mg/dL (75-99)
[2018-02-26] MEDS: CEFEPIME 1 GM in SODIUM CHLORIDE 0.9% 50 ML IVPB SCH (17:55)
--- NOTE | 2018-02-26 20:04 | P.PN ---
Subjective Progress Note Date: 02/26/18 Principal diagnosis: Seizure Neurology is following on a 67-year-old male procedures. Patient was seen in the ICU where he is intubated on mechanical ventilator. Patient continues to be unresponsive. He is unresponsive to deep pain. Patients Depakote level is currently therapeutic at 52.9. Patients EEG is abnormal and consistent with moderate encephalopathy. Patient continues to have significant triphasic waves which are consistent with hepatic disease. Occasional sharp wave activity is also seen which is consistent with reduced seizure threshold. At time of evaluation patient is in the ICU and is unresponsive. Patient did have sedation holiday earlier this morning with primary team and reporter and no new changes were noted. No family or other visitors were present in the room. Nursing reports no new changes in the past 24 hours. Patient is scheduled to have an EEG tomorrow, 02/26/18. Interval update 02/26/18: Patient was scheduled to have an EEG today, it was canceled. Patient is still in the ICU and is unresponsive on a ventilator. Nursing reports no neurological status changes in the last 24 hours. Neurology is still recommending a repeat EEG. Objective - Vital Signs Vital signs: Vital Signs Temp 99.3 F 02/26/18 15:00 Pulse 68 02/26/18 18:00 Resp 15 02/26/18 18:00 BP 168/83 02/26/18 07:00 Pulse Ox 99 02/26/18 18:00 Intake & Output 02/26/18 02/26/18 02/27/18 06:59 18:59 06:59 Intake Total 620 1076 Output Total 321 2179 Balance 299 -1103 Weight 77.4 kg 77.4 kg Intake: IV 326 346 NS 240 260 Pressure bag 36 36 Valproate Sodium 750 mg 50 50 In Sodium Chloride 0.9% 50 ml @ 50 mls/hr IVPB TID [facility] Rx#:[id number] Intake, IV Titration 250 Amount Vancomycin 1,250 mg In 250 Sodium Chloride 0.9% 250 ml @ 125 mls/hr IVPB ONCE ONE Rx#:[id number] Tube Feeding 294 420 Other 60 Output: Urine 321 179 Other 2000 Other: Voiding Method Indwelling Catheter Indwelling Catheter # Bowel Movements 1 1 ABP, PAP, CO, CI - Last Documented Arterial Blood Pressure 132/57 - Exam General appearance: On mechanical ventilator Head: Atraumatic, normocephalic Eyes: Pupils sluggish Ear, nose and throat: Normal exam, mucous membranes moist Neck: Normal inspection, absent tenderness, lymphadenopathy. Respiratory: Mechanical ventilator and use Cardiovascular: Telemetry monitoring GI/abdominal: No guarding Extremities: Unable to move extremities, right lower extremity amputation Neurological: Full neurological status unable to be assessed due to patient being on a ventilator, does not respond to painful stimuli, slight gag reflex - Labs CBC & Chem 7: 02/26/18 04:35 02/26/18 04:35 Labs: Abnormal Lab Results - Last 24 Hours (Table) 02/25/18 02/25/18 02/26/18 Range/Units 19:58 23:22 04:31 WBC (3.8-10.6) k/uL RBC (4.30-5.90) m/uL Hgb (13.0-17.5) gm/dL Hct (39.0-53.0) % Neutrophils # (1.3-7.7) k/uL Lymphocytes # (1.0-4.8) k/uL ABG HCO3 (21-25) mmol/L ABG Total CO2 (19-24) mmol/L ABG O2 Saturation (94-97) % BUN (9-20) mg/dL Creatinine (0.66-1.25) mg/dL Glucose (74-99) mg/dL POC Glucose (mg/dL) 207 H 226 H 276 H (75-99) mg/dL Phosphorus (2.5-4.5) mg/dL Magnesium (1.6-2.3) mg/dL Total Protein (6.3-8.2) g/dL Albumin (3.5-5.0) g/dL 02/26/18 02/26/18 02/26/18 Range/Units 04:35 04:35 04:57 WBC 11.1 H (3.8-10.6) k/uL RBC 2.48 L (4.30-5.90) m/uL Hgb 7.4 L (13.0-17.5) gm/dL Hct 23.6 L (39.0-53.0) % Neutrophils # 9.8 H (1.3-7.7) k/uL Lymphocytes # 0.6 L (1.0-4.8) k/uL ABG HCO3 29 H (21-25) mmol/L ABG Total CO2 31 H (19-24) mmol/L ABG O2 Saturation 97.6 H (94-97) % BUN 131 H* (9-20) mg/dL Creatinine 6.60 H (0.66-1.25) mg/dL Glucose 255 H (74-99) mg/dL POC Glucose (mg/dL) (75-99) mg/dL Phosphorus 7.4 H (2.5-4.5) mg/dL Magnesium 2.5 H (1.6-2.3) mg/dL Total Protein 5.9 L (6.3-8.2) g/dL Albumin 2.7 L (3.5-5.0) g/dL 02/26/18 02/26/18 02/26/18 Range/Units 07:30 12:05 15:33 WBC (3.8-10.6) k/uL RBC (4.30-5.90) m/uL Hgb (13.0-17.5) gm/dL Hct (39.0-53.0) % Neutrophils # (1.3-7.7) k/uL Lymphocytes # (1.0-4.8) k/uL ABG HCO3 (21-25) mmol/L ABG Total CO2 (19-24) mmol/L ABG O2 Saturation (94-97) % BUN (9-20) mg/dL Creatinine (0.66-1.25) mg/dL Glucose (74-99) mg/dL POC Glucose (mg/dL) 214 H 167 H 188 H (75-99) mg/dL Phosphorus (2.5-4.5) mg/dL Magnesium (1.6-2.3) mg/dL Total Protein (6.3-8.2) g/dL Albumin (3.5-5.0) g/dL Microbiology - Last 24 Hours (Table) 02/19/18 23:29 Blood Culture - Final Blood No Growth after 144 hours 02/24/18 05:35 Gram Stain - Final Sputum Sputum Culture - Final Serratia marcescens Staphylococcus aureus 02/24/18 05:25 Blood Culture - Preliminary Blood No Growth after 48 hours 02/24/18 05:07 Blood Culture - Preliminary Blood No Growth after 48 hours Assessment and Plan (1) Seizure Current Visit: Yes Status: Acute Code(s): R56.9 - UNSPECIFIED CONVULSIONS SNOMED Code(s): 58896917 (2) Acute on chronic renal failure Current Visit: Yes Status: Acute Code(s): N17.9 - ACUTE KIDNEY FAILURE, UNSPECIFIED; N18.9 - CHRONIC KIDNEY DISEASE, UNSPECIFIED SNOMED Code(s): 810498855 (3) Respiratory failure Current Visit: Yes Status: Acute Code(s): J96.90 - RESPIRATORY FAILURE, UNSP , UNSP W HYPOXIA OR HYPERCAPNIA SNOMED Code(s): 600146416 (4) Altered mental status Current Visit: No Status: Acute Code(s): R41.82 - ALTERED MENTAL STATUS, UNSPECIFIED SNOMED Code(s): 773300472 (5) Chronic kidney disease Current Visit: No Status: Acute Code(s): N18.9 - CHRONIC KIDNEY DISEASE, UNSPECIFIED SNOMED Code(s): 283396362 Plan: Seizures appear possibly multifactorial in etiology and may include: Hypoglycemia, subtherapeutic medication level/Depakote. Patient does exhibit some characteristics of hypoxic encephalopathy and hypoglycemic encephalopathy as previously noted by other neurological provider. Chronic kidney disease is also an underlying contributory etiology as well. EEG notes significant changes with triphasic waves consistent with hepatic pathology. Depakote has already been increased to 750 mg IV 3 times a day. Depakote level has been noted to be therapeutic since medication change. Nursing reports no new seizure -like activity since change. Updated CT of the brain showed no acute findings. Trach and PEG evaluation is scheduled per nursing staff. Continue management per primary team. Neurology recommends updated EEG which has been canceled. Status: Neurology will continue to follow only on an "as needed basis". I have discussed the plan of care with the physician prior to implementation and he agrees with the plan as implemented.
[2018-02-26] MEDS: ATORVASTATIN 10 MG TAB PO SCH (20:33)
[2018-02-26 20:40] LABS: Glucose,Whole Blood 240 mg/dL (75-99)
--- NOTE | 2018-02-26 23:36 | CONS ---
CONSULTATION DATE OF SERVICE: 02/26/2018 REASON FOR CONSULTATION: Positive sputum culture and antibiotic recommendations. HISTORY OF PRESENT ILLNESS: The patient is a 67-year-old male who presented to the ER at [facility] on 02/19/2018 with the chief complaints of increasing shortness of breath, abdominal distention, no bowel movement for several days. The patient was complaining that it was hard for him to take a deep breath. With these symptoms, the patient was evaluated by the ER physician. The patient did have a chest x-ray showing pleural effusion, bilateral lower lobe pulmonary infiltrate. CT of abdomen and pelvis showed extensive subcutaneous edema consistent with anasarca, cardiomegaly, pleural effusion and atelectasis. The patient did go into respiratory distress and ended up getting intubated and has been treated in the ICU. The patient was noticed to have acute on chronic renal failure with worsening of his kidney function. The patient was afebrile on presentation. Subsequently he did spike a fever of 101.7 degrees Fahrenheit on 02/24/2018, for which the patient did have blood cultures drawn, which are currently negative. He also had blood cultures and sputum on admission and those were negative. Sputum has been collected which is now showing MSSA and Serratia marcescens. UA was negative. Patient's chest x-ray last completed on 02/23/2018 shows bibasilar airspace disease. I was asked to see the patient today for further recommendations regarding antibiotic therapy. The patient is currently on a combination of vancomycin, Pharmacy to dose, as well as Rocephin. Most of the information has been obtained from prior review of the chart, as the patient is currently intubated on the vent and unable to provide any history. REVIEW OF SYSTEMS: Could not be reliably obtained. The positive points have been mentioned in the HPI. PAST MEDICAL HISTORY: 1. COPD. 2. Diabetes mellitus. 3. DVT. 4. Gastroesophageal reflux disease. 5. Hypertension. 6. Hyperlipidemia. 7. PAD. 8. Pneumonia. 9. Right BKA wound infection with MRSA. PAST SURGICAL HISTORY: 1. Right BKA. 2. Fracture of the left hip with repair. 3. Left arm fracture repair. 4. Bilateral knee arthroscopy. 5. Right orbital reconstruction. SOCIAL HISTORY: Positive for smoking. Occasional cocaine use. No drinking. FAMILY HISTORY: Father with history of ulcers. Mother with history of diabetes. ALLERGIES: NO KNOWN DRUG ALLERGIES. CURRENT MEDICATIONS: 1. Rocephin 1 gram daily; started this morning. 2. He has been on vancomycin, Pharmacy to dose. 3. Valproic acid. 4. Flomax. 5. Propofol. 6. Protonix. 7. Narcan. 8. Labetalol. 9. NovoLog. 10.Hydralazine. 11.Heparin. 12.Neurontin. 13.Lasix. 14.PhosLo. 15.Lipitor. 16.Norvasc. 17.DuoNeb. PHYSICAL EXAMINATION: Blood pressure is 153/65 with a pulse of 73, temperature 98. He is 98% on 35% FiO2. General description is an elderly male lying in bed in no distress with no tachypnea or accessory muscle of respiration use. HEENT examination shows pallor. No scleral icterus. The patient is orally intubated. NECK: Trachea is central. No thyromegaly. LUNGS: Unlabored breathing with decreased breath sounds in the bases. No wheeze. HEART: S1, S2. Regular rate and rhythm. ABDOMEN: Soft. No tenderness. No guarding or rigidity. EXTREMITIES: No edema of feet. SKIN EXAMINATION: No rash or mass palpable. Neurologically patient is currently sedated on the vent. LABS: Hemoglobin 7.4, white count 11.1. BUN of 131, creatinine 6.60. Electrolytes have been normal. Urine has been negative. DIAGNOSTIC IMPRESSION AND PLAN: 1. Patient with a fever of 101 degrees Fahrenheit on 02/24/2018 with evidence of bibasilar infiltrate, mostly on the right side, in a patient who did have elevated white count. Sputum now showing Serratia marcescens and MSSA, likely a component of acute bacterial pneumonia with these two pathogens. 2. Patient with acute on chronic renal insufficiency and high risk of nephrotoxicity from the vancomycin. PLAN: 1. Discontinue vancomycin and Rocephin. 2. Will start the patient on cefepime 1 gram q.24. Dose has been adjusted to his kidney function to cover for both MSSA as well as Serratia marcescens. 3. We will follow up on his clinical condition and further cultures to further adjust medication if needed. Thank you for this consultation. Will follow this patient along with you. MMODL / IJN: [id number] /
[2018-02-27] MEDS: HEPARIN SODIUM,PORCINE 5,000 UNIT/ML 1 ML VIAL SQ SCH ×4 (00:07→23:42)
[2018-02-27] MEDS: INSULIN ASPART 100 UNIT/ML 1 ML 10 ML VIAL SQ SCH ×7 (00:12→23:48)
[2018-02-27 00:13] LABS: Glucose,Whole Blood 254 mg/dL (75-99)
[2018-02-27 03:15] LABS: Glucose,Whole Blood 241 mg/dL (75-99)
[2018-02-27] MEDS: IPRATROPIUM-ALBUTEROL 3 ML NEB INHALATION SCH ×6 (04:11→23:28)
[2018-02-27 05:06] LABS: Basophils % (A) 0 %; Eosinophils # (A) 0.1 k/uL (0-0.7); Eosinophils % (A) 1 %; HCT 22.9 % (39.0-53.0); HGB 7.1 gm/dL (13.0-17.5); Hypochromasia Moderate; Lymphocytes # (A) 0.7 k/uL (1.0-4.8); Lymphocytes % (A) 9 %; MCH 29.5 pg (25.0-35.0); MCHC 31.1 g/dL (31.0-37.0); MCV 95.1 fL (80.0-100.0); Mean Platelet Volume 7.4; Monocytes # (A) 0.4 k/uL (0-1.0); Monocytes % (A) 6 %; Neutrophils # (A) 6.8 k/uL (1.3-7.7); Neutrophils % (A) 84 %; Platelet Count 285 k/uL (150-450); WBC 8.1 k/uL (3.8-10.6)
[2018-02-27 05:12] LABS: Potassium 3.7 mmol/L (3.5-5.1)
[2018-02-27 05:13] LABS: Calcium 8.5 mg/dL (8.4-10.2); Magnesium 2.4 mg/dL (1.6-2.3); Phosphorus 6.3 mg/dL (2.5-4.5)
[2018-02-27 05:17] LABS: Valproic Acid (Depakene) 54.4 ug/mL
[2018-02-27 05:37] LABS: ABG Base Excess 5.3 mmol/L; ABG HCO3 29 mmol/L (21-25); ABG Oxygen Saturation 99.1 % (94-97); ABG PCO2 41 mmHg (35-45); ABG PH 7.46 (7.35-7.45); ABG PO2 107 mmHg (83-108); ABG TCO2 30 mmol/L (19-24)
[2018-02-27] MEDS ORDERED: VANCOMYCIN 1,250 MG in SODIUM CHLORIDE 0.9% 250 ML IVPB ONE (06:00)
[2018-02-27] MEDS: CALCIUM ACETATE 667 MG CAP PO SCH ×3 (07:50→17:27)
[2018-02-27 08:03] LABS: Glucose,Whole Blood 201 mg/dL (75-99)
[2018-02-27] MEDS: amLODIPine 10 MG TAB PO SCH (08:11)
[2018-02-27] MEDS: GABAPENTIN 100 MG CAP PO SCH ×3 (08:12→21:01)
[2018-02-27] MEDS: LABETALOL 200 MG TAB PO SCH ×3 (08:12→21:00)
[2018-02-27] MEDS: TAMSULOSIN 0.4 MG CAP.ER.24H PO SCH (08:14)
[2018-02-27] MEDS: SODIUM BICARBONATE TAB 650 MG TAB PO SCH (08:14)
[2018-02-27] MEDS: THIAMINE 100 MG/ML 2 ML VIAL IVP SCH (08:16)
[2018-02-27] MEDS: FUROSEMIDE 10 MG/ML 10 ML VIAL IV SCH ×2 (08:22→20:38)
[2018-02-27] MEDS: POTASSIUM CHLORIDE 20 MEQ in WATER FOR INJECTION 1 100ML.BAG IVPB SCH ×2 (08:25→14:53)
[2018-02-27] MEDS: VALPROATE SODIUM 750 MG in SODIUM CHLORIDE 0.9% 50 ML IVPB SCH ×3 (08:26→21:00)
[2018-02-27] MEDS: CHLORHEXIDINE GLUCONATE 15 ML CUP MUCOUS MEM SCH ×2 (08:34→20:39)
--- NOTE | 2018-02-27 08:48 | P.PN ---
Subjective Progress Note Date: 02/27/18 Principal diagnosis: Renal failure, respiratory failure, seizure, profound anoxic/metabolic encephalopathy. Progress note dated 02/24/2018 This is a 67-year-old male with a history of renal failure respiratory failure seizure disorder and significant anoxic/metabolic encephalopathy. The patient was admitted on the and intubated on the . He has not been on any sedation for more than 2 days. Unfortunately, the patient's mental status is extremely poor. He does not respond well to deep pain or any other stimuli for that matter. He does not have a gag reflex. His pupillary reflexes are very sluggish. He has been seen by neurology. A CT of the brain has been done 2. Also, the patient will have 2 EEGs. Currently, the patient is a full code. CODE STATUS does need to be addressed. The patient is on the ventilator. He is on the volume assist control mode, rate of 14, tidal volume 500, FiO2 35% and PEEP of 5. Blood gases are reasonable with a PaO2 of 89 a PaCO2 of 40 and a pH of 7.48. For blood pressure control, the patient's on labetalol, Norvasc, hydralazine, and Catapres patch. The chest x-ray shows bilateral effusions. Microbiology is negative. I did ask the nurse to call the family to discuss CODE STATUS. If they want continued full care, the patient should have a early tracheostomy and PEG tube placement. If not, terminal weaning would be appropriate in my opinion given his poor mental status. Progress note dated 02/25/2018 This is a 67-year-old black male with history of renal failure, respiratory failure, seizure disorder, and significant anoxic/metabolic encephalopathy. He was admitted on the and intubated on the for respiratory failure. He has not been on any sedatives hypnotics narcotics and tranquilizers for more than 2 days. The patient's mental status is extremely poor. He has not responded to deep pain or verbal stimuli. Pupils were midpoint and sluggishly reactive. There is no gag reflex. No corneal reflex. He does occasionally trigger the ventilator. He's had a CAT scan of the brain 2 and 3 EEGs. I had a long discussion with the patient's sister yesterday. She is currently about making the patient a comfort measures and allowing him to be taken off life support. She apparently had to make a decision to amputate his leg and for that reason, the patient's sister the preferred to proceed with tracheostomy and PEG tube and a chronic ventilator facility as opposed to comfort measures. The patient is suffering from significant penile discharge. It's very green and yellow and purulent looking. I added Rocephin this morning. Cultures have been done and are pending. Prognosis is extremely poor. Currently, he is on the volume assist control mode, rate of 14, tidal volume 500, FiO2 35% and PEEP of 5. Arterial blood gases show a PaO2 of 92 a PaCO2 of 44 and a pH of 7.46. The patient's IV is saline at 20 mL an hour. He is getting tube feeds. Progress note dated 02/26/2018 67-year-old black male with a history of respiratory failure renal fire seizure disorder and profound anoxic/metabolic encephalopathy. He was admitted back on February 19 and intubated on the for acute respiratory failure. The patient has not had any sedatives hypnotics narcotics tranquilizers for the last 3 or 4 days. The patient's mental status is extremely poor. He does not respond to deep pain or verbal stimuli. The patient does have sluggishly reactive pupils. There is no corneal reflex. There is no gag reflex. He does trigger the ventilator occasionally. He's had CAT scans of the brain and EEGs multiple times. I've had a discussion with the patient's sister. She feels that she wants to give the patient every chance to improve neurologically and is willing to proceed with tracheostomy and PEG tube placement despite my urgings otherwise. I told her that after tracheostomy and PEG tube placement, the patient would likely go to a specialized nursing facility or chronic ventilator management facility. She is okay with this. Currently, the patient' s on the volume assist control mode with a rate of 14, tidal [place] 500, FiO2 35% and PEEP of 5. Arterial blood gases show a PaO2 of 87.3 PaCO2 43 and a pH of 7.45. The patient's IV is saline at 20 mL an hour. Tube feeds are on hold for an anticipated trach and PEG today although on learning that possibly will be done until tomorrow. Sputum was positive for gram-negative bacilli and possible staph aureus. The patient's on Rocephin and vancomycin. Trach and PEG will be done either today or tomorrow. Prognosis is very poor. Progress note dated 02/27/2018 67-year-old black male with a history of respiratory failure, renal fire, seizure disorder and profound anoxic/metabolic encephalopathy. The patient was admitted on February 19 and intubated on the for acute respiratory failure. The patient has not required any sedatives hypnotics narcotics or tranquilizers for the last 4 or 5 days. The patient's mental status continues to be very poor. The patient does not respond to deep pain or verbal stimuli and has pupils which are sluggishly reactive. The patient does not have a corneal reflex or gag reflex. He does trigger the ventilator occasionally. He' s had multiple CAT scans of the brain and EEGs. The patient is going for tracheostomy and PEG tube placement today. This is based on his sisters recommendations. The patient has a history of right below the knee amputation. Chest x-ray shows some mild fluid overload. A hemodialysis catheter was placed by the vascular surgeon. The patient is currently on the volume assist control mode rate of 14, tidal volume 500, PEEP of 5 and FiO2 35%. Most recent blood gases show a PaO2 of 107 a PaCO2 41 and a pH is 7.46. He is on a saline IV at KVO and tube feeds are on hold for the procedure today. His overall prognosis is very poor. Sputum sample from February 24 is positive for Serratia marcescens and staph aureus. The patient's staff is oxacillin sensitive. The patient will be placed on Levaquin. Objective - Vital Signs Vital signs: Vital Signs Temp 99.2 F 02/27/18 04:00 Pulse 68 02/27/18 07:57 Resp 14 02/27/18 07:00 BP 168/83 02/26/18 07:00 Pulse Ox 99 02/27/18 07:00 Intake & Output 02/26/18 02/27/18 02/27/18 18:59 06:59 18:59 Intake Total 1076 491 23 Output Total 2179 165 20 Balance -1103 326 3 Weight 77.4 kg 74.4 kg Intake: IV 346 293 23 NS 260 210 20 Pressure bag 36 33 3 Valproate Sodium 750 mg 50 50 In Sodium Chloride 0.9% 50 ml @ 50 mls/hr IVPB TID [facility] Rx#:[id number] Intake, IV Titration 250 Amount Vancomycin 1,250 mg In 250 Sodium Chloride 0.9% 250 ml @ 125 mls/hr IVPB ONCE ONE Rx#:[id number] Tube Feeding 420 168 Other 60 30 Output: Urine 179 165 20 Other 2000 Other: Voiding Method Indwelling Catheter Indwelling Catheter # Bowel Movements 1 ABP, PAP, CO, CI - Last Documented Arterial Blood Pressure 175/66 - Exam No acute distress, with an oral endotracheal tube and NG tube in place. No gag reflex. HEENT examination is grossly unremarkable. Mucous membranes are moist. Pupils midpoint and very sluggishly reactive. No corneal reflex. Neck supple. Full range of motion. No adenopathy thyromegaly or neck vein distention. Cardiovascular examination reveals regular rhythm rate. S1-S2 normal. No S3 or S4. No discernible murmur noted. Heart sounds are distant. Lungs reveal diminished breath sounds throughout. A few scattered rhonchi are appreciated. His a few scattered crackles. Breath sounds equal bilaterally. Exam is essentially unchanged from yesterday.. Abdomen soft bowel sounds are heard. No masses or tenderness. Extremities are intact. No cyanosis clubbing or edema. Skin is without rash or lesion. Neurologic examination is difficult to assess. The patient does not have a gag. Doll's eyes are difficult to determine. The patient does have an occasional triggering of the ventilator. Pupillary reflexes are sluggish. No response to pain or verbal stimuli. Neurologic examination is essentially unchanged. - Labs CBC & Chem 7: 02/27/18 04:25 02/27/18 04:25 Labs: Abnormal Lab Results - Last 24 Hours (Table) 02/26/18 02/26/18 02/26/18 Range/Units 12:05 15:33 20:38 RBC (4.30-5.90) m/uL Hgb (13.0-17.5) gm/dL Hct (39.0-53.0) % Lymphocytes # (1.0-4.8) k/uL ABG pH (7.35-7.45) ABG HCO3 (21-25) mmol/L ABG Total CO2 (19-24) mmol/L ABG O2 Saturation (94-97) % BUN (9-20) mg/dL Creatinine (0.66-1.25) mg/dL Glucose (74-99) mg/dL POC Glucose (mg/dL) 167 H 188 H 240 H (75-99) mg/dL Phosphorus (2.5-4.5) mg/dL Magnesium (1.6-2.3) mg/dL 02/27/18 02/27/18 02/27/18 Range/Units 00:10 03:12 04:25 RBC (4.30-5.90) m/uL Hgb (13.0-17.5) gm/dL Hct (39.0-53.0) % Lymphocytes # (1.0-4.8) k/uL ABG pH (7.35-7.45) ABG HCO3 (21-25) mmol/L ABG Total CO2 (19-24) mmol/L ABG O2 Saturation (94-97) % BUN 110 H* (9-20) mg/dL Creatinine 5.81 H (0.66-1.25) mg/dL Glucose 211 H (74-99) mg/dL POC Glucose (mg/dL) 254 H 241 H (75-99) mg/dL Phosphorus 6.3 H (2.5-4.5) mg/dL Magnesium 2.4 H (1.6-2.3) mg/dL 02/27/18 02/27/18 02/27/18 Range/Units 04:25 05:34 08:01 RBC 2.40 L (4.30-5.90) m/uL Hgb 7.1 L (13.0-17.5) gm/dL Hct 22.9 L (39.0-53.0) % Lymphocytes # 0.7 L (1.0-4.8) k/uL ABG pH 7.46 H (7.35-7.45) ABG HCO3 29 H (21-25) mmol/L ABG Total CO2 30 H (19-24) mmol/L ABG O2 Saturation 99.1 H (94-97) % BUN (9-20) mg/dL Creatinine (0.66-1.25) mg/dL Glucose (74-99) mg/dL POC Glucose (mg/dL) 201 H (75-99) mg/dL Phosphorus (2.5-4.5) mg/dL Magnesium (1.6-2.3) mg/dL Microbiology - Last 24 Hours (Table) 02/24/18 05:25 Blood Culture - Preliminary Blood No Growth after 72 hours 02/24/18 05:07 Blood Culture - Preliminary Blood No Growth after 72 hours 02/19/18 23:29 Blood Culture - Final Blood No Growth after 144 hours 02/24/18 05:35 Gram Stain - Final Sputum Sputum Culture - Final Serratia marcescens Staphylococcus aureus Assessment and Plan Assessment: Assessment Acute pulmonary edema with hypoxemic respiratory failure secondary to diastolic dysfunction Intubation with mechanical ventilation on February 20 for respiratory failure Anticipated tracheostomy and PEG tube placement on February 27 Profound hypoglycemia on presentation Serratia marcescens and oxacillin sensitive staph aureus tracheobronchitis/ bronchopneumonia Significant anoxic/metabolic encephalopathy. 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 History of hepatitis C infection History of chronic liver disease History of gout History of deep venous thrombosis History of chronic back pain Remote history of IV drug abuse History of hypertensive urgency Stage V chronic kidney disease Penile discharge, rule out bacterial urethritis Plan: Plan dated 02/24/2018 CODE STATUS will have to be addressed in this individual. The patient's mental status is very poor as mentioned above. If the family wants to continue with life support, the patient will need an early tracheostomy and PEG tube placement. The patient could then be sent to select specialty or some sort of chronic ventilator facility. In addition, if the patient does not want this, we might consider terminal weaning. CODE STATUS needs to be addressed so. Microbiology is negative. White count 11.2, hemoglobin 7.8, hematocrit 24.5, and platelet count is normal. In addition, sodium potassium chloride CO2 normal. Anion gap a bit high at 14. BUN and creatinine were 106 and 5.91. Closed his baseline and he has not required hemodialysis. Medications are reviewed. Chest x-ray shows bilateral small effusions. Again overall prognosis remains extremely poor. Medications are reviewed. Critical care time 33 minutes Plan dated 02/25/2018 I spent a long time talking to the sister yesterday. Unfortunately, she would like the patient to have a tracheostomy and PEG tube placement hoping they on hold but the patient will recover neurologic function. We'll consult one of the surgeons for that. In addition, the patient was started on Rocephin for a purulent penile discharge. The patient remains on my support. Neurologic examination is poor. EEG is consistent with profound anoxic/metabolic encephalopathy. White count 15, hemoglobin 7.8, hematocrit 24.8 and platelet count 341,000. Sodium potassium chloride CO2 all normal. Anion gap normal. BUN 116 with creatinine 6.30. Thus far, all microbiologic studies are negative. Again, the patient was started on Rocephin for a purulent penile discharge. Repeat cultures have been done. Medications labs and x-rays are all reviewed. Critical care time 33 minutes Plan dated 02/26/2018 The patient is apparently scheduled to have a hemodialysis catheter placed today and have hemodialysis today. He does need that. Obviously, the PEG and trach cannot be done until tomorrow. We'll resume his tube feeds. Currently remains on the ventilator. Neurologic examination is unchanged. Sputum showing gram-negative bacilli and presumptive staph. Chest x-ray shows diffuse bilateral infiltrates. White count 11.1 hemoglobin 7.4 hematocrit 23.6 and platelet count 308,000. Sodium potassium chloride CO2 all normal. Anion gap is 11. BUN was 131 with a creatinine of 6.60. Yesterday, BUN was 116 with a creatinine of 6.30. Medications, labs, and x-rays all reviewed. Diagnosis is very poor. We will continue to follow. His sister is okay with tracheostomy and PEG tube placement and long-term placement in a ventilator facility. Critical care time 34 minutes Plan dated 02/27/2018 The patient's antibiotics will be changed to Levaquin, which should cover both the Serratia and oxacillin sensitive staph aureus. White count is 8.1 hemoglobin 7.1 hematocrit 22.9 and platelet count is normal. Sodium potassium chloride CO2 all normal. Anion gap is 11. BUN is 110 and creatinine 5.81 chest x-ray is consistent with mild fluid overload. Hemodialysis catheter was placed. X-rays labs and medications are all reviewed. Additional recommendations and suggestions are forthcoming. Prognosis is poor. We've had the chronic ventilator facility evaluate the patient. Critical care time 33 minutes Time with Patient: Greater than 30
[2018-02-27] MEDS: PANTOPRAZOLE 40 MG/10 ML VIAL IVP SCH (09:03)
--- NOTE | 2018-02-27 09:04 | XR ---
EXAMINATION TYPE: XR chest 1V portable DATE OF EXAM: 02/27/2018 COMPARISON: 02/26/2018 HISTORY: Tube placement TECHNIQUE: Single frontal view of the chest is obtained. FINDINGS: ET and NG tube stable. Right-sided central line stable. Diffuse interstitial pattern with bilateral consolidation and pleural effusion. No pneumothorax atherosclerotic change of the aorta. IMPRESSION: 1. Bilateral consolidation and pleural effusion correlate for CHF. Underlying pneumonia not excluded.
--- NOTE | 2018-02-27 09:56 | P.PN ---
Subjective Patient is seen in follow-up for acute kidney injury on chronic kidney disease. Patient has chronic kidney disease stage IV secondary to biopsy-proven diabetic kidney disease with severe chronicity. His baseline creatinine has been in the range of 4-5. Creatinine was 7.65 on admission with no significant improvement and subsequently started on hemodialysis on February 26. Patient was noted to have volume overload with generalized anasarca and is currently maintained on Lasix 80 mg IV two times daily. He is nonoliguric. Currently intubated. Patient is not responding much to stimuli and there is concern for anoxic injury. Scheduled for trach and PEG today. Vital signs are stable. General: The patient appeared well nourished and normally developed. Intubated. HEENT: Head exam is unremarkable. Neck is without jugular venous distension. LUNGS: Breath sounds decreased. HEART: Rate and Rhythm are regular. First and second heart sounds normal. No murmurs, rubs or gallops. ABDOMEN: Abdominal exam reveals normal bowel sounds. Non-tender and non- distended. No evidence of peritonitis. EXTREMITITES: No clubbing, cyanosis, or edema. Right BKA noted. Objective - Vital Signs Vital signs: Vital Signs Temp 99.2 F 02/27/18 04:00 Pulse 68 02/27/18 07:57 Resp 14 02/27/18 07:00 BP 168/83 02/26/18 07:00 Pulse Ox 99 02/27/18 07:00 Intake & Output 02/26/18 02/27/18 02/27/18 18:59 06:59 18:59 Intake Total 1076 491 23 Output Total 2179 165 20 Balance -1103 326 3 Weight 77.4 kg 74.4 kg Intake: IV 346 293 23 NS 260 210 20 Pressure bag 36 33 3 Valproate Sodium 750 mg 50 50 In Sodium Chloride 0.9% 50 ml @ 50 mls/hr IVPB TID [facility] Rx#:[id number] Intake, IV Titration 250 Amount Vancomycin 1,250 mg In 250 Sodium Chloride 0.9% 250 ml @ 125 mls/hr IVPB ONCE ONE Rx#:[id number] Tube Feeding 420 168 Other 60 30 Output: Urine 179 165 20 Other 2000 Other: Voiding Method Indwelling Catheter Indwelling Catheter # Bowel Movements 1 ABP, PAP, CO, CI - Last Documented Arterial Blood Pressure 175/66 - Labs CBC & Chem 7: 02/27/18 04:25 02/27/18 04:25 Labs: Abnormal Lab Results - Last 24 Hours (Table) 02/26/18 02/26/18 02/26/18 Range/Units 12:05 15:33 20:38 RBC (4.30-5.90) m/uL Hgb (13.0-17.5) gm/dL Hct (39.0-53.0) % Lymphocytes # (1.0-4.8) k/uL ABG pH (7.35-7.45) ABG HCO3 (21-25) mmol/L ABG Total CO2 (19-24) mmol/L ABG O2 Saturation (94-97) % BUN (9-20) mg/dL Creatinine (0.66-1.25) mg/dL Glucose (74-99) mg/dL POC Glucose (mg/dL) 167 H 188 H 240 H (75-99) mg/dL Phosphorus (2.5-4.5) mg/dL Magnesium (1.6-2.3) mg/dL 02/27/18 02/27/18 02/27/18 Range/Units 00:10 03:12 04:25 RBC (4.30-5.90) m/uL Hgb (13.0-17.5) gm/dL Hct (39.0-53.0) % Lymphocytes # (1.0-4.8) k/uL ABG pH (7.35-7.45) ABG HCO3 (21-25) mmol/L ABG Total CO2 (19-24) mmol/L ABG O2 Saturation (94-97) % BUN 110 H* (9-20) mg/dL Creatinine 5.81 H (0.66-1.25) mg/dL Glucose 211 H (74-99) mg/dL POC Glucose (mg/dL) 254 H 241 H (75-99) mg/dL Phosphorus 6.3 H (2.5-4.5) mg/dL Magnesium 2.4 H (1.6-2.3) mg/dL 02/27/18 02/27/18 02/27/18 Range/Units 04:25 05:34 08:01 RBC 2.40 L (4.30-5.90) m/uL Hgb 7.1 L (13.0-17.5) gm/dL Hct 22.9 L (39.0-53.0) % Lymphocytes # 0.7 L (1.0-4.8) k/uL ABG pH 7.46 H (7.35-7.45) ABG HCO3 29 H (21-25) mmol/L ABG Total CO2 30 H (19-24) mmol/L ABG O2 Saturation 99.1 H (94-97) % BUN (9-20) mg/dL Creatinine (0.66-1.25) mg/dL Glucose (74-99) mg/dL POC Glucose (mg/dL) 201 H (75-99) mg/dL Phosphorus (2.5-4.5) mg/dL Magnesium (1.6-2.3) mg/dL Microbiology - Last 24 Hours (Table) 02/24/18 05:25 Blood Culture - Preliminary Blood No Growth after 72 hours 02/24/18 05:07 Blood Culture - Preliminary Blood No Growth after 72 hours 02/19/18 23:29 Blood Culture - Final Blood No Growth after 144 hours 02/24/18 05:35 Gram Stain - Final Sputum Sputum Culture - Final Serratia marcescens Staphylococcus aureus Assessment and Plan Plan: Assessment: 1. Acute kidney injury secondary to ATN secondary to cardiorenal syndrome. Creatinine 7.65 on admission with no significant improvement and subsequently started on hemodialysis on February 26. Tolerated first treatment of hemodialysis while yesterday with 2 L ultrafiltration. 2. Chronic kidney disease stage IV with baseline creatinine in the range of 4- 5. Etiology is biopsy proven diabetic kidney disease. He is noted to have severe chronicity. 3. Hyperkalemia secondary to acute kidney injury. Improved with medical management. 4. Insulin-dependent diabetes mellitus. 5. Hypertension with chronic kidney disease. 5. Volume overload. Improving. 6. Diastolic CHF. 7. Acute hypoxic respiratory failure currently intubated. 8. Anemia of chronic kidney disease. Iron deficiency noted. Status post 3 doses of IV iron. 9. History of hepatitis C. He was to follow-up with GI as outpatient. 10. Hyperphosphatemia secondary to acute kidney injury maintained on PhosLo. Expect improvement post-HD. 11. Seizure which appears to be due to hypoglycemia. Neurology following. Concern for anoxia. Plan: Maintain Lasix 80 mg IV twice daily. Avoid nephrotoxins. Strict I's and O's. Decreased dose of Neurontin to 100 mg 3 times daily. Wean FiO2. Patient seems to have progressed to chronic kidney disease stage V with no significant improvement in his renal function this admission. Family has decided to proceed with trach and PEG. Will need P-cath once extubated. Second treatment of hemodialysis today. Third treatment tomorrow.
[2018-02-27 11:53] LABS: Glucose,Whole Blood 144 mg/dL (75-99)
--- NOTE | 2018-02-27 12:26 | P.PN ---
Subjective Patient is a 67-year-old -[place] male who is being followed by the neurology service for possible seizure. Patient was brought to [facility] emergency room with shortness of breath. He was found to have significant pulmonary edema. Patient does have stage IV chronic kidney disease. Patient was being treated in the emergency room when one of the nurses noted patient to be unresponsive. Patient had questionable jerking activity. Patient had significant hypoglycemia in the 20s. He was given D50, intubated and sedated. Patient is currently in the ICU. Computed tomography scan of the brain was done which showed no acute abnormality. Computed tomography scan did show evidence of mild generalized atrophy. Patient was noted to have some rhythmic jerking. Patient was taken off propofol and had an EEG done. EEG showed generalized slowing of the background rhythm. EEG also showed significant triphasic waves which is commonly seen in hepatic pathology. Myoclonic activity was described. Patient was started on Depakote 500 mg every 12 hours IV. Staff reports no further jerking movements since starting Depakote. Patient remains sedated with propofol and on mechanical ventilation. acute kidney injury on chronic kidney disease. Patient has chronic kidney disease stage IV secondary to biopsy-proven diabetic kidney disease with severe chronicity. His baseline creatinine has been in the range of 4-5. Creatinine was 7.65 on admission 02/23/2018 this is my first day taking care of the pt , pt is still on vent , he has been off sedation , however he is still not waking up as expected . pt could have metabolic encephalopathy , vs other . pt with acute on chronic Kidney disease stage IV. nephrology are following the case .Creatinine was 7.65 on admission and is 5.99 today. pt is been seen by neurology who recommended to repeat the EEG and result is pending.pt had subtherapeutic level and extra doses were provided for him yesterday EEG from 02/21: abnormal with significant triphasic waves which is commonly seen in hepatic encephalopahty pt still does not respond to pain stimuli. despite been off sedation since this morning. pupils are equal and reactive to light, meningeal signs were absent when i examined the pt this morning pt has h/o Hep C and B , we will check ammonia level and other work up like B12 ,thyroid function test, syphlis screen ,repeat CT of the head ,with neurology follow up. no fever , no leukocytosis 02/24/2018 no change from yesterday in his mental status from the first time a saw her , still unresponsive , neurologist team is following the pt and recommended repeat EEG. critical care input is appreciated . ammonia level and TSH were negative , repeat CT head is negative for acute process as well 02/25/2018 Patient remains unresponsive as before. Repeat EEG showing moderate encephalopathy, significant triphasic waves consistent with hepatic disease. Occasional sharp wave consistent with due to seizure threshold. But no generalized epileptiform discharge. Patient is a plan to have trach placed on the surgical site. As well as dialysis catheter for dialysis. Patient has Delcid catheter with 40 mL in the bag. There is purulent discharge from the penis. Discussed with staff. Check culture for the discharge, change. AND CHECK BLADDER SCAN 02/26/2018 Patient remains unresponsive, the same. Patient had a dialysis catheter placed. Than his going for hemodialysis currently. Patient has been evaluated by pre school teacher on their input is appreciated. Patient is planned for going for PEG and tracheostomy possibly tomorrow, as per family wishes. To call care consult is appreciated. He has positive sputum culture was fracture and staphylococcus. urine discharge so there was has been changed. Urine culture is pending. We'll consult infectious diseases specialist. Patient with mild leukocytosis 02/27/2018 No improvement in the patient mental status, he remains unresponsive and intubated. Went for dialysis yesterday and today. And PEG tube with check estimated are planned for the patient's in 1 or 2 days. Prognosis remains very poor. The sputum culture is growing Serratia and staph aureus. ID consult is appreciated and patient was started on cefepime. Also patient got IV vancomycin doses . Pulmonary/critical care input is appreciated. Hemoglobin at 7.1. No leukocytosis. He had fever yesterday at 100.2 Review of system: N/a Medication with dosages were reviewed including Tylenol 325 mg, November up 0.5-3 mg. Norvasc 10 mg. Lipitor 10 mg. Calcium acetate 667 mg. Ceftriaxone 1000 mg. Chlorhexidine. Clonidine 0.3 mg patch. Lasix 8 mg. Neurontin 100 mg. Heparin 5000 unit. Hydralazine 40 mg. NovoLog sliding scale. Labetalol 400 mg. Narcan 0.2 mg. protonix 40 mg. propofol on hold. sodium bicarb 650 mg. flomax 0.4 mg. thiamine 100 mg. valproic acid 750 mg. Objective - Vital Signs Vital signs: Vital Signs Temp 98.5 F 02/27/18 10:00 Pulse 62 02/27/18 10:00 Resp 13 02/27/18 10:00 BP 168/83 02/26/18 07:00 Pulse Ox 99 02/27/18 10:00 Intake & Output 02/26/18 02/27/18 02/27/18 18:59 06:59 18:59 Intake Total 1076 491 342 Output Total 2179 165 120 Balance -1103 326 222 Weight 77.4 kg 74.4 kg Intake: IV 346 293 132 NS 260 210 70 Pressure bag 36 33 12 Valproate Sodium 750 mg 50 50 50 In Sodium Chloride 0.9% 50 ml @ 50 mls/hr IVPB TID [facility] Rx#:[id number] Intake, IV Titration 250 150 Amount Potassium Chloride 20 meq 150 In Water For Injection 1 100ml.bag @ 50 mls/hr IVPB Q2HR [facility] Rx#: [id number] Vancomycin 1,250 mg In 250 Sodium Chloride 0.9% 250 ml @ 125 mls/hr IVPB ONCE ONE Rx#:[id number] Tube Feeding 420 168 Other 60 30 60 Output: Urine 179 165 120 Other 2000 Other: Voiding Method Indwelling Catheter Indwelling Catheter # Bowel Movements 1 ABP, PAP, CO, CI - Last Documented Arterial Blood Pressure 149/61 - Exam -GENERAL: The patient is unresponsive , does not open eyes,intubated. not in any acute distress. Well developed, HEENT: Pupils are round and equally reacting to light. EOMI. No scleral icterus. No conjunctival pallor. Normocephalic, atraumatic. No pharyngeal erythema. No thyromegaly. CARDIOVASCULAR: S1 and S2 present. No murmurs, rubs, or gallops. -PULMONARY: Chest is clear to auscultation, no wheezing. Bilateral scattered crackles. ABDOMEN: Soft, nontender, nondistended, normoactive bowel sounds. No palpable organomegaly. MUSCULOSKELETAL: No joint swelling or deformity. EXTREMITIES: No cyanosis, clubbing, or pedal edema. -s/p right BKA -NEUROLOGICAL: unresponsive to verbal or painful stinuli, does not open eyes. SKIN: No rashes. - Labs CBC & Chem 7: 02/27/18 04:25 02/27/18 04:25 Labs: Abnormal Lab Results - Last 24 Hours (Table) 02/26/18 02/26/18 02/27/18 Range/Units 15:33 20:38 00:10 RBC (4.30-5.90) m/uL Hgb (13.0-17.5) gm/dL Hct (39.0-53.0) % Lymphocytes # (1.0-4.8) k/uL ABG pH (7.35-7.45) ABG HCO3 (21-25) mmol/L ABG Total CO2 (19-24) mmol/L ABG O2 Saturation (94-97) % BUN (9-20) mg/dL Creatinine (0.66-1.25) mg/dL Glucose (74-99) mg/dL POC Glucose (mg/dL) 188 H 240 H 254 H (75-99) mg/dL Phosphorus (2.5-4.5) mg/dL Magnesium (1.6-2.3) mg/dL 02/27/18 02/27/18 02/27/18 Range/Units 03:12 04:25 04:25 RBC 2.40 L (4.30-5.90) m/uL Hgb 7.1 L (13.0-17.5) gm/dL Hct 22.9 L (39.0-53.0) % Lymphocytes # 0.7 L (1.0-4.8) k/uL ABG pH (7.35-7.45) ABG HCO3 (21-25) mmol/L ABG Total CO2 (19-24) mmol/L ABG O2 Saturation (94-97) % BUN 110 H* (9-20) mg/dL Creatinine 5.81 H (0.66-1.25) mg/dL Glucose 211 H (74-99) mg/dL POC Glucose (mg/dL) 241 H (75-99) mg/dL Phosphorus 6.3 H (2.5-4.5) mg/dL Magnesium 2.4 H (1.6-2.3) mg/dL 02/27/18 02/27/18 02/27/18 Range/Units 05:34 08:01 11:52 RBC (4.30-5.90) m/uL Hgb (13.0-17.5) gm/dL Hct (39.0-53.0) % Lymphocytes # (1.0-4.8) k/uL ABG pH 7.46 H (7.35-7.45) ABG HCO3 29 H (21-25) mmol/L ABG Total CO2 30 H (19-24) mmol/L ABG O2 Saturation 99.1 H (94-97) % BUN (9-20) mg/dL Creatinine (0.66-1.25) mg/dL Glucose (74-99) mg/dL POC Glucose (mg/dL) 201 H 144 H (75-99) mg/dL Phosphorus (2.5-4.5) mg/dL Magnesium (1.6-2.3) mg/dL Microbiology - Last 24 Hours (Table) 02/24/18 05:25 Blood Culture - Preliminary Blood No Growth after 72 hours 02/24/18 05:07 Blood Culture - Preliminary Blood No Growth after 72 hours 02/19/18 23:29 Blood Culture - Final Blood No Growth after 144 hours 02/24/18 05:35 Gram Stain - Final Sputum Sputum Culture - Final Serratia marcescens Staphylococcus aureus Assessment and Plan Plan: Assessment and Plan -Acute hypoxic respiratory failure: Secondary to congestive heart failure chronic diastolic dysfunction with acute exacerbation patient , with other causes occluded. He was started on high-dose of Lasix. Continuing with the ventilatory support, diurese well improved creatinine with Lasix. Improving -possible seizure related to low glu , neurology team is following the pt , on depakote and level checked as per neuro team recommendation -acute on chronic renal failure , f/u with nephrology. Patient is getting hemodialysis -metabolic encephalopathy , possibly secondary to all above -Sepsis with possible tracheobronchitis, positive sputum culture. Patient on antibiotic. 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 -Hypotension is possibly secondary to sedation antidepressive medications will be held and restarted as needed. Hyperlipidemia -Episode of seizure believed to be secondary to hypoglycemia and encephalopathy EEG showed diffuse slowing. patient has metabolic and toxic encephalopathy -Possible [place] discharge from the penile orifice. Culture: Pending DVT and GI px. pt is on heparin and protonix prognosis is very poor
--- NOTE | 2018-02-27 14:13 | PN ---
PROGRESS NOTE DATE OF SERVICE: 02/27/2018 REASON FOR FOLLOW UP: Positive sputum culture and pneumonia. INTERVAL HISTORY: The patient is currently afebrile. His hematoma is stable, he is currently off sedation. However, he is not waking up for the nursing staff. No significant purulence, secretions through the ET and no significant diarrhea. PHYSICAL EXAMINATION: Blood pressure 149/61 with a pulse of 52, temperature 98.5. He is 99% on 35% FiO2. General description is an elderly male, lying in bed in no distress. RESPIRATORY SYSTEM: Unlabored breathing with decreased breath sounds at bases, no wheeze. HEART: S1, S2. Regular rate and rhythm. ABDOMEN: Soft, no tenderness LABS: Hemoglobin 7.2, white count 8.9, BUN of 110, creatinine 5.81. Blood culture has been negative. Sputum with Serratia marcescens, Staph aureus, MSSA. DIAGNOSTIC IMPRESSION AND PLAN: Patient with pneumonia with sputum showing methicillin-sensitive Staphylococcus aureus and Serratia marcescens. Patient is currently on cefepime that will be continued while waiting for his clinical condition to stabilize. Continue supportive care. MMODL / IJN: [id number] /
[2018-02-27] MEDS ORDERED: SODIUM CHLORIDE 0.9% 500 ML 500 ML IV ONE ×3 (15:25→16:13)
[2018-02-27] MEDS ORDERED: fentaNYL (PF) 50 MCG/ML 2 ML AMP ONE (15:25)
[2018-02-27] MEDS ORDERED: BUPIVACAIN-EPI 0.25%-1:200,000 30 ML VIAL SQ ONE ×2 (15:57)
--- NOTE | 2018-02-27 16:44 | P.OP ---
Date of Procedure: 02/27/18 Procedure(s) Performed: PREOPERATIVE DIAGNOSIS: Respiratory failure, malnutrition POSTOPERATIVE DIAGNOSIS: Same PROCEDURE: Tracheostomy, EGD with PEG tube placement SURGEON: Anjel EBL: Minimal ANESTHESIA: General COMPLICATIONS: None OPERATIVE PROCEDURE: Patient was placed in the operative table in the supine position. A shoulder roll was utilized. The neck was prepped and draped in usual sterile fashion. The skin was infiltrated with local anesthesia. A small cervical incision was created using the scalpel. Dissection through the subcutaneous fat and platysma layer took place using electrocautery. The underlying strap muscles were divided in the midline. The thyroid isthmus was divided using electrocautery as well. No bleeding was seen. The trachea was easily identified at this time. The endotracheal tube was advanced and the balloon was reinflated. The patient was preoxygenated with 100% FiO2. The FiO2 was then brought down to room air. Once the end title oxygen level was less than 35 a vertical tracheostomy was created using the electrocautery. This went through the second and third tracheal ring. The patient was again preoxygenated with 100% FiO2. The victims advocate clerk/specialist was utilized. Carefully the endotracheal tube was withdrawn just proximal to our tracheostomy. The 8- Czech Shiley fenestrated tracheostomy catheter was advanced under direct visualization into the trachea. The obturator was inserted. This was then connected to the ventilator. Positive end tidal CO2 was confirmed. The tracheal ties were utilized. The trach was sutured to the skin superiorly using 2 separate 0 silk sutures. The skin was closed using 3-0 Vicryl sutures. A dressing was applied. The patient was capped in the supine position on the operating room table. The Olympus gastroscope was inserted into the oropharynx and passed under direct visualization to the region of the duodenum. No obstruction was seen. The pylorus was widely patent. The stomach was carefully inspected. The stomach was fully insufflated with air. The abdominal wall was inspected. The light was seen shining through the abdominal wall in the left upper quadrant. This site was chosen for PEG tube placement. The area was prepped in the usual sterile fashion. A small vertical incision was made using the scalpel. The Seldinger needle was advanced into the lumen of the stomach the wire was advanced. The wire was grasped with an endoscopic snare. The wire was pulled through the oropharynx. The catheter was then threaded over the guidewire and the guidewire and catheter were pulled anteriorly until the hub of the PEG tube catheter was seated against the anterior wall the stomach. The circular bolster was applied and tightened down. The endoscope was then readvanced into the stomach. There was no evidence of any bleeding and there was appropriate tightness on the bolster. The catheter was cut appropriately. The dual port feeding adapter was applied. DISPOSITION: Stable to ICU
[2018-02-27] MEDS: CEFEPIME 1 GM in SODIUM CHLORIDE 0.9% 50 ML IVPB SCH (17:00)
[2018-02-27 17:02] LABS: Glucose,Whole Blood 184 mg/dL (75-99)
[2018-02-27 20:36] LABS: Glucose,Whole Blood 177 mg/dL (75-99)
[2018-02-27] MEDS: ATORVASTATIN 10 MG TAB PO SCH (20:39)
[2018-02-27] MEDS: hydrALAZINE HCL 20 MG/ML 1 ML VIAL IVP PRN (20:50)
[2018-02-27 23:47] LABS: Glucose,Whole Blood 170 mg/dL (75-99)
[2018-02-28] MEDS: INSULIN ASPART 100 UNIT/ML 1 ML 10 ML VIAL SQ SCH ×5 (03:21→20:36)
[2018-02-28 03:23] LABS: Glucose,Whole Blood 127 mg/dL (75-99)
[2018-02-28] MEDS: IPRATROPIUM-ALBUTEROL 3 ML NEB INHALATION SCH ×5 (03:39→20:12)
[2018-02-28 05:00] LABS: Calcium 8.3 mg/dL (8.4-10.2); Magnesium 2.4 mg/dL (1.6-2.3); Phosphorus 6.5 mg/dL (2.5-4.5); Potassium 4.3 mmol/L (3.5-5.1)
[2018-02-28 05:04] LABS: Basophils % (A) 0 %; Eosinophils # (A) 0.1 k/uL (0-0.7); Eosinophils % (A) 2 %; HCT 23.1 % (39.0-53.0); Hypochromasia Moderate; Lymphocytes # (A) 0.6 k/uL (1.0-4.8); Lymphocytes % (A) 13 %; MCH 28.6 pg (25.0-35.0); MCHC 30.5 g/dL (31.0-37.0); MCV 93.9 fL (80.0-100.0); Mean Platelet Volume 7.6; Monocytes # (A) 0.3 k/uL (0-1.0); Monocytes % (A) 7 %; Neutrophils # (A) 3.5 k/uL (1.3-7.7); Neutrophils % (A) 76 %; Platelet Count 245 k/uL (150-450); RBC 2.46 m/uL (4.30-5.90); RDW 14.1 % (11.5-15.5); WBC 4.6 k/uL (3.8-10.6)
[2018-02-28 05:04] LABS: ABG Base Excess 2.6 mmol/L; ABG HCO3 27 mmol/L (21-25); ABG Oxygen Saturation 99.3 % (94-97); ABG PCO2 41 mmHg (35-45); ABG PH 7.43 (7.35-7.45); ABG PO2 114 mmHg (83-108); ABG TCO2 28 mmol/L (19-24)
[2018-02-28 05:05] LABS: Valproic Acid (Depakene) 42.9 ug/mL
[2018-02-28] MEDS: hydrALAZINE HCL 20 MG/ML 1 ML VIAL IVP PRN ×2 (06:47→13:13)
[2018-02-28 07:33] LABS: Glucose,Whole Blood 130 mg/dL (75-99)
[2018-02-28] MEDS: CALCIUM ACETATE 667 MG CAP PO SCH ×3 (07:48→16:53)
--- NOTE | 2018-02-28 07:56 | P.PN ---
Subjective Patient is seen in follow-up for acute kidney injury on chronic kidney disease. Patient has chronic kidney disease stage IV secondary to biopsy-proven diabetic kidney disease with severe chronicity. His baseline creatinine has been in the range of 4-5. Creatinine was 7.65 on admission with no significant improvement and subsequently started on hemodialysis on February 26. Patient was noted to have volume overload with generalized anasarca and is currently maintained on Lasix 80 mg IV two times daily. Urine output has been 15-20 mL an hour. Patient is not responding much to stimuli and there is concern for anoxic injury. Patient underwent tracheostomy and PEG tube placement on February 27. Vital signs are stable. General: The patient appeared well nourished and normally developed. Intubated. HEENT: Head exam is unremarkable. Neck is without jugular venous distension. LUNGS: Breath sounds decreased. HEART: Rate and Rhythm are regular. First and second heart sounds normal. No murmurs, rubs or gallops. ABDOMEN: Abdominal exam reveals normal bowel sounds. Non-tender and non- distended. No evidence of peritonitis. EXTREMITITES: No clubbing, cyanosis, or edema. Right BKA noted. Objective - Vital Signs Vital signs: Vital Signs Temp 98.2 F 02/28/18 04:00 Pulse 70 02/28/18 07:00 Resp 14 02/28/18 07:00 BP 151/82 02/27/18 19:00 Pulse Ox 98 02/28/18 07:00 Intake & Output 02/27/18 02/28/18 02/28/18 18:59 06:59 18:59 Intake Total 718 283 23 Output Total 177 165 15 Balance 541 118 8 Weight 75.8 kg Intake: IV 408 283 23 NS 190 200 20 Pressure bag 18 33 3 Valproate Sodium 750 mg 50 50 In Sodium Chloride 0.9% 50 ml @ 50 mls/hr IVPB TID RAINE Rx#:[id number] Intake, IV Titration 250 Amount Cefepime 1 gm In Sodium 50 Chloride 0.9% 50 ml @ 100 mls/hr IVPB DAILY@1700 RAINE Rx#:[id number] Potassium Chloride 20 meq 200 In Water For Injection 1 100ml.bag @ 50 mls/hr IVPB Q2HR RAINE Rx#: [id number] Tube Feeding 0 0 Other 60 Output: Urine 172 165 15 Estimated Blood Loss 5 Other: Voiding Method Indwelling Catheter Indwelling Catheter ABP, PAP, CO, CI - Last Documented Arterial Blood Pressure 156/67 - Labs CBC & Chem 7: 02/28/18 04:20 02/28/18 04:20 Labs: Abnormal Lab Results - Last 24 Hours (Table) 02/27/18 02/27/18 02/27/18 Range/Units 08:01 11:52 17:00 RBC (4.30-5.90) m/uL Hgb (13.0-17.5) gm/dL Hct (39.0-53.0) % MCHC (31.0-37.0) g/dL Lymphocytes # (1.0-4.8) k/uL ABG pO2 (83-108) mmHg ABG HCO3 (21-25) mmol/L ABG Total CO2 (19-24) mmol/L ABG O2 Saturation (94-97) % BUN (9-20) mg/dL Creatinine (0.66-1.25) mg/dL Glucose (74-99) mg/dL POC Glucose (mg/dL) 201 H 144 H 184 H (75-99) mg/dL Calcium (8.4-10.2) mg/dL Phosphorus (2.5-4.5) mg/dL Magnesium (1.6-2.3) mg/dL 02/27/18 02/27/18 02/28/18 Range/Units 20:33 23:45 03:21 RBC (4.30-5.90) m/uL Hgb (13.0-17.5) gm/dL Hct (39.0-53.0) % MCHC (31.0-37.0) g/dL Lymphocytes # (1.0-4.8) k/uL ABG pO2 (83-108) mmHg ABG HCO3 (21-25) mmol/L ABG Total CO2 (19-24) mmol/L ABG O2 Saturation (94-97) % BUN (9-20) mg/dL Creatinine (0.66-1.25) mg/dL Glucose (74-99) mg/dL POC Glucose (mg/dL) 177 H 170 H 127 H (75-99) mg/dL Calcium (8.4-10.2) mg/dL Phosphorus (2.5-4.5) mg/dL Magnesium (1.6-2.3) mg/dL 02/28/18 02/28/18 02/28/18 Range/Units 04:20 04:20 05:00 RBC 2.46 L (4.30-5.90) m/uL Hgb 7.0 L (13.0-17.5) gm/dL Hct 23.1 L (39.0-53.0) % MCHC 30.5 L (31.0-37.0) g/dL Lymphocytes # 0.6 L (1.0-4.8) k/uL ABG pO2 114 H (83-108) mmHg ABG HCO3 27 H (21-25) mmol/L ABG Total CO2 28 H (19-24) mmol/L ABG O2 Saturation 99.3 H (94-97) % BUN 94 H (9-20) mg/dL Creatinine 5.64 H (0.66-1.25) mg/dL Glucose 115 H (74-99) mg/dL POC Glucose (mg/dL) (75-99) mg/dL Calcium 8.3 L (8.4-10.2) mg/dL Phosphorus 6.5 H (2.5-4.5) mg/dL Magnesium 2.4 H (1.6-2.3) mg/dL 02/28/18 Range/Units 07:29 RBC (4.30-5.90) m/uL Hgb (13.0-17.5) gm/dL Hct (39.0-53.0) % MCHC (31.0-37.0) g/dL Lymphocytes # (1.0-4.8) k/uL ABG pO2 (83-108) mmHg ABG HCO3 (21-25) mmol/L ABG Total CO2 (19-24) mmol/L ABG O2 Saturation (94-97) % BUN (9-20) mg/dL Creatinine (0.66-1.25) mg/dL Glucose (74-99) mg/dL POC Glucose (mg/dL) 130 H (75-99) mg/dL Calcium (8.4-10.2) mg/dL Phosphorus (2.5-4.5) mg/dL Magnesium (1.6-2.3) mg/dL Microbiology - Last 24 Hours (Table) 09/24/18 05:25 Blood Culture - Preliminary Blood No Growth after 96 hours 02/24/18 05:07 Blood Culture - Preliminary Blood No Growth after 96 hours 02/24/18 03:05 Anaerobic Culture - Final Penis Anaerobic Gm Negative Bacilli Anaerobic Gm Negative Bacilli#2 Anaerobic Gram Positive Cocci Assessment and Plan Plan: Assessment: 1. Acute kidney injury secondary to ATN secondary to cardiorenal syndrome. Creatinine 7.65 on admission with no significant improvement and subsequently started on hemodialysis on February 26. Tolerated first treatment of hemodialysis while yesterday with 2 L ultrafiltration. 2. Chronic kidney disease stage IV with baseline creatinine in the range of 4- 5. Etiology is biopsy proven diabetic kidney disease. He is noted to have severe chronicity. 3. Hyperkalemia secondary to acute kidney injury. Improved with medical management. 4. Insulin-dependent diabetes mellitus. 5. Hypertension with chronic kidney disease. 5. Volume overload. Improving. 6. Diastolic CHF. 7. Acute hypoxic respiratory failure currently intubated. 8. Anemia of chronic kidney disease. Iron deficiency noted. Status post 3 doses of IV iron. 9. History of hepatitis C. He was to follow-up with GI as outpatient. 10. Hyperphosphatemia secondary to acute kidney injury maintained on PhosLo. Expect improvement post-HD. 11. Seizure which appears to be due to hypoglycemia. Neurology following. Concern for anoxia. Plan: Maintain Lasix 80 mg IV twice daily. Avoid nephrotoxins. Strict I's and O's. Decreased dose of Neurontin to 100 mg 3 times daily. Patient seems to have progressed to chronic kidney disease stage V with no significant improvement in his renal function this admission. Third treatment of hemodialysis today. Can hold off over the weekend. Will need a permacath and femoral catheter discontinued. Will discuss with vascular surgery.
[2018-02-28] MEDS: HEPARIN SODIUM,PORCINE 5,000 UNIT/ML 1 ML VIAL SQ SCH ×2 (08:23→16:52)
[2018-02-28] MEDS: CHLORHEXIDINE GLUCONATE 15 ML CUP MUCOUS MEM SCH ×2 (08:24→20:36)
[2018-02-28] MEDS: GABAPENTIN 100 MG CAP PO SCH ×3 (08:24→21:12)
[2018-02-28] MEDS: amLODIPine 10 MG TAB PO SCH (08:24)
[2018-02-28] MEDS: LABETALOL 200 MG TAB PO SCH ×3 (08:24→21:12)
[2018-02-28] MEDS: FUROSEMIDE 10 MG/ML 10 ML VIAL IV SCH ×2 (08:24→20:38)
[2018-02-28] MEDS: VALPROATE SODIUM 750 MG in SODIUM CHLORIDE 0.9% 50 ML IVPB SCH ×3 (08:25→21:12)
[2018-02-28] MEDS: THIAMINE 100 MG/ML 2 ML VIAL IVP SCH (08:25)
[2018-02-28] MEDS: TAMSULOSIN 0.4 MG CAP.ER.24H PO SCH (08:25)
[2018-02-28] MEDS: PANTOPRAZOLE 40 MG/10 ML VIAL IVP SCH (08:25)
[2018-02-28] MEDS: SODIUM BICARBONATE TAB 650 MG TAB PO SCH (08:25)
--- NOTE | 2018-02-28 08:25 | XR ---
EXAMINATION TYPE: XR chest 1V portable DATE OF EXAM: 02/28/2018 COMPARISON: Prior chest x-ray 02/27/2018 HISTORY: Intubated, abnormal chest x-ray TECHNIQUE: Single frontal view of the chest is obtained. FINDINGS: Tracheostomy tube is overlying the tracheal air column. No evident pneumothorax. Right sub clavian central venous catheter shows the distal tip over the right atrium. Bibasilar increased densi ty persists. Heart is stable, patient is rotated. Interstitium is somewhat prominent. IMPRESSION: There may be basilar atelectasis versus edema and congestive heart failure and associate d effusion. Rotated exam, additional follow-up recommended.
--- NOTE | 2018-02-28 09:21 | P.PN ---
Subjective Progress Note Date: 02/28/18 Principal diagnosis: Renal failure, respiratory failure, seizure, profound anoxic/metabolic encephalopathy. Progress note dated 02/24/2018 This is a 67-year-old male with a history of renal failure respiratory failure seizure disorder and significant anoxic/metabolic encephalopathy. The patient was admitted on the and intubated on the . He has not been on any sedation for more than 2 days. Unfortunately, the patient's mental status is extremely poor. He does not respond well to deep pain or any other stimuli for that matter. He does not have a gag reflex. His pupillary reflexes are very sluggish. He has been seen by neurology. A CT of the brain has been done 2. Also, the patient will have 2 EEGs. Currently, the patient is a full code. CODE STATUS does need to be addressed. The patient is on the ventilator. He is on the volume assist control mode, rate of 14, tidal volume 500, FiO2 35% and PEEP of 5. Blood gases are reasonable with a PaO2 of 89 a PaCO2 of 40 and a pH of 7.48. For blood pressure control, the patient's on labetalol, Norvasc, hydralazine, and Catapres patch. The chest x-ray shows bilateral effusions. Microbiology is negative. I did ask the nurse to call the family to discuss CODE STATUS. If they want continued full care, the patient should have a early tracheostomy and PEG tube placement. If not, terminal weaning would be appropriate in my opinion given his poor mental status. Progress note dated 02/25/2018 This is a 67-year-old black male with history of renal failure, respiratory failure, seizure disorder, and significant anoxic/metabolic encephalopathy. He was admitted on the and intubated on the for respiratory failure. He has not been on any sedatives hypnotics narcotics and tranquilizers for more than 2 days. The patient's mental status is extremely poor. He has not responded to deep pain or verbal stimuli. Pupils were midpoint and sluggishly reactive. There is no gag reflex. No corneal reflex. He does occasionally trigger the ventilator. He's had a CAT scan of the brain 2 and 3 EEGs. I had a long discussion with the patient's sister yesterday. She is currently about making the patient a comfort measures and allowing him to be taken off life support. She apparently had to make a decision to amputate his leg and for that reason, the patient's sister the preferred to proceed with tracheostomy and PEG tube and a chronic ventilator facility as opposed to comfort measures. The patient is suffering from significant penile discharge. It's very green and yellow and purulent looking. I added Rocephin this morning. Cultures have been done and are pending. Prognosis is extremely poor. Currently, he is on the volume assist control mode, rate of 14, tidal volume 500, FiO2 35% and PEEP of 5. Arterial blood gases show a PaO2 of 92 a PaCO2 of 44 and a pH of 7.46. The patient's IV is saline at 20 mL an hour. He is getting tube feeds. Progress note dated 02/26/2018 67-year-old black male with a history of respiratory failure renal fire seizure disorder and profound anoxic/metabolic encephalopathy. He was admitted back on February 19 and intubated on the for acute respiratory failure. The patient has not had any sedatives hypnotics narcotics tranquilizers for the last 3 or 4 days. The patient's mental status is extremely poor. He does not respond to deep pain or verbal stimuli. The patient does have sluggishly reactive pupils. There is no corneal reflex. There is no gag reflex. He does trigger the ventilator occasionally. He's had CAT scans of the brain and EEGs multiple times. I've had a discussion with the patient's sister. She feels that she wants to give the patient every chance to improve neurologically and is willing to proceed with tracheostomy and PEG tube placement despite my urgings otherwise. I told her that after tracheostomy and PEG tube placement, the patient would likely go to a specialized nursing facility or chronic ventilator management facility. She is okay with this. Currently, the patient' s on the volume assist control mode with a rate of 14, tidal [place] 500, FiO2 35% and PEEP of 5. Arterial blood gases show a PaO2 of 87.3 PaCO2 43 and a pH of 7.45. The patient's IV is saline at 20 mL an hour. Tube feeds are on hold for an anticipated trach and PEG today although on learning that possibly will be done until tomorrow. Sputum was positive for gram-negative bacilli and possible staph aureus. The patient's on Rocephin and vancomycin. Trach and PEG will be done either today or tomorrow. Prognosis is very poor. Progress note dated 02/27/2018 67-year-old black male with a history of respiratory failure, renal fire, seizure disorder and profound anoxic/metabolic encephalopathy. The patient was admitted on February 19 and intubated on the for acute respiratory failure. The patient has not required any sedatives hypnotics narcotics or tranquilizers for the last 4 or 5 days. The patient's mental status continues to be very poor. The patient does not respond to deep pain or verbal stimuli and has pupils which are sluggishly reactive. The patient does not have a corneal reflex or gag reflex. He does trigger the ventilator occasionally. He' s had multiple CAT scans of the brain and EEGs. The patient is going for tracheostomy and PEG tube placement today. This is based on his sisters recommendations. The patient has a history of right below the knee amputation. Chest x-ray shows some mild fluid overload. A hemodialysis catheter was placed by the vascular surgeon. The patient is currently on the volume assist control mode rate of 14, tidal volume 500, PEEP of 5 and FiO2 35%. Most recent blood gases show a PaO2 of 107 a PaCO2 41 and a pH is 7.46. He is on a saline IV at KVO and tube feeds are on hold for the procedure today. His overall prognosis is very poor. Sputum sample from February 24 is positive for Serratia marcescens and staph aureus. The patient's staff is oxacillin sensitive. The patient will be placed on Levaquin. Progress note dated 02/28/2018 67-year-old black male with a history of respiratory failure. The patient was admitted on the intubated on the . Patient has not made any progress in yesterday on February 27, he underwent a tracheostomy and PEG tube placement. The patient remains on the volume assist control mode. Rate is 14, tidal volume 500, FiO2 40% to be dropped down to 30% and a PEEP of 5. Arterial blood gases show a PaO2 of 114 PaCO2 41 and a pH 7.43. The patient is receiving a saline IV at 20 mL an hour. Tube feeds are still on hold given the fresh PEG tube yesterday. Sputum shows evidence of both Serratia marcescens and oxacillin sensitive staph aureus. Chest x-rays consistent with mild fluid overload. The penile sampling shows gram-negative bacilli and gram-positive cocci although nothing has yet been identified. The patient remains on cefepime as an antibiotic. In addition, there were plans to transfer the patient to long-term acute care facility. Later today, we will resume tube feeds. I am happy to report that his mental status seemed to be a bit improved today. Nothing purposeful but his eyes are open and he seems to minimally respond to verbal stimuli. Overall prognosis though, remains very poor. A hemodialysis catheter was placed and he is undergoing intermittent hemodialysis as per nephrology. Objective - Vital Signs Vital signs: Vital Signs Temp 98.2 F 02/28/18 04:00 Pulse 76 02/28/18 08:32 Resp 14 02/28/18 07:00 BP 151/82 02/27/18 19:00 Pulse Ox 98 02/28/18 07:00 Intake & Output 02/27/18 02/28/18 02/28/18 18:59 06:59 18:59 Intake Total 718 283 23 Output Total 177 165 15 Balance 541 118 8 Weight 75.8 kg Intake: IV 408 283 23 NS 190 200 20 Pressure bag 18 33 3 Valproate Sodium 750 mg 50 50 In Sodium Chloride 0.9% 50 ml @ 50 mls/hr IVPB TID RAINE Rx#:[id number] Intake, IV Titration 250 Amount Cefepime 1 gm In Sodium 50 Chloride 0.9% 50 ml @ 100 mls/hr IVPB DAILY@1700 RAINE Rx#:[id number] Potassium Chloride 20 meq 200 In Water For Injection 1 100ml.bag @ 50 mls/hr IVPB Q2HR RAINE Rx#: [id number] Tube Feeding 0 0 Other 60 Output: Urine 172 165 15 Estimated Blood Loss 5 Other: Voiding Method Indwelling Catheter Indwelling Catheter ABP, PAP, CO, CI - Last Documented Arterial Blood Pressure 156/67 - Exam No acute distress, with an midline tracheostomy and PEG tube in place. Still no gag reflex. HEENT examination is grossly unremarkable. Mucous membranes are moist. Pupils midpoint and very sluggishly reactive. Neck supple. Full range of motion. No adenopathy thyromegaly or neck vein distention. Midline tracheostomy noted. Cardiovascular examination reveals regular rhythm rate. S1-S2 normal. No S3 or S4. No discernible murmur noted. Heart sounds are distant. Heart rate is 73 bpm. Lungs reveal diminished breath sounds throughout. A few scattered rhonchi are appreciated. His a few scattered crackles. Breath sounds equal bilaterally. Exam is essentially unchanged from yesterday.. Abdomen soft bowel sounds are heard. No masses or tenderness. A PEG tube is noted. Extremities are intact. No cyanosis clubbing or edema. Skin is without rash or lesion. Neurologic examination is difficult to assess. The patient does not have a gag. Doll's eyes are difficult to determine. The patient does have an occasional triggering of the ventilator. Pupillary reflexes are sluggish. The patient does appear to be a bit more awake today. He has open eyes and is demonstrating roaming eyes. Barely responsive verbal stimuli. It may or may not be purposeful. - Labs CBC & Chem 7: 02/28/18 04:20 02/28/18 04:20 Labs: Abnormal Lab Results - Last 24 Hours (Table) 02/27/18 02/27/18 02/27/18 Range/Units 11:52 17:00 20:33 RBC (4.30-5.90) m/uL Hgb (13.0-17.5) gm/dL Hct (39.0-53.0) % MCHC (31.0-37.0) g/dL Lymphocytes # (1.0-4.8) k/uL ABG pO2 (83-108) mmHg ABG HCO3 (21-25) mmol/L ABG Total CO2 (19-24) mmol/L ABG O2 Saturation (94-97) % BUN (9-20) mg/dL Creatinine (0.66-1.25) mg/dL Glucose (74-99) mg/dL POC Glucose (mg/dL) 144 H 184 H 177 H (75-99) mg/dL Calcium (8.4-10.2) mg/dL Phosphorus (2.5-4.5) mg/dL Magnesium (1.6-2.3) mg/dL 02/27/18 02/28/18 02/28/18 Range/Units 23:45 03:21 04:20 RBC (4.30-5.90) m/uL Hgb (13.0-17.5) gm/dL Hct (39.0-53.0) % MCHC (31.0-37.0) g/dL Lymphocytes # (1.0-4.8) k/uL ABG pO2 (83-108) mmHg ABG HCO3 (21-25) mmol/L ABG Total CO2 (19-24) mmol/L ABG O2 Saturation (94-97) % BUN 94 H (9-20) mg/dL Creatinine 5.64 H (0.66-1.25) mg/dL Glucose 115 H (74-99) mg/dL POC Glucose (mg/dL) 170 H 127 H (75-99) mg/dL Calcium 8.3 L (8.4-10.2) mg/dL Phosphorus 6.5 H (2.5-4.5) mg/dL Magnesium 2.4 H (1.6-2.3) mg/dL 02/28/18 02/28/18 02/28/18 Range/Units 04:20 05:00 07:29 RBC 2.46 L (4.30-5.90) m/uL Hgb 7.0 L (13.0-17.5) gm/dL Hct 23.1 L (39.0-53.0) % MCHC 30.5 L (31.0-37.0) g/dL Lymphocytes # 0.6 L (1.0-4.8) k/uL ABG pO2 114 H (83-108) mmHg ABG HCO3 27 H (21-25) mmol/L ABG Total CO2 28 H (19-24) mmol/L ABG O2 Saturation 99.3 H (94-97) % BUN (9-20) mg/dL Creatinine (0.66-1.25) mg/dL Glucose (74-99) mg/dL POC Glucose (mg/dL) 130 H (75-99) mg/dL Calcium (8.4-10.2) mg/dL Phosphorus (2.5-4.5) mg/dL Magnesium (1.6-2.3) mg/dL Microbiology - Last 24 Hours (Table) 02/24/18 05:25 Blood Culture - Preliminary Blood No Growth after 96 hours 02/24/18 05:07 Blood Culture - Preliminary Blood No Growth after 96 hours 02/24/18 03:05 Anaerobic Culture - Final Penis Anaerobic Gm Negative Bacilli Anaerobic Gm Negative Bacilli#2 Anaerobic Gram Positive Cocci Assessment and Plan Assessment: Assessment Acute pulmonary edema with hypoxemic respiratory failure secondary to diastolic dysfunction Intubation with mechanical ventilation on February 20 for respiratory failure Postop day #1, status post tracheostomy and PEG tube placement on February 27 Profound hypoglycemia on presentation Serratia marcescens and oxacillin sensitive staph aureus tracheobronchitis/ bronchopneumonia Significant anoxic/metabolic encephalopathy. 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 History of hepatitis C infection History of chronic liver disease History of gout History of deep venous thrombosis History of chronic back pain Remote history of IV drug abuse History of hypertensive urgency Stage V chronic kidney disease Penile discharge, rule out bacterial urethritis Plan: Plan dated 02/24/2018 CODE STATUS will have to be addressed in this individual. The patient's mental status is very poor as mentioned above. If the family wants to continue with life support, the patient will need an early tracheostomy and PEG tube placement. The patient could then be sent to select specialty or some sort of chronic ventilator facility. In addition, if the patient does not want this, we might consider terminal weaning. CODE STATUS needs to be addressed so. Microbiology is negative. White count 11.2, hemoglobin 7.8, hematocrit 24.5, and platelet count is normal. In addition, sodium potassium chloride CO2 normal. Anion gap a bit high at 14. BUN and creatinine were 106 and 5.91. Closed his baseline and he has not required hemodialysis. Medications are reviewed. Chest x-ray shows bilateral small effusions. Again overall prognosis remains extremely poor. Medications are reviewed. Critical care time 33 minutes Plan dated 02/25/2018 I spent a long time talking to the sister yesterday. Unfortunately, she would like the patient to have a tracheostomy and PEG tube placement hoping they on hold but the patient will recover neurologic function. We'll consult one of the surgeons for that. In addition, the patient was started on Rocephin for a purulent penile discharge. The patient remains on my support. Neurologic examination is poor. EEG is consistent with profound anoxic/metabolic encephalopathy. White count 15, hemoglobin 7.8, hematocrit 24.8 and platelet count 341,000. Sodium potassium chloride CO2 all normal. Anion gap normal. BUN 116 with creatinine 6.30. Thus far, all microbiologic studies are negative. Again, the patient was started on Rocephin for a purulent penile discharge. Repeat cultures have been done. Medications labs and x-rays are all reviewed. Critical care time 33 minutes Plan dated 02/26/2018 The patient is apparently scheduled to have a hemodialysis catheter placed today and have hemodialysis today. He does need that. Obviously, the PEG and trach cannot be done until tomorrow. We'll resume his tube feeds. Currently remains on the ventilator. Neurologic examination is unchanged. Sputum showing gram-negative bacilli and presumptive staph. Chest x-ray shows diffuse bilateral infiltrates. White count 11.1 hemoglobin 7.4 hematocrit 23.6 and platelet count 308,000. Sodium potassium chloride CO2 all normal. Anion gap is 11. BUN was 131 with a creatinine of 6.60. Yesterday, BUN was 116 with a creatinine of 6.30. Medications, labs, and x-rays all reviewed. Diagnosis is very poor. We will continue to follow. His sister is okay with tracheostomy and PEG tube placement and long-term placement in a ventilator facility. Critical care time 34 minutes Plan dated 02/27/2018 The patient's antibiotics will be changed to Levaquin, which should cover both the Serratia and oxacillin sensitive staph aureus. White count is 8.1 hemoglobin 7.1 hematocrit 22.9 and platelet count is normal. Sodium potassium chloride CO2 all normal. Anion gap is 11. BUN is 110 and creatinine 5.81 chest x-ray is consistent with mild fluid overload. Hemodialysis catheter was placed. X-rays labs and medications are all reviewed. Additional recommendations and suggestions are forthcoming. Prognosis is poor. We've had the chronic ventilator facility evaluate the patient. Critical care time 33 minutes Plan dated 02/28/2018 The patient had his tracheostomy and PEG tube placed yesterday on February 27. The patient appears to be a bit more awake today. We will find out from the marketing trainee or case mgr about transfer to a long-term acute care facility. The patient remains on Maxipime as his antibiotic. White count 4.6, hemoglobin 7, hematocrit 23.1 and platelet count is normal. Sodium potassium chloride CO2 all normal. Anion gap is 11. BUN and creatinine were 94 and 5.64 respectively. Prognosis is still poor. Possible discharge in the next day or so to a chronic ventilator facility. We'll continue with antibiotic. Mental status is slightly improved but still very poor. Tube feeds will be resumed later today. Critical care time 34 minutes Time with Patient: Greater than 30
[2018-02-28 12:35] LABS: Glucose,Whole Blood 173 mg/dL (75-99)
--- NOTE | 2018-02-28 12:41 | CDI ---
Last Revision, May 2017 Documentation Clarification Form Date: 02/28/2018 12:19:59 PM From: Maranda Hawk RN, CCDS Admit Date: 02/20/2018 2:14:00 AM Patient Name: Soren Mireles Visit Number: [id number] ATTENTION: The Clinical Documentation Specialists (CDI) and [facility] Coding Staff appreciate your assistance in clarifying documentation. Please respond to the clarification below the line at the bottom and electronically sign. The CDI & [facility] Coding staff will review the response and follow-up if needed. Please note: Queries are made part of the Legal Health Record. If you have any questions, please contact the author of this message via ITS. Dr. Kaufman Malnutrition has been documented in OP Note for PEG tube placement. Please provide further specificity. History/Risk Factors: COPD, DM, GERD, Hyperlipidemia, HTN, Liver Disease, A/C renal failure, acute hypoxic respiratory failure Clinical Indicators: Labs: Albumin: 2.7 Total Protein: 5.9 Current BMI: 22.7- weight adjusted for BKA Insufficient energy intake: Pt NPO with Trach and PEG with tube feedings Treatment: Dietary Consult: completed w/ reassessment Q 3 days Tube feeding - Nepro @ 42 ml/hr Lab monitoring: am daily 02/27 PEG Tube Placement Ferric sodium Gluconate IVPB QD IVPB KCL Replacement Protocol Vitamin B-1 In your professional opinion, can you please clarify if these findings signify one of the following conditions? Mild Protein-Calorie Malnutrition Moderate Protein-Calorie Malnutrition Severe Protein-Calorie Malnutrition Other condition, please specify Unable to determine Please continue to document in your progress notes and discharge summary in order to capture severity of illness and risk of mortality. Include clinical findings that support your diagnosis.. unable to determine MTDD
--- NOTE | 2018-02-28 15:24 | P.PN ---
Subjective Progress Note Date: 02/28/18 Principal diagnosis: Respiratory failure Patient stable on ventilator. Remains lethargic. Tolerating low-dose tube feeds. Objective - Vital Signs Vital signs: Vital Signs Temp 98.7 F 02/28/18 12:00 Pulse 71 02/28/18 12:00 Resp 15 02/28/18 12:00 BP 151/82 02/27/18 19:00 Pulse Ox 98 02/28/18 12:00 Intake & Output 02/27/18 02/28/18 02/28/18 18:59 06:59 18:59 Intake Total 718 283 175 Output Total 177 165 95 Balance 541 118 80 Weight 75.8 kg 75.8 kg Intake: IV 408 283 165 NS 190 200 100 Pressure bag 18 33 15 Valproate Sodium 750 mg 50 50 50 In Sodium Chloride 0.9% 50 ml @ 50 mls/hr IVPB TID [facility] Rx#:[id number] Intake, IV Titration 250 Amount Cefepime 1 gm In Sodium 50 Chloride 0.9% 50 ml @ 100 mls/hr IVPB DAILY@1700 [facility] Rx#:[id number] Potassium Chloride 20 meq 200 In Water For Injection 1 100ml.bag @ 50 mls/hr IVPB Q2HR [facility] Rx#: [id number] Tube Feeding 0 0 10 Other 60 Output: Urine 172 165 95 Estimated Blood Loss 5 Other: Voiding Method Indwelling Catheter Indwelling Catheter Indwelling Catheter ABP, PAP, CO, CI - Last Documented Arterial Blood Pressure 144/65 - Exam Tracheostomy and PEG tube site clean without significant drainage - Labs CBC & Chem 7: 02/28/18 04:20 02/28/18 04:20 Labs: Abnormal Lab Results - Last 24 Hours (Table) 02/27/18 02/27/18 02/27/18 Range/Units 17:00 20:33 23:45 RBC (4.30-5.90) m/uL Hgb (13.0-17.5) gm/dL Hct (39.0-53.0) % MCHC (31.0-37.0) g/dL Lymphocytes # (1.0-4.8) k/uL ABG pO2 (83-108) mmHg ABG HCO3 (21-25) mmol/L ABG Total CO2 (19-24) mmol/L ABG O2 Saturation (94-97) % BUN (9-20) mg/dL Creatinine (0.66-1.25) mg/dL Glucose (74-99) mg/dL POC Glucose (mg/dL) 184 H 177 H 170 H (75-99) mg/dL Calcium (8.4-10.2) mg/dL Phosphorus (2.5-4.5) mg/dL Magnesium (1.6-2.3) mg/dL Crossmatch 02/28/18 02/28/18 02/28/18 Range/Units 03:21 04:20 04:20 RBC 2.46 L (4.30-5.90) m/uL Hgb 7.0 L (13.0-17.5) gm/dL Hct 23.1 L (39.0-53.0) % MCHC 30.5 L (31.0-37.0) g/dL Lymphocytes # 0.6 L (1.0-4.8) k/uL ABG pO2 (83-108) mmHg ABG HCO3 (21-25) mmol/L ABG Total CO2 (19-24) mmol/L ABG O2 Saturation (94-97) % BUN 94 H (9-20) mg/dL Creatinine 5.64 H (0.66-1.25) mg/dL Glucose 115 H (74-99) mg/dL POC Glucose (mg/dL) 127 H (75-99) mg/dL Calcium 8.3 L (8.4-10.2) mg/dL Phosphorus 6.5 H (2.5-4.5) mg/dL Magnesium 2.4 H (1.6-2.3) mg/dL Crossmatch 02/28/18 02/28/18 02/28/18 Range/Units 05:00 07:29 12:32 RBC (4.30-5.90) m/uL Hgb (13.0-17.5) gm/dL Hct (39.0-53.0) % MCHC (31.0-37.0) g/dL Lymphocytes # (1.0-4.8) k/uL ABG pO2 114 H (83-108) mmHg ABG HCO3 27 H (21-25) mmol/L ABG Total CO2 28 H (19-24) mmol/L ABG O2 Saturation 99.3 H (94-97) % BUN (9-20) mg/dL Creatinine (0.66-1.25) mg/dL Glucose (74-99) mg/dL POC Glucose (mg/dL) 130 H 173 H (75-99) mg/dL Calcium (8.4-10.2) mg/dL Phosphorus (2.5-4.5) mg/dL Magnesium (1.6-2.3) mg/dL Crossmatch 02/28/18 Range/Units 12:55 RBC (4.30-5.90) m/uL Hgb (13.0-17.5) gm/dL Hct (39.0-53.0) % MCHC (31.0-37.0) g/dL Lymphocytes # (1.0-4.8) k/uL ABG pO2 (83-108) mmHg ABG HCO3 (21-25) mmol/L ABG Total CO2 (19-24) mmol/L ABG O2 Saturation (94-97) % BUN (9-20) mg/dL Creatinine (0.66-1.25) mg/dL Glucose (74-99) mg/dL POC Glucose (mg/dL) (75-99) mg/dL Calcium (8.4-10.2) mg/dL Phosphorus (2.5-4.5) mg/dL Magnesium (1.6-2.3) mg/dL Crossmatch See Detail Microbiology - Last 24 Hours (Table) 02/24/18 05:25 Blood Culture - Preliminary Blood No Growth after 96 hours 02/24/18 05:07 Blood Culture - Preliminary Blood No Growth after 96 hours 02/24/18 03:05 Anaerobic Culture - Final Penis Anaerobic Gm Negative Bacilli Anaerobic Gm Negative Bacilli#2 Anaerobic Gram Positive Cocci Assessment and Plan (1) Respiratory failure Narrative/Plan: Continue low-dose tube feeds. Advance as tolerated. Will follow. Current Visit: Yes Status: Acute Code(s): J96.90 - RESPIRATORY FAILURE, UNSP , UNSP W HYPOXIA OR HYPERCAPNIA SNOMED Code(s): 404244560
[2018-02-28 16:56] LABS: Glucose,Whole Blood 164 mg/dL (75-99)
--- NOTE | 2018-02-28 17:09 | PN ---
PROGRESS NOTE DATE OF SERVICE: 02/28/2018. REASON FOR FOLLOW UP: Serratia marcescens with MSSA pneumonia. INTERVAL HISTORY: The patient is currently afebrile. He is hemodynamically stable. Currently undergoing dialysis. Sedation has been cut. spontaneous opening of his eyes, but unable to answer any question. Cefepime has been started. Tolerating it so far. No significant diarrhea per nursing staff. EXAMINATION: Blood pressure 144/55 with a pulse of 73, temperature 98.7. He is 98% on 30% FiO2. General description is an elderly male lying in bed in no distress. RESPIRATORY SYSTEM: Unlabored breathing with decreased breath sounds in the bases. No wheeze. HEART: S1, S2. Regular rate and rhythm. ABDOMEN: Soft, no tenderness. EXTREMITIES: No edema feet. LABS: Hemoglobin 7, white count 4.6, BUN of 94, creatinine 5.64. DIAGNOSTIC IMPRESSION AND PLAN: Patient with a component of pneumonia with sputum showing Serratia marcescens and MSSA. The patient is currently covered with cefepime to cover for both pathogens. Will continue to monitor the patient closely. Continue supportive care. MMODL / IJN: [id number] /
[2018-02-28] MEDS: CEFEPIME 1 GM in SODIUM CHLORIDE 0.9% 50 ML IVPB SCH (17:17)
[2018-02-28 20:09] LABS: Glucose,Whole Blood 159 mg/dL (75-99)
[2018-02-28] MEDS: ATORVASTATIN 10 MG TAB PO SCH (20:38)
--- NOTE | 2018-02-28 23:22 | P.PN ---
Subjective Patient is a 67-year-old -[place] male who is being followed by the neurology service for possible seizure. Patient was brought to [facility] emergency room with shortness of breath. He was found to have significant pulmonary edema. Patient does have stage IV chronic kidney disease. Patient was being treated in the emergency room when one of the nurses noted patient to be unresponsive. Patient had questionable jerking activity. Patient had significant hypoglycemia in the 20s. He was given D50, intubated and sedated. Patient is currently in the ICU. Computed tomography scan of the brain was done which showed no acute abnormality. Computed tomography scan did show evidence of mild generalized atrophy. Patient was noted to have some rhythmic jerking. Patient was taken off propofol and had an EEG done. EEG showed generalized slowing of the background rhythm. EEG also showed significant triphasic waves which is commonly seen in hepatic pathology. Myoclonic activity was described. Patient was started on Depakote 500 mg every 12 hours IV. Staff reports no further jerking movements since starting Depakote. Patient remains sedated with propofol and on mechanical ventilation. acute kidney injury on chronic kidney disease. Patient has chronic kidney disease stage IV secondary to biopsy-proven diabetic kidney disease with severe chronicity. His baseline creatinine has been in the range of 4-5. Creatinine was 7.65 on admission 02/23/2018 this is my first day taking care of the pt , pt is still on vent , he has been off sedation , however he is still not waking up as expected . pt could have metabolic encephalopathy , vs other . pt with acute on chronic Kidney disease stage IV. nephrology are following the case .Creatinine was 7.65 on admission and is 5.99 today. pt is been seen by neurology who recommended to repeat the EEG and result is pending.pt had subtherapeutic level and extra doses were provided for him yesterday EEG from 02/21: abnormal with significant triphasic waves which is commonly seen in hepatic encephalopahty pt still does not respond to pain stimuli. despite been off sedation since this morning. pupils are equal and reactive to light, meningeal signs were absent when i examined the pt this morning pt has h/o Hep C and B , we will check ammonia level and other work up like B12 ,thyroid function test, syphlis screen ,repeat CT of the head ,with neurology follow up. no fever , no leukocytosis 02/24/2018 no change from yesterday in his mental status from the first time a saw her , still unresponsive , neurologist team is following the pt and recommended repeat EEG. critical care input is appreciated . ammonia level and TSH were negative , repeat CT head is negative for acute process as well 02/25/2018 Patient remains unresponsive as before. Repeat EEG showing moderate encephalopathy, significant triphasic waves consistent with hepatic disease. Occasional sharp wave consistent with due to seizure threshold. But no generalized epileptiform discharge. Patient is a plan to have trach placed on the surgical site. As well as dialysis catheter for dialysis. Patient has Delcid catheter with 40 mL in the bag. There is purulent discharge from the penis. Discussed with staff. Check culture for the discharge, change. AND CHECK BLADDER SCAN 02/26/2018 Patient remains unresponsive, the same. Patient had a dialysis catheter placed. Than his going for hemodialysis currently. Patient has been evaluated by doubler operator on their input is appreciated. Patient is planned for going for PEG and tracheostomy possibly tomorrow, as per family wishes. To call care consult is appreciated. He has positive sputum culture was fracture and staphylococcus. urine discharge so there was has been changed. Urine culture is pending. We'll consult infectious diseases specialist. Patient with mild leukocytosis 02/27/2018 No improvement in the patient mental status, he remains unresponsive and intubated. Went for dialysis yesterday and today. And PEG tube with check estimated are planned for the patient's in 1 or 2 days. Prognosis remains very poor. The sputum culture is growing Serratia and staph aureus. ID consult is appreciated and patient was started on cefepime. Also patient got IV vancomycin doses . Pulmonary/critical care input is appreciated. Hemoglobin at 7.1. No leukocytosis. He had fever yesterday at 100.2 02/28/2018 pt is unresponsive, intubated , he is undergoing hemodialysis , and he is on antibiotic , he is responding a little bit to suctioning his mouth but only minimally , prognosis remains poor and guarded. pt had PEG and treacheostomy, he remains on cefepime per ID recommendation . pt has Serratia marcescens and staph aureus. while his penile c/s showing many gr-ve bacilli (areobic and unaerobic) and gram positive cocci (unaerobic) Review of system: N/a Medication with dosages were reviewed including Tylenol 325 mg, November up 0.5-3 mg. Norvasc 10 mg. Lipitor 10 mg. Calcium acetate 667 mg. Ceftriaxone 1000 mg. Chlorhexidine. Clonidine 0.3 mg patch. Lasix 8 mg. Neurontin 100 mg. Heparin 5000 unit. Hydralazine 40 mg. NovoLog sliding scale. Labetalol 400 mg. Narcan 0.2 mg. protonix 40 mg. propofol on hold. sodium bicarb 650 mg. flomax 0.4 mg. thiamine 100 mg. valproic acid 750 mg. Objective - Vital Signs Vital signs: Vital Signs Temp 98.9 F 02/28/18 20:00 Pulse 75 02/28/18 20:40 Resp 14 02/28/18 20:30 BP 164/72 02/28/18 18:13 Pulse Ox 97 02/28/18 20:30 Intake & Output 02/28/18 02/28/18 03/01/18 06:59 18:59 06:59 Intake Total 283 806 159 Output Total 165 187 42 Balance 118 619 117 Weight 75.8 kg 75.8 kg Intake: IV 283 376 69 NS 200 240 60 Pressure bag 33 36 9 Valproate Sodium 750 mg 50 100 In Sodium Chloride 0.9% 50 ml @ 50 mls/hr IVPB TID [facility] Rx#:[id number] Tube Feeding 0 90 60 Blood Product 310 Rc Pheresis As-3 Unit 310 [id number] Other 30 30 Output: Urine 165 187 42 Other: Voiding Method Indwelling Catheter Indwelling Catheter Indwelling Catheter ABP, PAP, CO, CI - Last Documented Arterial Blood Pressure 157/61 - Exam -GENERAL: The patient is unresponsive , does not open eyes,intubated. not in any acute distress. Well developed, HEENT: Pupils are round and equally reacting to light. EOMI. No scleral icterus. No conjunctival pallor. Normocephalic, atraumatic. No pharyngeal erythema. No thyromegaly. CARDIOVASCULAR: S1 and S2 present. No murmurs, rubs, or gallops. -PULMONARY: Chest is clear to auscultation, no wheezing. Bilateral scattered crackles. ABDOMEN: Soft, nontender, nondistended, normoactive bowel sounds. No palpable organomegaly. MUSCULOSKELETAL: No joint swelling or deformity. EXTREMITIES: No cyanosis, clubbing, or pedal edema. -s/p right BKA -NEUROLOGICAL: unresponsive to verbal or painful stinuli, does not open eyes. SKIN: No rashes. - Labs CBC & Chem 7: 02/28/18 04:20 02/28/18 04:20 Labs: Abnormal Lab Results - Last 24 Hours (Table) 02/27/18 02/28/18 02/28/18 Range/Units 23:45 03:21 04:20 RBC (4.30-5.90) m/uL Hgb (13.0-17.5) gm/dL Hct (39.0-53.0) % MCHC (31.0-37.0) g/dL Lymphocytes # (1.0-4.8) k/uL ABG pO2 (83-108) mmHg ABG HCO3 (21-25) mmol/L ABG Total CO2 (19-24) mmol/L ABG O2 Saturation (94-97) % BUN 94 H (9-20) mg/dL Creatinine 5.64 H (0.66-1.25) mg/dL Glucose 115 H (74-99) mg/dL POC Glucose (mg/dL) 170 H 127 H (75-99) mg/dL Calcium 8.3 L (8.4-10.2) mg/dL Phosphorus 6.5 H (2.5-4.5) mg/dL Magnesium 2.4 H (1.6-2.3) mg/dL Crossmatch 02/28/18 02/28/18 02/28/18 Range/Units 04:20 05:00 07:29 RBC 2.46 L (4.30-5.90) m/uL Hgb 7.0 L (13.0-17.5) gm/dL Hct 23.1 L (39.0-53.0) % MCHC 30.5 L (31.0-37.0) g/dL Lymphocytes # 0.6 L (1.0-4.8) k/uL ABG pO2 114 H (83-108) mmHg ABG HCO3 27 H (21-25) mmol/L ABG Total CO2 28 H (19-24) mmol/L ABG O2 Saturation 99.3 H (94-97) % BUN (9-20) mg/dL Creatinine (0.66-1.25) mg/dL Glucose (74-99) mg/dL POC Glucose (mg/dL) 130 H (75-99) mg/dL Calcium (8.4-10.2) mg/dL Phosphorus (2.5-4.5) mg/dL Magnesium (1.6-2.3) mg/dL Crossmatch 02/28/18 02/28/18 02/28/18 Range/Units 12:32 12:55 16:55 RBC (4.30-5.90) m/uL Hgb (13.0-17.5) gm/dL Hct (39.0-53.0) % MCHC (31.0-37.0) g/dL Lymphocytes # (1.0-4.8) k/uL ABG pO2 (83-108) mmHg ABG HCO3 (21-25) mmol/L ABG Total CO2 (19-24) mmol/L ABG O2 Saturation (94-97) % BUN (9-20) mg/dL Creatinine (0.66-1.25) mg/dL Glucose (74-99) mg/dL POC Glucose (mg/dL) 173 H 164 H (75-99) mg/dL Calcium (8.4-10.2) mg/dL Phosphorus (2.5-4.5) mg/dL Magnesium (1.6-2.3) mg/dL Crossmatch See Detail 02/28/18 Range/Units 20:07 RBC (4.30-5.90) m/uL Hgb (13.0-17.5) gm/dL Hct (39.0-53.0) % MCHC (31.0-37.0) g/dL Lymphocytes # (1.0-4.8) k/uL ABG pO2 (83-108) mmHg ABG HCO3 (21-25) mmol/L ABG Total CO2 (19-24) mmol/L ABG O2 Saturation (94-97) % BUN (9-20) mg/dL Creatinine (0.66-1.25) mg/dL Glucose (74-99) mg/dL POC Glucose (mg/dL) 159 H (75-99) mg/dL Calcium (8.4-10.2) mg/dL Phosphorus (2.5-4.5) mg/dL Magnesium (1.6-2.3) mg/dL Crossmatch Microbiology - Last 24 Hours (Table) 02/24/18 05:25 Blood Culture - Preliminary Blood No Growth after 96 hours 02/24/18 05:07 Blood Culture - Preliminary Blood No Growth after 96 hours Assessment and Plan Plan: Assessment and Plan -Acute hypoxic respiratory failure: Secondary to congestive heart failure chronic diastolic dysfunction with acute exacerbation patient , with other causes occluded. He was started on high-dose of Lasix. Continuing with the ventilatory support, diurese well improved creatinine with Lasix. Improving -possible seizure related to low glu , neurology team is following the pt , on depakote and level checked as per neuro team recommendation -acute on chronic renal failure , f/u with nephrology. Patient is getting hemodialysis -metabolic encephalopathy , possibly secondary to all above -Sepsis with possible tracheobronchitis, positive sputum culture. Patient on antibiotic. 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 -Hypotension is possibly secondary to sedation antidepressive medications will be held and restarted as needed. Hyperlipidemia -Episode of seizure believed to be secondary to hypoglycemia and encephalopathy EEG showed diffuse slowing. patient has metabolic and toxic encephalopathy -Possible Tarrs discharge from the penile orifice. Culture: Pending DVT and GI px. pt is on heparin and protonix prognosis is very poor
[2018-03-01 00:05] LABS: Glucose,Whole Blood 154 mg/dL (75-99)
[2018-03-01] MEDS: INSULIN ASPART 100 UNIT/ML 1 ML 10 ML VIAL SQ SCH ×6 (00:11→20:06)
[2018-03-01] MEDS: HEPARIN SODIUM,PORCINE 5,000 UNIT/ML 1 ML VIAL SQ SCH ×3 (00:11→17:14)
[2018-03-01] MEDS: IPRATROPIUM-ALBUTEROL 3 ML NEB INHALATION SCH ×6 (00:16→19:00)
[2018-03-01 00:57] LABS: HCT 25.7 % (39.0-53.0); HGB 7.9 gm/dL (13.0-17.5); Hypochromasia Slight; MCH 28.3 pg (25.0-35.0); MCHC 30.8 g/dL (31.0-37.0); MCV 91.9 fL (80.0-100.0); Platelet Count 245 k/uL (150-450); RDW 14.7 % (11.5-15.5); WBC 6.8 k/uL (3.8-10.6)
[2018-03-01] MEDS: hydrALAZINE HCL 20 MG/ML 1 ML VIAL IVP PRN (02:52)
[2018-03-01 04:01] LABS: Glucose,Whole Blood 204 mg/dL (75-99)
[2018-03-01 05:02] LABS: ABG Base Excess 1.7 mmol/L; ABG HCO3 26 mmol/L (21-25); ABG Oxygen Saturation 98.6 % (94-97); ABG PCO2 37 mmHg (35-45); ABG PH 7.45 (7.35-7.45); ABG PO2 93 mmHg (83-108); ABG TCO2 27 mmol/L (19-24)
[2018-03-01 05:24] LABS: Basophils % (A) 0 %; Eosinophils # (A) 0.1 k/uL (0-0.7); Eosinophils % (A) 1 %; HCT 26.4 % (39.0-53.0); HGB 8.4 gm/dL (13.0-17.5); Hypochromasia Moderate; Lymphocytes # (A) 0.7 k/uL (1.0-4.8); Lymphocytes % (A) 10 %; MCH 29.6 pg (25.0-35.0); MCHC 31.8 g/dL (31.0-37.0); MCV 93.2 fL (80.0-100.0); Mean Platelet Volume 7.5; Monocytes # (A) 0.5 k/uL (0-1.0); Monocytes % (A) 7 %; Neutrophils # (A) 5.6 k/uL (1.3-7.7); Neutrophils % (A) 81 %; Platelet Count 254 k/uL (150-450); RBC 2.83 m/uL (4.30-5.90); RDW 14.7 % (11.5-15.5); WBC 6.9 k/uL (3.8-10.6)
[2018-03-01 05:55] LABS: Calcium 8.4 mg/dL (8.4-10.2); Magnesium 2.3 mg/dL (1.6-2.3)
[2018-03-01 06:00] LABS: Valproic Acid (Depakene) 49.8 ug/mL
--- NOTE | 2018-03-01 07:14 | XR ---
EXAMINATION TYPE: XR chest 1V portable DATE OF EXAM: 03/01/2018 HISTORY: intubated and OG in place. REFERENCE: Previous study dated 02/28/2018. FINDINGS: A tracheostomy tube remains in place. Its tip overlies the tracheal air column in this sing le frontal projection. A right subclavian catheter is in place. Its tip is at the cavoatrial junction . Bibasilar airspace disease, worse on the left than the right. There are small, bilateral effusions, w orse on the left than the right. The heart is mildly enlarged. There has been no interval change in t he appearance of the chest. IMPRESSION: NO SIGNIFICANT INTERVAL CHANGE IN THE APPEARANCE OF THE CHEST.
[2018-03-01 08:11] LABS: Glucose,Whole Blood 221 mg/dL (75-99)
[2018-03-01] MEDS: CALCIUM ACETATE 667 MG CAP PO SCH ×3 (08:26→17:15)
[2018-03-01] MEDS: amLODIPine 10 MG TAB PO SCH (08:27)
[2018-03-01] MEDS: CHLORHEXIDINE GLUCONATE 15 ML CUP MUCOUS MEM SCH ×2 (08:27→21:11)
[2018-03-01] MEDS: FUROSEMIDE 10 MG/ML 10 ML VIAL IV SCH ×2 (08:27→21:11)
[2018-03-01] MEDS: GABAPENTIN 100 MG CAP PO SCH ×3 (08:27→21:11)
[2018-03-01] MEDS: THIAMINE 100 MG/ML 2 ML VIAL IVP SCH (08:28)
[2018-03-01] MEDS: TAMSULOSIN 0.4 MG CAP.ER.24H PO SCH (08:28)
[2018-03-01] MEDS: LABETALOL 200 MG TAB PO SCH ×3 (08:28→21:13)
[2018-03-01] MEDS: PANTOPRAZOLE 40 MG/10 ML VIAL IVP SCH (08:28)
[2018-03-01] MEDS: SODIUM BICARBONATE TAB 650 MG TAB PO SCH (08:28)
[2018-03-01] MEDS: VALPROATE SODIUM 750 MG in SODIUM CHLORIDE 0.9% 50 ML IVPB SCH ×3 (08:31→21:12)
--- NOTE | 2018-03-01 09:50 | P.PN ---
Subjective Progress Note Date: 03/01/18 Principal diagnosis: This is a 67-year-old male known with chronic kidney disease stage IV, secondary to diabetic nephropathy with biopsy. He came in because of hyperkalemia acute kidney injury and was started on dialysis. He is obtunded and unresponsive on the vent in the ICU. He has been dialyzed on February 26. He has remained stable since but without regaining consciousness so far. He was noted to be hypoglycemic in the emergency room with blood sugar less than 20. Hemodynamically stable, urine output is 397 for the last 24 hours. He has a Delcid catheter. Objective - Vital Signs Vital signs: Vital Signs Temp 98.6 F 03/01/18 08:00 Pulse 71 03/01/18 08:30 Resp 14 03/01/18 08:30 BP 164/72 02/28/18 18:13 Pulse Ox 99 03/01/18 08:30 Intake & Output 02/28/18 03/01/18 03/01/18 18:59 06:59 18:59 Intake Total 806 739 133 Output Total 187 210 10 Balance 619 529 123 Weight 75.8 kg 74.4 kg Intake: IV 376 299 63 NS 240 260 10 Pressure bag 36 39 3 Valproate Sodium 750 mg 100 50 In Sodium Chloride 0.9% 50 ml @ 50 mls/hr IVPB TID [facility] Rx#:[id number] Tube Feeding 90 350 40 Blood Product 310 Rc Pheresis As-3 Unit 310 [id number] Other 30 90 30 Output: Urine 187 210 10 Other: Voiding Method Indwelling Catheter Indwelling Catheter ABP, PAP, CO, CI - Last Documented Arterial Blood Pressure 161/67 On examination on the vent, 30% FiO2. Pupils are equal and reactive. Neck is supple no facial asymmetry Lungs are clear to auscultation fair air entry bilaterally Heart sounds are unremarkable he is in normal sinus rhythm Abdomen soft and scaphoid no masses felt Extremity exam was BKA on the right and left 1 toe amputation remotely. Trace edema noted. Neurologically obtunded unresponsive to pain. - Labs CBC & Chem 7: 03/01/18 04:49 03/01/18 04:49 Labs: Abnormal Lab Results - Last 24 Hours (Table) 02/28/18 02/28/18 02/28/18 Range/Units 12:32 12:55 16:55 RBC (4.30-5.90) m/uL Hgb (13.0-17.5) gm/dL Hct (39.0-53.0) % MCHC (31.0-37.0) g/dL Lymphocytes # (1.0-4.8) k/uL ABG HCO3 (21-25) mmol/L ABG Total CO2 (19-24) mmol/L ABG O2 Saturation (94-97) % BUN (9-20) mg/dL Creatinine (0.66-1.25) mg/dL Glucose (74-99) mg/dL POC Glucose (mg/dL) 173 H 164 H (75-99) mg/dL Phosphorus (2.5-4.5) mg/dL Crossmatch See Detail 02/28/18 03/01/18 03/01/18 Range/Units 20:07 00:02 00:50 RBC 2.80 L (4.30-5.90) m/uL Hgb 7.9 L (13.0-17.5) gm/dL Hct 25.7 L (39.0-53.0) % MCHC 30.8 L (31.0-37.0) g/dL Lymphocytes # (1.0-4.8) k/uL ABG HCO3 (21-25) mmol/L ABG Total CO2 (19-24) mmol/L ABG O2 Saturation (94-97) % BUN (9-20) mg/dL Creatinine (0.66-1.25) mg/dL Glucose (74-99) mg/dL POC Glucose (mg/dL) 159 H 154 H (75-99) mg/dL Phosphorus (2.5-4.5) mg/dL Crossmatch 03/01/18 03/01/18 03/01/18 Range/Units 03:59 04:49 04:49 RBC 2.83 L (4.30-5.90) m/uL Hgb 8.4 L (13.0-17.5) gm/dL Hct 26.4 L (39.0-53.0) % MCHC (31.0-37.0) g/dL Lymphocytes # 0.7 L (1.0-4.8) k/uL ABG HCO3 (21-25) mmol/L ABG Total CO2 (19-24) mmol/L ABG O2 Saturation (94-97) % BUN 77 H (9-20) mg/dL Creatinine 5.20 H (0.66-1.25) mg/dL Glucose 208 H (74-99) mg/dL POC Glucose (mg/dL) 204 H (75-99) mg/dL Phosphorus 6.0 H (2.5-4.5) mg/dL Crossmatch 03/01/18 03/01/18 Range/Units 04:58 08:09 RBC (4.30-5.90) m/uL Hgb (13.0-17.5) gm/dL Hct (39.0-53.0) % MCHC (31.0-37.0) g/dL Lymphocytes # (1.0-4.8) k/uL ABG HCO3 26 H (21-25) mmol/L ABG Total CO2 27 H (19-24) mmol/L ABG O2 Saturation 98.6 H (94-97) % BUN (9-20) mg/dL Creatinine (0.66-1.25) mg/dL Glucose (74-99) mg/dL POC Glucose (mg/dL) 221 H (75-99) mg/dL Phosphorus (2.5-4.5) mg/dL Crossmatch Microbiology - Last 24 Hours (Table) 02/24/18 05:25 Blood Culture - Preliminary Blood No Growth after 120 hours 02/24/18 05:07 Blood Culture - Preliminary Blood No Growth after 120 hours Assessment and Plan Assessment: Impression 1. Chronic kidney disease secondary diabetic nephropathy stage IV, with acute kidney injury. Hemodialysis dependent dialysis, dialysis was started on the and continued on and February with a Kulwant catheter. No significant urine output and therefore no significant recovery yet. Last dialysis therefore was 2 days ago 2. Ventilator dependent respiratory failure on peritoneal FiO2 stable. 3. Remote right BKA and left toe amputation. 4. Hypoglycemia and encephalopathy with blood sugar less than 20 at the time of admission. 5. History of hep C. 6. Anemia of chronic kidney disease. Iron saturation is 10% dated 02/21/2018. 7. Tract and PEG placed Recommendation. 1. Maintain dialysis and we will dialyze him today for 3 to half hours with minimal ultrafiltration of about a liter. 2. Check and monitor hemoglobin calcium phosphorus albumin and maintain adequate nutritional support with 1.5 g of protein per kilogram body weight.
--- NOTE | 2018-03-01 10:02 | P.PN ---
Progress Note - Text Progress Note Date: 03/01/18 Patient remains unresponsive. White blood cell count is normal. Tolerating tube feeds. No problems with the tracheostomy.
--- NOTE | 2018-03-01 11:20 | P.PN ---
Subjective Progress Note Date: 03/01/18 Principal diagnosis: Renal failure, respiratory failure, seizure, profound anoxic/metabolic encephalopathy. Progress note dated 02/24/2018 This is a 67-year-old male with a history of renal failure respiratory failure seizure disorder and significant anoxic/metabolic encephalopathy. The patient was admitted on the and intubated on the . He has not been on any sedation for more than 2 days. Unfortunately, the patient's mental status is extremely poor. He does not respond well to deep pain or any other stimuli for that matter. He does not have a gag reflex. His pupillary reflexes are very sluggish. He has been seen by neurology. A CT of the brain has been done 2. Also, the patient will have 2 EEGs. Currently, the patient is a full code. CODE STATUS does need to be addressed. The patient is on the ventilator. He is on the volume assist control mode, rate of 14, tidal volume 500, FiO2 35% and PEEP of 5. Blood gases are reasonable with a PaO2 of 89 a PaCO2 of 40 and a pH of 7.48. For blood pressure control, the patient's on labetalol, Norvasc, hydralazine, and Catapres patch. The chest x-ray shows bilateral effusions. Microbiology is negative. I did ask the nurse to call the family to discuss CODE STATUS. If they want continued full care, the patient should have a early tracheostomy and PEG tube placement. If not, terminal weaning would be appropriate in my opinion given his poor mental status. Progress note dated 02/25/2018 This is a 67-year-old black male with history of renal failure, respiratory failure, seizure disorder, and significant anoxic/metabolic encephalopathy. He was admitted on the and intubated on the for respiratory failure. He has not been on any sedatives hypnotics narcotics and tranquilizers for more than 2 days. The patient's mental status is extremely poor. He has not responded to deep pain or verbal stimuli. Pupils were midpoint and sluggishly reactive. There is no gag reflex. No corneal reflex. He does occasionally trigger the ventilator. He's had a CAT scan of the brain 2 and 3 EEGs. I had a long discussion with the patient's sister yesterday. She is currently about making the patient a comfort measures and allowing him to be taken off life support. She apparently had to make a decision to amputate his leg and for that reason, the patient's sister the preferred to proceed with tracheostomy and PEG tube and a chronic ventilator facility as opposed to comfort measures. The patient is suffering from significant penile discharge. It's very green and yellow and purulent looking. I added Rocephin this morning. Cultures have been done and are pending. Prognosis is extremely poor. Currently, he is on the volume assist control mode, rate of 14, tidal volume 500, FiO2 35% and PEEP of 5. Arterial blood gases show a PaO2 of 92 a PaCO2 of 44 and a pH of 7.46. The patient's IV is saline at 20 mL an hour. He is getting tube feeds. Progress note dated 02/26/2018 67-year-old black male with a history of respiratory failure renal fire seizure disorder and profound anoxic/metabolic encephalopathy. He was admitted back on February 19 and intubated on the for acute respiratory failure. The patient has not had any sedatives hypnotics narcotics tranquilizers for the last 3 or 4 days. The patient's mental status is extremely poor. He does not respond to deep pain or verbal stimuli. The patient does have sluggishly reactive pupils. There is no corneal reflex. There is no gag reflex. He does trigger the ventilator occasionally. He's had CAT scans of the brain and EEGs multiple times. I've had a discussion with the patient's sister. She feels that she wants to give the patient every chance to improve neurologically and is willing to proceed with tracheostomy and PEG tube placement despite my urgings otherwise. I told her that after tracheostomy and PEG tube placement, the patient would likely go to a specialized nursing facility or chronic ventilator management facility. She is okay with this. Currently, the patient' s on the volume assist control mode with a rate of 14, tidal [place] 500, FiO2 35% and PEEP of 5. Arterial blood gases show a PaO2 of 87.3 PaCO2 43 and a pH of 7.45. The patient's IV is saline at 20 mL an hour. Tube feeds are on hold for an anticipated trach and PEG today although on learning that possibly will be done until tomorrow. Sputum was positive for gram-negative bacilli and possible staph aureus. The patient's on Rocephin and vancomycin. Trach and PEG will be done either today or tomorrow. Prognosis is very poor. Progress note dated 02/27/2018 67-year-old black male with a history of respiratory failure, renal fire, seizure disorder and profound anoxic/metabolic encephalopathy. The patient was admitted on February 19 and intubated on the for acute respiratory failure. The patient has not required any sedatives hypnotics narcotics or tranquilizers for the last 4 or 5 days. The patient's mental status continues to be very poor. The patient does not respond to deep pain or verbal stimuli and has pupils which are sluggishly reactive. The patient does not have a corneal reflex or gag reflex. He does trigger the ventilator occasionally. He' s had multiple CAT scans of the brain and EEGs. The patient is going for tracheostomy and PEG tube placement today. This is based on his sisters recommendations. The patient has a history of right below the knee amputation. Chest x-ray shows some mild fluid overload. A hemodialysis catheter was placed by the vascular surgeon. The patient is currently on the volume assist control mode rate of 14, tidal volume 500, PEEP of 5 and FiO2 35%. Most recent blood gases show a PaO2 of 107 a PaCO2 41 and a pH is 7.46. He is on a saline IV at KVO and tube feeds are on hold for the procedure today. His overall prognosis is very poor. Sputum sample from February 24 is positive for Serratia marcescens and staph aureus. The patient's staff is oxacillin sensitive. The patient will be placed on Levaquin. Progress note dated 02/28/2018 67-year-old black male with a history of respiratory failure. The patient was admitted on the intubated on the . Patient has not made any progress in yesterday on February 27, he underwent a tracheostomy and PEG tube placement. The patient remains on the volume assist control mode. Rate is 14, tidal volume 500, FiO2 40% to be dropped down to 30% and a PEEP of 5. Arterial blood gases show a PaO2 of 114 PaCO2 41 and a pH 7.43. The patient is receiving a saline IV at 20 mL an hour. Tube feeds are still on hold given the fresh PEG tube yesterday. Sputum shows evidence of both Serratia marcescens and oxacillin sensitive staph aureus. Chest x-rays consistent with mild fluid overload. The penile sampling shows gram-negative bacilli and gram-positive cocci although nothing has yet been identified. The patient remains on cefepime as an antibiotic. In addition, there were plans to transfer the patient to long-term acute care facility. Later today, we will resume tube feeds. I am happy to report that his mental status seemed to be a bit improved today. Nothing purposeful but his eyes are open and he seems to minimally respond to verbal stimuli. Overall prognosis though, remains very poor. A hemodialysis catheter was placed and he is undergoing intermittent hemodialysis as per nephrology. Progress note dated 03/01/2018 This is a 67-year-old white male with a history of respiratory failure. The patient was admitted back on February 19 and intubated on the . The patient's neurologic status is very poor and he suspected to have significant anoxic/metabolic encephalopathy based on his EEGs and input from neurology. The patient underwent a tracheostomy and PEG tube placement on February 27. The patient's overall neurologic status has improved only minimally in the last few days. Currently, he is on the assist control mode with a rate of 14, tidal volume of 500, FiO2 is 30% and a PEEP of 5. The patient's blood gases show a PaO2 of 93, a PaCO2 of 37 and a pH of 7.45. The patient's on saline at 20 mL an hour and tube feeds with Nepro at 40 with a goal of 42. Chest x-ray shows small effusions but overall, the chest x-ray has improved. The patient had hemodialysis on February 27 and 2 L was removed. The plan is to send the patient to a long-term ventilator facility early next week. Sputum shows evidence of both Serratia marcescens and oxacillin sensitive staph aureus. The patient remains on cefepime. Objective - Vital Signs Vital signs: Vital Signs Temp 98.6 F 03/01/18 08:00 Pulse 69 03/01/18 10:00 Resp 18 03/01/18 10:00 BP 164/72 02/28/18 18:13 Pulse Ox 97 03/01/18 10:00 Intake & Output 02/28/18 03/01/18 03/01/18 18:59 06:59 18:59 Intake Total 806 739 299 Output Total 187 210 35 Balance 619 529 264 Weight 75.8 kg 74.4 kg Intake: IV 376 299 109 NS 240 260 50 Pressure bag 36 39 9 Valproate Sodium 750 mg 100 50 In Sodium Chloride 0.9% 50 ml @ 50 mls/hr IVPB TID [facility] Rx#:[id number] Tube Feeding 90 350 160 Blood Product 310 Rc Pheresis As-3 Unit 310 [id number] Other 30 90 30 Output: Urine 187 210 35 Other: Voiding Method Indwelling Catheter Indwelling Catheter Indwelling Catheter ABP, PAP, CO, CI - Last Documented Arterial Blood Pressure 138/60 - Exam No acute distress, with an midline tracheostomy and PEG tube in place. Still no gag reflex. The patient appears to open his eyes on verbal stimuli. HEENT examination is grossly unremarkable. Mucous membranes are moist. Pupils midpoint and very sluggishly reactive. Neck supple. Full range of motion. No adenopathy thyromegaly or neck vein distention. Midline tracheostomy noted. Cardiovascular examination reveals regular rhythm rate. S1-S2 normal. No S3 or S4. No discernible murmur noted. Heart sounds are distant. Heart rate is 73 bpm. Lungs reveal improved with the breath sounds. Breath sounds are equal bilaterally. A few scattered crackles are appreciated. No wheezes or rhonchi. Breath sounds equal bilaterally. Abdomen soft bowel sounds are heard. No masses or tenderness. A PEG tube is noted. Extremities are intact. No cyanosis clubbing or edema. Skin is without rash or lesion. Neurologic examination is difficult to assess. The patient does not have a gag. Doll's eyes are difficult to determine. The patient does have an occasional triggering of the ventilator. Pupillary reflexes are sluggish. The patient does appear to be a bit more awake today. He has open eyes and is demonstrating roaming eyes. Barely responsive verbal stimuli. It may or may not be purposeful. - Labs CBC & Chem 7: 03/01/18 04:49 03/01/18 04:49 Labs: Abnormal Lab Results - Last 24 Hours (Table) 02/28/18 02/28/18 02/28/18 Range/Units 12:32 12:55 16:55 RBC (4.30-5.90) m/uL Hgb (13.0-17.5) gm/dL Hct (39.0-53.0) % MCHC (31.0-37.0) g/dL Lymphocytes # (1.0-4.8) k/uL ABG HCO3 (21-25) mmol/L ABG Total CO2 (19-24) mmol/L ABG O2 Saturation (94-97) % BUN (9-20) mg/dL Creatinine (0.66-1.25) mg/dL Glucose (74-99) mg/dL POC Glucose (mg/dL) 173 H 164 H (75-99) mg/dL Phosphorus (2.5-4.5) mg/dL Crossmatch See Detail 02/28/18 03/01/18 03/01/18 Range/Units 20:07 00:02 00:50 RBC 2.80 L (4.30-5.90) m/uL Hgb 7.9 L (13.0-17.5) gm/dL Hct 25.7 L (39.0-53.0) % MCHC 30.8 L (31.0-37.0) g/dL Lymphocytes # (1.0-4.8) k/uL ABG HCO3 (21-25) mmol/L ABG Total CO2 (19-24) mmol/L ABG O2 Saturation (94-97) % BUN (9-20) mg/dL Creatinine (0.66-1.25) mg/dL Glucose (74-99) mg/dL POC Glucose (mg/dL) 159 H 154 H (75-99) mg/dL Phosphorus (2.5-4.5) mg/dL Crossmatch 03/01/18 03/01/18 03/01/18 Range/Units 03:59 04:49 04:49 RBC 2.83 L (4.30-5.90) m/uL Hgb 8.4 L (13.0-17.5) gm/dL Hct 26.4 L (39.0-53.0) % MCHC (31.0-37.0) g/dL Lymphocytes # 0.7 L (1.0-4.8) k/uL ABG HCO3 (21-25) mmol/L ABG Total CO2 (19-24) mmol/L ABG O2 Saturation (94-97) % BUN 77 H (9-20) mg/dL Creatinine 5.20 H (0.66-1.25) mg/dL Glucose 208 H (74-99) mg/dL POC Glucose (mg/dL) 204 H (75-99) mg/dL Phosphorus 6.0 H (2.5-4.5) mg/dL Crossmatch 03/01/18 03/01/18 Range/Units 04:58 08:09 RBC (4.30-5.90) m/uL Hgb (13.0-17.5) gm/dL Hct (39.0-53.0) % MCHC (31.0-37.0) g/dL Lymphocytes # (1.0-4.8) k/uL ABG HCO3 26 H (21-25) mmol/L ABG Total CO2 27 H (19-24) mmol/L ABG O2 Saturation 98.6 H (94-97) % BUN (9-20) mg/dL Creatinine (0.66-1.25) mg/dL Glucose (74-99) mg/dL POC Glucose (mg/dL) 221 H (75-99) mg/dL Phosphorus (2.5-4.5) mg/dL Crossmatch Microbiology - Last 24 Hours (Table) 02/24/18 05:25 Blood Culture - Preliminary Blood No Growth after 120 hours 02/24/18 05:07 Blood Culture - Preliminary Blood No Growth after 120 hours Assessment and Plan Assessment: Assessment Acute pulmonary edema with hypoxemic respiratory failure secondary to diastolic dysfunction Intubation with mechanical ventilation on February 20 for respiratory failure Postop day #2, status post tracheostomy and PEG tube placement on February 27 Profound hypoglycemia on presentation Serratia marcescens and oxacillin sensitive staph aureus tracheobronchitis/ bronchopneumonia Significant anoxic/metabolic encephalopathy. 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 History of hepatitis C infection History of chronic liver disease History of gout History of deep venous thrombosis History of chronic back pain Remote history of IV drug abuse History of hypertensive urgency Stage V chronic kidney disease Penile discharge, rule out bacterial urethritis Plan: Plan dated 02/24/2018 CODE STATUS will have to be addressed in this individual. The patient's mental status is very poor as mentioned above. If the family wants to continue with life support, the patient will need an early tracheostomy and PEG tube placement. The patient could then be sent to select specialty or some sort of chronic ventilator facility. In addition, if the patient does not want this, we might consider terminal weaning. CODE STATUS needs to be addressed so. Microbiology is negative. White count 11.2, hemoglobin 7.8, hematocrit 24.5, and platelet count is normal. In addition, sodium potassium chloride CO2 normal. Anion gap a bit high at 14. BUN and creatinine were 106 and 5.91. Closed his baseline and he has not required hemodialysis. Medications are reviewed. Chest x-ray shows bilateral small effusions. Again overall prognosis remains extremely poor. Medications are reviewed. Critical care time 33 minutes Plan dated 02/25/2018 I spent a long time talking to the sister yesterday. Unfortunately, she would like the patient to have a tracheostomy and PEG tube placement hoping they on hold but the patient will recover neurologic function. We'll consult one of the surgeons for that. In addition, the patient was started on Rocephin for a purulent penile discharge. The patient remains on my support. Neurologic examination is poor. EEG is consistent with profound anoxic/metabolic encephalopathy. White count 15, hemoglobin 7.8, hematocrit 24.8 and platelet count 341,000. Sodium potassium chloride CO2 all normal. Anion gap normal. BUN 116 with creatinine 6.30. Thus far, all microbiologic studies are negative. Again, the patient was started on Rocephin for a purulent penile discharge. Repeat cultures have been done. Medications labs and x-rays are all reviewed. Critical care time 33 minutes Plan dated 02/26/2018 The patient is apparently scheduled to have a hemodialysis catheter placed today and have hemodialysis today. He does need that. Obviously, the PEG and trach cannot be done until tomorrow. We'll resume his tube feeds. Currently remains on the ventilator. Neurologic examination is unchanged. Sputum showing gram-negative bacilli and presumptive staph. Chest x-ray shows diffuse bilateral infiltrates. White count 11.1 hemoglobin 7.4 hematocrit 23.6 and platelet count 308,000. Sodium potassium chloride CO2 all normal. Anion gap is 11. BUN was 131 with a creatinine of 6.60. Yesterday, BUN was 116 with a creatinine of 6.30. Medications, labs, and x-rays all reviewed. Diagnosis is very poor. We will continue to follow. His sister is okay with tracheostomy and PEG tube placement and long-term placement in a ventilator facility. Critical care time 34 minutes Plan dated 02/27/2018 The patient's antibiotics will be changed to Levaquin, which should cover both the Serratia and oxacillin sensitive staph aureus. White count is 8.1 hemoglobin 7.1 hematocrit 22.9 and platelet count is normal. Sodium potassium chloride CO2 all normal. Anion gap is 11. BUN is 110 and creatinine 5.81 chest x-ray is consistent with mild fluid overload. Hemodialysis catheter was placed. X-rays labs and medications are all reviewed. Additional recommendations and suggestions are forthcoming. Prognosis is poor. We've had the chronic ventilator facility evaluate the patient. Critical care time 33 minutes Plan dated 02/28/2018 The patient had his tracheostomy and PEG tube placed yesterday on February 27. The patient appears to be a bit more awake today. We will find out from the environmental restoration planner or case resolution specialist about transfer to a long-term acute care facility. The patient remains on Maxipime as his antibiotic. White count 4.6, hemoglobin 7, hematocrit 23.1 and platelet count is normal. Sodium potassium chloride CO2 all normal. Anion gap is 11. BUN and creatinine were 94 and 5.64 respectively. Prognosis is still poor. Possible discharge in the next day or so to a chronic ventilator facility. We'll continue with antibiotic. Mental status is slightly improved but still very poor. Tube feeds will be resumed later today. Critical care time 34 minutes Plan dated 03/01/2018 The patient is doing reasonably well. The patient is being evaluated by a long- term acute care facility for placement early next week. Tracheostomy and PEG tube was done on February 27. The patient remains on cefepime for his Serratia marcescens and oxacillin sensitive staph aureus tracheobronchitis. Prognosis is still poor. Blood gases have been noted. White count is 6.9, hemoglobin 8.4, hematocrit 26.4, and platelet count is normal. Sodium potassium chloride and CO2 are all normal. BUN and creatinine were 77 and 5.0 respectively. Thus far, sampling of the penis has not identified any particular bacteria. The patient's overall prognosis remains poor. We will continue to follow. His neurologic status is only minimally improved. Critical care time 35 minutes Time with Patient: Greater than 30
[2018-03-01 12:02] LABS: Glucose,Whole Blood 211 mg/dL (75-99)
[2018-03-01 15:48] LABS: Glucose,Whole Blood 227 mg/dL (75-99)
[2018-03-01] MEDS: CEFEPIME 1 GM in SODIUM CHLORIDE 0.9% 50 ML IVPB SCH (17:15)
--- NOTE | 2018-03-01 18:32 | P.PN ---
Subjective Progress Note Date: 03/01/18 Principal diagnosis: Anoxic encephalopathy Mr. Mireles is a 67-year-old male with a past medical history of cocaine abuse, congestive heart failure, seizure disorder admitted to the hospital with shortness of breath was found to have pulmonary edema. In the emergency room patient was unresponsive with questionable jerking-like activity. Eventually the patient was intubated and has been in the ICU since admission. Patient has history of stage IV chronic kidney disease, history of cocaine abuse, poorly controlled type 2 diabetes mellitus and peripheral vascular disease. Today on 03/01/2018 - evaluating the patient for the first time. As per the previous notes patient remained unresponsive during the entire hospital stay. He is undergoing hemodialysis and is on antibiotics. No active overnight issues reported per the nursing staff. Patient still remains intubated and unresponsive. As per the nursing staff report he has only slight jerking movements of his right amputated like. Review of systems could not be done as the patient is intubated. Patient's medications have been reviewed: Tylenol 325 mg, Monica up 0.5-3 mg. Norvasc 10 mg. Lipitor 10 mg. Calcium acetate 667 mg. Ceftriaxone 1000 mg. Chlorhexidine. Clonidine 0.3 mg patch. Lasix 8 mg. Neurontin 100 mg. Heparin 5000 unit. Hydralazine 40 mg. NovoLog sliding scale. Labetalol 400 mg. Narcan 0.2 mg. protonix 40 mg. propofol on hold. sodium bicarb 650 mg. flomax 0.4 mg. thiamine 100 mg. valproic acid 750 mg. Objective - Vital Signs Vital signs: Vital Signs Temp 98.5 F 03/01/18 12:00 Pulse 72 03/01/18 15:14 Resp 14 03/01/18 15:00 BP 164/72 02/28/18 18:13 Pulse Ox 98 03/01/18 15:00 Intake & Output 02/28/18 03/01/18 03/01/18 18:59 06:59 18:59 Intake Total 806 739 850 Output Total 187 210 110 Balance 619 529 740 Weight 75.8 kg 74.4 kg Intake: IV 376 299 224 NS 240 260 150 Pressure bag 36 39 24 Valproate Sodium 750 mg 100 50 In Sodium Chloride 0.9% 50 ml @ 50 mls/hr IVPB TID [facility] Rx#:[id number] Tube Feeding 90 350 406 Blood Product 310 Rc Pheresis As-3 Unit 310 [id number] Other 30 90 220 Output: Urine 187 210 110 Other: Voiding Method Indwelling Catheter Indwelling Catheter Indwelling Catheter ABP, PAP, CO, CI - Last Documented Arterial Blood Pressure 148/59 - Exam -GENERAL: The patient is unresponsive , does not open eyes,intubated. HEENT: No scleral icterus. No conjunctival pallor. Normocephalic, atraumatic. CARDIOVASCULAR: S1 and S2 present. No murmurs, rubs, or gallops. -PULMONARY: Chest is clear to auscultation, no wheezing. Bilateral scattered crackles. ABDOMEN: Soft, nontender, nondistended, normoactive bowel sounds. No palpable organomegaly. MUSCULOSKELETAL: No joint swelling or deformity. EXTREMITIES: No cyanosis, clubbing, or pedal edema. -s/p right BKA -NEUROLOGICAL: unresponsive to verbal or painful stinuli, does not open eyes. SKIN: No rashes. - Labs CBC & Chem 7: 03/01/18 04:49 03/01/18 04:49 Labs: Abnormal Lab Results - Last 24 Hours (Table) 02/28/18 02/28/18 02/28/18 Range/Units 12:55 16:55 20:07 RBC (4.30-5.90) m/uL Hgb (13.0-17.5) gm/dL Hct (39.0-53.0) % MCHC (31.0-37.0) g/dL Lymphocytes # (1.0-4.8) k/uL ABG HCO3 (21-25) mmol/L ABG Total CO2 (19-24) mmol/L ABG O2 Saturation (94-97) % BUN (9-20) mg/dL Creatinine (0.66-1.25) mg/dL Glucose (74-99) mg/dL POC Glucose (mg/dL) 164 H 159 H (75-99) mg/dL Phosphorus (2.5-4.5) mg/dL Crossmatch See Detail 03/01/18 03/01/18 03/01/18 Range/Units 00:02 00:50 03:59 RBC 2.80 L (4.30-5.90) m/uL Hgb 7.9 L (13.0-17.5) gm/dL Hct 25.7 L (39.0-53.0) % MCHC 30.8 L (31.0-37.0) g/dL Lymphocytes # (1.0-4.8) k/uL ABG HCO3 (21-25) mmol/L ABG Total CO2 (19-24) mmol/L ABG O2 Saturation (94-97) % BUN (9-20) mg/dL Creatinine (0.66-1.25) mg/dL Glucose (74-99) mg/dL POC Glucose (mg/dL) 154 H 204 H (75-99) mg/dL Phosphorus (2.5-4.5) mg/dL Crossmatch 03/01/18 03/01/18 03/01/18 Range/Units 04:49 04:49 04:58 RBC 2.83 L (4.30-5.90) m/uL Hgb 8.4 L (13.0-17.5) gm/dL Hct 26.4 L (39.0-53.0) % MCHC (31.0-37.0) g/dL Lymphocytes # 0.7 L (1.0-4.8) k/uL ABG HCO3 26 H (21-25) mmol/L ABG Total CO2 27 H (19-24) mmol/L ABG O2 Saturation 98.6 H (94-97) % BUN 77 H (9-20) mg/dL Creatinine 5.20 H (0.66-1.25) mg/dL Glucose 208 H (74-99) mg/dL POC Glucose (mg/dL) (75-99) mg/dL Phosphorus 6.0 H (2.5-4.5) mg/dL Crossmatch 03/01/18 03/01/18 Range/Units 08:09 12:00 RBC (4.30-5.90) m/uL Hgb (13.0-17.5) gm/dL Hct (39.0-53.0) % MCHC (31.0-37.0) g/dL Lymphocytes # (1.0-4.8) k/uL ABG HCO3 (21-25) mmol/L ABG Total CO2 (19-24) mmol/L ABG O2 Saturation (94-97) % BUN (9-20) mg/dL Creatinine (0.66-1.25) mg/dL Glucose (74-99) mg/dL POC Glucose (mg/dL) 221 H 211 H (75-99) mg/dL Phosphorus (2.5-4.5) mg/dL Crossmatch Microbiology - Last 24 Hours (Table) 02/24/18 05:25 Blood Culture - Preliminary Blood No Growth after 120 hours 02/24/18 05:07 Blood Culture - Preliminary Blood No Growth after 120 hours Assessment and Plan Assessment: ASSESSMENT Acute and anoxic/metabolic encephalopathy Acute hypoxemic respiratory failure secondary to pulmonary edema due to diastolic dysfunction Mechanical ventilation Hypoglycemia at the time of presentation Chronic kidney disease requiring hemodialysis currently Anemia of chronic disease Type 2 diabetes mellitus poorly controlled Chronic liver disease with hepatitis C infection History of DVT Remote history of drug abuse Status post trach and PEG on February 27 Plan: Overall prognosis is very poor due to anoxic encephalopathy. As of now the patient remains a full code but this needs to be addressed. Vision will be continued on antibiotics in the form of cefepime as the sputum cultures are positive for Serratia and Staphylococcus. To be continued on hemodialysis as per nephrology recommendations. He is being evaluated for long-term acute care facility placement. Further recommendations depending on the progress of the patient.
[2018-03-01 19:58] LABS: Glucose,Whole Blood 224 mg/dL (75-99)
--- NOTE | 2018-03-01 20:46 | PN ---
PROGRESS NOTE DATE OF SERVICE: 03/01/2018 REASON FOR FOLLOW UP: Serratia marcescens and MSSA pneumonia. INTERVAL HISTORY: The patient is currently afebrile. He is hemodynamically stable. Not on any pressor support. The patient remains to be intubated with a trach. Has been tolerating his tube feeds. No significant diarrhea reported by the nursing staff. PHYSICAL EXAMINATION: Blood pressure 140/54 with a pulse of 69, temperature 98. He is 98% on 30% FiO2. General description is an elderly male lying in bed in no distress. RESPIRATORY SYSTEM: Unlabored breathing. Clear to auscultation anteriorly. HEART: S1, S2. Regular rate and rhythm. ABDOMEN: Soft, no tenderness. LABS: Hemoglobin 8.4, white count 6.8 with a BUN of 77, creatinine 5.0. DIAGNOSTIC IMPRESSION AND PLAN: Patient with MSSA and Serratia marcescens pneumonia currently covered with cefepime, to continue for now while watching his clinical course closely. Continue supportive care. MMODL / IJN: [id number] /
[2018-03-01] MEDS: ATORVASTATIN 10 MG TAB PO SCH (21:11)
[2018-03-02] MEDS: IPRATROPIUM-ALBUTEROL 3 ML NEB INHALATION SCH ×6 (00:12→19:26)
[2018-03-02 00:20] LABS: Glucose,Whole Blood 183 mg/dL (75-99)
[2018-03-02] MEDS: INSULIN ASPART 100 UNIT/ML 1 ML 10 ML VIAL SQ SCH ×6 (00:56→21:00)
[2018-03-02] MEDS: HEPARIN SODIUM,PORCINE 5,000 UNIT/ML 1 ML VIAL SQ SCH ×3 (00:57→15:34)
[2018-03-02 03:50] LABS: Glucose,Whole Blood 240 mg/dL (75-99)
[2018-03-02] MEDS: hydrALAZINE HCL 20 MG/ML 1 ML VIAL IVP PRN ×2 (04:11→23:38)
[2018-03-02 05:09] LABS: Basophils % (A) 0 %; Eosinophils # (A) 0.1 k/uL (0-0.7); Eosinophils % (A) 2 %; HCT 24.7 % (39.0-53.0); HGB 7.7 gm/dL (13.0-17.5); Hypochromasia Moderate; Lymphocytes # (A) 0.9 k/uL (1.0-4.8); Lymphocytes % (A) 14 %; MCH 29.1 pg (25.0-35.0); MCHC 31.3 g/dL (31.0-37.0); MCV 93.1 fL (80.0-100.0); Mean Platelet Volume 7.6; Monocytes # (A) 0.6 k/uL (0-1.0); Monocytes % (A) 9 %; Neutrophils # (A) 4.4 k/uL (1.3-7.7); Neutrophils % (A) 73 %; Platelet Count 229 k/uL (150-450); RBC 2.65 m/uL (4.30-5.90); RDW 14.5 % (11.5-15.5)
[2018-03-02 05:18] LABS: Calcium 8.4 mg/dL (8.4-10.2); Magnesium 2.4 mg/dL (1.6-2.3); Phosphorus 5.9 mg/dL (2.5-4.5); Potassium 3.8 mmol/L (3.5-5.1)
[2018-03-02 05:23] LABS: Valproic Acid (Depakene) 48.5 ug/mL
[2018-03-02 05:25] LABS: ABG Base Excess 1.3 mmol/L; ABG HCO3 26 mmol/L (21-25); ABG Oxygen Saturation 98.6 % (94-97); ABG PCO2 40 mmHg (35-45); ABG PH 7.42 (7.35-7.45); ABG PO2 97 mmHg (83-108); ABG TCO2 27 mmol/L (19-24)
--- NOTE | 2018-03-02 07:00 | XR ---
EXAMINATION TYPE: XR chest 1V portable DATE OF EXAM: 03/02/2018 HISTORY: intubated and OG in place. REFERENCE: Previous study dated 03/01/2018. FINDINGS: A tracheostomy tube is in place. Its tip overlies the tracheal air column in this single fr ontal projection. The patient's right subclavian catheter is been removed. There is left basilar airspace disease. There is a small left effusion. The heart is mildly enlarged. IMPRESSION: NO SIGNIFICANT INTERVAL CHANGE IN THE APPEARANCE OF THE CHEST.
[2018-03-02 07:40] LABS: Glucose,Whole Blood 193 mg/dL (75-99)
[2018-03-02] MEDS: amLODIPine 10 MG TAB PO SCH (08:11)
[2018-03-02] MEDS: CALCIUM ACETATE 667 MG CAP PO SCH ×3 (08:11→17:34)
[2018-03-02] MEDS: CHLORHEXIDINE GLUCONATE 15 ML CUP MUCOUS MEM SCH ×2 (08:11→21:36)
[2018-03-02] MEDS: LABETALOL 200 MG TAB PO SCH ×3 (08:12→21:36)
[2018-03-02] MEDS: THIAMINE 100 MG/ML 2 ML VIAL IVP SCH (08:12)
[2018-03-02] MEDS: PANTOPRAZOLE 40 MG/10 ML VIAL IVP SCH (08:12)
[2018-03-02] MEDS: FUROSEMIDE 10 MG/ML 10 ML VIAL IV SCH ×2 (08:12→21:36)
[2018-03-02] MEDS: GABAPENTIN 100 MG CAP PO SCH ×3 (08:12→21:36)
[2018-03-02] MEDS: VALPROATE SODIUM 750 MG in SODIUM CHLORIDE 0.9% 50 ML IVPB SCH ×3 (08:13→21:52)
[2018-03-02] MEDS ORDERED: LIDOCAINE 1% INJ 10MG/ML (20 ML MDV) SQ ONE (09:36)
[2018-03-02] MEDS ORDERED: IV FLUID CONTINUATION 1,000 ML IV ONE (09:38)
--- NOTE | 2018-03-02 09:41 | P.PN ---
Subjective Progress Note Date: 03/02/18 Principal diagnosis: Renal failure, respiratory failure, seizure, profound anoxic/metabolic encephalopathy. Progress note dated 02/24/2018 This is a 67-year-old male with a history of renal failure respiratory failure seizure disorder and significant anoxic/metabolic encephalopathy. The patient was admitted on the and intubated on the . He has not been on any sedation for more than 2 days. Unfortunately, the patient's mental status is extremely poor. He does not respond well to deep pain or any other stimuli for that matter. He does not have a gag reflex. His pupillary reflexes are very sluggish. He has been seen by neurology. A CT of the brain has been done 2. Also, the patient will have 2 EEGs. Currently, the patient is a full code. CODE STATUS does need to be addressed. The patient is on the ventilator. He is on the volume assist control mode, rate of 14, tidal volume 500, FiO2 35% and PEEP of 5. Blood gases are reasonable with a PaO2 of 89 a PaCO2 of 40 and a pH of 7.48. For blood pressure control, the patient's on labetalol, Norvasc, hydralazine, and Catapres patch. The chest x-ray shows bilateral effusions. Microbiology is negative. I did ask the nurse to call the family to discuss CODE STATUS. If they want continued full care, the patient should have a early tracheostomy and PEG tube placement. If not, terminal weaning would be appropriate in my opinion given his poor mental status. Progress note dated 02/25/2018 This is a 67-year-old black male with history of renal failure, respiratory failure, seizure disorder, and significant anoxic/metabolic encephalopathy. He was admitted on the and intubated on the for respiratory failure. He has not been on any sedatives hypnotics narcotics and tranquilizers for more than 2 days. The patient's mental status is extremely poor. He has not responded to deep pain or verbal stimuli. Pupils were midpoint and sluggishly reactive. There is no gag reflex. No corneal reflex. He does occasionally trigger the ventilator. He's had a CAT scan of the brain 2 and 3 EEGs. I had a long discussion with the patient's sister yesterday. She is currently about making the patient a comfort measures and allowing him to be taken off life support. She apparently had to make a decision to amputate his leg and for that reason, the patient's sister the preferred to proceed with tracheostomy and PEG tube and a chronic ventilator facility as opposed to comfort measures. The patient is suffering from significant penile discharge. It's very green and yellow and purulent looking. I added Rocephin this morning. Cultures have been done and are pending. Prognosis is extremely poor. Currently, he is on the volume assist control mode, rate of 14, tidal volume 500, FiO2 35% and PEEP of 5. Arterial blood gases show a PaO2 of 92 a PaCO2 of 44 and a pH of 7.46. The patient's IV is saline at 20 mL an hour. He is getting tube feeds. Progress note dated 02/26/2018 67-year-old black male with a history of respiratory failure renal fire seizure disorder and profound anoxic/metabolic encephalopathy. He was admitted back on February 19 and intubated on the for acute respiratory failure. The patient has not had any sedatives hypnotics narcotics tranquilizers for the last 3 or 4 days. The patient's mental status is extremely poor. He does not respond to deep pain or verbal stimuli. The patient does have sluggishly reactive pupils. There is no corneal reflex. There is no gag reflex. He does trigger the ventilator occasionally. He's had CAT scans of the brain and EEGs multiple times. I've had a discussion with the patient's sister. She feels that she wants to give the patient every chance to improve neurologically and is willing to proceed with tracheostomy and PEG tube placement despite my urgings otherwise. I told her that after tracheostomy and PEG tube placement, the patient would likely go to a specialized nursing facility or chronic ventilator management facility. She is okay with this. Currently, the patient' s on the volume assist control mode with a rate of 14, tidal [place] 500, FiO2 35% and PEEP of 5. Arterial blood gases show a PaO2 of 87.3 PaCO2 43 and a pH of 7.45. The patient's IV is saline at 20 mL an hour. Tube feeds are on hold for an anticipated trach and PEG today although on learning that possibly will be done until tomorrow. Sputum was positive for gram-negative bacilli and possible staph aureus. The patient's on Rocephin and vancomycin. Trach and PEG will be done either today or tomorrow. Prognosis is very poor. Progress note dated 02/27/2018 67-year-old black male with a history of respiratory failure, renal fire, seizure disorder and profound anoxic/metabolic encephalopathy. The patient was admitted on February 19 and intubated on the for acute respiratory failure. The patient has not required any sedatives hypnotics narcotics or tranquilizers for the last 4 or 5 days. The patient's mental status continues to be very poor. The patient does not respond to deep pain or verbal stimuli and has pupils which are sluggishly reactive. The patient does not have a corneal reflex or gag reflex. He does trigger the ventilator occasionally. He' s had multiple CAT scans of the brain and EEGs. The patient is going for tracheostomy and PEG tube placement today. This is based on his sisters recommendations. The patient has a history of right below the knee amputation. Chest x-ray shows some mild fluid overload. A hemodialysis catheter was placed by the vascular surgeon. The patient is currently on the volume assist control mode rate of 14, tidal volume 500, PEEP of 5 and FiO2 35%. Most recent blood gases show a PaO2 of 107 a PaCO2 41 and a pH is 7.46. He is on a saline IV at KVO and tube feeds are on hold for the procedure today. His overall prognosis is very poor. Sputum sample from February 24 is positive for Serratia marcescens and staph aureus. The patient's staff is oxacillin sensitive. The patient will be placed on Levaquin. Progress note dated 02/28/2018 67-year-old black male with a history of respiratory failure. The patient was admitted on the intubated on the . Patient has not made any progress in yesterday on February 27, he underwent a tracheostomy and PEG tube placement. The patient remains on the volume assist control mode. Rate is 14, tidal volume 500, FiO2 40% to be dropped down to 30% and a PEEP of 5. Arterial blood gases show a PaO2 of 114 PaCO2 41 and a pH 7.43. The patient is receiving a saline IV at 20 mL an hour. Tube feeds are still on hold given the fresh PEG tube yesterday. Sputum shows evidence of both Serratia marcescens and oxacillin sensitive staph aureus. Chest x-rays consistent with mild fluid overload. The penile sampling shows gram-negative bacilli and gram-positive cocci although nothing has yet been identified. The patient remains on cefepime as an antibiotic. In addition, there were plans to transfer the patient to long-term acute care facility. Later today, we will resume tube feeds. I am happy to report that his mental status seemed to be a bit improved today. Nothing purposeful but his eyes are open and he seems to minimally respond to verbal stimuli. Overall prognosis though, remains very poor. A hemodialysis catheter was placed and he is undergoing intermittent hemodialysis as per nephrology. Progress note dated 03/01/2018 This is a 67-year-old black male with a history of respiratory failure. The patient was admitted back on February 19 and intubated on the . The patient's neurologic status is very poor and he suspected to have significant anoxic/metabolic encephalopathy based on his EEGs and input from neurology. The patient underwent a tracheostomy and PEG tube placement on February 27. The patient's overall neurologic status has improved only minimally in the last few days. Currently, he is on the assist control mode with a rate of 14, tidal volume of 500, FiO2 is 30% and a PEEP of 5. The patient's blood gases show a PaO2 of 93, a PaCO2 of 37 and a pH of 7.45. The patient's on saline at 20 mL an hour and tube feeds with Nepro at 40 with a goal of 42. Chest x-ray shows small effusions but overall, the chest x-ray has improved. The patient had hemodialysis on February 27 and 2 L was removed. The plan is to send the patient to a long-term ventilator facility early next week. Sputum shows evidence of both Serratia marcescens and oxacillin sensitive staph aureus. The patient remains on cefepime. Progress note dated 03/02/2018 67-year-old black male with a history of respiratory failure. The patient was admitted on February 19 intubated next day on February 20. The patient's neurologic status is very poor thought to be related to anoxic/metabolic encephalopathy. The patient has been seen by neurology and has had multiple EEGs and CT scans. The patient underwent a tracheostomy and PEG tube placement on February 27. The plan is to get the patient off to select specialty. We' ll waiting for a permanent hemodialysis catheter to be placed by vascular surgery. Currently, the patient's on the volume assist control mode with a rate of 14, tidal volume 500, PEEP of 5 and FiO2 of 30%. The patient's blood gases show a PaO2 of 97 a PaCO2 of 40 and a pH is 7.42. The patient's getting saline IV at 20 mL an hour. Tube feeds are on hold because of the possibility of a permanent hemodialysis catheter today. The patient's neurologic status truly hasn't changed over the last 2 or 3 days. The patient remains very poorly responsive. He does have some basic brainstem reflexes. Sputum was positive for Serratia marcescens and oxacillin sensitive staph aureus. Objective - Vital Signs Vital signs: Vital Signs Temp 98.8 F 03/02/18 08:00 Pulse 70 03/02/18 09:00 Resp 14 03/02/18 09:00 BP 164/72 02/28/18 18:13 Pulse Ox 99 03/02/18 09:00 Intake & Output 03/01/18 03/02/18 03/02/18 18:59 06:59 18:59 Intake Total 1282 870 231 Output Total 155 206 60 Balance 1127 664 171 Weight 75 kg Intake: IV 378 276 109 Cefepime 1 gm In Sodium 50 Chloride 0.9% 50 ml @ 100 mls/hr IVPB DAILY@1700 RAINE Rx#:[id number] NS 195 240 50 Pressure bag 33 36 9 Valproate Sodium 750 mg 100 50 In Sodium Chloride 0.9% 50 ml @ 50 mls/hr IVPB TID RAINE Rx#:[id number] Tube Feeding 574 504 42 Other 330 90 80 Output: Urine 155 206 60 Other: Voiding Method Indwelling Catheter Indwelling Catheter Indwelling Catheter # Bowel Movements 1 ABP, PAP, CO, CI - Last Documented Arterial Blood Pressure 157/57 - Exam No acute distress, with an midline tracheostomy and PEG tube in place. Still no gag reflex. The patient appears to open his eyes on verbal stimuli. HEENT examination is grossly unremarkable. Mucous membranes are moist. Pupils midpoint and very sluggishly reactive. Neck supple. Full range of motion. No adenopathy thyromegaly or neck vein distention. Midline tracheostomy noted. Cardiovascular examination reveals regular rhythm rate. S1-S2 normal. No S3 or S4. No discernible murmur noted. Heart sounds are distant. Heart rate is 73 bpm. Lungs reveal diffuse bilateral rhonchorous breath sounds. Breath sounds equal bilaterally. No wheezes. A few scattered crackles are appreciated. Breath sounds are marginally improved over the last couple of days. Abdomen soft bowel sounds are heard. No masses or tenderness. A PEG tube is noted. Extremities are intact. No cyanosis clubbing or edema. The patient is a right BKA. Skin is without rash or lesion. Neurologic examination is difficult to assess. The patient does not have a gag. Doll's eyes are difficult to determine. The patient does have an occasional triggering of the ventilator. Pupillary reflexes are sluggish. The patient does appear to be a bit more awake today. He has open eyes and is demonstrating roaming eyes. Barely responsive verbal stimuli. It may or may not be purposeful. - Labs CBC & Chem 7: 03/02/18 04:30 03/02/18 04:30 Labs: Abnormal Lab Results - Last 24 Hours (Table) 03/01/18 03/01/18 03/01/18 Range/Units 12:00 15:45 19:56 RBC (4.30-5.90) m/uL Hgb (13.0-17.5) gm/dL Hct (39.0-53.0) % Lymphocytes # (1.0-4.8) k/uL ABG HCO3 (21-25) mmol/L ABG Total CO2 (19-24) mmol/L ABG O2 Saturation (94-97) % BUN (9-20) mg/dL Creatinine (0.66-1.25) mg/dL Glucose (74-99) mg/dL POC Glucose (mg/dL) 211 H 227 H 224 H (75-99) mg/dL Phosphorus (2.5-4.5) mg/dL Magnesium (1.6-2.3) mg/dL 03/02/18 03/02/18 03/02/18 Range/Units 00:17 03:48 04:30 RBC (4.30-5.90) m/uL Hgb (13.0-17.5) gm/dL Hct (39.0-53.0) % Lymphocytes # (1.0-4.8) k/uL ABG HCO3 (21-25) mmol/L ABG Total CO2 (19-24) mmol/L ABG O2 Saturation (94-97) % BUN 90 H (9-20) mg/dL Creatinine 5.87 H (0.66-1.25) mg/dL Glucose 217 H (74-99) mg/dL POC Glucose (mg/dL) 183 H 240 H (75-99) mg/dL Phosphorus 5.9 H (2.5-4.5) mg/dL Magnesium 2.4 H (1.6-2.3) mg/dL 03/02/18 03/02/18 03/02/18 Range/Units 04:30 05:20 07:39 RBC 2.65 L (4.30-5.90) m/uL Hgb 7.7 L (13.0-17.5) gm/dL Hct 24.7 L (39.0-53.0) % Lymphocytes # 0.9 L (1.0-4.8) k/uL ABG HCO3 26 H (21-25) mmol/L ABG Total CO2 27 H (19-24) mmol/L ABG O2 Saturation 98.6 H (94-97) % BUN (9-20) mg/dL Creatinine (0.66-1.25) mg/dL Glucose (74-99) mg/dL POC Glucose (mg/dL) 193 H (75-99) mg/dL Phosphorus (2.5-4.5) mg/dL Magnesium (1.6-2.3) mg/dL Microbiology - Last 24 Hours (Table) 02/24/18 05:25 Blood Culture - Final Blood No Growth after 144 hours 02/24/18 05:07 Blood Culture - Final Blood No Growth after 144 hours 03/01/18 15:15 Catheter Tip Culture - Preliminary Catheter Tip Assessment and Plan Assessment: Assessment Acute pulmonary edema with hypoxemic respiratory failure secondary to diastolic dysfunction Intubation with mechanical ventilation on February 20 for respiratory failure Postop day #3, status post tracheostomy and PEG tube placement on February 27 Profound hypoglycemia on presentation Serratia marcescens and oxacillin sensitive staph aureus tracheobronchitis/ bronchopneumonia Significant anoxic/metabolic encephalopathy. 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 History of hepatitis C infection History of chronic liver disease History of gout History of deep venous thrombosis History of chronic back pain Remote history of IV drug abuse History of hypertensive urgency Stage V chronic kidney disease Penile discharge, rule out bacterial urethritis Plan: Plan dated 02/24/2018 CODE STATUS will have to be addressed in this individual. The patient's mental status is very poor as mentioned above. If the family wants to continue with life support, the patient will need an early tracheostomy and PEG tube placement. The patient could then be sent to select specialty or some sort of chronic ventilator facility. In addition, if the patient does not want this, we might consider terminal weaning. CODE STATUS needs to be addressed so. Microbiology is negative. White count 11.2, hemoglobin 7.8, hematocrit 24.5, and platelet count is normal. In addition, sodium potassium chloride CO2 normal. Anion gap a bit high at 14. BUN and creatinine were 106 and 5.91. Closed his baseline and he has not required hemodialysis. Medications are reviewed. Chest x-ray shows bilateral small effusions. Again overall prognosis remains extremely poor. Medications are reviewed. Critical care time 33 minutes Plan dated 02/25/2018 I spent a long time talking to the sister yesterday. Unfortunately, she would like the patient to have a tracheostomy and PEG tube placement hoping they on hold but the patient will recover neurologic function. We'll consult one of the surgeons for that. In addition, the patient was started on Rocephin for a purulent penile discharge. The patient remains on my support. Neurologic examination is poor. EEG is consistent with profound anoxic/metabolic encephalopathy. White count 15, hemoglobin 7.8, hematocrit 24.8 and platelet count 341,000. Sodium potassium chloride CO2 all normal. Anion gap normal. BUN 116 with creatinine 6.30. Thus far, all microbiologic studies are negative. Again, the patient was started on Rocephin for a purulent penile discharge. Repeat cultures have been done. Medications labs and x-rays are all reviewed. Critical care time 33 minutes Plan dated 02/26/2018 The patient is apparently scheduled to have a hemodialysis catheter placed today and have hemodialysis today. He does need that. Obviously, the PEG and trach cannot be done until tomorrow. We'll resume his tube feeds. Currently remains on the ventilator. Neurologic examination is unchanged. Sputum showing gram-negative bacilli and presumptive staph. Chest x-ray shows diffuse bilateral infiltrates. White count 11.1 hemoglobin 7.4 hematocrit 23.6 and platelet count 308,000. Sodium potassium chloride CO2 all normal. Anion gap is 11. BUN was 131 with a creatinine of 6.60. Yesterday, BUN was 116 with a creatinine of 6.30. Medications, labs, and x-rays all reviewed. Diagnosis is very poor. We will continue to follow. His sister is okay with tracheostomy and PEG tube placement and long-term placement in a ventilator facility. Critical care time 34 minutes Plan dated 02/27/2018 The patient's antibiotics will be changed to Levaquin, which should cover both the Serratia and oxacillin sensitive staph aureus. White count is 8.1 hemoglobin 7.1 hematocrit 22.9 and platelet count is normal. Sodium potassium chloride CO2 all normal. Anion gap is 11. BUN is 110 and creatinine 5.81 chest x-ray is consistent with mild fluid overload. Hemodialysis catheter was placed. X-rays labs and medications are all reviewed. Additional recommendations and suggestions are forthcoming. Prognosis is poor. We've had the chronic ventilator facility evaluate the patient. Critical care time 33 minutes Plan dated 02/28/2018 The patient had his tracheostomy and PEG tube placed yesterday on February 27. The patient appears to be a bit more awake today. We will find out from the development planner or human services case manager about transfer to a long-term acute care facility. The patient remains on Maxipime as his antibiotic. White count 4.6, hemoglobin 7, hematocrit 23.1 and platelet count is normal. Sodium potassium chloride CO2 all normal. Anion gap is 11. BUN and creatinine were 94 and 5.64 respectively. Prognosis is still poor. Possible discharge in the next day or so to a chronic ventilator facility. We'll continue with antibiotic. Mental status is slightly improved but still very poor. Tube feeds will be resumed later today. Critical care time 34 minutes Plan dated 03/01/2018 The patient is doing reasonably well. The patient is being evaluated by a long- term acute care facility for placement early next week. Tracheostomy and PEG tube was done on February 27. The patient remains on cefepime for his Serratia marcescens and oxacillin sensitive staph aureus tracheobronchitis. Prognosis is still poor. Blood gases have been noted. White count is 6.9, hemoglobin 8.4, hematocrit 26.4, and platelet count is normal. Sodium potassium chloride and CO2 are all normal. BUN and creatinine were 77 and 5.0 respectively. Thus far, sampling of the penis has not identified any particular bacteria. The patient's overall prognosis remains poor. We will continue to follow. His neurologic status is only minimally improved. Critical care time 35 minutes Plan dated 03/02/2018 The patient's labs x-rays a medications are all reviewed. The patient's tube feeds are on hold for anticipated permanent hemodialysis catheter today. Arterial blood gases are excellent. The patient is being treated for his infection with oxacillin sensitive staph aureus and Serratia. Chest x-ray is essentially unchanged. There is minimal left a slender airspace disease and small left-sided effusion. There is cardiomegaly. We will continue to follow. The plan is to discharge the patient to long-term acute care for additional ventilator management sometime early next week. We will continue to follow. Prognosis is poor. Critical care time 33 minutes. Time with Patient: Greater than 30
[2018-03-02] MEDS: MIDAZOLAM 2 MG/2 ML VIAL IV ONE ×2 (09:43→09:53)
--- NOTE | 2018-03-02 10:31 | P.PCN ---
Description of Procedure: Preop diagnoses is acute chronic renal failure Procedure #1 removal of the dialysis catheter right femoral approach #2 ultrasound-guided placement of a 23 same dialysis catheter right internal jugular approach #3 sedation time was 36 minutes Patient was brought to the [facility] Attendant this patient had to track it neck was prepped with a professional manner after that 1% lidocaine for infected neck area and infarct several area. Ultrasound-guided micropuncture introduced right internal jugular vein and forefinger advancement of the guidewire. After that we passed a regular guidewire under fluoroscopy control which was parked in the inferior vena cava. After that tendon was created through the terminal be brought 23 same dialysis catheter dilator and sheath was across on the top the guidewire through the sheath we introduced the catheter tip of the catheter at superior vena cava and atrial junction. Sheath was removed incision was closed with the Vicryl and skin was secured the catheter with 4-0 nylon dressing applied patient are to the procedure well
--- NOTE | 2018-03-02 11:12 | XR ---
EXAMINATION TYPE: XR chest 1V portable DATE OF EXAM: 03/02/2018 HISTORY: confirm dialysis catheter placement. REFERENCE: Previous study dated 03/02/2018. FINDINGS: There is a tracheostomy tube in place. Its tip overlies the tracheal air column in this sin gle frontal projection. There has been interval insertion of a large-bore, double-lumen catheter via a right internal jugular approach. Its tip is in the right atrium. There is no evidence of pneumothorax. There is some left basilar airspace disease. The right lung is clear. Pleural spaces are clear. The h eart is mildly enlarged. IMPRESSION: NO POST CATHETER INSERTION COMPLICATION.
[2018-03-02 11:27] LABS: Glucose,Whole Blood 166 mg/dL (75-99)
--- NOTE | 2018-03-02 11:46 | P.PN ---
Subjective Progress Note Date: 03/02/18 Principal diagnosis: This is a 67-year-old male known with chronic kidney disease stage IV, secondary to diabetic nephropathy with biopsy. He came in because of hyperkalemia acute kidney injury. In the emergency room he became hypoglycemic , with a blood sugar less than 20 and became unconscious. He was started on dialysis and received 3 dialysis 6 have several days on and , last dialysis was day before yesterday. He is obtunded and unresponsive on the vent in the ICU. He has a Delcid catheter. Urine output is 361 mL for the last 24 hours. He is slightly better as far as his level of consciousness and concern he opens eyes but does not make any purposeful movement nor does he make any eye contact. He does withdraw to light on his eyes but not to visual threats might have problems with visual blurring. He is stable on 30% FiO2. His PEG and trach Objective - Vital Signs Vital signs: Vital Signs Temp 98.8 F 03/02/18 08:00 Pulse 77 03/02/18 11:29 Resp 14 03/02/18 11:15 BP 164/72 02/28/18 18:13 Pulse Ox 99 03/02/18 11:15 Intake & Output 03/01/18 03/02/18 03/02/18 18:59 06:59 18:59 Intake Total 1282 870 327 Output Total 155 206 110 Balance 1127 664 217 Weight 75 kg Intake: IV 378 276 205 Cefepime 1 gm In Sodium 50 Chloride 0.9% 50 ml @ 100 mls/hr IVPB DAILY@1700 RAINE Rx#:[id number] NS 195 240 90 Pressure bag 33 36 15 Valproate Sodium 750 mg 100 50 In Sodium Chloride 0.9% 50 ml @ 50 mls/hr IVPB TID RAINE Rx#:[id number] Tube Feeding 574 504 42 Other 330 90 80 Output: Urine 155 206 110 Other: Voiding Method Indwelling Catheter Indwelling Catheter Indwelling Catheter # Bowel Movements 1 ABP, PAP, CO, CI - Last Documented Arterial Blood Pressure 146/63 On examination as mentioned eyes are open but no eye contact. He is moving some extremities spontaneously occasionally. Remains on 30% FiO2. He is in normal sinus rhythm HEENT exam pupils are equal and reactive. No facial asymmetry noted. No JVP noted Lungs are clear to auscultation fair air entry bilaterally Heart sounds are unremarkable no murmur rub gallop Monitor shows normal sinus rhythm Abdomen soft nontender Extremity exam was no edema He has right BKA remote. Neurologically as mentioned above obtunded eyes open - Labs CBC & Chem 7: 03/02/18 04:30 03/02/18 04:30 Labs: Abnormal Lab Results - Last 24 Hours (Table) 03/01/18 03/01/18 03/01/18 Range/Units 12:00 15:45 19:56 RBC (4.30-5.90) m/uL Hgb (13.0-17.5) gm/dL Hct (39.0-53.0) % Lymphocytes # (1.0-4.8) k/uL ABG HCO3 (21-25) mmol/L ABG Total CO2 (19-24) mmol/L ABG O2 Saturation (94-97) % BUN (9-20) mg/dL Creatinine (0.66-1.25) mg/dL Glucose (74-99) mg/dL POC Glucose (mg/dL) 211 H 227 H 224 H (75-99) mg/dL Phosphorus (2.5-4.5) mg/dL Magnesium (1.6-2.3) mg/dL 03/02/18 03/02/18 03/02/18 Range/Units 00:17 03:48 04:30 RBC (4.30-5.90) m/uL Hgb (13.0-17.5) gm/dL Hct (39.0-53.0) % Lymphocytes # (1.0-4.8) k/uL ABG HCO3 (21-25) mmol/L ABG Total CO2 (19-24) mmol/L ABG O2 Saturation (94-97) % BUN 90 H (9-20) mg/dL Creatinine 5.87 H (0.66-1.25) mg/dL Glucose 217 H (74-99) mg/dL POC Glucose (mg/dL) 183 H 240 H (75-99) mg/dL Phosphorus 5.9 H (2.5-4.5) mg/dL Magnesium 2.4 H (1.6-2.3) mg/dL 03/02/18 03/02/18 03/02/18 Range/Units 04:30 05:20 07:39 RBC 2.65 L (4.30-5.90) m/uL Hgb 7.7 L (13.0-17.5) gm/dL Hct 24.7 L (39.0-53.0) % Lymphocytes # 0.9 L (1.0-4.8) k/uL ABG HCO3 26 H (21-25) mmol/L ABG Total CO2 27 H (19-24) mmol/L ABG O2 Saturation 98.6 H (94-97) % BUN (9-20) mg/dL Creatinine (0.66-1.25) mg/dL Glucose (74-99) mg/dL POC Glucose (mg/dL) 193 H (75-99) mg/dL Phosphorus (2.5-4.5) mg/dL Magnesium (1.6-2.3) mg/dL 03/02/18 Range/Units 11:20 RBC (4.30-5.90) m/uL Hgb (13.0-17.5) gm/dL Hct (39.0-53.0) % Lymphocytes # (1.0-4.8) k/uL ABG HCO3 (21-25) mmol/L ABG Total CO2 (19-24) mmol/L ABG O2 Saturation (94-97) % BUN (9-20) mg/dL Creatinine (0.66-1.25) mg/dL Glucose (74-99) mg/dL POC Glucose (mg/dL) 166 H (75-99) mg/dL Phosphorus (2.5-4.5) mg/dL Magnesium (1.6-2.3) mg/dL Microbiology - Last 24 Hours (Table) 02/24/18 05:25 Blood Culture - Final Blood No Growth after 144 hours 02/24/18 05:07 Blood Culture - Final Blood No Growth after 144 hours 03/01/18 15:15 Catheter Tip Culture - Preliminary Catheter Tip Assessment and Plan Assessment: Impression 1. Chronic kidney disease secondary diabetic nephropathy stage IV, with acute kidney injury. Hemodialysis dependent dialysis, dialysis was started on the and had 3 successive days of dialysis last dialysis being on the Saturday. Urine output is marginal in the oliguric range. No recovery of renal function yet. 2. Status post permacath placement this morning 03/02/2018. Kulwant removed from the right groin. 2. Ventilator dependent respiratory failure on 30% FiO2 stable. 3. Remote right BKA and left toe amputation. 4. Hypoglycemia and encephalopathy with blood sugar less than 20 at the time of admission. Slightly better 5. History of hep C. 6. Anemia of chronic kidney disease. Iron saturation is 10% dated 02/21/2018. 7. Trach and PEG placed Recommendation. 1. Maintain dialysis and we will dialyze him tomorrow 14/2 hours with 1 L ultrafiltration . 2. Check and monitor hemoglobin calcium phosphorus albumin and maintain adequate nutritional support with 1.5 g of protein per kilogram body weight.
[2018-03-02] MEDS: TAMSULOSIN 0.4 MG CAP.ER.24H PO SCH (12:06)
[2018-03-02] MEDS: SODIUM BICARBONATE TAB 650 MG TAB PO SCH (12:06)
[2018-03-02] MEDS: DARBEPOETIN ALFA 40 MCG/0.4 ML SYRINGE SQ SCH (13:23)
[2018-03-02 15:27] LABS: Glucose,Whole Blood 187 mg/dL (75-99)
--- NOTE | 2018-03-02 16:49 | P.PN ---
Subjective Progress Note Date: 03/02/18 Principal diagnosis: Anoxic encephalopathy Mr. Mireles is a 67-year-old male with a past medical history of cocaine abuse, congestive heart failure, seizure disorder admitted to the hospital with shortness of breath was found to have pulmonary edema. In the emergency room patient was unresponsive with questionable jerking-like activity. Eventually the patient was intubated and has been in the ICU since admission. Patient has history of stage IV chronic kidney disease, history of cocaine abuse, poorly controlled type 2 diabetes mellitus and peripheral vascular disease. Today on 03/02 - Patient still remains intubated and unresponsive. As per the nursing staff report he has only slight jerking movements of his right amputated like. Patient had a right Kulwant commode and a permacath placed this morning. Review of systems could not be done as the patient is intubated. Patient's medications have been reviewed: Tylenol 325 mg, Monica up 0.5-3 mg. Norvasc 10 mg. Lipitor 10 mg. Calcium acetate 667 mg. Ceftriaxone 1000 mg. Chlorhexidine. Clonidine 0.3 mg patch. Lasix 8 mg. Neurontin 100 mg. Heparin 5000 unit. Hydralazine 40 mg. NovoLog sliding scale. Labetalol 400 mg. Narcan 0.2 mg. protonix 40 mg. propofol on hold. sodium bicarb 650 mg. flomax 0.4 mg. thiamine 100 mg. valproic acid 750 mg. Objective - Vital Signs Vital signs: Vital Signs Temp 98.0 F 03/02/18 12:00 Pulse 76 03/02/18 15:58 Resp 14 03/02/18 15:00 BP 164/72 02/28/18 18:13 Pulse Ox 99 03/02/18 15:00 Intake & Output 03/01/18 03/02/18 03/02/18 18:59 06:59 18:59 Intake Total 1282 870 559 Output Total 155 206 190 Balance 1127 664 369 Weight 75 kg Intake: IV 378 276 297 Cefepime 1 gm In Sodium 50 Chloride 0.9% 50 ml @ 100 mls/hr IVPB DAILY@1700 [facility] Rx#:[id number] NS 195 240 170 Pressure bag 33 36 27 Valproate Sodium 750 mg 100 50 In Sodium Chloride 0.9% 50 ml @ 50 mls/hr IVPB TID RAINE Rx#:[id number] Tube Feeding 574 504 102 Other 330 90 160 Output: Urine 155 206 190 Other: Voiding Method Indwelling Catheter Indwelling Catheter Indwelling Catheter # Bowel Movements 1 ABP, PAP, CO, CI - Last Documented Arterial Blood Pressure 140/50 - Exam -GENERAL: The patient is unresponsive , does not open eyes,intubated. HEENT: No scleral icterus. No conjunctival pallor. Normocephalic, atraumatic. CARDIOVASCULAR: S1 and S2 present. No murmurs, rubs, or gallops. -PULMONARY: Chest is clear to auscultation, no wheezing. Bilateral scattered crackles. ABDOMEN: Soft, nontender, nondistended, normoactive bowel sounds. No palpable organomegaly. MUSCULOSKELETAL: No joint swelling or deformity. EXTREMITIES: No cyanosis, clubbing, or pedal edema. S/P right BKA -NEUROLOGICAL: unresponsive to verbal or painful stimuli, does not open eyes. SKIN: No rashes. - Labs CBC & Chem 7: 03/02/18 04:30 03/02/18 04:30 Labs: Abnormal Lab Results - Last 24 Hours (Table) 03/01/18 03/02/18 03/02/18 Range/Units 19:56 00:17 03:48 RBC (4.30-5.90) m/uL Hgb (13.0-17.5) gm/dL Hct (39.0-53.0) % Lymphocytes # (1.0-4.8) k/uL ABG HCO3 (21-25) mmol/L ABG Total CO2 (19-24) mmol/L ABG O2 Saturation (94-97) % BUN (9-20) mg/dL Creatinine (0.66-1.25) mg/dL Glucose (74-99) mg/dL POC Glucose (mg/dL) 224 H 183 H 240 H (75-99) mg/dL Phosphorus (2.5-4.5) mg/dL Magnesium (1.6-2.3) mg/dL 03/02/18 03/02/18 03/02/18 Range/Units 04:30 04:30 05:20 RBC 2.65 L (4.30-5.90) m/uL Hgb 7.7 L (13.0-17.5) gm/dL Hct 24.7 L (39.0-53.0) % Lymphocytes # 0.9 L (1.0-4.8) k/uL ABG HCO3 26 H (21-25) mmol/L ABG Total CO2 27 H (19-24) mmol/L ABG O2 Saturation 98.6 H (94-97) % BUN 90 H (9-20) mg/dL Creatinine 5.87 H (0.66-1.25) mg/dL Glucose 217 H (74-99) mg/dL POC Glucose (mg/dL) (75-99) mg/dL Phosphorus 5.9 H (2.5-4.5) mg/dL Magnesium 2.4 H (1.6-2.3) mg/dL 03/02/18 03/02/18 03/02/18 Range/Units 07:39 11:20 15:24 RBC (4.30-5.90) m/uL Hgb (13.0-17.5) gm/dL Hct (39.0-53.0) % Lymphocytes # (1.0-4.8) k/uL ABG HCO3 (21-25) mmol/L ABG Total CO2 (19-24) mmol/L ABG O2 Saturation (94-97) % BUN (9-20) mg/dL Creatinine (0.66-1.25) mg/dL Glucose (74-99) mg/dL POC Glucose (mg/dL) 193 H 166 H 187 H (75-99) mg/dL Phosphorus (2.5-4.5) mg/dL Magnesium (1.6-2.3) mg/dL Microbiology - Last 24 Hours (Table) 02/24/18 05:25 Blood Culture - Final Blood No Growth after 144 hours 02/24/18 05:07 Blood Culture - Final Blood No Growth after 144 hours 03/01/18 15:15 Catheter Tip Culture - Preliminary Catheter Tip Assessment and Plan Assessment: ASSESSMENT Acute and anoxic/metabolic encephalopathy Acute hypoxemic respiratory failure secondary to pulmonary edema due to diastolic dysfunction Mechanical ventilation Hypoglycemia at the time of presentation Chronic kidney disease requiring hemodialysis currently Anemia of chronic disease Type 2 diabetes mellitus poorly controlled Chronic liver disease with hepatitis C infection History of DVT Remote history of drug abuse Status post trach and PEG on February 27 Plan: Overall prognosis is very poor due to anoxic encephalopathy. As of now the patient remains a full code but this needs to be addressed. Will be continued on antibiotics in the form of cefepime as the sputum cultures are positive for Serratia and Staphylococcus. To be continued on hemodialysis as per nephrology recommendations. He is being evaluated for long-term acute care facility placement. Further recommendations depending on the progress of the patient.
[2018-03-02] MEDS: CEFEPIME 1 GM in SODIUM CHLORIDE 0.9% 50 ML IVPB SCH (17:34)
--- NOTE | 2018-03-02 19:47 | PN ---
PROGRESS NOTE DATE OF SERVICE: 03/02/2018. REASON FOR FOLLOWUP VISIT: MSSA and Serratia marcescens pneumonia. INTERVAL HISTORY: The patient is currently afebrile. He is hemodynamically stable. He is breathing comfortably currently intubated through the trach. He has been tolerating his tube feeds. No significant diarrhea. He was unable to provide any reliable history. EXAMINATION: Blood pressure is 140/50 with a pulse of 64, temperature 98. He is 99% on 30% FiO2. General description is an elderly male lying in bed in no distress. RESPIRATORY SYSTEM: Unlabored breathing. Clear to auscultation anteriorly. HEART: S1, S2. Regular rate and rhythm. ABDOMEN: Soft, no tenderness. EXTREMITIES: No edema feet. LABS: Hemoglobin 7.7, WBC 6.0, BUN of 90, creatinine 5.7. DIAGNOSTIC IMPRESSION AND PLAN: Patient with evidence of a fever, elevated white count with pulmonary infiltrate suspicious for pneumonia. Sputum has been showing MSSA and Serratia marcescens. Currently on Cipro and that will be continued for now. Continue supportive care watching his clinical course closely. Continue supportive care. MMODL / IJN: [id number] /
[2018-03-02 20:25] LABS: Glucose,Whole Blood 250 mg/dL (75-99)
[2018-03-02] MEDS: ATORVASTATIN 10 MG TAB PO SCH (21:36)
[2018-03-02 23:36] LABS: Glucose,Whole Blood 288 mg/dL (75-99)
[2018-03-03] MEDS: IPRATROPIUM-ALBUTEROL 3 ML NEB INHALATION SCH ×7 (00:28→23:24)
[2018-03-03] MEDS: INSULIN ASPART 100 UNIT/ML 1 ML 10 ML VIAL SQ SCH ×7 (00:56→21:02)
[2018-03-03] MEDS: HEPARIN SODIUM,PORCINE 5,000 UNIT/ML 1 ML VIAL SQ SCH ×3 (00:56→17:16)
[2018-03-03 03:55] LABS: Glucose,Whole Blood 237 mg/dL (75-99)
[2018-03-03 05:48] LABS: ABG Base Excess 1.2 mmol/L; ABG HCO3 26 mmol/L (21-25); ABG Oxygen Saturation 98.6 % (94-97); ABG PCO2 42 mmHg (35-45); ABG PO2 105 mmHg (83-108); ABG TCO2 27 mmol/L (19-24)
[2018-03-03 06:26] LABS: Basophils % (A) 0 %; Eosinophils # (A) 0.1 k/uL (0-0.7); Eosinophils % (A) 2 %; HCT 23.7 % (39.0-53.0); HGB 7.4 gm/dL (13.0-17.5); Hypochromasia Marked; Lymphocytes # (A) 0.8 k/uL (1.0-4.8); Lymphocytes % (A) 14 %; MCH 29.3 pg (25.0-35.0); MCHC 31.3 g/dL (31.0-37.0); MCV 93.8 fL (80.0-100.0); Mean Platelet Volume 7.1; Monocytes # (A) 0.5 k/uL (0-1.0); Monocytes % (A) 9 %; Neutrophils # (A) 4.2 k/uL (1.3-7.7); Neutrophils % (A) 73 %; Platelet Count 205 k/uL (150-450); RBC 2.53 m/uL (4.30-5.90); RDW 14.5 % (11.5-15.5); WBC 5.8 k/uL (3.8-10.6)
[2018-03-03 06:39] LABS: Calcium 8.3 mg/dL (8.4-10.2); Magnesium 2.4 mg/dL (1.6-2.3); Phosphorus 5.5 mg/dL (2.5-4.5); Potassium 3.8 mmol/L (3.5-5.1)
--- NOTE | 2018-03-03 08:45 | XR ---
EXAMINATION TYPE: XR chest 1V portable DATE OF EXAM: 03/03/2018 COMPARISON: 03/02/2018 HISTORY: Dialysis catheter insertion TECHNIQUE: Single frontal view of the chest is obtained. FINDINGS: Bilateral consolidation and pleural effusion noted. Mild cardiomegaly. Atherosclerotic girish nge aorta. Dialysis catheter and tracheostomy tube stable in position. IMPRESSION: Bilateral consolidation and pleural effusion. Correlate for underlying CHF.
--- NOTE | 2018-03-03 08:52 | IR ---
EXAMINATION TYPE: IR cvc insert central tunneled DATE OF EXAM: 03/02/2018 COMPARISON: NONE HISTORY: Line placement. Fluoroscopy was provided to the referring clinician. See dictated report from vascular surgery. 0.3 minutes of fluoroscopy.
--- NOTE | 2018-03-03 09:40 | P.PN ---
Subjective Patient is a 67-year-old -[place] male who is being followed by the neurology service for possible seizure. Patient was brought to [facility] emergency room with shortness of breath. He was found to have significant pulmonary edema. Patient does have stage IV chronic kidney disease. Patient was being treated in the emergency room when one of the nurses noted patient to be unresponsive. Patient had questionable jerking activity. Patient had significant hypoglycemia in the 20s. He was given D50, intubated and sedated. Patient is currently in the ICU. Computed tomography scan of the brain was done which showed no acute abnormality. Computed tomography scan did show evidence of mild generalized atrophy. Patient was noted to have some rhythmic jerking. Patient was taken off propofol and had an EEG done. EEG showed generalized slowing of the background rhythm. EEG also showed significant triphasic waves which is commonly seen in hepatic pathology. Myoclonic activity was described. Patient was started on Depakote 500 mg every 12 hours IV. Staff reports no further jerking movements since starting Depakote. Patient remains sedated with propofol and on mechanical ventilation. acute kidney injury on chronic kidney disease. Patient has chronic kidney disease stage IV secondary to biopsy-proven diabetic kidney disease with severe chronicity. His baseline creatinine has been in the range of 4-5. Creatinine was 7.65 on admission 02/23/2018 this is my first day taking care of the pt , pt is still on vent , he has been off sedation , however he is still not waking up as expected . pt could have metabolic encephalopathy , vs other . pt with acute on chronic Kidney disease stage IV. nephrology are following the case .Creatinine was 7.65 on admission and is 5.99 today. pt is been seen by neurology who recommended to repeat the EEG and result is pending.pt had subtherapeutic level and extra doses were provided for him yesterday EEG from 02/21: abnormal with significant triphasic waves which is commonly seen in hepatic encephalopahty pt still does not respond to pain stimuli. despite been off sedation since this morning. pupils are equal and reactive to light, meningeal signs were absent when i examined the pt this morning pt has h/o Hep C and B , we will check ammonia level and other work up like B12 ,thyroid function test, syphlis screen ,repeat CT of the head ,with neurology follow up. no fever , no leukocytosis 02/24/2018 no change from yesterday in his mental status from the first time a saw her , still unresponsive , neurologist team is following the pt and recommended repeat EEG. critical care input is appreciated . ammonia level and TSH were negative , repeat CT head is negative for acute process as well 02/25/2018 Patient remains unresponsive as before. Repeat EEG showing moderate encephalopathy, significant triphasic waves consistent with hepatic disease. Occasional sharp wave consistent with due to seizure threshold. But no generalized epileptiform discharge. Patient is a plan to have trach placed on the surgical site. As well as dialysis catheter for dialysis. Patient has Delcid catheter with 40 mL in the bag. There is purulent discharge from the penis. Discussed with staff. Check culture for the discharge, change. AND CHECK BLADDER SCAN 02/26/2018 Patient remains unresponsive, the same. Patient had a dialysis catheter placed. Than his going for hemodialysis currently. Patient has been evaluated by statuary painter on their input is appreciated. Patient is planned for going for PEG and tracheostomy possibly tomorrow, as per family wishes. To call care consult is appreciated. He has positive sputum culture was fracture and staphylococcus. urine discharge so there was has been changed. Urine culture is pending. We'll consult infectious diseases specialist. Patient with mild leukocytosis 02/27/2018 No improvement in the patient mental status, he remains unresponsive and intubated. Went for dialysis yesterday and today. And PEG tube with check estimated are planned for the patient's in 1 or 2 days. Prognosis remains very poor. The sputum culture is growing Serratia and staph aureus. ID consult is appreciated and patient was started on cefepime. Also patient got IV vancomycin doses . Pulmonary/critical care input is appreciated. Hemoglobin at 7.1. No leukocytosis. He had fever yesterday at 100.2 02/28/2018 pt is unresponsive, intubated , he is undergoing hemodialysis , and he is on antibiotic , he is responding a little bit to suctioning his mouth but only minimally , prognosis remains poor and guarded. pt had PEG and treacheostomy, he remains on cefepime per ID recommendation . pt has Serratia marcescens and staph aureus. while his penile c/s showing many gr-ve bacilli (areobic and unaerobic) and gram positive cocci (unaerobic) 03/03/2018 Patient is unresponsive, has tracheostomy and PEG tube. His undergoing hemodialysis. He is on antibiotics for infection his respiratory and urinary systems. Patient is smoking a grimace to painful stimuli but no more more than that. Continue with supportive care. Prognosis remains very poor Review of system: N/a Medication with dosages were reviewed including Tylenol 325 mg, Monica up 0.5-3 mg. Norvasc 10 mg. Lipitor 10 mg. Calcium acetate 667 mg. Ceftriaxone 1000 mg. Chlorhexidine. Clonidine 0.3 mg patch. Lasix 8 mg. Neurontin 100 mg. Heparin 5000 unit. Hydralazine 40 mg. NovoLog sliding scale. Labetalol 400 mg. Narcan 0.2 mg. protonix 40 mg. propofol on hold. sodium bicarb 650 mg. flomax 0.4 mg. thiamine 100 mg. valproic acid 750 mg. Objective - Vital Signs Vital signs: Vital Signs Temp 99.0 F 03/03/18 04:00 Pulse 72 03/03/18 07:48 Resp 16 03/03/18 07:00 BP 164/72 02/28/18 18:13 Pulse Ox 100 03/03/18 07:00 Intake & Output 03/02/18 03/03/18 03/03/18 18:59 06:59 18:59 Intake Total 953 536 23 Output Total 260 288 25 Balance 693 248 -2 Weight 76 kg Intake: IV 451 326 23 Cefepime 1 gm In Sodium 50 Chloride 0.9% 50 ml @ 100 mls/hr IVPB DAILY@1700 RAINE Rx#:[id number] NS 215 240 20 Pressure bag 36 36 3 Valproate Sodium 750 mg 100 50 In Sodium Chloride 0.9% 50 ml @ 50 mls/hr IVPB TID RAINE Rx#:[id number] Tube Feeding 312 210 Other 190 Output: Urine 260 288 25 Other: Voiding Method Indwelling Catheter Indwelling Catheter ABP, PAP, CO, CI - Last Documented Arterial Blood Pressure 174/66 - Labs CBC & Chem 7: 03/03/18 04:45 03/03/18 04:45 Labs: Abnormal Lab Results - Last 24 Hours (Table) 03/02/18 03/02/18 03/02/18 Range/Units 11:20 15:24 20:22 RBC (4.30-5.90) m/uL Hgb (13.0-17.5) gm/dL Hct (39.0-53.0) % Lymphocytes # (1.0-4.8) k/uL ABG HCO3 (21-25) mmol/L ABG Total CO2 (19-24) mmol/L ABG O2 Saturation (94-97) % BUN (9-20) mg/dL Creatinine (0.66-1.25) mg/dL Glucose (74-99) mg/dL POC Glucose (mg/dL) 166 H 187 H 250 H (75-99) mg/dL Calcium (8.4-10.2) mg/dL Phosphorus (2.5-4.5) mg/dL Magnesium (1.6-2.3) mg/dL 03/02/18 03/03/18 03/03/18 Range/Units 23:34 03:53 04:45 RBC (4.30-5.90) m/uL Hgb (13.0-17.5) gm/dL Hct (39.0-53.0) % Lymphocytes # (1.0-4.8) k/uL ABG HCO3 (21-25) mmol/L ABG Total CO2 (19-24) mmol/L ABG O2 Saturation (94-97) % BUN 103 H* (9-20) mg/dL Creatinine 5.94 H (0.66-1.25) mg/dL Glucose 222 H (74-99) mg/dL POC Glucose (mg/dL) 288 H 237 H (75-99) mg/dL Calcium 8.3 L (8.4-10.2) mg/dL Phosphorus 5.5 H (2.5-4.5) mg/dL Magnesium 2.4 H (1.6-2.3) mg/dL 03/03/18 03/03/18 Range/Units 04:45 05:46 RBC 2.53 L (4.30-5.90) m/uL Hgb 7.4 L (13.0-17.5) gm/dL Hct 23.7 L (39.0-53.0) % Lymphocytes # 0.8 L (1.0-4.8) k/uL ABG HCO3 26 H (21-25) mmol/L ABG Total CO2 27 H (19-24) mmol/L ABG O2 Saturation 98.6 H (94-97) % BUN (9-20) mg/dL Creatinine (0.66-1.25) mg/dL Glucose (74-99) mg/dL POC Glucose (mg/dL) (75-99) mg/dL Calcium (8.4-10.2) mg/dL Phosphorus (2.5-4.5) mg/dL Magnesium (1.6-2.3) mg/dL Microbiology - Last 24 Hours (Table) 03/01/18 15:15 Catheter Tip Culture - Preliminary Catheter Tip 02/24/18 05:25 Blood Culture - Final Blood No Growth after 144 hours 02/24/18 05:07 Blood Culture - Final Blood No Growth after 144 hours Assessment and Plan Plan: Assessment and Plan -Acute hypoxic respiratory failure: Secondary to congestive heart failure chronic diastolic dysfunction with acute exacerbation patient , with other causes occluded. He was started on high-dose of Lasix. Continuing with the ventilatory support, diurese well improved creatinine with Lasix. Improving -possible seizure related to low glu , neurology team is following the pt , on depakote and level checked as per neuro team recommendation -acute on chronic renal failure , f/u with nephrology. Patient is getting hemodialysis -metabolic encephalopathy , possibly secondary to all above -Sepsis with possible tracheobronchitis, positive sputum culture. Patient on antibiotic. 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 -Hypotension is possibly secondary to sedation antidepressive medications will be held and restarted as needed. Hyperlipidemia -Episode of seizure believed to be secondary to hypoglycemia and encephalopathy EEG showed diffuse slowing. patient has metabolic and toxic encephalopathy -Possible [place] discharge from the penile orifice. Culture: Pending DVT and GI px. pt is on heparin and protonix prognosis is very poor
[2018-03-03 09:42] LABS: Glucose,Whole Blood 246 mg/dL (75-99)
[2018-03-03] MEDS: CALCIUM ACETATE 667 MG CAP PO SCH ×2 (10:13→10:45)
[2018-03-03] MEDS: cloNIDine 0.3 MG/24HR PATCH TRANSDERM SCH (10:14)
[2018-03-03] MEDS: amLODIPine 10 MG TAB PO SCH (10:14)
[2018-03-03] MEDS: CHLORHEXIDINE GLUCONATE 15 ML CUP MUCOUS MEM SCH ×2 (10:15→21:02)
[2018-03-03] MEDS: GABAPENTIN 100 MG CAP PO SCH ×3 (10:15→21:02)
[2018-03-03] MEDS: FUROSEMIDE 10 MG/ML 10 ML VIAL IV SCH ×2 (10:15→21:02)
[2018-03-03] MEDS: SODIUM BICARBONATE TAB 650 MG TAB PO SCH (10:16)
[2018-03-03] MEDS: THIAMINE 100 MG/ML 2 ML VIAL IVP SCH (10:16)
[2018-03-03] MEDS: PANTOPRAZOLE 40 MG/10 ML VIAL IVP SCH (10:16)
[2018-03-03] MEDS: TAMSULOSIN 0.4 MG CAP.ER.24H PO SCH (10:16)
[2018-03-03] MEDS: VALPROATE SODIUM 750 MG in SODIUM CHLORIDE 0.9% 50 ML IVPB SCH ×3 (10:16→22:29)
[2018-03-03] MEDS: LABETALOL 200 MG TAB PO SCH ×3 (10:16→21:03)
[2018-03-03 10:41] LABS: Iron Saturation 9.44 (15.00-50.00)
[2018-03-03 11:55] LABS: Glucose,Whole Blood 159 mg/dL (75-99)
[2018-03-03] MEDS: cloNIDine HCL 0.2 MG TAB PO SCH ×2 (12:41→17:15)
[2018-03-03] MEDS: hydrALAZINE HCL 50 MG TAB PO SCH ×3 (13:43→22:29)
[2018-03-03 15:53] LABS: Glucose,Whole Blood 61 mg/dL (75-99)
[2018-03-03] MEDS ORDERED: DEXTROSE 50%-WATER 50 ML SYRINGE IVP ONE (15:54)
[2018-03-03] MEDS ORDERED: DEXTROSE 50%-WATER 50 ML SYRINGE IVP STA (15:55)
[2018-03-03 16:15] LABS: Glucose,Whole Blood 171 mg/dL (75-99)
[2018-03-03] MEDS: hydrALAZINE HCL 20 MG/ML 1 ML VIAL IVP PRN (16:55)
--- NOTE | 2018-03-03 17:08 | P.PN ---
Subjective Progress Note Date: 03/03/18 67-year-old -[place] male patient was currently being seen in follow-up in the intensive care units. The patient has multiple medical problems and comorbidities. The most active problem for now as his diminished level of consciousness and encephalopathy. Neurologist on the case. The patient is considered to have metabolic encephalopathy. The patient received 4 sessions of hemodialysis and there is no significant improvement in his mental status. In fact today's quite unresponsive and is not responding to any painful or verbal stimulation. No seizure activity has been noted. Pupils are sluggishly reactive to light. He is being seen by neurology. CAT scan of the brain was done that showed no abnormalities. The patient had EGD that showed no evidence of any seizure activity is consistent with encephalopathy. On today's evaluation the patient was seen to be in a mechanical ventilator. He was in a tidal volume of 500 and FiO2 of 30% and a PEEP of 5 and the respiratory rate of 14. I saw the patient was quite comfortable with his breathing and a chest x- ray showed negative abnormalities other than some small bilateral pleural effusion more so on the left. Based on that, I put the patient on a pressure support of 5 and a PEEP of 5 and the patient was able to tolerate well with tidal volumes in the 600s range and a low respiratory rate. At that point I made recommendations to discontinue the mechanical ventilator this patient knowing that he should be able to protect his airways and he should be able to breathe spontaneously by himself without the help of a mechanical ventilator. The patient will be receiving his dialysis today. The patient has had no fever. His white cell count is at 5.8. His hemoglobin is at 7.4. Renal function is impaired and the patient has stage IV kidney disease at baseline and patient's current creatinine is at 5.9 with a BUN of 103. No hyperkalemia. Blood gases from today showed a pH of 7.4 with a pCO2 of 42 and pO2 of 105 and this was done and FiO2 of 30% while the patient being an assist-control mode of ventilation. His sputum is showing Serratia and staph aureus. The staph aureus is an MSSA and based on this IV was evaluated the patient and the patient was placed on IV cefepime. Blood pressure remains elevated. I made some adjustments and suggested switching around his blood pressure medication to achieve a blood pressure control which is tighter than the one that we have right now. He is afebrile. Objective - Vital Signs Vital signs: Vital Signs Temp 98.8 F 03/03/18 12:00 Pulse 71 03/03/18 16:03 Resp 18 03/03/18 13:00 BP 164/72 02/28/18 18:13 Pulse Ox 100 03/03/18 13:00 Intake & Output 03/02/18 03/03/18 03/03/18 18:59 06:59 18:59 Intake Total 953 536 92 Output Total 260 288 100 Balance 693 248 -8 Weight 76 kg Intake: IV 451 326 92 Cefepime 1 gm In Sodium 50 Chloride 0.9% 50 ml @ 100 mls/hr IVPB DAILY@1700 [facility] Rx#:[id number] NS 215 240 80 Pressure bag 36 36 12 Valproate Sodium 750 mg 100 50 In Sodium Chloride 0.9% 50 ml @ 50 mls/hr IVPB TID [facility] Rx#:[id number] Tube Feeding 312 210 Other 190 Output: Urine 260 288 100 Other: Voiding Method Indwelling Catheter Indwelling Catheter Indwelling Catheter ABP, PAP, CO, CI - Last Documented Arterial Blood Pressure 162/62 - Exam Gen. appearance the patient is a calm and comfortable individual resting comfortably in bed. He is unresponsive not following any verbal commands or painful stimulation. HEENT examination is grossly unremarkable. Mucous membranes are moist. No oral lesions. Neck supple. Full range of motion. No adenopathy thyromegaly or neck vein distention. A midline tracheostomy is noted. The patient has a Shiley tracheostomy tube in place #8. Cardiovascular examination reveals regular rhythm rate. S1-S2 normal. No S3 or S4. Lungs reveal mostly clear breath sounds. Her sounds are equal bilaterally. There are a few scattered rhonchi. No wheezes or crackles. Abdomen soft bowel sounds are heard. No masses or tenderness. PEG tube is noted. Extremities are intact. No cyanosis clubbing or edema. Skin is without rash or lesion. Neurologic examination is difficult to assess but she does arouse and open her eyes to verbal stimuli.No seizure activity has been noted. Pupils around 4-5 mm in size and they're sluggishly reactive to light. No clonus. - Labs CBC & Chem 7: 03/03/18 04:45 03/03/18 04:45 Labs: Abnormal Lab Results - Last 24 Hours (Table) 03/02/18 03/02/18 03/02/18 Range/Units 12:20 20:22 23:34 RBC (4.30-5.90) m/uL Hgb (13.0-17.5) gm/dL Hct (39.0-53.0) % Lymphocytes # (1.0-4.8) k/uL ABG HCO3 (21-25) mmol/L ABG Total CO2 (19-24) mmol/L ABG O2 Saturation (94-97) % BUN (9-20) mg/dL Creatinine (0.66-1.25) mg/dL Glucose (74-99) mg/dL POC Glucose (mg/dL) 250 H 288 H (75-99) mg/dL Calcium (8.4-10.2) mg/dL Phosphorus (2.5-4.5) mg/dL Magnesium (1.6-2.3) mg/dL Iron 22 L (65-175) ug/dL Iron Saturation 9.44 L (15.00-50.00) 03/03/18 03/03/18 03/03/18 Range/Units 03:53 04:45 04:45 RBC 2.53 L (4.30-5.90) m/uL Hgb 7.4 L (13.0-17.5) gm/dL Hct 23.7 L (39.0-53.0) % Lymphocytes # 0.8 L (1.0-4.8) k/uL ABG HCO3 (21-25) mmol/L ABG Total CO2 (19-24) mmol/L ABG O2 Saturation (94-97) % BUN 103 H* (9-20) mg/dL Creatinine 5.94 H (0.66-1.25) mg/dL Glucose 222 H (74-99) mg/dL POC Glucose (mg/dL) 237 H (75-99) mg/dL Calcium 8.3 L (8.4-10.2) mg/dL Phosphorus 5.5 H (2.5-4.5) mg/dL Magnesium 2.4 H (1.6-2.3) mg/dL Iron (65-175) ug/dL Iron Saturation (15.00-50.00) 03/03/18 03/03/1818 Range/Units 05:46 09:38 11:53 RBC (4.30-5.90) m/uL Hgb (13.0-17.5) gm/dL Hct (39.0-53.0) % Lymphocytes # (1.0-4.8) k/uL ABG HCO3 26 H (21-25) mmol/L ABG Total CO2 27 H (19-24) mmol/L ABG O2 Saturation 98.6 H (94-97) % BUN (9-20) mg/dL Creatinine (0.66-1.25) mg/dL Glucose (74-99) mg/dL POC Glucose (mg/dL) 246 H 159 H (75-99) mg/dL Calcium (8.4-10.2) mg/dL Phosphorus (2.5-4.5) mg/dL Magnesium (1.6-2.3) mg/dL Iron (65-175) ug/dL Iron Saturation (15.00-50.00) 03/03/18 03/03/18 Range/Units 15:48 16:12 RBC (4.30-5.90) m/uL Hgb (13.0-17.5) gm/dL Hct (39.0-53.0) % Lymphocytes # (1.0-4.8) k/uL ABG HCO3 (21-25) mmol/L ABG Total CO2 (19-24) mmol/L ABG O2 Saturation (94-97) % BUN (9-20) mg/dL Creatinine (0.66-1.25) mg/dL Glucose (74-99) mg/dL POC Glucose (mg/dL) 61 L 171 H (75-99) mg/dL Calcium (8.4-10.2) mg/dL Phosphorus (2.5-4.5) mg/dL Magnesium (1.6-2.3) mg/dL Iron (65-175) ug/dL Iron Saturation (15.00-50.00) Microbiology - Last 24 Hours (Table) 03/01/18 15:15 Catheter Tip Culture - Preliminary Catheter Tip Assessment and Plan Plan: 1 Acute pulmonary edema with hypoxemic respiratory failure secondary to diastolic dysfunction. The patient has been dialyzed in the volume status is improved and the patient is currently on assist control mode of ventilation and he was able to breathe spontaneously on a pressure support mode of ventilation without any major difficulties. Based on that I made recommendations to switch this patient to a trach collar and discontinue the mechanical ventilator. 2 Intubation with mechanical ventilation on February 20 for respiratory failure , currently on a trach collar and is post a customer service insertion for prolonged ventilator dependence 30 failure. 3 Profound hypoglycemia on presentation, with a possibility the of a low blood sugar/hypoglycemic [employer]TING [employer] injury and secondary metabolic encephalopathy 4 Serratia marcescens and oxacillin sensitive staph aureus tracheobronchitis/ bronchopneumonia, currently on IV cefepime 5 diminished level of consciousness/unresponsiveness possibly secondary to anoxic/metabolic encephalopathy. 6 Acute kidney injury with ATN, on top of chronic stage 4-5 chronic kidney disease. The patient is currently on hemodialysis 7 History of chronic anemia 8 COPD 9 Diabetes mellitus with diabetic neuropathy and nephropathy. 10 History of hepatitis C infection 11 History of chronic liver disease 12 History of gout 13 History of deep venous thrombosis 14 History of chronic back pain 15 Remote history of IV drug abuse 16 History of hypertensive urgency, current blood pressure is under poor control PLAN Discontinue the Catapres patch and put the patient on clonidine 0.2 mg by mouth 3 times a day. Switch this patient to hydralazine 100 mg 3 times a day. Continue the Norvasc 10 mg by mouth daily. Monitor the blood sugar. Continue enteral feeding for nutritional support. Place the patient on a trach collar. Continue rest of the medication including IV cefepime. Monitor mental status and neurology follow-up. Long-term prognosis poor based on the above-mentioned comorbidities. The patient is still dialyzing for the possibility of underlying metabolic encephalopathy. The first on the case. We'll make further recommendations as the patient progresses. He'll be kept in ICU. We' ll continue to follow and this is a critically care evaluation. This was done and more than 30 minutes. Time with Patient: Greater than 30
[2018-03-03] MEDS: SEVELAMER 800 MG TAB PO SCH (17:19)
--- NOTE | 2018-03-03 17:43 | PN ---
PROGRESS NOTE DATE OF SERVICE: 03/03/2018. HISTORY: The patient is seen for followup for advanced renal failure. He is currently maintained on hemodialysis. The patient is seen on dialysis. He is tolerating his treatment well. Blood pressure is on the higher side. He is not on any sedation. Has minimal neuro response. FiO2 is at 30%. EXAMINATION: Heart, S1, S2. Examination of lungs, bilateral breath sounds are heard. Patient remains on the vent. Abdomen is soft, nontender. There is edema noted in the upper extremities. Patient has right BKA. 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 LABS: Sodium 141, potassium 3.8, BUN 103, serum creatinine 5.9, hemoglobin 7.4. ASSESSMENT: 1. Chronic kidney disease, currently hemodialysis dependent. The patient is being dialyzed today. We will dialyze him again on Saturday. The urine output is at about 20 mL an hour. 2. Volume overload. I will increase UF to 2 to 3 L. 3. Vent-dependent respiratory failure. 4. Hepatitis C with positive viral RNA. 5. History of right below knee amputation. PLAN: Hemodialysis today. Monitor hemoglobin and maintain him on Aranesp as well. Continue with the current dose of Lasix as well and the phosphate binders. Repeat labs in a.m. Discontinue sodium bicarb. MMODL / IJN: [id number] /
[2018-03-03] MEDS: CEFEPIME 1 GM in SODIUM CHLORIDE 0.9% 50 ML IVPB SCH (17:59)
[2018-03-03 20:07] LABS: Glucose,Whole Blood 201 mg/dL (75-99)
[2018-03-03] MEDS: ATORVASTATIN 10 MG TAB PO SCH (21:02)
--- NOTE | 2018-03-03 23:01 | PN ---
PROGRESS NOTE DATE OF SERVICE: 03/03/2018. REASON FOR FOLLOWUP: Serratia marcescens and MSSA pneumonia. INTERVAL HISTORY: The patient is currently afebrile. He is breathing comfortably. Hemodynamically stable. Not on pressor support. Blood pressure has been high side. Currently on a trach collar. Tolerating his tube feeds. Remains to be encephalopathic, not able to provide any history. EXAMINATION: Blood pressure 145/56, pulse of 71, temperature 98. He is 98% on 40% FiO2. General description is an elderly male lying in bed in no distress. Respiratory system unlabored breathing. Some decreased breath sounds in the bases. No wheeze. Heart S1, S2. Regular rate and rhythm. Abdomen soft. No tenderness. LABS: Hemoglobin 7.4, white count 5.8. BUN 103, creatinine 5.4. DIAGNOSTIC IMPRESSION AND PLAN: Patient with acute respiratory failure which is likely multifactorial with possible component of pneumonia. Sputum has Staph aureus which is MSSA in a patient currently covered with Rocephin that will be continued for now while waiting for his condition to stabilize. Finish course of therapy. Continue supportive care. MMODL / IJN: [id number] /
[2018-03-04] MEDS: cloNIDine HCL 0.2 MG TAB PO SCH ×4 (01:04→21:20)
[2018-03-04 01:06] LABS: Glucose,Whole Blood 232 mg/dL (75-99)
[2018-03-04] MEDS: INSULIN ASPART 100 UNIT/ML 1 ML 10 ML VIAL SQ SCH ×7 (01:07→23:44)
[2018-03-04] MEDS: HEPARIN SODIUM,PORCINE 5,000 UNIT/ML 1 ML VIAL SQ SCH ×4 (01:07→23:44)
[2018-03-04] MEDS: IPRATROPIUM-ALBUTEROL 3 ML NEB INHALATION SCH ×5 (03:36→20:10)
[2018-03-04 04:27] LABS: Glucose,Whole Blood 212 mg/dL (75-99)
[2018-03-04 04:48] LABS: HCT 25.1 % (39.0-53.0); HGB 7.9 gm/dL (13.0-17.5); Hypochromasia Slight; MCH 29.2 pg (25.0-35.0); MCHC 31.6 g/dL (31.0-37.0); MCV 92.3 fL (80.0-100.0); Mean Platelet Volume 7.3; Platelet Count 211 k/uL (150-450); RBC 2.72 m/uL (4.30-5.90); RDW 14.3 % (11.5-15.5); WBC 6.8 k/uL (3.8-10.6)
[2018-03-04 04:58] LABS: Albumin 2.6 g/dL (3.5-5.0); Calcium 8.1 mg/dL (8.4-10.2); Magnesium 2.1 mg/dL (1.6-2.3); Phosphorus 3.4 mg/dL (2.5-4.5); Potassium 3.2 mmol/L (3.5-5.1); Total Bilirubin 0.3 mg/dL (0.2-1.3)
[2018-03-04 08:16] LABS: Glucose,Whole Blood 190 mg/dL (75-99)
--- NOTE | 2018-03-04 08:17 | XR ---
EXAMINATION TYPE: XR chest 1V portable DATE OF EXAM: 03/04/2018 COMPARISON: Prior chest x-ray 03/03/2018 HISTORY: Fluid overload TECHNIQUE: Single frontal view of the chest is obtained. FINDINGS: Tracheostomy tube is overlying appropriate position, right jugular central venous catheter shows the distal tip at the cavoatrial junction. The interstitium and central vascularity are promin ent. Patient is rotated and the heart is enlarged. Basilar increased density persists. Interval impro anu visualization of the right hemidiaphragm. IMPRESSION: Findings compatible with volume overload and congestive heart failure, probable associat ed pleural effusion and atelectasis versus edema. Rotated exam. There is some improved aeration at th e right lung base.
[2018-03-04] MEDS: VALPROATE SODIUM 750 MG in SODIUM CHLORIDE 0.9% 50 ML IVPB SCH ×3 (08:32→21:20)
[2018-03-04] MEDS: hydrALAZINE HCL 50 MG TAB PO SCH ×3 (08:32→21:21)
[2018-03-04] MEDS: amLODIPine 10 MG TAB PO SCH (08:33)
[2018-03-04] MEDS: SEVELAMER 800 MG TAB PO SCH ×2 (08:33→16:04)
[2018-03-04] MEDS: THIAMINE 100 MG/ML 2 ML VIAL IVP SCH (08:33)
[2018-03-04] MEDS: LABETALOL 200 MG TAB PO SCH ×3 (08:33→21:20)
[2018-03-04] MEDS: CHLORHEXIDINE GLUCONATE 15 ML CUP MUCOUS MEM SCH ×2 (08:33→21:21)
[2018-03-04] MEDS: TAMSULOSIN 0.4 MG CAP.ER.24H PO SCH (08:33)
[2018-03-04] MEDS: GABAPENTIN 100 MG CAP PO SCH ×3 (08:33→21:20)
[2018-03-04] MEDS: FUROSEMIDE 10 MG/ML 10 ML VIAL IV SCH ×2 (08:35→21:20)
[2018-03-04] MEDS ORDERED: PANTOPRAZOLE 40 MG TABLET PO SCH (09:00)
[2018-03-04] MEDS: PANTOPRAZOLE 40 MG/10 ML VIAL IVP SCH (09:43)
--- NOTE | 2018-03-04 11:11 | P.PN ---
Subjective Progress Note Date: 03/04/18 67-year-old -[place] male patient was currently being seen in follow-up in the intensive care units. The patient has multiple medical problems and comorbidities. The most active problem for now as his diminished level of consciousness and encephalopathy. Neurologist on the case. The patient is considered to have metabolic encephalopathy. The patient received 4 sessions of hemodialysis and there is no significant improvement in his mental status. In fact today's quite unresponsive and is not responding to any painful or verbal stimulation. No seizure activity has been noted. Pupils are sluggishly reactive to light. He is being seen by neurology. CAT scan of the brain was done that showed no abnormalities. The patient had EGD that showed no evidence of any seizure activity is consistent with encephalopathy. On today's evaluation the patient was seen to be in a mechanical ventilator. He was in a tidal volume of 500 and FiO2 of 30% and a PEEP of 5 and the respiratory rate of 14. I saw the patient was quite comfortable with his breathing and a chest x- ray showed negative abnormalities other than some small bilateral pleural effusion more so on the left. Based on that, I put the patient on a pressure support of 5 and a PEEP of 5 and the patient was able to tolerate well with tidal volumes in the 600s range and a low respiratory rate. At that point I made recommendations to discontinue the mechanical ventilator this patient knowing that he should be able to protect his airways and he should be able to breathe spontaneously by himself without the help of a mechanical ventilator. The patient will be receiving his dialysis today. The patient has had no fever. His white cell count is at 5.8. His hemoglobin is at 7.4. Renal function is impaired and the patient has stage IV kidney disease at baseline and patient's current creatinine is at 5.9 with a BUN of 103. No hyperkalemia. Blood gases from today showed a pH of 7.4 with a pCO2 of 42 and pO2 of 105 and this was done and FiO2 of 30% while the patient being an assist-control mode of ventilation. His sputum is showing Serratia and staph aureus. The staph aureus is an MSSA and based on this IV was evaluated the patient and the patient was placed on IV cefepime. Blood pressure remains elevated. I made some adjustments and suggested switching around his blood pressure medication to achieve a blood pressure control which is tighter than the one that we have right now. He is afebrile. On 03/04/2018, Mr. damon is being seen for a follow-up. The patient remains completely unresponsive. I try to stimulate him today with deep painful stimulation and I do not see any response and he was not withdrawing to painful stimulation. The patient does not communicate. He does not maintain eye contact. Pupils are round 3 mm in size and they're reactive to light. No gag. He does have some limited cough. I was able to get him off the mechanical ventilator yesterday today's on a trach collar. Is able to breathe comfortably without any major difficulties. He underwent dialysis yesterday without a total of 2.8 L of fluid was removed. Nevertheless, he remains encephalopathic and unresponsive and the patient did not show any improvement in his mental status despite ongoing dialysis. I think neurology should come back and give us a final prognosis on this patient knowing that there may be possible height hypoglycemic brain injury and the patient could be deeply comatose due to prolonged hypoglycemia this could've happened at time of this admission. No fever. No chills. No significant rest or secretions. Chest x-ray findings are showing some mild component of CHF. The patient is tolerating enteral feeding for nutritional support. He is on IV cefepime regarding sedation staph aureus/MSSA in the sputum. Hemodynamically stable. No other significant events over the past 24 hours. Objective - Vital Signs Vital signs: Vital Signs Temp 99.4 F 03/04/18 09:00 Pulse 75 03/04/18 09:00 Resp 14 03/04/18 09:00 BP 164/72 02/28/18 18:13 Pulse Ox 99 03/04/18 09:00 Intake & Output 03/03/18 03/04/18 03/04/18 18:59 06:59 18:59 Intake Total 866 1081 245 Output Total 310 185 45 Balance 556 896 200 Weight 77.7 kg Intake: IV 326 316 119 NS 240 230 60 Pressure bag 36 36 9 Valproate Sodium 750 mg 50 50 50 In Sodium Chloride 0.9% 50 ml @ 50 mls/hr IVPB TID [facility] Rx#:[id number] Tube Feeding 420 630 126 Other 120 135 Output: Urine 310 185 45 Other: Voiding Method Indwelling Catheter Indwelling Catheter Indwelling Catheter # Bowel Movements 1 ABP, PAP, CO, CI - Last Documented Arterial Blood Pressure 173/60 - Exam Gen. appearance the patient is a calm and comfortable individual resting comfortably in bed. He is unresponsive not following any verbal commands or painful stimulation. HEENT examination is grossly unremarkable. Mucous membranes are moist. No oral lesions. Neck supple. Full range of motion. No adenopathy thyromegaly or neck vein distention. A midline tracheostomy is noted. The patient has a Shiley tracheostomy tube in place #8. Cardiovascular examination reveals regular rhythm rate. S1-S2 normal. No S3 or S4. Lungs reveal mostly clear breath sounds. Her sounds are equal bilaterally. There are a few scattered rhonchi. No wheezes or crackles. The patient is on a trach collar for now. Abdomen soft bowel sounds are heard. No masses or tenderness. PEG tube is noted. Extremities are intact. No cyanosis clubbing or edema. The patient has a below -knee and position of the right lower extremity. Left leg is within normal limits. Skin is without rash or lesion. Neurologic unresponsive and deeply comatose. Pupils are 3 mm in size and they' re reactive to light. No nystagmus. No gag. Weak cough is present. No facial asymmetry. Unresponsive to deep painful stimulation. Flaccid without hyperreflexia and the patient does not have any Babinski in the left lower extremity. No clonus. No seizure activity. - Labs CBC & Chem 7: 03/04/18 04:25 03/04/18 04:25 Labs: Abnormal Lab Results - Last 24 Hours (Table) 03/03/18 03/03/18 03/03/18 Range/Units 11:53 15:48 16:12 RBC (4.30-5.90) m/uL Hgb (13.0-17.5) gm/dL Hct (39.0-53.0) % Potassium (3.5-5.1) mmol/L Carbon Dioxide (22-30) mmol/L BUN (9-20) mg/dL Creatinine (0.66-1.25) mg/dL Glucose (74-99) mg/dL POC Glucose (mg/dL) 159 H 61 L 171 H (75-99) mg/dL Calcium (8.4-10.2) mg/dL Total Protein (6.3-8.2) g/dL Albumin (3.5-5.0) g/dL 03/03/18 03/04/18 03/04/18 Range/Units 20:05 01:03 04:24 RBC (4.30-5.90) m/uL Hgb (13.0-17.5) gm/dL Hct (39.0-53.0) % Potassium (3.5-5.1) mmol/L Carbon Dioxide (22-30) mmol/L BUN (9-20) mg/dL Creatinine (0.66-1.25) mg/dL Glucose (74-99) mg/dL POC Glucose (mg/dL) 201 H 232 H 212 H (75-99) mg/dL Calcium (8.4-10.2) mg/dL Total Protein (6.3-8.2) g/dL Albumin (3.5-5.0) g/dL 03/04/18 03/04/18 03/04/18 Range/Units 04:25 04:25 08:09 RBC 2.72 L (4.30-5.90) m/uL Hgb 7.9 L (13.0-17.5) gm/dL Hct 25.1 L (39.0-53.0) % Potassium 3.2 L (3.5-5.1) mmol/L Carbon Dioxide 32 H (22-30) mmol/L BUN 60 H (9-20) mg/dL Creatinine 3.96 H (0.66-1.25) mg/dL Glucose 197 H (74-99) mg/dL POC Glucose (mg/dL) 190 H (75-99) mg/dL Calcium 8.1 L (8.4-10.2) mg/dL Total Protein 6.0 L (6.3-8.2) g/dL Albumin 2.6 L (3.5-5.0) g/dL Microbiology - Last 24 Hours (Table) 03/01/18 15:15 Catheter Tip Culture - Final Catheter Tip Assessment and Plan Plan: 1 Acute pulmonary edema with hypoxemic respiratory failure secondary to diastolic dysfunction. The patient has been dialyzed in the volume status is improved and the patient was taken off the mechanical ventilator and he was placed on a trach collar and is able to oxygenate and ventilate well with a 30% trach collar. He has MSSA and Serratia in his sputum and currently is on IV cefepime. Chest x-ray still showing some mild pulmonary vessel congestion. He underwent dialysis yesterday with a 2.8 L of ultrafiltration. 2 respiratory failure, acute requiring Intubation with mechanical ventilation on February 20 for respiratory failure, currently on a trach collar with 30% FiO2 3 Profound hypoglycemia on presentation, with a possibility the of a low blood sugar/hypoglycemic [employer] injury and secondary metabolic encephalopathy, as the patient remains comatose and the patient is not showing any signs of recovery. 4 Serratia marcescens and oxacillin sensitive staph aureus tracheobronchitis/ bronchopneumonia, currently on IV cefepime 5 diminished level of consciousness/unresponsiveness possibly secondary to anoxic/metabolic encephalopathy secondary to prolonged hypoglycemia. 6 Acute kidney injury with ATN, on top of chronic stage 4-5 chronic kidney disease. The patient is currently on hemodialysis and the patient's last hemodialysis was yesterday and no significant electrolyte disturbance at this point in time. 7 History of chronic anemia 8 COPD 9 Diabetes mellitus with diabetic neuropathy and nephropathy. 10 History of hepatitis C infection 11 History of chronic liver disease 12 History of gout 13 History of deep venous thrombosis 14 History of chronic back pain 15 Remote history of IV drug abuse 16 History of hypertensive urgency, current blood pressure is under poor control PLAN Blood pressure is under better control. Neurologically the patient is still unresponsive and comatose. Would like to repeat the CAT scan of the brain and the EEG and discuss it over again with neurology to establish prognosis and treatment plan. I suggest hospice care for this patient if I do not see any improvement neurologically, and for that reason I would like the neurologist input in this regard. We'll check a baseline ammonia level. Continue hemodialysis per nephrology although that he. HEENT without and the patient had did not improve intact his mental status. He was taken off the mechanical ventilator and currently is on a trach collar. Continue IV cefepime. Continue supportive care. Every feeding for now. Repeat CAT scan of the brain. Repeat EEG. Discussed with urology to establish and final prognosis regarding his level of consciousness and possibility of hypoglycemic/anoxic encephalopathy. Will need to have further discussion with the family. We'll need to have further discussion with urology and nephrology. We'll continue to follow. This is a critically care evaluation was done and 35 minutes. Time with Patient: Greater than 30
--- NOTE | 2018-03-04 11:22 | P.PN ---
Subjective Patient is a 67-year-old -[place] male who is being followed by the neurology service for possible seizure. Patient was brought to [facility] emergency room with shortness of breath. He was found to have significant pulmonary edema. Patient does have stage IV chronic kidney disease. Patient was being treated in the emergency room when one of the nurses noted patient to be unresponsive. Patient had questionable jerking activity. Patient had significant hypoglycemia in the 20s. He was given D50, intubated and sedated. Patient is currently in the ICU. Computed tomography scan of the brain was done which showed no acute abnormality. Computed tomography scan did show evidence of mild generalized atrophy. Patient was noted to have some rhythmic jerking. Patient was taken off propofol and had an EEG done. EEG showed generalized slowing of the background rhythm. EEG also showed significant triphasic waves which is commonly seen in hepatic pathology. Myoclonic activity was described. Patient was started on Depakote 500 mg every 12 hours IV. Staff reports no further jerking movements since starting Depakote. Patient remains sedated with propofol and on mechanical ventilation. acute kidney injury on chronic kidney disease. Patient has chronic kidney disease stage IV secondary to biopsy-proven diabetic kidney disease with severe chronicity. His baseline creatinine has been in the range of 4-5. Creatinine was 7.65 on admission 02/23/2018 this is my first day taking care of the pt , pt is still on vent , he has been off sedation , however he is still not waking up as expected . pt could have metabolic encephalopathy , vs other . pt with acute on chronic Kidney disease stage IV. nephrology are following the case .Creatinine was 7.65 on admission and is 5.99 today. pt is been seen by neurology who recommended to repeat the EEG and result is pending.pt had subtherapeutic level and extra doses were provided for him yesterday EEG from 02/21: abnormal with significant triphasic waves which is commonly seen in hepatic encephalopahty pt still does not respond to pain stimuli. despite been off sedation since this morning. pupils are equal and reactive to light, meningeal signs were absent when i examined the pt this morning pt has h/o Hep C and B , we will check ammonia level and other work up like B12 ,thyroid function test, syphlis screen ,repeat CT of the head ,with neurology follow up. no fever , no leukocytosis 02/24/2018 no change from yesterday in his mental status from the first time a saw her , still unresponsive , neurologist team is following the pt and recommended repeat EEG. critical care input is appreciated . ammonia level and TSH were negative , repeat CT head is negative for acute process as well 02/25/2018 Patient remains unresponsive as before. Repeat EEG showing moderate encephalopathy, significant triphasic waves consistent with hepatic disease. Occasional sharp wave consistent with due to seizure threshold. But no generalized epileptiform discharge. Patient is a plan to have trach placed on the surgical site. As well as dialysis catheter for dialysis. Patient has Delcid catheter with 40 mL in the bag. There is purulent discharge from the penis. Discussed with staff. Check culture for the discharge, change. AND CHECK BLADDER SCAN 02/26/2018 Patient remains unresponsive, the same. Patient had a dialysis catheter placed. Than his going for hemodialysis currently. Patient has been evaluated by tetryl screen operator on their input is appreciated. Patient is planned for going for PEG and tracheostomy possibly tomorrow, as per family wishes. To call care consult is appreciated. He has positive sputum culture was fracture and staphylococcus. urine discharge so there was has been changed. Urine culture is pending. We'll consult infectious diseases specialist. Patient with mild leukocytosis 02/27/2018 No improvement in the patient mental status, he remains unresponsive and intubated. Went for dialysis yesterday and today. And PEG tube with check estimated are planned for the patient's in 1 or 2 days. Prognosis remains very poor. The sputum culture is growing Serratia and staph aureus. ID consult is appreciated and patient was started on cefepime. Also patient got IV vancomycin doses . Pulmonary/critical care input is appreciated. Hemoglobin at 7.1. No leukocytosis. He had fever yesterday at 100.2 02/28/2018 pt is unresponsive, intubated , he is undergoing hemodialysis , and he is on antibiotic , he is responding a little bit to suctioning his mouth but only minimally , prognosis remains poor and guarded. pt had PEG and treacheostomy, he remains on cefepime per ID recommendation . pt has Serratia marcescens and staph aureus. while his penile c/s showing many gr-ve bacilli (areobic and unaerobic) and gram positive cocci (unaerobic) 03/03/2018 Patient is unresponsive, has tracheostomy and PEG tube. His undergoing hemodialysis. He is on antibiotics for infection his respiratory and urinary systems. Patient is smoking a grimace to painful stimuli but no more more than that. Continue with supportive care. Prognosis remains very poor 03/04/2018 No change in mental status of the patient, he remains unresponsive. Status post tracheostomy and PEG tube insertion. Continue with hemo-dialysis. And nephrology team are following the patient Continue with antibiotic. Continue with valproate. Critical care/pulmonary team evaluation and follow-up is appreciated. He is off mechanical ventilation currently and continue with trach collar. Continue with Protonix for GI prophylaxis. Patient has some grimace to painful stimuli, however unresponsive to verbal or tactile stimuli. Neurological evaluation is recommended with some workup like EKG and CAT scan of the brain Review of system: N/a Medication with dosages were reviewed including Tylenol 325 mg, Monica up 0.5-3 mg. Norvasc 10 mg. Lipitor 10 mg. Calcium acetate 667 mg. Ceftriaxone 1000 mg. Chlorhexidine. Clonidine 0.3 mg patch. Lasix 80 mg. Neurontin 100 mg. Heparin 5000 unit. Hydralazine 40 mg. NovoLog sliding scale. Labetalol 400 mg. Narcan 0.2 mg. protonix 40 mg. propofol on hold. sodium bicarb 650 mg. flomax 0.4 mg. thiamine 100 mg. valproic acid 750 mg. Objective - Vital Signs Vital signs: Vital Signs Temp 99.4 F 03/04/18 09:00 Pulse 70 03/04/18 11:08 Resp 14 03/04/18 09:00 BP 164/72 02/28/18 18:13 Pulse Ox 99 03/04/18 09:00 Intake & Output 03/03/18 03/04/18 03/04/18 18:59 06:59 18:59 Intake Total 866 1081 245 Output Total 310 185 45 Balance 556 896 200 Weight 77.7 kg Intake: IV 326 316 119 NS 240 230 60 Pressure bag 36 36 9 Valproate Sodium 750 mg 50 50 50 In Sodium Chloride 0.9% 50 ml @ 50 mls/hr IVPB TID [facility] Rx#:[id number] Tube Feeding 420 630 126 Other 120 135 Output: Urine 310 185 45 Other: Voiding Method Indwelling Catheter Indwelling Catheter Indwelling Catheter # Bowel Movements 1 ABP, PAP, CO, CI - Last Documented Arterial Blood Pressure 173/60 - Exam -GENERAL: The patient is unresponsive , does not open eyes,intubated. not in any acute distress. Well developed, HEENT: Pupils are round and equally reacting to light. EOMI. No scleral icterus. No conjunctival pallor. Normocephalic, atraumatic. No pharyngeal erythema. No thyromegaly. CARDIOVASCULAR: S1 and S2 present. No murmurs, rubs, or gallops. -PULMONARY: Chest is clear to auscultation, no wheezing. Bilateral scattered crackles. ABDOMEN: Soft, nontender, nondistended, normoactive bowel sounds. No palpable organomegaly. MUSCULOSKELETAL: No joint swelling or deformity. EXTREMITIES: No cyanosis, clubbing, or pedal edema. -s/p right BKA -NEUROLOGICAL: unresponsive to verbal or painful stinuli, does not open eyes. SKIN: No rashes. - Labs CBC & Chem 7: 03/04/18 04:25 03/04/18 04:25 Labs: Abnormal Lab Results - Last 24 Hours (Table) 03/03/18 03/03/18 03/03/18 Range/Units 11:53 15:48 16:12 RBC (4.30-5.90) m/uL Hgb (13.0-17.5) gm/dL Hct (39.0-53.0) % Potassium (3.5-5.1) mmol/L Carbon Dioxide (22-30) mmol/L BUN (9-20) mg/dL Creatinine (0.66-1.25) mg/dL Glucose (74-99) mg/dL POC Glucose (mg/dL) 159 H 61 L 171 H (75-99) mg/dL Calcium (8.4-10.2) mg/dL Total Protein (6.3-8.2) g/dL Albumin (3.5-5.0) g/dL 03/03/18 03/04/18 03/04/18 Range/Units 20:05 01:03 04:24 RBC (4.30-5.90) m/uL Hgb (13.0-17.5) gm/dL Hct (39.0-53.0) % Potassium (3.5-5.1) mmol/L Carbon Dioxide (22-30) mmol/L BUN (9-20) mg/dL Creatinine (0.66-1.25) mg/dL Glucose (74-99) mg/dL POC Glucose (mg/dL) 201 H 232 H 212 H (75-99) mg/dL Calcium (8.4-10.2) mg/dL Total Protein (6.3-8.2) g/dL Albumin (3.5-5.0) g/dL 03/04/18 03/04/18 03/04/18 Range/Units 04:25 04:25 08:09 RBC 2.72 L (4.30-5.90) m/uL Hgb 7.9 L (13.0-17.5) gm/dL Hct 25.1 L (39.0-53.0) % Potassium 3.2 L (3.5-5.1) mmol/L Carbon Dioxide 32 H (22-30) mmol/L BUN 60 H (9-20) mg/dL Creatinine 3.96 H (0.66-1.25) mg/dL Glucose 197 H (74-99) mg/dL POC Glucose (mg/dL) 190 H (75-99) mg/dL Calcium 8.1 L (8.4-10.2) mg/dL Total Protein 6.0 L (6.3-8.2) g/dL Albumin 2.6 L (3.5-5.0) g/dL Microbiology - Last 24 Hours (Table) 03/01/18 15:15 Catheter Tip Culture - Final Catheter Tip Assessment and Plan Plan: Assessment and Plan -Acute hypoxic respiratory failure: Secondary to congestive heart failure chronic diastolic dysfunction with acute exacerbation patient , with other causes occluded. He was started on high-dose of Lasix. Continuing with the ventilatory support, diurese well improved creatinine with Lasix. Improving -possible seizure versus metabolic encephalopathy related to low glu , neurology team is following the pt , on depakote and level checked as per neuro team recommendation -acute on chronic renal failure , f/u with nephrology. Patient is getting hemodialysis -metabolic encephalopathy , possibly secondary to all above -Sepsis with possible tracheobronchitis, positive sputum culture. Patient on antibiotic. 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 -Hypotension is possibly secondary to sedation antidepressive medications will be held and restarted as needed. Hyperlipidemia -Episode of seizure believed to be secondary to hypoglycemia and encephalopathy EEG showed diffuse slowing. patient has metabolic and toxic encephalopathy -Possible Purulent discharge from the penile orifice. Culture: Many gram- negative and positive bacteria, see report DVT and GI px. pt is on heparin and protonix prognosis is very poor
[2018-03-04 11:55] LABS: Glucose,Whole Blood 160 mg/dL (75-99)
[2018-03-04 16:11] LABS: Glucose,Whole Blood 121 mg/dL (75-99)
--- NOTE | 2018-03-04 17:23 | EEG ---
ELECTROENCEPHALOGRAM REPORT DATE OF SERVICE: 03/04/2018 REASON FOR TESTING: Altered mental status, encephalopathy, myoclonus. DESCRIPTION OF THE PROCEDURE: This EEG was performed using a 21-channel digital electroencephalograph, following international 10-20 system. DESCRIPTION OF THE RECORDING: From the beginning of the tracing, and with the patient's eyes closed, the background rhythm was mostly consisting of 7 Hz theta frequency in the posterior occipital leads. No obvious asymmetry is seen. Photic stimulation was performed with a minimal driving response seen. No pathological waves were elicited. Hyperventilation was not performed. No epileptiform discharges were seen, which is improved when compared to his previous EEG. His EKG lead showed a regular rate and rhythm. INTERPRETATION: This EEG is abnormal due to the presence of generalized slowing of the background rhythm, mostly in the theta range. This is consistent with mild encephalopathy. No epileptiform discharges were seen, which is improved when compared to his last EEG. Clinical correlation is recommended. YANET / DIRK: [id number] /
[2018-03-04] MEDS: CEFEPIME 1 GM in SODIUM CHLORIDE 0.9% 50 ML IVPB SCH (17:31)
[2018-03-04 20:09] LABS: Glucose,Whole Blood 158 mg/dL (75-99)
[2018-03-04 20:43] LABS: Glucose,Whole Blood 172 mg/dL (75-99)
[2018-03-04] MEDS: ATORVASTATIN 10 MG TAB PO SCH (21:21)
--- NOTE | 2018-03-04 21:53 | PN ---
PROGRESS NOTE Patient is seen for followup for her advanced renal failure. He remains on the vent. There has not been any improvement in his mentation. His blood pressure has been staying on the higher side with systolic around 170s earlier but now about 135-140 mmHg for systolic blood pressure. PHYSICAL EXAMINATION: On examination, patient is not responding much. Blood pressure this morning 149/54, heart rate 70 per minute. He is afebrile. Examination of the heart S1, S2. Examination of the lungs bilateral breath sounds are heard. Exam of lower extremity shows right below-knee amputation. The edema has improved significantly in upper and lower extremities. LAB: Show sodium 142, potassium 3.2, chloride 104, BUN 60, serum creatinine 3.96, hemoglobin 7.9 g/dL. ASSESSMENT: 1. Acute kidney injury on top of chronic kidney disease with advanced renal failure on admission with mental status changes, status post hemodialysis at least 5 sessions so far with no significant improvement in mentation. The patient will be dialyzed again tomorrow. 2. Encephalopathy, most likely related to hypoglycemia. 3. Hypokalemia. We will replace cautiously. 4. Hypertension. Blood pressure remains elevated, although not terribly high. I will dialyze the patient tomorrow. This should help with his blood pressure as well. He is maintained on high dose of hydralazine, Norvasc, clonidine. I will add Cozaar if blood pressure remains elevated. PLAN: Hemodialysis in a.m. add Cozaar if blood pressure remains elevated. Expect improvement with hemodialysis and ultrafiltration tomorrow. Overall prognosis is guarded. The patient may have significant underlying brain damage. Further discussion with family is being considered. MMODL / IJN: [id number] /
--- NOTE | 2018-03-04 22:14 | PN ---
PROGRESS NOTE DATE OF SERVICE: 03/04/2018 REASON FOR FOLLOWUP: Pneumonia. INTERVAL HISTORY: The patient is currently afebrile. He is hemodynamically stable. He has been on a trach collar, tolerating his tube feeding. No significant diarrhea; however, mentation remains a problem, as the patient is not waking up despite sedation. PHYSICAL EXAMINATION: Blood pressure 165/66, pulse of 75, temperature 98.6. He is 100% on trach collar. General description is an elderly male lying in bed in no distress. RESPIRATORY SYSTEM: Unlabored breathing. Clear to auscultation anteriorly. HEART: S1, S2. Regular rate and rhythm. ABDOMEN: Soft. No tenderness. EXTREMITIES: No edema of the feet. LABS: Hemoglobin 7.9, white count 6.8. BUN of 16, creatinine 3.96. DIAGNOSTIC IMPRESSION AND PLAN: Patient with Serratia marcescens and Staph aureus pneumonia, currently covered with cefepime. That will continue for now. Continue with supportive care. Overall prognosis remains guarded. MMODL / IJN: [id number] /
[2018-03-04 23:36] LABS: Glucose,Whole Blood 223 mg/dL (75-99)
[2018-03-05] MEDS: IPRATROPIUM-ALBUTEROL 3 ML NEB INHALATION SCH ×5 (00:29→20:37)
[2018-03-05] MEDS: INSULIN ASPART 100 UNIT/ML 1 ML 10 ML VIAL SQ SCH ×5 (04:02→21:02)
[2018-03-05 04:13] LABS: Glucose,Whole Blood 215 mg/dL (75-99)
[2018-03-05 04:31] LABS: HCT 24.9 % (39.0-53.0); HGB 7.7 gm/dL (13.0-17.5); Hypochromasia Moderate; MCH 28.6 pg (25.0-35.0); MCHC 30.9 g/dL (31.0-37.0); MCV 92.7 fL (80.0-100.0); Mean Platelet Volume 7.6; Platelet Count 231 k/uL (150-450); RBC 2.68 m/uL (4.30-5.90); RDW 14.5 % (11.5-15.5); WBC 7.7 k/uL (3.8-10.6)
[2018-03-05 04:51] LABS: Albumin 2.5 g/dL (3.5-5.0); Calcium 8.3 mg/dL (8.4-10.2); Magnesium 2.1 mg/dL (1.6-2.3); Phosphorus 3.6 mg/dL (2.5-4.5); Potassium 3.4 mmol/L (3.5-5.1); Total Bilirubin 0.3 mg/dL (0.2-1.3); Total Protein 5.9 g/dL (6.3-8.2)
[2018-03-05] MEDS ORDERED: Potassium Replacement Protocol 1 EACH MISC MISCELLANE PRN (05:35)
[2018-03-05] MEDS: POTASSIUM BICARBONATE/CIT AC 20 MEQ TABLET.EFF NG-TUBE SCH ×2 (05:42→06:28)
[2018-03-05 07:58] LABS: Glucose,Whole Blood 172 mg/dL (75-99)
[2018-03-05] MEDS: FUROSEMIDE 10 MG/ML 10 ML VIAL IV SCH ×2 (08:40→21:09)
[2018-03-05] MEDS: HEPARIN SODIUM,PORCINE 5,000 UNIT/ML 1 ML VIAL SQ SCH ×2 (08:41→16:02)
[2018-03-05] MEDS: PANTOPRAZOLE 40 MG/10 ML VIAL IVP SCH (08:41)
[2018-03-05] MEDS: THIAMINE 100 MG/ML 2 ML VIAL IVP SCH (08:41)
[2018-03-05] MEDS: GABAPENTIN 100 MG CAP PO SCH ×3 (08:42→21:09)
[2018-03-05] MEDS: TAMSULOSIN 0.4 MG CAP.ER.24H PO SCH (08:42)
[2018-03-05] MEDS: hydrALAZINE HCL 50 MG TAB PO SCH ×3 (08:42→21:09)
[2018-03-05] MEDS: LABETALOL 200 MG TAB PO SCH ×3 (08:43→21:09)
[2018-03-05] MEDS: CHLORHEXIDINE GLUCONATE 15 ML CUP MUCOUS MEM SCH ×2 (08:43→21:10)
[2018-03-05] MEDS: SEVELAMER 800 MG TAB PO SCH ×2 (08:43→16:02)
[2018-03-05] MEDS: cloNIDine HCL 0.2 MG TAB PO SCH ×3 (08:43→21:09)
[2018-03-05] MEDS: amLODIPine 10 MG TAB PO SCH (08:43)
--- NOTE | 2018-03-05 08:48 | XR ---
EXAMINATION TYPE: XR chest 1V portable DATE OF EXAM: 03/05/2018 COMPARISON: Prior chest x-ray 03/04/2018 HISTORY: Volume overload TECHNIQUE: Single frontal view of the chest is obtained. FINDINGS: Right jugular central venous catheter shows the distal tip in the right atrium. Tracheosto my tube is overlying the tracheal air column. There is no evident pneumothorax. Bibasilar increased d ensity persists, there is prominence of interstitium and central vascularity. Patient is rotated. IMPRESSION: Findings compatible with volume overload, correlate for congestive heart failure, uremia . There may be basilar effusions and associated atelectasis versus edema, pneumonia not excluded.
[2018-03-05] MEDS: VALPROATE SODIUM 750 MG in SODIUM CHLORIDE 0.9% 50 ML IVPB SCH ×3 (09:41→21:09)
--- NOTE | 2018-03-05 09:45 | P.PN ---
Subjective Progress Note Date: 03/05/18 Principal diagnosis: Acute pulmonary edema with hypoxemic respiratory failure secondary to acute congestive heart failure with diastolic dysfunction, requiring intubation and mechanical ventilation 67-year-old -[place] male patient was currently being seen in follow-up in the intensive care units. The patient has multiple medical problems and comorbidities. The most active problem for now as his diminished level of consciousness and encephalopathy. Neurologist on the case. The patient is considered to have metabolic encephalopathy. The patient received 4 sessions of hemodialysis and there is no significant improvement in his mental status. In fact today's quite unresponsive and is not responding to any painful or verbal stimulation. No seizure activity has been noted. Pupils are sluggishly reactive to light. He is being seen by neurology. CAT scan of the brain was done that showed no abnormalities. The patient had EGD that showed no evidence of any seizure activity is consistent with encephalopathy. On today's evaluation the patient was seen to be in a mechanical ventilator. He was in a tidal volume of 500 and FiO2 of 30% and a PEEP of 5 and the respiratory rate of 14. I saw the patient was quite comfortable with his breathing and a chest x- ray showed negative abnormalities other than some small bilateral pleural effusion more so on the left. Based on that, I put the patient on a pressure support of 5 and a PEEP of 5 and the patient was able to tolerate well with tidal volumes in the 600s range and a low respiratory rate. At that point I made recommendations to discontinue the mechanical ventilator this patient knowing that he should be able to protect his airways and he should be able to breathe spontaneously by himself without the help of a mechanical ventilator. The patient will be receiving his dialysis today. The patient has had no fever. His white cell count is at 5.8. His hemoglobin is at 7.4. Renal function is impaired and the patient has stage IV kidney disease at baseline and patient's current creatinine is at 5.9 with a BUN of 103. No hyperkalemia. Blood gases from today showed a pH of 7.4 with a pCO2 of 42 and pO2 of 105 and this was done and FiO2 of 30% while the patient being an assist-control mode of ventilation. His sputum is showing Serratia and staph aureus. The staph aureus is an MSSA and based on this IV was evaluated the patient and the patient was placed on IV cefepime. Blood pressure remains elevated. I made some adjustments and suggested switching around his blood pressure medication to achieve a blood pressure control which is tighter than the one that we have right now. He is afebrile. On 03/04/2018, Mr. damon is being seen for a follow-up. The patient remains completely unresponsive. I try to stimulate him today with deep painful stimulation and I do not see any response and he was not withdrawing to painful stimulation. The patient does not communicate. He does not maintain eye contact. Pupils are round 3 mm in size and they're reactive to light. No gag. He does have some limited cough. I was able to get him off the mechanical ventilator yesterday today's on a trach collar. Is able to breathe comfortably without any major difficulties. He underwent dialysis yesterday without a total of 2.8 L of fluid was removed. Nevertheless, he remains encephalopathic and unresponsive and the patient did not show any improvement in his mental status despite ongoing dialysis. I think neurology should come back and give us a final prognosis on this patient knowing that there may be possible height hypoglycemic brain injury and the patient could be deeply comatose due to prolonged hypoglycemia this could've happened at time of this admission. No fever. No chills. No significant rest or secretions. Chest x-ray findings are showing some mild component of CHF. The patient is tolerating enteral feeding for nutritional support. He is on IV cefepime regarding sedation staph aureus/MSSA in the sputum. Hemodynamically stable. No other significant events over the past 24 hours. On 03/05/2018 patient seen in follow-up in the intensive care unit. He remains unresponsive, per family, he occasionally opens his left eye, but he does not follow command. He remains on trach collar with FiO2 of 30%. This morning patient is not attempting to open his eyes, moved his head slightly to verbal and tactile stimulation. Pupils are 3 mm in size, sluggishly reactive to light. No gag or cough. Per family patient was moving his legs yesterday. Patient does not seem to be having any difficulty breathing. Did not have any dialysis yesterday, he had dialysis the day before yesterday, would removal of 2800 mL of fluid. He is scheduled for dialysis again today. His labs have been reviewed, WBC is 7.7, hemoglobin is 7.7, sodium is 140, potassium 3.4, BUN is 74, creatinine is 4.74. Patient sputum culture was positive for Serratia marcescens, and MSSA. Patient is currently on cefepime, no ongoing fever or chills. Remains on IV Lasix at 80 mg every 12 hours, and patient is producing urine in the order of 10 to 40 mL per hours. Lung sounds are clear, diminished at the bases. No significant secretions from the trach. He had a repeat EEG yesterday, which showed generalized slowing of the background rhythm in the theta range. Consistent with mild encephalopathy, no epileptiform discharges were seen. Patient has a PEG tube in place, he is on tube feedings with Nepro, at a rate of 42 ML per hour, which is goal. Objective - Vital Signs Vital signs: Vital Signs Temp 98.9 F 03/05/18 08:00 Pulse 76 03/05/18 09:00 Resp 11 L 03/05/18 09:00 BP 164/72 02/28/18 18:13 Pulse Ox 100 03/05/18 09:00 Intake & Output 03/04/18 03/05/18 03/05/18 18:59 06:59 18:59 Intake Total 804 966 191 Output Total 175 283 105 Balance 629 683 86 Weight 77.7 kg 78 kg Intake: IV 426 326 69 Cefepime 1 gm In Sodium 50 Chloride 0.9% 50 ml @ 100 mls/hr IVPB DAILY@1700 [facility] Rx#:[id number] NS 240 240 60 Pressure bag 36 36 9 Valproate Sodium 750 mg 100 50 In Sodium Chloride 0.9% 50 ml @ 50 mls/hr IVPB TID RAINE Rx#:[id number] Tube Feeding 378 420 42 Other 220 80 Output: Urine 175 283 105 Other: Voiding Method Indwelling Catheter Indwelling Catheter Indwelling Catheter ABP, PAP, CO, CI - Last Documented Arterial Blood Pressure 180/68 - Exam Gen. appearance the patient is a calm and comfortable individual resting comfortably in bed. He is unresponsive not following any verbal commands HEENT examination is grossly unremarkable. Mucous membranes are moist. No oral lesions. Neck supple. Full range of motion. No adenopathy thyromegaly or neck vein distention. A midline tracheostomy is noted. The patient has a Shiley tracheostomy tube in place #8. Cardiovascular examination reveals regular rhythm rate. S1-S2 normal. No S3 or S4. Lungs reveal mostly clear breath sounds. Her sounds are equal bilaterally. There are a few scattered rhonchi. No wheezes or crackles. The patient is on a trach collar for now. Abdomen soft bowel sounds are heard. No masses or tenderness. PEG tube is noted. Tube feedings with Nepro at a rate of 42 ML per hour, which is goal. Extremities are intact. No cyanosis clubbing or edema. The patient has a below -knee and position of the right lower extremity. Left leg is within normal limits. Skin is without rash or lesion. Neurologic unresponsive and deeply comatose. Pupils are 3 mm in size and they' re reactive to light. No nystagmus. No gag. Weak cough is present. No facial asymmetry. Unresponsive to deep painful stimulation. Flaccid without hyperreflexia and the patient does not have any Babinski in the left lower extremity. No clonus. No seizure activity. - Labs CBC & Chem 7: 03/05/18 04:10 03/05/18 04:10 Labs: Abnormal Lab Results - Last 24 Hours (Table) 03/04/18 03/04/18 03/04/18 Range/Units 11:54 16:01 19:48 RBC (4.30-5.90) m/uL Hgb (13.0-17.5) gm/dL Hct (39.0-53.0) % MCHC (31.0-37.0) g/dL Potassium (3.5-5.1) mmol/L BUN (9-20) mg/dL Creatinine (0.66-1.25) mg/dL Glucose (74-99) mg/dL POC Glucose (mg/dL) 160 H 121 H 158 H (75-99) mg/dL Calcium (8.4-10.2) mg/dL Total Protein (6.3-8.2) g/dL Albumin (3.5-5.0) g/dL 03/04/18 03/04/18 03/05/18 Range/Units 20:32 23:26 03:52 RBC (4.30-5.90) m/uL Hgb (13.0-17.5) gm/dL Hct (39.0-53.0) % MCHC (31.0-37.0) g/dL Potassium (3.5-5.1) mmol/L BUN (9-20) mg/dL Creatinine (0.66-1.25) mg/dL Glucose (74-99) mg/dL POC Glucose (mg/dL) 172 H 223 H 215 H (75-99) mg/dL Calcium (8.4-10.2) mg/dL Total Protein (6.3-8.2) g/dL Albumin (3.5-5.0) g/dL 03/05/18 03/05/18 03/05/18 Range/Units 04:10 04:10 07:36 RBC 2.68 L (4.30-5.90) m/uL Hgb 7.7 L (13.0-17.5) gm/dL Hct 24.9 L (39.0-53.0) % MCHC 30.9 L (31.0-37.0) g/dL Potassium 3.4 L (3.5-5.1) mmol/L BUN 74 H (9-20) mg/dL Creatinine 4.74 H (0.66-1.25) mg/dL Glucose 202 H (74-99) mg/dL POC Glucose (mg/dL) 172 H (75-99) mg/dL Calcium 8.3 L (8.4-10.2) mg/dL Total Protein 5.9 L (6.3-8.2) g/dL Albumin 2.5 L (3.5-5.0) g/dL Assessment and Plan Plan: Assessment: #1. Acute hypoxemic respiratory failure secondary to pulmonary edema, acute exacerbation of congestive heart failure with previously preserved ventricular systolic function #2. 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 Abdominal pain and distention, computed tomography scan of abdomen and pelvis showed diffuse subcutaneous anasarca around the entire abdomen, but no bowel obstruction #4. Acute kidney injury secondary to ATN. #5. Chronic kidney disease stage IV, biopsy-proven diabetic kidney disease #6. Hyperkalemia related to the GOKUL, improved #7. Hypertension #8. Recent hospitalization hypertensive emergency, acute on chronic renal failure, discharge to subacute rehab on 02/14/2018 #9. Chronic anemia #10. Peripheral vascular disease with previous right below the knee amputation #11. COPD #12. Diabetes mellitus, with neuropathy, retinopathy, and nephropathy #13. Hepatitis B and hepatitis C infection with chronic liver disease or graft #14. Gout #15. Previous history of DVT, currently not on any anticoagulation #16. Chronic back pain, degenerative arthritis, sciatica #17. Anxiety, depression #18. remote history of IVDA, cocaine use Plan: Today's chest x-ray has been reviewed, still shows some volume overload, basilar effusions, and associated atelectasis. Patient remains on IV diuretics , she will have another hemodialysis treatment today. Continue antibiotics per ID service recommendations, no ongoing fevers. Significant secretions from the trach. The patient remains unresponsive, and not able to follow commands. Repeat EEG still shows generalized slowing consistent with mild encephalopathy, no epileptiform discharges. Patient is breathing on his own, on FiO2 of 30% per trach collar, no difficulty. Continue supportive treatment, continue tube feedings. We will inquire with the discharge planning regarding placement to selective specialty facility. I performed a history & physical examination of the patient and discussed their management with my nurse practitioner, Rose Garcia. I reviewed the nurse practitioner's note and agree with the documented findings and plan of care. Lung sounds are clear. The findings and the impression was discussed with the patient. I attest to the documentation by the nurse practitioner. Time with Patient: Greater than 30
--- NOTE | 2018-03-05 11:53 | CT ---
EXAMINATION TYPE: CT brain wo con DATE OF EXAM: 03/05/2018 COMPARISON: 02/23/2018 INDICATION: follow up anoxic brain injury DLP: 1076 mGycm, Automated exposure control for dose reduction was used. CONTRAST: None CT of the brain is performed utilizing 3 mm thick sections through the posterior fossa and 3 mm thick sections through the remaining calvarium. Study is not performed within 24 hours of arrival to the hospital. No abnormal hyperdensity is present to suggest an acute intracranial hemorrhage. No mass lesion is evident. No acute infarcts are evident. Kennedy-white matter differentiation appears preserved. Ventricles and sulci are prominent for the patient age. Paranasal sinuses and mastoid air cells within the [id number] are clear. IMPRESSIONS: 1. Atrophy.
[2018-03-05 12:08] LABS: Glucose,Whole Blood 181 mg/dL (75-99)
--- NOTE | 2018-03-05 14:00 | PN ---
PROGRESS NOTE DATE OF SERVICE: 03/05/2018 REASON FOR FOLLOWUP: MSSA and Serratia marcescens pneumonia. INTERVAL HISTORY: The patient is currently afebrile, mentation remains to be a problem. He did have spontaneous movement, opening of his eyes and moving of his head, but he is not communicating. Has been tolerating his tube feeds. No nausea or vomiting has been noticed or any diarrhea by the nursing staff. PHYSICAL EXAMINATION: Blood pressure is 137/54 with a pulse of 58, temperature 98.9. He is 99% on trach collar. General description is an elderly male, lying in bed in no distress. RESPIRATORY SYSTEM: Unlabored breathing with decreased breath sounds at the bases, no wheeze or crackle. HEART: S1, S2. Regular rate and rhythm. ABDOMEN: Soft, no tenderness. LABS: Hemoglobin is 7.7, white count of 7.7, BUN of 34, creatinine 4.74. DIAGNOSTIC IMPRESSION AND PLAN: Patient with methicillin-sensitive Staphylococcus aureus infection and marcescens pneumonia. PLAN: At this time is to give the patient cefepime to finish his course of therapy, watching his clinical course closely. Continue with supportive care. MMODL / IJN: [id number] /
--- NOTE | 2018-03-05 15:00 | PN ---
PROGRESS NOTE Patient is seen for followup for advanced renal failure, currently hemodialysis dependent. At this time, patient continues to be unresponsive with no significant purposeful movements. Family meeting is planned for today for discussion regarding further plans of care. In the meantime, patient is scheduled for hemodialysis today. Blood pressure has been on the high side. I will resume his angiotensin receptor blockers since patient is currently on dialysis and is on pretty much high doses of other antihypertensive medications. PHYSICAL EXAMINATION: On examination today, patient is on the vent. He is unresponsive. Examination of the heart S1, S2. Examination of the lungs bilateral breath sounds are heard. Abdomen is soft, nontender. Examination of lower extremities shows right BKA. There is edema noted upper and lower extremities. DISPATCHER RELAY exam cannot be performed. The patient remains unresponsive. He has had unpurposeful movements. LABS: Sodium 140, potassium 3.4, BUN 74, serum creatinine 4.74, hemoglobin 7.7 g/dL. ASSESSMENT: 1. Chronic kidney disease with progressive renal failure, currently hemodialysis dependent. The patient is scheduled for hemodialysis today. However, given the fact that he remains unresponsive, I am not sure if we need to continue with renal replacement therapy. This will be decided after a family meeting, which is scheduled for sometime today. 2. Hypokalemia. We will continue to replace. 3. Hypertension, uncontrolled, partly volume sensitive. We will increase UF of about 2.5 L today and add Cozaar if blood pressure remains elevated. 4. Vent dependent respiratory failure. 5. Encephalopathy, most likely associated with hypoglycemia at the time of admission. PLAN: Hemodialysis today. Continue with tube feedings and further changes based on the family meeting from today. MMODL / IJN: [id number] /
--- NOTE | 2018-03-05 15:57 | P.PN ---
Subjective Progress Note Date: 03/05/18 Progress note being dictated for Dr. Coates. Interval history:Patient is a 67-year-old -[place] male who is being followed by the neurology service for possible seizure. Patient was brought to [facility] emergency room with shortness of breath. He was found to have significant pulmonary edema. Patient does have stage IV chronic kidney disease. Patient was being treated in the emergency room when one of the nurses noted patient to be unresponsive. Patient had questionable jerking activity. Patient had significant hypoglycemia in the 20s. He was given D50, intubated and sedated. Patient is currently in the ICU. Computed tomography scan of the brain was done which showed no acute abnormality. Computed tomography scan did show evidence of mild generalized atrophy. Patient was noted to have some rhythmic jerking. Patient was taken off propofol and had an EEG done. EEG showed generalized slowing of the background rhythm. EEG also showed significant triphasic waves which is commonly seen in hepatic pathology. Myoclonic activity was described. Patient was started on Depakote 500 mg every 12 hours IV. Staff reports no further jerking movements since starting Depakote. Patient remains sedated with propofol and on mechanical ventilation. acute kidney injury on chronic kidney disease. Patient has chronic kidney disease stage IV secondary to biopsy-proven diabetic kidney disease with severe chronicity. His baseline creatinine has been in the range of 4-5. Creatinine was 7.65 on admission 02/23/2018 this is my first day taking care of the pt , pt is still on vent , he has been off sedation , however he is still not waking up as expected . pt could have metabolic encephalopathy , vs other . pt with acute on chronic Kidney disease stage IV. nephrology are following the case .Creatinine was 7.65 on admission and is 5.99 today. pt is been seen by neurology who recommended to repeat the EEG and result is pending.pt had subtherapeutic level and extra doses were provided for him yesterday EEG from 02/21: abnormal with significant triphasic waves which is commonly seen in hepatic encephalopahty pt still does not respond to pain stimuli. despite been off sedation since this morning. pupils are equal and reactive to light, meningeal signs were absent when i examined the pt this morning pt has h/o Hep C and B , we will check ammonia level and other work up like B12 ,thyroid function test, syphlis screen ,repeat CT of the head ,with neurology follow up. no fever , no leukocytosis 02/24/2018 no change from yesterday in his mental status from the first time a saw her , still unresponsive , neurologist team is following the pt and recommended repeat EEG. critical care input is appreciated . ammonia level and TSH were negative , repeat CT head is negative for acute process as well 02/25/2018 Patient remains unresponsive as before. Repeat EEG showing moderate encephalopathy, significant triphasic waves consistent with hepatic disease. Occasional sharp wave consistent with due to seizure threshold. But no generalized epileptiform discharge. Patient is a plan to have trach placed on the surgical site. As well as dialysis catheter for dialysis. Patient has Delcid catheter with 40 mL in the bag. There is purulent discharge from the penis. Discussed with staff. Check culture for the discharge, change. AND CHECK BLADDER SCAN 02/26/2018 Patient remains unresponsive, the same. Patient had a dialysis catheter placed. Than his going for hemodialysis currently. Patient has been evaluated by commissary steward on their input is appreciated. Patient is planned for going for PEG and tracheostomy possibly tomorrow, as per family wishes. To call care consult is appreciated. He has positive sputum culture was fracture and staphylococcus. urine discharge so there was has been changed. Urine culture is pending. We'll consult infectious diseases specialist. Patient with mild leukocytosis 02/27/2018 No improvement in the patient mental status, he remains unresponsive and intubated. Went for dialysis yesterday and today. And PEG tube with check estimated are planned for the patient's in 1 or 2 days. Prognosis remains very poor. The sputum culture is growing Serratia and staph aureus. ID consult is appreciated and patient was started on cefepime. Also patient got IV vancomycin doses . Pulmonary/critical care input is appreciated. Hemoglobin at 7.1. No leukocytosis. He had fever yesterday at 100.2 02/28/2018 pt is unresponsive, intubated , he is undergoing hemodialysis , and he is on antibiotic , he is responding a little bit to suctioning his mouth but only minimally , prognosis remains poor and guarded. pt had PEG and treacheostomy, he remains on cefepime per ID recommendation . pt has Serratia marcescens and staph aureus. while his penile c/s showing many gr-ve bacilli (areobic and unaerobic) and gram positive cocci (unaerobic) 03/03/2018 Patient is unresponsive, has tracheostomy and PEG tube. His undergoing hemodialysis. He is on antibiotics for infection his respiratory and urinary systems. Patient is smoking a grimace to painful stimuli but no more more than that. Continue with supportive care. Prognosis remains very poor 03/04/2018 No change in mental status of the patient, he remains unresponsive. Status post tracheostomy and PEG tube insertion. Continue with hemo-dialysis. And nephrology team are following the patient Continue with antibiotic. Continue with valproate. Critical care/pulmonary team evaluation and follow-up is appreciated. He is off mechanical ventilation currently and continue with trach collar. Continue with Protonix for GI prophylaxis. Patient has some grimace to painful stimuli, however unresponsive to verbal or tactile stimuli. Neurological evaluation is recommended with some workup like EKG and CAT scan of the brain Review of system: N/a Medication with dosages were reviewed including Tylenol 325 mg, Monica up 0.5-3 mg. Norvasc 10 mg. Lipitor 10 mg. Calcium acetate 667 mg. Ceftriaxone 1000 mg. Chlorhexidine. Clonidine 0.3 mg patch. Lasix 80 mg. Neurontin 100 mg. Heparin 5000 unit. Hydralazine 40 mg. NovoLog sliding scale. Labetalol 400 mg. Narcan 0.2 mg. protonix 40 mg. propofol on hold. sodium bicarb 650 mg. flomax 0.4 mg. thiamine 100 mg. valproic acid 750 mg. 03/05/[address] reporting atrophy. Positive cough with purulent yellow secretions.Gag response absent. Tolerating tube feeds at goal with minimal to no residuals. Sputum cultures reporting Serratia marcescens, MSSA. Afebrile. Maintained on cefepime as per ID. Spontaneously opens eyes, did not witness any movement-flaccid. Not communicating, and does not follow commands. Hypertensive, ARB resumed.Scheduled for hemodialysis today. Repeat EEG yesterday, reported slowing, consistent with mild encephalopathy without epileptiform discharges seen. No seizure activity reported. Chest x-ray reporting volume overload, CHF, uremia, basilar effusions, atelectasis, maintained on IV Lasix. Continues on 30% FiO2 trach collar. Objective - Vital Signs Vital signs: Vital Signs Temp 98.8 F 03/05/18 12:00 Pulse 64 03/05/18 14:00 Resp 10 L 03/05/18 14:00 BP 164/72 02/28/18 18:13 Pulse Ox 100 03/05/18 14:00 Intake & Output 03/04/18 03/05/18 03/05/18 18:59 06:59 18:59 Intake Total 804 966 356 Output Total 175 283 270 Balance 629 683 86 Weight 77.7 kg 78 kg Intake: IV 426 326 234 Cefepime 1 gm In Sodium 50 Chloride 0.9% 50 ml @ 100 mls/hr IVPB DAILY@1700 [facility] Rx#:[id number] NS 240 240 160 Pressure bag 36 36 24 Valproate Sodium 750 mg 100 50 50 In Sodium Chloride 0.9% 50 ml @ 50 mls/hr IVPB TID [facility] Rx#:[id number] Tube Feeding 378 420 42 Other 220 80 Output: Urine 175 283 270 Other: Voiding Method Indwelling Catheter Indwelling Catheter Indwelling Catheter ABP, PAP, CO, CI - Last Documented Arterial Blood Pressure 143/58 - Exam -GENERAL: The patient is sitting up in bed, opens eyes spontaneously HEENT: Pupils are 3 mm ,round,equal and sluggish reacting to light. No scleral icterus. No conjunctival pallor. Normocephalic, atraumatic. Tracheostomy tube present. CARDIOVASCULAR: S1 and S2 present. No murmurs, rubs, or gallops. -PULMONARY: Unlabored, clear to auscultation, no wheezing, no crackles. ABDOMEN: Soft, nontender, nondistended, normoactive bowel sounds. No palpable organomegaly. PEG tube present MUSCULOSKELETAL: No joint swelling or deformity. EXTREMITIES: No cyanosis, clubbing, or pedal edema. -s/p right BKA -NEUROLOGICAL: unresponsive to verbal or painful stinuli, opens eyes spontaneously, not to commands. SKIN: No rashes. Microbiology 03/01/18 15:15 Catheter Tip Catheter Tip Culture - Final 02/24/18 05:25 Blood Blood Culture - Final No Growth after 144 hours 02/24/18 05:07 Blood Blood Culture - Final No Growth after 144 hours 02/24/18 03:05 Penis Anaerobic Culture - Final Anaerobic Gm Negative Bacilli Anaerobic Gm Negative Bacilli#2 Anaerobic Gram Positive Cocci 02/19/18 23:29 Blood Blood Culture - Final No Growth after 144 hours 02/24/18 05:35 Sputum Gram Stain - Final 02/24/18 05:35 Sputum Sputum Culture - Final Serratia marcescens Staphylococcus aureus 02/24/18 06:07 Urine,Catheterized Urine Culture - Final 02/24/18 03:05 Catheter Site Gram Stain - Final 02/24/18 03:05 Catheter Site Wound Culture - Final 02/20/18 07:55 Sputum Gram Stain - Final 02/20/18 07:55 Sputum Sputum Culture - Final 02/20/18 11:00 Urine,Catheterized Urine Culture - Final - Labs CBC & Chem 7: 03/05/18 04:10 03/05/18 04:10 Labs: Abnormal Lab Results - Last 24 Hours (Table) 03/04/18 03/04/18 03/04/18 Range/Units 16:01 19:48 20:32 RBC (4.30-5.90) m/uL Hgb (13.0-17.5) gm/dL Hct (39.0-53.0) % MCHC (31.0-37.0) g/dL Potassium (3.5-5.1) mmol/L BUN (9-20) mg/dL Creatinine (0.66-1.25) mg/dL Glucose (74-99) mg/dL POC Glucose (mg/dL) 121 H 158 H 172 H (75-99) mg/dL Calcium (8.4-10.2) mg/dL Total Protein (6.3-8.2) g/dL Albumin (3.5-5.0) g/dL 03/04/18 03/05/18 03/05/18 Range/Units 23:26 03:52 04:10 RBC 2.68 L (4.30-5.90) m/uL Hgb 7.7 L (13.0-17.5) gm/dL Hct 24.9 L (39.0-53.0) % MCHC 30.9 L (31.0-37.0) g/dL Potassium (3.5-5.1) mmol/L BUN (9-20) mg/dL Creatinine (0.66-1.25) mg/dL Glucose (74-99) mg/dL POC Glucose (mg/dL) 223 H 215 H (75-99) mg/dL Calcium (8.4-10.2) mg/dL Total Protein (6.3-8.2) g/dL Albumin (3.5-5.0) g/dL 03/05/18 03/05/18 03/05/18 Range/Units 04:10 07:36 11:57 RBC (4.30-5.90) m/uL Hgb (13.0-17.5) gm/dL Hct (39.0-53.0) % MCHC (31.0-37.0) g/dL Potassium 3.4 L (3.5-5.1) mmol/L BUN 74 H (9-20) mg/dL Creatinine 4.74 H (0.66-1.25) mg/dL Glucose 202 H (74-99) mg/dL POC Glucose (mg/dL) 172 H 181 H (75-99) mg/dL Calcium 8.3 L (8.4-10.2) mg/dL Total Protein 5.9 L (6.3-8.2) g/dL Albumin 2.5 L (3.5-5.0) g/dL Assessment and Plan Assessment: -Acute hypoxic respiratory failure: Secondary to congestive heart failure chronic diastolic dysfunction with acute exacerbation patient , with other causes occluded. He was started on high-dose of Lasix. mechanical ventilation dependent , trach collared. -Episode of seizure believed to be secondary to hypoglycemia and encephalopathy EEG showed diffuse slowing. patient has metabolic and toxic encephalopathy -acute on chronic renal failure , receiving hemodialysis -metabolic encephalopathy , possibly secondary to all above -Sepsis with possible tracheobronchitis, positive sputum culture. 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 Hyperlipidemia -Purulent discharge from the penile orifice. Culture: Many gram-negative and positive bacteria, Plan: Continue on current medication regime ,monitoring and symptomatic treatment. Scheduled for hemodialysis today. DVT and GI px. pt is on heparin and protonix. Repeat Brain CT as noted above. Sister flying in [place] .prognosis is very poor. Family meeting pending. Antibiotics as per infectious disease. The impression and plan of care has been dictated as directed. : I performed a history and examination of this patient, discussed the same with the dictator. I agree with the dictator's note ,documented as a scribe. Any additional findings or plans will be noted.
[2018-03-05] MEDS: LOSARTAN 50 MG TAB PO SCH (15:58)
[2018-03-05 20:36] LABS: Glucose,Whole Blood 87 mg/dL (75-99)
[2018-03-05 20:36] LABS: Glucose,Whole Blood 131 mg/dL (75-99)
[2018-03-05] MEDS: ATORVASTATIN 10 MG TAB PO SCH (21:09)
[2018-03-05] MEDS: CEFEPIME 1 GM in SODIUM CHLORIDE 0.9% 50 ML IVPB SCH (21:09)
[2018-03-06] MEDS: INSULIN ASPART 100 UNIT/ML 1 ML 10 ML VIAL SQ SCH ×7 (00:14→23:58)
[2018-03-06] MEDS: HEPARIN SODIUM,PORCINE 5,000 UNIT/ML 1 ML VIAL SQ SCH ×3 (00:18→16:27)
[2018-03-06 00:19] LABS: Glucose,Whole Blood 126 mg/dL (75-99)
[2018-03-06 04:45] LABS: HCT 25.2 % (39.0-53.0); Hypochromasia Slight; MCH 29.3 pg (25.0-35.0); MCHC 31.9 g/dL (31.0-37.0); MCV 91.8 fL (80.0-100.0); Mean Platelet Volume 7.4; Platelet Count 264 k/uL (150-450); RBC 2.75 m/uL (4.30-5.90); RDW 14.3 % (11.5-15.5); WBC 8.5 k/uL (3.8-10.6)
[2018-03-06 04:46] LABS: Glucose,Whole Blood 229 mg/dL (75-99)
[2018-03-06 05:25] LABS: Albumin 2.7 g/dL (3.5-5.0); Calcium 8.2 mg/dL (8.4-10.2); Magnesium 1.8 mg/dL (1.6-2.3); Phosphorus 2.8 mg/dL (2.5-4.5); Potassium 3.5 mmol/L (3.5-5.1); Total Bilirubin 0.3 mg/dL (0.2-1.3); Total Protein 6.2 g/dL (6.3-8.2)
[2018-03-06 05:26] LABS: Hepatitis B Surface AB- Quant 3.5 mIU/mL
[2018-03-06] MEDS ORDERED: Magnesium Replacement Protocol 1 EACH MISC MISCELLANE PRN (06:23)
[2018-03-06] MEDS: MAGNESIUM SULFATE-D5W PMX 1 GM in DEXTROSE/WATER 1 100ML.BAG IVPB SCH ×2 (06:26→08:45)
[2018-03-06] MEDS: POTASSIUM BICARBONATE/CIT AC 20 MEQ TABLET.EFF NG-TUBE SCH ×2 (06:26→08:49)
[2018-03-06 08:21] LABS: Glucose,Whole Blood 214 mg/dL (75-99)
--- NOTE | 2018-03-06 08:43 | XR ---
EXAMINATION TYPE: XR chest 1V portable DATE OF EXAM: 03/06/2018 COMPARISON: 03/05/2018 HISTORY: Shortness of breath TECHNIQUE: Single frontal view of the chest is obtained. FINDINGS: Bilateral consolidation and pleural effusion with diffuse interstitial pattern. Tracheosto my tube and dialysis catheter stable. No sizable pneumothorax. Cardiomegaly stable. Arthropathy right shoulder. IMPRESSION: 1. Stable pleural-parenchymal changes CHF favored over pneumonia. Correlate clinically.
[2018-03-06] MEDS: CHLORHEXIDINE GLUCONATE 15 ML CUP MUCOUS MEM SCH ×2 (08:45→23:58)
[2018-03-06] MEDS: SEVELAMER 800 MG TAB PO SCH (08:46)
[2018-03-06] MEDS: FUROSEMIDE 10 MG/ML 10 ML VIAL IV SCH ×2 (08:47→23:59)
[2018-03-06] MEDS: GABAPENTIN 100 MG CAP PO SCH ×3 (08:49→23:59)
[2018-03-06] MEDS: amLODIPine 10 MG TAB PO SCH (08:49)
[2018-03-06] MEDS: LABETALOL 200 MG TAB PO SCH ×3 (08:49→23:59)
[2018-03-06] MEDS: hydrALAZINE HCL 50 MG TAB PO SCH ×3 (08:49→23:59)
[2018-03-06] MEDS: cloNIDine HCL 0.2 MG TAB PO SCH ×3 (08:49→23:59)
[2018-03-06] MEDS: TAMSULOSIN 0.4 MG CAP.ER.24H PO SCH (08:52)
[2018-03-06] MEDS: IPRATROPIUM-ALBUTEROL 3 ML NEB INHALATION SCH ×4 (09:02→20:52)
[2018-03-06] MEDS: PANTOPRAZOLE 40 MG/10 ML VIAL IVP SCH (09:16)
[2018-03-06] MEDS: VALPROATE SODIUM 750 MG in SODIUM CHLORIDE 0.9% 50 ML IVPB SCH ×3 (09:16→23:00)
[2018-03-06] MEDS: LOSARTAN 50 MG TAB PO SCH (09:23)
[2018-03-06] MEDS: THIAMINE 100 MG/ML 2 ML VIAL IVP SCH (09:29)
--- NOTE | 2018-03-06 11:39 | P.PN ---
Subjective Patient is seen in follow-up for end-stage renal disease. He is maintained on hemodialysis on a Saturday now. Patient underwent a tracheostomy and PEG tube placement this admission. Patient is still not responsive to any commands or stimuli. Last hemodialysis was yesterday. Vital signs are stable. General: The patient appeared well nourished and normally developed. HEENT: Head exam is unremarkable. Neck is without jugular venous distension. Tracheostomy noted. LUNGS: Lungs are clear to auscultation and percussion. Breath sounds decreased. HEART: Rate and Rhythm are regular. First and second heart sounds normal. No murmurs, rubs or gallops. ABDOMEN: Abdominal exam reveals normal bowel sounds. Non-tender and non- distended. No evidence of peritonitis. EXTREMITITES: No clubbing, cyanosis, or edema. Objective - Vital Signs Vital signs: Vital Signs Temp 97.8 F 03/06/18 09:00 Pulse 68 03/06/18 11:00 Resp 15 03/06/18 11:00 BP 141/80 03/06/18 10:30 Pulse Ox 95 03/06/18 11:00 Intake & Output 03/05/18 03/06/18 03/06/18 18:59 06:59 18:59 Intake Total 521 975 358 Output Total 350 210 135 Balance 171 765 223 Weight 77.2 kg 77.2 kg Intake: IV 399 353 115 Cefepime 1 gm In Sodium 50 Chloride 0.9% 50 ml @ 100 mls/hr IVPB DAILY@1700 [facility] Rx#:[id number] NS 260 220 100 Pressure bag 39 33 15 Valproate Sodium 750 mg 100 50 In Sodium Chloride 0.9% 50 ml @ 50 mls/hr IVPB TID [facility] Rx#:[id number] Tube Feeding 42 462 168 Other 80 160 75 Output: Urine 350 210 135 Other: Voiding Method Indwelling Catheter Indwelling Catheter Indwelling Catheter # Voids 20 ABP, PAP, CO, CI - Last Documented Arterial Blood Pressure 124/51 - Labs CBC & Chem 7: 03/06/18 04:15 03/06/18 04:15 Labs: Abnormal Lab Results - Last 24 Hours (Table) 03/05/18 03/05/18 03/06/18 Range/Units 11:57 15:47 00:07 RBC (4.30-5.90) m/uL Hgb (13.0-17.5) gm/dL Hct (39.0-53.0) % Sodium (137-145) mmol/L BUN (9-20) mg/dL Creatinine (0.66-1.25) mg/dL Glucose (74-99) mg/dL POC Glucose (mg/dL) 181 H 131 H 126 H (75-99) mg/dL Calcium (8.4-10.2) mg/dL Total Protein (6.3-8.2) g/dL Albumin (3.5-5.0) g/dL 03/06/18 03/06/18 03/06/18 Range/Units 04:15 04:15 04:15 RBC 2.75 L (4.30-5.90) m/uL Hgb 8.0 L (13.0-17.5) gm/dL Hct 25.2 L (39.0-53.0) % Sodium 136 L (137-145) mmol/L BUN 43 H (9-20) mg/dL Creatinine 3.17 H (0.66-1.25) mg/dL Glucose 217 H (74-99) mg/dL POC Glucose (mg/dL) 229 H (75-99) mg/dL Calcium 8.2 L (8.4-10.2) mg/dL Total Protein 6.2 L (6.3-8.2) g/dL Albumin 2.7 L (3.5-5.0) g/dL 03/06/18 Range/Units 08:00 RBC (4.30-5.90) m/uL Hgb (13.0-17.5) gm/dL Hct (39.0-53.0) % Sodium (137-145) mmol/L BUN (9-20) mg/dL Creatinine (0.66-1.25) mg/dL Glucose (74-99) mg/dL POC Glucose (mg/dL) 214 H (75-99) mg/dL Calcium (8.4-10.2) mg/dL Total Protein (6.3-8.2) g/dL Albumin (3.5-5.0) g/dL Assessment and Plan Plan: Assessment: 1. End-stage renal disease now maintained on hemodialysis on a Saturday schedule. 2. Chronic kidney disease stage IV with baseline creatinine in the range of 4- 5. Etiology is biopsy proven diabetic kidney disease. He is noted to have severe chronicity. Now ESRD. 3. Hyperkalemia secondary to acute kidney injury. Resolved. 4. Insulin-dependent diabetes mellitus. 5. Hypertension with chronic kidney disease. Controlled. 5. Volume overload. Improved with ultrafiltration. 6. Diastolic CHF. 7. Anemia of chronic kidney disease. Iron deficiency noted. Status post 3 doses of IV iron. Maintained on Aranesp. 9. History of hepatitis C. He was to follow-up with GI as outpatient. 10. Hyperphosphatemia secondary to chronic kidney disease. Improved with dialysis. 11. Seizure which appears to be due to hypoglycemia. Neurology following. Concern for anoxia. Plan: Hemodialysis tomorrow. Maintain IV Lasix for now. Hold Renvela for now. Phosphorus level 2.8 today. Await final decision from family regarding long-term management.
[2018-03-06 11:55] LABS: Glucose,Whole Blood 236 mg/dL (75-99)
--- NOTE | 2018-03-06 14:43 | P.PN ---
Subjective Progress Note Date: 03/06/18 67-year-old -[place] male patient was currently being seen in follow-up in the intensive care units. The patient has multiple medical problems and comorbidities. The most active problem for now as his diminished level of consciousness and encephalopathy. Neurologist on the case. The patient is considered to have metabolic encephalopathy. The patient received 4 sessions of hemodialysis and there is no significant improvement in his mental status. In fact today's quite unresponsive and is not responding to any painful or verbal stimulation. No seizure activity has been noted. Pupils are sluggishly reactive to light. He is being seen by neurology. CAT scan of the brain was done that showed no abnormalities. The patient had EGD that showed no evidence of any seizure activity is consistent with encephalopathy. On today's evaluation the patient was seen to be in a mechanical ventilator. He was in a tidal volume of 500 and FiO2 of 30% and a PEEP of 5 and the respiratory rate of 14. I saw the patient was quite comfortable with his breathing and a chest x- ray showed negative abnormalities other than some small bilateral pleural effusion more so on the left. Based on that, I put the patient on a pressure support of 5 and a PEEP of 5 and the patient was able to tolerate well with tidal volumes in the 600s range and a low respiratory rate. At that point I made recommendations to discontinue the mechanical ventilator this patient knowing that he should be able to protect his airways and he should be able to breathe spontaneously by himself without the help of a mechanical ventilator. The patient will be receiving his dialysis today. The patient has had no fever. His white cell count is at 5.8. His hemoglobin is at 7.4. Renal function is impaired and the patient has stage IV kidney disease at baseline and patient's current creatinine is at 5.9 with a BUN of 103. No hyperkalemia. Blood gases from today showed a pH of 7.4 with a pCO2 of 42 and pO2 of 105 and this was done and FiO2 of 30% while the patient being an assist-control mode of ventilation. His sputum is showing Serratia and staph aureus. The staph aureus is an MSSA and based on this IV was evaluated the patient and the patient was placed on IV cefepime. Blood pressure remains elevated. I made some adjustments and suggested switching around his blood pressure medication to achieve a blood pressure control which is tighter than the one that we have right now. He is afebrile. On 03/04/2018, Mr. damon is being seen for a follow-up. The patient remains completely unresponsive. I try to stimulate him today with deep painful stimulation and I do not see any response and he was not withdrawing to painful stimulation. The patient does not communicate. He does not maintain eye contact. Pupils are round 3 mm in size and they're reactive to light. No gag. He does have some limited cough. I was able to get him off the mechanical ventilator yesterday today's on a trach collar. Is able to breathe comfortably without any major difficulties. He underwent dialysis yesterday without a total of 2.8 L of fluid was removed. Nevertheless, he remains encephalopathic and unresponsive and the patient did not show any improvement in his mental status despite ongoing dialysis. I think neurology should come back and give us a final prognosis on this patient knowing that there may be possible height hypoglycemic brain injury and the patient could be deeply comatose due to prolonged hypoglycemia this could've happened at time of this admission. No fever. No chills. No significant rest or secretions. Chest x-ray findings are showing some mild component of CHF. The patient is tolerating enteral feeding for nutritional support. He is on IV cefepime regarding sedation staph aureus/MSSA in the sputum. Hemodynamically stable. No other significant events over the past 24 hours. On 03/05/2018 patient seen in follow-up in the intensive care unit. He remains unresponsive, per family, he occasionally opens his left eye, but he does not follow command. He remains on trach collar with FiO2 of 30%. This morning patient is not attempting to open his eyes, moved his head slightly to verbal and tactile stimulation. Pupils are 3 mm in size, sluggishly reactive to light. No gag or cough. Per family patient was moving his legs yesterday. Patient does not seem to be having any difficulty breathing. Did not have any dialysis yesterday, he had dialysis the day before yesterday, would removal of 2800 mL of fluid. He is scheduled for dialysis again today. His labs have been reviewed, WBC is 7.7, hemoglobin is 7.7, sodium is 140, potassium 3.4, BUN is 74, creatinine is 4.74. Patient sputum culture was positive for Serratia marcescens, and MSSA. Patient is currently on cefepime, no ongoing fever or chills. Remains on IV Lasix at 80 mg every 12 hours, and patient is producing urine in the order of 10 to 40 mL per hours. Lung sounds are clear, diminished at the bases. No significant secretions from the trach. He had a repeat EEG yesterday, which showed generalized slowing of the background rhythm in the theta range. Consistent with mild encephalopathy, no epileptiform discharges were seen. Patient has a PEG tube in place, he is on tube feedings with Nepro, at a rate of 42 ML per hour, which is goal. On 03/06/2018 the patient remains in intensive care unit. The active issue for now is his unresponsiveness and comatose state. I'm unable to get any meaningful response from this patient. He does not follow commands. He does not track. He does not withdraw to any painful stimulation. At times he spontaneously opens up his eyes. No seizure activity has been noted. Pupils around 3-4 mm in size sluggishly reactive to light. He does have a positive cough. EEG showed diffuse slowing. There was no evidence of any seizure activity. CAT scan of the brain showed no acute process. Serum ammonia level was less than 9. The patient has undergone routine dialysis without any improvement in his mental status is in his such uremic encephalopathy is felt to be much less likely. The patient is currently on a trach collar. His tracheostomy tube is in place. No signs of any respiratory distress. No excessive oral tracheal secretions. No fever. No chills. He is undergoing hemodialysis and his last session was yesterday. His chest x-ray still showing some left-sided pleural effusion and mild pulmonary vascular congestion. Is receiving enteral feeding for nutritional support via active and the patient is on Nepro. Antibiotic coverage includes IV cefepime based on a previous MSSA and Serratia cultured from his sputum. Blood pressures under good control for now on various antihypertensive medication which includes a combination of losartan, labetalol, clonidine and hydralazine and Norvasc. Objective - Vital Signs Vital signs: Vital Signs Temp 98.3 F 03/06/18 12:00 Pulse 66 03/06/18 12:51 Resp 18 03/06/18 12:00 BP 141/80 03/06/18 10:30 Pulse Ox 96 03/06/18 12:00 Intake & Output 03/05/18 03/06/18 03/06/18 18:59 06:59 18:59 Intake Total 521 975 423 Output Total 350 210 195 Balance 171 765 228 Weight 77.2 kg 77.2 kg Intake: IV 399 353 138 Cefepime 1 gm In Sodium 50 Chloride 0.9% 50 ml @ 100 mls/hr IVPB DAILY@1700 [facility] Rx#:[id number] NS 260 220 120 Pressure bag 39 33 18 Valproate Sodium 750 mg 100 50 In Sodium Chloride 0.9% 50 ml @ 50 mls/hr IVPB TID [facility] Rx#:[id number] Tube Feeding 42 462 210 Other 80 160 75 Output: Urine 350 210 195 Other: Voiding Method Indwelling Catheter Indwelling Catheter Indwelling Catheter # Voids 20 20 ABP, PAP, CO, CI - Last Documented Arterial Blood Pressure 123/54 - Exam Gen. appearance the patient is a calm and comfortable individual resting comfortably in bed. He is unresponsive not following any verbal commands HEENT examination is grossly unremarkable. Mucous membranes are moist. No oral lesions. Neck supple. Full range of motion. No adenopathy thyromegaly or neck vein distention. A midline tracheostomy is noted. The patient has a Shiley tracheostomy tube in place #8. Cardiovascular examination reveals regular rhythm rate. S1-S2 normal. No S3 or S4. Lungs reveal mostly clear breath sounds. Her sounds are equal bilaterally. There are a few scattered rhonchi. No wheezes or crackles. The patient is on a trach collar for now. Abdomen soft bowel sounds are heard. No masses or tenderness. PEG tube is noted. Tube feedings with Nepro at a rate of 42 ML per hour, which is goal. Extremities are intact. No cyanosis clubbing or edema. The patient has a below -knee and position of the right lower extremity. Left leg is within normal limits. Skin is without rash or lesion. Neurologic unresponsive and deeply comatose. Pupils are 3 mm in size and they' re reactive to light. No nystagmus. No gag. Weak cough is present. No facial asymmetry. Unresponsive to deep painful stimulation. Flaccid without hyperreflexia and the patient does not have any Babinski in the left lower extremity. No clonus. No seizure activity. There is no change in his neurologic status and function on today's evaluation compared to yesterday. He remains deeply comatose without any response to stimulation. - Labs CBC & Chem 7: 03/06/18 04:15 03/06/18 04:15 Labs: Abnormal Lab Results - Last 24 Hours (Table) 03/05/18 03/05/18 03/06/18 Range/Units 15:47 17:55 00:07 RBC (4.30-5.90) m/uL Hgb (13.0-17.5) gm/dL Hct (39.0-53.0) % Sodium (137-145) mmol/L BUN (9-20) mg/dL Creatinine (0.66-1.25) mg/dL Glucose (74-99) mg/dL POC Glucose (mg/dL) 131 H 126 H (75-99) mg/dL Calcium (8.4-10.2) mg/dL Total Protein (6.3-8.2) g/dL Albumin (3.5-5.0) g/dL Hep Bs Antigen Reactive H (Non-Reactive) 03/06/18 03/06/18 03/06/18 Range/Units 04:15 04:15 04:15 RBC 2.75 L (4.30-5.90) m/uL Hgb 8.0 L (13.0-17.5) gm/dL Hct 25.2 L (39.0-53.0) % Sodium 136 L (137-145) mmol/L BUN 43 H (9-20) mg/dL Creatinine 3.17 H (0.66-1.25) mg/dL Glucose 217 H (74-99) mg/dL POC Glucose (mg/dL) 229 H (75-99) mg/dL Calcium 8.2 L (8.4-10.2) mg/dL Total Protein 6.2 L (6.3-8.2) g/dL Albumin 2.7 L (3.5-5.0) g/dL Hep Bs Antigen (Non-Reactive) 03/06/18 03/06/18 Range/Units 08:00 11:54 RBC (4.30-5.90) m/uL Hgb (13.0-17.5) gm/dL Hct (39.0-53.0) % Sodium (137-145) mmol/L BUN (9-20) mg/dL Creatinine (0.66-1.25) mg/dL Glucose (74-99) mg/dL POC Glucose (mg/dL) 214 H 236 H (75-99) mg/dL Calcium (8.4-10.2) mg/dL Total Protein (6.3-8.2) g/dL Albumin (3.5-5.0) g/dL Hep Bs Antigen (Non-Reactive) Assessment and Plan Plan: 1 Acute hypoxic respiratory failure due to combination of pneumonia and fluid overload/pleural effusion. The patient is post tracheostomy tube insertion and the patient has a trach collar 30% FiO2 and today's chest x-ray shows a small left-sided pleural effusion and the patient's volume status is improved and he remains on IV cefepime regarding potential pneumonia with Serratia/MSSA. No significant respiratory distress at this point in time.. 2 respiratory failure, acute requiring Intubation with mechanical ventilation on February 20 for respiratory failure, currently on a trach collar with 30% FiO2 3 Profound hypoglycemia on presentation, with a possibility the of a low blood sugar/hypoglycemic FEEDER/FOLDER injury and secondary metabolic encephalopathy, as the patient remains comatose and the patient is not showing any signs of recovery. 4 Serratia marcescens and oxacillin sensitive staph aureus tracheobronchitis/ bronchopneumonia, currently on IV cefepime 5 anoxic encephalopathy secondary to prolonged hypoglycemia. There is no improvement in the mentation over the past week and the patient had a repeat CAT scan of the brain and EEG indicating advanced encephalopathy. 6 Acute kidney injury with ATN, on top of chronic stage 4-5 chronic kidney disease. The patient is currently on hemodialysis 7 History of chronic anemia 8 COPD 9 Diabetes mellitus with diabetic neuropathy and nephropathy. 10 History of hepatitis C infection 11 History of chronic liver disease 12 History of gout 13 History of deep venous thrombosis 14 History of chronic back pain 15 Remote history of IV drug abuse 16 History of hypertensive urgency, current blood pressure is under poor control PLAN I had a lengthy discussion with the patient's sister who arrives from YESTERDAY. I EXPLAINED TO HER THE SITUATION. UNFORTUNATELY WE HAVE NOT SEEN ANY IMPROVEMENT IN HIS MENTAL STATUS . The workup for secondary causes for altered mentation and diminished level of consciousness was essentially negative. I suspect that the patient had prolonged hypoglycemic events underlying this significant impairment and mentation and comatose state. We collectively decided to continue monitoring him for another week or so and if no improvement will make further advice regarding treatment care with a possibility of comfort care measures if there is no improvement. We'll continue to follow the patient was moved out to a medical floor for now.
--- NOTE | 2018-03-06 15:55 | PN ---
PROGRESS NOTE DATE OF SERVICE: 03/06/2018. REASON FOR FOLLOWUP: MSSA Serratia Marcescens pneumonia. INTERVAL HISTORY: The patient is currently afebrile. He is hemodynamically stable. His mentation remains to be an issue as he has not been responding appropriately to the nursing staff or the family. Tolerating his tube feeds. No diarrhea has been noticed. EXAMINATION: Blood pressure is 123/54 with a pulse of 67, temperature 98.3. He is 96% on trach collar. General description is an elderly male lying in bed in no distress. Respiratory system unlabored breathing with decreased breath sounds at the bases. No wheeze. Heart S1, S2. Regular rate and rhythm. Abdomen soft. No tenderness. LABS: Hemoglobin 8/8.5, BUN of 43, creatinine was 3.17. DIAGNOSTIC IMPRESSION AND PLAN: Patient MSSA and Serratia marcescens pneumonia. Currently covered with cefepime. Plan for about 7-10 days of antibiotic to finish course of therapy. Continue supportive care. MMODL / IJN: [id number] /
[2018-03-06 16:25] LABS: Glucose,Whole Blood 258 mg/dL (75-99)
[2018-03-06] MEDS: CEFEPIME 1 GM in SODIUM CHLORIDE 0.9% 50 ML IVPB SCH (17:54)
--- NOTE | 2018-03-06 18:26 | P.PN ---
Subjective Progress Note Date: 03/06/18 Progress note being dictated for Dr. Coates. Interval history:Patient is a 67-year-old -[place] male who is being followed by the neurology service for possible seizure. Patient was brought to [facility] emergency room with shortness of breath. He was found to have significant pulmonary edema. Patient does have stage IV chronic kidney disease. Patient was being treated in the emergency room when one of the nurses noted patient to be unresponsive. Patient had questionable jerking activity. Patient had significant hypoglycemia in the 20s. He was given D50, intubated and sedated. Patient is currently in the ICU. Computed tomography scan of the brain was done which showed no acute abnormality. Computed tomography scan did show evidence of mild generalized atrophy. Patient was noted to have some rhythmic jerking. Patient was taken off propofol and had an EEG done. EEG showed generalized slowing of the background rhythm. EEG also showed significant triphasic waves which is commonly seen in hepatic pathology. Myoclonic activity was described. Patient was started on Depakote 500 mg every 12 hours IV. Staff reports no further jerking movements since starting Depakote. Patient remains sedated with propofol and on mechanical ventilation. acute kidney injury on chronic kidney disease. Patient has chronic kidney disease stage IV secondary to biopsy-proven diabetic kidney disease with severe chronicity. His baseline creatinine has been in the range of 4-5. Creatinine was 7.65 on admission 02/23/2018 this is my first day taking care of the pt , pt is still on vent , he has been off sedation , however he is still not waking up as expected . pt could have metabolic encephalopathy , vs other . pt with acute on chronic Kidney disease stage IV. nephrology are following the case .Creatinine was 7.65 on admission and is 5.99 today. pt is been seen by neurology who recommended to repeat the EEG and result is pending.pt had subtherapeutic level and extra doses were provided for him yesterday EEG from 02/21: abnormal with significant triphasic waves which is commonly seen in hepatic encephalopahty pt still does not respond to pain stimuli. despite been off sedation since this morning. pupils are equal and reactive to light, meningeal signs were absent when i examined the pt this morning pt has h/o Hep C and B , we will check ammonia level and other work up like B12 ,thyroid function test, syphlis screen ,repeat CT of the head ,with neurology follow up. no fever , no leukocytosis 02/24/2018 no change from yesterday in his mental status from the first time a saw her , still unresponsive , neurologist team is following the pt and recommended repeat EEG. critical care input is appreciated . ammonia level and TSH were negative , repeat CT head is negative for acute process as well 02/25/2018 Patient remains unresponsive as before. Repeat EEG showing moderate encephalopathy, significant triphasic waves consistent with hepatic disease. Occasional sharp wave consistent with due to seizure threshold. But no generalized epileptiform discharge. Patient is a plan to have trach placed on the surgical site. As well as dialysis catheter for dialysis. Patient has Delcid catheter with 40 mL in the bag. There is purulent discharge from the penis. Discussed with staff. Check culture for the discharge, change. AND CHECK BLADDER SCAN 02/26/2018 Patient remains unresponsive, the same. Patient had a dialysis catheter placed. Than his going for hemodialysis currently. Patient has been evaluated by student services coordinator on their input is appreciated. Patient is planned for going for PEG and tracheostomy possibly tomorrow, as per family wishes. To call care consult is appreciated. He has positive sputum culture was fracture and staphylococcus. urine discharge so there was has been changed. Urine culture is pending. We'll consult infectious diseases specialist. Patient with mild leukocytosis 02/27/2018 No improvement in the patient mental status, he remains unresponsive and intubated. Went for dialysis yesterday and today. And PEG tube with check estimated are planned for the patient's in 1 or 2 days. Prognosis remains very poor. The sputum culture is growing Serratia and staph aureus. ID consult is appreciated and patient was started on cefepime. Also patient got IV vancomycin doses . Pulmonary/critical care input is appreciated. Hemoglobin at 7.1. No leukocytosis. He had fever yesterday at 100.2 02/28/2018 pt is unresponsive, intubated , he is undergoing hemodialysis , and he is on antibiotic , he is responding a little bit to suctioning his mouth but only minimally , prognosis remains poor and guarded. pt had PEG and treacheostomy, he remains on cefepime per ID recommendation . pt has Serratia marcescens and staph aureus. while his penile c/s showing many gr-ve bacilli (areobic and unaerobic) and gram positive cocci (unaerobic) 03/03/2018 Patient is unresponsive, has tracheostomy and PEG tube. His undergoing hemodialysis. He is on antibiotics for infection his respiratory and urinary systems. Patient is smoking a grimace to painful stimuli but no more more than that. Continue with supportive care. Prognosis remains very poor 03/04/2018 No change in mental status of the patient, he remains unresponsive. Status post tracheostomy and PEG tube insertion. Continue with hemo-dialysis. And nephrology team are following the patient Continue with antibiotic. Continue with valproate. Critical care/pulmonary team evaluation and follow-up is appreciated. He is off mechanical ventilation currently and continue with trach collar. Continue with Protonix for GI prophylaxis. Patient has some grimace to painful stimuli, however unresponsive to verbal or tactile stimuli. Neurological evaluation is recommended with some workup like EKG and CAT scan of the brain Review of system: N/a Medication with dosages were reviewed including Tylenol 325 mg, Monica up 0.5-3 mg. Norvasc 10 mg. Lipitor 10 mg. Calcium acetate 667 mg. Ceftriaxone 1000 mg. Chlorhexidine. Clonidine 0.3 mg patch. Lasix 80 mg. Neurontin 100 mg. Heparin 5000 unit. Hydralazine 40 mg. NovoLog sliding scale. Labetalol 400 mg. Narcan 0.2 mg. protonix 40 mg. propofol on hold. sodium bicarb 650 mg. flomax 0.4 mg. thiamine 100 mg. valproic acid 750 mg. 03/05/[address] reporting atrophy. Positive cough with purulent yellow secretions.Gag response absent. Tolerating tube feeds at goal with minimal to no residuals. Sputum cultures reporting Serratia marcescens, MSSA. Afebrile. Maintained on cefepime as per ID. Spontaneously opens eyes, did not witness any movement-flaccid. Not communicating, and does not follow commands. Hypertensive, ARB resumed.Scheduled for hemodialysis today. Repeat EEG yesterday, reported slowing, consistent with mild encephalopathy without epileptiform discharges seen. No seizure activity reported. Chest x-ray reporting volume overload, CHF, uremia, basilar effusions, atelectasis, maintained on IV Lasix. Continues on 30% FiO2 trach collar. 03/06/2018 neurologic condition unchanged. Unresponsive to noxious stimuli. Spontaneously opens eyes, without tracking, does not follow commands. Maintained on trach collar. Positive cough, response. tolerating tube feeds at cough. maintained on iv antibiotics as per infectious disease. Chest x-ray reporting mild pulmonary vascular congestion, left-sided pleural effusion. Lengthy discussion between pulmonary/social science instructor and family, Dr. Coates and family via phone regarding poor prognosis, given no improvement in mental status. At this time family wishes to maintain full code, discussing no CODE STATUS among themselves. Comfort care/hospice options also discussed. Objective - Vital Signs Vital signs: Vital Signs Temp 98.3 F 03/06/18 12:00 Pulse 78 03/06/18 16:34 Resp 12 03/06/18 16:00 BP 133/75 03/06/18 16:00 Pulse Ox 97 03/06/18 16:00 Intake & Output 03/05/18 03/06/18 03/06/18 18:59 06:59 18:59 Intake Total 521 975 824 Output Total 350 210 245 Balance 171 765 579 Weight 77.2 kg 77.2 kg Intake: IV 399 353 161 Cefepime 1 gm In Sodium 50 Chloride 0.9% 50 ml @ 100 mls/hr IVPB DAILY@1700 RAINE Rx#:[id number] NS 260 220 140 Pressure bag 39 33 21 Valproate Sodium 750 mg 100 50 In Sodium Chloride 0.9% 50 ml @ 50 mls/hr IVPB TID RAINE Rx#:[id number] Tube Feeding 42 462 588 Other 80 160 75 Output: Urine 350 210 245 Other: Voiding Method Indwelling Catheter Indwelling Catheter Indwelling Catheter # Voids 20 20 ABP, PAP, CO, CI - Last Documented Arterial Blood Pressure 135/56 - Exam -GENERAL: The patient is sitting up in bed, opens eyes spontaneously, no tracking HEENT: Pupils are 3 mm ,round,equal and sluggish reacting to light. No scleral icterus. No conjunctival pallor. Normocephalic, atraumatic. Tracheostomy tube present. CARDIOVASCULAR: S1 and S2 present. No murmurs, rubs, or gallops. -PULMONARY: Unlabored, clear to auscultation, no wheezing, no crackles. ABDOMEN: Soft, nontender, nondistended, normoactive bowel sounds. No palpable organomegaly. PEG tube present MUSCULOSKELETAL: No joint swelling or deformity. EXTREMITIES: No cyanosis, clubbing, or pedal edema. -s/p right BKA -NEUROLOGICAL: unresponsive to verbal or painful stinuli, opens eyes spontaneously, not to commands. SKIN: No rashes. Microbiology 03/01/18 15:15 Catheter Tip Catheter Tip Culture - Final 02/24/18 05:25 Blood Blood Culture - Final No Growth after 144 hours 02/24/18 05:07 Blood Blood Culture - Final No Growth after 144 hours 02/24/18 03:05 Penis Anaerobic Culture - Final Anaerobic Gm Negative Bacilli Anaerobic Gm Negative Bacilli#2 Anaerobic Gram Positive Cocci 02/19/18 23:29 Blood Blood Culture - Final No Growth after 144 hours 02/24/18 05:35 Sputum Gram Stain - Final 02/24/18 05:35 Sputum Sputum Culture - Final Serratia marcescens Staphylococcus aureus 02/24/18 06:07 Urine,Catheterized Urine Culture - Final 02/24/18 03:05 Catheter Site Gram Stain - Final 02/24/18 03:05 Catheter Site Wound Culture - Final 02/20/18 07:55 Sputum Gram Stain - Final 02/20/18 07:55 Sputum Sputum Culture - Final 02/20/18 11:00 Urine,Catheterized Urine Culture - Final - Labs CBC & Chem 7: 03/06/18 04:15 03/06/18 04:15 Labs: Abnormal Lab Results - Last 24 Hours (Table) 03/05/18 03/05/18 03/06/18 Range/Units 15:47 17:55 00:07 RBC (4.30-5.90) m/uL Hgb (13.0-17.5) gm/dL Hct (39.0-53.0) % Sodium (137-145) mmol/L BUN (9-20) mg/dL Creatinine (0.66-1.25) mg/dL Glucose (74-99) mg/dL POC Glucose (mg/dL) 131 H 126 H (75-99) mg/dL Calcium (8.4-10.2) mg/dL Total Protein (6.3-8.2) g/dL Albumin (3.5-5.0) g/dL Hep Bs Antigen Reactive H (Non-Reactive) 03/06/18 03/06/18 03/06/18 Range/Units 04:15 04:15 04:15 RBC 2.75 L (4.30-5.90) m/uL Hgb 8.0 L (13.0-17.5) gm/dL Hct 25.2 L (39.0-53.0) % Sodium 136 L (137-145) mmol/L BUN 43 H (9-20) mg/dL Creatinine 3.17 H (0.66-1.25) mg/dL Glucose 217 H (74-99) mg/dL POC Glucose (mg/dL) 229 H (75-99) mg/dL Calcium 8.2 L (8.4-10.2) mg/dL Total Protein 6.2 L (6.3-8.2) g/dL Albumin 2.7 L (3.5-5.0) g/dL Hep Bs Antigen (Non-Reactive) 03/06/18 03/06/18 03/06/18 Range/Units 08:00 11:54 16:22 RBC (4.30-5.90) m/uL Hgb (13.0-17.5) gm/dL Hct (39.0-53.0) % Sodium (137-145) mmol/L BUN (9-20) mg/dL Creatinine (0.66-1.25) mg/dL Glucose (74-99) mg/dL POC Glucose (mg/dL) 214 H 236 H 258 H (75-99) mg/dL Calcium (8.4-10.2) mg/dL Total Protein (6.3-8.2) g/dL Albumin (3.5-5.0) g/dL Hep Bs Antigen (Non-Reactive) Assessment and Plan Assessment: -Acute hypoxic respiratory failure: Secondary to congestive heart failure chronic diastolic dysfunction with acute exacerbation patient , with other causes occluded. He was started on high-dose of Lasix. Status post mechanical ventilation dependent , currently trach collared. -Episode of seizure believed to be secondary to profound hypoglycemia on admission and encephalopathy EEG showed diffuse slowing. patient has metabolic and toxic encephalopathy -acute on chronic renal failure , receiving hemodialysis -metabolic encephalopathy , possibly secondary to all above -Sepsis with possible tracheobronchitis, positive sputum culture. 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 Hyperlipidemia -Purulent discharge from the penile orifice. Culture: Many gram-negative and positive bacteria, Plan: Continue on current medication regime ,monitoring and symptomatic treatment. Patient has been cleared by social science instructor to transfer out to ICU to [facility]. Antibiotics as per infectious disease. Hemodialysis tomorrow. As mentioned above in depth discussions have occurred with family regarding poor prognosis. At this time patient is to remain a full code per family. Continue supportive care. The impression and plan of care has been dictated as directed. : I performed a history and examination of this patient, discussed the same with the dictator. I agree with the dictator's note ,documented as a scribe. Any additional findings or plans will be noted.
[2018-03-06 21:12] LABS: Glucose,Whole Blood 201 mg/dL (75-99)
[2018-03-06 23:53] LABS: Glucose,Whole Blood 233 mg/dL (75-99)
[2018-03-06] MEDS: ATORVASTATIN 10 MG TAB PO SCH (23:58)
[2018-03-07 04:04] LABS: Glucose,Whole Blood 197 mg/dL (75-99)
[2018-03-07] MEDS: INSULIN ASPART 100 UNIT/ML 1 ML 10 ML VIAL SQ SCH ×5 (04:30→22:01)
[2018-03-07 07:58] LABS: Albumin 2.5 g/dL (3.5-5.0); Calcium 8.2 mg/dL (8.4-10.2); Magnesium 2.4 mg/dL (1.6-2.3); Potassium 4.3 mmol/L (3.5-5.1); Total Bilirubin 0.3 mg/dL (0.2-1.3)
[2018-03-07 08:13] LABS: HCT 24.1 % (39.0-53.0); HGB 7.6 gm/dL (13.0-17.5); Hypochromasia Slight; MCH 29.3 pg (25.0-35.0); MCHC 31.7 g/dL (31.0-37.0); MCV 92.7 fL (80.0-100.0); Mean Platelet Volume 7.1; Platelet Count 294 k/uL (150-450); RDW 14.5 % (11.5-15.5); WBC 7.5 k/uL (3.8-10.6)
[2018-03-07] MEDS: IPRATROPIUM-ALBUTEROL 3 ML NEB INHALATION SCH ×4 (08:39→21:01)
--- NOTE | 2018-03-07 09:22 | XR ---
EXAMINATION TYPE: XR chest 1V portable DATE OF EXAM: 03/07/2018 COMPARISON: Prior chest x-ray 03/06/2018 HISTORY: Volume overload, difficulty breathing TECHNIQUE: Single frontal view of the chest is obtained. FINDINGS: Patient is rotated. Tracheostomy tube and dialysis catheter are stable. Heart remains enla rged. Basilar increased density persists, the left hemidiaphragm is obscured. No evident pneumothorax . Central vascularity and interstitium are prominent. There are overlying cardiac leads. IMPRESSION: Correlate for congestive heart failure, volume overload, there are likely changes of bas ilar atelectasis or possibly edema and associated effusion, pneumonia not excluded. Follow-up recomme nded.
[2018-03-07 09:26] LABS: Glucose,Whole Blood 273 mg/dL (75-99)
[2018-03-07] MEDS: CHLORHEXIDINE GLUCONATE 15 ML CUP MUCOUS MEM SCH ×2 (10:38→23:15)
[2018-03-07] MEDS: HEPARIN SODIUM,PORCINE 5,000 UNIT/ML 1 ML VIAL SQ SCH ×4 (10:38→23:20)
[2018-03-07] MEDS: FUROSEMIDE 10 MG/ML 10 ML VIAL IV SCH ×2 (10:39→23:18)
[2018-03-07] MEDS: THIAMINE 100 MG/ML 2 ML VIAL IVP SCH (10:39)
[2018-03-07] MEDS: LABETALOL 200 MG TAB PO SCH ×3 (10:40→23:19)
[2018-03-07] MEDS: hydrALAZINE HCL 50 MG TAB PO SCH ×3 (10:40→23:19)
[2018-03-07] MEDS: TAMSULOSIN 0.4 MG CAP.ER.24H PO SCH (10:40)
[2018-03-07] MEDS: LOSARTAN 50 MG TAB PO SCH (10:40)
[2018-03-07] MEDS: PANTOPRAZOLE 40 MG/10 ML VIAL IVP SCH (10:40)
[2018-03-07] MEDS: amLODIPine 10 MG TAB PO SCH (10:41)
[2018-03-07] MEDS: cloNIDine HCL 0.2 MG TAB PO SCH ×3 (10:41→23:19)
[2018-03-07] MEDS: GABAPENTIN 100 MG CAP PO SCH ×3 (10:41→23:16)
[2018-03-07] MEDS: VALPROATE SODIUM 750 MG in SODIUM CHLORIDE 0.9% 50 ML IVPB SCH ×3 (11:05→23:19)
[2018-03-07 11:33] LABS: Glucose,Whole Blood 196 mg/dL (75-99)
--- NOTE | 2018-03-07 14:00 | P.PN ---
Subjective Progress Note Date: 03/07/18 67-year-old -[place] male patient was currently being seen in follow-up in the intensive care units. The patient has multiple medical problems and comorbidities. The most active problem for now as his diminished level of consciousness and encephalopathy. Neurologist on the case. The patient is considered to have metabolic encephalopathy. The patient received 4 sessions of hemodialysis and there is no significant improvement in his mental status. In fact today's quite unresponsive and is not responding to any painful or verbal stimulation. No seizure activity has been noted. Pupils are sluggishly reactive to light. He is being seen by neurology. CAT scan of the brain was done that showed no abnormalities. The patient had EGD that showed no evidence of any seizure activity is consistent with encephalopathy. On today's evaluation the patient was seen to be in a mechanical ventilator. He was in a tidal volume of 500 and FiO2 of 30% and a PEEP of 5 and the respiratory rate of 14. I saw the patient was quite comfortable with his breathing and a chest x- ray showed negative abnormalities other than some small bilateral pleural effusion more so on the left. Based on that, I put the patient on a pressure support of 5 and a PEEP of 5 and the patient was able to tolerate well with tidal volumes in the 600s range and a low respiratory rate. At that point I made recommendations to discontinue the mechanical ventilator this patient knowing that he should be able to protect his airways and he should be able to breathe spontaneously by himself without the help of a mechanical ventilator. The patient will be receiving his dialysis today. The patient has had no fever. His white cell count is at 5.8. His hemoglobin is at 7.4. Renal function is impaired and the patient has stage IV kidney disease at baseline and patient's current creatinine is at 5.9 with a BUN of 103. No hyperkalemia. Blood gases from today showed a pH of 7.4 with a pCO2 of 42 and pO2 of 105 and this was done and FiO2 of 30% while the patient being an assist-control mode of ventilation. His sputum is showing Serratia and staph aureus. The staph aureus is an MSSA and based on this IV was evaluated the patient and the patient was placed on IV cefepime. Blood pressure remains elevated. I made some adjustments and suggested switching around his blood pressure medication to achieve a blood pressure control which is tighter than the one that we have right now. He is afebrile. On 03/04/2018, Mr. damon is being seen for a follow-up. The patient remains completely unresponsive. I try to stimulate him today with deep painful stimulation and I do not see any response and he was not withdrawing to painful stimulation. The patient does not communicate. He does not maintain eye contact. Pupils are round 3 mm in size and they're reactive to light. No gag. He does have some limited cough. I was able to get him off the mechanical ventilator yesterday today's on a trach collar. Is able to breathe comfortably without any major difficulties. He underwent dialysis yesterday without a total of 2.8 L of fluid was removed. Nevertheless, he remains encephalopathic and unresponsive and the patient did not show any improvement in his mental status despite ongoing dialysis. I think neurology should come back and give us a final prognosis on this patient knowing that there may be possible height hypoglycemic brain injury and the patient could be deeply comatose due to prolonged hypoglycemia this could've happened at time of this admission. No fever. No chills. No significant rest or secretions. Chest x-ray findings are showing some mild component of CHF. The patient is tolerating enteral feeding for nutritional support. He is on IV cefepime regarding sedation staph aureus/MSSA in the sputum. Hemodynamically stable. No other significant events over the past 24 hours. On 03/05/2018 patient seen in follow-up in the intensive care unit. He remains unresponsive, per family, he occasionally opens his left eye, but he does not follow command. He remains on trach collar with FiO2 of 30%. This morning patient is not attempting to open his eyes, moved his head slightly to verbal and tactile stimulation. Pupils are 3 mm in size, sluggishly reactive to light. No gag or cough. Per family patient was moving his legs yesterday. Patient does not seem to be having any difficulty breathing. Did not have any dialysis yesterday, he had dialysis the day before yesterday, would removal of 2800 mL of fluid. He is scheduled for dialysis again today. His labs have been reviewed, WBC is 7.7, hemoglobin is 7.7, sodium is 140, potassium 3.4, BUN is 74, creatinine is 4.74. Patient sputum culture was positive for Serratia marcescens, and MSSA. Patient is currently on cefepime, no ongoing fever or chills. Remains on IV Lasix at 80 mg every 12 hours, and patient is producing urine in the order of 10 to 40 mL per hours. Lung sounds are clear, diminished at the bases. No significant secretions from the trach. He had a repeat EEG yesterday, which showed generalized slowing of the background rhythm in the theta range. Consistent with mild encephalopathy, no epileptiform discharges were seen. Patient has a PEG tube in place, he is on tube feedings with Nepro, at a rate of 42 ML per hour, which is goal. On 03/06/2018 the patient remains in intensive care unit. The active issue for now is his unresponsiveness and comatose state. I'm unable to get any meaningful response from this patient. He does not follow commands. He does not track. He does not withdraw to any painful stimulation. At times he spontaneously opens up his eyes. No seizure activity has been noted. Pupils around 3-4 mm in size sluggishly reactive to light. He does have a positive cough. EEG showed diffuse slowing. There was no evidence of any seizure activity. CAT scan of the brain showed no acute process. Serum ammonia level was less than 9. The patient has undergone routine dialysis without any improvement in his mental status is in his such uremic encephalopathy is felt to be much less likely. The patient is currently on a trach collar. His tracheostomy tube is in place. No signs of any respiratory distress. No excessive oral tracheal secretions. No fever. No chills. He is undergoing hemodialysis and his last session was yesterday. His chest x-ray still showing some left-sided pleural effusion and mild pulmonary vascular congestion. Is receiving enteral feeding for nutritional support via active and the patient is on Nepro. Antibiotic coverage includes IV cefepime based on a previous MSSA and Serratia cultured from his sputum. Blood pressures under good control for now on various antihypertensive medication which includes a combination of losartan, labetalol, clonidine and hydralazine and Norvasc. On 03/07/2019, the patient clinically unchanged. Completely unresponsive to verbal stimulation and painful stimulation. Laying comfortably in bed. No signs of any respiratory distress. Undergoing dialysis. He has a tracheostomy tube in place. Limited amount of rest or secretions are being suctioned out on a regular basis. No fever. No chills. No night sweats. No other complaints otherwise for now. Tolerating his tube feeds. We are awaiting further discussions extensive seen neurology and the family as far as long-term treatment goals Objective - Vital Signs Vital signs: Vital Signs Temp 100.2 F H 03/07/18 12:22 Pulse 69 03/07/18 12:22 Resp 16 03/07/18 12:22 BP 118/70 03/07/18 12:22 Pulse Ox 99 03/07/18 12:22 Intake & Output 03/06/18 03/07/18 03/07/18 18:59 06:59 18:59 Intake Total 1160 1108 Output Total 245 400 Balance 915 708 Weight 77.2 kg 78 kg 78 kg Intake: IV 161 100 NS 140 Pressure bag 21 Valproate Sodium 750 mg 100 In Sodium Chloride 0.9% 50 ml @ 50 mls/hr IVPB TID [facility] Rx#:[id number] Tube Feeding 924 1008 Other 75 Output: Urine 245 400 Uretheral (Delcid) 400 Other: Voiding Method Indwelling Catheter Indwelling Catheter # Voids 20 ABP, PAP, CO, CI - Last Documented Arterial Blood Pressure 135/56 - Exam Gen. appearance the patient is a calm and comfortable individual resting comfortably in bed. He is unresponsive not following any verbal commands HEENT examination is grossly unremarkable. Mucous membranes are moist. No oral lesions. Neck supple. Full range of motion. No adenopathy thyromegaly or neck vein distention. A midline tracheostomy is noted. The patient has a Shiley tracheostomy tube in place #8. Cardiovascular examination reveals regular rhythm rate. S1-S2 normal. No S3 or S4. Lungs reveal mostly clear breath sounds. Her sounds are equal bilaterally. There are a few scattered rhonchi. No wheezes or crackles. The patient is on a trach collar for now. Abdomen soft bowel sounds are heard. No masses or tenderness. PEG tube is noted. Tube feedings with Nepro at a rate of 42 ML per hour, which is goal. Extremities are intact. No cyanosis clubbing or edema. The patient has a below -knee and position of the right lower extremity. Left leg is within normal limits. Skin is without rash or lesion. Neurologic unresponsive and deeply comatose. Pupils are 3 mm in size and they' re reactive to light. No nystagmus. No gag. Weak cough is present. No facial asymmetry. Unresponsive to deep painful stimulation. Flaccid without hyperreflexia and the patient does not have any Babinski in the left lower extremity. No clonus. No seizure activity. There is no change in his neurologic status and function on today's evaluation compared to yesterday. He remains deeply comatose without any response to stimulation. - Labs CBC & Chem 7: 03/07/18 07:17 03/07/18 07:17 Labs: Abnormal Lab Results - Last 24 Hours (Table) 03/06/18 03/06/18 03/06/18 Range/Units 16:22 21:00 23:52 RBC (4.30-5.90) m/uL Hgb (13.0-17.5) gm/dL Hct (39.0-53.0) % BUN (9-20) mg/dL Creatinine (0.66-1.25) mg/dL Glucose (74-99) mg/dL POC Glucose (mg/dL) 258 H 201 H 233 H (75-99) mg/dL Calcium (8.4-10.2) mg/dL Magnesium (1.6-2.3) mg/dL ALT (21-72) U/L Total Protein (6.3-8.2) g/dL Albumin (3.5-5.0) g/dL 03/07/18 03/07/18 03/07/18 Range/Units 04:02 07:17 07:17 RBC 2.60 L (4.30-5.90) m/uL Hgb 7.6 L (13.0-17.5) gm/dL Hct 24.1 L (39.0-53.0) % BUN 60 H (9-20) mg/dL Creatinine 4.21 H (0.66-1.25) mg/dL Glucose 244 H (74-99) mg/dL POC Glucose (mg/dL) 197 H (75-99) mg/dL Calcium 8.2 L (8.4-10.2) mg/dL Magnesium 2.4 H (1.6-2.3) mg/dL ALT 17 L (21-72) U/L Total Protein 6.0 L (6.3-8.2) g/dL Albumin 2.5 L (3.5-5.0) g/dL 03/07/18 03/07/18 Range/Units 09:25 11:32 RBC (4.30-5.90) m/uL Hgb (13.0-17.5) gm/dL Hct (39.0-53.0) % BUN (9-20) mg/dL Creatinine (0.66-1.25) mg/dL Glucose (74-99) mg/dL POC Glucose (mg/dL) 273 H 196 H (75-99) mg/dL Calcium (8.4-10.2) mg/dL Magnesium (1.6-2.3) mg/dL ALT (21-72) U/L Total Protein (6.3-8.2) g/dL Albumin (3.5-5.0) g/dL Assessment and Plan Plan: 1 Acute hypoxic respiratory failure due to combination of pneumonia and fluid overload/pleural effusion. The patient is post tracheostomy tube insertion and the patient has a trach collar 30% FiO2 and today's chest x-ray shows a small left-sided pleural effusion and the patient's volume status is improved and he remains on IV cefepime regarding potential pneumonia with Serratia/MSSA. No significant respiratory distress at this point in time.. The patient has limited amount of rest or secretions and he remains, comfortable without any signs of respiratory distress. He got moved out of the intensive care unit yesterday and the patient is currently on a medical floor. 2 unresponsive/comatose state, likely secondary to anoxic encephalopathy related to prolonged hypoglycemia. Neurologic functions remain unchanged compared to yesterday and the patient remains unresponsive does not follow any commands. 3 Profound hypoglycemia on presentation, with a possibility the of a low blood sugar/hypoglycemic OR ASSISTANT injury and secondary metabolic encephalopathy, as the patient remains comatose and the patient is not showing any signs of recovery. 4 Serratia marcescens and oxacillin sensitive staph aureus tracheobronchitis/ bronchopneumonia, currently on IV cefepime 5 anoxic encephalopathy secondary to prolonged hypoglycemia. There is no improvement in the mentation over the past week and the patient had a repeat CAT scan of the brain and EEG indicating advanced encephalopathy. 6 Acute kidney injury with ATN, on top of chronic stage 4-5 chronic kidney disease. The patient is currently on hemodialysis 7 History of chronic anemia 8 COPD 9 Diabetes mellitus with diabetic neuropathy and nephropathy. 10 History of hepatitis C infection 11 History of chronic liver disease 12 History of gout 13 History of deep venous thrombosis 14 History of chronic back pain 15 Remote history of IV drug abuse 16 History of hypertensive urgency, current blood pressure is under poor control PLAN Overall pulmonary status is stable. Dialysis as suggested by nephrology. Fluid. Patient is on a 30% trach collar and he has no signs of any respiratory distress. The patient continues to be managed conservatively. We are monitoring his neurologic function. Would awaiting further recommendations from neurology. I think long-term prognosis extremely poor as the patient remains unresponsive and comatose probably related to prolonged hypoglycemic events that occurred at time of admission. Prognosis poor.
--- NOTE | 2018-03-07 14:26 | PN ---
PROGRESS NOTE DATE OF SERVICE: 03/07/2018 REASON FOR FOLLOWUP: MSSA and Serratia marcescens pneumonia. INTERVAL HISTORY: The patient is currently afebrile. He was undergoing hemodialysis, tolerating the procedure so far per the biological science technician fish. The patient remains to be normal. Has been tolerating his tube feeds and no diarrhea has been reported. PHYSICAL EXAMINATION: On examination, blood pressure is 118/70 with the pulse of 89, temperature 98. He is 99% on trach collar. General description is an elderly male lying in bed in no distress. RESPIRATORY SYSTEM: Unlabored breathing with decreased breath sounds in the bases. No wheeze. HEART: S1, S2. Regular rate and rhythm. ABDOMEN: Soft, no tenderness. LABS: Hemoglobin 7.5, white count 7.5. BUN of 60, creatinine 4.21. DIAGNOSTIC IMPRESSION AND PLAN: Patient had episode of pneumonia with sputum positive for MSSA and Serratia marcescens. Patient is currently on cefepime to continue to finish 10-day course of therapy. Continue supportive care. MMODL / IJN: [id number] /
[2018-03-07 16:19] LABS: Glucose,Whole Blood 233 mg/dL (75-99)
[2018-03-07] MEDS: CEFEPIME 1 GM in SODIUM CHLORIDE 0.9% 50 ML IVPB SCH (16:29)
[2018-03-07] MEDS: ACETAMINOPHEN TAB 325 MG TAB PO PRN (17:27)
--- NOTE | 2018-03-07 17:32 | PN ---
PROGRESS NOTE Patient is seen for followup for chronic kidney disease and currently end-stage renal disease, hemodialysis dependent. The patient is currently on a trach collar. He is seen on dialysis, is tolerating his treatment well. Blood pressure had been running on the higher side. The patient is awake, however, he has no purposeful movements. Temperature is 100.2 degrees Fahrenheit. Examination of the heart S1, S2. Examination of lungs: Bilateral breath sounds are heard. Abdomen is soft, nontender. Examination lower extremity shows no 1+ edema bilaterally upper and lower extremities. The patient has a right BKA. LAB: Show sodium 137, potassium 4.3, BUN 60, serum creatinine 4.2, hemoglobin 7.6 g/dL. ASSESSMENT: 1. End-stage renal disease, currently on hemodialysis. The patient has good urine output. However, he remains dialysis dependent. We will continue to maintain him on renal replacement therapy until further decision regarding code status is obtained. The patient is currently on a Saturday, Saturday, Saturday schedule. 2. Status post vent dependent respiratory failure. 3. Encephalopathy, most likely secondary to hypoglycemia. 4. Anemia. No active bleeding noted. The patient is maintained on Aranesp. 5. Hypertension, currently much better controlled. PLAN: Continue with current medications. We will maintain dialysis on a Saturday, Saturday, Saturday schedule. MMODL / IJN: [id number] /
--- NOTE | 2018-03-07 19:43 | P.PN ---
Subjective Progress Note Date: 03/07/18 Progress note being dictated for Dr. Beyer. Interval history:Patient is a 67-year-old -[place] male who is being followed by the neurology service for possible seizure. Patient was brought to [facility] emergency room with shortness of breath. He was found to have significant pulmonary edema. Patient does have stage IV chronic kidney disease. Patient was being treated in the emergency room when one of the nurses noted patient to be unresponsive. Patient had questionable jerking activity. Patient had significant hypoglycemia in the 20s. He was given D50, intubated and sedated. Patient is currently in the ICU. Computed tomography scan of the brain was done which showed no acute abnormality. Computed tomography scan did show evidence of mild generalized atrophy. Patient was noted to have some rhythmic jerking. Patient was taken off propofol and had an EEG done. EEG showed generalized slowing of the background rhythm. EEG also showed significant triphasic waves which is commonly seen in hepatic pathology. Myoclonic activity was described. Patient was started on Depakote 500 mg every 12 hours IV. Staff reports no further jerking movements since starting Depakote. Patient remains sedated with propofol and on mechanical ventilation. acute kidney injury on chronic kidney disease. Patient has chronic kidney disease stage IV secondary to biopsy-proven diabetic kidney disease with severe chronicity. His baseline creatinine has been in the range of 4-5. Creatinine was 7.65 on admission 02/23/2018 this is my first day taking care of the pt , pt is still on vent , he has been off sedation , however he is still not waking up as expected . pt could have metabolic encephalopathy , vs other . pt with acute on chronic Kidney disease stage IV. nephrology are following the case .Creatinine was 7.65 on admission and is 5.99 today. pt is been seen by neurology who recommended to repeat the EEG and result is pending.pt had subtherapeutic level and extra doses were provided for him yesterday EEG from 02/21: abnormal with significant triphasic waves which is commonly seen in hepatic encephalopahty pt still does not respond to pain stimuli. despite been off sedation since this morning. pupils are equal and reactive to light, meningeal signs were absent when i examined the pt this morning pt has h/o Hep C and B , we will check ammonia level and other work up like B12 ,thyroid function test, syphlis screen ,repeat CT of the head ,with neurology follow up. no fever , no leukocytosis 02/24/2018 no change from yesterday in his mental status from the first time a saw her , still unresponsive , neurologist team is following the pt and recommended repeat EEG. critical care input is appreciated . ammonia level and TSH were negative , repeat CT head is negative for acute process as well 02/25/2018 Patient remains unresponsive as before. Repeat EEG showing moderate encephalopathy, significant triphasic waves consistent with hepatic disease. Occasional sharp wave consistent with due to seizure threshold. But no generalized epileptiform discharge. Patient is a plan to have trach placed on the surgical site. As well as dialysis catheter for dialysis. Patient has Delcid catheter with 40 mL in the bag. There is purulent discharge from the penis. Discussed with staff. Check culture for the discharge, change. AND CHECK BLADDER SCAN 02/26/2018 Patient remains unresponsive, the same. Patient had a dialysis catheter placed. Than his going for hemodialysis currently. Patient has been evaluated by manager merchandise on their input is appreciated. Patient is planned for going for PEG and tracheostomy possibly tomorrow, as per family wishes. To call care consult is appreciated. He has positive sputum culture was fracture and staphylococcus. urine discharge so there was has been changed. Urine culture is pending. We'll consult infectious diseases specialist. Patient with mild leukocytosis 02/27/2018 No improvement in the patient mental status, he remains unresponsive and intubated. Went for dialysis yesterday and today. And PEG tube with check estimated are planned for the patient's in 1 or 2 days. Prognosis remains very poor. The sputum culture is growing Serratia and staph aureus. ID consult is appreciated and patient was started on cefepime. Also patient got IV vancomycin doses . Pulmonary/critical care input is appreciated. Hemoglobin at 7.1. No leukocytosis. He had fever yesterday at 100.2 02/28/2018 pt is unresponsive, intubated , he is undergoing hemodialysis , and he is on antibiotic , he is responding a little bit to suctioning his mouth but only minimally , prognosis remains poor and guarded. pt had PEG and treacheostomy, he remains on cefepime per ID recommendation . pt has Serratia marcescens and staph aureus. while his penile c/s showing many gr-ve bacilli (areobic and unaerobic) and gram positive cocci (unaerobic) 03/03/2018 Patient is unresponsive, has tracheostomy and PEG tube. His undergoing hemodialysis. He is on antibiotics for infection his respiratory and urinary systems. Patient is smoking a grimace to painful stimuli but no more more than that. Continue with supportive care. Prognosis remains very poor 03/04/2018 No change in mental status of the patient, he remains unresponsive. Status post tracheostomy and PEG tube insertion. Continue with hemo-dialysis. And nephrology team are following the patient Continue with antibiotic. Continue with valproate. Critical care/pulmonary team evaluation and follow-up is appreciated. He is off mechanical ventilation currently and continue with trach collar. Continue with Protonix for GI prophylaxis. Patient has some grimace to painful stimuli, however unresponsive to verbal or tactile stimuli. Neurological evaluation is recommended with some workup like EKG and CAT scan of the brain Review of system: N/a Medication with dosages were reviewed including Tylenol 325 mg, Monica up 0.5-3 mg. Norvasc 10 mg. Lipitor 10 mg. Calcium acetate 667 mg. Ceftriaxone 1000 mg. Chlorhexidine. Clonidine 0.3 mg patch. Lasix 80 mg. Neurontin 100 mg. Heparin 5000 unit. Hydralazine 40 mg. NovoLog sliding scale. Labetalol 400 mg. Narcan 0.2 mg. protonix 40 mg. propofol on hold. sodium bicarb 650 mg. flomax 0.4 mg. thiamine 100 mg. valproic acid 750 mg. 03/05/[address] reporting atrophy. Positive cough with purulent yellow secretions.Gag response absent. Tolerating tube feeds at goal with minimal to no residuals. Sputum cultures reporting Serratia marcescens, MSSA. Afebrile. Maintained on cefepime as per ID. Spontaneously opens eyes, did not witness any movement-flaccid. Not communicating, and does not follow commands. Hypertensive, ARB resumed.Scheduled for hemodialysis today. Repeat EEG yesterday, reported slowing, consistent with mild encephalopathy without epileptiform discharges seen. No seizure activity reported. Chest x-ray reporting volume overload, CHF, uremia, basilar effusions, atelectasis, maintained on IV Lasix. Continues on 30% FiO2 trach collar. 03/06/2018 neurologic condition unchanged. Unresponsive to noxious stimuli. Spontaneously opens eyes, without tracking, does not follow commands. Maintained on trach collar. Positive cough, response. tolerating tube feeds at cough. maintained on iv antibiotics as per infectious disease. Chest x-ray reporting mild pulmonary vascular congestion, left-sided pleural effusion. Lengthy discussion between pulmonary/music box mechanic and family, Dr. Coates and family via phone regarding poor prognosis, given no improvement in mental status. At this time family wishes to maintain full code, discussing no CODE STATUS among themselves. Comfort care/hospice options also discussed. 03/07/2018 maintained on cefepime for sputum with MSSA and Serratia marcescens. Afebrile. Maintained on 30% trach collar, without respiratory distress. Receiving hemodialysis today. Clinical/neurological presentation unchanged- unresponsive. Tolerating tube feeds at goal. Review of systems unable to obtain as patient is unresponsive. Active Medications Acetaminophen (Tylenol Tab) 325 mg PO Q6HR PRN PRN Reason: Fever and/ or Mild Pain Last Admin: 03/07/18 17:27 Dose: 325 mg Albuterol/Ipratropium (Duoneb 0.5 Mg-3 Mg/3 Ml Soln) 3 ml INHALATION RT-Q2H PRN PRN Reason: Shortness Of Breath Or Wheezing Last Admin: 03/07/18 14:28 Dose: 3 ml Albuterol/Ipratropium (Duoneb 0.5 Mg-3 Mg/3 Ml Soln) 3 ml INHALATION RT-QID [facility] Last Admin: 03/07/18 15:00 Dose: Not Given Amlodipine Besylate (Norvasc) 10 mg PO DAILY [facility] Last Admin: 03/07/18 10:41 Dose: 10 mg Atorvastatin Calcium (Lipitor) 10 mg PO HS [facility] Last Admin: 03/06/18 23:58 Dose: 10 mg Chlorhexidine Gluconate (Peridex) 15 ml MUCOUS MEM BID [facility] Last Admin: 03/07/18 10:38 Dose: 15 ml Clonidine (Catapres) 0.2 mg PO TID [facility] Last Admin: 03/07/18 16:36 Dose: 0.2 mg Darbepoetin Rivera (Aranesp) 40 mcg SQ Q7D [facility] Last Admin: 03/02/18 13:23 Dose: 40 mcg Furosemide (Lasix) 80 mg IV Q12H [facility] Last Admin: 03/07/18 10:39 Dose: 80 mg Gabapentin (Neurontin) 100 mg PO TID [facility] Last Admin: 03/07/18 16:36 Dose: 100 mg Heparin Sodium (Porcine) (Heparin) 5,000 unit SQ Q8HR [facility] Last Admin: 03/07/18 16:36 Dose: 5,000 unit Hydralazine HCl (Apresoline) 40 mg IVP Q6HR PRN PRN Reason: Blood Pressure - High Last Admin: 03/03/18 16:55 Dose: 40 mg Hydralazine HCl (Apresoline) 100 mg PO TID [facility] Last Admin: 03/07/18 16:36 Dose: 100 mg Valproic Acid 750 mg/ Sodium (Chloride) 57.5 mls @ 50 mls/hr IVPB TID [facility] Last Admin: 03/07/18 16:37 Dose: 50 mls/hr Cefepime HCl 1 gm/ Sodium (Chloride) 50 mls @ 100 mls/hr IVPB DAILY@1700 [facility] Last Admin: 03/07/18 16:29 Dose: 100 mls/hr Insulin Aspart (Novolog) 0 unit SQ Q4H [facility]; Protocol Last Admin: 03/07/18 16:24 Dose: 3 unit Labetalol HCl (Trandate) 400 mg PO TID [facility] Last Admin: 03/07/18 16:36 Dose: 400 mg Losartan Potassium (Cozaar) 50 mg PO DAILY [facility] Last Admin: 03/07/18 10:40 Dose: 50 mg Miscellaneous Information (Potassium Per Protocol) 1 each MISCELLANE DAILY PRN ; Protocol PRN Reason: Per Protocol Miscellaneous Information (Magnesium Per Protocol) 1 each MISCELLANE DAILY PRN ; Protocol PRN Reason: Per Protocol Naloxone HCl (Narcan) 0.2 mg IV Q2M PRN PRN Reason: Opioid Reversal Pantoprazole Sodium (Protonix) 40 mg IVP DAILY [facility] Last Admin: 03/07/18 10:40 Dose: 40 mg Tamsulosin HCl (Flomax) 0.4 mg PO DAILY [facility] Last Admin: 03/07/18 10:40 Dose: 0.4 mg Thiamine HCl (Vitamin B-1) 100 mg IVP DAILY [facility] Last Admin: 03/07/18 10:39 Dose: 100 mg Objective - Vital Signs Vital signs: Vital Signs Temp 100.2 F H 03/07/18 12:22 Pulse 69 03/07/18 16:00 Resp 16 03/07/18 16:00 BP 118/70 03/07/18 12:22 Pulse Ox 99 03/07/18 12:22 Intake & Output 03/07/18 03/07/18 03/08/18 06:59 18:59 06:59 Intake Total 1108 1344 Output Total 400 2600 Balance 708 -1256 Weight 78 kg 78 kg Intake: IV 100 Valproate Sodium 750 mg 100 In Sodium Chloride 0.9% 50 ml @ 50 mls/hr IVPB TID [facility] Rx#:[id number] Tube Feeding 1008 1344 Output: Urine 400 2600 Uretheral (Delcid) 400 1200 Other: Voiding Method Indwelling Catheter Indwelling Catheter # Voids 20 ABP, PAP, CO, CI - Last Documented Arterial Blood Pressure 135/56 - Exam -GENERAL: The patient is sitting up in bed, opens eyes spontaneously, no tracking, HEENT: Pupils are 3 mm ,round,equal and sluggish reacting to light. No scleral icterus. No conjunctival pallor. Normocephalic, atraumatic. Tracheostomy tube present. CARDIOVASCULAR: S1 and S2 present. No murmurs, rubs, or gallops. -PULMONARY: Unlabored, clear to auscultation, no wheezing, no crackles. Occasional scattered rhonchi. ABDOMEN: Soft, nontender, nondistended, normoactive bowel sounds. No palpable organomegaly. PEG tube present EXTREMITIES: No cyanosis, clubbing, or pedal edema. -s/p right BKA -NEUROLOGICAL: unresponsive to verbal or painful stinuli, opens eyes spontaneously, not to commands. Spontaneous cough, no gag. SKIN: No rashes. Microbiology 03/01/18 15:15 Catheter Tip Catheter Tip Culture - Final 02/24/18 05:25 Blood Blood Culture - Final No Growth after 144 hours 02/24/18 05:07 Blood Blood Culture - Final No Growth after 144 hours 02/24/18 03:05 Penis Anaerobic Culture - Final Anaerobic Gm Negative Bacilli Anaerobic Gm Negative Bacilli#2 Anaerobic Gram Positive Cocci 02/19/18 23:29 Blood Blood Culture - Final No Growth after 144 hours 02/24/18 05:35 Sputum Gram Stain - Final 02/24/18 05:35 Sputum Sputum Culture - Final Serratia marcescens Staphylococcus aureus 02/24/18 06:07 Urine,Catheterized Urine Culture - Final 02/24/18 03:05 Catheter Site Gram Stain - Final 02/24/18 03:05 Catheter Site Wound Culture - Final 02/20/18 07:55 Sputum Gram Stain - Final 02/20/18 07:55 Sputum Sputum Culture - Final 02/20/18 11:00 Urine,Catheterized Urine Culture - Final - Labs CBC & Chem 7: 03/07/18 07:17 03/07/18 07:17 Labs: Abnormal Lab Results - Last 24 Hours (Table) 03/06/18 03/06/18 03/07/18 Range/Units 21:00 23:52 04:02 RBC (4.30-5.90) m/uL Hgb (13.0-17.5) gm/dL Hct (39.0-53.0) % BUN (9-20) mg/dL Creatinine (0.66-1.25) mg/dL Glucose (74-99) mg/dL POC Glucose (mg/dL) 201 H 233 H 197 H (75-99) mg/dL Calcium (8.4-10.2) mg/dL Magnesium (1.6-2.3) mg/dL ALT (21-72) U/L Total Protein (6.3-8.2) g/dL Albumin (3.5-5.0) g/dL 03/07/18 03/07/18 03/07/18 Range/Units 07:17 07:17 09:25 RBC 2.60 L (4.30-5.90) m/uL Hgb 7.6 L (13.0-17.5) gm/dL Hct 24.1 L (39.0-53.0) % BUN 60 H (9-20) mg/dL Creatinine 4.21 H (0.66-1.25) mg/dL Glucose 244 H (74-99) mg/dL POC Glucose (mg/dL) 273 H (75-99) mg/dL Calcium 8.2 L (8.4-10.2) mg/dL Magnesium 2.4 H (1.6-2.3) mg/dL ALT 17 L (21-72) U/L Total Protein 6.0 L (6.3-8.2) g/dL Albumin 2.5 L (3.5-5.0) g/dL 10/05/18 10/05/18 Range/Units 11:32 16:17 RBC (4.30-5.90) m/uL Hgb (13.0-17.5) gm/dL Hct (39.0-53.0) % BUN (9-20) mg/dL Creatinine (0.66-1.25) mg/dL Glucose (74-99) mg/dL POC Glucose (mg/dL) 196 H 233 H (75-99) mg/dL Calcium (8.4-10.2) mg/dL Magnesium (1.6-2.3) mg/dL ALT (21-72) U/L Total Protein (6.3-8.2) g/dL Albumin (3.5-5.0) g/dL Assessment and Plan Assessment: -Acute hypoxic respiratory failure: Secondary to congestive heart failure chronic diastolic dysfunction with acute exacerbation patient. Status post mechanical ventilation dependent , currently trach collared. -Episode of seizure believed to be secondary to profound hypoglycemia on admission and encephalopathy EEG showed diffuse slowing. patient has metabolic and toxic encephalopathy -acute on chronic renal failure , receiving hemodialysis -metabolic encephalopathy , possibly secondary to all above -Sepsis with possible tracheobronchitis, positive sputum culture with MSSA and Serratia marcescens. 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 Culture: Many gram-negative and positive bacteria, Plan: Continue on current medication regime ,monitoring and symptomatic treatment. Hemodialysis today. Antibiotics as per infectious disease. Further recommendations from neurology pending. Maintain supportive care. Prognosis poor. The impression and plan of care has been dictated as directed. : I performed a history and examination of this patient, discussed the same with the dictator. I agree with the dictator's note ,documented as a scribe. Any additional findings or plans will be noted.
[2018-03-07 20:06] LABS: Glucose,Whole Blood 240 mg/dL (75-99)
[2018-03-07] MEDS: ATORVASTATIN 10 MG TAB PO SCH (23:16)
[2018-03-08 00:38] LABS: Glucose,Whole Blood 193 mg/dL (75-99)
[2018-03-08] MEDS: INSULIN ASPART 100 UNIT/ML 1 ML 10 ML VIAL SQ SCH ×6 (00:48→20:42)
[2018-03-08 04:24] LABS: Glucose,Whole Blood 222 mg/dL (75-99)
[2018-03-08] MEDS: IPRATROPIUM-ALBUTEROL 3 ML NEB INHALATION SCH ×4 (07:11→21:17)
[2018-03-08 07:27] LABS: Glucose,Whole Blood 245 mg/dL (75-99)
[2018-03-08] MEDS: cloNIDine HCL 0.2 MG TAB PO SCH ×3 (09:52→21:59)
[2018-03-08] MEDS: CHLORHEXIDINE GLUCONATE 15 ML CUP MUCOUS MEM SCH ×2 (09:52→21:59)
[2018-03-08] MEDS: HEPARIN SODIUM,PORCINE 5,000 UNIT/ML 1 ML VIAL SQ SCH ×2 (09:52→16:25)
[2018-03-08] MEDS: FUROSEMIDE 10 MG/ML 10 ML VIAL IV SCH ×2 (09:53→21:59)
[2018-03-08] MEDS: amLODIPine 10 MG TAB PO SCH (09:53)
[2018-03-08] MEDS: GABAPENTIN 100 MG CAP PO SCH ×3 (09:56→21:59)
[2018-03-08] MEDS: LABETALOL 200 MG TAB PO SCH ×3 (09:56→22:00)
[2018-03-08] MEDS: LOSARTAN 50 MG TAB PO SCH (09:57)
[2018-03-08] MEDS: hydrALAZINE HCL 50 MG TAB PO SCH ×3 (09:57→21:59)
[2018-03-08] MEDS: PANTOPRAZOLE 40 MG/10 ML VIAL IVP SCH (09:58)
[2018-03-08] MEDS: THIAMINE 100 MG/ML 2 ML VIAL IVP SCH (09:58)
[2018-03-08] MEDS: TAMSULOSIN 0.4 MG CAP.ER.24H PO SCH (09:58)
[2018-03-08] MEDS: VALPROATE SODIUM 750 MG in SODIUM CHLORIDE 0.9% 50 ML IVPB SCH ×3 (10:18→23:24)
[2018-03-08 11:03] LABS: Glucose,Whole Blood 283 mg/dL (75-99)
[2018-03-08 16:08] LABS: Glucose,Whole Blood 240 mg/dL (75-99)
--- NOTE | 2018-03-08 16:35 | P.PN ---
Subjective Progress Note Date: 03/08/18 67-year-old -[place] male patient was currently being seen in follow-up in the intensive care units. The patient has multiple medical problems and comorbidities. The most active problem for now as his diminished level of consciousness and encephalopathy. Neurologist on the case. The patient is considered to have metabolic encephalopathy. The patient received 4 sessions of hemodialysis and there is no significant improvement in his mental status. In fact today's quite unresponsive and is not responding to any painful or verbal stimulation. No seizure activity has been noted. Pupils are sluggishly reactive to light. He is being seen by neurology. CAT scan of the brain was done that showed no abnormalities. The patient had EGD that showed no evidence of any seizure activity is consistent with encephalopathy. On today's evaluation the patient was seen to be in a mechanical ventilator. He was in a tidal volume of 500 and FiO2 of 30% and a PEEP of 5 and the respiratory rate of 14. I saw the patient was quite comfortable with his breathing and a chest x- ray showed negative abnormalities other than some small bilateral pleural effusion more so on the left. Based on that, I put the patient on a pressure support of 5 and a PEEP of 5 and the patient was able to tolerate well with tidal volumes in the 600s range and a low respiratory rate. At that point I made recommendations to discontinue the mechanical ventilator this patient knowing that he should be able to protect his airways and he should be able to breathe spontaneously by himself without the help of a mechanical ventilator. The patient will be receiving his dialysis today. The patient has had no fever. His white cell count is at 5.8. His hemoglobin is at 7.4. Renal function is impaired and the patient has stage IV kidney disease at baseline and patient's current creatinine is at 5.9 with a BUN of 103. No hyperkalemia. Blood gases from today showed a pH of 7.4 with a pCO2 of 42 and pO2 of 105 and this was done and FiO2 of 30% while the patient being an assist-control mode of ventilation. His sputum is showing Serratia and staph aureus. The staph aureus is an MSSA and based on this IV was evaluated the patient and the patient was placed on IV cefepime. Blood pressure remains elevated. I made some adjustments and suggested switching around his blood pressure medication to achieve a blood pressure control which is tighter than the one that we have right now. He is afebrile. On 03/04/2018, Mr. damon is being seen for a follow-up. The patient remains completely unresponsive. I try to stimulate him today with deep painful stimulation and I do not see any response and he was not withdrawing to painful stimulation. The patient does not communicate. He does not maintain eye contact. Pupils are round 3 mm in size and they're reactive to light. No gag. He does have some limited cough. I was able to get him off the mechanical ventilator yesterday today's on a trach collar. Is able to breathe comfortably without any major difficulties. He underwent dialysis yesterday without a total of 2.8 L of fluid was removed. Nevertheless, he remains encephalopathic and unresponsive and the patient did not show any improvement in his mental status despite ongoing dialysis. I think neurology should come back and give us a final prognosis on this patient knowing that there may be possible height hypoglycemic brain injury and the patient could be deeply comatose due to prolonged hypoglycemia this could've happened at time of this admission. No fever. No chills. No significant rest or secretions. Chest x-ray findings are showing some mild component of CHF. The patient is tolerating enteral feeding for nutritional support. He is on IV cefepime regarding sedation staph aureus/MSSA in the sputum. Hemodynamically stable. No other significant events over the past 24 hours. On 03/05/2018 patient seen in follow-up in the intensive care unit. He remains unresponsive, per family, he occasionally opens his left eye, but he does not follow command. He remains on trach collar with FiO2 of 30%. This morning patient is not attempting to open his eyes, moved his head slightly to verbal and tactile stimulation. Pupils are 3 mm in size, sluggishly reactive to light. No gag or cough. Per family patient was moving his legs yesterday. Patient does not seem to be having any difficulty breathing. Did not have any dialysis yesterday, he had dialysis the day before yesterday, would removal of 2800 mL of fluid. He is scheduled for dialysis again today. His labs have been reviewed, WBC is 7.7, hemoglobin is 7.7, sodium is 140, potassium 3.4, BUN is 74, creatinine is 4.74. Patient sputum culture was positive for Serratia marcescens, and MSSA. Patient is currently on cefepime, no ongoing fever or chills. Remains on IV Lasix at 80 mg every 12 hours, and patient is producing urine in the order of 10 to 40 mL per hours. Lung sounds are clear, diminished at the bases. No significant secretions from the trach. He had a repeat EEG yesterday, which showed generalized slowing of the background rhythm in the theta range. Consistent with mild encephalopathy, no epileptiform discharges were seen. Patient has a PEG tube in place, he is on tube feedings with Nepro, at a rate of 42 ML per hour, which is goal. On 03/06/2018 the patient remains in intensive care unit. The active issue for now is his unresponsiveness and comatose state. I'm unable to get any meaningful response from this patient. He does not follow commands. He does not track. He does not withdraw to any painful stimulation. At times he spontaneously opens up his eyes. No seizure activity has been noted. Pupils around 3-4 mm in size sluggishly reactive to light. He does have a positive cough. EEG showed diffuse slowing. There was no evidence of any seizure activity. CAT scan of the brain showed no acute process. Serum ammonia level was less than 9. The patient has undergone routine dialysis without any improvement in his mental status is in his such uremic encephalopathy is felt to be much less likely. The patient is currently on a trach collar. His tracheostomy tube is in place. No signs of any respiratory distress. No excessive oral tracheal secretions. No fever. No chills. He is undergoing hemodialysis and his last session was yesterday. His chest x-ray still showing some left-sided pleural effusion and mild pulmonary vascular congestion. Is receiving enteral feeding for nutritional support via active and the patient is on Nepro. Antibiotic coverage includes IV cefepime based on a previous MSSA and Serratia cultured from his sputum. Blood pressures under good control for now on various antihypertensive medication which includes a combination of losartan, labetalol, clonidine and hydralazine and Norvasc. On 03/07/2019, the patient clinically unchanged. Completely unresponsive to verbal stimulation and painful stimulation. Laying comfortably in bed. No signs of any respiratory distress. Undergoing dialysis. He has a tracheostomy tube in place. Limited amount of rest or secretions are being suctioned out on a regular basis. No fever. No chills. No night sweats. No other complaints otherwise for now. Tolerating his tube feeds. We are awaiting further discussions extensive seen neurology and the family as far as long-term treatment goals On 03/08/2018, the patient is unchanged clinically. On a medical floor. Dialyzed yesterday. Mild to moderate amount of rest or secretions requiring on and off suctioning. No signs of icterus or distress. Tolerating diet. Remains unresponsive. Objective - Vital Signs Vital signs: Vital Signs Temp 98.6 F 03/08/18 12:30 Pulse 75 03/08/18 12:30 Resp 16 03/08/18 12:30 BP 115/59 03/08/18 12:30 Pulse Ox 97 03/08/18 12:30 Intake & Output 03/07/18 03/08/18 03/08/18 18:59 06:59 18:59 Intake Total 1344 534 Output Total 2600 400 Balance -1256 534 -400 Weight 78 kg 78 kg Intake: IV 30 NS 30 Tube Feeding 1344 504 Output: Urine 2600 400 Uretheral (Delcid) 1200 Other: Voiding Method Indwelling Catheter Indwelling Catheter Indwelling Catheter # Voids 20 20 # Bowel Movements 0 ABP, PAP, CO, CI - Last Documented Arterial Blood Pressure 135/56 - Exam Gen. appearance the patient is a calm and comfortable individual resting comfortably in bed. He is unresponsive not following any verbal commands HEENT examination is grossly unremarkable. Mucous membranes are moist. No oral lesions. Neck supple. Full range of motion. No adenopathy thyromegaly or neck vein distention. A midline tracheostomy is noted. The patient has a Shiley tracheostomy tube in place #8. Cardiovascular examination reveals regular rhythm rate. S1-S2 normal. No S3 or S4. Lungs reveal mostly clear breath sounds. Her sounds are equal bilaterally. There are a few scattered rhonchi. No wheezes or crackles. The patient is on a trach collar for now. Abdomen soft bowel sounds are heard. No masses or tenderness. PEG tube is noted. Tube feedings with Nepro at a rate of 42 ML per hour, which is goal. Extremities are intact. No cyanosis clubbing or edema. The patient has a below -knee and position of the right lower extremity. Left leg is within normal limits. Skin is without rash or lesion. Neurologic unresponsive and deeply comatose. Pupils are 3 mm in size and they' re reactive to light. No nystagmus. No gag. Weak cough is present. No facial asymmetry. Unresponsive to deep painful stimulation. Flaccid without hyperreflexia and the patient does not have any Babinski in the left lower extremity. No clonus. No seizure activity. There is no change in his neurologic status and function on today's evaluation compared to yesterday. He remains deeply comatose without any response to stimulation. - Labs CBC & Chem 7: 03/07/18 07:17 03/07/18 07:17 Labs: Abnormal Lab Results - Last 24 Hours (Table) 03/07/18 03/08/18 03/08/18 Range/Units 19:53 00:37 04:03 POC Glucose (mg/dL) 240 H 193 H 222 H (75-99) mg/dL 03/08/18 03/08/18 03/08/18 Range/Units 07:25 11:00 16:07 POC Glucose (mg/dL) 245 H 283 H 240 H (75-99) mg/dL Microbiology - Last 24 Hours (Table) 03/07/18 17:45 Urine Culture - Preliminary Urine,Catheterized Assessment and Plan Plan: 1 Acute hypoxic respiratory failure due to combination of pneumonia and fluid overload/pleural effusion. The patient is post tracheostomy tube insertion and the patient has a trach collar 30% FiO2 and today's chest x-ray shows a small left-sided pleural effusion and the patient's volume status is improved and he remains on IV cefepime regarding potential pneumonia with Serratia/MSSA. No significant respiratory distress at this point in time.. The patient has limited amount of rest or secretions and he remains, comfortable without any signs of respiratory distress. He got moved out of the intensive care unit yesterday and the patient is currently on a medical floor. On today's evaluation the patient is seen on the medical floor. Condition remains unchanged and the patient remains unresponsive without any progress in terms of neurologic recovery. I think this will be quite an ongoing issue for lung. Of time. 2 unresponsive/comatose state, likely secondary to anoxic encephalopathy related to prolonged hypoglycemia. . Neurologic functions remain unchanged 3 Profound hypoglycemia on presentation, with a possibility the of a low blood sugar/hypoglycemic [employer] injury and secondary metabolic encephalopathy, as the patient remains comatose and the patient is not showing any signs of recovery. 4 Serratia marcescens and oxacillin sensitive staph aureus tracheobronchitis/ bronchopneumonia, currently on IV cefepime 5 anoxic encephalopathy secondary to prolonged hypoglycemia. There is no improvement in the mentation over the past week and the patient had a repeat CAT scan of the brain and EEG indicating advanced encephalopathy. 6 Acute kidney injury with ATN, on top of chronic stage 4-5 chronic kidney disease. The patient is currently on hemodialysis 7 History of chronic anemia 8 COPD 9 Diabetes mellitus with diabetic neuropathy and nephropathy. 10 History of hepatitis C infection 11 History of chronic liver disease 12 History of gout 13 History of deep venous thrombosis 14 History of chronic back pain 15 Remote history of IV drug abuse 16 History of hypertensive urgency, current blood pressure is under poor control PLAN Pulmonary and critical care services we'll sign off. Continue rest of the care with nephrology and medicine. He may be a candidate for hospice specially if he continues to have impaired mentation. I have discussed this with his sister.
[2018-03-08] MEDS: CEFEPIME 1 GM in SODIUM CHLORIDE 0.9% 50 ML IVPB SCH (18:34)
[2018-03-08] MEDS ORDERED: VANCOMYCIN IV PER PHARMACY 1 EACH MISC MISCELLANE PRN (19:49)
[2018-03-08 20:22] LABS: Glucose,Whole Blood 233 mg/dL (75-99)
[2018-03-08] MEDS ORDERED: VANCOMYCIN 1,500 MG in SODIUM CHLORIDE 0.9% 250 ML IVPB ONE (20:30)
[2018-03-08] MEDS: ATORVASTATIN 10 MG TAB PO SCH (21:59)
--- NOTE | 2018-03-08 23:27 | PN ---
PROGRESS NOTE DATE OF SERVICE: 03/08/2018. INTERVAL HISTORY: This 67-year-old gentleman who was admitted with multiple medical issues including acute respiratory failure, seizure disorder, hypoglycemia, also had metabolic encephalopathy. Also the patient continues to be unresponsive at this time. The patient is on tube feeds. The patient has tracheostomy also. Patient is being closely monitored. The most recent chest x-ray done on March 07 showed some of congestive heart failure. EXAM: The patient unresponsive. Pulse 75, blood pressure 115/59, respiration 16, temperature 98.2, pulse ox 97% on room air. HEENT: Conjunctivae normal. Neck: No jugular venous distention. Cardiovascular systems: S1, S2. Respiration: Breath sounds diminished in the bases. A few scattered rhonchi and crackles. ABDOMEN: Soft, nontender. Legs: No edema and no swelling. Central nervous system: No focal deficits. LABS: WBC is 7.2, hemoglobin 7.6, glucose 240, creatinine is 4.21. ASSESSMENT: 1. Acute hypoxic respiratory failure secondary to congestive heart failure, acute exacerbation acute on chronic diastolic dysfunction. 2. Episode of seizure disorder secondary to hypoglycemia. 3. Acute on chronic renal failure. 4. Metabolic encephalopathy with secondary to multiple factors as described above. 5. Sepsis with possible acute tracheobronchitis. The sputum positive for MSSA and Serratia marcescens. 6. Acute renal failure. 7. Hyperkalemia. 8. Chronic kidney stage 4. 9. Anemia of chronic disease. 10.Peripheral vascular disease. 11.Diabetes type 2. 12.Hepatitis C and hepatitis B. 13.Hyperlipidemia. 14.Purulent discharge from penile orifice. RECOMMENDATIONS AND DISCUSSION: Recommend to continue current medications, continue symptomatic treatment, management and otherwise at this time I would monitor the patient closely. The prognosis guarded because of multiple complex medical issues, we will monitor the patient along with multiple consultants. Further recommendations to follow. MMODL / IJN: [id number] /
[2018-03-09 00:11] LABS: Glucose,Whole Blood 212 mg/dL (75-99)
[2018-03-09] MEDS: HEPARIN SODIUM,PORCINE 5,000 UNIT/ML 1 ML VIAL SQ SCH ×3 (00:25→16:33)
[2018-03-09] MEDS: INSULIN ASPART 100 UNIT/ML 1 ML 10 ML VIAL SQ SCH ×6 (00:25→22:00)
[2018-03-09 04:01] LABS: Glucose,Whole Blood 200 mg/dL (75-99)
[2018-03-09] MEDS: IPRATROPIUM-ALBUTEROL 3 ML NEB INHALATION SCH ×4 (07:10→19:28)
[2018-03-09 07:31] LABS: Glucose,Whole Blood 202 mg/dL (75-99)
[2018-03-09 07:58] LABS: Basophils % (A) 0 %; Eosinophils # (A) 0.1 k/uL (0-0.7); Eosinophils % (A) 1 %; HCT 22.7 % (39.0-53.0); HGB 7.4 gm/dL (13.0-17.5); Lymphocytes % (A) 14 %; MCH 29.7 pg (25.0-35.0); MCHC 32.7 g/dL (31.0-37.0); MCV 90.9 fL (80.0-100.0); Mean Platelet Volume 7.2; Monocytes # (A) 0.8 k/uL (0-1.0); Monocytes % (A) 12 %; Neutrophils # (A) 5.2 k/uL (1.3-7.7); Neutrophils % (A) 72 %; Platelet Count 316 k/uL (150-450); RDW 14.7 % (11.5-15.5); WBC 7.2 k/uL (3.8-10.6)
[2018-03-09 08:15] LABS: Calcium 8.5 mg/dL (8.4-10.2); Potassium 4.2 mmol/L (3.5-5.1)
[2018-03-09] MEDS: FUROSEMIDE 10 MG/ML 10 ML VIAL IV SCH ×2 (08:28→23:09)
[2018-03-09] MEDS: GABAPENTIN 100 MG CAP PO SCH ×3 (08:33→23:09)
[2018-03-09] MEDS: LOSARTAN 50 MG TAB PO SCH (08:33)
[2018-03-09] MEDS: TAMSULOSIN 0.4 MG CAP.ER.24H PO SCH (08:33)
[2018-03-09] MEDS: amLODIPine 10 MG TAB PO SCH (08:34)
[2018-03-09] MEDS: hydrALAZINE HCL 50 MG TAB PO SCH ×3 (08:34→23:08)
[2018-03-09] MEDS: cloNIDine HCL 0.2 MG TAB PO SCH ×3 (08:34→23:10)
[2018-03-09] MEDS: CHLORHEXIDINE GLUCONATE 15 ML CUP MUCOUS MEM SCH ×2 (08:34→23:09)
[2018-03-09] MEDS: PANTOPRAZOLE 40 MG/10 ML VIAL IVP SCH (08:34)
[2018-03-09] MEDS: LABETALOL 200 MG TAB PO SCH ×3 (08:34→23:09)
[2018-03-09] MEDS: THIAMINE 100 MG/ML 2 ML VIAL IVP SCH (08:35)
--- NOTE | 2018-03-09 08:43 | PN ---
PROGRESS NOTE The patient was seen this morning. His mentation remains the same. He is currently maintained on a Saturday, Saturday, Saturday schedule. EXAMINATION: This morning, blood pressure was 133/69, heart rate of 70 per minute. He is afebrile. Patient is afebrile. Examination of the heart: S1, S2. Examination of lungs: Bilateral breath sounds are heard. Decreased breath sounds at bases. Abdomen is soft, nontender. 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 Mentation is the same with the patient being essentially unresponsive to any stimuli. He has some semi purposeful movements. He is currently maintained on a trach collar. LAB: Show sodium 137, potassium 4.3, BUN 60, serum creatinine 4.21, hemoglobin 7.6 g/dL. ASSESSMENT: 1. Advanced renal failure, currently hemodialysis dependent in basically end-stage renal disease, maintained on a Saturday, Saturday, Saturday schedule. 2. Encephalopathy, most likely associated with underlying hypoglycemia at the time of admission. 3. Status post vent dependent respiratory failure. 4. Serratia marcescens and oxacillin sensitive Staph tracheobronchitis/pneumonia. 5. Hypertension currently controlled. 6. Hepatitis C infection with the hep C viremia noted on last admission. PLAN: Will continue to maintain patient on a Saturday, Saturday, Saturday schedule for dialysis until the code status is changed. MMODL / IJN: [id number] /
[2018-03-09] MEDS: VALPROATE SODIUM 750 MG in SODIUM CHLORIDE 0.9% 50 ML IVPB SCH ×3 (08:46→22:00)
[2018-03-09 11:05] LABS: Glucose,Whole Blood 142 mg/dL (75-99)
[2018-03-09] MEDS: DARBEPOETIN ALFA 40 MCG/0.4 ML SYRINGE SQ SCH (13:39)
[2018-03-09 16:18] LABS: Glucose,Whole Blood 241 mg/dL (75-99)
--- NOTE | 2018-03-09 17:01 | PN ---
PROGRESS NOTE Patient is seen for followup for end-stage renal disease, currently maintained on a Saturday, Saturday, Saturday schedule. Again, there is no change in his mentation. PHYSICAL EXAMINATION: Blood pressure 130/70, heart rate 73 per minute. He is afebrile. Examination of the heart S1, S2. Examination of the lungs bilateral breath sounds are heard. The patient remains on a trach collar. Examination of lower extremities shows a right BKA. LAB: Show sodium 137, potassium 4.2, hemoglobin 7.4 g/dL. ASSESSMENT: 1. End-stage renal disease. Patient will be scheduled for hemodialysis tomorrow. 2. Encephalopathy secondary hypoglycemia on initial admission. 3. Status post respiratory failure, currently extubated and maintained on trach collar. 4. Hypertension currently controlled. PLAN: Hemodialysis in a.m. with UF of about 2-3 L as tolerated. MMODL / IJN: [id number] /
[2018-03-09] MEDS: CEFEPIME 1 GM in SODIUM CHLORIDE 0.9% 50 ML IVPB SCH (18:09)
--- NOTE | 2018-03-09 19:19 | PN ---
PROGRESS NOTE DATE OF SERVICE: 03/09/2018. INTERVAL HISTORY: This 67-year-old gentleman who was admitted with acute hypoxic respiratory failure is being closely monitored. Patient also had a possible anoxic encephalopathy. The patient also. EXAM: Patient is unresponsive. Pulse 73, blood pressure 130/70, respiration 16, temperature 98.2, pulse ox 98% on room air. HEENT: Conjunctivae normal. NECK: No jugular venous distention. CARDIOVASCULAR: S1, S2. RESPIRATORY: Breath sounds diminished in the bases. A few scattered rhonchi and crackles. ABDOMEN: Soft, nontender. LEGS: No edema. NERVOUS SYSTEM: No focal deficit. LABS: WBC 7, hemoglobin 7.4, creatinine is 4.80. ASSESSMENT: 1. Acute hypoxic respiratory failure secondary to congestive heart failure acute exacerbation with acute on chronic diastolic dysfunction. 2. Change in mental status, metabolic encephalopathy secondary to hypoglycemia. 3. Seizure disorder possibly secondary to hypoglycemia. 4. Acute on chronic renal failure. 5. Metabolic encephalopathy secondary to multiple factors. 6. Sepsis with possible severe tracheobronchitis, sputum positive MSSA and Serratia marcescens. 7. Acute renal failure. 8. Hyperkalemia. 9. Chronic kidney stage IV. 10.Anemia of chronic disease. 11.Peripheral vascular disease. 12.Diabetes mellitus type 2. 13.Hepatitis C and B. 14.Hyperlipidemia. 15.Purulent discharge from the penile orifice. RECOMMENDATIONS AND DISCUSSION: I recommend to continue current management and symptomatic treatment. Continue with broad-spectrum IV antibiotics, continue with bronchodilators. Continue the rest of medications. Closely follow with multiple consultants. Prognosis guarded. Further recommendations to follow. MMODL / IJN: [id number] / MTDD
[2018-03-09 20:23] LABS: Glucose,Whole Blood 236 mg/dL (75-99)
[2018-03-09] MEDS: ATORVASTATIN 10 MG TAB PO SCH (23:09)
[2018-03-09] MEDS: DOCUSATE ORAL SOLN 100 MG/10 ML CUP PO SCH (23:09)
[2018-03-10 00:09] LABS: Glucose,Whole Blood 257 mg/dL (75-99)
[2018-03-10] MEDS: INSULIN ASPART 100 UNIT/ML 1 ML 10 ML VIAL SQ SCH ×6 (00:46→20:26)
[2018-03-10] MEDS: HEPARIN SODIUM,PORCINE 5,000 UNIT/ML 1 ML VIAL SQ SCH ×3 (00:46→17:27)
--- NOTE | 2018-03-10 00:54 | PN ---
PROGRESS NOTE DATE OF SERVICE: 03/09/2018 REASON FOR FOLLOWUP: MSSA and Serratia marcescens pneumonia. INTERVAL HISTORY: The patient did have a low-grade fever of 100.1 to 100.2 in the night of 03/07/2018. He has been afebrile since then. Apparently the patient did have a blood culture on March 07, which is currently showing coagulase negative staph in one of the blood cultures out of the 2 sets. The patient is hemodynamically stable. The patient is tolerating his tube feeds. No diarrhea as per nursing staff. ____ remains to be a problem. He is on ____. EXAMINATION: Blood pressure 132/59 with a pulse of 78, temperature 98.9. He is 96% on trach collar/ GENERAL DESCRIPTION: An elderly male lying in bed in no distress. RESPIRATORY SYSTEM: Unlabored breathing, decreased breath sounds in the bases. No wheeze. HEART: S1, S2. Regular rate and rhythm. ABDOMEN: Soft, no tenderness. EXTREMITIES: Right BKA stump with no wound. LABS: Hemoglobin 7.4, white count 7.2, BUN of 65, creatinine 4.80. Blood cultures on 03/07 coagulase negative Staph. DIAGNOSTIC IMPRESSION AND PLAN: Patient with MSSA and Serratia marcescens pneumonia. Pain is adequate. The patient has been on cefepime since 02/26/2018. Recommend discontinue cefepime on discharge. Patient with low-grade fever, now with positive blood culture with coagulase-negative staph. Question of possible contamination. However, the patient did have a right subclavian PermCath. Hence, recommend a short course of IV Vanco, pharmacy to dose. Continue supportive care. MMODL / IJN: [id number] /
[2018-03-10 04:19] LABS: Glucose,Whole Blood 217 mg/dL (75-99)
[2018-03-10] MEDS: IPRATROPIUM-ALBUTEROL 3 ML NEB INHALATION SCH ×4 (08:06→19:07)
[2018-03-10 08:07] LABS: Glucose,Whole Blood 241 mg/dL (75-99)
[2018-03-10] MEDS: VALPROATE SODIUM 750 MG in SODIUM CHLORIDE 0.9% 50 ML IVPB SCH ×3 (09:01→23:18)
[2018-03-10] MEDS: THIAMINE 100 MG/ML 2 ML VIAL IVP SCH (09:02)
[2018-03-10] MEDS: TAMSULOSIN 0.4 MG CAP.ER.24H PO SCH (09:02)
[2018-03-10] MEDS: PANTOPRAZOLE 40 MG/10 ML VIAL IVP SCH (09:02)
[2018-03-10] MEDS: LABETALOL 200 MG TAB PO SCH ×3 (09:03→21:43)
[2018-03-10] MEDS: LOSARTAN 50 MG TAB PO SCH (09:03)
[2018-03-10] MEDS: amLODIPine 10 MG TAB PO SCH (09:04)
[2018-03-10] MEDS: hydrALAZINE HCL 50 MG TAB PO SCH ×3 (09:04→21:43)
[2018-03-10] MEDS: cloNIDine HCL 0.2 MG TAB PO SCH ×3 (09:04→21:43)
[2018-03-10] MEDS: CHLORHEXIDINE GLUCONATE 15 ML CUP MUCOUS MEM SCH ×2 (09:04→20:25)
[2018-03-10] MEDS: DOCUSATE ORAL SOLN 100 MG/10 ML CUP PO SCH ×2 (09:04→20:25)
[2018-03-10] MEDS: GABAPENTIN 100 MG CAP PO SCH ×3 (09:04→21:43)
[2018-03-10] MEDS: FUROSEMIDE 10 MG/ML 10 ML VIAL IV SCH ×2 (09:05→20:25)
[2018-03-10 11:22] LABS: Basophils % (A) 0 %; Eosinophils # (A) 0.1 k/uL (0-0.7); Eosinophils % (A) 2 %; HCT 24.1 % (39.0-53.0); HGB 7.9 gm/dL (13.0-17.5); Lymphocytes # (A) 0.9 k/uL (1.0-4.8); Lymphocytes % (A) 12 %; MCH 29.7 pg (25.0-35.0); MCHC 32.9 g/dL (31.0-37.0); MCV 90.2 fL (80.0-100.0); Monocytes # (A) 0.6 k/uL (0-1.0); Monocytes % (A) 8 %; Neutrophils # (A) 5.8 k/uL (1.3-7.7); Neutrophils % (A) 77 %; Platelet Count 341 k/uL (150-450); RBC 2.67 m/uL (4.30-5.90); RDW 14.6 % (11.5-15.5); WBC 7.5 k/uL (3.8-10.6)
[2018-03-10 11:46] LABS: Calcium 8.8 mg/dL (8.4-10.2); Potassium 4.2 mmol/L (3.5-5.1)
[2018-03-10 11:51] LABS: Vancomycin,Random 13.5 ug/mL
[2018-03-10 11:51] LABS: Glucose,Whole Blood 267 mg/dL (75-99)
[2018-03-10] MEDS ORDERED: VANCOMYCIN 1,500 MG in SODIUM CHLORIDE 0.9% 250 ML IVPB ONE (13:00)
--- NOTE | 2018-03-10 13:08 | PN ---
PROGRESS NOTE The patient is seen for followup for end-stage renal disease. He will be dialyzed today and the patient is currently on a trach collar. He remains fairly unresponsive with no purposeful movements. EXAMINATION: Blood pressure was 137/70, heart rate is 72 per minute. He is afebrile. Examination of the heart S1, S2. Examination of lungs decreased breath sounds at bases. Abdomen is soft, nontender. Examination of lower extremity shows right BKA. No significant edema noted in his left lower extremity. BUSINESS ANALYST CONSULTANT exam shows the patient with no significant response to stimuli. LABORATORY DATA: The lab show sodium 134, potassium 4.2, BUN 88, serum creatinine 5.6, hemoglobin 7.9. ASSESSMENT: 1. End-stage renal disease, on hemodialysis on a Saturday, Saturday, Saturday schedule. We will arrange for hemodialysis today. 2. Encephalopathy, most likely related to profound hypoglycemia. 3. Status post vent dependent respiratory failure, currently on trach collar. 4. Anemia with no active bleeding noted. The patient is maintained on Aranesp. 5. Hypertension currently controlled. PLAN: Hemodialysis today. MMODL / IJN: [id number] /
--- NOTE | 2018-03-10 15:05 | PN ---
PROGRESS NOTE DATE OF SERVICE: . REASON FOR FOLLOWUP VISIT: 1. Pneumonia. 2. Positive blood culture. INTERVAL HISTORY: The patient is currently afebrile. The patient remains to be unresponsive and will not provide any history. He is hemodynamically stable, not on any pressor support. Affect is currently stable on trach collar. Tolerating his tube feeds. No significant diarrhea notice or any reported by the nursing staff. PHYSICAL EXAMINATION: Blood pressure 137/70 with a pulse of 72, temperature 98, he is 96 on trach collar. General description is an elderly male, lying in bed in no distress. RESPIRATORY SYSTEM: Unlabored breathing, coarse breath sounds bilaterally, no wheeze. HEART: S1, S2. Regular rate and rhythm. ABDOMEN: Soft, no tenderness. LABS: Hemoglobin 7.8, white count of 7.5. BUN of 88, creatinine 5.66, of 13.5. DIAGNOSTIC IMPRESSION AND PLAN: 1. Patient with methicillin-sensitive Staphylococcus aureus and Serratia marcescens pneumonia has adequately been adequately treated with antibiotic, cefepime has been discontinued. 2. Patient with positive . Will keep the patient on vancomycin, pharmacy to dose for at least 10 days. Continue supportive care. MMODL / IJN: [id number] /
[2018-03-10 16:39] LABS: Glucose,Whole Blood 193 mg/dL (75-99)
--- NOTE | 2018-03-10 17:32 | P.PN ---
Subjective Progress Note Date: 03/10/18 Progress note being dictated for Dr. Beyer. Interval history:Patient is a 67-year-old -[place] male who is being followed by the neurology service for possible seizure. Patient was brought to [facility] emergency room with shortness of breath. He was found to have significant pulmonary edema. Patient does have stage IV chronic kidney disease. Patient was being treated in the emergency room when one of the nurses noted patient to be unresponsive. Patient had questionable jerking activity. Patient had significant hypoglycemia in the 20s. He was given D50, intubated and sedated. Patient is currently in the ICU. Computed tomography scan of the brain was done which showed no acute abnormality. Computed tomography scan did show evidence of mild generalized atrophy. Patient was noted to have some rhythmic jerking. Patient was taken off propofol and had an EEG done. EEG showed generalized slowing of the background rhythm. EEG also showed significant triphasic waves which is commonly seen in hepatic pathology. Myoclonic activity was described. Patient was started on Depakote 500 mg every 12 hours IV. Staff reports no further jerking movements since starting Depakote. Patient remains sedated with propofol and on mechanical ventilation. acute kidney injury on chronic kidney disease. Patient has chronic kidney disease stage IV secondary to biopsy-proven diabetic kidney disease with severe chronicity. His baseline creatinine has been in the range of 4-5. Creatinine was 7.65 on admission 02/23/2018 this is my first day taking care of the pt , pt is still on vent , he has been off sedation , however he is still not waking up as expected . pt could have metabolic encephalopathy , vs other . pt with acute on chronic Kidney disease stage IV. nephrology are following the case .Creatinine was 7.65 on admission and is 5.99 today. pt is been seen by neurology who recommended to repeat the EEG and result is pending.pt had subtherapeutic level and extra doses were provided for him yesterday EEG from 02/21: abnormal with significant triphasic waves which is commonly seen in hepatic encephalopahty pt still does not respond to pain stimuli. despite been off sedation since this morning. pupils are equal and reactive to light, meningeal signs were absent when i examined the pt this morning pt has h/o Hep C and B , we will check ammonia level and other work up like B12 ,thyroid function test, syphlis screen ,repeat CT of the head ,with neurology follow up. no fever , no leukocytosis 02/24/2018 no change from yesterday in his mental status from the first time a saw her , still unresponsive , neurologist team is following the pt and recommended repeat EEG. critical care input is appreciated . ammonia level and TSH were negative , repeat CT head is negative for acute process as well 02/25/2018 Patient remains unresponsive as before. Repeat EEG showing moderate encephalopathy, significant triphasic waves consistent with hepatic disease. Occasional sharp wave consistent with due to seizure threshold. But no generalized epileptiform discharge. Patient is a plan to have trach placed on the surgical site. As well as dialysis catheter for dialysis. Patient has Delcid catheter with 40 mL in the bag. There is purulent discharge from the penis. Discussed with staff. Check culture for the discharge, change. AND CHECK BLADDER SCAN 02/26/2018 Patient remains unresponsive, the same. Patient had a dialysis catheter placed. Than his going for hemodialysis currently. Patient has been evaluated by civil process server on their input is appreciated. Patient is planned for going for PEG and tracheostomy possibly tomorrow, as per family wishes. To call care consult is appreciated. He has positive sputum culture was fracture and staphylococcus. urine discharge so there was has been changed. Urine culture is pending. We'll consult infectious diseases specialist. Patient with mild leukocytosis 02/27/2018 No improvement in the patient mental status, he remains unresponsive and intubated. Went for dialysis yesterday and today. And PEG tube with check estimated are planned for the patient's in 1 or 2 days. Prognosis remains very poor. The sputum culture is growing Serratia and staph aureus. ID consult is appreciated and patient was started on cefepime. Also patient got IV vancomycin doses . Pulmonary/critical care input is appreciated. Hemoglobin at 7.1. No leukocytosis. He had fever yesterday at 100.2 02/28/2018 pt is unresponsive, intubated , he is undergoing hemodialysis , and he is on antibiotic , he is responding a little bit to suctioning his mouth but only minimally , prognosis remains poor and guarded. pt had PEG and treacheostomy, he remains on cefepime per ID recommendation . pt has Serratia marcescens and staph aureus. while his penile c/s showing many gr-ve bacilli (areobic and unaerobic) and gram positive cocci (unaerobic) 03/03/2018 Patient is unresponsive, has tracheostomy and PEG tube. His undergoing hemodialysis. He is on antibiotics for infection his respiratory and urinary systems. Patient is smoking a grimace to painful stimuli but no more more than that. Continue with supportive care. Prognosis remains very poor 03/04/2018 No change in mental status of the patient, he remains unresponsive. Status post tracheostomy and PEG tube insertion. Continue with hemo-dialysis. And nephrology team are following the patient Continue with antibiotic. Continue with valproate. Critical care/pulmonary team evaluation and follow-up is appreciated. He is off mechanical ventilation currently and continue with trach collar. Continue with Protonix for GI prophylaxis. Patient has some grimace to painful stimuli, however unresponsive to verbal or tactile stimuli. Neurological evaluation is recommended with some workup like EKG and CAT scan of the brain Review of system: N/a Medication with dosages were reviewed including Tylenol 325 mg, Monica up 0.5-3 mg. Norvasc 10 mg. Lipitor 10 mg. Calcium acetate 667 mg. Ceftriaxone 1000 mg. Chlorhexidine. Clonidine 0.3 mg patch. Lasix 80 mg. Neurontin 100 mg. Heparin 5000 unit. Hydralazine 40 mg. NovoLog sliding scale. Labetalol 400 mg. Narcan 0.2 mg. protonix 40 mg. propofol on hold. sodium bicarb 650 mg. flomax 0.4 mg. thiamine 100 mg. valproic acid 750 mg. 03/05/[address] reporting atrophy. Positive cough with purulent yellow secretions.Gag response absent. Tolerating tube feeds at goal with minimal to no residuals. Sputum cultures reporting Serratia marcescens, MSSA. Afebrile. Maintained on cefepime as per ID. Spontaneously opens eyes, did not witness any movement-flaccid. Not communicating, and does not follow commands. Hypertensive, ARB resumed.Scheduled for hemodialysis today. Repeat EEG yesterday, reported slowing, consistent with mild encephalopathy without epileptiform discharges seen. No seizure activity reported. Chest x-ray reporting volume overload, CHF, uremia, basilar effusions, atelectasis, maintained on IV Lasix. Continues on 30% FiO2 trach collar. 03/06/2018 neurologic condition unchanged. Unresponsive to noxious stimuli. Spontaneously opens eyes, without tracking, does not follow commands. Maintained on trach collar. Positive cough, response. tolerating tube feeds at cough. maintained on iv antibiotics as per infectious disease. Chest x-ray reporting mild pulmonary vascular congestion, left-sided pleural effusion. Lengthy discussion between pulmonary/fellmongering machine operator and family, Dr. Coates and family via phone regarding poor prognosis, given no improvement in mental status. At this time family wishes to maintain full code, discussing no CODE STATUS among themselves. Comfort care/hospice options also discussed. 03/07/2018 maintained on cefepime for sputum with MSSA and Serratia marcescens. Afebrile. Maintained on 30% trach collar, without respiratory distress. Receiving hemodialysis today. Clinical/neurological presentation unchanged- unresponsive. Tolerating tube feeds at goal. Review of systems unable to obtain as patient is unresponsive. Active Medications Acetaminophen (Tylenol Tab) 325 mg PO Q6HR PRN PRN Reason: Fever and/ or Mild Pain Last Admin: 03/07/18 17:27 Dose: 325 mg Albuterol/Ipratropium (Duoneb 0.5 Mg-3 Mg/3 Ml Soln) 3 ml INHALATION RT-Q2H PRN PRN Reason: Shortness Of Breath Or Wheezing Last Admin: 03/07/18 14:28 Dose: 3 ml Albuterol/Ipratropium (Duoneb 0.5 Mg-3 Mg/3 Ml Soln) 3 ml INHALATION RT-QID [facility] Last Admin: 03/07/18 15:00 Dose: Not Given Amlodipine Besylate (Norvasc) 10 mg PO DAILY [facility] Last Admin: 03/07/18 10:41 Dose: 10 mg Atorvastatin Calcium (Lipitor) 10 mg PO HS [facility] Last Admin: 03/06/18 23:58 Dose: 10 mg Chlorhexidine Gluconate (Peridex) 15 ml MUCOUS MEM BID [facility] Last Admin: 03/07/18 10:38 Dose: 15 ml Clonidine (Catapres) 0.2 mg PO TID [facility] Last Admin: 03/07/18 16:36 Dose: 0.2 mg Darbepoetin Rivera (Aranesp) 40 mcg SQ Q7D [facility] Last Admin: 03/02/18 13:23 Dose: 40 mcg Furosemide (Lasix) 80 mg IV Q12H [facility] Last Admin: 03/07/18 10:39 Dose: 80 mg Gabapentin (Neurontin) 100 mg PO TID [facility] Last Admin: 03/07/18 16:36 Dose: 100 mg Heparin Sodium (Porcine) (Heparin) 5,000 unit SQ Q8HR [facility] Last Admin: 03/07/18 16:36 Dose: 5,000 unit Hydralazine HCl (Apresoline) 40 mg IVP Q6HR PRN PRN Reason: Blood Pressure - High Last Admin: 03/03/18 16:55 Dose: 40 mg Hydralazine HCl (Apresoline) 100 mg PO TID [facility] Last Admin: 03/07/18 16:36 Dose: 100 mg Valproic Acid 750 mg/ Sodium (Chloride) 57.5 mls @ 50 mls/hr IVPB TID [facility] Last Admin: 03/07/18 16:37 Dose: 50 mls/hr Cefepime HCl 1 gm/ Sodium (Chloride) 50 mls @ 100 mls/hr IVPB DAILY@1700 [facility] Last Admin: 03/07/18 16:29 Dose: 100 mls/hr Insulin Aspart (Novolog) 0 unit SQ Q4H [facility]; Protocol Last Admin: 03/07/18 16:24 Dose: 3 unit Labetalol HCl (Trandate) 400 mg PO TID [facility] Last Admin: 03/07/18 16:36 Dose: 400 mg Losartan Potassium (Cozaar) 50 mg PO DAILY [facility] Last Admin: 03/07/18 10:40 Dose: 50 mg Miscellaneous Information (Potassium Per Protocol) 1 each MISCELLANE DAILY PRN ; Protocol PRN Reason: Per Protocol Miscellaneous Information (Magnesium Per Protocol) 1 each MISCELLANE DAILY PRN ; Protocol PRN Reason: Per Protocol Naloxone HCl (Narcan) 0.2 mg IV Q2M PRN PRN Reason: Opioid Reversal Pantoprazole Sodium (Protonix) 40 mg IVP DAILY [facility] Last Admin: 03/07/18 10:40 Dose: 40 mg Tamsulosin HCl (Flomax) 0.4 mg PO DAILY [facility] Last Admin: 03/07/18 10:40 Dose: 0.4 mg Thiamine HCl (Vitamin B-1) 100 mg IVP DAILY [facility] Last Admin: 03/07/18 10:39 Dose: 100 mg 03/10/2018 Maintained on trach collar, without respiratory distress. Unresponsive, no purposeful movements reported. Receiving hemodialysis today. Maintained on IV antibiotics as per infectious disease. Unable to obtain review of systems as patient unresponsive. Active Medications Acetaminophen (Tylenol Tab) 325 mg PO Q6HR PRN PRN Reason: Fever and/ or Mild Pain Last Admin: 03/07/18 17:27 Dose: 325 mg Albuterol/Ipratropium (Duoneb 0.5 Mg-3 Mg/3 Ml Soln) 3 ml INHALATION RT-Q2H PRN PRN Reason: Shortness Of Breath Or Wheezing Last Admin: 03/07/18 14:28 Dose: 3 ml Albuterol/Ipratropium (Duoneb 0.5 Mg-3 Mg/3 Ml Soln) 3 ml INHALATION RT-QID [facility] Last Admin: 03/10/18 15:23 Dose: 3 ml Amlodipine Besylate (Norvasc) 10 mg PO DAILY [facility] Last Admin: 03/10/18 09:04 Dose: 10 mg Atorvastatin Calcium (Lipitor) 10 mg PO HS [facility] Last Admin: 03/09/18 23:09 Dose: 10 mg Chlorhexidine Gluconate (Peridex) 15 ml MUCOUS MEM BID [facility] Last Admin: 03/10/18 09:04 Dose: 15 ml Clonidine (Catapres) 0.2 mg PO TID [facility] Last Admin: 03/10/18 17:20 Dose: Not Given Darbepoetin Rivera (Aranesp) 40 mcg SQ Q7D [facility] Last Admin: 03/09/18 13:39 Dose: 40 mcg Docusate Sodium (Colace Oral Soln) 100 mg PO BID [facility] Last Admin: 03/10/18 09:04 Dose: 100 mg Furosemide (Lasix) 80 mg IV Q12H [facility] Last Admin: 03/10/18 09:05 Dose: 80 mg Gabapentin (Neurontin) 100 mg PO TID [facility] Last Admin: 03/10/18 17:21 Dose: Not Given Heparin Sodium (Porcine) (Heparin) 5,000 unit SQ Q8HR [facility] Last Admin: 03/10/18 09:04 Dose: 5,000 unit Hydralazine HCl (Apresoline) 40 mg IVP Q6HR PRN PRN Reason: Blood Pressure - High Last Admin: 03/03/18 16:55 Dose: 40 mg Hydralazine HCl (Apresoline) 100 mg PO TID [facility] Last Admin: 03/10/18 17:20 Dose: Not Given Valproic Acid 750 mg/ Sodium (Chloride) 57.5 mls @ 50 mls/hr IVPB TID [facility] Last Admin: 03/10/18 09:01 Dose: 50 mls/hr Cefepime HCl 1 gm/ Sodium (Chloride) 50 mls @ 100 mls/hr IVPB DAILY@1700 [facility] Last Admin: 03/09/18 18:09 Dose: 100 mls/hr Insulin Aspart (Novolog) 0 unit SQ Q4H [facility]; Protocol Last Admin: 03/10/18 13:15 Dose: 4 unit Labetalol HCl (Trandate) 400 mg PO TID [facility] Last Admin: 03/10/18 17:21 Dose: Not Given Losartan Potassium (Cozaar) 50 mg PO DAILY [facility] Last Admin: 03/10/18 09:03 Dose: 50 mg Miscellaneous Information (Potassium Per Protocol) 1 each MISCELLANE DAILY PRN ; Protocol PRN Reason: Per Protocol Miscellaneous Information (Magnesium Per Protocol) 1 each MISCELLANE DAILY PRN ; Protocol PRN Reason: Per Protocol Miscellaneous Information (Pharmacy To Dose Iv Vancomycin) 1 each MISCELLANE DIRECTED PRN PRN Reason: Per Protocol Naloxone HCl (Narcan) 0.2 mg IV Q2M PRN PRN Reason: Opioid Reversal Pantoprazole Sodium (Protonix) 40 mg IVP DAILY [facility] Last Admin: 03/10/18 09:02 Dose: 40 mg Tamsulosin HCl (Flomax) 0.4 mg PO DAILY [facility] Last Admin: 03/10/18 09:02 Dose: 0.4 mg Thiamine HCl (Vitamin B-1) 100 mg IVP DAILY [facility] Last Admin: 03/10/18 09:02 Dose: 100 mg Objective - Vital Signs Vital signs: Vital Signs Temp 99.0 F 03/10/18 05:00 Pulse 70 03/10/18 15:39 Resp 18 03/10/18 05:00 BP 137/70 03/10/18 05:00 Pulse Ox 97 03/10/18 15:23 Intake & Output 03/09/18 03/10/18 03/10/18 18:59 06:59 18:59 Intake Total 1460 378 Output Total 100 500 Balance -100 960 378 Weight 73 kg Intake: IV 140 NS 140 Tube Feeding 1320 378 Output: Urine 100 500 Other: Voiding Method Indwelling Catheter Indwelling Catheter Indwelling Catheter ABP, PAP, CO, CI - Last Documented Arterial Blood Pressure 135/56 - Exam -GENERAL: The patient is sitting up in bed, unresponsive HEENT: Conjunctiva normal, no JVD CARDIOVASCULAR: S1 and S2 present. No murmurs, rubs, or gallops. -PULMONARY: Unlabored, clear to auscultation, no wheezing, no crackles. Occasional scattered rhonchi. ABDOMEN: Soft, nontender, nondistended, normoactive bowel sounds. No palpable organomegaly. PEG tube present EXTREMITIES: No cyanosis, clubbing, or pedal edema. -s/p right BKA -NEUROLOGICAL: unresponsive to verbal or painful stinuli, opens eyes spontaneously, not to commands. Spontaneous cough, no gag. Microbiology 03/07/18 20:00 Blood Blood Culture Gram Stain - Preliminary 03/07/18 20:00 Blood Blood Culture - Preliminary Coagulase Negative Staph 03/07/18 17:45 Urine,Catheterized Urine Culture - Final Sirena sp,not albicans/galbr 03/07/18 18:35 Blood Blood Culture - Final 03/01/18 15:15 Catheter Tip Catheter Tip Culture - Final 02/24/18 05:25 Blood Blood Culture - Final No Growth after 144 hours 02/24/18 05:07 Blood Blood Culture - Final No Growth after 144 hours 02/24/18 03:05 Penis Anaerobic Culture - Final Anaerobic Gm Negative Bacilli Anaerobic Gm Negative Bacilli#2 Anaerobic Gram Positive Cocci 02/19/18 23:29 Blood Blood Culture - Final No Growth after 144 hours 02/24/18 05:35 Sputum Gram Stain - Final 02/24/18 05:35 Sputum Sputum Culture - Final Serratia marcescens Staphylococcus aureus 02/24/18 06:07 Urine,Catheterized Urine Culture - Final 02/24/18 03:05 Catheter Site Gram Stain - Final 02/24/18 03:05 Catheter Site Wound Culture - Final 02/20/18 07:55 Sputum Gram Stain - Final 02/20/18 07:55 Sputum Sputum Culture - Final 02/20/18 11:00 Urine,Catheterized Urine Culture - Final - Labs CBC & Chem 7: 03/10/18 11:02 03/10/18 11:02 Labs: Abnormal Lab Results - Last 24 Hours (Table) 03/09/18 03/10/18 03/10/18 Range/Units 20:22 00:07 04:17 RBC (4.30-5.90) m/uL Hgb (13.0-17.5) gm/dL Hct (39.0-53.0) % Lymphocytes # (1.0-4.8) k/uL Sodium (137-145) mmol/L Chloride (98-107) mmol/L BUN (9-20) mg/dL Creatinine (0.66-1.25) mg/dL Glucose (74-99) mg/dL POC Glucose (mg/dL) 236 H 257 H 217 H (75-99) mg/dL 03/10/18 03/10/18 03/10/18 Range/Units 08:06 11:02 11:02 RBC 2.67 L (4.30-5.90) m/uL Hgb 7.9 L (13.0-17.5) gm/dL Hct 24.1 L (39.0-53.0) % Lymphocytes # 0.9 L (1.0-4.8) k/uL Sodium 134 L (137-145) mmol/L Chloride 97 L (98-107) mmol/L BUN 88 H (9-20) mg/dL Creatinine 5.66 H (0.66-1.25) mg/dL Glucose 243 H (74-99) mg/dL POC Glucose (mg/dL) 241 H (75-99) mg/dL 03/10/18 03/10/18 Range/Units 11:50 16:38 RBC (4.30-5.90) m/uL Hgb (13.0-17.5) gm/dL Hct (39.0-53.0) % Lymphocytes # (1.0-4.8) k/uL Sodium (137-145) mmol/L Chloride (98-107) mmol/L BUN (9-20) mg/dL Creatinine (0.66-1.25) mg/dL Glucose (74-99) mg/dL POC Glucose (mg/dL) 267 H 193 H (75-99) mg/dL Assessment and Plan Assessment: -Acute hypoxic respiratory failure: Secondary to congestive heart failure chronic diastolic dysfunction with acute exacerbation patient. Status post mechanical ventilation dependent , currently trach collared. -Episode of seizure believed to be secondary to profound hypoglycemia on admission and encephalopathy EEG showed diffuse slowing. patient has metabolic and toxic encephalopathy -acute on chronic renal failure , receiving hemodialysis -metabolic encephalopathy , possibly secondary to all above -Sepsis with possible tracheobronchitis, positive sputum culture with MSSA and Serratia marcescens. 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 Plan: Continue on current medication regime ,monitoring and symptomatic treatment. Hemodialysis today. Antibiotics as per infectious disease. Telephone Discussion between Dr. Beyer and sister Rashida; sister updated, CODE STATUS and future plans addressed. Sister states she will be here tomorrow to discuss further plans. Maintain supportive care. Prognosis poor. Further recommendations to follow. The impression and plan of care has been dictated as directed. : I performed a history and examination of this patient, discussed the same with the dictator. I agree with the dictator's note ,documented as a scribe. Any additional findings or plans will be noted.
[2018-03-10] MEDS: CEFEPIME 1 GM in SODIUM CHLORIDE 0.9% 50 ML IVPB SCH (19:54)
[2018-03-10 20:16] LABS: Glucose,Whole Blood 203 mg/dL (75-99)
[2018-03-10] MEDS: ATORVASTATIN 10 MG TAB PO SCH (20:25)
[2018-03-11] MEDS: INSULIN ASPART 100 UNIT/ML 1 ML 10 ML VIAL SQ SCH ×6 (00:13→20:08)
[2018-03-11] MEDS: HEPARIN SODIUM,PORCINE 5,000 UNIT/ML 1 ML VIAL SQ SCH ×3 (00:14→17:16)
[2018-03-11 00:26] LABS: Glucose,Whole Blood 299 mg/dL (75-99)
[2018-03-11 04:23] LABS: Glucose,Whole Blood 271 mg/dL (75-99)
[2018-03-11] MEDS: IPRATROPIUM-ALBUTEROL 3 ML NEB INHALATION SCH ×4 (08:01→18:58)
[2018-03-11 08:48] LABS: Glucose,Whole Blood 342 mg/dL (75-99)
[2018-03-11 09:12] LABS: Basophils % (A) 0 %; Eosinophils # (A) 0.1 k/uL (0-0.7); Eosinophils % (A) 2 %; HCT 24.8 % (39.0-53.0); HGB 7.8 gm/dL (13.0-17.5); Hypochromasia Slight; Lymphocytes # (A) 0.9 k/uL (1.0-4.8); Lymphocytes % (A) 14 %; MCH 28.8 pg (25.0-35.0); MCHC 31.6 g/dL (31.0-37.0); MCV 90.9 fL (80.0-100.0); Mean Platelet Volume 7.1; Monocytes # (A) 0.9 k/uL (0-1.0); Monocytes % (A) 14 %; Neutrophils # (A) 4.5 k/uL (1.3-7.7); Neutrophils % (A) 69 %; Platelet Count 360 k/uL (150-450); RBC 2.72 m/uL (4.30-5.90); RDW 14.6 % (11.5-15.5); WBC 6.5 k/uL (3.8-10.6)
[2018-03-11 09:25] LABS: Calcium 8.5 mg/dL (8.4-10.2); Potassium 4.3 mmol/L (3.5-5.1)
[2018-03-11 09:30] LABS: Vancomycin,Random 20.1 ug/mL
[2018-03-11] MEDS: VALPROATE SODIUM 750 MG in SODIUM CHLORIDE 0.9% 50 ML IVPB SCH ×3 (09:36→21:48)
[2018-03-11] MEDS: FUROSEMIDE 10 MG/ML 10 ML VIAL IV SCH ×2 (09:36→20:12)
[2018-03-11] MEDS: cloNIDine HCL 0.2 MG TAB PO SCH ×3 (09:36→21:48)
[2018-03-11] MEDS: GABAPENTIN 100 MG CAP PO SCH ×3 (09:36→21:48)
[2018-03-11] MEDS: amLODIPine 10 MG TAB PO SCH (09:36)
[2018-03-11] MEDS: TAMSULOSIN 0.4 MG CAP.ER.24H PO SCH (09:36)
[2018-03-11] MEDS: hydrALAZINE HCL 50 MG TAB PO SCH ×3 (09:36→21:48)
[2018-03-11] MEDS: LABETALOL 200 MG TAB PO SCH ×3 (09:37→21:47)
[2018-03-11] MEDS: PANTOPRAZOLE 40 MG/10 ML VIAL IVP SCH (09:37)
[2018-03-11] MEDS: DOCUSATE ORAL SOLN 100 MG/10 ML CUP PO SCH ×2 (09:37→20:09)
[2018-03-11] MEDS: THIAMINE 100 MG/ML 2 ML VIAL IVP SCH (09:37)
[2018-03-11] MEDS: CHLORHEXIDINE GLUCONATE 15 ML CUP MUCOUS MEM SCH ×2 (09:38→20:09)
[2018-03-11] MEDS: LOSARTAN 50 MG TAB PO SCH (09:38)
[2018-03-11 12:35] LABS: Glucose,Whole Blood 270 mg/dL (75-99)
[2018-03-11 16:32] LABS: Glucose,Whole Blood 217 mg/dL (75-99)
--- NOTE | 2018-03-11 16:32 | P.PN ---
Subjective Progress Note Date: 03/11/18 Progress note being dictated for Dr. Beyer. Interval history:Patient is a 67-year-old -[place] male who is being followed by the neurology service for possible seizure. Patient was brought to [facility] emergency room with shortness of breath. He was found to have significant pulmonary edema. Patient does have stage IV chronic kidney disease. Patient was being treated in the emergency room when one of the nurses noted patient to be unresponsive. Patient had questionable jerking activity. Patient had significant hypoglycemia in the 20s. He was given D50, intubated and sedated. Patient is currently in the ICU. Computed tomography scan of the brain was done which showed no acute abnormality. Computed tomography scan did show evidence of mild generalized atrophy. Patient was noted to have some rhythmic jerking. Patient was taken off propofol and had an EEG done. EEG showed generalized slowing of the background rhythm. EEG also showed significant triphasic waves which is commonly seen in hepatic pathology. Myoclonic activity was described. Patient was started on Depakote 500 mg every 12 hours IV. Staff reports no further jerking movements since starting Depakote. Patient remains sedated with propofol and on mechanical ventilation. acute kidney injury on chronic kidney disease. Patient has chronic kidney disease stage IV secondary to biopsy-proven diabetic kidney disease with severe chronicity. His baseline creatinine has been in the range of 4-5. Creatinine was 7.65 on admission 02/23/2018 this is my first day taking care of the pt , pt is still on vent , he has been off sedation , however he is still not waking up as expected . pt could have metabolic encephalopathy , vs other . pt with acute on chronic Kidney disease stage IV. nephrology are following the case .Creatinine was 7.65 on admission and is 5.99 today. pt is been seen by neurology who recommended to repeat the EEG and result is pending.pt had subtherapeutic level and extra doses were provided for him yesterday EEG from 02/21: abnormal with significant triphasic waves which is commonly seen in hepatic encephalopahty pt still does not respond to pain stimuli. despite been off sedation since this morning. pupils are equal and reactive to light, meningeal signs were absent when i examined the pt this morning pt has h/o Hep C and B , we will check ammonia level and other work up like B12 ,thyroid function test, syphlis screen ,repeat CT of the head ,with neurology follow up. no fever , no leukocytosis 02/24/2018 no change from yesterday in his mental status from the first time a saw her , still unresponsive , neurologist team is following the pt and recommended repeat EEG. critical care input is appreciated . ammonia level and TSH were negative , repeat CT head is negative for acute process as well 02/25/2018 Patient remains unresponsive as before. Repeat EEG showing moderate encephalopathy, significant triphasic waves consistent with hepatic disease. Occasional sharp wave consistent with due to seizure threshold. But no generalized epileptiform discharge. Patient is a plan to have trach placed on the surgical site. As well as dialysis catheter for dialysis. Patient has Delcid catheter with 40 mL in the bag. There is purulent discharge from the penis. Discussed with staff. Check culture for the discharge, change. AND CHECK BLADDER SCAN 02/26/2018 Patient remains unresponsive, the same. Patient had a dialysis catheter placed. Than his going for hemodialysis currently. Patient has been evaluated by poultry offal worker on their input is appreciated. Patient is planned for going for PEG and tracheostomy possibly tomorrow, as per family wishes. To call care consult is appreciated. He has positive sputum culture was fracture and staphylococcus. urine discharge so there was has been changed. Urine culture is pending. We'll consult infectious diseases specialist. Patient with mild leukocytosis 02/27/2018 No improvement in the patient mental status, he remains unresponsive and intubated. Went for dialysis yesterday and today. And PEG tube with check estimated are planned for the patient's in 1 or 2 days. Prognosis remains very poor. The sputum culture is growing Serratia and staph aureus. ID consult is appreciated and patient was started on cefepime. Also patient got IV vancomycin doses . Pulmonary/critical care input is appreciated. Hemoglobin at 7.1. No leukocytosis. He had fever yesterday at 100.2 02/28/2018 pt is unresponsive, intubated , he is undergoing hemodialysis , and he is on antibiotic , he is responding a little bit to suctioning his mouth but only minimally , prognosis remains poor and guarded. pt had PEG and treacheostomy, he remains on cefepime per ID recommendation . pt has Serratia marcescens and staph aureus. while his penile c/s showing many gr-ve bacilli (areobic and unaerobic) and gram positive cocci (unaerobic) 03/03/2018 Patient is unresponsive, has tracheostomy and PEG tube. His undergoing hemodialysis. He is on antibiotics for infection his respiratory and urinary systems. Patient is smoking a grimace to painful stimuli but no more more than that. Continue with supportive care. Prognosis remains very poor 03/04/2018 No change in mental status of the patient, he remains unresponsive. Status post tracheostomy and PEG tube insertion. Continue with hemo-dialysis. And nephrology team are following the patient Continue with antibiotic. Continue with valproate. Critical care/pulmonary team evaluation and follow-up is appreciated. He is off mechanical ventilation currently and continue with trach collar. Continue with Protonix for GI prophylaxis. Patient has some grimace to painful stimuli, however unresponsive to verbal or tactile stimuli. Neurological evaluation is recommended with some workup like EKG and CAT scan of the brain Review of system: N/a Medication with dosages were reviewed including Tylenol 325 mg, Monica up 0.5-3 mg. Norvasc 10 mg. Lipitor 10 mg. Calcium acetate 667 mg. Ceftriaxone 1000 mg. Chlorhexidine. Clonidine 0.3 mg patch. Lasix 80 mg. Neurontin 100 mg. Heparin 5000 unit. Hydralazine 40 mg. NovoLog sliding scale. Labetalol 400 mg. Narcan 0.2 mg. protonix 40 mg. propofol on hold. sodium bicarb 650 mg. flomax 0.4 mg. thiamine 100 mg. valproic acid 750 mg. 03/05/[address] reporting atrophy. Positive cough with purulent yellow secretions.Gag response absent. Tolerating tube feeds at goal with minimal to no residuals. Sputum cultures reporting Serratia marcescens, MSSA. Afebrile. Maintained on cefepime as per ID. Spontaneously opens eyes, did not witness any movement-flaccid. Not communicating, and does not follow commands. Hypertensive, ARB resumed.Scheduled for hemodialysis today. Repeat EEG yesterday, reported slowing, consistent with mild encephalopathy without epileptiform discharges seen. No seizure activity reported. Chest x-ray reporting volume overload, CHF, uremia, basilar effusions, atelectasis, maintained on IV Lasix. Continues on 30% FiO2 trach collar. 03/06/2018 neurologic condition unchanged. Unresponsive to noxious stimuli. Spontaneously opens eyes, without tracking, does not follow commands. Maintained on trach collar. Positive cough, response. tolerating tube feeds at cough. maintained on iv antibiotics as per infectious disease. Chest x-ray reporting mild pulmonary vascular congestion, left-sided pleural effusion. Lengthy discussion between pulmonary/candy maker helper and family, Dr. Coates and family via phone regarding poor prognosis, given no improvement in mental status. At this time family wishes to maintain full code, discussing no CODE STATUS among themselves. Comfort care/hospice options also discussed. 03/07/2018 maintained on cefepime for sputum with MSSA and Serratia marcescens. Afebrile. Maintained on 30% trach collar, without respiratory distress. Receiving hemodialysis today. Clinical/neurological presentation unchanged- unresponsive. Tolerating tube feeds at goal. Review of systems unable to obtain as patient is unresponsive. Active Medications Acetaminophen (Tylenol Tab) 325 mg PO Q6HR PRN PRN Reason: Fever and/ or Mild Pain Last Admin: 03/07/18 17:27 Dose: 325 mg Albuterol/Ipratropium (Duoneb 0.5 Mg-3 Mg/3 Ml Soln) 3 ml INHALATION RT-Q2H PRN PRN Reason: Shortness Of Breath Or Wheezing Last Admin: 03/07/18 14:28 Dose: 3 ml Albuterol/Ipratropium (Duoneb 0.5 Mg-3 Mg/3 Ml Soln) 3 ml INHALATION RT-QID [facility] Last Admin: 03/07/18 15:00 Dose: Not Given Amlodipine Besylate (Norvasc) 10 mg PO DAILY [facility] Last Admin: 03/07/18 10:41 Dose: 10 mg Atorvastatin Calcium (Lipitor) 10 mg PO HS [facility] Last Admin: 03/06/18 23:58 Dose: 10 mg Chlorhexidine Gluconate (Peridex) 15 ml MUCOUS MEM BID [facility] Last Admin: 03/07/18 10:38 Dose: 15 ml Clonidine (Catapres) 0.2 mg PO TID [facility] Last Admin: 03/07/18 16:36 Dose: 0.2 mg Darbepoetin Rivera (Aranesp) 40 mcg SQ Q7D [facility] Last Admin: 03/02/18 13:23 Dose: 40 mcg Furosemide (Lasix) 80 mg IV Q12H [facility] Last Admin: 03/07/18 10:39 Dose: 80 mg Gabapentin (Neurontin) 100 mg PO TID [facility] Last Admin: 03/07/18 16:36 Dose: 100 mg Heparin Sodium (Porcine) (Heparin) 5,000 unit SQ Q8HR [facility] Last Admin: 03/07/18 16:36 Dose: 5,000 unit Hydralazine HCl (Apresoline) 40 mg IVP Q6HR PRN PRN Reason: Blood Pressure - High Last Admin: 03/03/18 16:55 Dose: 40 mg Hydralazine HCl (Apresoline) 100 mg PO TID [facility] Last Admin: 03/07/18 16:36 Dose: 100 mg Valproic Acid 750 mg/ Sodium (Chloride) 57.5 mls @ 50 mls/hr IVPB TID [facility] Last Admin: 03/07/18 16:37 Dose: 50 mls/hr Cefepime HCl 1 gm/ Sodium (Chloride) 50 mls @ 100 mls/hr IVPB DAILY@1700 [facility] Last Admin: 03/07/18 16:29 Dose: 100 mls/hr Insulin Aspart (Novolog) 0 unit SQ Q4H [facility]; Protocol Last Admin: 03/07/18 16:24 Dose: 3 unit Labetalol HCl (Trandate) 400 mg PO TID [facility] Last Admin: 03/07/18 16:36 Dose: 400 mg Losartan Potassium (Cozaar) 50 mg PO DAILY [facility] Last Admin: 03/07/18 10:40 Dose: 50 mg Miscellaneous Information (Potassium Per Protocol) 1 each MISCELLANE DAILY PRN ; Protocol PRN Reason: Per Protocol Miscellaneous Information (Magnesium Per Protocol) 1 each MISCELLANE DAILY PRN ; Protocol PRN Reason: Per Protocol Naloxone HCl (Narcan) 0.2 mg IV Q2M PRN PRN Reason: Opioid Reversal Pantoprazole Sodium (Protonix) 40 mg IVP DAILY [facility] Last Admin: 03/07/18 10:40 Dose: 40 mg Tamsulosin HCl (Flomax) 0.4 mg PO DAILY [facility] Last Admin: 03/07/18 10:40 Dose: 0.4 mg Thiamine HCl (Vitamin B-1) 100 mg IVP DAILY [facility] Last Admin: 03/07/18 10:39 Dose: 100 mg 03/10/2018 Maintained on trach collar, without respiratory distress. Unresponsive, no purposeful movements reported. Receiving hemodialysis today. Maintained on IV antibiotics as per infectious disease. Unable to obtain review of systems as patient unresponsive. Active Medications Acetaminophen (Tylenol Tab) 325 mg PO Q6HR PRN PRN Reason: Fever and/ or Mild Pain Last Admin: 03/07/18 17:27 Dose: 325 mg Albuterol/Ipratropium (Duoneb 0.5 Mg-3 Mg/3 Ml Soln) 3 ml INHALATION RT-Q2H PRN PRN Reason: Shortness Of Breath Or Wheezing Last Admin: 03/07/18 14:28 Dose: 3 ml Albuterol/Ipratropium (Duoneb 0.5 Mg-3 Mg/3 Ml Soln) 3 ml INHALATION RT-QID [facility] Last Admin: 03/10/18 15:23 Dose: 3 ml Amlodipine Besylate (Norvasc) 10 mg PO DAILY [facility] Last Admin: 03/10/18 09:04 Dose: 10 mg Atorvastatin Calcium (Lipitor) 10 mg PO HS [facility] Last Admin: 03/09/18 23:09 Dose: 10 mg Chlorhexidine Gluconate (Peridex) 15 ml MUCOUS MEM BID [facility] Last Admin: 03/10/18 09:04 Dose: 15 ml Clonidine (Catapres) 0.2 mg PO TID [facility] Last Admin: 03/10/18 17:20 Dose: Not Given Darbepoetin Rivera (Aranesp) 40 mcg SQ Q7D [facility] Last Admin: 03/09/18 13:39 Dose: 40 mcg Docusate Sodium (Colace Oral Soln) 100 mg PO BID [facility] Last Admin: 03/10/18 09:04 Dose: 100 mg Furosemide (Lasix) 80 mg IV Q12H [facility] Last Admin: 03/10/18 09:05 Dose: 80 mg Gabapentin (Neurontin) 100 mg PO TID [facility] Last Admin: 03/10/18 17:21 Dose: Not Given Heparin Sodium (Porcine) (Heparin) 5,000 unit SQ Q8HR [facility] Last Admin: 03/10/18 09:04 Dose: 5,000 unit Hydralazine HCl (Apresoline) 40 mg IVP Q6HR PRN PRN Reason: Blood Pressure - High Last Admin: 03/03/18 16:55 Dose: 40 mg Hydralazine HCl (Apresoline) 100 mg PO TID [facility] Last Admin: 03/10/18 17:20 Dose: Not Given Valproic Acid 750 mg/ Sodium (Chloride) 57.5 mls @ 50 mls/hr IVPB TID [facility] Last Admin: 03/10/18 09:01 Dose: 50 mls/hr Cefepime HCl 1 gm/ Sodium (Chloride) 50 mls @ 100 mls/hr IVPB DAILY@1700 [facility] Last Admin: 03/09/18 18:09 Dose: 100 mls/hr Insulin Aspart (Novolog) 0 unit SQ Q4H [facility]; Protocol Last Admin: 03/10/18 13:15 Dose: 4 unit Labetalol HCl (Trandate) 400 mg PO TID [facility] Last Admin: 03/10/18 17:21 Dose: Not Given Losartan Potassium (Cozaar) 50 mg PO DAILY [facility] Last Admin: 03/10/18 09:03 Dose: 50 mg Miscellaneous Information (Potassium Per Protocol) 1 each MISCELLANE DAILY PRN ; Protocol PRN Reason: Per Protocol Miscellaneous Information (Magnesium Per Protocol) 1 each MISCELLANE DAILY PRN ; Protocol PRN Reason: Per Protocol Miscellaneous Information (Pharmacy To Dose Iv Vancomycin) 1 each MISCELLANE DIRECTED PRN PRN Reason: Per Protocol Naloxone HCl (Narcan) 0.2 mg IV Q2M PRN PRN Reason: Opioid Reversal Pantoprazole Sodium (Protonix) 40 mg IVP DAILY [facility] Last Admin: 03/10/18 09:02 Dose: 40 mg Tamsulosin HCl (Flomax) 0.4 mg PO DAILY [facility] Last Admin: 03/10/18 09:02 Dose: 0.4 mg Thiamine HCl (Vitamin B-1) 100 mg IVP DAILY [facility] Last Admin: 03/10/18 09:02 Dose: 100 mg 03/11/2018 remains unresponsive. Tolerating trach collar without respiratory distress. assembly worker met with patient's sister Rashida, who is going to petition for guardianship. Request CODE STATUS be changed to DO NOT RESUSCITATE. Patient unresponsive, Unable to obtain review of systems. Active Medications Generic Name Dose Route Start Last Admin Trade Name Freq PRN Reason Stop Dose Admin Acetaminophen 325 mg 02/24/18 12:11 03/07/18 17:27 Tylenol Tab PO 325 mg Q6HR PRN Administration Fever and/ or Mild Pain Albuterol/Ipratropium 3 ml 02/20/18 12:13 03/07/18 14:28 Duoneb 0.5 Mg-3 Mg/3 Ml Soln INHALATION 3 ml RT-Q2H PRN Administration Shortness Of Breath Or Wheezing Albuterol/Ipratropium 3 ml 03/05/18 08:00 03/11/18 15:26 Duoneb 0.5 Mg-3 Mg/3 Ml Soln INHALATION 3 ml RT-QID [facility] Administration Amlodipine Besylate 10 mg 02/21/18 10:30 03/11/18 09:36 Norvasc PO 10 mg DAILY [facility] Administration Atorvastatin Calcium 10 mg 02/20/18 21:00 03/10/18 20:25 Lipitor PO 10 mg HS [facility] Administration Chlorhexidine Gluconate 15 ml 02/20/18 16:26 03/11/18 09:38 Peridex MUCOUS MEM 15 ml BID [facility] Administration Clonidine 0.2 mg 03/03/18 11:00 03/11/18 09:36 Catapres PO 0.2 mg TID [facility] Administration Darbepoetin Rivera 40 mcg 03/02/18 12:00 03/09/18 13:39 Aranesp SQ 40 mcg Q7D [facility] Administration Docusate Sodium 100 mg 03/09/18 21:00 03/11/18 09:37 Colace Oral Soln PO 100 mg BID [facility] Administration Furosemide 80 mg 02/23/18 21:00 03/11/18 09:36 Lasix IV 80 mg Q12H [facility] Administration Gabapentin 100 mg 02/20/18 16:00 03/11/18 09:36 Neurontin PO 100 mg TID [facility] Administration Heparin Sodium (Porcine) 5,000 unit 02/20/18 16:00 03/11/18 09:37 Heparin SQ 5,000 unit Q8HR [facility] Administration Hydralazine HCl 40 mg 02/24/18 09:09 03/03/18 16:55 Apresoline IVP 40 mg Q6HR PRN Administration Blood Pressure - High Hydralazine HCl 100 mg 03/03/18 11:00 03/11/18 09:36 Apresoline PO 100 mg TID [facility] Administration Valproic Acid 750 mg/ Sodium 57.5 mls @ 50 mls/hr 02/24/18 16:00 03/11/18 09: 36 Chloride IVPB 50 mls/hr TID [facility] Administration Vancomycin HCl 1,500 mg/ 250 mls @ 125 mls/hr 03/11/18 18:00 Sodium Chloride IVPB 03/11/18 19:59 ONCE ONE Insulin Aspart 0 unit 02/22/18 16:00 03/11/18 12:57 Novolog SQ 4 unit Q4H [facility] Administration Protocol Labetalol HCl 400 mg 02/21/18 10:30 03/11/18 09:37 Trandate PO 400 mg TID [facility] Administration Losartan Potassium 50 mg 03/05/18 09:15 03/11/18 09:38 Cozaar PO 50 mg DAILY [facility] Administration Miscellaneous Information 1 each 03/05/18 05:35 Potassium Per Protocol MISCELLANE DAILY PRN Per Protocol Protocol Miscellaneous Information 1 each 03/06/18 06:23 Magnesium Per Protocol MISCELLANE DAILY PRN Per Protocol Protocol Miscellaneous Information 1 each 03/08/18 19:49 Pharmacy To Dose Iv Vancomycin MISCELLANE DIRECTED PRN Per Protocol Naloxone HCl 0.2 mg 02/20/18 02:10 Narcan IV Q2M PRN Opioid Reversal Pantoprazole Sodium 40 mg 03/04/18 09:00 03/11/18 09:37 Protonix IVP 40 mg DAILY [facility] Administration Tamsulosin HCl 0.4 mg 02/20/18 09:00 03/11/18 09:36 Flomax PO 0.4 mg DAILY [facility] Administration Thiamine HCl 100 mg 02/23/18 14:30 03/11/18 09:37 Vitamin B-1 IVP 100 mg DAILY [facility] Administration Objective - Vital Signs Vital signs: Vital Signs Temp 98.3 F 03/11/18 13:00 Pulse 72 03/11/18 15:53 Resp 16 03/11/18 13:00 BP 125/68 03/11/18 13:00 Pulse Ox 98 03/11/18 15:27 Intake & Output 03/10/18 03/11/18 03/11/18 18:59 06:59 18:59 Intake Total 378 724 Output Total 500 Balance -122 724 Weight 74 kg 74 kg Intake: IV 180 Cefepime 1 gm In Sodium 50 Chloride 0.9% 50 ml @ 100 mls/hr IVPB DAILY@1700 [facility] Rx#:[id number] NS 80 Valproate Sodium 750 mg 50 In Sodium Chloride 0.9% 50 ml @ 50 mls/hr IVPB TID [facility] Rx#:[id number] Intake, IV Titration 40 Amount Sodium Chloride 0.9% 500 40 ml @ 0 mls/hr IV [facility] Rx#:[id number] Tube Feeding 378 504 Output: Urine 500 Uretheral (Delcid) 500 Other: Voiding Method Indwelling Catheter Indwelling Catheter ABP, PAP, CO, CI - Last Documented Arterial Blood Pressure 135/56 - Exam -GENERAL: The patient is sitting up in bed, unresponsive HEENT: Conjunctiva normal, no JVD CARDIOVASCULAR: S1 and S2 present. No murmurs, rubs, or gallops. -PULMONARY: Essentially clear to auscultation, no wheezing, no crackles. Occasional scattered rhonchi. ABDOMEN: Soft, nontender, nondistended, normoactive bowel sounds. No palpable organomegaly. PEG tube present EXTREMITIES: No cyanosis, clubbing, or pedal edema. -s/p right BKA -NEUROLOGICAL: unresponsive to verbal or painful stinuli, opens eyes spontaneously, not to commands. Spontaneous cough, no gag. Microbiology 03/07/18 20:00 Blood Blood Culture Gram Stain - Final 03/07/18 20:00 Blood Blood Culture - Final Staph schleiferi SS coagulans 03/07/18 17:45 Urine,Catheterized Urine Culture - Final Sirena sp,not albicans/galbr 03/07/18 18:35 Blood Blood Culture - Final 03/01/18 15:15 Catheter Tip Catheter Tip Culture - Final 02/24/18 05:25 Blood Blood Culture - Final No Growth after 144 hours 02/24/18 05:07 Blood Blood Culture - Final No Growth after 144 hours 02/24/18 03:05 Penis Anaerobic Culture - Final Anaerobic Gm Negative Bacilli Anaerobic Gm Negative Bacilli#2 Anaerobic Gram Positive Cocci 02/19/18 23:29 Blood Blood Culture - Final No Growth after 144 hours 02/24/18 05:35 Sputum Gram Stain - Final 02/24/18 05:35 Sputum Sputum Culture - Final Serratia marcescens Staphylococcus aureus 02/24/18 06:07 Urine,Catheterized Urine Culture - Final 02/24/18 03:05 Catheter Site Gram Stain - Final 02/24/18 03:05 Catheter Site Wound Culture - Final 02/20/18 07:55 Sputum Gram Stain - Final 02/20/18 07:55 Sputum Sputum Culture - Final 02/20/18 11:00 Urine,Catheterized Urine Culture - Final - Labs CBC & Chem 7: 03/11/18 08:28 03/11/18 08:59 Labs: Abnormal Lab Results - Last 24 Hours (Table) 03/10/18 03/10/18 03/11/18 Range/Units 16:38 20:14 00:06 RBC (4.30-5.90) m/uL Hgb (13.0-17.5) gm/dL Hct (39.0-53.0) % Lymphocytes # (1.0-4.8) k/uL Sodium (137-145) mmol/L Chloride (98-107) mmol/L Carbon Dioxide (22-30) mmol/L BUN (9-20) mg/dL Creatinine (0.66-1.25) mg/dL Glucose (74-99) mg/dL POC Glucose (mg/dL) 193 H 203 H 299 H (75-99) mg/dL 03/11/18 03/11/18 03/11/18 Range/Units 04:14 08:28 08:48 RBC 2.72 L (4.30-5.90) m/uL Hgb 7.8 L (13.0-17.5) gm/dL Hct 24.8 L (39.0-53.0) % Lymphocytes # 0.9 L (1.0-4.8) k/uL Sodium (137-145) mmol/L Chloride (98-107) mmol/L Carbon Dioxide (22-30) mmol/L BUN (9-20) mg/dL Creatinine (0.66-1.25) mg/dL Glucose (74-99) mg/dL POC Glucose (mg/dL) 271 H 342 H (75-99) mg/dL 03/11/18 03/11/18 Range/Units 08:59 12:23 RBC (4.30-5.90) m/uL Hgb (13.0-17.5) gm/dL Hct (39.0-53.0) % Lymphocytes # (1.0-4.8) k/uL Sodium 131 L (137-145) mmol/L Chloride 95 L (98-107) mmol/L Carbon Dioxide 20 L (22-30) mmol/L BUN 60 H (9-20) mg/dL Creatinine 3.97 H (0.66-1.25) mg/dL Glucose 297 H (74-99) mg/dL POC Glucose (mg/dL) 270 H (75-99) mg/dL Microbiology - Last 24 Hours (Table) 03/07/18 20:00 Blood Culture Gram Stain - Final Blood Blood Culture - Final Staph schleiferi SS coagulans Assessment and Plan Assessment: -Acute hypoxic respiratory failure: Secondary to congestive heart failure chronic diastolic dysfunction with acute exacerbation patient. Status post mechanical ventilation dependent , currently trach collared. -Episode of seizure believed to be secondary to profound hypoglycemia on admission and encephalopathy EEG showed diffuse slowing. patient has metabolic and toxic encephalopathy -acute on chronic renal failure , receiving hemodialysis -metabolic encephalopathy , possibly secondary to all above -Sepsis with possible tracheobronchitis, positive sputum culture with MSSA and Serratia marcescens. Blood cultures positive for staph Schleiferi SS. 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 -No code, no CPR, no intubation as requested per sister. Plan: Continue on current medication regime ,monitoring and symptomatic treatment. CODE STATUS changed to no code, no CPR, no intubation as per request of sister Rashida. Rashida is petitioning for legal guardianship tomorrow. Hemodialysis as per nephrology. Antibiotics as per infectious disease. Maintain supportive care. Prognosis poor. Further recommendations to follow. The impression and plan of care has been dictated as directed. : I performed a history and examination of this patient, discussed the same with the dictator. I agree with the dictator's note ,documented as a scribe. Any additional findings or plans will be noted.
[2018-03-11] MEDS: VANCOMYCIN 1,500 MG in SODIUM CHLORIDE 0.9% 250 ML IVPB ONE ×2 (17:31→19:19)
[2018-03-11 20:05] LABS: Glucose,Whole Blood 251 mg/dL (75-99)
[2018-03-11] MEDS: ATORVASTATIN 10 MG TAB PO SCH (20:09)
--- NOTE | 2018-03-11 21:30 | PN ---
PROGRESS NOTE Patient is seen for followup for end-stage renal disease. He will be dialyzed today. He remains on a trach collar and remains unresponsive. EXAMINATION: This morning blood pressure was 163/78, heart rate of 74 per minute. Patient is afebrile. Examination of the heart: S1, S2. Examination of the lungs: Bilateral breath sounds are heard. Abdomen is soft, nontender. Examination lower extremities shows right BKA, 1+ edema in left lower extremity. The patient also has some edema in his upper extremities. He is not moving his limbs. LAB: Show sodium 131, potassium 4.3, hemoglobin was 7.8 g/dL. ASSESSMENT: 1. End-stage renal disease, currently maintained on hemodialysis. We will continue with the dialysis treatments for now. 2. Hypertension, currently much better controlled. Continue with Cozaar. 3. Mild volume overload. We will plan for about 2-3 L of ultrafiltration today with hemodialysis. 4. Encephalopathy, most likely secondary to profound hypoglycemia on initial admission. 5. Status post vent dependent respiratory failure. Currently patient remains on trach collar. PLAN: The hemodialysis today. Overall prognosis is poor. Further discussion with family regarding code status as per primary service. MMODL / IJN: [id number] /
--- NOTE | 2018-03-11 22:03 | PN ---
PROGRESS NOTE DATE OF SERVICE: 03/11/2018. REASON FOR FOLLOWUP: 1. MSSA and Serratia marcescens pneumonia. 2. Positive blood culture. INTERVAL HISTORY: The patient is currently afebrile. His mentation remains to be an issue as the patient remains to be unresponsive and unable to provide any history. He has been hemodynamically stable, breathing comfortably, tolerating his tube feeds. No significant diarrhea. Reported by the nursing staff. EXAMINATION: Blood pressure 104/53 with a pulse of 75, temperature 98.2. He is 96% on trach collar. General description is an elderly male lying in bed in no distress. RESPIRATORY SYSTEM: Unlabored breathing, coarse breath sounds bilaterally. No wheeze. HEART: S1, S2. Regular rate. ABDOMEN: Soft, no tenderness. LABS: Hemoglobin 7.8, white count 6.5, BUN of 16, creatinine 3.97. was 20.1. DIAGNOSTIC IMPRESSION AND PLAN: 1. Patient with MSSA and Serratia marcescens pneumonia that has been adequately treated. 2. Patient with a positive blood cultures with coagulase-negative staff in patient who does have a pulmonary catheter for dialysis and he did have a low-grade fever. He is currently on Vanco and that will be continued. Repeat blood culture has been ordered from the [facility] as well as peripherally. Continue supportive care. MMODL / IJN: [id number] /
[2018-03-12 00:02] LABS: Glucose,Whole Blood 228 mg/dL (75-99)
[2018-03-12] MEDS: INSULIN ASPART 100 UNIT/ML 1 ML 10 ML VIAL SQ SCH ×6 (00:19→21:58)
[2018-03-12] MEDS: HEPARIN SODIUM,PORCINE 5,000 UNIT/ML 1 ML VIAL SQ SCH ×4 (00:19→23:13)
[2018-03-12 04:38] LABS: Glucose,Whole Blood 226 mg/dL (75-99)
[2018-03-12 07:53] LABS: Glucose,Whole Blood 225 mg/dL (75-99)
[2018-03-12] MEDS: IPRATROPIUM-ALBUTEROL 3 ML NEB INHALATION SCH ×4 (08:13→20:37)
[2018-03-12] MEDS: PANTOPRAZOLE 40 MG/10 ML VIAL IVP SCH (08:26)
[2018-03-12] MEDS: THIAMINE 100 MG/ML 2 ML VIAL IVP SCH (08:27)
[2018-03-12] MEDS: VALPROATE SODIUM 750 MG in SODIUM CHLORIDE 0.9% 50 ML IVPB SCH ×3 (08:34→22:49)
[2018-03-12 09:09] LABS: Basophils % (A) 0 %; Eosinophils # (A) 0.2 k/uL (0-0.7); Eosinophils % (A) 2 %; HCT 23.4 % (39.0-53.0); HGB 7.6 gm/dL (13.0-17.5); Lymphocytes # (A) 1.3 k/uL (1.0-4.8); Lymphocytes % (A) 16 %; MCHC 32.3 g/dL (31.0-37.0); Mean Platelet Volume 8.2; Monocytes # (A) 0.8 k/uL (0-1.0); Monocytes % (A) 10 %; Neutrophils # (A) 5.8 k/uL (1.3-7.7); Neutrophils % (A) 71 %; Platelet Count 333 k/uL (150-450); RDW 14.5 % (11.5-15.5); WBC 8.2 k/uL (3.8-10.6)
[2018-03-12 09:59] LABS: Calcium 8.6 mg/dL (8.4-10.2); Potassium 4.5 mmol/L (3.5-5.1)
[2018-03-12] MEDS: CHLORHEXIDINE GLUCONATE 15 ML CUP MUCOUS MEM SCH ×2 (10:15→23:12)
[2018-03-12] MEDS: FUROSEMIDE 10 MG/ML 10 ML VIAL IV SCH (10:15)
[2018-03-12] MEDS: DOCUSATE ORAL SOLN 100 MG/10 ML CUP PO SCH ×2 (10:15→23:12)
[2018-03-12] MEDS: TAMSULOSIN 0.4 MG CAP.ER.24H PO SCH (10:16)
[2018-03-12] MEDS: cloNIDine HCL 0.2 MG TAB PO SCH ×3 (10:16→23:12)
[2018-03-12] MEDS: amLODIPine 10 MG TAB PO SCH (10:16)
[2018-03-12] MEDS: LABETALOL 200 MG TAB PO SCH ×3 (10:16→23:12)
[2018-03-12] MEDS: GABAPENTIN 100 MG CAP PO SCH ×3 (10:16→23:12)
[2018-03-12] MEDS: LOSARTAN 50 MG TAB PO SCH (10:17)
[2018-03-12] MEDS: hydrALAZINE HCL 50 MG TAB PO SCH ×3 (10:17→23:12)
[2018-03-12 10:21] LABS: Poikilocytosis (M) Present
[2018-03-12 10:59] LABS: Glucose,Whole Blood 217 mg/dL (75-99)
--- NOTE | 2018-03-12 13:55 | PN ---
PROGRESS NOTE DATE OF SERVICE: 03/12/2018 This is a 67-year-old gentleman who was admitted with acute hypoxic respiratory failure also had episode of seizure. Patient also had metabolic encephalopathy. Patient is being closely monitored. Patient has tracheostomy. Patient also receiving hemodialysis at this time. The PT, OT is evaluating the patient also. Social workers are also evaluating the patient and Rashida is next of kin, the patient's sister who is opting for public legal guardianship at this time. PAST MEDICAL HISTORY: Reviewed. REVIEW OF SYSTEMS: Could not be taken. CURRENT MEDICATIONS ARE REVIEWED, INCLUDE: 1. Tylenol 325 mg q.6 p.r.n. 2. DuoNeb q.i.d. and p.r.n. 3. Norvasc 10 mg p.o. daily. 4. Lipitor 10 mg p.o. q.h.s. 5. Catapres 0.2 t.i.d. 6. Aranesp 40 mg 7 days. 7. Colace. 8. Lasix 80 mg IV b.i.d. 9. Neurontin 100 mg p.o. t.i.d. 10.Heparin subcu q.8h. 11.Apresoline 100 mg p.o. t.i.d. 12.Trandate. 13.Cozaar 50 mg p.o. daily. 14.Protonix. 15.Vitamin B1. 16.Valproic acid. PHYSICAL EXAM: Patient is alert and oriented x3. Pulse 72, blood pressure is 170/62, respirations 16, temp is normal, pulse ox 96% on room air. HEENT: Conjunctivae normal. Oral mucosa moist. Neck is no jugular venous distention. No lymph node enlargement. CARDIOVASCULAR: S1, S2, muffled. RESPIRATORY: Breath sounds diminished at the bases, a few scattered rhonchi, no crackles. ABDOMEN: Soft, nontender. No mass palpable. LEGS: No edema, no swelling. NERVOUS SYSTEM: Diffusely weak. LABS: WBC 8.2, hemoglobin is 7.6, sodium 132, creatinine 5.13. ASSESSMENT: 1. Acute hypoxic respiratory failure secondary to congestive heart failure acute exacerbation, acute on chronic diastolic dysfunction, status post mechanical ventilation and status post tracheal collar. 2. History of seizures, secondary to hypoglycemia. 3. Change in mental status, acute metabolic encephalopathy secondary to hypoglycemia. 4. Acute on chronic renal failure on hemodialysis. 5. Sepsis with tracheobronchitis with methicillin-sensitive Staphylococcus aureus and Serratia marcescens. 6. Chronic kidney stage IV to stage V. 7. Peripheral vascular disease. 8. 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 9. Hepatitis C and B with chronic liver disease. 10.Hyperlipidemia. 11.NO CODE, NO CARDIOVASCULAR RESUSCITATION, NO VENTILATOR. RECOMMENDATIONS AND DISCUSSION: Recommend to continue current management and continue symptomatic treatment. Otherwise, at this time I would recommend to continue with hemodialysis. Continue the rest of the medications, bronchodilators, PT, OT evaluation, possible ECF rehab. Otherwise, we will continue to monitor. Prognosis guarded and as mentioned earlier, the patient is currently NO CODE, NO CPR, discussed with Rashida, who is a sister and the case management social worker is working towards obtaining a public legal guardianship also. Further recommendations to follow. MMODL / IJN: [id number] /
[2018-03-12 16:34] LABS: Glucose,Whole Blood 179 mg/dL (75-99)
[2018-03-12 20:22] LABS: Glucose,Whole Blood 228 mg/dL (75-99)
--- NOTE | 2018-03-12 22:07 | PN ---
PROGRESS NOTE Patient is seen for followup for end-stage renal disease. He is currently dialyzed on a Saturday, Saturday, Saturday schedule. Overall general condition remains the same. The patient is not responding to any verbal stimuli or painful stimuli. PHYSICAL EXAMINATION: Blood pressure this morning 117/62, heart rate 69 per minute. He is afebrile. Examination of the heart S1, S2. Examination lungs bilateral breath sounds are heard. Patient is maintained on a trach collar. Examination lower extremities shows right BKA. Trace edema noted on his left lower extremity. LABS SHOW: Sodium 132, potassium 4.5, hemoglobin 7.6 g/dL. ASSESSMENT: 1. End-stage renal disease, currently maintained on a Saturday, Saturday, Saturday schedule for dialysis. 2. Hypertension, initially uncontrolled, currently much better controlled. Blood pressure is actually slightly on the lower side. I will decrease the hydralazine to 50 mg t.i.d. Continue with the Cozaar for now. 3. Anemia of chronic disease maintained on Aranesp. No active bleeding noted currently. 4. Severe encephalopathy secondary to profound hypoglycemia on initial admission. PLAN: Maintain dialysis on a Saturday, Saturday, Saturday schedule. Decrease hydralazine to 50 mg t.i.d. MMODL / IJN: [id number] /
--- NOTE | 2018-03-12 22:43 | PN ---
PROGRESS NOTE DATE OF SERVICE: 03/12/2018 REASON FOR FOLLOWUP: 1. Pneumonia, adequately treated. 2. Positive blood culture. INTERVAL HISTORY: The patient is currently afebrile. He is hemodynamically stable. He is breathing comfortably on a trach collar, tolerating his tube feeds. No diarrhea. Mentation remains an issue. He was not able to provide any history. PHYSICAL EXAMINATION: Blood pressure 117/62 with a pulse of 69, temperature 98. He is 96% on room air. General description is an elderly male lying in bed in no distress. RESPIRATORY SYSTEM: Unlabored breathing with decreased breath sounds at the bases. No wheeze. HEART: S1, S2. Regular rate and rhythm. ABDOMEN: Soft. No tenderness. LABS: Hemoglobin 7.3, white count 8.2, BUN of 83, creatinine 5.13. Blood culture repeat is so far negative. DIAGNOSTIC IMPRESSION AND PLAN: 1. Patient with methicillin-susceptible Staphylococcus aeruginosa and Serratia marcescens pneumonia, adequately treated. 2. Positive blood culture with Staph in a patient who does have a PermCath. Blood culture has been repeated. Currently on vancomycin, to continue for now. Continue with supportive care. MMODL / IJN: [id number] /
[2018-03-12] MEDS: ATORVASTATIN 10 MG TAB PO SCH (23:12)
[2018-03-12 23:59] LABS: Glucose,Whole Blood 276 mg/dL (75-99)
[2018-03-13] MEDS: FUROSEMIDE 10 MG/ML 10 ML VIAL IV SCH ×3 (00:33→21:57)
[2018-03-13] MEDS: INSULIN ASPART 100 UNIT/ML 1 ML 10 ML VIAL SQ SCH ×6 (00:36→21:30)
[2018-03-13 04:12] LABS: Glucose,Whole Blood 260 mg/dL (75-99)
[2018-03-13] MEDS: IPRATROPIUM-ALBUTEROL 3 ML NEB INHALATION SCH ×4 (07:09→19:30)
[2018-03-13 07:47] LABS: Glucose,Whole Blood 231 mg/dL (75-99)
[2018-03-13 08:49] LABS: Basophils % (A) 0 %; Eosinophils # (A) 0.1 k/uL (0-0.7); Eosinophils % (A) 2 %; HCT 23.7 % (39.0-53.0); HGB 7.5 gm/dL (13.0-17.5); Hypochromasia Slight; Lymphocytes # (A) 0.8 k/uL (1.0-4.8); Lymphocytes % (A) 13 %; MCH 28.8 pg (25.0-35.0); MCHC 31.7 g/dL (31.0-37.0); MCV 90.9 fL (80.0-100.0); Monocytes # (A) 0.7 k/uL (0-1.0); Monocytes % (A) 12 %; Neutrophils # (A) 4.3 k/uL (1.3-7.7); Neutrophils % (A) 73 %; Platelet Count 378 k/uL (150-450); RBC 2.61 m/uL (4.30-5.90); RDW 14.7 % (11.5-15.5); WBC 5.9 k/uL (3.8-10.6)
[2018-03-13 09:03] LABS: Calcium 8.8 mg/dL (8.4-10.2); Potassium 3.8 mmol/L (3.5-5.1)
[2018-03-13 09:08] LABS: Vancomycin,Random 24.9 ug/mL
[2018-03-13] MEDS: CHLORHEXIDINE GLUCONATE 15 ML CUP MUCOUS MEM SCH ×2 (09:47→21:57)
[2018-03-13] MEDS: amLODIPine 10 MG TAB PO SCH (09:47)
[2018-03-13] MEDS: DOCUSATE ORAL SOLN 100 MG/10 ML CUP PO SCH ×2 (09:48→21:57)
[2018-03-13] MEDS: cloNIDine HCL 0.2 MG TAB PO SCH ×3 (09:48→21:57)
[2018-03-13] MEDS: GABAPENTIN 100 MG CAP PO SCH ×3 (09:50→21:57)
[2018-03-13] MEDS: hydrALAZINE HCL 50 MG TAB PO SCH ×3 (09:51→21:57)
[2018-03-13] MEDS: LABETALOL 200 MG TAB PO SCH ×3 (09:51→21:57)
[2018-03-13] MEDS: THIAMINE 100 MG/ML 2 ML VIAL IVP SCH (09:52)
[2018-03-13] MEDS: TAMSULOSIN 0.4 MG CAP.ER.24H PO SCH (09:52)
[2018-03-13] MEDS: PANTOPRAZOLE 40 MG/10 ML VIAL IVP SCH (09:52)
[2018-03-13] MEDS: LOSARTAN 50 MG TAB PO SCH (09:52)
[2018-03-13] MEDS: HEPARIN SODIUM,PORCINE 5,000 UNIT/ML 1 ML VIAL SQ SCH ×2 (09:56→18:17)
[2018-03-13 11:05] LABS: Glucose,Whole Blood 245 mg/dL (75-99)
[2018-03-13] MEDS: VALPROATE SODIUM 750 MG in SODIUM CHLORIDE 0.9% 50 ML IVPB SCH ×3 (12:21→21:58)
[2018-03-13 16:48] LABS: Glucose,Whole Blood 214 mg/dL (75-99)
--- NOTE | 2018-03-13 17:37 | PN ---
PROGRESS NOTE DATE OF SERVICE: 03/13/2018 REASON FOR FOLLOWUP: 1. Pneumonia, adequately treated. 2. Positive blood culture. INTERVAL HISTORY: The patient is currently afebrile. He is hemodynamically stable. He is breathing comfortably. No nausea, vomiting or intolerance to tube feeding has been recorded or any diarrhea. Unable to provide any history. PHYSICAL EXAMINATION: Blood pressure 122/62 with a pulse of 66, temperature 96.9. He is 99% on room air. General description is an elderly male lying in bed in no distress. RESPIRATORY SYSTEM: Unlabored breathing. Clear to auscultation anteriorly. HEART: S1, S2. Regular rate and rhythm. ABDOMEN: Soft. No tenderness. LABS: Hemoglobin 7.5, white count 5.9, BUN of 57, creatinine 4.02. Blood culture repeat on 03/11 has been negative. DIAGNOSTIC IMPRESSION AND PLAN: 1. Patient with methicillin-susceptible Staphylococcus aeruginosa and Serratia marcescens pneumonia that has been adequately treated. 2. Positive blood culture in a patient who did have a right subclavian catheter for dialysis. his 7- to 10-day course of vancomycin and then discontinue, especially if the follow-up blood culture is negative. Continue with supportive care. MMODL / IJN: [id number] /
[2018-03-13 20:04] LABS: Glucose,Whole Blood 226 mg/dL (75-99)
--- NOTE | 2018-03-13 21:47 | PN ---
PROGRESS NOTE The patient is seen for followup for end-stage renal disease. He is maintained on a Saturday, Saturday, Saturday schedule. This morning there was no change in his mentation again. The 24 hour urine output was about 1 L. PHYSICAL EXAMINATION: Blood pressure was 122/62, heart rate is 72 per minute. Patient is afebrile. Examination of the heart S1, S2. Examination of lungs bilateral breath sounds are heard. Abdomen is soft, nontender. Examination of lower extremity shows right BKA. No significant edema noted on his left lower extremity. LABS SHOW: Sodium 134, potassium 3.8, hemoglobin of 7.5 g/dL. ASSESSMENT: 1. End-stage renal disease, currently on hemodialysis on a Saturday, Saturday, Saturday schedule. 2. Encephalopathy with severe obtundation. No improvement in mentation. 3. Status post acute hypoxic respiratory failure, currently with trach collar. 4. Serratia and staphylococcus aureus bacteremia currently resolved. PLAN: Hemodialysis in a.m. Overall prognosis is poor. Continue with the Aranesp. Continue with the Lasix. MMODL / IJN: [id number] /
[2018-03-13] MEDS: ATORVASTATIN 10 MG TAB PO SCH (21:58)
[2018-03-13 23:51] LABS: Glucose,Whole Blood 253 mg/dL (75-99)
[2018-03-14] MEDS: INSULIN ASPART 100 UNIT/ML 1 ML 10 ML VIAL SQ SCH ×6 (00:13→19:52)
[2018-03-14] MEDS: HEPARIN SODIUM,PORCINE 5,000 UNIT/ML 1 ML VIAL SQ SCH ×3 (00:13→17:36)
[2018-03-14 03:46] LABS: Glucose,Whole Blood 187 mg/dL (75-99)
[2018-03-14] MEDS: IPRATROPIUM-ALBUTEROL 3 ML NEB INHALATION SCH ×4 (07:39→19:52)
[2018-03-14 07:49] LABS: Glucose,Whole Blood 181 mg/dL (75-99)
--- NOTE | 2018-03-14 10:44 | P.PN ---
Subjective Progress Note Date: 03/13/18 Progress note being dictated for Dr. Beyer. Interval history:Patient is a 67-year-old -[place] male who is being followed by the neurology service for possible seizure. Patient was brought to [facility] emergency room with shortness of breath. He was found to have significant pulmonary edema. Patient does have stage IV chronic kidney disease. Patient was being treated in the emergency room when one of the nurses noted patient to be unresponsive. Patient had questionable jerking activity. Patient had significant hypoglycemia in the 20s. He was given D50, intubated and sedated. Patient is currently in the ICU. Computed tomography scan of the brain was done which showed no acute abnormality. Computed tomography scan did show evidence of mild generalized atrophy. Patient was noted to have some rhythmic jerking. Patient was taken off propofol and had an EEG done. EEG showed generalized slowing of the background rhythm. EEG also showed significant triphasic waves which is commonly seen in hepatic pathology. Myoclonic activity was described. Patient was started on Depakote 500 mg every 12 hours IV. Staff reports no further jerking movements since starting Depakote. Patient remains sedated with propofol and on mechanical ventilation. acute kidney injury on chronic kidney disease. Patient has chronic kidney disease stage IV secondary to biopsy-proven diabetic kidney disease with severe chronicity. His baseline creatinine has been in the range of 4-5. Creatinine was 7.65 on admission 02/23/2018 this is my first day taking care of the pt , pt is still on vent , he has been off sedation , however he is still not waking up as expected . pt could have metabolic encephalopathy , vs other . pt with acute on chronic Kidney disease stage IV. nephrology are following the case .Creatinine was 7.65 on admission and is 5.99 today. pt is been seen by neurology who recommended to repeat the EEG and result is pending.pt had subtherapeutic level and extra doses were provided for him yesterday EEG from 02/21: abnormal with significant triphasic waves which is commonly seen in hepatic encephalopahty pt still does not respond to pain stimuli. despite been off sedation since this morning. pupils are equal and reactive to light, meningeal signs were absent when i examined the pt this morning pt has h/o Hep C and B , we will check ammonia level and other work up like B12 ,thyroid function test, syphlis screen ,repeat CT of the head ,with neurology follow up. no fever , no leukocytosis 02/24/2018 no change from yesterday in his mental status from the first time a saw her , still unresponsive , neurologist team is following the pt and recommended repeat EEG. critical care input is appreciated . ammonia level and TSH were negative , repeat CT head is negative for acute process as well 02/25/2018 Patient remains unresponsive as before. Repeat EEG showing moderate encephalopathy, significant triphasic waves consistent with hepatic disease. Occasional sharp wave consistent with due to seizure threshold. But no generalized epileptiform discharge. Patient is a plan to have trach placed on the surgical site. As well as dialysis catheter for dialysis. Patient has Delcid catheter with 40 mL in the bag. There is purulent discharge from the penis. Discussed with staff. Check culture for the discharge, change. AND CHECK BLADDER SCAN 02/26/2018 Patient remains unresponsive, the same. Patient had a dialysis catheter placed. Than his going for hemodialysis currently. Patient has been evaluated by strategy consultant on their input is appreciated. Patient is planned for going for PEG and tracheostomy possibly tomorrow, as per family wishes. To call care consult is appreciated. He has positive sputum culture was fracture and staphylococcus. urine discharge so there was has been changed. Urine culture is pending. We'll consult infectious diseases specialist. Patient with mild leukocytosis 02/27/2018 No improvement in the patient mental status, he remains unresponsive and intubated. Went for dialysis yesterday and today. And PEG tube with check estimated are planned for the patient's in 1 or 2 days. Prognosis remains very poor. The sputum culture is growing Serratia and staph aureus. ID consult is appreciated and patient was started on cefepime. Also patient got IV vancomycin doses . Pulmonary/critical care input is appreciated. Hemoglobin at 7.1. No leukocytosis. He had fever yesterday at 100.2 02/28/2018 pt is unresponsive, intubated , he is undergoing hemodialysis , and he is on antibiotic , he is responding a little bit to suctioning his mouth but only minimally , prognosis remains poor and guarded. pt had PEG and treacheostomy, he remains on cefepime per ID recommendation . pt has Serratia marcescens and staph aureus. while his penile c/s showing many gr-ve bacilli (areobic and unaerobic) and gram positive cocci (unaerobic) 03/03/2018 Patient is unresponsive, has tracheostomy and PEG tube. His undergoing hemodialysis. He is on antibiotics for infection his respiratory and urinary systems. Patient is smoking a grimace to painful stimuli but no more more than that. Continue with supportive care. Prognosis remains very poor 03/04/2018 No change in mental status of the patient, he remains unresponsive. Status post tracheostomy and PEG tube insertion. Continue with hemo-dialysis. And nephrology team are following the patient Continue with antibiotic. Continue with valproate. Critical care/pulmonary team evaluation and follow-up is appreciated. He is off mechanical ventilation currently and continue with trach collar. Continue with Protonix for GI prophylaxis. Patient has some grimace to painful stimuli, however unresponsive to verbal or tactile stimuli. Neurological evaluation is recommended with some workup like EKG and CAT scan of the brain Review of system: N/a Medication with dosages were reviewed including Tylenol 325 mg, Monica up 0.5-3 mg. Norvasc 10 mg. Lipitor 10 mg. Calcium acetate 667 mg. Ceftriaxone 1000 mg. Chlorhexidine. Clonidine 0.3 mg patch. Lasix 80 mg. Neurontin 100 mg. Heparin 5000 unit. Hydralazine 40 mg. NovoLog sliding scale. Labetalol 400 mg. Narcan 0.2 mg. protonix 40 mg. propofol on hold. sodium bicarb 650 mg. flomax 0.4 mg. thiamine 100 mg. valproic acid 750 mg. 03/05/[address] reporting atrophy. Positive cough with purulent yellow secretions.Gag response absent. Tolerating tube feeds at goal with minimal to no residuals. Sputum cultures reporting Serratia marcescens, MSSA. Afebrile. Maintained on cefepime as per ID. Spontaneously opens eyes, did not witness any movement-flaccid. Not communicating, and does not follow commands. Hypertensive, ARB resumed.Scheduled for hemodialysis today. Repeat EEG yesterday, reported slowing, consistent with mild encephalopathy without epileptiform discharges seen. No seizure activity reported. Chest x-ray reporting volume overload, CHF, uremia, basilar effusions, atelectasis, maintained on IV Lasix. Continues on 30% FiO2 trach collar. 03/06/2018 neurologic condition unchanged. Unresponsive to noxious stimuli. Spontaneously opens eyes, without tracking, does not follow commands. Maintained on trach collar. Positive cough, response. tolerating tube feeds at cough. maintained on iv antibiotics as per infectious disease. Chest x-ray reporting mild pulmonary vascular congestion, left-sided pleural effusion. Lengthy discussion between pulmonary/lace stripper and family, Dr. Coates and family via phone regarding poor prognosis, given no improvement in mental status. At this time family wishes to maintain full code, discussing no CODE STATUS among themselves. Comfort care/hospice options also discussed. 03/07/2018 maintained on cefepime for sputum with MSSA and Serratia marcescens. Afebrile. Maintained on 30% trach collar, without respiratory distress. Receiving hemodialysis today. Clinical/neurological presentation unchanged- unresponsive. Tolerating tube feeds at goal. Review of systems unable to obtain as patient is unresponsive. Active Medications Acetaminophen (Tylenol Tab) 325 mg PO Q6HR PRN PRN Reason: Fever and/ or Mild Pain Last Admin: 03/07/18 17:27 Dose: 325 mg Albuterol/Ipratropium (Duoneb 0.5 Mg-3 Mg/3 Ml Soln) 3 ml INHALATION RT-Q2H PRN PRN Reason: Shortness Of Breath Or Wheezing Last Admin: 03/07/18 14:28 Dose: 3 ml Albuterol/Ipratropium (Duoneb 0.5 Mg-3 Mg/3 Ml Soln) 3 ml INHALATION RT-QID [facility] Last Admin: 03/07/18 15:00 Dose: Not Given Amlodipine Besylate (Norvasc) 10 mg PO DAILY [facility] Last Admin: 03/07/18 10:41 Dose: 10 mg Atorvastatin Calcium (Lipitor) 10 mg PO HS [facility] Last Admin: 03/06/18 23:58 Dose: 10 mg Chlorhexidine Gluconate (Peridex) 15 ml MUCOUS MEM BID [facility] Last Admin: 03/07/18 10:38 Dose: 15 ml Clonidine (Catapres) 0.2 mg PO TID [facility] Last Admin: 03/07/18 16:36 Dose: 0.2 mg Darbepoetin Rivera (Aranesp) 40 mcg SQ Q7D [facility] Last Admin: 03/02/18 13:23 Dose: 40 mcg Furosemide (Lasix) 80 mg IV Q12H [facility] Last Admin: 03/07/18 10:39 Dose: 80 mg Gabapentin (Neurontin) 100 mg PO TID [facility] Last Admin: 03/07/18 16:36 Dose: 100 mg Heparin Sodium (Porcine) (Heparin) 5,000 unit SQ Q8HR [facility] Last Admin: 03/07/18 16:36 Dose: 5,000 unit Hydralazine HCl (Apresoline) 40 mg IVP Q6HR PRN PRN Reason: Blood Pressure - High Last Admin: 03/03/18 16:55 Dose: 40 mg Hydralazine HCl (Apresoline) 100 mg PO TID [facility] Last Admin: 03/07/18 16:36 Dose: 100 mg Valproic Acid 750 mg/ Sodium (Chloride) 57.5 mls @ 50 mls/hr IVPB TID [facility] Last Admin: 03/07/18 16:37 Dose: 50 mls/hr Cefepime HCl 1 gm/ Sodium (Chloride) 50 mls @ 100 mls/hr IVPB DAILY@1700 [facility] Last Admin: 03/07/18 16:29 Dose: 100 mls/hr Insulin Aspart (Novolog) 0 unit SQ Q4H [facility]; Protocol Last Admin: 03/07/18 16:24 Dose: 3 unit Labetalol HCl (Trandate) 400 mg PO TID [facility] Last Admin: 03/07/18 16:36 Dose: 400 mg Losartan Potassium (Cozaar) 50 mg PO DAILY [facility] Last Admin: 03/07/18 10:40 Dose: 50 mg Miscellaneous Information (Potassium Per Protocol) 1 each MISCELLANE DAILY PRN ; Protocol PRN Reason: Per Protocol Miscellaneous Information (Magnesium Per Protocol) 1 each MISCELLANE DAILY PRN ; Protocol PRN Reason: Per Protocol Naloxone HCl (Narcan) 0.2 mg IV Q2M PRN PRN Reason: Opioid Reversal Pantoprazole Sodium (Protonix) 40 mg IVP DAILY [facility] Last Admin: 03/07/18 10:40 Dose: 40 mg Tamsulosin HCl (Flomax) 0.4 mg PO DAILY [facility] Last Admin: 03/07/18 10:40 Dose: 0.4 mg Thiamine HCl (Vitamin B-1) 100 mg IVP DAILY [facility] Last Admin: 03/07/18 10:39 Dose: 100 mg 03/10/2018 Maintained on trach collar, without respiratory distress. Unresponsive, no purposeful movements reported. Receiving hemodialysis today. Maintained on IV antibiotics as per infectious disease. Unable to obtain review of systems as patient unresponsive. Active Medications Acetaminophen (Tylenol Tab) 325 mg PO Q6HR PRN PRN Reason: Fever and/ or Mild Pain Last Admin: 03/07/18 17:27 Dose: 325 mg Albuterol/Ipratropium (Duoneb 0.5 Mg-3 Mg/3 Ml Soln) 3 ml INHALATION RT-Q2H PRN PRN Reason: Shortness Of Breath Or Wheezing Last Admin: 03/07/18 14:28 Dose: 3 ml Albuterol/Ipratropium (Duoneb 0.5 Mg-3 Mg/3 Ml Soln) 3 ml INHALATION RT-QID [facility] Last Admin: 03/10/18 15:23 Dose: 3 ml Amlodipine Besylate (Norvasc) 10 mg PO DAILY [facility] Last Admin: 03/10/18 09:04 Dose: 10 mg Atorvastatin Calcium (Lipitor) 10 mg PO HS [facility] Last Admin: 03/09/18 23:09 Dose: 10 mg Chlorhexidine Gluconate (Peridex) 15 ml MUCOUS MEM BID [facility] Last Admin: 03/10/18 09:04 Dose: 15 ml Clonidine (Catapres) 0.2 mg PO TID [facility] Last Admin: 03/10/18 17:20 Dose: Not Given Darbepoetin Rivera (Aranesp) 40 mcg SQ Q7D [facility] Last Admin: 03/09/18 13:39 Dose: 40 mcg Docusate Sodium (Colace Oral Soln) 100 mg PO BID [facility] Last Admin: 03/10/18 09:04 Dose: 100 mg Furosemide (Lasix) 80 mg IV Q12H [facility] Last Admin: 03/10/18 09:05 Dose: 80 mg Gabapentin (Neurontin) 100 mg PO TID [facility] Last Admin: 03/10/18 17:21 Dose: Not Given Heparin Sodium (Porcine) (Heparin) 5,000 unit SQ Q8HR [facility] Last Admin: 03/10/18 09:04 Dose: 5,000 unit Hydralazine HCl (Apresoline) 40 mg IVP Q6HR PRN PRN Reason: Blood Pressure - High Last Admin: 03/03/18 16:55 Dose: 40 mg Hydralazine HCl (Apresoline) 100 mg PO TID [facility] Last Admin: 03/10/18 17:20 Dose: Not Given Valproic Acid 750 mg/ Sodium (Chloride) 57.5 mls @ 50 mls/hr IVPB TID [facility] Last Admin: 03/10/18 09:01 Dose: 50 mls/hr Cefepime HCl 1 gm/ Sodium (Chloride) 50 mls @ 100 mls/hr IVPB DAILY@1700 [facility] Last Admin: 03/09/18 18:09 Dose: 100 mls/hr Insulin Aspart (Novolog) 0 unit SQ Q4H [facility]; Protocol Last Admin: 03/10/18 13:15 Dose: 4 unit Labetalol HCl (Trandate) 400 mg PO TID [facility] Last Admin: 03/10/18 17:21 Dose: Not Given Losartan Potassium (Cozaar) 50 mg PO DAILY [facility] Last Admin: 03/10/18 09:03 Dose: 50 mg Miscellaneous Information (Potassium Per Protocol) 1 each MISCELLANE DAILY PRN ; Protocol PRN Reason: Per Protocol Miscellaneous Information (Magnesium Per Protocol) 1 each MISCELLANE DAILY PRN ; Protocol PRN Reason: Per Protocol Miscellaneous Information (Pharmacy To Dose Iv Vancomycin) 1 each MISCELLANE DIRECTED PRN PRN Reason: Per Protocol Naloxone HCl (Narcan) 0.2 mg IV Q2M PRN PRN Reason: Opioid Reversal Pantoprazole Sodium (Protonix) 40 mg IVP DAILY [facility] Last Admin: 03/10/18 09:02 Dose: 40 mg Tamsulosin HCl (Flomax) 0.4 mg PO DAILY [facility] Last Admin: 03/10/18 09:02 Dose: 0.4 mg Thiamine HCl (Vitamin B-1) 100 mg IVP DAILY [facility] Last Admin: 03/10/18 09:02 Dose: 100 mg 03/11/2018 remains unresponsive. Tolerating trach collar without respiratory distress. gaming worker met with patient's sister Rashida, who is going to petition for guardianship. Request CODE STATUS be changed to DO NOT RESUSCITATE. Patient unresponsive, Unable to obtain review of systems. Active Medications Generic Name Dose Route Start Last Admin Trade Name Freq PRN Reason Stop Dose Admin Acetaminophen 325 mg 02/24/18 12:11 03/07/18 17:27 Tylenol Tab PO 325 mg Q6HR PRN Administration Fever and/ or Mild Pain Albuterol/Ipratropium 3 ml 02/20/18 12:13 03/07/18 14:28 Duoneb 0.5 Mg-3 Mg/3 Ml Soln INHALATION 3 ml RT-Q2H PRN Administration Shortness Of Breath Or Wheezing Albuterol/Ipratropium 3 ml 03/05/18 08:00 03/11/18 15:26 Duoneb 0.5 Mg-3 Mg/3 Ml Soln INHALATION 3 ml RT-QID [facility] Administration Amlodipine Besylate 10 mg 02/21/18 10:30 03/11/18 09:36 Norvasc PO 10 mg DAILY [facility] Administration Atorvastatin Calcium 10 mg 02/20/18 21:00 03/10/18 20:25 Lipitor PO 10 mg HS [facility] Administration Chlorhexidine Gluconate 15 ml 02/20/18 16:26 03/11/18 09:38 Peridex MUCOUS MEM 15 ml BID [facility] Administration Clonidine 0.2 mg 03/03/18 11:00 03/11/18 09:36 Catapres PO 0.2 mg TID [facility] Administration Darbepoetin Rivera 40 mcg 03/02/18 12:00 03/09/18 13:39 Aranesp SQ 40 mcg Q7D [facility] Administration Docusate Sodium 100 mg 03/09/18 21:00 03/11/18 09:37 Colace Oral Soln PO 100 mg BID [facility] Administration Furosemide 80 mg 02/23/18 21:00 03/11/18 09:36 Lasix IV 80 mg Q12H [facility] Administration Gabapentin 100 mg 02/20/18 16:00 03/11/18 09:36 Neurontin PO 100 mg TID [facility] Administration Heparin Sodium (Porcine) 5,000 unit 02/20/18 16:00 03/11/18 09:37 Heparin SQ 5,000 unit Q8HR [facility] Administration Hydralazine HCl 40 mg 02/24/18 09:09 03/03/18 16:55 Apresoline IVP 40 mg Q6HR PRN Administration Blood Pressure - High Hydralazine HCl 100 mg 03/03/18 11:00 03/11/18 09:36 Apresoline PO 100 mg TID [facility] Administration Valproic Acid 750 mg/ Sodium 57.5 mls @ 50 mls/hr 02/24/18 16:00 03/11/18 09: 36 Chloride IVPB 50 mls/hr TID [facility] Administration Vancomycin HCl 1,500 mg/ 250 mls @ 125 mls/hr 03/11/18 18:00 Sodium Chloride IVPB 03/11/18 19:59 ONCE ONE Insulin Aspart 0 unit 02/22/18 16:00 03/11/18 12:57 Novolog SQ 4 unit Q4H [facility] Administration Protocol Labetalol HCl 400 mg 02/21/18 10:30 03/11/18 09:37 Trandate PO 400 mg TID [facility] Administration Losartan Potassium 50 mg 03/05/18 09:15 03/11/18 09:38 Cozaar PO 50 mg DAILY [facility] Administration Miscellaneous Information 1 each 03/05/18 05:35 Potassium Per Protocol MISCELLANE DAILY PRN Per Protocol Protocol Miscellaneous Information 1 each 03/06/18 06:23 Magnesium Per Protocol MISCELLANE DAILY PRN Per Protocol Protocol Miscellaneous Information 1 each 03/08/18 19:49 Pharmacy To Dose Iv Vancomycin MISCELLANE DIRECTED PRN Per Protocol Naloxone HCl 0.2 mg 02/20/18 02:10 Narcan IV Q2M PRN Opioid Reversal Pantoprazole Sodium 40 mg 03/04/18 09:00 03/11/18 09:37 Protonix IVP 40 mg DAILY [facility] Administration Tamsulosin HCl 0.4 mg 02/20/18 09:00 03/11/18 09:36 Flomax PO 0.4 mg DAILY [facility] Administration Thiamine HCl 100 mg 02/23/18 14:30 03/11/18 09:37 Vitamin B-1 IVP 100 mg DAILY [facility] Administration 03/13/2018 no overnight events. Received hemodialysis yesterday. Diuresing well on Lasix, weight decreased. Remains unresponsive, obtunded. Maintained on trach collar without respiratory distress. Maintained on IV antibiotics as per infectious disease. Repeat blood cultures pending. Afebrile. Tolerating tube feedings with no nausea vomiting or diarrhea. Objective - Vital Signs Vital signs: Vital Signs Temp 97 F L 03/13/18 05:00 Pulse 70 03/13/18 07:30 Resp 18 03/13/18 05:00 BP 127/70 03/13/18 05:00 Pulse Ox 98 03/13/18 05:00 Intake & Output 03/12/18 03/13/18 03/13/18 18:59 06:59 18:59 Intake Total 1854 554 Output Total 1000 Balance 854 554 Weight 71 kg 70 kg Intake: IV 300 50 NS 200 Valproate Sodium 750 mg 100 50 In Sodium Chloride 0.9% 50 ml @ 50 mls/hr IVPB TID [facility] Rx#:[id number] Intake, IV Titration 250 Amount Vancomycin 1,500 mg In 250 Sodium Chloride 0.9% 250 ml @ 125 mls/hr IVPB ONCE ONE Rx#:[id number] Tube Feeding 904 504 Other 400 Output: Urine 1000 Uretheral (Delcid) 600 Other: Voiding Method Indwelling Catheter Indwelling Catheter # Voids 20 # Bowel Movements 1 ABP, PAP, CO, CI - Last Documented Arterial Blood Pressure 135/56 - Exam -GENERAL: The patient is sitting up in bed, unresponsive HEENT: Conjunctiva normal, no JVD CARDIOVASCULAR: S1 and S2 present. No murmurs, rubs, or gallops. -PULMONARY: Essentially clear to auscultation, no wheezing, no crackles. Occasional scattered rhonchi. ABDOMEN: Soft, nontender, nondistended, normoactive bowel sounds. No palpable organomegaly. PEG tube present EXTREMITIES: No cyanosis, clubbing, or pedal edema. -s/p right BKA -NEUROLOGICAL: unresponsive to verbal or painful stinuli, opens eyes spontaneously, not to commands. Spontaneous cough, no gag. Microbiology 03/11/18 11:43 Blood Blood Culture - Preliminary No Growth after 48 hours 03/07/18 20:00 Blood Blood Culture Gram Stain - Final 03/07/18 20:00 Blood Blood Culture - Final Staph schleiferi SS coagulans 03/07/18 17:45 Urine,Catheterized Urine Culture - Final Sirena sp,not albicans/galbr 03/07/18 18:35 Blood Blood Culture - Final 03/01/18 15:15 Catheter Tip Catheter Tip Culture - Final 02/24/18 05:25 Blood Blood Culture - Final No Growth after 144 hours 02/24/18 05:07 Blood Blood Culture - Final No Growth after 144 hours 02/24/18 03:05 Penis Anaerobic Culture - Final Anaerobic Gm Negative Bacilli Anaerobic Gm Negative Bacilli#2 Anaerobic Gram Positive Cocci 02/19/18 23:29 Blood Blood Culture - Final No Growth after 144 hours 02/24/18 05:35 Sputum Gram Stain - Final 02/24/18 05:35 Sputum Sputum Culture - Final Serratia marcescens Staphylococcus aureus 02/24/18 06:07 Urine,Catheterized Urine Culture - Final 02/24/18 03:05 Catheter Site Gram Stain - Final 02/24/18 03:05 Catheter Site Wound Culture - Final 02/20/18 07:55 Sputum Gram Stain - Final 02/20/18 07:55 Sputum Sputum Culture - Final 02/20/18 11:00 Urine,Catheterized Urine Culture - Final - Labs CBC & Chem 7: 03/13/18 08:00 03/13/18 08:00 Labs: Abnormal Lab Results - Last 24 Hours (Table) 03/12/18 03/12/18 03/12/18 Range/Units 08:50 08:50 10:57 RBC 2.60 L (4.30-5.90) m/uL Hgb 7.6 L (13.0-17.5) gm/dL Hct 23.4 L (39.0-53.0) % Lymphocytes # (1.0-4.8) k/uL Sodium 132 L (137-145) mmol/L Chloride 97 L (98-107) mmol/L Carbon Dioxide 20 L (22-30) mmol/L BUN 83 H (9-20) mg/dL Creatinine 5.13 H (0.66-1.25) mg/dL Glucose 214 H (74-99) mg/dL POC Glucose (mg/dL) 217 H (75-99) mg/dL 03/12/18 03/12/18 03/12/18 Range/Units 16:33 20:20 23:47 RBC (4.30-5.90) m/uL Hgb (13.0-17.5) gm/dL Hct (39.0-53.0) % Lymphocytes # (1.0-4.8) k/uL Sodium (137-145) mmol/L Chloride (98-107) mmol/L Carbon Dioxide (22-30) mmol/L BUN (9-20) mg/dL Creatinine (0.66-1.25) mg/dL Glucose (74-99) mg/dL POC Glucose (mg/dL) 179 H 228 H 276 H (75-99) mg/dL 03/13/18 03/13/18 03/13/18 Range/Units 04:10 07:46 08:00 RBC 2.61 L (4.30-5.90) m/uL Hgb 7.5 L (13.0-17.5) gm/dL Hct 23.7 L (39.0-53.0) % Lymphocytes # 0.8 L (1.0-4.8) k/uL Sodium (137-145) mmol/L Chloride (98-107) mmol/L Carbon Dioxide (22-30) mmol/L BUN (9-20) mg/dL Creatinine (0.66-1.25) mg/dL Glucose (74-99) mg/dL POC Glucose (mg/dL) 260 H 231 H (75-99) mg/dL 03/13/18 Range/Units 08:00 RBC (4.30-5.90) m/uL Hgb (13.0-17.5) gm/dL Hct (39.0-53.0) % Lymphocytes # (1.0-4.8) k/uL Sodium 134 L (137-145) mmol/L Chloride (98-107) mmol/L Carbon Dioxide (22-30) mmol/L BUN 57 H (9-20) mg/dL Creatinine 4.02 H (0.66-1.25) mg/dL Glucose 220 H (74-99) mg/dL POC Glucose (mg/dL) (75-99) mg/dL Microbiology - Last 24 Hours (Table) 03/11/18 11:43 Blood Culture - Preliminary Blood No Growth after 24 hours Assessment and Plan Assessment: -Acute hypoxic respiratory failure: Secondary to congestive heart failure chronic diastolic dysfunction with acute exacerbation patient. Status post mechanical ventilation dependent , currently trach collared. -Episode of seizure believed to be secondary to profound hypoglycemia on admission and encephalopathy EEG showed diffuse slowing. patient has metabolic and toxic encephalopathy -acute on chronic renal failure , receiving hemodialysis -metabolic encephalopathy , possibly secondary to all above -Sepsis with possible tracheobronchitis, positive sputum culture with MSSA and Serratia marcescens. Blood cultures positive for staph Schleiferi SS. 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 -No code, no CPR, no intubation as requested per sister. Plan: Continue on current medication regime ,monitoring and symptomatic treatment. Social work obtaining public legal guardianship tomorrow. Hemodialysis as per nephrology. Follow-up blood culture pending with antibiotics as per infectious disease. Maintain supportive care. Prognosis poor. Further recommendations to follow. The impression and plan of care has been dictated as directed. : I performed a history and examination of this patient, discussed the same with the dictator. I agree with the dictator's note ,documented as a scribe. Any additional findings or plans will be noted.
[2018-03-14] MEDS: VALPROATE SODIUM 750 MG in SODIUM CHLORIDE 0.9% 50 ML IVPB SCH ×3 (11:12→22:03)
[2018-03-14] MEDS: FUROSEMIDE 10 MG/ML 10 ML VIAL IV SCH ×2 (11:29→22:01)
[2018-03-14] MEDS: CHLORHEXIDINE GLUCONATE 15 ML CUP MUCOUS MEM SCH ×2 (11:32→22:02)
[2018-03-14] MEDS: GABAPENTIN 100 MG CAP PO SCH ×3 (11:33→22:02)
[2018-03-14] MEDS: DOCUSATE ORAL SOLN 100 MG/10 ML CUP PO SCH ×2 (11:33→22:02)
[2018-03-14 11:34] LABS: Glucose,Whole Blood 171 mg/dL (75-99)
[2018-03-14] MEDS: LABETALOL 200 MG TAB PO SCH ×3 (11:34→22:02)
[2018-03-14] MEDS: PANTOPRAZOLE 40 MG/10 ML VIAL IVP SCH (11:35)
[2018-03-14] MEDS: THIAMINE 100 MG/ML 2 ML VIAL IVP SCH (11:35)
[2018-03-14] MEDS: TAMSULOSIN 0.4 MG CAP.ER.24H PO SCH (11:35)
[2018-03-14 11:38] LABS: Basophils % (A) 0 %; Eosinophils # (A) 0.1 k/uL (0-0.7); Eosinophils % (A) 2 %; HCT 24.1 % (39.0-53.0); HGB 7.5 gm/dL (13.0-17.5); Hypochromasia Slight; Lymphocytes # (A) 0.8 k/uL (1.0-4.8); Lymphocytes % (A) 13 %; MCH 28.7 pg (25.0-35.0); MCHC 31.2 g/dL (31.0-37.0); MCV 92.2 fL (80.0-100.0); Mean Platelet Volume 7.7; Monocytes # (A) 0.8 k/uL (0-1.0); Monocytes % (A) 14 %; Neutrophils # (A) 4.4 k/uL (1.3-7.7); Neutrophils % (A) 71 %; Platelet Count 433 k/uL (150-450); RBC 2.62 m/uL (4.30-5.90); RDW 14.7 % (11.5-15.5); WBC 6.3 k/uL (3.8-10.6)
[2018-03-14 11:51] LABS: Potassium 4.4 mmol/L (3.5-5.1)
[2018-03-14 11:54] LABS: Calcium 9.1 mg/dL (8.4-10.2)
[2018-03-14] MEDS ORDERED: HEPARIN SODIUM,PORCINE 5,000 UNIT/ML 1 ML VIAL ONE (13:00)
[2018-03-14] MEDS: cloNIDine HCL 0.2 MG TAB PO SCH ×3 (13:31→22:01)
[2018-03-14] MEDS: hydrALAZINE HCL 50 MG TAB PO SCH ×3 (13:32→22:01)
[2018-03-14] MEDS: amLODIPine 10 MG TAB PO SCH (13:34)
[2018-03-14] MEDS: LOSARTAN 50 MG TAB PO SCH (13:34)
[2018-03-14 16:24] LABS: Glucose,Whole Blood 169 mg/dL (75-99)
--- NOTE | 2018-03-14 19:09 | PN ---
PROGRESS NOTE Patient is seen for followup for chronic kidney disease, currently hemodialysis dependent, mainly end-stage renal disease now. The patient has severe encephalopathy and has been pretty much unresponsive. However, he remains a FULL CODE and we are dialyzing him on a Saturday, Saturday, Saturday schedule. The patient currently has an IJ PermCath. He will be dialyzed today. PHYSICAL EXAMINATION: Blood pressure is 144/82, heart rate 75 per minute. Patient is afebrile. Examination of the heart: S1, S2. Examination of the lungs: Bilateral breath sounds are heard. Abdomen is soft, nontender. 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 No significant edema noted in the left lower extremity. The patient is maintained on trach collar. He remains unresponsive. LAB: 1. Shows sodium 132, potassium 4.4, hemoglobin 7.5, creatinine 5.3. ASSESSMENT: 1. End-stage renal disease, currently on hemodialysis, maintained on a Saturday, Saturday, Saturday schedule. 2. Hypertension, initially uncontrolled, currently much better controlled. 3. Severe encephalopathy and obtundation with profound hypoglycemia on initial admission. There has been no improvement in mentation. Currently, a guardian is being appointed for decision making regarding code status. 4. Serratia marcescens and Staphylococcus aureus pneumonia. 5. Volume overload, currently improved. PLAN: Continue with the Lasix. Hemodialysis today. Continue with Jose A. YANET / TONN: [id number] /
[2018-03-14 19:49] LABS: Glucose,Whole Blood 234 mg/dL (75-99)
[2018-03-14] MEDS ORDERED: VANCOMYCIN 1,500 MG in SODIUM CHLORIDE 0.9% 250 ML IVPB ONE (21:00)
[2018-03-14] MEDS: ATORVASTATIN 10 MG TAB PO SCH (22:01)
[2018-03-14 23:56] LABS: Glucose,Whole Blood 238 mg/dL (75-99)
--- NOTE | 2018-03-15 | PN ---
PROGRESS NOTE DATE OF SERVICE: 03/14/2018. REASON FOR FOLLOWUP: Positive blood culture. INTERVAL HISTORY: The patient is currently afebrile. He has been breathing comfortably. Hemodynamically stable. Has been tolerating tube feeds. No diarrhea. Unable to provide any history. EXAMINATION: Blood pressure 154/79, pulse of 74, temperature is 10.6. He is 96% on trach collar. GENERAL DESCRIPTION: An elderly male, lying in bed in no distress. RESPIRATORY SYSTEM: Unlabored breathing with decreased breath sounds at the bases. No wheeze. HEART: S1, S2. Regular rate and rhythm. ABDOMEN: Soft, no tenderness. LABS: Hemoglobin 7.5, white count 6.3 with a BUN of 7 and creatinine 5.31. DIAGNOSTIC IMPRESSION AND PLAN: Patient with positive blood culture with Staph epi. The patient did have a right subclavian catheter for dialysis. Currently being maintained on vancomycin. Repeat cultures have been negative. The patient received about 7 to 10 days of antibiotics and Vanco will be discontinued. Monitor his clinical course closely. Continue supportive care. DONNAL / TONN: [id number] /
[2018-03-15 04:17] LABS: Glucose,Whole Blood 187 mg/dL (75-99)
[2018-03-15] MEDS: INSULIN ASPART 100 UNIT/ML 1 ML 10 ML VIAL SQ SCH ×6 (04:59→22:10)
[2018-03-15] MEDS: IPRATROPIUM-ALBUTEROL 3 ML NEB INHALATION SCH ×4 (07:27→20:29)
[2018-03-15] MEDS: FUROSEMIDE 10 MG/ML 10 ML VIAL IV SCH ×2 (08:17→22:35)
[2018-03-15] MEDS: PANTOPRAZOLE 40 MG/10 ML VIAL IVP SCH (08:17)
[2018-03-15] MEDS: CHLORHEXIDINE GLUCONATE 15 ML CUP MUCOUS MEM SCH ×2 (08:18→22:35)
[2018-03-15] MEDS: THIAMINE 100 MG/ML 2 ML VIAL IVP SCH (08:18)
[2018-03-15] MEDS: HEPARIN SODIUM,PORCINE 5,000 UNIT/ML 1 ML VIAL SQ SCH ×3 (08:18→16:22)
[2018-03-15] MEDS: DOCUSATE ORAL SOLN 100 MG/10 ML CUP PO SCH ×2 (08:19→22:35)
[2018-03-15] MEDS: GABAPENTIN 100 MG CAP PO SCH ×3 (08:19→22:35)
[2018-03-15] MEDS: VALPROATE SODIUM 750 MG in SODIUM CHLORIDE 0.9% 50 ML IVPB SCH ×3 (08:19→22:38)
[2018-03-15] MEDS: hydrALAZINE HCL 50 MG TAB PO SCH ×3 (08:19→22:35)
[2018-03-15] MEDS: cloNIDine HCL 0.2 MG TAB PO SCH ×3 (08:19→22:35)
[2018-03-15] MEDS: LABETALOL 200 MG TAB PO SCH ×3 (08:19→22:35)
[2018-03-15] MEDS: TAMSULOSIN 0.4 MG CAP.ER.24H PO SCH (08:19)
[2018-03-15] MEDS: LOSARTAN 50 MG TAB PO SCH (08:19)
[2018-03-15] MEDS: amLODIPine 10 MG TAB PO SCH (08:19)
[2018-03-15 08:52] LABS: Glucose,Whole Blood 197 mg/dL (75-99)
[2018-03-15 09:06] LABS: Basophils % (A) 0 %; Eosinophils # (A) 0.1 k/uL (0-0.7); Eosinophils % (A) 2 %; HCT 23.3 % (39.0-53.0); HGB 7.6 gm/dL (13.0-17.5); Lymphocytes # (A) 1.1 k/uL (1.0-4.8); Lymphocytes % (A) 15 %; MCH 29.2 pg (25.0-35.0); MCHC 32.5 g/dL (31.0-37.0); Monocytes % (A) 13 %; Neutrophils % (A) 69 %; Platelet Count 467 k/uL (150-450); RBC 2.59 m/uL (4.30-5.90); WBC 7.3 k/uL (3.8-10.6)
[2018-03-15 09:18] LABS: Calcium 9.1 mg/dL (8.4-10.2); Potassium 3.9 mmol/L (3.5-5.1)
--- NOTE | 2018-03-15 11:26 | P.PN ---
Subjective Patient is a 67-year-old -[place]izen Of [place] male who is being followed by the neurology service for possible seizure. Patient was brought to [facility] emergency room with shortness of breath. He was found to have significant pulmonary edema. Patient does have stage IV chronic kidney disease. Patient was being treated in the emergency room when one of the nurses noted patient to be unresponsive. Patient had questionable jerking activity. Patient had significant hypoglycemia in the 20s. He was given D50, intubated and sedated. Patient is currently in the ICU. Computed tomography scan of the brain was done which showed no acute abnormality. Computed tomography scan did show evidence of mild generalized atrophy. Patient was noted to have some rhythmic jerking. Patient was taken off propofol and had an EEG done. EEG showed generalized slowing of the background rhythm. EEG also showed significant triphasic waves which is commonly seen in hepatic pathology. Myoclonic activity was described. Patient was started on Depakote 500 mg every 12 hours IV. Staff reports no further jerking movements since starting Depakote. Patient remains sedated with propofol and on mechanical ventilation. acute kidney injury on chronic kidney disease. Patient has chronic kidney disease stage IV secondary to biopsy-proven diabetic kidney disease with severe chronicity. His baseline creatinine has been in the range of 4-5. Creatinine was 7.65 on admission 02/23/2018 this is my first day taking care of the pt , pt is still on vent , he has been off sedation , however he is still not waking up as expected . pt could have metabolic encephalopathy , vs other . pt with acute on chronic Kidney disease stage IV. nephrology are following the case .Creatinine was 7.65 on admission and is 5.99 today. pt is been seen by neurology who recommended to repeat the EEG and result is pending.pt had subtherapeutic level and extra doses were provided for him yesterday EEG from 02/21: abnormal with significant triphasic waves which is commonly seen in hepatic encephalopahty pt still does not respond to pain stimuli. despite been off sedation since this morning. pupils are equal and reactive to light, meningeal signs were absent when i examined the pt this morning pt has h/o Hep C and B , we will check ammonia level and other work up like B12 ,thyroid function test, syphlis screen ,repeat CT of the head ,with neurology follow up. no fever , no leukocytosis 02/24/2018 no change from yesterday in his mental status from the first time a saw her , still unresponsive , neurologist team is following the pt and recommended repeat EEG. critical care input is appreciated . ammonia level and TSH were negative , repeat CT head is negative for acute process as well 02/25/2018 Patient remains unresponsive as before. Repeat EEG showing moderate encephalopathy, significant triphasic waves consistent with hepatic disease. Occasional sharp wave consistent with due to seizure threshold. But no generalized epileptiform discharge. Patient is a plan to have trach placed on the surgical site. As well as dialysis catheter for dialysis. Patient has Delcid catheter with 40 mL in the bag. There is purulent discharge from the penis. Discussed with staff. Check culture for the discharge, change. AND CHECK BLADDER SCAN 02/26/2018 Patient remains unresponsive, the same. Patient had a dialysis catheter placed. Than his going for hemodialysis currently. Patient has been evaluated by medical technologist chemistry on their input is appreciated. Patient is planned for going for PEG and tracheostomy possibly tomorrow, as per family wishes. To call care consult is appreciated. He has positive sputum culture was fracture and staphylococcus. urine discharge so there was has been changed. Urine culture is pending. We'll consult infectious diseases specialist. Patient with mild leukocytosis 02/27/2018 No improvement in the patient mental status, he remains unresponsive and intubated. Went for dialysis yesterday and today. And PEG tube with check estimated are planned for the patient's in 1 or 2 days. Prognosis remains very poor. The sputum culture is growing Serratia and staph aureus. ID consult is appreciated and patient was started on cefepime. Also patient got IV vancomycin doses . Pulmonary/critical care input is appreciated. Hemoglobin at 7.1. No leukocytosis. He had fever yesterday at 100.2 02/28/2018 pt is unresponsive, intubated , he is undergoing hemodialysis , and he is on antibiotic , he is responding a little bit to suctioning his mouth but only minimally , prognosis remains poor and guarded. pt had PEG and treacheostomy, he remains on cefepime per ID recommendation . pt has Serratia marcescens and staph aureus. while his penile c/s showing many gr-ve bacilli (areobic and unaerobic) and gram positive cocci (unaerobic) 03/03/2018 Patient is unresponsive, has tracheostomy and PEG tube. His undergoing hemodialysis. He is on antibiotics for infection his respiratory and urinary systems. Patient is smoking a grimace to painful stimuli but no more more than that. Continue with supportive care. Prognosis remains very poor 03/04/2018 No change in mental status of the patient, he remains unresponsive. Status post tracheostomy and PEG tube insertion. Continue with hemo-dialysis. And nephrology team are following the patient Continue with antibiotic. Continue with valproate. Critical care/pulmonary team evaluation and follow-up is appreciated. He is off mechanical ventilation currently and continue with trach collar. Continue with Protonix for GI prophylaxis. Patient has some grimace to painful stimuli, however unresponsive to verbal or tactile stimuli. Neurological evaluation is recommended with some workup like EKG and CAT scan of the brain 03/15/2018 Patient remains unresponsive, and change from last time I saw the patient. Patient remains on antibiotic as per ID recommendation. Blood pressure medication and his blood pressure is now is currently better controlled .patient is currently on hemodialysis on Saturday, Saturday and Saturday schedule. Nephrology team are following the patient Prognosis remains poor Objective - Vital Signs Vital signs: Vital Signs Temp 98.8 F 03/15/18 05:00 Pulse 79 03/15/18 07:45 Resp 18 03/15/18 05:00 BP 132/69 03/15/18 05:00 Pulse Ox 97 03/15/18 07:27 Intake & Output 03/14/18 03/15/18 03/15/18 18:59 06:59 18:59 Intake Total 504 824 Output Total 50 Balance 504 774 Weight 74 kg Intake: IV 50 Valproate Sodium 750 mg 50 In Sodium Chloride 0.9% 50 ml @ 50 mls/hr IVPB TID [facility] Rx#:[id number] Intake, IV Titration 250 Amount Vancomycin 1,500 mg In 250 Sodium Chloride 0.9% 250 ml @ 125 mls/hr IVPB ONCE ONE Rx#:[id number] Tube Feeding 504 524 Output: Urine 50 Uretheral (Delcid) 50 Other: Voiding Method Indwelling Catheter Indwelling Catheter # Voids 0 # Bowel Movements 1 1 ABP, PAP, CO, CI - Last Documented Arterial Blood Pressure 135/56 - Exam -GENERAL: The patient is unresponsive , does not open eyes,intubated. not in any acute distress. Well developed, HEENT: Pupils are round and equally reacting to light. EOMI. No scleral icterus. No conjunctival pallor. Normocephalic, atraumatic. No pharyngeal erythema. No thyromegaly. CARDIOVASCULAR: S1 and S2 present. No murmurs, rubs, or gallops. -PULMONARY: Chest is clear to auscultation, no wheezing. Bilateral scattered crackles. ABDOMEN: Soft, nontender, nondistended, normoactive bowel sounds. No palpable organomegaly. MUSCULOSKELETAL: No joint swelling or deformity. EXTREMITIES: No cyanosis, clubbing, or pedal edema. -s/p right BKA -NEUROLOGICAL: unresponsive to verbal or painful stinuli, does not open eyes. SKIN: No rashes. - Labs CBC & Chem 7: 03/15/18 08:40 03/15/18 08:40 Labs: Abnormal Lab Results - Last 24 Hours (Table) 03/14/18 03/14/18 03/14/18 Range/Units 09:08 09:08 11:33 RBC 2.62 L (4.30-5.90) m/uL Hgb 7.5 L (13.0-17.5) gm/dL Hct 24.1 L (39.0-53.0) % Plt Count (150-450) k/uL Lymphocytes # 0.8 L (1.0-4.8) k/uL Sodium 132 L (137-145) mmol/L Chloride 97 L (98-107) mmol/L Carbon Dioxide 20 L (22-30) mmol/L BUN 79 H (9-20) mg/dL Creatinine 5.31 H (0.66-1.25) mg/dL Glucose 205 H (74-99) mg/dL POC Glucose (mg/dL) 171 H (75-99) mg/dL 03/14/18 03/14/18 03/14/18 Range/Units 16:24 19:46 23:54 RBC (4.30-5.90) m/uL Hgb (13.0-17.5) gm/dL Hct (39.0-53.0) % Plt Count (150-450) k/uL Lymphocytes # (1.0-4.8) k/uL Sodium (137-145) mmol/L Chloride (98-107) mmol/L Carbon Dioxide (22-30) mmol/L BUN (9-20) mg/dL Creatinine (0.66-1.25) mg/dL Glucose (74-99) mg/dL POC Glucose (mg/dL) 169 H 234 H 238 H (75-99) mg/dL 03/15/18 03/15/18 03/15/18 Range/Units 04:14 08:40 08:40 RBC 2.59 L (4.30-5.90) m/uL Hgb 7.6 L (13.0-17.5) gm/dL Hct 23.3 L (39.0-53.0) % Plt Count 467 H (150-450) k/uL Lymphocytes # (1.0-4.8) k/uL Sodium 136 L (137-145) mmol/L Chloride (98-107) mmol/L Carbon Dioxide (22-30) mmol/L BUN 55 H (9-20) mg/dL Creatinine 4.23 H (0.66-1.25) mg/dL Glucose 180 H (74-99) mg/dL POC Glucose (mg/dL) 187 H (75-99) mg/dL 03/15/18 Range/Units 08:51 RBC (4.30-5.90) m/uL Hgb (13.0-17.5) gm/dL Hct (39.0-53.0) % Plt Count (150-450) k/uL Lymphocytes # (1.0-4.8) k/uL Sodium (137-145) mmol/L Chloride (98-107) mmol/L Carbon Dioxide (22-30) mmol/L BUN (9-20) mg/dL Creatinine (0.66-1.25) mg/dL Glucose (74-99) mg/dL POC Glucose (mg/dL) 197 H (75-99) mg/dL Microbiology - Last 24 Hours (Table) 03/11/18 11:43 Blood Culture - Preliminary Blood No Growth after 72 hours Assessment and Plan Plan: Assessment and Plan -Acute hypoxic respiratory failure: Secondary to congestive heart failure chronic diastolic dysfunction with acute exacerbation patient , with other causes occluded. He was started on high-dose of Lasix. Continuing with the ventilatory support, diurese well improved creatinine with Lasix. Improving -possible seizure versus metabolic encephalopathy related to low glu , neurology team is following the pt , on depakote and level checked as per neuro team recommendation -acute on chronic renal failure , f/u with nephrology. Patient is getting hemodialysis -metabolic encephalopathy , possibly secondary to all above -Sepsis with possible tracheobronchitis, positive sputum culture. Patient on antibiotic. 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 -Hypotension is possibly secondary to sedation antidepressive medications will be held and restarted as needed. Hyperlipidemia -Episode of seizure believed to be secondary to hypoglycemia and encephalopathy EEG showed diffuse slowing. patient has metabolic and toxic encephalopathy -Possible Purulent discharge from the penile orifice. Culture: Many gram- negative and positive bacteria, see report DVT and GI px. pt is on heparin and protonix prognosis is very poor
[2018-03-15 12:14] LABS: Glucose,Whole Blood 259 mg/dL (75-99)
--- NOTE | 2018-03-15 12:15 | P.PN ---
Subjective Progress Note Date: 03/14/18 Progress note being dictated for Dr. Beyer. Interval history:Patient is a 67-year-old -[place] male who is being followed by the neurology service for possible seizure. Patient was brought to [facility] emergency room with shortness of breath. He was found to have significant pulmonary edema. Patient does have stage IV chronic kidney disease. Patient was being treated in the emergency room when one of the nurses noted patient to be unresponsive. Patient had questionable jerking activity. Patient had significant hypoglycemia in the 20s. He was given D50, intubated and sedated. Patient is currently in the ICU. Computed tomography scan of the brain was done which showed no acute abnormality. Computed tomography scan did show evidence of mild generalized atrophy. Patient was noted to have some rhythmic jerking. Patient was taken off propofol and had an EEG done. EEG showed generalized slowing of the background rhythm. EEG also showed significant triphasic waves which is commonly seen in hepatic pathology. Myoclonic activity was described. Patient was started on Depakote 500 mg every 12 hours IV. Staff reports no further jerking movements since starting Depakote. Patient remains sedated with propofol and on mechanical ventilation. acute kidney injury on chronic kidney disease. Patient has chronic kidney disease stage IV secondary to biopsy-proven diabetic kidney disease with severe chronicity. His baseline creatinine has been in the range of 4-5. Creatinine was 7.65 on admission 02/23/2018 this is my first day taking care of the pt , pt is still on vent , he has been off sedation , however he is still not waking up as expected . pt could have metabolic encephalopathy , vs other . pt with acute on chronic Kidney disease stage IV. nephrology are following the case .Creatinine was 7.65 on admission and is 5.99 today. pt is been seen by neurology who recommended to repeat the EEG and result is pending.pt had subtherapeutic level and extra doses were provided for him yesterday EEG from 02/21: abnormal with significant triphasic waves which is commonly seen in hepatic encephalopahty pt still does not respond to pain stimuli. despite been off sedation since this morning. pupils are equal and reactive to light, meningeal signs were absent when i examined the pt this morning pt has h/o Hep C and B , we will check ammonia level and other work up like B12 ,thyroid function test, syphlis screen ,repeat CT of the head ,with neurology follow up. no fever , no leukocytosis 02/24/2018 no change from yesterday in his mental status from the first time a saw her , still unresponsive , neurologist team is following the pt and recommended repeat EEG. critical care input is appreciated . ammonia level and TSH were negative , repeat CT head is negative for acute process as well 02/25/2018 Patient remains unresponsive as before. Repeat EEG showing moderate encephalopathy, significant triphasic waves consistent with hepatic disease. Occasional sharp wave consistent with due to seizure threshold. But no generalized epileptiform discharge. Patient is a plan to have trach placed on the surgical site. As well as dialysis catheter for dialysis. Patient has Delcid catheter with 40 mL in the bag. There is purulent discharge from the penis. Discussed with staff. Check culture for the discharge, change. AND CHECK BLADDER SCAN 02/26/2018 Patient remains unresponsive, the same. Patient had a dialysis catheter placed. Than his going for hemodialysis currently. Patient has been evaluated by trolley worker on their input is appreciated. Patient is planned for going for PEG and tracheostomy possibly tomorrow, as per family wishes. To call care consult is appreciated. He has positive sputum culture was fracture and staphylococcus. urine discharge so there was has been changed. Urine culture is pending. We'll consult infectious diseases specialist. Patient with mild leukocytosis 02/27/2018 No improvement in the patient mental status, he remains unresponsive and intubated. Went for dialysis yesterday and today. And PEG tube with check estimated are planned for the patient's in 1 or 2 days. Prognosis remains very poor. The sputum culture is growing Serratia and staph aureus. ID consult is appreciated and patient was started on cefepime. Also patient got IV vancomycin doses . Pulmonary/critical care input is appreciated. Hemoglobin at 7.1. No leukocytosis. He had fever yesterday at 100.2 02/28/2018 pt is unresponsive, intubated , he is undergoing hemodialysis , and he is on antibiotic , he is responding a little bit to suctioning his mouth but only minimally , prognosis remains poor and guarded. pt had PEG and treacheostomy, he remains on cefepime per ID recommendation . pt has Serratia marcescens and staph aureus. while his penile c/s showing many gr-ve bacilli (areobic and unaerobic) and gram positive cocci (unaerobic) 03/03/2018 Patient is unresponsive, has tracheostomy and PEG tube. His undergoing hemodialysis. He is on antibiotics for infection his respiratory and urinary systems. Patient is smoking a grimace to painful stimuli but no more more than that. Continue with supportive care. Prognosis remains very poor 03/04/2018 No change in mental status of the patient, he remains unresponsive. Status post tracheostomy and PEG tube insertion. Continue with hemo-dialysis. And nephrology team are following the patient Continue with antibiotic. Continue with valproate. Critical care/pulmonary team evaluation and follow-up is appreciated. He is off mechanical ventilation currently and continue with trach collar. Continue with Protonix for GI prophylaxis. Patient has some grimace to painful stimuli, however unresponsive to verbal or tactile stimuli. Neurological evaluation is recommended with some workup like EKG and CAT scan of the brain Review of system: N/a Medication with dosages were reviewed including Tylenol 325 mg, Monica up 0.5-3 mg. Norvasc 10 mg. Lipitor 10 mg. Calcium acetate 667 mg. Ceftriaxone 1000 mg. Chlorhexidine. Clonidine 0.3 mg patch. Lasix 80 mg. Neurontin 100 mg. Heparin 5000 unit. Hydralazine 40 mg. NovoLog sliding scale. Labetalol 400 mg. Narcan 0.2 mg. protonix 40 mg. propofol on hold. sodium bicarb 650 mg. flomax 0.4 mg. thiamine 100 mg. valproic acid 750 mg. 03/05/[address] reporting atrophy. Positive cough with purulent yellow secretions.Gag response absent. Tolerating tube feeds at goal with minimal to no residuals. Sputum cultures reporting Serratia marcescens, MSSA. Afebrile. Maintained on cefepime as per ID. Spontaneously opens eyes, did not witness any movement-flaccid. Not communicating, and does not follow commands. Hypertensive, ARB resumed.Scheduled for hemodialysis today. Repeat EEG yesterday, reported slowing, consistent with mild encephalopathy without epileptiform discharges seen. No seizure activity reported. Chest x-ray reporting volume overload, CHF, uremia, basilar effusions, atelectasis, maintained on IV Lasix. Continues on 30% FiO2 trach collar. 03/06/2018 neurologic condition unchanged. Unresponsive to noxious stimuli. Spontaneously opens eyes, without tracking, does not follow commands. Maintained on trach collar. Positive cough, response. tolerating tube feeds at cough. maintained on iv antibiotics as per infectious disease. Chest x-ray reporting mild pulmonary vascular congestion, left-sided pleural effusion. Lengthy discussion between pulmonary/surveying crew stake runner and family, Dr. Coates and family via phone regarding poor prognosis, given no improvement in mental status. At this time family wishes to maintain full code, discussing no CODE STATUS among themselves. Comfort care/hospice options also discussed. 03/07/2018 maintained on cefepime for sputum with MSSA and Serratia marcescens. Afebrile. Maintained on 30% trach collar, without respiratory distress. Receiving hemodialysis today. Clinical/neurological presentation unchanged- unresponsive. Tolerating tube feeds at goal. Review of systems unable to obtain as patient is unresponsive. Active Medications Acetaminophen (Tylenol Tab) 325 mg PO Q6HR PRN PRN Reason: Fever and/ or Mild Pain Last Admin: 03/07/18 17:27 Dose: 325 mg Albuterol/Ipratropium (Duoneb 0.5 Mg-3 Mg/3 Ml Soln) 3 ml INHALATION RT-Q2H PRN PRN Reason: Shortness Of Breath Or Wheezing Last Admin: 03/07/18 14:28 Dose: 3 ml Albuterol/Ipratropium (Duoneb 0.5 Mg-3 Mg/3 Ml Soln) 3 ml INHALATION RT-QID [facility] Last Admin: 03/07/18 15:00 Dose: Not Given Amlodipine Besylate (Norvasc) 10 mg PO DAILY [facility] Last Admin: 03/07/18 10:41 Dose: 10 mg Atorvastatin Calcium (Lipitor) 10 mg PO HS [facility] Last Admin: 03/06/18 23:58 Dose: 10 mg Chlorhexidine Gluconate (Peridex) 15 ml MUCOUS MEM BID [facility] Last Admin: 03/07/18 10:38 Dose: 15 ml Clonidine (Catapres) 0.2 mg PO TID [facility] Last Admin: 03/07/18 16:36 Dose: 0.2 mg Darbepoetin Rivera (Aranesp) 40 mcg SQ Q7D [facility] Last Admin: 03/02/18 13:23 Dose: 40 mcg Furosemide (Lasix) 80 mg IV Q12H [facility] Last Admin: 03/07/18 10:39 Dose: 80 mg Gabapentin (Neurontin) 100 mg PO TID [facility] Last Admin: 03/07/18 16:36 Dose: 100 mg Heparin Sodium (Porcine) (Heparin) 5,000 unit SQ Q8HR [facility] Last Admin: 03/07/18 16:36 Dose: 5,000 unit Hydralazine HCl (Apresoline) 40 mg IVP Q6HR PRN PRN Reason: Blood Pressure - High Last Admin: 03/03/18 16:55 Dose: 40 mg Hydralazine HCl (Apresoline) 100 mg PO TID [facility] Last Admin: 03/07/18 16:36 Dose: 100 mg Valproic Acid 750 mg/ Sodium (Chloride) 57.5 mls @ 50 mls/hr IVPB TID [facility] Last Admin: 03/07/18 16:37 Dose: 50 mls/hr Cefepime HCl 1 gm/ Sodium (Chloride) 50 mls @ 100 mls/hr IVPB DAILY@1700 [facility] Last Admin: 03/07/18 16:29 Dose: 100 mls/hr Insulin Aspart (Novolog) 0 unit SQ Q4H [facility]; Protocol Last Admin: 03/07/18 16:24 Dose: 3 unit Labetalol HCl (Trandate) 400 mg PO TID [facility] Last Admin: 03/07/18 16:36 Dose: 400 mg Losartan Potassium (Cozaar) 50 mg PO DAILY [facility] Last Admin: 03/07/18 10:40 Dose: 50 mg Miscellaneous Information (Potassium Per Protocol) 1 each MISCELLANE DAILY PRN ; Protocol PRN Reason: Per Protocol Miscellaneous Information (Magnesium Per Protocol) 1 each MISCELLANE DAILY PRN ; Protocol PRN Reason: Per Protocol Naloxone HCl (Narcan) 0.2 mg IV Q2M PRN PRN Reason: Opioid Reversal Pantoprazole Sodium (Protonix) 40 mg IVP DAILY [facility] Last Admin: 03/07/18 10:40 Dose: 40 mg Tamsulosin HCl (Flomax) 0.4 mg PO DAILY [facility] Last Admin: 03/07/18 10:40 Dose: 0.4 mg Thiamine HCl (Vitamin B-1) 100 mg IVP DAILY [facility] Last Admin: 03/07/18 10:39 Dose: 100 mg 03/10/2018 Maintained on trach collar, without respiratory distress. Unresponsive, no purposeful movements reported. Receiving hemodialysis today. Maintained on IV antibiotics as per infectious disease. Unable to obtain review of systems as patient unresponsive. Active Medications Acetaminophen (Tylenol Tab) 325 mg PO Q6HR PRN PRN Reason: Fever and/ or Mild Pain Last Admin: 03/07/18 17:27 Dose: 325 mg Albuterol/Ipratropium (Duoneb 0.5 Mg-3 Mg/3 Ml Soln) 3 ml INHALATION RT-Q2H PRN PRN Reason: Shortness Of Breath Or Wheezing Last Admin: 03/07/18 14:28 Dose: 3 ml Albuterol/Ipratropium (Duoneb 0.5 Mg-3 Mg/3 Ml Soln) 3 ml INHALATION RT-QID [facility] Last Admin: 03/10/18 15:23 Dose: 3 ml Amlodipine Besylate (Norvasc) 10 mg PO DAILY [facility] Last Admin: 03/10/18 09:04 Dose: 10 mg Atorvastatin Calcium (Lipitor) 10 mg PO HS [facility] Last Admin: 03/09/18 23:09 Dose: 10 mg Chlorhexidine Gluconate (Peridex) 15 ml MUCOUS MEM BID [facility] Last Admin: 03/10/18 09:04 Dose: 15 ml Clonidine (Catapres) 0.2 mg PO TID [facility] Last Admin: 03/10/18 17:20 Dose: Not Given Darbepoetin Rivera (Aranesp) 40 mcg SQ Q7D [facility] Last Admin: 03/09/18 13:39 Dose: 40 mcg Docusate Sodium (Colace Oral Soln) 100 mg PO BID [facility] Last Admin: 03/10/18 09:04 Dose: 100 mg Furosemide (Lasix) 80 mg IV Q12H [facility] Last Admin: 03/10/18 09:05 Dose: 80 mg Gabapentin (Neurontin) 100 mg PO TID [facility] Last Admin: 03/10/18 17:21 Dose: Not Given Heparin Sodium (Porcine) (Heparin) 5,000 unit SQ Q8HR [facility] Last Admin: 03/10/18 09:04 Dose: 5,000 unit Hydralazine HCl (Apresoline) 40 mg IVP Q6HR PRN PRN Reason: Blood Pressure - High Last Admin: 03/03/18 16:55 Dose: 40 mg Hydralazine HCl (Apresoline) 100 mg PO TID [facility] Last Admin: 03/10/18 17:20 Dose: Not Given Valproic Acid 750 mg/ Sodium (Chloride) 57.5 mls @ 50 mls/hr IVPB TID [facility] Last Admin: 03/10/18 09:01 Dose: 50 mls/hr Cefepime HCl 1 gm/ Sodium (Chloride) 50 mls @ 100 mls/hr IVPB DAILY@1700 [facility] Last Admin: 03/09/18 18:09 Dose: 100 mls/hr Insulin Aspart (Novolog) 0 unit SQ Q4H [facility]; Protocol Last Admin: 03/10/18 13:15 Dose: 4 unit Labetalol HCl (Trandate) 400 mg PO TID [facility] Last Admin: 03/10/18 17:21 Dose: Not Given Losartan Potassium (Cozaar) 50 mg PO DAILY [facility] Last Admin: 03/10/18 09:03 Dose: 50 mg Miscellaneous Information (Potassium Per Protocol) 1 each MISCELLANE DAILY PRN ; Protocol PRN Reason: Per Protocol Miscellaneous Information (Magnesium Per Protocol) 1 each MISCELLANE DAILY PRN ; Protocol PRN Reason: Per Protocol Miscellaneous Information (Pharmacy To Dose Iv Vancomycin) 1 each MISCELLANE DIRECTED PRN PRN Reason: Per Protocol Naloxone HCl (Narcan) 0.2 mg IV Q2M PRN PRN Reason: Opioid Reversal Pantoprazole Sodium (Protonix) 40 mg IVP DAILY [facility] Last Admin: 03/10/18 09:02 Dose: 40 mg Tamsulosin HCl (Flomax) 0.4 mg PO DAILY [facility] Last Admin: 03/10/18 09:02 Dose: 0.4 mg Thiamine HCl (Vitamin B-1) 100 mg IVP DAILY [facility] Last Admin: 03/10/18 09:02 Dose: 100 mg 03/11/2018 remains unresponsive. Tolerating trach collar without respiratory distress. egg worker met with patient's sister Rashida, who is going to petition for guardianship. Request CODE STATUS be changed to DO NOT RESUSCITATE. Patient unresponsive, Unable to obtain review of systems. Active Medications Generic Name Dose Route Start Last Admin Trade Name Freq PRN Reason Stop Dose Admin Acetaminophen 325 mg 02/24/18 12:11 03/07/18 17:27 Tylenol Tab PO 325 mg Q6HR PRN Administration Fever and/ or Mild Pain Albuterol/Ipratropium 3 ml 02/20/18 12:13 03/07/18 14:28 Duoneb 0.5 Mg-3 Mg/3 Ml Soln INHALATION 3 ml RT-Q2H PRN Administration Shortness Of Breath Or Wheezing Albuterol/Ipratropium 3 ml 03/05/18 08:00 03/11/18 15:26 Duoneb 0.5 Mg-3 Mg/3 Ml Soln INHALATION 3 ml RT-QID [facility] Administration Amlodipine Besylate 10 mg 02/21/18 10:30 03/11/18 09:36 Norvasc PO 10 mg DAILY [facility] Administration Atorvastatin Calcium 10 mg 02/20/18 21:00 03/10/18 20:25 Lipitor PO 10 mg HS [facility] Administration Chlorhexidine Gluconate 15 ml 02/20/18 16:26 03/11/18 09:38 Peridex MUCOUS MEM 15 ml BID [facility] Administration Clonidine 0.2 mg 03/03/18 11:00 03/11/18 09:36 Catapres PO 0.2 mg TID [facility] Administration Darbepoetin Rivera 40 mcg 03/02/18 12:00 03/09/18 13:39 Aranesp SQ 40 mcg Q7D [facility] Administration Docusate Sodium 100 mg 03/09/18 21:00 03/11/18 09:37 Colace Oral Soln PO 100 mg BID [facility] Administration Furosemide 80 mg 02/23/18 21:00 03/11/18 09:36 Lasix IV 80 mg Q12H [facility] Administration Gabapentin 100 mg 02/20/18 16:00 03/11/18 09:36 Neurontin PO 100 mg TID [facility] Administration Heparin Sodium (Porcine) 5,000 unit 02/20/18 16:00 03/11/18 09:37 Heparin SQ 5,000 unit Q8HR [facility] Administration Hydralazine HCl 40 mg 02/24/18 09:09 03/03/18 16:55 Apresoline IVP 40 mg Q6HR PRN Administration Blood Pressure - High Hydralazine HCl 100 mg 03/03/18 11:00 03/11/18 09:36 Apresoline PO 100 mg TID [facility] Administration Valproic Acid 750 mg/ Sodium 57.5 mls @ 50 mls/hr 02/24/18 16:00 03/11/18 09: 36 Chloride IVPB 50 mls/hr TID [facility] Administration Vancomycin HCl 1,500 mg/ 250 mls @ 125 mls/hr 03/11/18 18:00 Sodium Chloride IVPB 03/11/18 19:59 ONCE ONE Insulin Aspart 0 unit 02/22/18 16:00 03/11/18 12:57 Novolog SQ 4 unit Q4H [facility] Administration Protocol Labetalol HCl 400 mg 02/21/18 10:30 03/11/18 09:37 Trandate PO 400 mg TID [facility] Administration Losartan Potassium 50 mg 03/05/18 09:15 03/11/18 09:38 Cozaar PO 50 mg DAILY [facility] Administration Miscellaneous Information 1 each 03/05/18 05:35 Potassium Per Protocol MISCELLANE DAILY PRN Per Protocol Protocol Miscellaneous Information 1 each 03/06/18 06:23 Magnesium Per Protocol MISCELLANE DAILY PRN Per Protocol Protocol Miscellaneous Information 1 each 03/08/18 19:49 Pharmacy To Dose Iv Vancomycin MISCELLANE DIRECTED PRN Per Protocol Naloxone HCl 0.2 mg 02/20/18 02:10 Narcan IV Q2M PRN Opioid Reversal Pantoprazole Sodium 40 mg 03/04/18 09:00 03/11/18 09:37 Protonix IVP 40 mg DAILY [facility] Administration Tamsulosin HCl 0.4 mg 02/20/18 09:00 03/11/18 09:36 Flomax PO 0.4 mg DAILY [facility] Administration Thiamine HCl 100 mg 02/23/18 14:30 03/11/18 09:37 Vitamin B-1 IVP 100 mg DAILY [facility] Administration 03/13/2018 no overnight events. Received hemodialysis yesterday. Diuresing well on Lasix, weight decreased. Remains unresponsive, obtunded. Maintained on trach collar without respiratory distress. Maintained on IV antibiotics as per infectious disease. Repeat blood cultures pending. Afebrile. Tolerating tube feedings with no nausea vomiting or diarrhea. 03/14/2018 clinically, no changes. Hemodialysis today. egg worker obtaining public legal guardian. Maintain IV antibiotics. Afebrile, repeat blood cultures currently negative. Objective - Vital Signs Vital signs: Vital Signs Temp 97.6 F 03/14/18 21:00 Pulse 74 03/14/18 21:00 Resp 18 03/14/18 21:00 BP 164/79 03/14/18 21:00 Pulse Ox 96 03/14/18 21:00 Intake & Output 03/14/18 03/14/18 03/15/18 06:59 18:59 06:59 Intake Total 554 504 Output Total 200 50 Balance 354 504 -50 Weight 72.4 kg Intake: IV 50 Valproate Sodium 750 mg 50 In Sodium Chloride 0.9% 50 ml @ 50 mls/hr IVPB TID [facility] Rx#:[id number] Tube Feeding 504 504 Output: Urine 200 50 Uretheral (Delcid) 100 50 Other: Voiding Method Indwelling Catheter Indwelling Catheter # Voids 0 0 # Bowel Movements 1 ABP, PAP, CO, CI - Last Documented Arterial Blood Pressure 135/56 - Exam -GENERAL: The patient is sitting up in bed, unresponsive HEENT: Conjunctiva normal, no JVD CARDIOVASCULAR: S1 and S2 present. No murmurs, rubs, or gallops. -PULMONARY: Essentially clear to auscultation, no wheezing, no crackles. Occasional scattered rhonchi. ABDOMEN: Soft, nontender, nondistended, normoactive bowel sounds. No palpable organomegaly. PEG tube present EXTREMITIES: No cyanosis, clubbing, or pedal edema. -s/p right BKA -NEUROLOGICAL: unresponsive to verbal or painful stinuli, opens eyes spontaneously, not to commands. - Labs CBC & Chem 7: 03/15/18 08:40 03/15/18 08:40 Labs: Abnormal Lab Results - Last 24 Hours (Table) 03/13/18 03/14/18 03/14/18 Range/Units 23:49 03:44 07:47 RBC (4.30-5.90) m/uL Hgb (13.0-17.5) gm/dL Hct (39.0-53.0) % Lymphocytes # (1.0-4.8) k/uL Sodium (137-145) mmol/L Chloride (98-107) mmol/L Carbon Dioxide (22-30) mmol/L BUN (9-20) mg/dL Creatinine (0.66-1.25) mg/dL Glucose (74-99) mg/dL POC Glucose (mg/dL) 253 H 187 H 181 H (75-99) mg/dL 03/14/18 03/14/18 03/14/18 Range/Units 09:08 09:08 11:33 RBC 2.62 L (4.30-5.90) m/uL Hgb 7.5 L (13.0-17.5) gm/dL Hct 24.1 L (39.0-53.0) % Lymphocytes # 0.8 L (1.0-4.8) k/uL Sodium 132 L (137-145) mmol/L Chloride 97 L (98-107) mmol/L Carbon Dioxide 20 L (22-30) mmol/L BUN 79 H (9-20) mg/dL Creatinine 5.31 H (0.66-1.25) mg/dL Glucose 205 H (74-99) mg/dL POC Glucose (mg/dL) 171 H (75-99) mg/dL 03/14/18 03/14/18 Range/Units 16:24 19:46 RBC (4.30-5.90) m/uL Hgb (13.0-17.5) gm/dL Hct (39.0-53.0) % Lymphocytes # (1.0-4.8) k/uL Sodium (137-145) mmol/L Chloride (98-107) mmol/L Carbon Dioxide (22-30) mmol/L BUN (9-20) mg/dL Creatinine (0.66-1.25) mg/dL Glucose (74-99) mg/dL POC Glucose (mg/dL) 169 H 234 H (75-99) mg/dL Microbiology - Last 24 Hours (Table) 03/11/18 11:43 Blood Culture - Preliminary Blood No Growth after 72 hours Assessment and Plan Assessment: -Acute hypoxic respiratory failure: Secondary to congestive heart failure chronic diastolic dysfunction with acute exacerbation patient. Status post mechanical ventilation dependent , currently trach collared. -Episode of seizure believed to be secondary to profound hypoglycemia on admission and encephalopathy EEG showed diffuse slowing. patient has metabolic and toxic encephalopathy -acute on chronic renal failure , receiving hemodialysis -metabolic encephalopathy , possibly secondary to all above -Sepsis with possible tracheobronchitis, positive sputum culture with MSSA and Serratia marcescens. Blood cultures positive for staph Schleiferi SS. 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 -No code, no CPR, no intubation as requested per sister. Plan: Continue on current medication regime ,monitoring and symptomatic treatment. Maintain IV antibiotics as per infectious disease, repeat blood cultures pending. Social work obtaining public legal guardianship. Hemodialysis as per nephrology. Maintain supportive care. Prognosis poor. Further recommendations to follow. The impression and plan of care has been dictated as directed. : I performed a history and examination of this patient, discussed the same with the dictator. I agree with the dictator's note ,documented as a scribe. Any additional findings or plans will be noted.
--- NOTE | 2018-03-15 14:30 | P.PN ---
Subjective Progress Note Date: 03/15/18 Principal diagnosis: This is a 67-year-old male known with chronic kidney disease stage IV, secondary to diabetic nephropathy with biopsy. He came in because of hyperkalemia acute kidney injury. In the emergency room he became hypoglycemic , with a blood sugar less than 20 and became unconscious. He was started on dialysis Saturday schedule and remains obtunded and unconscious. He barely opens his eyes but does not make any eye contact or follow any commands. He has a tract and a PEG. He is in no code patient Objective - Vital Signs Vital signs: Vital Signs Temp 98.8 F 03/15/18 05:00 Pulse 77 03/15/18 11:34 Resp 18 03/15/18 08:00 BP 132/69 03/15/18 05:00 Pulse Ox 97 03/15/18 07:27 Intake & Output 03/14/18 03/15/18 03/15/18 18:59 06:59 18:59 Intake Total 675 682 6582 Output Total 50 450 Balance 504 774 742 Weight 74 kg Intake: IV 50 Valproate Sodium 750 mg 50 In Sodium Chloride 0.9% 50 ml @ 50 mls/hr IVPB [facility] Rx#:[id number] Intake, IV Titration 250 380 Amount IV Fluid Continuation 1, 80 000 ml @ 0 mls/hr IV .[facility] Rx#:[id number] Valproate Sodium 750 mg 50 In Sodium Chloride 0.9% 50 ml @ 50 mls/hr IVPB [facility] Rx#:[id number] Vancomycin 1,500 mg In 250 250 Sodium Chloride 0.9% 250 ml @ 125 mls/hr IVPB [facility] Rx#:[id number] Oral 0 Tube Feeding 504 524 692 Other 120 Output: Urine 50 450 Uretheral (Delcid) 50 150 Other: Voiding Method Indwelling Catheter Indwelling Catheter Indwelling Catheter # Voids 0 # Bowel Movements 1 1 ABP, PAP, CO, CI - Last Documented Arterial Blood Pressure 135/56 On examination he is on track and PEG. He is on tube feeding. Pupils are equal neck is supple no facial asymmetry Lungs are clear to auscultation with diminished air entry bilaterally Heart sounds are unremarkable for any murmur rub gallop Abdomen soft nontender Extremity exam was no edema He has a right BKA remote. Neurologically as mentioned above obtunded barely opens his eyes to pain but not to command - Labs CBC & Chem 7: 03/15/18 08:40 03/15/18 08:40 Labs: Abnormal Lab Results - Last 24 Hours (Table) 03/14/18 03/14/18 03/14/18 Range/Units 16:24 19:46 23:54 RBC (4.30-5.90) m/uL Hgb (13.0-17.5) gm/dL Hct (39.0-53.0) % Plt Count (150-450) k/uL Sodium (137-145) mmol/L BUN (9-20) mg/dL Creatinine (0.66-1.25) mg/dL Glucose (74-99) mg/dL POC Glucose (mg/dL) 169 H 234 H 238 H (75-99) mg/dL 03/15/18 03/15/18 03/15/18 Range/Units 04:14 08:40 08:40 RBC 2.59 L (4.30-5.90) m/uL Hgb 7.6 L (13.0-17.5) gm/dL Hct 23.3 L (39.0-53.0) % Plt Count 467 H (150-450) k/uL Sodium 136 L (137-145) mmol/L BUN 55 H (9-20) mg/dL Creatinine 4.23 H (0.66-1.25) mg/dL Glucose 180 H (74-99) mg/dL POC Glucose (mg/dL) 187 H (75-99) mg/dL 03/15/18 03/15/18 Range/Units 08:51 12:13 RBC (4.30-5.90) m/uL Hgb (13.0-17.5) gm/dL Hct (39.0-53.0) % Plt Count (150-450) k/uL Sodium (137-145) mmol/L BUN (9-20) mg/dL Creatinine (0.66-1.25) mg/dL Glucose (74-99) mg/dL POC Glucose (mg/dL) 197 H 259 H (75-99) mg/dL Microbiology - Last 24 Hours (Table) 03/11/18 11:43 Blood Culture - Preliminary Blood No Growth after 96 hours Assessment and Plan Assessment: Impression 1. Chronic kidney disease secondary diabetic nephropathy stage IV, with acute kidney injury. Hemodialysis dependent dialysis, dialysis was started on the and currently on Saturday schedule. Urine output is marginal in the oliguric range. No recovery of renal function yet. 2. Status post permacath placement this morning 03/02/2018. Kulwant removed from the right groin. 2. Ventilator dependent respiratory failure on 30% FiO2 stable. Currently on trach off of the ventilator 3. Remote right BKA and left toe amputation. 4. Hypoglycemia and encephalopathy with blood sugar less than 20 at the time of admission. Slightly better 5. History of hep C. 6. Anemia of chronic kidney disease. Iron saturation is 10% dated 02/21/2018. 7. Trach and PEG placed Recommendation. 1. Maintain dialysis on Saturday schedule. 2. Monitor calcium phosphorus albumin, hemoglobin iron saturation and adjust medications as necessary
[2018-03-15 15:54] LABS: Glucose,Whole Blood 241 mg/dL (75-99)
[2018-03-15 20:20] LABS: Glucose,Whole Blood 234 mg/dL (75-99)
[2018-03-15] MEDS: ATORVASTATIN 10 MG TAB PO SCH (22:35)
--- NOTE | 2018-03-15 23:10 | PN ---
PROGRESS NOTE DATE OF SERVICE: 03/15/2018. REASON FOR FOLLOWUP: Positive blood culture. INTERVAL HISTORY: The patient is currently afebrile. He has been breathing comfortably. Hemodynamically stable, tolerating his tube feeds. No diarrhea. Unable to provide any history. EXAMINATION: Blood pressure 126/82 with a pulse of 79, temperature 98.1. He is 100% on trach collar. GENERAL DESCRIPTION: An elderly male lying in bed in no distress. RESPIRATORY SYSTEMS: Unlabored breathing with decreased breath sounds in the bases. No wheeze. HEART: S1, S2. Regular rate and rhythm. ABDOMEN: Soft. LABS: Hemoglobin 7.6, white count 7.3, BUN 55, creatinine 4.23. Blood culture repeat has been negative. DIAGNOSTIC IMPRESSION AND PLAN: Patient with positive blood culture in a patient who does have a subclavian catheter, currently being covered with vancomycin, completing a total course of therapy. Watching his clinical course closely. Continue supportive care. MMODL / IJN: [id number] /
[2018-03-15 23:59] LABS: Glucose,Whole Blood 224 mg/dL (75-99)
[2018-03-16] MEDS: HEPARIN SODIUM,PORCINE 5,000 UNIT/ML 1 ML VIAL SQ SCH ×3 (00:06→16:52)
[2018-03-16] MEDS: INSULIN ASPART 100 UNIT/ML 1 ML 10 ML VIAL SQ SCH ×6 (00:06→20:57)
[2018-03-16 04:50] LABS: Glucose,Whole Blood 111 mg/dL (75-99)
[2018-03-16] MEDS: IPRATROPIUM-ALBUTEROL 3 ML NEB INHALATION SCH ×4 (07:16→21:11)
[2018-03-16 08:04] LABS: Basophils % (A) 0 %; Eosinophils # (A) 0.1 k/uL (0-0.7); Eosinophils % (A) 2 %; HCT 22.8 % (39.0-53.0); Hypochromasia Slight; Lymphocytes # (A) 1.2 k/uL (1.0-4.8); Lymphocytes % (A) 17 %; MCHC 30.6 g/dL (31.0-37.0); MCV 91.3 fL (80.0-100.0); Mean Platelet Volume 6.9; Monocytes # (A) 0.8 k/uL (0-1.0); Monocytes % (A) 12 %; Neutrophils # (A) 4.7 k/uL (1.3-7.7); Neutrophils % (A) 68 %; Platelet Count 447 k/uL (150-450); WBC 6.9 k/uL (3.8-10.6)
[2018-03-16 08:13] LABS: Calcium 9.1 mg/dL (8.4-10.2); Potassium 4.4 mmol/L (3.5-5.1)
[2018-03-16 08:20] LABS: Glucose,Whole Blood 195 mg/dL (75-99)
[2018-03-16] MEDS: amLODIPine 10 MG TAB PO SCH (08:40)
[2018-03-16] MEDS: DOCUSATE ORAL SOLN 100 MG/10 ML CUP PO SCH ×2 (08:40→22:18)
[2018-03-16] MEDS: CHLORHEXIDINE GLUCONATE 15 ML CUP MUCOUS MEM SCH ×2 (08:40→22:18)
[2018-03-16] MEDS: cloNIDine HCL 0.1 MG TAB PO SCH ×3 (08:40→22:19)
[2018-03-16] MEDS: FUROSEMIDE 10 MG/ML 10 ML VIAL IV SCH ×2 (08:41→22:18)
[2018-03-16] MEDS: hydrALAZINE HCL 50 MG TAB PO SCH ×3 (08:41→22:20)
[2018-03-16] MEDS: LABETALOL 200 MG TAB PO SCH ×3 (08:41→22:21)
[2018-03-16] MEDS: GABAPENTIN 100 MG CAP PO SCH ×3 (08:41→22:20)
[2018-03-16] MEDS: TAMSULOSIN 0.4 MG CAP.ER.24H PO SCH (08:42)
[2018-03-16] MEDS: PANTOPRAZOLE 40 MG/10 ML VIAL IVP SCH (08:42)
[2018-03-16] MEDS: THIAMINE 100 MG/ML 2 ML VIAL IVP SCH (08:42)
[2018-03-16] MEDS: LOSARTAN 50 MG TAB PO SCH (08:42)
[2018-03-16] MEDS: VALPROATE SODIUM 750 MG in SODIUM CHLORIDE 0.9% 50 ML IVPB SCH ×3 (08:52→23:17)
--- NOTE | 2018-03-16 10:47 | P.PN ---
Subjective Progress Note Date: 03/16/18 Principal diagnosis: This is a 67-year-old male known with chronic kidney disease stage IV, secondary to biopsy-proven diabetic nephropathy. He came in because of hyperkalemia and acute kidney injury. In the emergency room he became hypoglycemic, with a blood sugar less than 20 and became unconscious. He was started on dialysis Saturday schedule and remains obtunded and unconscious. He barely opens his eyes but does not make any eye contact or follow any commands. He has a tracheostomy on the oxygen and being fed via PEG tube. He is in no code patient. 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 Objective - Vital Signs Vital signs: Vital Signs Temp 97.9 F 03/16/18 05:00 Pulse 77 03/16/18 07:30 Resp 16 03/16/18 05:00 BP 114/65 03/16/18 05:00 Pulse Ox 100 03/16/18 05:00 Intake & Output 03/15/18 03/16/18 03/16/18 18:59 06:59 18:59 Intake Total 1864 1879 Output Total 900 200 Balance 964 1679 Weight 69 kg Intake: Intake, IV Titration 380 Amount IV Fluid Continuation 1, 80 000 ml @ 0 mls/hr IV [facility] Rx#:[id number] Valproate Sodium 750 mg 50 In Sodium Chloride 0.9% 50 ml @ 50 mls/hr IVPB [facility]ID [facility] Rx#:[id number] Vancomycin 1,500 mg In 250 Sodium Chloride 0.9% 250 ml @ 125 mls/hr IVPB [facility] Rx#:[id number] Oral 0 0 Tube Feeding 1364 1819 Other 120 60 Output: Urine 900 200 Uretheral (Delcid) 300 200 Other: Voiding Method Indwelling Catheter Indwelling Catheter # Voids 0 # Bowel Movements 1 ABP, PAP, CO, CI - Last Documented Arterial Blood Pressure 135/56 On examination he remains obtunded, on PEG and trach with oxygen. HEENT exam difficult exam no JVP neck supple no facial asymmetry Lungs clear to auscultation fair air entry bilaterally Heart sounds are unremarkable for any murmur rub gallop Abdomen is soft nontender distended nontender Extremity exam was BKA on the right. No edema of the right. Neurologically as mentioned obtunded. - Labs CBC & Chem 7: 03/16/18 07:50 03/16/18 07:50 Labs: Abnormal Lab Results - Last 24 Hours (Table) 03/15/18 03/15/18 03/15/18 Range/Units 12:13 15:53 20:19 RBC (4.30-5.90) m/uL Hgb (13.0-17.5) gm/dL Hct (39.0-53.0) % MCHC (31.0-37.0) g/dL Sodium (137-145) mmol/L BUN (9-20) mg/dL Creatinine (0.66-1.25) mg/dL Glucose (74-99) mg/dL POC Glucose (mg/dL) 259 H 241 H 234 H (75-99) mg/dL 03/15/18 03/16/18 03/16/18 Range/Units 23:57 04:48 07:50 RBC 2.50 L (4.30-5.90) m/uL Hgb 7.0 L (13.0-17.5) gm/dL Hct 22.8 L (39.0-53.0) % MCHC 30.6 L (31.0-37.0) g/dL Sodium (137-145) mmol/L BUN (9-20) mg/dL Creatinine (0.66-1.25) mg/dL Glucose (74-99) mg/dL POC Glucose (mg/dL) 224 H 111 H (75-99) mg/dL 03/16/18 03/16/18 Range/Units 07:50 08:07 RBC (4.30-5.90) m/uL Hgb (13.0-17.5) gm/dL Hct (39.0-53.0) % MCHC (31.0-37.0) g/dL Sodium 136 L (137-145) mmol/L BUN 77 H (9-20) mg/dL Creatinine 5.38 H (0.66-1.25) mg/dL Glucose 177 H (74-99) mg/dL POC Glucose (mg/dL) 195 H (75-99) mg/dL Microbiology - Last 24 Hours (Table) 03/11/18 11:43 Blood Culture - Preliminary Blood No Growth after 96 hours Assessment and Plan Assessment: Impression 1. Chronic kidney disease secondary diabetic nephropathy stage IV, with acute kidney injury. Hemodialysis dependent dialysis, dialysis was started on the and currently on Saturday schedule. Urine output is marginal in the oliguric range. No recovery of renal function yet. 2. Status post permacath placement 03/02/2018. Kulwant removed from the right groin. 2. He had Ventilator dependent respiratory failure and was extubated and is Currently on trach off of the ventilator 3. Remote right BKA and left toe amputation. 4. Hypoglycemia and encephalopathy with blood sugar less than 20 at the time of admission. No change 5. History of hep C. 6. Anemia of chronic kidney disease. Iron saturation is 10% dated 02/21/2018. 7. Trach and PEG placed Recommendation. 1. Maintain dialysis on Saturday schedule. 2. Monitor calcium phosphorus albumin, hemoglobin iron saturation and adjust medications as necessary
[2018-03-16 11:28] LABS: Glucose,Whole Blood 293 mg/dL (75-99)
[2018-03-16] MEDS: DARBEPOETIN ALFA 60 MCG/0.3 ML SYRINGE SQ SCH (13:18)
--- NOTE | 2018-03-16 13:43 | P.PN ---
Subjective Patient is a 67-year-old -Cypriot male who is being followed by the neurology service for possible seizure. Patient was brought to [facility] emergency room with shortness of breath. He was found to have significant pulmonary edema. Patient does have stage IV chronic kidney disease. Patient was being treated in the emergency room when one of the nurses noted patient to be unresponsive. Patient had questionable jerking activity. Patient had significant hypoglycemia in the 20s. He was given D50, intubated and sedated. Patient is currently in the ICU. Computed tomography scan of the brain was done which showed no acute abnormality. Computed tomography scan did show evidence of mild generalized atrophy. Patient was noted to have some rhythmic jerking. Patient was taken off propofol and had an EEG done. EEG showed generalized slowing of the background rhythm. EEG also showed significant triphasic waves which is commonly seen in hepatic pathology. Myoclonic activity was described. Patient was started on Depakote 500 mg every 12 hours IV. Staff reports no further jerking movements since starting Depakote. Patient remains sedated with propofol and on mechanical ventilation. acute kidney injury on chronic kidney disease. Patient has chronic kidney disease stage IV secondary to biopsy-proven diabetic kidney disease with severe chronicity. His baseline creatinine has been in the range of 4-5. Creatinine was 7.65 on admission 02/23/2018 this is my first day taking care of the pt , pt is still on vent , he has been off sedation , however he is still not waking up as expected . pt could have metabolic encephalopathy , vs other . pt with acute on chronic Kidney disease stage IV. nephrology are following the case .Creatinine was 7.65 on admission and is 5.99 today. pt is been seen by neurology who recommended to repeat the EEG and result is pending.pt had subtherapeutic level and extra doses were provided for him yesterday EEG from 02/21: abnormal with significant triphasic waves which is commonly seen in hepatic encephalopahty pt still does not respond to pain stimuli. despite been off sedation since this morning. pupils are equal and reactive to light, meningeal signs were absent when i examined the pt this morning pt has h/o Hep C and B , we will check ammonia level and other work up like B12 ,thyroid function test, syphlis screen ,repeat CT of the head ,with neurology follow up. no fever , no leukocytosis 02/24/2018 no change from yesterday in his mental status from the first time a saw her , still unresponsive , neurologist team is following the pt and recommended repeat EEG. critical care input is appreciated . ammonia level and TSH were negative , repeat CT head is negative for acute process as well 02/25/2018 Patient remains unresponsive as before. Repeat EEG showing moderate encephalopathy, significant triphasic waves consistent with hepatic disease. Occasional sharp wave consistent with due to seizure threshold. But no generalized epileptiform discharge. Patient is a plan to have trach placed on the surgical site. As well as dialysis catheter for dialysis. Patient has Delcid catheter with 40 mL in the bag. There is purulent discharge from the penis. Discussed with staff. Check culture for the discharge, change. AND CHECK BLADDER SCAN 02/26/2018 Patient remains unresponsive, the same. Patient had a dialysis catheter placed. Than his going for hemodialysis currently. Patient has been evaluated by it infrastructure specialist on their input is appreciated. Patient is planned for going for PEG and tracheostomy possibly tomorrow, as per family wishes. To call care consult is appreciated. He has positive sputum culture was fracture and staphylococcus. urine discharge so there was has been changed. Urine culture is pending. We'll consult infectious diseases specialist. Patient with mild leukocytosis 02/27/2018 No improvement in the patient mental status, he remains unresponsive and intubated. Went for dialysis yesterday and today. And PEG tube with check estimated are planned for the patient's in 1 or 2 days. Prognosis remains very poor. The sputum culture is growing Serratia and staph aureus. ID consult is appreciated and patient was started on cefepime. Also patient got IV vancomycin doses . Pulmonary/critical care input is appreciated. Hemoglobin at 7.1. No leukocytosis. He had fever yesterday at 100.2 02/28/2018 pt is unresponsive, intubated , he is undergoing hemodialysis , and he is on antibiotic , he is responding a little bit to suctioning his mouth but only minimally , prognosis remains poor and guarded. pt had PEG and treacheostomy, he remains on cefepime per ID recommendation . pt has Serratia marcescens and staph aureus. while his penile c/s showing many gr-ve bacilli (areobic and unaerobic) and gram positive cocci (unaerobic) 03/03/2018 Patient is unresponsive, has tracheostomy and PEG tube. His undergoing hemodialysis. He is on antibiotics for infection his respiratory and urinary systems. Patient is smoking a grimace to painful stimuli but no more more than that. Continue with supportive care. Prognosis remains very poor 03/04/2018 No change in mental status of the patient, he remains unresponsive. Status post tracheostomy and PEG tube insertion. Continue with hemo-dialysis. And nephrology team are following the patient Continue with antibiotic. Continue with valproate. Critical care/pulmonary team evaluation and follow-up is appreciated. He is off mechanical ventilation currently and continue with trach collar. Continue with Protonix for GI prophylaxis. Patient has some grimace to painful stimuli, however unresponsive to verbal or tactile stimuli. Neurological evaluation is recommended with some workup like EKG and CAT scan of the brain 03/15/2018 Patient remains unresponsive, and change from last time I saw the patient. Patient remains on antibiotic as per ID recommendation. Blood pressure medication and his blood pressure is now is currently better controlled .patient is currently on hemodialysis on Saturday, Saturday and Saturday schedule. Nephrology team are following the patient Prognosis remains poor 03-16-18 Patient remains unresponsive, nephrology follow us is appreciated, pt was started on Drabepoetin oral by nephrology team.patient remains on hemodialysis as scheduled. He has a tracheostomy on the oxygen and being fed via PEG tube. CBC and BMP looks stable compared to previous results Prognosis remains poor Objective - Vital Signs Vital signs: Vital Signs Temp 97.9 F 03/16/18 05:00 Pulse 78 03/16/18 11:03 Resp 16 03/16/18 05:00 BP 114/65 03/16/18 05:00 Pulse Ox 100 03/16/18 05:00 Intake & Output 03/15/18 03/16/18 03/16/18 18:59 06:59 18:59 Intake Total 1864 1879 Output Total 900 200 Balance 964 1679 Weight 69 kg Intake: Intake, IV Titration 380 Amount IV Fluid Continuation 1, 80 000 ml @ 0 mls/hr IV [facility] Rx#:[id number] Valproate Sodium 750 mg 50 In Sodium Chloride 0.9% 50 ml @ 50 mls/hr IVPB TID [facility] [place] Rx#:[id number] Vancomycin 1,500 mg In 250 Sodium Chloride 0.9% 250 ml @ 125 mls/hr IVPB [facility] Rx#:[id number] Oral 0 0 Tube Feeding 1364 1819 Other 120 60 Output: Urine 900 200 Uretheral (Delcid) 300 200 Other: Voiding Method Indwelling Catheter Indwelling Catheter # Voids 0 # Bowel Movements 1 ABP, PAP, CO, CI - Last Documented Arterial Blood Pressure 135/56 - Exam -GENERAL: The patient is unresponsive , does not open eyes,intubated. not in any acute distress. Well developed, HEENT: Pupils are round and equally reacting to light. EOMI. No scleral icterus. No conjunctival pallor. Normocephalic, atraumatic. No pharyngeal erythema. No thyromegaly. CARDIOVASCULAR: S1 and S2 present. No murmurs, rubs, or gallops. -PULMONARY: Chest is clear to auscultation, no wheezing. Bilateral scattered crackles. ABDOMEN: Soft, nontender, nondistended, normoactive bowel sounds. No palpable organomegaly. MUSCULOSKELETAL: No joint swelling or deformity. EXTREMITIES: No cyanosis, clubbing, or pedal edema. -s/p right BKA -NEUROLOGICAL: unresponsive to verbal or painful stinuli, does not open eyes. SKIN: No rashes. - Labs CBC & Chem 7: 03/16/18 07:50 03/16/18 07:50 Labs: Abnormal Lab Results - Last 24 Hours (Table) 03/15/18 03/15/18 03/15/18 Range/Units 15:53 20:19 23:57 RBC (4.30-5.90) m/uL Hgb (13.0-17.5) gm/dL Hct (39.0-53.0) % MCHC (31.0-37.0) g/dL Sodium (137-145) mmol/L BUN (9-20) mg/dL Creatinine (0.66-1.25) mg/dL Glucose (74-99) mg/dL POC Glucose (mg/dL) 241 H 234 H 224 H (75-99) mg/dL 03/16/18 03/16/18 03/16/18 Range/Units 04:48 07:50 07:50 RBC 2.50 L (4.30-5.90) m/uL Hgb 7.0 L (13.0-17.5) gm/dL Hct 22.8 L (39.0-53.0) % MCHC 30.6 L (31.0-37.0) g/dL Sodium 136 L (137-145) mmol/L BUN 77 H (9-20) mg/dL Creatinine 5.38 H (0.66-1.25) mg/dL Glucose 177 H (74-99) mg/dL POC Glucose (mg/dL) 111 H (75-99) mg/dL 03/16/18 03/16/18 Range/Units 08:07 11:26 RBC (4.30-5.90) m/uL Hgb (13.0-17.5) gm/dL Hct (39.0-53.0) % MCHC (31.0-37.0) g/dL Sodium (137-145) mmol/L BUN (9-20) mg/dL Creatinine (0.66-1.25) mg/dL Glucose (74-99) mg/dL POC Glucose (mg/dL) 195 H 293 H (75-99) mg/dL Microbiology - Last 24 Hours (Table) 03/11/18 11:43 Blood Culture - Preliminary Blood No Growth after 96 hours Assessment and Plan Plan: Assessment and Plan -Acute hypoxic respiratory failure: Secondary to congestive heart failure chronic diastolic dysfunction with acute exacerbation patient , with other causes occluded. He was started on high-dose of Lasix. Continuing with the ventilatory support, diurese well improved creatinine with Lasix. Improving -possible seizure versus metabolic encephalopathy related to low glu , neurology team is following the pt , on depakote and level checked as per neuro team recommendation -acute on chronic renal failure , f/u with nephrology. Patient is getting hemodialysis -metabolic encephalopathy , possibly secondary to all above -Sepsis with possible tracheobronchitis, positive sputum culture. Patient on antibiotic. 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 -Hypotension is possibly secondary to sedation antidepressive medications will be held and restarted as needed. Hyperlipidemia -Episode of seizure believed to be secondary to hypoglycemia and encephalopathy EEG showed diffuse slowing. patient has metabolic and toxic encephalopathy -Possible Purulent discharge from the penile orifice. Culture: Many gram- negative and positive bacteria, see report DVT and GI px. pt is on heparin and protonix prognosis is very poor
[2018-03-16 16:30] LABS: Glucose,Whole Blood 236 mg/dL (75-99)
[2018-03-16] MEDS ORDERED: FUROSEMIDE 10 MG/ML 10 ML VIAL IV SCH (19:30)
[2018-03-16 19:53] LABS: Glucose,Whole Blood 224 mg/dL (75-99)
[2018-03-16] MEDS: ATORVASTATIN 10 MG TAB PO SCH (22:18)
[2018-03-16 23:54] LABS: Glucose,Whole Blood 244 mg/dL (75-99)
[2018-03-17] MEDS: HEPARIN SODIUM,PORCINE 5,000 UNIT/ML 1 ML VIAL SQ SCH ×4 (00:20→23:20)
[2018-03-17] MEDS: INSULIN ASPART 100 UNIT/ML 1 ML 10 ML VIAL SQ SCH ×7 (00:20→23:32)
--- NOTE | 2018-03-17 01:14 | PN ---
PROGRESS NOTE DATE OF SERVICE: 03/16/2018. REASON FOR FOLLOW UP: Positive blood culture. INTERVAL HISTORY: The patient is currently afebrile. He is hemodynamically stable. He seems to be tolerating his tube feeds. No diarrhea. He is currently waiting for placement. EXAMINATION: Blood pressure 125/57 with a pulse of 73, temperature 99. He is 99% on trach collar. General description is an elderly male lying in bed in no distress. Respiratory system unlabored breathing with decreased breath sounds at the bases. No wheeze. Heart S1, S2. Regular rate and rhythm. Abdomen soft. No tenderness. LABS: Hemoglobin is 7, white count 6.9, BUN of 77, creatinine 5.38. Blood culture repeat has been negative. DIAGNOSTIC IMPRESSION AND PLAN: Patient with culture in this patient who does have underlying right subclavian catheter for dialysis. Blood culture repeat has been negative. Vancomycin to be discontinued at the time of discharge. Continue supportive care. MMODL / IJN: [id number] /
[2018-03-17 04:17] LABS: Glucose,Whole Blood 231 mg/dL (75-99)
[2018-03-17] MEDS: IPRATROPIUM-ALBUTEROL 3 ML NEB INHALATION SCH ×4 (07:13→20:33)
[2018-03-17 07:56] LABS: Calcium 9.1 mg/dL (8.4-10.2); Potassium 4.7 mmol/L (3.5-5.1)
[2018-03-17 08:06] LABS: Vancomycin,Random 28.7 ug/mL
[2018-03-17 08:25] LABS: Glucose,Whole Blood 218 mg/dL (75-99)
[2018-03-17 08:32] LABS: Basophils % (A) 0 %; Eosinophils # (A) 0.1 k/uL (0-0.7); Eosinophils % (A) 1 %; HCT 22.1 % (39.0-53.0); Hypochromasia Slight; Lymphocytes # (A) 1.1 k/uL (1.0-4.8); Lymphocytes % (A) 18 %; MCH 29.2 pg (25.0-35.0); MCHC 31.6 g/dL (31.0-37.0); MCV 92.3 fL (80.0-100.0); Mean Platelet Volume 7.4; Monocytes # (A) 0.8 k/uL (0-1.0); Monocytes % (A) 13 %; Neutrophils # (A) 4.2 k/uL (1.3-7.7); Neutrophils % (A) 66 %; Platelet Count 439 k/uL (150-450); RBC 2.39 m/uL (4.30-5.90); WBC 6.3 k/uL (3.8-10.6)
[2018-03-17] MEDS ORDERED: amLODIPine 10 MG TAB PO SCH (09:00)
[2018-03-17] MEDS: DOCUSATE ORAL SOLN 100 MG/10 ML CUP PO SCH ×2 (10:10→22:45)
[2018-03-17] MEDS: CHLORHEXIDINE GLUCONATE 15 ML CUP MUCOUS MEM SCH ×2 (10:10→22:44)
[2018-03-17] MEDS: FUROSEMIDE 10 MG/ML 10 ML VIAL IV SCH (10:11)
[2018-03-17] MEDS: TAMSULOSIN 0.4 MG CAP.ER.24H PO SCH (10:12)
[2018-03-17] MEDS: GABAPENTIN 100 MG CAP PO SCH ×3 (10:12→22:46)
[2018-03-17] MEDS: LOSARTAN 50 MG TAB PO SCH (10:12)
[2018-03-17] MEDS: amLODIPine 10 MG TAB PO SCH (10:12)
[2018-03-17] MEDS: LABETALOL 200 MG TAB PO SCH ×3 (10:12→22:46)
[2018-03-17] MEDS: cloNIDine HCL 0.1 MG TAB PO SCH ×3 (10:12→22:46)
[2018-03-17] MEDS: hydrALAZINE HCL 50 MG TAB PO SCH ×3 (10:12→22:46)
[2018-03-17] MEDS: PANTOPRAZOLE 40 MG/10 ML VIAL IVP SCH (10:13)
[2018-03-17] MEDS: THIAMINE 100 MG/ML 2 ML VIAL IVP SCH (10:13)
[2018-03-17] MEDS: VALPROATE SODIUM 750 MG in SODIUM CHLORIDE 0.9% 50 ML IVPB SCH ×3 (11:38→22:58)
[2018-03-17 12:53] LABS: Glucose,Whole Blood 228 mg/dL (75-99)
[2018-03-17] MEDS: ACETAMINOPHEN TAB 325 MG TAB PO PRN (15:05)
--- NOTE | 2018-03-17 15:11 | P.PN ---
Subjective Patient is a 67-year-old -Iranian male who is being followed by the neurology service for possible seizure. Patient was brought to [facility] emergency room with shortness of breath. He was found to have significant pulmonary edema. Patient does have stage IV chronic kidney disease. Patient was being treated in the emergency room when one of the nurses noted patient to be unresponsive. Patient had questionable jerking activity. Patient had significant hypoglycemia in the 20s. He was given D50, intubated and sedated. Patient is currently in the ICU. Computed tomography scan of the brain was done which showed no acute abnormality. Computed tomography scan did show evidence of mild generalized atrophy. Patient was noted to have some rhythmic jerking. Patient was taken off propofol and had an EEG done. EEG showed generalized slowing of the background rhythm. EEG also showed significant triphasic waves which is commonly seen in hepatic pathology. Myoclonic activity was described. Patient was started on Depakote 500 mg every 12 hours IV. Staff reports no further jerking movements since starting Depakote. Patient remains sedated with propofol and on mechanical ventilation. acute kidney injury on chronic kidney disease. Patient has chronic kidney disease stage IV secondary to biopsy-proven diabetic kidney disease with severe chronicity. His baseline creatinine has been in the range of 4-5. Creatinine was 7.65 on admission 02/23/2018 this is my first day taking care of the pt , pt is still on vent , he has been off sedation , however he is still not waking up as expected . pt could have metabolic encephalopathy , vs other . pt with acute on chronic Kidney disease stage IV. nephrology are following the case .Creatinine was 7.65 on admission and is 5.99 today. pt is been seen by neurology who recommended to repeat the EEG and result is pending.pt had subtherapeutic level and extra doses were provided for him yesterday EEG from 02/21: abnormal with significant triphasic waves which is commonly seen in hepatic encephalopahty pt still does not respond to pain stimuli. despite been off sedation since this morning. pupils are equal and reactive to light, meningeal signs were absent when i examined the pt this morning pt has h/o Hep C and B , we will check ammonia level and other work up like B12 ,thyroid function test, syphlis screen ,repeat CT of the head ,with neurology follow up. no fever , no leukocytosis 02/24/2018 no change from yesterday in his mental status from the first time a saw her , still unresponsive , neurologist team is following the pt and recommended repeat EEG. critical care input is appreciated . ammonia level and TSH were negative , repeat CT head is negative for acute process as well 02/25/2018 Patient remains unresponsive as before. Repeat EEG showing moderate encephalopathy, significant triphasic waves consistent with hepatic disease. Occasional sharp wave consistent with due to seizure threshold. But no generalized epileptiform discharge. Patient is a plan to have trach placed on the surgical site. As well as dialysis catheter for dialysis. Patient has Delcid catheter with 40 mL in the bag. There is purulent discharge from the penis. Discussed with staff. Check culture for the discharge, change. AND CHECK BLADDER SCAN 02/26/2018 Patient remains unresponsive, the same. Patient had a dialysis catheter placed. Than his going for hemodialysis currently. Patient has been evaluated by brass buffer on their input is appreciated. Patient is planned for going for PEG and tracheostomy possibly tomorrow, as per family wishes. To call care consult is appreciated. He has positive sputum culture was fracture and staphylococcus. urine discharge so there was has been changed. Urine culture is pending. We'll consult infectious diseases specialist. Patient with mild leukocytosis 02/27/2018 No improvement in the patient mental status, he remains unresponsive and intubated. Went for dialysis yesterday and today. And PEG tube with check estimated are planned for the patient's in 1 or 2 days. Prognosis remains very poor. The sputum culture is growing Serratia and staph aureus. ID consult is appreciated and patient was started on cefepime. Also patient got IV vancomycin doses . Pulmonary/critical care input is appreciated. Hemoglobin at 7.1. No leukocytosis. He had fever yesterday at 100.2 02/28/2018 pt is unresponsive, intubated , he is undergoing hemodialysis , and he is on antibiotic , he is responding a little bit to suctioning his mouth but only minimally , prognosis remains poor and guarded. pt had PEG and treacheostomy, he remains on cefepime per ID recommendation . pt has Serratia marcescens and staph aureus. while his penile c/s showing many gr-ve bacilli (areobic and unaerobic) and gram positive cocci (unaerobic) 03/03/2018 Patient is unresponsive, has tracheostomy and PEG tube. His undergoing hemodialysis. He is on antibiotics for infection his respiratory and urinary systems. Patient is smoking a grimace to painful stimuli but no more more than that. Continue with supportive care. Prognosis remains very poor 03/04/2018 No change in mental status of the patient, he remains unresponsive. Status post tracheostomy and PEG tube insertion. Continue with hemo-dialysis. And nephrology team are following the patient Continue with antibiotic. Continue with valproate. Critical care/pulmonary team evaluation and follow-up is appreciated. He is off mechanical ventilation currently and continue with trach collar. Continue with Protonix for GI prophylaxis. Patient has some grimace to painful stimuli, however unresponsive to verbal or tactile stimuli. Neurological evaluation is recommended with some workup like EKG and CAT scan of the brain 03/15/2018 Patient remains unresponsive, and change from last time I saw the patient. Patient remains on antibiotic as per ID recommendation. Blood pressure medication and his blood pressure is now is currently better controlled .patient is currently on hemodialysis on Saturday, Saturday and Saturday schedule. Nephrology team are following the patient Prognosis remains poor 03-16-18 Patient remains unresponsive, nephrology follow us is appreciated, pt was started on Drabepoetin oral by nephrology team.patient remains on hemodialysis as scheduled. He has a tracheostomy on the oxygen and being fed via PEG tube. CBC and BMP looks stable compared to previous results Prognosis remains poor 03/17/2018 Patient remains unresponsive, nephrology follow us is appreciated, pt was started on Drabepoetin oral by nephrology team.patient remains on hemodialysis as scheduled. He has a tracheostomy on the oxygen and being fed via PEG tube. CBC and BMP looks stable compared to previous results Prognosis remains poor Objective - Vital Signs Vital signs: Vital Signs Temp 100.9 F H 03/17/18 12:03 Pulse 80 03/17/18 12:30 Resp 16 03/17/18 12:03 BP 131/68 03/17/18 12:03 Pulse Ox 97 03/17/18 12:03 Intake & Output 03/16/18 03/17/18 03/17/18 18:59 06:59 18:59 Intake Total 3830 854 536 Output Total 600 200 Balance 3230 654 536 Weight 75.5 kg 75.5 kg Intake: IV 100 50 Valproate Sodium 750 mg 100 50 In Sodium Chloride 0.9% 50 ml @ 50 mls/hr IVPB TID [facility] Rx#:[id number] Intake, IV Titration 120 Amount IV Fluid Continuation 1, 120 000 ml @ 0 mls/hr IV .DGTS [facility] Rx#:[id number] Oral 0 Tube Feeding 3520 804 536 Other 90 Output: Urine 600 200 Uretheral (Delcid) 300 Other: Voiding Method Indwelling Catheter Indwelling Catheter Indwelling Catheter ABP, PAP, CO, CI - Last Documented Arterial Blood Pressure 135/56 - Exam -GENERAL: The patient is unresponsive , does not open eyes,intubated. not in any acute distress. Well developed, HEENT: Pupils are round and equally reacting to light. EOMI. No scleral icterus. No conjunctival pallor. Normocephalic, atraumatic. No pharyngeal erythema. No thyromegaly. CARDIOVASCULAR: S1 and S2 present. No murmurs, rubs, or gallops. -PULMONARY: Chest is clear to auscultation, no wheezing. Bilateral scattered crackles. ABDOMEN: Soft, nontender, nondistended, normoactive bowel sounds. No palpable organomegaly. MUSCULOSKELETAL: No joint swelling or deformity. EXTREMITIES: No cyanosis, clubbing, or pedal edema. -s/p right BKA -NEUROLOGICAL: unresponsive to verbal or painful stinuli, does not open eyes. SKIN: No rashes. - Labs CBC & Chem 7: 03/17/18 06:38 03/17/18 06:38 Labs: Abnormal Lab Results - Last 24 Hours (Table) 03/16/18 03/16/18 03/16/18 Range/Units 16:28 19:52 23:52 RBC (4.30-5.90) m/uL Hgb (13.0-17.5) gm/dL Hct (39.0-53.0) % Sodium (137-145) mmol/L Carbon Dioxide (22-30) mmol/L BUN (9-20) mg/dL Creatinine (0.66-1.25) mg/dL Glucose (74-99) mg/dL POC Glucose (mg/dL) 236 H 224 H 244 H (75-99) mg/dL Phosphorus (2.5-4.5) mg/dL 03/17/18 03/17/18 03/17/18 Range/Units 04:15 06:38 06:38 RBC 2.39 L (4.30-5.90) m/uL Hgb 7.0 L (13.0-17.5) gm/dL Hct 22.1 L (39.0-53.0) % Sodium 135 L (137-145) mmol/L Carbon Dioxide 21 L (22-30) mmol/L BUN 101 H* (9-20) mg/dL Creatinine 6.60 H (0.66-1.25) mg/dL Glucose 207 H (74-99) mg/dL POC Glucose (mg/dL) 231 H (75-99) mg/dL Phosphorus (2.5-4.5) mg/dL 03/17/18 03/17/18 03/17/18 Range/Units 06:38 08:24 12:53 RBC (4.30-5.90) m/uL Hgb (13.0-17.5) gm/dL Hct (39.0-53.0) % Sodium (137-145) mmol/L Carbon Dioxide (22-30) mmol/L BUN (9-20) mg/dL Creatinine (0.66-1.25) mg/dL Glucose (74-99) mg/dL POC Glucose (mg/dL) 218 H 228 H (75-99) mg/dL Phosphorus 6.6 H (2.5-4.5) mg/dL Microbiology - Last 24 Hours (Table) 03/11/18 11:43 Blood Culture - Final Blood No Growth after 144 hours Assessment and Plan Plan: Assessment and Plan -Acute hypoxic respiratory failure: Secondary to congestive heart failure chronic diastolic dysfunction with acute exacerbation patient , with other causes occluded. He was started on high-dose of Lasix. Continuing with the ventilatory support, diurese well improved creatinine with Lasix. Improving -possible seizure versus metabolic encephalopathy related to low glu , neurology team is following the pt , on depakote and level checked as per neuro team recommendation -acute on chronic renal failure , f/u with nephrology. Patient is getting hemodialysis -metabolic encephalopathy , possibly secondary to all above -Sepsis with possible tracheobronchitis, positive sputum culture. Patient on antibiotic. 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 -Hypotension is possibly secondary to sedation antidepressive medications will be held and restarted as needed. Hyperlipidemia -Episode of seizure believed to be secondary to hypoglycemia and encephalopathy EEG showed diffuse slowing. patient has metabolic and toxic encephalopathy -Possible Purulent discharge from the penile orifice. Culture: Many gram- negative and positive bacteria, see report DVT and GI px. pt is on heparin and protonix prognosis is very poor
[2018-03-17 16:48] LABS: Glucose,Whole Blood 246 mg/dL (75-99)
--- NOTE | 2018-03-17 17:00 | PN ---
PROGRESS NOTE Patient is seen for followup for renal failure. Currently he remains dialysis- dependent. Patient is maintained on a Saturday, Saturday, Saturday schedule for dialysis. He also remains unresponsive, currently on a trach collar. On examination, blood pressure this morning 131/68, heart rate 76 per minute, T-max 100.9. EXAMINATION OF THE HEART: S1, S2. EXAMINATION OF LUNGS: Bilateral breath sounds are heard. ABDOMEN: Soft. Examination of lower extremities shows no edema. Patient has right BKA. Patient remains unresponsive. He is not moving any of his extremities. He does not respond to verbal stimuli or painful touch. Labs show sodium of 135, potassium 4.7, BUN 101, serum creatinine 6.6. ASSESSMENT: 1. End-stage renal disease, on hemodialysis on a Saturday, Saturday, Saturday schedule, status post kidney biopsy which showed severe advanced diabetic kidney disease and severe nephrosclerosis and arteriosclerosis. 2. Volume overload, currently improved. We can change the IV Lasix to p.o. 3. Hypertension, initially uncontrolled, currently much better controlled. 4. Vent-dependent respiratory failure, status post extubation, currently with a trach collar. 5. History of Staph coagulans bacteremia. Repeat blood cultures have been negative. Patient has a low-grade temperature currently. PLAN: Hemodialysis on a Saturday, Saturday, Saturday schedule. Change Lasix to p.o. MMODL / IJN: [id number] /
[2018-03-17 20:06] LABS: Glucose,Whole Blood 194 mg/dL (75-99)
--- NOTE | 2018-03-17 22:15 | PN ---
PROGRESS NOTE DATE OF SERVICE: 03/17/2018 REASON FOR FOLLOWUP: Gram-positive bacteremia. INTERVAL HISTORY: The patient is currently afebrile. He has been breathing comfortably. He is hemodynamically stable, not requiring any pressor support. Mentation remains currently waiting for placement. PHYSICAL EXAMINATION: Blood pressure is 131/68 with a pulse of 76. He is 97% on trach collar. General description is an elderly male lying in bed in no distress. RESPIRATORY SYSTEM: Unlabored breathing with decreased breath sounds at the bases. No wheeze. HEART: S1, S2. Regular rate and rhythm. ABDOMEN: Soft. No tenderness. LABS: Hemoglobin 7, white count 6.3, BUN of 101, creatinine 6.60. Blood culture repeat has been negative. DIAGNOSTIC IMPRESSION AND PLAN: Patient with coagulase-negative staphylococcus positive blood culture in a patient who did have PermCath for dialysis and has been maintained on IV vancomycin. Patient did have a new fever today of 100.9. Blood culture will be repeated. We will keep the patient on vancomycin at this point, adjusting it further based on his clinical response. Continue with supportive care. MMODL / IJN: [id number] /
[2018-03-17] MEDS: ATORVASTATIN 10 MG TAB PO SCH (22:44)
[2018-03-17 23:29] LABS: Glucose,Whole Blood 218 mg/dL (75-99)
[2018-03-18 04:07] LABS: Glucose,Whole Blood 247 mg/dL (75-99)
[2018-03-18] MEDS: INSULIN ASPART 100 UNIT/ML 1 ML 10 ML VIAL SQ SCH ×5 (04:16→20:34)
[2018-03-18] MEDS: IPRATROPIUM-ALBUTEROL 3 ML NEB INHALATION SCH ×4 (07:50→20:02)
[2018-03-18 08:01] LABS: Glucose,Whole Blood 238 mg/dL (75-99)
[2018-03-18] MEDS: CHLORHEXIDINE GLUCONATE 15 ML CUP MUCOUS MEM SCH ×2 (08:58→21:57)
[2018-03-18] MEDS: HEPARIN SODIUM,PORCINE 5,000 UNIT/ML 1 ML VIAL SQ SCH ×2 (08:58→15:40)
[2018-03-18] MEDS: amLODIPine 10 MG TAB PO SCH (08:58)
[2018-03-18] MEDS: DOCUSATE ORAL SOLN 100 MG/10 ML CUP PO SCH ×2 (08:59→21:58)
[2018-03-18] MEDS: cloNIDine HCL 0.1 MG TAB PO SCH ×3 (08:59→21:58)
[2018-03-18] MEDS: LABETALOL 200 MG TAB PO SCH ×3 (09:00→21:58)
[2018-03-18] MEDS: LOSARTAN 50 MG TAB PO SCH (09:00)
[2018-03-18] MEDS: hydrALAZINE HCL 50 MG TAB PO SCH ×3 (09:00→21:58)
[2018-03-18] MEDS: THIAMINE 100 MG/ML 2 ML VIAL IVP SCH (09:00)
[2018-03-18] MEDS: GABAPENTIN 100 MG CAP PO SCH ×3 (09:00→21:58)
[2018-03-18] MEDS: TAMSULOSIN 0.4 MG CAP.ER.24H PO SCH (09:00)
[2018-03-18] MEDS: VALPROATE SODIUM 750 MG in SODIUM CHLORIDE 0.9% 50 ML IVPB SCH ×3 (09:03→22:03)
[2018-03-18] MEDS: PANTOPRAZOLE 40 MG/10 ML VIAL IVP SCH (09:24)
[2018-03-18 11:47] LABS: Glucose,Whole Blood 223 mg/dL (75-99)
--- NOTE | 2018-03-18 14:15 | P.PN ---
Subjective Patient is seen in follow-up for end-stage renal disease. He is maintained on hemodialysis on a Saturday schedule. Etiology is biopsy-proven diabetic kidney disease. Dynamically stable. Currently being treated for staph bacteremia. Patient underwent a tracheostomy. He remains unresponsive. Vital signs are stable. General: The patient appeared well nourished and normally developed. HEENT: Head exam is unremarkable. Neck is without jugular venous distension. Tracheostomy noted. LUNGS: Lungs are clear to auscultation and percussion. Breath sounds decreased. HEART: Rate and Rhythm are regular. First and second heart sounds normal. No murmurs, rubs or gallops. ABDOMEN: Abdominal exam reveals normal bowel sounds. Non-tender and non- distended. No evidence of peritonitis. EXTREMITITES: No clubbing, cyanosis, or edema. Objective - Vital Signs Vital signs: Vital Signs Temp 99.9 F H 03/18/18 13:00 Pulse 75 03/18/18 13:00 Resp 17 03/18/18 13:00 BP 123/65 03/18/18 13:00 Pulse Ox 98 03/18/18 13:00 Intake & Output 03/17/18 03/18/18 03/18/18 18:59 06:59 18:59 Intake Total 854 1072 536 Output Total 353 Balance 854 719 536 Weight 75.5 kg 74.5 kg Intake: Intake, IV Titration 50 Amount Valproate Sodium 750 mg 50 In Sodium Chloride 0.9% 50 ml @ 50 mls/hr IVPB TID [facility] Rx#:[id number] Oral 0 Tube Feeding 804 1072 536 Output: Urine 350 Uretheral (Delcid) 150 Stool 3 Other: Voiding Method Indwelling Catheter Indwelling Catheter Indwelling Catheter # Voids 0 ABP, PAP, CO, CI - Last Documented Arterial Blood Pressure 135/56 - Labs CBC & Chem 7: 03/17/18 06:38 03/17/18 06:38 Labs: Abnormal Lab Results - Last 24 Hours (Table) 03/17/18 03/17/18 03/17/18 Range/Units 16:47 20:04 23:27 POC Glucose (mg/dL) 246 H 194 H 218 H (75-99) mg/dL 03/18/18 03/18/18 03/18/18 Range/Units 04:04 08:01 11:45 POC Glucose (mg/dL) 247 H 238 H 223 H (75-99) mg/dL Microbiology - Last 24 Hours (Table) 03/11/18 11:43 Blood Culture - Final Blood No Growth after 144 hours Assessment and Plan Plan: Assessment: 1. End-stage renal disease maintained on hemodialysis on a Saturday schedule via permacath. Etiology was biopsy proven diabetic kidney disease. 2. Volume overload. Improved with ultrafiltration. 3. Hypertension with chronic kidney disease. Controlled. 4. Staph coagulations bacteremia maintained on IV vancomycin. Vancomycin level XXI.5 today. 5. Diabetes mellitus. 6. History of hepatitis C. 7. Anemia of chronic kidney disease maintained on Aranesp. Plan: Hemodialysis tomorrow. Maintain current antihypertensives. Monitor vancomycin levels. Dose to be adjusted for renal function. Check phosphorus level. Check iron studies.
[2018-03-18] MEDS: FUROSEMIDE 80 MG TAB PO SCH (15:39)
[2018-03-18 17:01] LABS: Glucose,Whole Blood 238 mg/dL (75-99)
[2018-03-18 20:16] LABS: Glucose,Whole Blood 244 mg/dL (75-99)
--- NOTE | 2018-03-18 20:21 | P.PN ---
Subjective Patient is a 67-year-old -[place] male who is being followed by the neurology service for possible seizure. Patient was brought to [facility] emergency room with shortness of breath. He was found to have significant pulmonary edema. Patient does have stage IV chronic kidney disease. Patient was being treated in the emergency room when one of the nurses noted patient to be unresponsive. Patient had questionable jerking activity. Patient had significant hypoglycemia in the 20s. He was given D50, intubated and sedated. Patient is currently in the ICU. Computed tomography scan of the brain was done which showed no acute abnormality. Computed tomography scan did show evidence of mild generalized atrophy. Patient was noted to have some rhythmic jerking. Patient was taken off propofol and had an EEG done. EEG showed generalized slowing of the background rhythm. EEG also showed significant triphasic waves which is commonly seen in hepatic pathology. Myoclonic activity was described. Patient was started on Depakote 500 mg every 12 hours IV. Staff reports no further jerking movements since starting Depakote. Patient remains sedated with propofol and on mechanical ventilation. acute kidney injury on chronic kidney disease. Patient has chronic kidney disease stage IV secondary to biopsy-proven diabetic kidney disease with severe chronicity. His baseline creatinine has been in the range of 4-5. Creatinine was 7.65 on admission 02/23/2018 this is my first day taking care of the pt , pt is still on vent , he has been off sedation , however he is still not waking up as expected . pt could have metabolic encephalopathy , vs other . pt with acute on chronic Kidney disease stage IV. nephrology are following the case .Creatinine was 7.65 on admission and is 5.99 today. pt is been seen by neurology who recommended to repeat the EEG and result is pending.pt had subtherapeutic level and extra doses were provided for him yesterday EEG from 02/21: abnormal with significant triphasic waves which is commonly seen in hepatic encephalopahty pt still does not respond to pain stimuli. despite been off sedation since this morning. pupils are equal and reactive to light, meningeal signs were absent when i examined the pt this morning pt has h/o Hep C and B , we will check ammonia level and other work up like B12 ,thyroid function test, syphlis screen ,repeat CT of the head ,with neurology follow up. no fever , no leukocytosis 02/24/2018 no change from yesterday in his mental status from the first time a saw her , still unresponsive , neurologist team is following the pt and recommended repeat EEG. critical care input is appreciated . ammonia level and TSH were negative , repeat CT head is negative for acute process as well 02/25/2018 Patient remains unresponsive as before. Repeat EEG showing moderate encephalopathy, significant triphasic waves consistent with hepatic disease. Occasional sharp wave consistent with due to seizure threshold. But no generalized epileptiform discharge. Patient is a plan to have trach placed on the surgical site. As well as dialysis catheter for dialysis. Patient has Delcid catheter with 40 mL in the bag. There is purulent discharge from the penis. Discussed with staff. Check culture for the discharge, change. AND CHECK BLADDER SCAN 02/26/2018 Patient remains unresponsive, the same. Patient had a dialysis catheter placed. Than his going for hemodialysis currently. Patient has been evaluated by nursing specialist on their input is appreciated. Patient is planned for going for PEG and tracheostomy possibly tomorrow, as per family wishes. To call care consult is appreciated. He has positive sputum culture was fracture and staphylococcus. urine discharge so there was has been changed. Urine culture is pending. We'll consult infectious diseases specialist. Patient with mild leukocytosis 02/27/2018 No improvement in the patient mental status, he remains unresponsive and intubated. Went for dialysis yesterday and today. And PEG tube with check estimated are planned for the patient's in 1 or 2 days. Prognosis remains very poor. The sputum culture is growing Serratia and staph aureus. ID consult is appreciated and patient was started on cefepime. Also patient got IV vancomycin doses . Pulmonary/critical care input is appreciated. Hemoglobin at 7.1. No leukocytosis. He had fever yesterday at 100.2 02/28/2018 pt is unresponsive, intubated , he is undergoing hemodialysis , and he is on antibiotic , he is responding a little bit to suctioning his mouth but only minimally , prognosis remains poor and guarded. pt had PEG and treacheostomy, he remains on cefepime per ID recommendation . pt has Serratia marcescens and staph aureus. while his penile c/s showing many gr-ve bacilli (areobic and unaerobic) and gram positive cocci (unaerobic) 03/03/2018 Patient is unresponsive, has tracheostomy and PEG tube. His undergoing hemodialysis. He is on antibiotics for infection his respiratory and urinary systems. Patient is smoking a grimace to painful stimuli but no more more than that. Continue with supportive care. Prognosis remains very poor 03/04/2018 No change in mental status of the patient, he remains unresponsive. Status post tracheostomy and PEG tube insertion. Continue with hemo-dialysis. And nephrology team are following the patient Continue with antibiotic. Continue with valproate. Critical care/pulmonary team evaluation and follow-up is appreciated. He is off mechanical ventilation currently and continue with trach collar. Continue with Protonix for GI prophylaxis. Patient has some grimace to painful stimuli, however unresponsive to verbal or tactile stimuli. Neurological evaluation is recommended with some workup like EKG and CAT scan of the brain 03/15/2018 Patient remains unresponsive, and change from last time I saw the patient. Patient remains on antibiotic as per ID recommendation. Blood pressure medication and his blood pressure is now is currently better controlled .patient is currently on hemodialysis on Saturday, Saturday and Saturday schedule. Nephrology team are following the patient Prognosis remains poor 03-16-18 Patient remains unresponsive, nephrology follow us is appreciated, pt was started on Drabepoetin oral by nephrology team.patient remains on hemodialysis as scheduled. He has a tracheostomy on the oxygen and being fed via PEG tube. CBC and BMP looks stable compared to previous results Prognosis remains poor 03/17/2018 Patient remains unresponsive, nephrology follow us is appreciated, pt was started on Drabepoetin oral by nephrology team.patient remains on hemodialysis as scheduled. He has a tracheostomy on the oxygen and being fed via PEG tube. CBC and BMP looks stable compared to previous results Prognosis remains poor 03/18/2018 Patient remains unresponsive, nephrology follow us is appreciated, pt was started on Drabepoetin oral by nephrology team.patient remains on hemodialysis as scheduled. He has a tracheostomy on the oxygen and being fed via PEG tube. CBC and BMP looks stable compared to previous results. nephrology follow is appreciated ,pt is on lasix for fluid overload, check vancomycin level. Prognosis remains poor Objective - Vital Signs Vital signs: Vital Signs Temp 99.9 F H 03/18/18 13:00 Pulse 75 03/18/18 13:00 Resp 17 03/18/18 13:00 BP 123/65 03/18/18 13:00 Pulse Ox 98 03/18/18 13:00 Intake & Output 03/18/18 03/18/18 03/19/18 06:59 18:59 06:59 Intake Total 1072 804 Output Total 353 Balance 719 804 Weight 74.5 kg Intake: Oral 0 Tube Feeding 1072 804 Output: Urine 350 Uretheral (Delcid) 150 Stool 3 Other: Voiding Method Indwelling Catheter Indwelling Catheter # Voids 0 # Bowel Movements 2 ABP, PAP, CO, CI - Last Documented Arterial Blood Pressure 135/56 - Exam -GENERAL: The patient is unresponsive , does not open eyes,intubated. not in any acute distress. Well developed, HEENT: Pupils are round and equally reacting to light. EOMI. No scleral icterus. No conjunctival pallor. Normocephalic, atraumatic. No pharyngeal erythema. No thyromegaly. CARDIOVASCULAR: S1 and S2 present. No murmurs, rubs, or gallops. -PULMONARY: Chest is clear to auscultation, no wheezing. Bilateral scattered crackles. ABDOMEN: Soft, nontender, nondistended, normoactive bowel sounds. No palpable organomegaly. MUSCULOSKELETAL: No joint swelling or deformity. EXTREMITIES: No cyanosis, clubbing, or pedal edema. -s/p right BKA -NEUROLOGICAL: unresponsive to verbal or painful stinuli, does not open eyes. SKIN: No rashes. - Labs CBC & Chem 7: 03/17/18 06:38 03/17/18 06:38 Labs: Abnormal Lab Results - Last 24 Hours (Table) 03/17/18 03/18/18 03/18/18 Range/Units 23:27 04:04 08:01 POC Glucose (mg/dL) 218 H 247 H 238 H (75-99) mg/dL 03/18/18 03/18/18 03/18/18 Range/Units 11:45 16:58 20:08 POC Glucose (mg/dL) 223 H 238 H 244 H (75-99) mg/dL Microbiology - Last 24 Hours (Table) 03/17/18 23:00 Blood Culture Gram Stain - Preliminary Blood 03/17/18 23:00 Blood Culture - Final Blood Assessment and Plan Plan: Assessment and Plan -Acute hypoxic respiratory failure: Secondary to congestive heart failure chronic diastolic dysfunction with acute exacerbation patient , with other causes occluded. He was started on high-dose of Lasix. Continuing with the ventilatory support, diurese well improved creatinine with Lasix. Improving -possible seizure versus metabolic encephalopathy related to low glu , neurology team is following the pt , on depakote and level checked as per neuro team recommendation -acute on chronic renal failure , f/u with nephrology. Patient is getting hemodialysis -metabolic encephalopathy , possibly secondary to all above -Sepsis with possible tracheobronchitis, positive sputum culture. Patient on antibiotic. 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 -Hypotension is possibly secondary to sedation antidepressive medications will be held and restarted as needed. Hyperlipidemia -Episode of seizure believed to be secondary to hypoglycemia and encephalopathy EEG showed diffuse slowing. patient has metabolic and toxic encephalopathy -Possible Purulent discharge from the penile orifice. Culture: Many gram- negative and positive bacteria, see report DVT and GI px. pt is on heparin and protonix prognosis is very poor
[2018-03-18 20:43] LABS: Iron Saturation 10.44 (15.00-50.00)
[2018-03-18] MEDS: ATORVASTATIN 10 MG TAB PO SCH (21:58)
--- NOTE | 2018-03-18 23:49 | PN ---
PROGRESS NOTE DATE OF SERVICE: 03/18/2018 REASON FOR FOLLOWUP: Staph epi bacteremia. INTERVAL HISTORY: The patient currently has been afebrile. He did have a low-grade fever yesterday, for which blood culture was repeated. The patient has been tolerating his tube feeds. No diarrhea. He is unable to provide any history. PHYSICAL EXAMINATION: Blood pressure 134/70 with a pulse of 73, temperature of 98.6. He is 100% on trach collar. General description is an elderly male lying in bed in no distress. RESPIRATORY SYSTEM: Unlabored breathing with decreased breath sounds in the bases. No wheeze. HEART: S1, S2. Regular rate and rhythm. ABDOMEN: Soft. No tenderness. LABS: No new labs have been obtained today. Blood cultures from 03/17 preliminary with gram- positive cocci in groups. DIAGNOSTIC IMPRESSION AND PLAN: Patient with gram-positive bacteremia in a patient who does have a subclavian catheter and has been treated with IV vancomycin. Now he did have a fever yesterday and blood cultures were repeated, now showing gram-positive cocci in groups. Will keep the patient on vancomycin at this point while waiting for the final ID of this pathogen. Vancomycin random has been therapeutic throughout his hospital stay. Continue with supportive care. MMODL / IJN: [id number] /
[2018-03-19 00:01] LABS: Glucose,Whole Blood 221 mg/dL (75-99)
[2018-03-19] MEDS: INSULIN ASPART 100 UNIT/ML 1 ML 10 ML VIAL SQ SCH ×6 (00:25→21:14)
[2018-03-19] MEDS: HEPARIN SODIUM,PORCINE 5,000 UNIT/ML 1 ML VIAL SQ SCH ×3 (00:25→15:23)
[2018-03-19 04:26] LABS: Glucose,Whole Blood 226 mg/dL (75-99)
[2018-03-19 08:04] LABS: Glucose,Whole Blood 250 mg/dL (75-99)
[2018-03-19] MEDS: IPRATROPIUM-ALBUTEROL 3 ML NEB INHALATION SCH ×4 (08:37→21:11)
[2018-03-19 09:30] LABS: Phosphorus 6.2 mg/dL (2.5-4.5)
[2018-03-19] MEDS: amLODIPine 10 MG TAB PO SCH (09:32)
[2018-03-19] MEDS: CHLORHEXIDINE GLUCONATE 15 ML CUP MUCOUS MEM SCH ×2 (09:32→22:04)
[2018-03-19] MEDS: DOCUSATE ORAL SOLN 100 MG/10 ML CUP PO SCH ×2 (09:33→22:04)
[2018-03-19] MEDS: cloNIDine HCL 0.1 MG TAB PO SCH ×3 (09:33→22:03)
[2018-03-19] MEDS: FUROSEMIDE 80 MG TAB PO SCH ×2 (09:33→15:24)
[2018-03-19] MEDS: hydrALAZINE HCL 50 MG TAB PO SCH ×3 (09:33→22:04)
[2018-03-19] MEDS: LABETALOL 200 MG TAB PO SCH ×3 (09:33→22:04)
[2018-03-19] MEDS: GABAPENTIN 100 MG CAP PO SCH ×3 (09:33→22:04)
[2018-03-19] MEDS: LOSARTAN 50 MG TAB PO SCH (09:34)
[2018-03-19] MEDS: TAMSULOSIN 0.4 MG CAP.ER.24H PO SCH (09:35)
[2018-03-19] MEDS: PANTOPRAZOLE 40 MG TABLET PO SCH (09:35)
[2018-03-19] MEDS: THIAMINE 100 MG/ML 2 ML VIAL IVP SCH (09:36)
[2018-03-19] MEDS: VALPROATE SODIUM 750 MG in SODIUM CHLORIDE 0.9% 50 ML IVPB SCH ×3 (09:37→21:34)
--- NOTE | 2018-03-19 09:55 | P.PN ---
Subjective Patient is seen in follow-up for end-stage renal disease. He is maintained on hemodialysis on a Saturday schedule. Etiology is biopsy-proven diabetic kidney disease. Hemodynamically stable. Currently being treated for staph bacteremia. Patient underwent a tracheostomy. He remains unresponsive. Vital signs are stable. General: The patient appeared well nourished and normally developed. HEENT: Head exam is unremarkable. Neck is without jugular venous distension. Tracheostomy noted. LUNGS: Lungs are clear to auscultation and percussion. Breath sounds decreased. HEART: Rate and Rhythm are regular. First and second heart sounds normal. No murmurs, rubs or gallops. ABDOMEN: Abdominal exam reveals normal bowel sounds. Non-tender and non- distended. No evidence of peritonitis. EXTREMITITES: No clubbing, cyanosis, or edema. Objective - Vital Signs Vital signs: Vital Signs Temp 100 F H 03/19/18 04:57 Pulse 80 03/19/18 08:51 Resp 18 03/19/18 04:57 BP 124/62 03/19/18 04:57 Pulse Ox 100 03/19/18 04:57 Intake & Output 03/18/18 03/19/18 03/19/18 18:59 06:59 18:59 Intake Total 804 659 Output Total 200 Balance 804 459 Weight 65.5 kg Intake: IV 105 NS 105 Intake, IV Titration 50 Amount Valproate Sodium 750 mg 50 In Sodium Chloride 0.9% 50 ml @ 50 mls/hr IVPB TID [facility] Rx#:[id number] Tube Feeding 804 504 Output: Urine 200 Uretheral (Delcid) 200 Other: Voiding Method Indwelling Catheter Indwelling Catheter Indwelling Catheter # Bowel Movements 2 ABP, PAP, CO, CI - Last Documented Arterial Blood Pressure 135/56 - Labs CBC & Chem 7: 03/17/18 06:38 03/17/18 06:38 Labs: Abnormal Lab Results - Last 24 Hours (Table) 03/18/18 03/18/18 03/18/18 Range/Units 08:02 11:45 16:58 POC Glucose (mg/dL) 223 H 238 H (75-99) mg/dL Phosphorus (2.5-4.5) mg/dL Iron 26 L (65-175) ug/dL Iron Saturation 10.44 L (15.00-50.00) Ferritin 657.2 H (22.0-322.0) ng/mL 03/18/18 03/18/18 03/19/18 Range/Units 20:08 23:59 04:06 POC Glucose (mg/dL) 244 H 221 H 226 H (75-99) mg/dL Phosphorus (2.5-4.5) mg/dL Iron (65-175) ug/dL Iron Saturation (15.00-50.00) Ferritin (22.0-322.0) ng/mL 03/19/18 03/19/18 Range/Units 07:27 08:01 POC Glucose (mg/dL) 250 H (75-99) mg/dL Phosphorus 6.2 H (2.5-4.5) mg/dL Iron (65-175) ug/dL Iron Saturation (15.00-50.00) Ferritin (22.0-322.0) ng/mL Microbiology - Last 24 Hours (Table) 03/17/18 23:00 Blood Culture Gram Stain - Preliminary Blood 03/17/18 23:00 Blood Culture - Final Blood Assessment and Plan Plan: Assessment: 1. End-stage renal disease maintained on hemodialysis on a Saturday schedule via permacath. Etiology is biopsy proven diabetic kidney disease. 2. Volume overload. Improved with ultrafiltration. 3. Hypertension with chronic kidney disease. Controlled. 4. Staph coagulations bacteremia maintained on IV vancomycin. Vancomycin level XXI.5 today. 5. Diabetes mellitus. 6. History of hepatitis C. 7. Anemia of chronic kidney disease maintained on Aranesp. Iron deficiency noted. 8. Chronic kidney disease mineral bone disease. Phosphorus level 6.1 March 19 - above goal. Plan: Hemodialysis today. Maintain current antihypertensives. Monitor vancomycin levels. Dose to be adjusted for renal function. I will hold off on IV iron due to bacteremia. Add Renvela. Case management working on discharge planning.
[2018-03-19 10:57] LABS: Vancomycin,Random 21.6 ug/mL
[2018-03-19 12:27] LABS: Glucose,Whole Blood 209 mg/dL (75-99)
[2018-03-19] MEDS: SEVELAMER 800 MG TAB PO SCH ×2 (12:50→13:09)
[2018-03-19 16:38] LABS: Glucose,Whole Blood 182 mg/dL (75-99)
--- NOTE | 2018-03-19 17:06 | P.PN ---
Subjective Patient is a 67-year-old -[place] male who is being followed by the neurology service for possible seizure. Patient was brought to [facility] emergency room with shortness of breath. He was found to have significant pulmonary edema. Patient does have stage IV chronic kidney disease. Patient was being treated in the emergency room when one of the nurses noted patient to be unresponsive. Patient had questionable jerking activity. Patient had significant hypoglycemia in the 20s. He was given D50, intubated and sedated. Patient is currently in the ICU. Computed tomography scan of the brain was done which showed no acute abnormality. Computed tomography scan did show evidence of mild generalized atrophy. Patient was noted to have some rhythmic jerking. Patient was taken off propofol and had an EEG done. EEG showed generalized slowing of the background rhythm. EEG also showed significant triphasic waves which is commonly seen in hepatic pathology. Myoclonic activity was described. Patient was started on Depakote 500 mg every 12 hours IV. Staff reports no further jerking movements since starting Depakote. Patient remains sedated with propofol and on mechanical ventilation. acute kidney injury on chronic kidney disease. Patient has chronic kidney disease stage IV secondary to biopsy-proven diabetic kidney disease with severe chronicity. His baseline creatinine has been in the range of 4-5. Creatinine was 7.65 on admission 02/23/2018 this is my first day taking care of the pt , pt is still on vent , he has been off sedation , however he is still not waking up as expected . pt could have metabolic encephalopathy , vs other . pt with acute on chronic Kidney disease stage IV. nephrology are following the case .Creatinine was 7.65 on admission and is 5.99 today. pt is been seen by neurology who recommended to repeat the EEG and result is pending.pt had subtherapeutic level and extra doses were provided for him yesterday EEG from 02/21: abnormal with significant triphasic waves which is commonly seen in hepatic encephalopahty pt still does not respond to pain stimuli. despite been off sedation since this morning. pupils are equal and reactive to light, meningeal signs were absent when i examined the pt this morning pt has h/o Hep C and B , we will check ammonia level and other work up like B12 ,thyroid function test, syphlis screen ,repeat CT of the head ,with neurology follow up. no fever , no leukocytosis 02/24/2018 no change from yesterday in his mental status from the first time a saw her , still unresponsive , neurologist team is following the pt and recommended repeat EEG. critical care input is appreciated . ammonia level and TSH were negative , repeat CT head is negative for acute process as well 02/25/2018 Patient remains unresponsive as before. Repeat EEG showing moderate encephalopathy, significant triphasic waves consistent with hepatic disease. Occasional sharp wave consistent with due to seizure threshold. But no generalized epileptiform discharge. Patient is a plan to have trach placed on the surgical site. As well as dialysis catheter for dialysis. Patient has Delcid catheter with 40 mL in the bag. There is purulent discharge from the penis. Discussed with staff. Check culture for the discharge, change. AND CHECK BLADDER SCAN 02/26/2018 Patient remains unresponsive, the same. Patient had a dialysis catheter placed. Than his going for hemodialysis currently. Patient has been evaluated by publications sales representative on their input is appreciated. Patient is planned for going for PEG and tracheostomy possibly tomorrow, as per family wishes. To call care consult is appreciated. He has positive sputum culture was fracture and staphylococcus. urine discharge so there was has been changed. Urine culture is pending. We'll consult infectious diseases specialist. Patient with mild leukocytosis 02/27/2018 No improvement in the patient mental status, he remains unresponsive and intubated. Went for dialysis yesterday and today. And PEG tube with check estimated are planned for the patient's in 1 or 2 days. Prognosis remains very poor. The sputum culture is growing Serratia and staph aureus. ID consult is appreciated and patient was started on cefepime. Also patient got IV vancomycin doses . Pulmonary/critical care input is appreciated. Hemoglobin at 7.1. No leukocytosis. He had fever yesterday at 100.2 02/28/2018 pt is unresponsive, intubated , he is undergoing hemodialysis , and he is on antibiotic , he is responding a little bit to suctioning his mouth but only minimally , prognosis remains poor and guarded. pt had PEG and treacheostomy, he remains on cefepime per ID recommendation . pt has Serratia marcescens and staph aureus. while his penile c/s showing many gr-ve bacilli (areobic and unaerobic) and gram positive cocci (unaerobic) 03/03/2018 Patient is unresponsive, has tracheostomy and PEG tube. His undergoing hemodialysis. He is on antibiotics for infection his respiratory and urinary systems. Patient is smoking a grimace to painful stimuli but no more more than that. Continue with supportive care. Prognosis remains very poor 03/04/2018 No change in mental status of the patient, he remains unresponsive. Status post tracheostomy and PEG tube insertion. Continue with hemo-dialysis. And nephrology team are following the patient Continue with antibiotic. Continue with valproate. Critical care/pulmonary team evaluation and follow-up is appreciated. He is off mechanical ventilation currently and continue with trach collar. Continue with Protonix for GI prophylaxis. Patient has some grimace to painful stimuli, however unresponsive to verbal or tactile stimuli. Neurological evaluation is recommended with some workup like EKG and CAT scan of the brain 03/15/2018 Patient remains unresponsive, and change from last time I saw the patient. Patient remains on antibiotic as per ID recommendation. Blood pressure medication and his blood pressure is now is currently better controlled .patient is currently on hemodialysis on Saturday, Saturday and Saturday schedule. Nephrology team are following the patient Prognosis remains poor 03-16-18 Patient remains unresponsive, nephrology follow us is appreciated, pt was started on Drabepoetin oral by nephrology team.patient remains on hemodialysis as scheduled. He has a tracheostomy on the oxygen and being fed via PEG tube. CBC and BMP looks stable compared to previous results Prognosis remains poor 03/17/2018 Patient remains unresponsive, nephrology follow us is appreciated, pt was started on Drabepoetin oral by nephrology team.patient remains on hemodialysis as scheduled. He has a tracheostomy on the oxygen and being fed via PEG tube. CBC and BMP looks stable compared to previous results Prognosis remains poor 03/18/2018 Patient remains unresponsive, nephrology follow us is appreciated, pt was started on Drabepoetin oral by nephrology team.patient remains on hemodialysis as scheduled. He has a tracheostomy on the oxygen and being fed via PEG tube. CBC and BMP looks stable compared to previous results. nephrology follow is appreciated ,pt is on lasix for fluid overload, check vancomycin level. Prognosis remains poor 03/19/2018 Patient remains unresponsive, nephrology follow us is appreciated, pt was started on Drabepoetin oral by nephrology team.patient remains on hemodialysis as scheduled. He has a tracheostomy on the oxygen and being fed via PEG tube. CBC and BMP looks stable compared to previous results. nephrology follow is appreciated ,pt is on lasix for fluid overload, Prognosis remains poor Objective - Vital Signs Vital signs: Vital Signs Temp 98.6 F 03/19/18 12:00 Pulse 72 03/19/18 12:52 Resp 14 03/19/18 12:00 BP 131/69 03/19/18 12:00 Pulse Ox 97 03/19/18 12:00 Intake & Output 03/18/18 03/19/18 03/19/18 18:59 06:59 18:59 Intake Total 804 659 504 Output Total 200 150 Balance 804 459 354 Weight 65.5 kg Intake: IV 105 NS 105 Intake, IV Titration 50 Amount Valproate Sodium 750 mg 50 In Sodium Chloride 0.9% 50 ml @ 50 mls/hr IVPB TID [facility] Rx#:[id number] Tube Feeding 804 504 504 Output: Urine 200 150 Uretheral (Delcid) 200 150 Other: Voiding Method Indwelling Catheter Indwelling Catheter Indwelling Catheter # Bowel Movements 2 1 ABP, PAP, CO, CI - Last Documented Arterial Blood Pressure 135/56 - Exam -GENERAL: The patient is unresponsive , does not open eyes,intubated. not in any acute distress. Well developed, HEENT: Pupils are round and equally reacting to light. EOMI. No scleral icterus. No conjunctival pallor. Normocephalic, atraumatic. No pharyngeal erythema. No thyromegaly. CARDIOVASCULAR: S1 and S2 present. No murmurs, rubs, or gallops. -PULMONARY: Chest is clear to auscultation, no wheezing. Bilateral scattered crackles. ABDOMEN: Soft, nontender, nondistended, normoactive bowel sounds. No palpable organomegaly. MUSCULOSKELETAL: No joint swelling or deformity. EXTREMITIES: No cyanosis, clubbing, or pedal edema. -s/p right BKA -NEUROLOGICAL: unresponsive to verbal or painful stinuli, does not open eyes. SKIN: No rashes. - Labs CBC & Chem 7: 03/17/18 06:38 03/17/18 06:38 Labs: Abnormal Lab Results - Last 24 Hours (Table) 03/18/18 03/18/18 03/18/18 Range/Units 08:02 20:08 23:59 POC Glucose (mg/dL) 244 H 221 H (75-99) mg/dL Phosphorus (2.5-4.5) mg/dL Iron 26 L (65-175) ug/dL Iron Saturation 10.44 L (15.00-50.00) Ferritin 657.2 H (22.0-322.0) ng/mL 03/19/18 03/19/18 03/19/18 Range/Units 04:06 07:27 08:01 POC Glucose (mg/dL) 226 H 250 H (75-99) mg/dL Phosphorus 6.2 H (2.5-4.5) mg/dL Iron (65-175) ug/dL Iron Saturation (15.00-50.00) Ferritin (22.0-322.0) ng/mL 03/19/18 03/19/18 Range/Units 12:25 16:35 POC Glucose (mg/dL) 209 H 182 H (75-99) mg/dL Phosphorus (2.5-4.5) mg/dL Iron (65-175) ug/dL Iron Saturation (15.00-50.00) Ferritin (22.0-322.0) ng/mL Microbiology - Last 24 Hours (Table) 03/17/18 23:00 Blood Culture Gram Stain - Preliminary Blood Blood Culture - Preliminary Coagulase Negative Staph 03/17/18 23:00 Blood Culture - Final Blood Assessment and Plan Plan: Assessment and Plan -Acute hypoxic respiratory failure: Secondary to congestive heart failure chronic diastolic dysfunction with acute exacerbation patient , with other causes occluded. He was started on high-dose of Lasix. Continuing with the ventilatory support, diurese well improved creatinine with Lasix. Improving -possible seizure versus metabolic encephalopathy related to low glu , neurology team is following the pt , on depakote and level checked as per neuro team recommendation -acute on chronic renal failure , f/u with nephrology. Patient is getting hemodialysis -metabolic encephalopathy , possibly secondary to all above -Sepsis with possible tracheobronchitis, positive sputum culture. Patient on antibiotic. 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 -Hypotension is possibly secondary to sedation antidepressive medications will be held and restarted as needed. Hyperlipidemia -Episode of seizure believed to be secondary to hypoglycemia and encephalopathy EEG showed diffuse slowing. patient has metabolic and toxic encephalopathy -Possible Purulent discharge from the penile orifice. Culture: Many gram- negative and positive bacteria, see report DVT and GI px. pt is on heparin and protonix prognosis is very poor
[2018-03-19 20:48] LABS: Glucose,Whole Blood 194 mg/dL (75-99)
[2018-03-19] MEDS ORDERED: VANCOMYCIN 1,250 MG in SODIUM CHLORIDE 0.9% 250 ML IVPB ONE (22:00)
[2018-03-19] MEDS: ATORVASTATIN 10 MG TAB PO SCH (22:04)
--- NOTE | 2018-03-19 23:17 | PN ---
PROGRESS NOTE DATE OF SERVICE: 03/19/2018 REASON FOR FOLLOWUP: Fever and bacteremia. INTERVAL HISTORY: The patient did have a low-grade fever of 100 this morning, afebrile since then. The patient remains to be unresponsive with activity. He has been breathing comfortably on trach collar, although he has been tolerating his tube feeds. No significant diarrhea reported per nurse. He is unable to report any history. EXAMINATION: Blood pressure 140/75 with a pulse of 74, temperature 98.8. He is 99% on trach collar. General description is an elderly male lying in bed in no distress. RESPIRATORY SYSTEM: Unlabored breathing, some coarse breath at the bases. No wheeze. HEART: S1, S2. Regular rate and rhythm. ABDOMEN: Soft, no tenderness. LABS: Blood culture from 03/17/2018 coming positive . DIAGNOSTIC IMPRESSION AND PLAN: Patient with low-grade fever with positive blood pressure and coagulase negative Staph. The patient does have underlying right subclavian catheter for dialysis. We will keep the patient on vancomycin at this point. However in view of overall poor prognosis, the patient may benefit from hospice oriented care. Continue supportive care. MMODL / IJN: [id number] /
[2018-03-20] MEDS: HEPARIN SODIUM,PORCINE 5,000 UNIT/ML 1 ML VIAL SQ SCH ×3 (00:06→15:13)
[2018-03-20] MEDS: INSULIN ASPART 100 UNIT/ML 1 ML 10 ML VIAL SQ SCH ×6 (00:09→21:24)
[2018-03-20 00:20] LABS: Glucose,Whole Blood 235 mg/dL (75-99)
[2018-03-20 04:20] LABS: Glucose,Whole Blood 242 mg/dL (75-99)
[2018-03-20] MEDS: GABAPENTIN 100 MG CAP PO SCH ×3 (07:46→21:41)
[2018-03-20] MEDS: LOSARTAN 50 MG TAB PO SCH (07:46)
[2018-03-20] MEDS: amLODIPine 10 MG TAB PO SCH (07:46)
[2018-03-20] MEDS: PANTOPRAZOLE 40 MG TABLET PO SCH (07:46)
[2018-03-20] MEDS: cloNIDine HCL 0.1 MG TAB PO SCH ×3 (07:46→21:40)
[2018-03-20] MEDS: TAMSULOSIN 0.4 MG CAP.ER.24H PO SCH (07:46)
[2018-03-20] MEDS: FUROSEMIDE 80 MG TAB PO SCH ×2 (07:47→15:12)
[2018-03-20] MEDS: THIAMINE 100 MG/ML 2 ML VIAL IVP SCH (07:47)
[2018-03-20] MEDS: LABETALOL 200 MG TAB PO SCH ×3 (07:47→21:41)
[2018-03-20] MEDS: hydrALAZINE HCL 50 MG TAB PO SCH ×3 (07:47→21:41)
[2018-03-20] MEDS: VALPROATE SODIUM 750 MG in SODIUM CHLORIDE 0.9% 50 ML IVPB SCH ×3 (07:48→21:43)
[2018-03-20] MEDS: CHLORHEXIDINE GLUCONATE 15 ML CUP MUCOUS MEM SCH ×2 (07:48→21:40)
[2018-03-20] MEDS: DOCUSATE ORAL SOLN 100 MG/10 ML CUP PO SCH ×2 (07:48→21:37)
[2018-03-20 08:41] LABS: Glucose,Whole Blood 215 mg/dL (75-99)
[2018-03-20] MEDS: IPRATROPIUM-ALBUTEROL 3 ML NEB INHALATION SCH ×4 (08:58→20:59)
--- NOTE | 2018-03-20 09:47 | P.PN ---
Subjective Patient is seen in follow-up for end-stage renal disease. He is maintained on hemodialysis on a Saturday schedule. Etiology is biopsy-proven diabetic kidney disease. Hemodynamically stable. Currently being treated for staph bacteremia. Patient underwent a tracheostomy. He remains unresponsive. Last hemodialysis was yesterday. Vital signs are stable. General: The patient appeared well nourished and normally developed. HEENT: Head exam is unremarkable. Neck is without jugular venous distension. Tracheostomy noted. LUNGS: Lungs are clear to auscultation and percussion. Breath sounds decreased. HEART: Rate and Rhythm are regular. First and second heart sounds normal. No murmurs, rubs or gallops. ABDOMEN: Abdominal exam reveals normal bowel sounds. Non-tender and non- distended. No evidence of peritonitis. EXTREMITITES: No clubbing, cyanosis, or edema. Objective - Vital Signs Vital signs: Vital Signs Temp 98 F 03/20/18 05:00 Pulse 84 03/20/18 09:14 Resp 18 03/20/18 05:00 BP 137/71 03/20/18 05:00 Pulse Ox 98 03/20/18 05:00 Intake & Output 03/19/18 03/20/18 03/20/18 18:59 06:59 18:59 Intake Total 504 619 Output Total 150 100 Balance 354 519 Weight 72.5 kg Intake: IV 115 NS 115 Tube Feeding 504 504 Output: Urine 150 100 Uretheral (Delcid) 150 100 Other: Voiding Method Indwelling Catheter Indwelling Catheter # Bowel Movements 1 ABP, PAP, CO, CI - Last Documented Arterial Blood Pressure 135/56 - Labs CBC & Chem 7: 03/17/18 06:38 03/17/18 06:38 Labs: Abnormal Lab Results - Last 24 Hours (Table) 03/19/18 03/19/18 03/19/18 Range/Units 12:25 16:35 20:46 POC Glucose (mg/dL) 209 H 182 H 194 H (75-99) mg/dL 03/20/18 03/20/18 03/20/18 Range/Units 00:01 04:18 08:40 POC Glucose (mg/dL) 235 H 242 H 215 H (75-99) mg/dL Microbiology - Last 24 Hours (Table) 03/17/18 23:00 Blood Culture Gram Stain - Preliminary Blood Blood Culture - Preliminary Coagulase Negative Staph Assessment and Plan Plan: Assessment: 1. End-stage renal disease maintained on hemodialysis on a Saturday schedule via permacath. Etiology is biopsy proven diabetic kidney disease. 2. Volume overload. Improved with ultrafiltration. 3. Hypertension with chronic kidney disease. Controlled. 4. Staph bacteremia maintained on IV vancomycin. Vancomycin level 21.6 as of yesterday. 5. Diabetes mellitus. 6. History of hepatitis C. 7. Anemia of chronic kidney disease maintained on Aranesp. Iron deficiency noted. 8. Chronic kidney disease mineral bone disease. Phosphorus level 6.1 March 19 - above goal. Plan: Hemodialysis tomorrow. Maintain current antihypertensives. Monitor vancomycin levels. Dose to be adjusted for renal function. I will hold off on IV iron due to bacteremia. Monitor phosphorus. Renvela cannot be given with tube feeds. I will hold off on PhosLo as his corrected calcium is near 10. Case management working on discharge planning.
[2018-03-20 10:37] LABS: Potassium 4.9 mmol/L (3.5-5.1)
[2018-03-20 12:14] LABS: Glucose,Whole Blood 245 mg/dL (75-99)
[2018-03-20 16:28] LABS: Glucose,Whole Blood 275 mg/dL (75-99)
[2018-03-20 20:55] LABS: Glucose,Whole Blood 252 mg/dL (75-99)
[2018-03-20] MEDS: ACETAMINOPHEN TAB 325 MG TAB PO PRN (21:42)
--- NOTE | 2018-03-20 22:19 | P.PN ---
Subjective Patient is a 67-year-old -[place]ian male who is being followed by the neurology service for possible seizure. Patient was brought to [facility] emergency room with shortness of breath. He was found to have significant pulmonary edema. Patient does have stage IV chronic kidney disease. Patient was being treated in the emergency room when one of the nurses noted patient to be unresponsive. Patient had questionable jerking activity. Patient had significant hypoglycemia in the 20s. He was given D50, intubated and sedated. Patient is currently in the ICU. Computed tomography scan of the brain was done which showed no acute abnormality. Computed tomography scan did show evidence of mild generalized atrophy. Patient was noted to have some rhythmic jerking. Patient was taken off propofol and had an EEG done. EEG showed generalized slowing of the background rhythm. EEG also showed significant triphasic waves which is commonly seen in hepatic pathology. Myoclonic activity was described. Patient was started on Depakote 500 mg every 12 hours IV. Staff reports no further jerking movements since starting Depakote. Patient remains sedated with propofol and on mechanical ventilation. acute kidney injury on chronic kidney disease. Patient has chronic kidney disease stage IV secondary to biopsy-proven diabetic kidney disease with severe chronicity. His baseline creatinine has been in the range of 4-5. Creatinine was 7.65 on admission 02/23/2018 this is my first day taking care of the pt , pt is still on vent , he has been off sedation , however he is still not waking up as expected . pt could have metabolic encephalopathy , vs other . pt with acute on chronic Kidney disease stage IV. nephrology are following the case .Creatinine was 7.65 on admission and is 5.99 today. pt is been seen by neurology who recommended to repeat the EEG and result is pending.pt had subtherapeutic level and extra doses were provided for him yesterday EEG from 02/21: abnormal with significant triphasic waves which is commonly seen in hepatic encephalopahty pt still does not respond to pain stimuli. despite been off sedation since this morning. pupils are equal and reactive to light, meningeal signs were absent when i examined the pt this morning pt has h/o Hep C and B , we will check ammonia level and other work up like B12 ,thyroid function test, syphlis screen ,repeat CT of the head ,with neurology follow up. no fever , no leukocytosis 02/24/2018 no change from yesterday in his mental status from the first time a saw her , still unresponsive , neurologist team is following the pt and recommended repeat EEG. critical care input is appreciated . ammonia level and TSH were negative , repeat CT head is negative for acute process as well 02/25/2018 Patient remains unresponsive as before. Repeat EEG showing moderate encephalopathy, significant triphasic waves consistent with hepatic disease. Occasional sharp wave consistent with due to seizure threshold. But no generalized epileptiform discharge. Patient is a plan to have trach placed on the surgical site. As well as dialysis catheter for dialysis. Patient has Delcid catheter with 40 mL in the bag. There is purulent discharge from the penis. Discussed with staff. Check culture for the discharge, change. AND CHECK BLADDER SCAN 02/26/2018 Patient remains unresponsive, the same. Patient had a dialysis catheter placed. Than his going for hemodialysis currently. Patient has been evaluated by auto body shop manager on their input is appreciated. Patient is planned for going for PEG and tracheostomy possibly tomorrow, as per family wishes. To call care consult is appreciated. He has positive sputum culture was fracture and staphylococcus. urine discharge so there was has been changed. Urine culture is pending. We'll consult infectious diseases specialist. Patient with mild leukocytosis 02/27/2018 No improvement in the patient mental status, he remains unresponsive and intubated. Went for dialysis yesterday and today. And PEG tube with check estimated are planned for the patient's in 1 or 2 days. Prognosis remains very poor. The sputum culture is growing Serratia and staph aureus. ID consult is appreciated and patient was started on cefepime. Also patient got IV vancomycin doses . Pulmonary/critical care input is appreciated. Hemoglobin at 7.1. No leukocytosis. He had fever yesterday at 100.2 02/28/2018 pt is unresponsive, intubated , he is undergoing hemodialysis , and he is on antibiotic , he is responding a little bit to suctioning his mouth but only minimally , prognosis remains poor and guarded. pt had PEG and treacheostomy, he remains on cefepime per ID recommendation . pt has Serratia marcescens and staph aureus. while his penile c/s showing many gr-ve bacilli (areobic and unaerobic) and gram positive cocci (unaerobic) 03/03/2018 Patient is unresponsive, has tracheostomy and PEG tube. His undergoing hemodialysis. He is on antibiotics for infection his respiratory and urinary systems. Patient is smoking a grimace to painful stimuli but no more more than that. Continue with supportive care. Prognosis remains very poor 03/04/2018 No change in mental status of the patient, he remains unresponsive. Status post tracheostomy and PEG tube insertion. Continue with hemo-dialysis. And nephrology team are following the patient Continue with antibiotic. Continue with valproate. Critical care/pulmonary team evaluation and follow-up is appreciated. He is off mechanical ventilation currently and continue with trach collar. Continue with Protonix for GI prophylaxis. Patient has some grimace to painful stimuli, however unresponsive to verbal or tactile stimuli. Neurological evaluation is recommended with some workup like EKG and CAT scan of the brain 03/15/2018 Patient remains unresponsive, and change from last time I saw the patient. Patient remains on antibiotic as per ID recommendation. Blood pressure medication and his blood pressure is now is currently better controlled .patient is currently on hemodialysis on Saturday, Saturday and Saturday schedule. Nephrology team are following the patient Prognosis remains poor 03-16-18 Patient remains unresponsive, nephrology follow us is appreciated, pt was started on Drabepoetin oral by nephrology team.patient remains on hemodialysis as scheduled. He has a tracheostomy on the oxygen and being fed via PEG tube. CBC and BMP looks stable compared to previous results Prognosis remains poor 03/17/2018 Patient remains unresponsive, nephrology follow us is appreciated, pt was started on Drabepoetin oral by nephrology team.patient remains on hemodialysis as scheduled. He has a tracheostomy on the oxygen and being fed via PEG tube. CBC and BMP looks stable compared to previous results Prognosis remains poor 03/18/2018 Patient remains unresponsive, nephrology follow us is appreciated, pt was started on Drabepoetin oral by nephrology team.patient remains on hemodialysis as scheduled. He has a tracheostomy on the oxygen and being fed via PEG tube. CBC and BMP looks stable compared to previous results. nephrology follow is appreciated ,pt is on lasix for fluid overload, check vancomycin level. Prognosis remains poor 03/19/2018 Patient remains unresponsive, nephrology follow us is appreciated, pt was started on Drabepoetin oral by nephrology team.patient remains on hemodialysis as scheduled. He has a tracheostomy on the oxygen and being fed via PEG tube. CBC and BMP looks stable compared to previous results. nephrology follow is appreciated ,pt is on lasix for fluid overload, Prognosis remains poor 03/20/2018 Patient remains unresponsive, nephrology follow us is appreciated, pt was started on Drabepoetin oral by nephrology team.patient remains on hemodialysis as scheduled. meciation adjustment by nephrology team is noted. He has a tracheostomy on the oxygen and being fed via PEG tube. CBC and BMP looks stable compared to previous results. ,pt is on lasix for fluid overload, Prognosis remains poor Objective - Vital Signs Vital signs: Vital Signs Temp 100.9 F H 03/20/18 21:00 Pulse 75 03/20/18 21:00 Resp 21 03/20/18 21:00 BP 129/73 03/20/18 21:00 Pulse Ox 98 03/20/18 21:00 Intake & Output 03/20/18 03/20/18 03/21/18 06:59 18:59 06:59 Intake Total 619 1348 180 Output Total 100 222 Balance 519 1126 180 Weight 72.5 kg 72.5 kg Intake: IV 115 NS 115 Intake, IV Titration 340 Amount Sodium Chloride 0.9% 500 240 ml @ 0 mls/hr IV .[facility] Rx#:[id number] Valproate Sodium 750 mg 100 In Sodium Chloride 0.9% 50 ml @ 50 mls/hr IVPB [facility] Rx#:[id number] Oral 0 Tube Feeding 504 1008 180 Output: Urine 100 220 Uretheral (Delcid) 100 135 Stool 2 Other: Voiding Method Indwelling Catheter Indwelling Catheter ABP, PAP, CO, CI - Last Documented Arterial Blood Pressure 135/56 - Exam -GENERAL: The patient is unresponsive , does not open eyes,intubated. not in any acute distress. Well developed, HEENT: Pupils are round and equally reacting to light. EOMI. No scleral icterus. No conjunctival pallor. Normocephalic, atraumatic. No pharyngeal erythema. No thyromegaly. CARDIOVASCULAR: S1 and S2 present. No murmurs, rubs, or gallops. -PULMONARY: Chest is clear to auscultation, no wheezing. Bilateral scattered crackles. ABDOMEN: Soft, nontender, nondistended, normoactive bowel sounds. No palpable organomegaly. MUSCULOSKELETAL: No joint swelling or deformity. EXTREMITIES: No cyanosis, clubbing, or pedal edema. -s/p right BKA -NEUROLOGICAL: unresponsive to verbal or painful stinuli, does not open eyes. SKIN: No rashes. - Labs CBC & Chem 7: 03/17/18 06:38 03/20/18 09:40 Labs: Abnormal Lab Results - Last 24 Hours (Table) 03/20/18 03/20/18 03/20/18 Range/Units 00:01 04:18 08:40 Sodium (137-145) mmol/L BUN (9-20) mg/dL Creatinine (0.66-1.25) mg/dL Glucose (74-99) mg/dL POC Glucose (mg/dL) 235 H 242 H 215 H (75-99) mg/dL 03/20/18 03/20/18 03/20/18 Range/Units 09:40 12:13 16:26 Sodium 135 L (137-145) mmol/L BUN 70 H (9-20) mg/dL Creatinine 4.03 H (0.66-1.25) mg/dL Glucose 221 H (74-99) mg/dL POC Glucose (mg/dL) 245 H 275 H (75-99) mg/dL 03/20/18 Range/Units 20:20 Sodium (137-145) mmol/L BUN (9-20) mg/dL Creatinine (0.66-1.25) mg/dL Glucose (74-99) mg/dL POC Glucose (mg/dL) 252 H (75-99) mg/dL Microbiology - Last 24 Hours (Table) 03/17/18 23:00 Blood Culture Gram Stain - Preliminary Blood Blood Culture - Preliminary Coagulase Negative Staph Assessment and Plan Plan: Assessment and Plan -Acute hypoxic respiratory failure: Secondary to congestive heart failure chronic diastolic dysfunction with acute exacerbation patient , with other causes occluded. He was started on high-dose of Lasix. Continuing with the ventilatory support, diurese well improved creatinine with Lasix. Improving -possible seizure versus metabolic encephalopathy related to low glu , neurology team is following the pt , on depakote and level checked as per neuro team recommendation -acute on chronic renal failure , f/u with nephrology. Patient is getting hemodialysis -metabolic encephalopathy , possibly secondary to all above -Sepsis with possible tracheobronchitis, positive sputum culture. Patient on antibiotic. 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 -Hypotension is possibly secondary to sedation antidepressive medications will be held and restarted as needed. Hyperlipidemia -Episode of seizure believed to be secondary to hypoglycemia and encephalopathy EEG showed diffuse slowing. patient has metabolic and toxic encephalopathy -Possible Purulent discharge from the penile orifice. Culture: Many gram- negative and positive bacteria, see report DVT and GI px. pt is on heparin and protonix prognosis is very poor
[2018-03-20] MEDS: ATORVASTATIN 10 MG TAB PO SCH (22:54)
--- NOTE | 2018-03-20 23:45 | PN ---
PROGRESS NOTE DATE OF SERVICE: 03/20/2018. REASON FOR FOLLOWUP: Fever with cough with positive blood culture. INTERVAL HISTORY: The patient still has a low-grade fever, though no other hemodynamic stability has been noted. Has been breathing comfortably, tolerating his tube feeds. No nausea or vomiting has been noticed or any diarrhea and no change in his clinical condition. He remains to be unresponsive. EXAMINATION: Blood pressure is 126/69 with a pulse of 76, temperature 98.9. He is 100% on room air. General description is an elderly male lying in bed in no distress. Respiratory system: Unlabored breathing with decreased breath sounds in the base, no wheeze. Heart S1, S2. Regular rate and rhythm. Abdomen soft, no tenderness. LABS: BUN of 70, creatinine 4.03. Blood cultures showing coagulase negative Staph. DIAGNOSTIC IMPRESSION AND PLAN: Patient with fever in a patient who did have a positive blood culture coag negative Staph multiple times. The patient did have a subclavian catheter for dialysis. Currently covered with vancomycin that will be continued. We will repeat a chest x-ray and get a UA culture as well and if the fever persist, may add cefepime to cover for the gram-negative as well. Continue. Overall prognosis remains to be guarded and care should be considered. MMODL / IJN: [id number] /
[2018-03-21 00:24] LABS: Glucose,Whole Blood 238 mg/dL (75-99)
[2018-03-21] MEDS: HEPARIN SODIUM,PORCINE 5,000 UNIT/ML 1 ML VIAL SQ SCH ×4 (00:44→23:53)
[2018-03-21] MEDS: INSULIN ASPART 100 UNIT/ML 1 ML 10 ML VIAL SQ SCH ×7 (00:44→23:53)
[2018-03-21 04:31] LABS: Glucose,Whole Blood 185 mg/dL (75-99)
[2018-03-21 07:58] LABS: Glucose,Whole Blood 195 mg/dL (75-99)
[2018-03-21] MEDS: amLODIPine 10 MG TAB PO SCH (08:36)
[2018-03-21] MEDS: CHLORHEXIDINE GLUCONATE 15 ML CUP MUCOUS MEM SCH ×2 (08:36→21:51)
[2018-03-21] MEDS: DOCUSATE ORAL SOLN 100 MG/10 ML CUP PO SCH ×2 (08:37→21:51)
[2018-03-21] MEDS: cloNIDine HCL 0.1 MG TAB PO SCH ×3 (08:37→21:52)
[2018-03-21] MEDS: FUROSEMIDE 80 MG TAB PO SCH ×2 (08:37→15:22)
[2018-03-21] MEDS: LOSARTAN 50 MG TAB PO SCH (08:38)
[2018-03-21] MEDS: GABAPENTIN 100 MG CAP PO SCH ×3 (08:38→21:52)
[2018-03-21] MEDS: LABETALOL 200 MG TAB PO SCH ×3 (08:38→21:52)
[2018-03-21] MEDS: hydrALAZINE HCL 50 MG TAB PO SCH ×3 (08:38→21:52)
[2018-03-21] MEDS: PANTOPRAZOLE 40 MG TABLET PO SCH (08:38)
[2018-03-21] MEDS: VALPROATE SODIUM 750 MG in SODIUM CHLORIDE 0.9% 50 ML IVPB SCH ×3 (08:39→21:56)
[2018-03-21] MEDS: THIAMINE 100 MG/ML 2 ML VIAL IVP SCH (08:39)
[2018-03-21] MEDS: TAMSULOSIN 0.4 MG CAP.ER.24H PO SCH (08:39)
[2018-03-21] MEDS: IPRATROPIUM-ALBUTEROL 3 ML NEB INHALATION SCH ×4 (08:52→19:56)
[2018-03-21 09:26] LABS: Calcium 9.2 mg/dL (8.4-10.2); Potassium 4.3 mmol/L (3.5-5.1)
[2018-03-21 09:32] LABS: Vancomycin,Random 26.8 ug/mL
[2018-03-21 12:23] LABS: Glucose,Whole Blood 198 mg/dL (75-99)
--- NOTE | 2018-03-21 13:27 | P.PN ---
Subjective Patient is seen in follow-up for end-stage renal disease. He is maintained on hemodialysis on a Saturday schedule. Etiology is biopsy-proven diabetic kidney disease. Hemodynamically stable. Currently being treated for staph bacteremia. Patient underwent a tracheostomy. He remains unresponsive. Scheduled for hemodialysis today. Vital signs are stable. General: The patient appeared well nourished and normally developed. HEENT: Head exam is unremarkable. Neck is without jugular venous distension. Tracheostomy noted. LUNGS: Lungs are clear to auscultation and percussion. Breath sounds decreased. HEART: Rate and Rhythm are regular. First and second heart sounds normal. No murmurs, rubs or gallops. ABDOMEN: Abdominal exam reveals normal bowel sounds. Non-tender and non- distended. No evidence of peritonitis. EXTREMITITES: No clubbing, cyanosis, or edema. Right below-knee amputation noted. Objective - Vital Signs Vital signs: Vital Signs Temp 97.3 F L 03/21/18 04:44 Pulse 76 03/21/18 11:48 Resp 20 03/21/18 04:44 BP 126/69 03/21/18 04:44 Pulse Ox 98 03/21/18 04:44 Intake & Output 03/20/18 03/21/18 03/21/18 18:59 06:59 18:59 Intake Total 1348 640 180 Output Total 222 180 Balance 1126 460 180 Weight 72.5 kg 68 kg Intake: IV 100 NS 100 Intake, IV Titration 340 Amount Sodium Chloride 0.9% 500 240 ml @ 0 mls/hr IV .[facility] Rx#:[id number] Valproate Sodium 750 mg 100 In Sodium Chloride 0.9% 50 ml @ 50 mls/hr IVPB TID [facility] Rx#:[id number] Oral 0 Tube Feeding 1008 540 180 Output: Urine 220 180 Uretheral (Delcid) 135 Stool 2 Other: Voiding Method Indwelling Catheter Indwelling Catheter Indwelling Catheter # Voids 0 ABP, PAP, CO, CI - Last Documented Arterial Blood Pressure 135/56 - Labs CBC & Chem 7: 03/17/18 06:38 03/21/18 08:13 Labs: Abnormal Lab Results - Last 24 Hours (Table) 03/20/18 03/20/18 03/21/18 Range/Units 16:26 20:20 00:04 Sodium (137-145) mmol/L BUN (9-20) mg/dL Creatinine (0.66-1.25) mg/dL Glucose (74-99) mg/dL POC Glucose (mg/dL) 275 H 252 H 238 H (75-99) mg/dL 03/21/18 03/21/18 03/21/18 Range/Units 04:10 07:56 08:13 Sodium 135 L (137-145) mmol/L BUN 93 H (9-20) mg/dL Creatinine 5.35 H (0.66-1.25) mg/dL Glucose 183 H (74-99) mg/dL POC Glucose (mg/dL) 185 H 195 H (75-99) mg/dL 03/21/18 Range/Units 12:21 Sodium (137-145) mmol/L BUN (9-20) mg/dL Creatinine (0.66-1.25) mg/dL Glucose (74-99) mg/dL POC Glucose (mg/dL) 198 H (75-99) mg/dL Assessment and Plan Plan: Assessment: 1. End-stage renal disease maintained on hemodialysis on a Saturday schedule via permacath. Etiology is biopsy proven diabetic kidney disease. 2. Volume overload. Improved with ultrafiltration. 3. Hypertension with chronic kidney disease. Controlled. 4. Staph bacteremia maintained on IV vancomycin. Vancomycin level 26.8 as of this morning. 5. Diabetes mellitus. 6. History of hepatitis C. 7. Reactive hepatitis B surface antigen. 7. Anemia of chronic kidney disease maintained on Aranesp. Iron deficiency noted. 8. Chronic kidney disease mineral bone disease. Phosphorus level 6.1 March 19 - above goal. Plan: Hemodialysis today. Maintain current antihypertensives. Monitor vancomycin levels. Dose to be adjusted for renal function. I will hold off on IV iron due to bacteremia. Monitor phosphorus. Renvela cannot be given with tube feeds. I will hold off on PhosLo as his corrected calcium is near 10. Case management working on discharge planning. Overall prognosis guarded. Hospice should be considered.
[2018-03-21 15:46] LABS: Glucose,Whole Blood 143 mg/dL (75-99)
--- NOTE | 2018-03-21 16:10 | P.PN ---
Subjective Patient is a 67-year-old -[place] male who is being followed by the neurology service for possible seizure. Patient was brought to [facility] emergency room with shortness of breath. He was found to have significant pulmonary edema. Patient does have stage IV chronic kidney disease. Patient was being treated in the emergency room when one of the nurses noted patient to be unresponsive. Patient had questionable jerking activity. Patient had significant hypoglycemia in the 20s. He was given D50, intubated and sedated. Patient is currently in the ICU. Computed tomography scan of the brain was done which showed no acute abnormality. Computed tomography scan did show evidence of mild generalized atrophy. Patient was noted to have some rhythmic jerking. Patient was taken off propofol and had an EEG done. EEG showed generalized slowing of the background rhythm. EEG also showed significant triphasic waves which is commonly seen in hepatic pathology. Myoclonic activity was described. Patient was started on Depakote 500 mg every 12 hours IV. Staff reports no further jerking movements since starting Depakote. Patient remains sedated with propofol and on mechanical ventilation. acute kidney injury on chronic kidney disease. Patient has chronic kidney disease stage IV secondary to biopsy-proven diabetic kidney disease with severe chronicity. His baseline creatinine has been in the range of 4-5. Creatinine was 7.65 on admission 02/23/2018 this is my first day taking care of the pt , pt is still on vent , he has been off sedation , however he is still not waking up as expected . pt could have metabolic encephalopathy , vs other . pt with acute on chronic Kidney disease stage IV. nephrology are following the case .Creatinine was 7.65 on admission and is 5.99 today. pt is been seen by neurology who recommended to repeat the EEG and result is pending.pt had subtherapeutic level and extra doses were provided for him yesterday EEG from 02/21: abnormal with significant triphasic waves which is commonly seen in hepatic encephalopahty pt still does not respond to pain stimuli. despite been off sedation since this morning. pupils are equal and reactive to light, meningeal signs were absent when i examined the pt this morning pt has h/o Hep C and B , we will check ammonia level and other work up like B12 ,thyroid function test, syphlis screen ,repeat CT of the head ,with neurology follow up. no fever , no leukocytosis 02/24/2018 no change from yesterday in his mental status from the first time a saw her , still unresponsive , neurologist team is following the pt and recommended repeat EEG. critical care input is appreciated . ammonia level and TSH were negative , repeat CT head is negative for acute process as well 02/25/2018 Patient remains unresponsive as before. Repeat EEG showing moderate encephalopathy, significant triphasic waves consistent with hepatic disease. Occasional sharp wave consistent with due to seizure threshold. But no generalized epileptiform discharge. Patient is a plan to have trach placed on the surgical site. As well as dialysis catheter for dialysis. Patient has Delcid catheter with 40 mL in the bag. There is purulent discharge from the penis. Discussed with staff. Check culture for the discharge, change. AND CHECK BLADDER SCAN 02/26/2018 Patient remains unresponsive, the same. Patient had a dialysis catheter placed. Than his going for hemodialysis currently. Patient has been evaluated by phys assistant on their input is appreciated. Patient is planned for going for PEG and tracheostomy possibly tomorrow, as per family wishes. To call care consult is appreciated. He has positive sputum culture was fracture and staphylococcus. urine discharge so there was has been changed. Urine culture is pending. We'll consult infectious diseases specialist. Patient with mild leukocytosis 02/27/2018 No improvement in the patient mental status, he remains unresponsive and intubated. Went for dialysis yesterday and today. And PEG tube with check estimated are planned for the patient's in 1 or 2 days. Prognosis remains very poor. The sputum culture is growing Serratia and staph aureus. ID consult is appreciated and patient was started on cefepime. Also patient got IV vancomycin doses . Pulmonary/critical care input is appreciated. Hemoglobin at 7.1. No leukocytosis. He had fever yesterday at 100.2 02/28/2018 pt is unresponsive, intubated , he is undergoing hemodialysis , and he is on antibiotic , he is responding a little bit to suctioning his mouth but only minimally , prognosis remains poor and guarded. pt had PEG and treacheostomy, he remains on cefepime per ID recommendation . pt has Serratia marcescens and staph aureus. while his penile c/s showing many gr-ve bacilli (areobic and unaerobic) and gram positive cocci (unaerobic) 03/03/2018 Patient is unresponsive, has tracheostomy and PEG tube. His undergoing hemodialysis. He is on antibiotics for infection his respiratory and urinary systems. Patient is smoking a grimace to painful stimuli but no more more than that. Continue with supportive care. Prognosis remains very poor 03/04/2018 No change in mental status of the patient, he remains unresponsive. Status post tracheostomy and PEG tube insertion. Continue with hemo-dialysis. And nephrology team are following the patient Continue with antibiotic. Continue with valproate. Critical care/pulmonary team evaluation and follow-up is appreciated. He is off mechanical ventilation currently and continue with trach collar. Continue with Protonix for GI prophylaxis. Patient has some grimace to painful stimuli, however unresponsive to verbal or tactile stimuli. Neurological evaluation is recommended with some workup like EKG and CAT scan of the brain 03/15/2018 Patient remains unresponsive, and change from last time I saw the patient. Patient remains on antibiotic as per ID recommendation. Blood pressure medication and his blood pressure is now is currently better controlled .patient is currently on hemodialysis on Saturday, Saturday and Saturday schedule. Nephrology team are following the patient Prognosis remains poor 03-16-18 Patient remains unresponsive, nephrology follow us is appreciated, pt was started on Drabepoetin oral by nephrology team.patient remains on hemodialysis as scheduled. He has a tracheostomy on the oxygen and being fed via PEG tube. CBC and BMP looks stable compared to previous results Prognosis remains poor 03/17/2018 Patient remains unresponsive, nephrology follow us is appreciated, pt was started on Drabepoetin oral by nephrology team.patient remains on hemodialysis as scheduled. He has a tracheostomy on the oxygen and being fed via PEG tube. CBC and BMP looks stable compared to previous results Prognosis remains poor 03/18/2018 Patient remains unresponsive, nephrology follow us is appreciated, pt was started on Drabepoetin oral by nephrology team.patient remains on hemodialysis as scheduled. He has a tracheostomy on the oxygen and being fed via PEG tube. CBC and BMP looks stable compared to previous results. nephrology follow is appreciated ,pt is on lasix for fluid overload, check vancomycin level. Prognosis remains poor 03/19/2018 Patient remains unresponsive, nephrology follow us is appreciated, pt was started on Drabepoetin oral by nephrology team.patient remains on hemodialysis as scheduled. He has a tracheostomy on the oxygen and being fed via PEG tube. CBC and BMP looks stable compared to previous results. nephrology follow is appreciated ,pt is on lasix for fluid overload, Prognosis remains poor 03/20/2018 Patient remains unresponsive, nephrology follow us is appreciated, pt was started on Drabepoetin oral by nephrology team.patient remains on hemodialysis as scheduled. meciation adjustment by nephrology team is noted. He has a tracheostomy on the oxygen and being fed via PEG tube. CBC and BMP looks stable compared to previous results. ,pt is on lasix for fluid overload, Prognosis remains poor 03/21/2018 Patient remains unresponsive, nephrology follow us is appreciated, pt was started on Drabepoetin oral by nephrology team.patient remains on hemodialysis as scheduled. meciation adjustment by nephrology team is noted. He has a tracheostomy on the oxygen and being fed via PEG tube. CBC and BMP looks stable compared to previous results. ,pt is on lasix for fluid overload, Prognosis remains poor I called the office of [facility] @ [phone] and left a message with call back number to call me back to discuss the plan of care for the pt Objective - Vital Signs Vital signs: Vital Signs Temp 97.4 F L 03/21/18 13:00 Pulse 76 03/21/18 15:48 Resp 12 03/21/18 13:00 BP 124/68 03/21/18 13:00 Pulse Ox 98 03/21/18 04:44 Intake & Output 03/20/18 03/21/18 03/21/18 18:59 06:59 18:59 Intake Total 1348 640 180 Output Total 222 180 Balance 1126 460 180 Weight 72.5 kg 68 kg Intake: IV 100 NS 100 Intake, IV Titration 340 Amount Sodium Chloride 0.9% 500 240 ml @ 0 mls/hr IV .[facility] Rx#:[id number] Valproate Sodium 750 mg 100 In Sodium Chloride 0.9% 50 ml @ 50 mls/hr IVPB TID [facility] Rx#:[id number] Oral 0 Tube Feeding 1008 540 180 Output: Urine 220 180 Uretheral (Delcid) 135 Stool 2 Other: Voiding Method Indwelling Catheter Indwelling Catheter Indwelling Catheter # Voids 0 ABP, PAP, CO, CI - Last Documented Arterial Blood Pressure 135/56 - Exam -GENERAL: The patient is unresponsive , does not open eyes,intubated. not in any acute distress. Well developed, HEENT: Pupils are round and equally reacting to light. EOMI. No scleral icterus. No conjunctival pallor. Normocephalic, atraumatic. No pharyngeal erythema. No thyromegaly. CARDIOVASCULAR: S1 and S2 present. No murmurs, rubs, or gallops. -PULMONARY: Chest is clear to auscultation, no wheezing. Bilateral scattered crackles. ABDOMEN: Soft, nontender, nondistended, normoactive bowel sounds. No palpable organomegaly. MUSCULOSKELETAL: No joint swelling or deformity. EXTREMITIES: No cyanosis, clubbing, or pedal edema. -s/p right BKA -NEUROLOGICAL: unresponsive to verbal or painful stinuli, does not open eyes. SKIN: No rashes. - Labs CBC & Chem 7: 03/17/18 06:38 03/21/18 08:13 Labs: Abnormal Lab Results - Last 24 Hours (Table) 03/20/18 03/20/18 03/21/18 Range/Units 16:26 20:20 00:04 Sodium (137-145) mmol/L BUN (9-20) mg/dL Creatinine (0.66-1.25) mg/dL Glucose (74-99) mg/dL POC Glucose (mg/dL) 275 H 252 H 238 H (75-99) mg/dL 03/21/18 03/21/18 03/21/18 Range/Units 04:10 07:56 08:13 Sodium 135 L (137-145) mmol/L BUN 93 H (9-20) mg/dL Creatinine 5.35 H (0.66-1.25) mg/dL Glucose 183 H (74-99) mg/dL POC Glucose (mg/dL) 185 H 195 H (75-99) mg/dL 03/21/18 03/21/18 Range/Units 12:21 15:36 Sodium (137-145) mmol/L BUN (9-20) mg/dL Creatinine (0.66-1.25) mg/dL Glucose (74-99) mg/dL POC Glucose (mg/dL) 198 H 143 H (75-99) mg/dL Assessment and Plan Plan: Assessment and Plan -Acute hypoxic respiratory failure: Secondary to congestive heart failure chronic diastolic dysfunction with acute exacerbation patient , with other causes occluded. He was started on high-dose of Lasix. Continuing with the ventilatory support, diurese well improved creatinine with Lasix. Improving -possible seizure versus metabolic encephalopathy related to low glu , neurology team is following the pt , on depakote and level checked as per neuro team recommendation -acute on chronic renal failure , f/u with nephrology. Patient is getting hemodialysis -metabolic encephalopathy , possibly secondary to all above -Sepsis with possible tracheobronchitis, positive sputum culture. Patient on antibiotic. 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 -Hypotension is possibly secondary to sedation antidepressive medications will be held and restarted as needed. Hyperlipidemia -Episode of seizure believed to be secondary to hypoglycemia and encephalopathy EEG showed diffuse slowing. patient has metabolic and toxic encephalopathy -Possible Purulent discharge from the penile orifice. Culture: Many gram- negative and positive bacteria, see report DVT and GI px. pt is on heparin and protonix prognosis is very poor
[2018-03-21 19:08] LABS: Glucose,Whole Blood 133 mg/dL (75-99)
[2018-03-21] MEDS: ATORVASTATIN 10 MG TAB PO SCH (21:51)
[2018-03-21 23:49] LABS: Glucose,Whole Blood 238 mg/dL (75-99)
[2018-03-22 04:05] LABS: Glucose,Whole Blood 248 mg/dL (75-99)
[2018-03-22] MEDS: INSULIN ASPART 100 UNIT/ML 1 ML 10 ML VIAL SQ SCH ×5 (04:40→20:08)
[2018-03-22 07:42] LABS: Glucose,Whole Blood 226 mg/dL (75-99)
[2018-03-22] MEDS: IPRATROPIUM-ALBUTEROL 3 ML NEB INHALATION SCH ×4 (08:08→19:57)
--- NOTE | 2018-03-22 08:11 | PN ---
PROGRESS NOTE DATE OF SERVICE: 03/21/2018. REASON FOR FOLLOWUP: Fever and positive blood culture. INTERVAL HISTORY: The patient is currently afebrile. He is hemodynamically stable. He remains to be unresponsive, unable to provide any history. Tolerating his tube feeds. No diarrhea noticed by the nursing staff. EXAMINATION: Blood pressure 139/70 with a pulse of 79, temperature of 99. He is 98% on trach collar. General description is a an elderly male lying in bed in no distress. RESPIRATORY SYSTEM: Unlabored breathing with decreased breath sounds in the bases. No wheeze. HEART: S1, S2. Regular rate and rhythm. ABDOMEN: Soft, no tenderness. LABS: BUN of 9 with a creatinine 5.35. Vancomycin trough level was 26.8. DIAGNOSTIC IMPRESSION AND PLAN: Patient with off and on fever in a patient who does have positive blood culture, multiple with coagulase-negative Staph in a patient who does have a PermCath for the dialysis, questionable source, currently being maintained on vancomycin. In view of overall poor prognosis, hospice may be better option for him. Continue supportive care. MMODL / IJN: [id number] /
[2018-03-22] MEDS: THIAMINE 100 MG/ML 2 ML VIAL IVP SCH (08:22)
[2018-03-22] MEDS: HEPARIN SODIUM,PORCINE 5,000 UNIT/ML 1 ML VIAL SQ SCH ×2 (08:22→16:20)
[2018-03-22] MEDS: LOSARTAN 50 MG TAB PO SCH (08:23)
[2018-03-22] MEDS: LABETALOL 200 MG TAB PO SCH ×3 (08:23→22:20)
[2018-03-22] MEDS: GABAPENTIN 100 MG CAP PO SCH ×3 (08:24→22:05)
[2018-03-22] MEDS: hydrALAZINE HCL 50 MG TAB PO SCH ×3 (08:24→22:20)
[2018-03-22] MEDS: CHLORHEXIDINE GLUCONATE 15 ML CUP MUCOUS MEM SCH ×2 (08:25→22:20)
[2018-03-22] MEDS: PANTOPRAZOLE 40 MG TABLET PO SCH (08:25)
[2018-03-22] MEDS: VALPROATE SODIUM 750 MG in SODIUM CHLORIDE 0.9% 50 ML IVPB SCH ×3 (08:25→22:20)
[2018-03-22] MEDS: TAMSULOSIN 0.4 MG CAP.ER.24H PO SCH (08:25)
[2018-03-22] MEDS: FUROSEMIDE 80 MG TAB PO SCH ×2 (08:25→16:19)
[2018-03-22] MEDS: amLODIPine 10 MG TAB PO SCH (08:25)
[2018-03-22] MEDS: DOCUSATE ORAL SOLN 100 MG/10 ML CUP PO SCH (08:25)
[2018-03-22] MEDS: cloNIDine HCL 0.1 MG TAB PO SCH ×3 (08:26→22:20)
[2018-03-22 09:28] LABS: Potassium 4.1 mmol/L (3.5-5.1)
[2018-03-22 10:08] LABS: Vancomycin,Random 19.7 ug/mL
--- NOTE | 2018-03-22 10:24 | P.PN ---
Subjective Patient is seen in follow-up for end-stage renal disease. He is maintained on hemodialysis on a Saturday schedule. Etiology is biopsy-proven diabetic kidney disease. Hemodynamically stable. Currently being treated for staph bacteremia. Patient underwent a tracheostomy. He remains unresponsive. Vital signs are stable. General: The patient appeared well nourished and normally developed. HEENT: Head exam is unremarkable. Neck is without jugular venous distension. Tracheostomy noted. LUNGS: Lungs are clear to auscultation and percussion. Breath sounds decreased. HEART: Rate and Rhythm are regular. First and second heart sounds normal. No murmurs, rubs or gallops. ABDOMEN: Abdominal exam reveals normal bowel sounds. Non-tender and non- distended. No evidence of peritonitis. EXTREMITITES: No clubbing, cyanosis, or edema. Right below-knee amputation noted. Objective - Vital Signs Vital signs: Vital Signs Temp 97.9 F 03/22/18 05:00 Pulse 80 03/22/18 08:21 Resp 16 03/22/18 08:11 BP 133/70 03/22/18 05:00 Pulse Ox 97 03/22/18 05:00 Intake & Output 03/21/18 03/22/18 03/22/18 18:59 06:59 18:59 Intake Total 640 550 180 Output Total 200 Balance 640 350 180 Weight 72.5 kg Intake: IV 10 NS 10 Intake, IV Titration 100 Amount Valproate Sodium 750 mg 100 In Sodium Chloride 0.9% 50 ml @ 50 mls/hr IVPB TID [facility] Rx#:[id number] Tube Feeding 540 540 180 Output: Urine 200 Other: Voiding Method Indwelling Catheter Indwelling Catheter Indwelling Catheter # Bowel Movements 3 ABP, PAP, CO, CI - Last Documented Arterial Blood Pressure 135/56 - Labs CBC & Chem 7: 03/17/18 06:38 03/22/18 08:35 Labs: Abnormal Lab Results - Last 24 Hours (Table) 03/21/18 03/21/18 03/21/18 Range/Units 12:21 15:36 19:06 BUN (9-20) mg/dL Creatinine (0.66-1.25) mg/dL Glucose (74-99) mg/dL POC Glucose (mg/dL) 198 H 143 H 133 H (75-99) mg/dL 03/21/18 03/22/18 03/22/18 Range/Units 23:47 03:53 07:41 BUN (9-20) mg/dL Creatinine (0.66-1.25) mg/dL Glucose (74-99) mg/dL POC Glucose (mg/dL) 238 H 248 H 226 H (75-99) mg/dL 03/22/18 Range/Units 08:35 BUN 68 H (9-20) mg/dL Creatinine 3.56 H (0.66-1.25) mg/dL Glucose 200 H (74-99) mg/dL POC Glucose (mg/dL) (75-99) mg/dL Microbiology - Last 24 Hours (Table) 03/17/18 23:00 Blood Culture Gram Stain - Final Blood Blood Culture - Preliminary Coagulase Negative Staph Coagulase Negative Staph#2 Assessment and Plan Plan: Assessment: 1. End-stage renal disease maintained on hemodialysis on a Saturday schedule via permacath. Etiology is biopsy proven diabetic kidney disease. 2. Volume overload. Improved with ultrafiltration. 3. Hypertension with chronic kidney disease. Controlled. 4. Staph bacteremia maintained on IV vancomycin. Vancomycin level 26.8 as of this morning. 5. Diabetes mellitus. 6. History of hepatitis C. 7. Reactive hepatitis B surface antigen. 7. Anemia of chronic kidney disease maintained on Aranesp. Iron deficiency noted. 8. Chronic kidney disease mineral bone disease. Phosphorus level 6.1 March 19 - above goal. Plan: Hemodialysis Saturday. Maintain current antihypertensives. Monitor vancomycin levels. Dose to be adjusted for renal function. I will hold off on IV iron due to bacteremia. Monitor phosphorus. Renvela cannot be given with tube feeds. I will hold off on PhosLo as his corrected calcium is near 10. Case management working on discharge planning. Overall prognosis guarded. Hospice should be considered.
[2018-03-22 12:14] LABS: Glucose,Whole Blood 199 mg/dL (75-99)
[2018-03-22] MEDS ORDERED: VANCOMYCIN 1,250 MG in SODIUM CHLORIDE 0.9% 250 ML IVPB ONE (14:00)
[2018-03-22 16:11] LABS: Glucose,Whole Blood 247 mg/dL (75-99)
[2018-03-22 20:06] LABS: Glucose,Whole Blood 204 mg/dL (75-99)
[2018-03-22] MEDS: ATORVASTATIN 10 MG TAB PO SCH (22:20)
--- NOTE | 2018-03-22 23:29 | P.PN ---
Subjective Patient is a 67-year-old -[place] male who is being followed by the neurology service for possible seizure. Patient was brought to [facility] emergency room with shortness of breath. He was found to have significant pulmonary edema. Patient does have stage IV chronic kidney disease. Patient was being treated in the emergency room when one of the nurses noted patient to be unresponsive. Patient had questionable jerking activity. Patient had significant hypoglycemia in the 20s. He was given D50, intubated and sedated. Patient is currently in the ICU. Computed tomography scan of the brain was done which showed no acute abnormality. Computed tomography scan did show evidence of mild generalized atrophy. Patient was noted to have some rhythmic jerking. Patient was taken off propofol and had an EEG done. EEG showed generalized slowing of the background rhythm. EEG also showed significant triphasic waves which is commonly seen in hepatic pathology. Myoclonic activity was described. Patient was started on Depakote 500 mg every 12 hours IV. Staff reports no further jerking movements since starting Depakote. Patient remains sedated with propofol and on mechanical ventilation. acute kidney injury on chronic kidney disease. Patient has chronic kidney disease stage IV secondary to biopsy-proven diabetic kidney disease with severe chronicity. His baseline creatinine has been in the range of 4-5. Creatinine was 7.65 on admission 02/23/2018 this is my first day taking care of the pt , pt is still on vent , he has been off sedation , however he is still not waking up as expected . pt could have metabolic encephalopathy , vs other . pt with acute on chronic Kidney disease stage IV. nephrology are following the case .Creatinine was 7.65 on admission and is 5.99 today. pt is been seen by neurology who recommended to repeat the EEG and result is pending.pt had subtherapeutic level and extra doses were provided for him yesterday EEG from 02/21: abnormal with significant triphasic waves which is commonly seen in hepatic encephalopahty pt still does not respond to pain stimuli. despite been off sedation since this morning. pupils are equal and reactive to light, meningeal signs were absent when i examined the pt this morning pt has h/o Hep C and B , we will check ammonia level and other work up like B12 ,thyroid function test, syphlis screen ,repeat CT of the head ,with neurology follow up. no fever , no leukocytosis 02/24/2018 no change from yesterday in his mental status from the first time a saw her , still unresponsive , neurologist team is following the pt and recommended repeat EEG. critical care input is appreciated . ammonia level and TSH were negative , repeat CT head is negative for acute process as well 02/25/2018 Patient remains unresponsive as before. Repeat EEG showing moderate encephalopathy, significant triphasic waves consistent with hepatic disease. Occasional sharp wave consistent with due to seizure threshold. But no generalized epileptiform discharge. Patient is a plan to have trach placed on the surgical site. As well as dialysis catheter for dialysis. Patient has Delcid catheter with 40 mL in the bag. There is purulent discharge from the penis. Discussed with staff. Check culture for the discharge, change. AND CHECK BLADDER SCAN 02/26/2018 Patient remains unresponsive, the same. Patient had a dialysis catheter placed. Than his going for hemodialysis currently. Patient has been evaluated by regulatory attorney on their input is appreciated. Patient is planned for going for PEG and tracheostomy possibly tomorrow, as per family wishes. To call care consult is appreciated. He has positive sputum culture was fracture and staphylococcus. urine discharge so there was has been changed. Urine culture is pending. We'll consult infectious diseases specialist. Patient with mild leukocytosis 02/27/2018 No improvement in the patient mental status, he remains unresponsive and intubated. Went for dialysis yesterday and today. And PEG tube with check estimated are planned for the patient's in 1 or 2 days. Prognosis remains very poor. The sputum culture is growing Serratia and staph aureus. ID consult is appreciated and patient was started on cefepime. Also patient got IV vancomycin doses . Pulmonary/critical care input is appreciated. Hemoglobin at 7.1. No leukocytosis. He had fever yesterday at 100.2 02/28/2018 pt is unresponsive, intubated , he is undergoing hemodialysis , and he is on antibiotic , he is responding a little bit to suctioning his mouth but only minimally , prognosis remains poor and guarded. pt had PEG and treacheostomy, he remains on cefepime per ID recommendation . pt has Serratia marcescens and staph aureus. while his penile c/s showing many gr-ve bacilli (areobic and unaerobic) and gram positive cocci (unaerobic) 03/03/2018 Patient is unresponsive, has tracheostomy and PEG tube. His undergoing hemodialysis. He is on antibiotics for infection his respiratory and urinary systems. Patient is smoking a grimace to painful stimuli but no more more than that. Continue with supportive care. Prognosis remains very poor 03/04/2018 No change in mental status of the patient, he remains unresponsive. Status post tracheostomy and PEG tube insertion. Continue with hemo-dialysis. And nephrology team are following the patient Continue with antibiotic. Continue with valproate. Critical care/pulmonary team evaluation and follow-up is appreciated. He is off mechanical ventilation currently and continue with trach collar. Continue with Protonix for GI prophylaxis. Patient has some grimace to painful stimuli, however unresponsive to verbal or tactile stimuli. Neurological evaluation is recommended with some workup like EKG and CAT scan of the brain 03/15/2018 Patient remains unresponsive, and change from last time I saw the patient. Patient remains on antibiotic as per ID recommendation. Blood pressure medication and his blood pressure is now is currently better controlled .patient is currently on hemodialysis on Saturday, Saturday and Saturday schedule. Nephrology team are following the patient Prognosis remains poor 03-16-18 Patient remains unresponsive, nephrology follow us is appreciated, pt was started on Drabepoetin oral by nephrology team.patient remains on hemodialysis as scheduled. He has a tracheostomy on the oxygen and being fed via PEG tube. CBC and BMP looks stable compared to previous results Prognosis remains poor 03/17/2018 Patient remains unresponsive, nephrology follow us is appreciated, pt was started on Drabepoetin oral by nephrology team.patient remains on hemodialysis as scheduled. He has a tracheostomy on the oxygen and being fed via PEG tube. CBC and BMP looks stable compared to previous results Prognosis remains poor 03/18/2018 Patient remains unresponsive, nephrology follow us is appreciated, pt was started on Drabepoetin oral by nephrology team.patient remains on hemodialysis as scheduled. He has a tracheostomy on the oxygen and being fed via PEG tube. CBC and BMP looks stable compared to previous results. nephrology follow is appreciated ,pt is on lasix for fluid overload, check vancomycin level. Prognosis remains poor 03/19/2018 Patient remains unresponsive, nephrology follow us is appreciated, pt was started on Drabepoetin oral by nephrology team.patient remains on hemodialysis as scheduled. He has a tracheostomy on the oxygen and being fed via PEG tube. CBC and BMP looks stable compared to previous results. nephrology follow is appreciated ,pt is on lasix for fluid overload, Prognosis remains poor 03/20/2018 Patient remains unresponsive, nephrology follow us is appreciated, pt was started on Drabepoetin oral by nephrology team.patient remains on hemodialysis as scheduled. meciation adjustment by nephrology team is noted. He has a tracheostomy on the oxygen and being fed via PEG tube. CBC and BMP looks stable compared to previous results. ,pt is on lasix for fluid overload, Prognosis remains poor 03/21/2018 Patient remains unresponsive, nephrology follow us is appreciated, pt was started on Drabepoetin oral by nephrology team.patient remains on hemodialysis as scheduled. meciation adjustment by nephrology team is noted. He has a tracheostomy on the oxygen and being fed via PEG tube. CBC and BMP looks stable compared to previous results. ,pt is on lasix for fluid overload, Prognosis remains poor I called the office of [facility] @ [phone] and left a message with call back number to call me back to discuss the plan of care for the pt 03/22/18 pt remains on hemodialysis , unresponsive. i tired to page the guardian yesterday for plan of care as prognosis is very poor. response is still pending Objective - Vital Signs Vital signs: Vital Signs Temp 98.5 F 03/22/18 12:20 Pulse 75 03/22/18 20:02 Resp 12 03/22/18 12:20 BP 132/63 03/22/18 12:20 Pulse Ox 100 03/22/18 12:20 Intake & Output 03/22/18 03/22/18 03/23/18 06:59 18:59 06:59 Intake Total 550 540 Output Total 200 Balance 350 540 Weight 72.5 kg Intake: IV 10 NS 10 Tube Feeding 540 540 Output: Urine 200 Other: Voiding Method Indwelling Catheter Indwelling Catheter # Bowel Movements 3 2 ABP, PAP, CO, CI - Last Documented Arterial Blood Pressure 135/56 - Exam -GENERAL: The patient is unresponsive , does not open eyes,intubated. not in any acute distress. Well developed, HEENT: Pupils are round and equally reacting to light. EOMI. No scleral icterus. No conjunctival pallor. Normocephalic, atraumatic. No pharyngeal erythema. No thyromegaly. CARDIOVASCULAR: S1 and S2 present. No murmurs, rubs, or gallops. -PULMONARY: Chest is clear to auscultation, no wheezing. Bilateral scattered crackles. ABDOMEN: Soft, nontender, nondistended, normoactive bowel sounds. No palpable organomegaly. MUSCULOSKELETAL: No joint swelling or deformity. EXTREMITIES: No cyanosis, clubbing, or pedal edema. -s/p right BKA -NEUROLOGICAL: unresponsive to verbal or painful stinuli, does not open eyes. SKIN: No rashes. - Labs CBC & Chem 7: 03/17/18 06:38 03/22/18 08:35 Labs: Abnormal Lab Results - Last 24 Hours (Table) 03/21/18 03/22/18 03/22/18 Range/Units 23:47 03:53 07:41 BUN (9-20) mg/dL Creatinine (0.66-1.25) mg/dL Glucose (74-99) mg/dL POC Glucose (mg/dL) 238 H 248 H 226 H (75-99) mg/dL 03/22/18 03/22/18 03/22/18 Range/Units 08:35 12:13 16:10 BUN 68 H (9-20) mg/dL Creatinine 3.56 H (0.66-1.25) mg/dL Glucose 200 H (74-99) mg/dL POC Glucose (mg/dL) 199 H 247 H (75-99) mg/dL 03/22/18 Range/Units 20:04 BUN (9-20) mg/dL Creatinine (0.66-1.25) mg/dL Glucose (74-99) mg/dL POC Glucose (mg/dL) 204 H (75-99) mg/dL Microbiology - Last 24 Hours (Table) 03/17/18 23:00 Blood Culture Gram Stain - Final Blood Blood Culture - Final Coagulase Negative Staph Coagulase Negative Staph#2 Assessment and Plan Plan: Assessment and Plan -Acute hypoxic respiratory failure: Secondary to congestive heart failure chronic diastolic dysfunction with acute exacerbation patient , with other causes occluded. He was started on high-dose of Lasix. Continuing with the ventilatory support, diurese well improved creatinine with Lasix. Improving -possible seizure versus metabolic encephalopathy related to low glu , neurology team is following the pt , on depakote and level checked as per neuro team recommendation -acute on chronic renal failure , f/u with nephrology. Patient is getting hemodialysis -metabolic encephalopathy , possibly secondary to all above -Sepsis with possible tracheobronchitis, positive sputum culture. Patient on antibiotic. 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 -Hypotension is possibly secondary to sedation antidepressive medications will be held and restarted as needed. Hyperlipidemia -Episode of seizure believed to be secondary to hypoglycemia and encephalopathy EEG showed diffuse slowing. patient has metabolic and toxic encephalopathy -Possible Purulent discharge from the penile orifice. Culture: Many gram- negative and positive bacteria, see report DVT and GI px. pt is on heparin and protonix prognosis is very poor
[2018-03-23] MEDS: HEPARIN SODIUM,PORCINE 5,000 UNIT/ML 1 ML VIAL SQ SCH ×4 (00:46→23:16)
[2018-03-23 00:48] LABS: Glucose,Whole Blood 232 mg/dL (75-99)
[2018-03-23] MEDS: INSULIN ASPART 100 UNIT/ML 1 ML 10 ML VIAL SQ SCH ×6 (00:59→21:05)
[2018-03-23 05:12] LABS: Glucose,Whole Blood 213 mg/dL (75-99)
[2018-03-23 08:28] LABS: Glucose,Whole Blood 192 mg/dL (75-99)
[2018-03-23] MEDS: IPRATROPIUM-ALBUTEROL 3 ML NEB INHALATION SCH ×4 (08:48→21:20)
[2018-03-23] MEDS: amLODIPine 10 MG TAB PO SCH (09:21)
[2018-03-23] MEDS: CHLORHEXIDINE GLUCONATE 15 ML CUP MUCOUS MEM SCH ×2 (09:21→21:06)
[2018-03-23] MEDS: DOCUSATE ORAL SOLN 100 MG/10 ML CUP PO SCH (09:22)
[2018-03-23] MEDS: cloNIDine HCL 0.1 MG TAB PO SCH ×3 (09:22→21:06)
[2018-03-23] MEDS: LABETALOL 200 MG TAB PO SCH ×3 (09:23→21:05)
[2018-03-23] MEDS: FUROSEMIDE 80 MG TAB PO SCH ×2 (09:23→17:03)
[2018-03-23] MEDS: hydrALAZINE HCL 50 MG TAB PO SCH ×3 (09:23→21:06)
[2018-03-23] MEDS: GABAPENTIN 100 MG CAP PO SCH ×3 (09:23→21:06)
[2018-03-23] MEDS: LOSARTAN 50 MG TAB PO SCH (09:26)
[2018-03-23] MEDS: PANTOPRAZOLE 40 MG TABLET PO SCH (09:27)
[2018-03-23] MEDS: TAMSULOSIN 0.4 MG CAP.ER.24H PO SCH (09:27)
[2018-03-23] MEDS: THIAMINE 100 MG/ML 2 ML VIAL IVP SCH (09:27)
--- NOTE | 2018-03-23 09:55 | P.PN ---
Subjective Patient is seen in follow-up for end-stage renal disease. He is maintained on hemodialysis on a Saturday schedule. Etiology is biopsy-proven diabetic kidney disease. Hemodynamically stable. Currently being treated for staph bacteremia. Patient underwent a tracheostomy. He remains unresponsive. No changes overnight. Vital signs are stable. General: The patient appeared well nourished and normally developed. HEENT: Head exam is unremarkable. Neck is without jugular venous distension. Tracheostomy noted. LUNGS: Lungs are clear to auscultation and percussion. Breath sounds decreased. HEART: Rate and Rhythm are regular. First and second heart sounds normal. No murmurs, rubs or gallops. ABDOMEN: Abdominal exam reveals normal bowel sounds. Non-tender and non- distended. No evidence of peritonitis. EXTREMITITES: No clubbing, cyanosis, or edema. Right below-knee amputation noted. Objective - Vital Signs Vital signs: Vital Signs Temp 97.9 F 03/23/18 05:00 Pulse 76 03/23/18 08:59 Resp 16 03/23/18 05:00 BP 141/73 03/23/18 05:00 Pulse Ox 98 03/23/18 05:00 Intake & Output 03/22/18 03/23/18 03/23/18 18:59 06:59 18:59 Intake Total 540 405 Output Total 125 Balance 540 280 Weight 72.5 kg Intake: Tube Feeding 540 405 Output: Urine 125 Uretheral (Delcid) 125 Other: Voiding Method Indwelling Catheter Indwelling Catheter # Bowel Movements 2 ABP, PAP, CO, CI - Last Documented Arterial Blood Pressure 135/56 - Labs CBC & Chem 7: 03/17/18 06:38 03/22/18 08:35 Labs: Abnormal Lab Results - Last 24 Hours (Table) 03/22/18 03/22/18 03/22/18 Range/Units 12:13 16:10 20:04 POC Glucose (mg/dL) 199 H 247 H 204 H (75-99) mg/dL 03/23/18 03/23/18 03/23/18 Range/Units 00:46 05:11 08:27 POC Glucose (mg/dL) 232 H 213 H 192 H (75-99) mg/dL Microbiology - Last 24 Hours (Table) 03/17/18 23:00 Blood Culture Gram Stain - Final Blood Blood Culture - Final Coagulase Negative Staph Coagulase Negative Staph#2 Assessment and Plan Plan: Assessment: 1. End-stage renal disease maintained on hemodialysis on a Saturday schedule via permacath. Etiology is biopsy proven diabetic kidney disease. 2. Volume overload. Improved with ultrafiltration. 3. Hypertension with chronic kidney disease. Controlled. 4. Staph bacteremia maintained on IV vancomycin. Vancomycin level 26.8 as of this morning. 5. Diabetes mellitus. 6. History of hepatitis C. 7. Reactive hepatitis B surface antigen. 7. Anemia of chronic kidney disease maintained on Aranesp. Iron deficiency noted. 8. Chronic kidney disease mineral bone disease. Phosphorus level 6.1 March 19 - above goal. Plan: Hemodialysis Saturday. Maintain current antihypertensives. Monitor vancomycin levels. Dose to be adjusted for renal function. I will hold off on IV iron due to bacteremia. Monitor phosphorus. Renvela cannot be given with tube feeds. I will hold off on PhosLo as his corrected calcium is near 10. Case management working on discharge planning. Overall prognosis guarded. Hospice should be considered.
[2018-03-23] MEDS: VALPROATE SODIUM 750 MG in SODIUM CHLORIDE 0.9% 50 ML IVPB SCH ×3 (09:57→23:15)
[2018-03-23 10:08] LABS: Calcium 9.1 mg/dL (8.4-10.2); Potassium 4.4 mmol/L (3.5-5.1)
[2018-03-23 12:20] LABS: Glucose,Whole Blood 236 mg/dL (75-99)
[2018-03-23] MEDS: DARBEPOETIN ALFA 60 MCG/0.3 ML SYRINGE SQ SCH (13:34)
--- NOTE | 2018-03-23 16:15 | P.PN ---
Subjective 67-year-old -[place] male who is being followed by the neurology service for possible seizure. Patient was brought to [facility] emergency room with shortness of breath. He was found to have significant pulmonary edema. Patient does have stage IV chronic kidney disease. Patient was being treated in the emergency room when one of the nurses noted patient to be unresponsive. Patient had questionable jerking activity. Patient had significant hypoglycemia in the 20s. He was given D50, intubated and sedated. Patient is currently in the ICU. Computed tomography scan of the brain was done which showed no acute abnormality. Computed tomography scan did show evidence of mild generalized atrophy. Patient was noted to have some rhythmic jerking. Patient was taken off propofol and had an EEG done. EEG showed generalized slowing of the background rhythm. EEG also showed significant triphasic waves which is commonly seen in hepatic pathology. Myoclonic activity was described. Patient was started on Depakote 500 mg every 12 hours IV. Staff reports no further jerking movements since starting Depakote. Patient remains sedated with propofol and on mechanical ventilation. acute kidney injury on chronic kidney disease. Patient has chronic kidney disease stage IV secondary to biopsy-proven diabetic kidney disease with severe chronicity. His baseline creatinine has been in the range of 4-5. Creatinine was 7.65 on admission 02/23/2018 this is my first day taking care of the pt , pt is still on vent , he has been off sedation , however he is still not waking up as expected . pt could have metabolic encephalopathy , vs other . pt with acute on chronic Kidney disease stage IV. nephrology are following the case .Creatinine was 7.65 on admission and is 5.99 today. pt is been seen by neurology who recommended to repeat the EEG and result is pending.pt had subtherapeutic level and extra doses were provided for him yesterday EEG from 02/21: abnormal with significant triphasic waves which is commonly seen in hepatic encephalopahty pt still does not respond to pain stimuli. despite been off sedation since this morning. pupils are equal and reactive to light, meningeal signs were absent when i examined the pt this morning pt has h/o Hep C and B , we will check ammonia level and other work up like B12 ,thyroid function test, syphlis screen ,repeat CT of the head ,with neurology follow up. no fever , no leukocytosis 02/24/2018 no change from yesterday in his mental status from the first time a saw her , still unresponsive , neurologist team is following the pt and recommended repeat EEG. critical care input is appreciated . ammonia level and TSH were negative , repeat CT head is negative for acute process as well 02/25/2018 Patient remains unresponsive as before. Repeat EEG showing moderate encephalopathy, significant triphasic waves consistent with hepatic disease. Occasional sharp wave consistent with due to seizure threshold. But no generalized epileptiform discharge. Patient is a plan to have trach placed on the surgical site. As well as dialysis catheter for dialysis. Patient has Delcid catheter with 40 mL in the bag. There is purulent discharge from the penis. Discussed with staff. Check culture for the discharge, change. AND CHECK BLADDER SCAN 02/26/2018 Patient remains unresponsive, the same. Patient had a dialysis catheter placed. Than his going for hemodialysis currently. Patient has been evaluated by loan service officer on their input is appreciated. Patient is planned for going for PEG and tracheostomy possibly tomorrow, as per family wishes. To call care consult is appreciated. He has positive sputum culture was fracture and staphylococcus. urine discharge so there was has been changed. Urine culture is pending. We'll consult infectious diseases specialist. Patient with mild leukocytosis 02/27/2018 No improvement in the patient mental status, he remains unresponsive and intubated. Went for dialysis yesterday and today. And PEG tube with check estimated are planned for the patient's in 1 or 2 days. Prognosis remains very poor. The sputum culture is growing Serratia and staph aureus. ID consult is appreciated and patient was started on cefepime. Also patient got IV vancomycin doses . Pulmonary/critical care input is appreciated. Hemoglobin at 7.1. No leukocytosis. He had fever yesterday at 100.2 02/28/2018 pt is unresponsive, intubated , he is undergoing hemodialysis , and he is on antibiotic , he is responding a little bit to suctioning his mouth but only minimally , prognosis remains poor and guarded. pt had PEG and treacheostomy, he remains on cefepime per ID recommendation . pt has Serratia marcescens and staph aureus. while his penile c/s showing many gr-ve bacilli (areobic and unaerobic) and gram positive cocci (unaerobic) 03/03/2018 Patient is unresponsive, has tracheostomy and PEG tube. His undergoing hemodialysis. He is on antibiotics for infection his respiratory and urinary systems. Patient is smoking a grimace to painful stimuli but no more more than that. Continue with supportive care. Prognosis remains very poor 03/04/2018 No change in mental status of the patient, he remains unresponsive. Status post tracheostomy and PEG tube insertion. Continue with hemo-dialysis. And nephrology team are following the patient Continue with antibiotic. Continue with valproate. Critical care/pulmonary team evaluation and follow-up is appreciated. He is off mechanical ventilation currently and continue with trach collar. Continue with Protonix for GI prophylaxis. Patient has some grimace to painful stimuli, however unresponsive to verbal or tactile stimuli. Neurological evaluation is recommended with some workup like EKG and CAT scan of the brain 03/15/2018 Patient remains unresponsive, and change from last time I saw the patient. Patient remains on antibiotic as per ID recommendation. Blood pressure medication and his blood pressure is now is currently better controlled .patient is currently on hemodialysis on Saturday, Saturday and Saturday schedule. Nephrology team are following the patient Prognosis remains poor 03-16-18 Patient remains unresponsive, nephrology follow us is appreciated, pt was started on Drabepoetin oral by nephrology team.patient remains on hemodialysis as scheduled. He has a tracheostomy on the oxygen and being fed via PEG tube. CBC and BMP looks stable compared to previous results Prognosis remains poor 03/17/2018 Patient remains unresponsive, nephrology follow us is appreciated, pt was started on Drabepoetin oral by nephrology team.patient remains on hemodialysis as scheduled. He has a tracheostomy on the oxygen and being fed via PEG tube. CBC and BMP looks stable compared to previous results Prognosis remains poor 03/18/2018 Patient remains unresponsive, nephrology follow us is appreciated, pt was started on Drabepoetin oral by nephrology team.patient remains on hemodialysis as scheduled. He has a tracheostomy on the oxygen and being fed via PEG tube. CBC and BMP looks stable compared to previous results. nephrology follow is appreciated ,pt is on lasix for fluid overload, check vancomycin level. Prognosis remains poor 03/19/2018 Patient remains unresponsive, nephrology follow us is appreciated, pt was started on Drabepoetin oral by nephrology team.patient remains on hemodialysis as scheduled. He has a tracheostomy on the oxygen and being fed via PEG tube. CBC and BMP looks stable compared to previous results. nephrology follow is appreciated ,pt is on lasix for fluid overload, Prognosis remains poor 03/20/2018 Patient remains unresponsive, nephrology follow us is appreciated, pt was started on Drabepoetin oral by nephrology team.patient remains on hemodialysis as scheduled. meciation adjustment by nephrology team is noted. He has a tracheostomy on the oxygen and being fed via PEG tube. CBC and BMP looks stable compared to previous results. ,pt is on lasix for fluid overload, Prognosis remains poor 03/21/2018 Patient remains unresponsive, nephrology follow us is appreciated, pt was started on Drabepoetin oral by nephrology team.patient remains on hemodialysis as scheduled. meciation adjustment by nephrology team is noted. He has a tracheostomy on the oxygen and being fed via PEG tube. CBC and BMP looks stable compared to previous results. ,pt is on lasix for fluid overload, Prognosis remains poor I called the [facility] @ [phone] and left a message with call back number to call me back to discuss the plan of care for the pt 03/22/18 pt remains on hemodialysis , unresponsive. i tired to page the guardian yesterday for plan of care as prognosis is very poor. response is still pending 03/23/2018 Patient does open eyes barely but remains bedbound no other significant response patient remains on 8 L of oxygen. Objective - Vital Signs Vital signs: Vital Signs Temp 98.0 F 03/23/18 12:30 Pulse 76 03/23/18 13:17 Resp 12 03/23/18 12:30 BP 123/69 03/23/18 12:30 Pulse Ox 99 03/23/18 12:30 Intake & Output 03/22/18 03/23/18 03/23/18 18:59 06:59 18:59 Intake Total 540 405 360 Output Total 125 Balance 540 280 360 Weight 72.5 kg Intake: Tube Feeding 540 405 360 Output: Urine 125 Uretheral (Delcid) 125 Other: Voiding Method Indwelling Catheter Indwelling Catheter Indwelling Catheter # Bowel Movements 2 ABP, PAP, CO, CI - Last Documented Arterial Blood Pressure 135/56 - Exam PHYSICAL EXAMINATION: GENERAL: She is barely responsive bedbound has a tracheostomy and 8 L of oxygen HEENT: Pupils are round and equally reacting to light. EOMI. No scleral icterus. No conjunctival pallor. Normocephalic, atraumatic. No pharyngeal erythema. No thyromegaly. CARDIOVASCULAR: S1 and S2 present. No murmurs, rubs, or gallops. PULMONARY: Chest is clear to auscultation, no wheezing or crackles. ABDOMEN: Soft, nontender, nondistended, normoactive bowel sounds. No palpable organomegaly. MUSCULOSKELETAL: No joint swelling or deformity. EXTREMITIES: No cyanosis, clubbing, does have bilateral lower extremity edema NEUROLOGICAL: As mentioned above but does open eyes to verbal stimuli SKIN: No rashes. - Labs CBC & Chem 7: 03/17/18 06:38 03/23/18 08:26 Labs: Abnormal Lab Results - Last 24 Hours (Table) 03/22/18 03/22/18 03/23/18 Range/Units 16:10 20:04 00:46 BUN (9-20) mg/dL Creatinine (0.66-1.25) mg/dL Glucose (74-99) mg/dL POC Glucose (mg/dL) 247 H 204 H 232 H (75-99) mg/dL 03/23/18 03/23/18 03/23/18 Range/Units 05:11 08:26 08:27 BUN 95 H (9-20) mg/dL Creatinine 4.79 H (0.66-1.25) mg/dL Glucose 200 H (74-99) mg/dL POC Glucose (mg/dL) 213 H 192 H (75-99) mg/dL 03/23/18 Range/Units 12:19 BUN (9-20) mg/dL Creatinine (0.66-1.25) mg/dL Glucose (74-99) mg/dL POC Glucose (mg/dL) 236 H (75-99) mg/dL Microbiology - Last 24 Hours (Table) 03/17/18 23:00 Blood Culture Gram Stain - Final Blood Blood Culture - Final Coagulase Negative Staph Coagulase Negative Staph#2 Assessment and Plan Plan: Assessment and Plan Plan: -Acute hypoxic respiratory failure: Secondary to congestive heart failure chronic diastolic dysfunction with acute exacerbation patient , patient is off ventilator presently and 8 L of oxygen, now hemodialysis dependent -possible seizure versus metabolic encephalopathy related to low glu , neurology following the patient no recent seizures -acute on chronic renal failure patient is on hemodialysis no significant improvement in his overall clinical status. -metabolic encephalopathy , possibly secondary to all above -Sepsis with possible tracheobronchitis, positive sputum culture. 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 Hyperlipidemia -Episode of seizure believed to be secondary to hypoglycemia and encephalopathy EEG showed diffuse slowing. patient has metabolic and toxic encephalopathy Patient overall prognosis is extremely poor no significant improvement in spite of aggressive treatment his quality of life is extremely poor my suspicion is extremely low that the patient will ever get out of bed and will be reasonably awake. We'll discuss with the public guardian regarding his overall goals of care.
[2018-03-23 16:36] LABS: Glucose,Whole Blood 223 mg/dL (75-99)
[2018-03-23 20:10] LABS: Glucose,Whole Blood 193 mg/dL (75-99)
[2018-03-23] MEDS: ATORVASTATIN 10 MG TAB PO SCH (21:06)
[2018-03-23] MEDS: ACETAMINOPHEN TAB 325 MG TAB PO PRN (21:09)
[2018-03-23 23:56] LABS: Glucose,Whole Blood 209 mg/dL (75-99)
--- NOTE | 2018-03-23 23:57 | PN ---
PROGRESS NOTE DATE OF SERVICE: 03/23/2018. REASON FOR FOLLOWUP: Positive blood culture and a fever. INTERVAL HISTORY: The patient he is currently afebrile. He is breathing comfortably on trach collar. Hemodynamically stable. Not on any pressor support. Tolerating his tube feeds. No diarrhea per the nursing staff. EXAMINATION: Blood pressure 114/64 with a pulse of 73, temperature 9.3. He is 98% on trach collar. GENERAL DESCRIPTION: An elderly male lying in bed in no distress. RESPIRATORY: Unlabored breathing with decreased breath sounds in the bases. No wheeze. HEART: S1 and S2. Regular rate and rhythm. ABDOMEN: Soft. LABS: BUN of 95, creatinine 4.71. DIAGNOSTIC IMPRESSION AND PLAN: Patient with low grade fever. Possible coagulase negative . The patient has a right [id number]. At this time the patient is on vancomycin. Will continue while watching his level closely. However in view of overall prognosis, hospice may be a better option and apparently the primary team is working on it. Continue supportive care. MMODL / IJN: [id number] /
[2018-03-24] MEDS: INSULIN ASPART 100 UNIT/ML 1 ML 10 ML VIAL SQ SCH ×7 (00:13→23:53)
[2018-03-24 04:43] LABS: Glucose,Whole Blood 201 mg/dL (75-99)
[2018-03-24] MEDS: IPRATROPIUM-ALBUTEROL 3 ML NEB INHALATION SCH ×4 (07:10→19:55)
[2018-03-24 08:07] LABS: Glucose,Whole Blood 197 mg/dL (75-99)
[2018-03-24] MEDS: HEPARIN SODIUM,PORCINE 5,000 UNIT/ML 1 ML VIAL SQ SCH ×3 (09:14→23:53)
[2018-03-24] MEDS: amLODIPine 10 MG TAB PO SCH (09:15)
[2018-03-24] MEDS: cloNIDine HCL 0.1 MG TAB PO SCH ×3 (09:15→22:09)
[2018-03-24] MEDS: CHLORHEXIDINE GLUCONATE 15 ML CUP MUCOUS MEM SCH ×2 (09:15→22:09)
[2018-03-24] MEDS: FUROSEMIDE 80 MG TAB PO SCH ×2 (09:16→16:17)
[2018-03-24] MEDS: GABAPENTIN 100 MG CAP PO SCH ×3 (09:16→22:10)
[2018-03-24] MEDS: LABETALOL 200 MG TAB PO SCH ×3 (09:17→22:09)
[2018-03-24] MEDS: LOSARTAN 50 MG TAB PO SCH (09:17)
[2018-03-24] MEDS: hydrALAZINE HCL 50 MG TAB PO SCH ×3 (09:17→22:10)
[2018-03-24] MEDS: TAMSULOSIN 0.4 MG CAP.ER.24H PO SCH (09:18)
[2018-03-24] MEDS: PANTOPRAZOLE 40 MG TABLET PO SCH (09:18)
[2018-03-24] MEDS: VALPROATE SODIUM 750 MG in SODIUM CHLORIDE 0.9% 50 ML IVPB SCH ×3 (09:19→22:13)
[2018-03-24] MEDS: THIAMINE 100 MG/ML 2 ML VIAL IVP SCH (09:19)
--- NOTE | 2018-03-24 09:21 | P.PN ---
Subjective Patient is seen in follow-up for end-stage renal disease. He is maintained on hemodialysis on a Saturday schedule. Etiology is biopsy-proven diabetic kidney disease. Hemodynamically stable. Currently being treated for staph bacteremia. Patient underwent a tracheostomy. He remains unresponsive. No changes overnight. Awaits placement. Vital signs are stable. General: The patient appeared well nourished and normally developed. HEENT: Head exam is unremarkable. Neck is without jugular venous distension. Tracheostomy noted. LUNGS: Lungs are clear to auscultation and percussion. Breath sounds decreased. HEART: Rate and Rhythm are regular. First and second heart sounds normal. No murmurs, rubs or gallops. ABDOMEN: Abdominal exam reveals normal bowel sounds. Non-tender and non- distended. No evidence of peritonitis. EXTREMITITES: No clubbing, cyanosis, or edema. Right below-knee amputation noted. Objective - Vital Signs Vital signs: Vital Signs Temp 98.9 F 03/24/18 05:00 Pulse 72 03/24/18 07:23 Resp 19 03/24/18 05:00 BP 131/70 03/24/18 05:00 Pulse Ox 98 03/24/18 05:00 Intake & Output 03/23/18 03/24/18 03/24/18 18:59 06:59 18:59 Intake Total 540 590 Balance 540 590 Weight 67.5 kg Intake: Intake, IV Titration 50 Amount Valproate Sodium 750 mg 50 In Sodium Chloride 0.9% 50 ml @ 50 mls/hr IVPB TID [facility] Rx#:[id number] Tube Feeding 540 540 Other: Voiding Method Indwelling Catheter Indwelling Catheter # Bowel Movements 1 1 ABP, PAP, CO, CI - Last Documented Arterial Blood Pressure 135/56 - Labs CBC & Chem 7: 03/17/18 06:38 03/23/18 08:26 Labs: Abnormal Lab Results - Last 24 Hours (Table) 03/23/18 03/23/18 03/23/18 Range/Units 08:26 12:19 16:34 BUN 95 H (9-20) mg/dL Creatinine 4.79 H (0.66-1.25) mg/dL Glucose 200 H (74-99) mg/dL POC Glucose (mg/dL) 236 H 223 H (75-99) mg/dL 10/03/23/18 03/24/18 Range/Units 20:07 23:55 04:23 BUN (9-20) mg/dL Creatinine (0.66-1.25) mg/dL Glucose (74-99) mg/dL POC Glucose (mg/dL) 193 H 209 H 201 H (75-99) mg/dL 03/24/18 Range/Units 07:56 BUN (9-20) mg/dL Creatinine (0.66-1.25) mg/dL Glucose (74-99) mg/dL POC Glucose (mg/dL) 197 H (75-99) mg/dL Microbiology - Last 24 Hours (Table) 03/17/18 23:00 Blood Culture Gram Stain - Final Blood Blood Culture - Final Coagulase Negative Staph Coagulase Negative Staph#2 Assessment and Plan Plan: Assessment: 1. End-stage renal disease maintained on hemodialysis on a Saturday schedule via permacath. Etiology is biopsy proven diabetic kidney disease. 2. Volume overload. Improved with ultrafiltration. 3. Hypertension with chronic kidney disease. Controlled. 4. Staph bacteremia maintained on IV vancomycin. Vancomycin level 26.8 as of this morning. 5. Diabetes mellitus. 6. History of hepatitis C. 7. Reactive hepatitis B surface antigen. 7. Anemia of chronic kidney disease maintained on Aranesp. Iron deficiency noted. 8. Chronic kidney disease mineral bone disease. Phosphorus level 6.1 March 19 - above goal. Plan: Hemodialysis today. Maintain current antihypertensives. Monitor vancomycin levels. Dose to be adjusted for renal function. I will hold off on IV iron due to bacteremia. Monitor phosphorus. Renvela cannot be given with tube feeds. I will hold off on PhosLo as his corrected calcium is near 10. Case management working on discharge planning. Overall prognosis guarded. Hospice should be considered.
[2018-03-24] MEDS: DOCUSATE ORAL SOLN 100 MG/10 ML CUP PO SCH (09:38)
[2018-03-24 09:51] LABS: Calcium 9.4 mg/dL (8.4-10.2)
[2018-03-24 09:56] LABS: Vancomycin,Random 28.2 ug/mL
[2018-03-24 10:23] LABS: Potassium 4.5 mmol/L (3.5-5.1)
[2018-03-24 11:10] VITALS: BMI 20.2
[2018-03-24 12:25] LABS: Glucose,Whole Blood 242 mg/dL (75-99)
--- NOTE | 2018-03-24 13:26 | P.DS ---
Providers Date of admission: 02/20/18 02:14 Attending physician: Jillian Beyer Consults: 02/20/18 02:11 Consult Physician Urgent Consulting Provider: Jay Ramirez Consult Reason/Comments: ESRD, Fluid overload, Dialysis Do you want consulting provider notified?: Yes 02/20/18 04:04 Consult Physician Urgent Consulting Provider: Shine Monk Consult Reason/Comments: Unresponsive Do you want consulting provider notified?: Already Contacted 02/20/18 12:38 Consult Physician Routine Consulting Provider: Joel Metcalf Consult Reason/Comments: Possible seizure Do you want consulting provider notified?: Yes 02/25/18 10:04 Consult Physician Stat Consulting Provider: Ja Hobbs Consult Reason/Comments: trach and peg Do you want consulting provider notified?: Already Contacted 02/26/18 09:13 Consult Physician Urgent Consulting Provider: Beny Suazo Consult Reason/Comments: catheter Do you want consulting provider notified?: Yes 02/26/18 12:29 Consult Physician Urgent Consulting Provider: Marge Qiu Consult Reason/Comments: positive culture in sputum ,pending urine culture with abn discharge Do you want consulting provider notified?: Yes Primary care physician: [facility] Course: Progress note and discharge summary 67-year-old -[place] male who is being followed by the neurology service for possible seizure. Patient was brought to [facility] emergency room with shortness of breath. He was found to have significant pulmonary edema. Patient does have stage IV chronic kidney disease. Patient was being treated in the emergency room when one of the nurses noted patient to be unresponsive. Patient had questionable jerking activity. Patient had significant hypoglycemia in the 20s. He was given D50, intubated and sedated. Patient is currently in the ICU. Computed tomography scan of the brain was done which showed no acute abnormality. Computed tomography scan did show evidence of mild generalized atrophy. Patient was noted to have some rhythmic jerking. Patient was taken off propofol and had an EEG done. EEG showed generalized slowing of the background rhythm. EEG also showed significant triphasic waves which is commonly seen in hepatic pathology. Myoclonic activity was described. Patient was started on Depakote 500 mg every 12 hours IV. Staff reports no further jerking movements since starting Depakote. Patient remains sedated with propofol and on mechanical ventilation. acute kidney injury on chronic kidney disease. Patient has chronic kidney disease stage IV secondary to biopsy-proven diabetic kidney disease with severe chronicity. His baseline creatinine has been in the range of 4-5. Creatinine was 7.65 on admission 02/23/2018 this is my first day taking care of the pt , pt is still on vent , he has been off sedation , however he is still not waking up as expected . pt could have metabolic encephalopathy , vs other . pt with acute on chronic Kidney disease stage IV. nephrology are following the case .Creatinine was 7.65 on admission and is 5.99 today. pt is been seen by neurology who recommended to repeat the EEG and result is pending.pt had subtherapeutic level and extra doses were provided for him yesterday EEG from 02/21: abnormal with significant triphasic waves which is commonly seen in hepatic encephalopahty pt still does not respond to pain stimuli. despite been off sedation since this morning. pupils are equal and reactive to light, meningeal signs were absent when i examined the pt this morning pt has h/o Hep C and B , we will check ammonia level and other work up like B12 ,thyroid function test, syphlis screen ,repeat CT of the head ,with neurology follow up. no fever , no leukocytosis 02/24/2018 no change from yesterday in his mental status from the first time a saw her , still unresponsive , neurologist team is following the pt and recommended repeat EEG. critical care input is appreciated . ammonia level and TSH were negative , repeat CT head is negative for acute process as well 02/25/2018 Patient remains unresponsive as before. Repeat EEG showing moderate encephalopathy, significant triphasic waves consistent with hepatic disease. Occasional sharp wave consistent with due to seizure threshold. But no generalized epileptiform discharge. Patient is a plan to have trach placed on the surgical site. As well as dialysis catheter for dialysis. Patient has Delcid catheter with 40 mL in the bag. There is purulent discharge from the penis. Discussed with staff. Check culture for the discharge, change. AND CHECK BLADDER SCAN 02/26/2018 Patient remains unresponsive, the same. Patient had a dialysis catheter placed. Than his going for hemodialysis currently. Patient has been evaluated by [employer] principal on their input is appreciated. Patient is planned for going for PEG and tracheostomy possibly tomorrow, as per family wishes. To call care consult is appreciated. He has positive sputum culture was fracture and staphylococcus. urine discharge so there was has been changed. Urine culture is pending. We'll consult infectious diseases specialist. Patient with mild leukocytosis 02/27/2018 No improvement in the patient mental status, he remains unresponsive and intubated. Went for dialysis yesterday and today. And PEG tube with check estimated are planned for the patient's in 1 or 2 days. Prognosis remains very poor. The sputum culture is growing Serratia and staph aureus. ID consult is appreciated and patient was started on cefepime. Also patient got IV vancomycin doses . Pulmonary/critical care input is appreciated. Hemoglobin at 7.1. No leukocytosis. He had fever yesterday at 100.2 02/28/2018 pt is unresponsive, intubated , he is undergoing hemodialysis , and he is on antibiotic , he is responding a little bit to suctioning his mouth but only minimally , prognosis remains poor and guarded. pt had PEG and treacheostomy, he remains on cefepime per ID recommendation . pt has Serratia marcescens and staph aureus. while his penile c/s showing many gr-ve bacilli (areobic and unaerobic) and gram positive cocci (unaerobic) 03/03/2018 Patient is unresponsive, has tracheostomy and PEG tube. His undergoing hemodialysis. He is on antibiotics for infection his respiratory and urinary systems. Patient is smoking a grimace to painful stimuli but no more more than that. Continue with supportive care. Prognosis remains very poor 03/04/2018 No change in mental status of the patient, he remains unresponsive. Status post tracheostomy and PEG tube insertion. Continue with hemo-dialysis. And nephrology team are following the patient Continue with antibiotic. Continue with valproate. Critical care/pulmonary team evaluation and follow-up is appreciated. He is off mechanical ventilation currently and continue with trach collar. Continue with Protonix for GI prophylaxis. Patient has some grimace to painful stimuli, however unresponsive to verbal or tactile stimuli. Neurological evaluation is recommended with some workup like EKG and CAT scan of the brain 03/15/2018 Patient remains unresponsive, and change from last time I saw the patient. Patient remains on antibiotic as per ID recommendation. Blood pressure medication and his blood pressure is now is currently better controlled .patient is currently on hemodialysis on Saturday, Saturday and Saturday schedule. Nephrology team are following the patient Prognosis remains poor 03-16-18 Patient remains unresponsive, nephrology follow us is appreciated, pt was started on Drabepoetin oral by nephrology team.patient remains on hemodialysis as scheduled. He has a tracheostomy on the oxygen and being fed via PEG tube. CBC and BMP looks stable compared to previous results Prognosis remains poor 03/17/2018 Patient remains unresponsive, nephrology follow us is appreciated, pt was started on Drabepoetin oral by nephrology team.patient remains on hemodialysis as scheduled. He has a tracheostomy on the oxygen and being fed via PEG tube. CBC and BMP looks stable compared to previous results Prognosis remains poor 03/18/2018 Patient remains unresponsive, nephrology follow us is appreciated, pt was started on Drabepoetin oral by nephrology team.patient remains on hemodialysis as scheduled. He has a tracheostomy on the oxygen and being fed via PEG tube. CBC and BMP looks stable compared to previous results. nephrology follow is appreciated ,pt is on lasix for fluid overload, check vancomycin level. Prognosis remains poor 03/19/2018 Patient remains unresponsive, nephrology follow us is appreciated, pt was started on Drabepoetin oral by nephrology team.patient remains on hemodialysis as scheduled. He has a tracheostomy on the oxygen and being fed via PEG tube. CBC and BMP looks stable compared to previous results. nephrology follow is appreciated ,pt is on lasix for fluid overload, Prognosis remains poor 03/20/2018 Patient remains unresponsive, nephrology follow us is appreciated, pt was started on Drabepoetin oral by nephrology team.patient remains on hemodialysis as scheduled. meciation adjustment by nephrology team is noted. He has a tracheostomy on the oxygen and being fed via PEG tube. CBC and BMP looks stable compared to previous results. ,pt is on lasix for fluid overload, Prognosis remains poor 03/21/2018 Patient remains unresponsive, nephrology follow us is appreciated, pt was started on Drabepoetin oral by nephrology team.patient remains on hemodialysis as scheduled. meciation adjustment by nephrology team is noted. He has a tracheostomy on the oxygen and being fed via PEG tube. CBC and BMP looks stable compared to previous results. ,pt is on lasix for fluid overload, Prognosis remains poor I called the office of [facility] @ [phone] and left a message with call back number to call me back to discuss the plan of care for the pt 03/22/18 pt remains on hemodialysis , unresponsive. i tired to page the guardian yesterday for plan of care as prognosis is very poor. response is still pending 03/23/2018 Patient does open eyes barely but remains bedbound no other significant response patient remains on 8 L of oxygen. 03/24/2018 No significant change in his clinical status. Discussed with the public guardian who is agreeable with hospice and patient will be evaluated by [facility] as requested by the public guardian. If possible patient will be discharged to hospice facility PHYSICAL EXAMINATION: GENERAL: She is barely responsive bedbound has a tracheostomy and 8 L of oxygen HEENT: Pupils are round and equally reacting to light. EOMI. No scleral icterus. No conjunctival pallor. Normocephalic, atraumatic. No pharyngeal erythema. No thyromegaly. CARDIOVASCULAR: S1 and S2 present. No murmurs, rubs, or gallops. PULMONARY: Chest is clear to auscultation, no wheezing or crackles. ABDOMEN: Soft, nontender, nondistended, normoactive bowel sounds. No palpable organomegaly. MUSCULOSKELETAL: No joint swelling or deformity. EXTREMITIES: No cyanosis, clubbing, does have bilateral lower extremity edema NEUROLOGICAL: As mentioned above but does open eyes to verbal stimuli SKIN: No rashes. Assessment and Plan Plan: -Acute hypoxic respiratory failure: Secondary to congestive heart failure chronic diastolic dysfunction with acute exacerbation patient , patient is off ventilator presently and 8 L of oxygen, now hemodialysis dependent -possible seizure versus metabolic encephalopathy related to low glucose , neurology following the patient no recent seizures -acute on chronic renal failure patient is on hemodialysis no significant improvement in his overall clinical status. -metabolic encephalopathy , possibly secondary to all above -Sepsis with possible tracheobronchitis, positive sputum culture. 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 patient has metabolic and toxic encephalopathy Patient's prognosis is extremely poor his Karnofsky score is extremely low. Patient did not have any significant improvement in spite of aggressive therapy patient barely opens his eyes with verbal stimuli and bedbound he was dialysis dependent. His quality of life is extremely poor. The most appropriate care for him as hospice at this time. Patient Condition at Discharge: Critical Plan - Discharge Summary Discharge Rx Participant: No New Discharge Prescriptions: Continue cloNIDine HCL [Catapres] 0.2 mg PO Q8HR #90 tab hydrALAZINE HCL [Apresoline] 100 mg PO Q8H #90 tab Discontinued Gabapentin 800 mg PO TID #90 tab Simvastatin [Zocor] 20 mg PO HS #30 tab Tamsulosin [Flomax] 0.4 mg PO DAILY #30 cap Insulin Glulisine [Apidra Solostar] 8 - 10 unit SQ AC-TID amLODIPine [Norvasc] 5 mg PO BID #60 tab Calcium Acetate [PhosLo] 667 mg PO TID-W/MEALS #90 cap Labetalol [Trandate] 400 mg PO Q8HR #90 tab Sodium Bicarbonate Tab 650 mg PO DAILY #30 tab Insulin Glargine [Lantus] 20 unit SQ HS #0 Discharge Medication List cloNIDine HCL [Catapres] 0.2 mg PO Q8HR #90 tab 02/14/18 [Rx] hydrALAZINE HCL [Apresoline] 100 mg PO Q8H #90 tab 02/14/18 [Rx] Follow up Appointment(s)/Referral(s): Merrick Mcclelland MD [STAFF PHYSICIAN] - 1-2 days Discharge Disposition: DISCH TO HOSPICE MED FACILTY
[2018-03-24 16:28] LABS: Glucose,Whole Blood 142 mg/dL (75-99)
--- NOTE | 2018-03-24 17:13 | PN ---
PROGRESS NOTE DATE OF SERVICE: 03/24/2018. REASON FOR FOLLOWUP: Positive blood culture with Staph epi and low-grade fever. INTERVAL HISTORY: The patient still has a running low-grade fever of 99.7. He is hemodynamically stable. He is breathing comfortable, tolerating his tube feeds. No diarrhea being reported by the nursing staff. The patient remains to be unresponsive with no communication. EXAMINATION: Blood pressure 123/55 with a pulse of 77, temperature 99.7. He is currently 98% on trach collar. General description is an elderly male lying in bed in no distress. Respiratory system: Unlabored breathing with decreased breath sounds in the bases. No wheezes. Heart S1, S2. Regular rate and rhythm. Abdomen soft, no tenderness. LABS: BUN is 122, creatinine 5.28. Vancomycin trough random was 28.2. DIAGNOSTIC IMPRESSION AND PLAN: Patient with low-grade fever with a positive blood culture with Staph epi. The patient did have a dialysis catheter. In view of overall patient poor prognosis, recommend discontinuation of antibiotic and possible hospice oriented care. Continue supportive care. MMODL / IJN: [id number] /
[2018-03-24 19:47] LABS: Glucose,Whole Blood 153 mg/dL (75-99)
[2018-03-24] MEDS: ATORVASTATIN 10 MG TAB PO SCH (22:09)
[2018-03-24 23:59] LABS: Glucose,Whole Blood 198 mg/dL (75-99)
[2018-03-25] MEDS: INSULIN ASPART 100 UNIT/ML 1 ML 10 ML VIAL SQ SCH ×4 (04:03→18:01)
[2018-03-25] MEDS: ACETAMINOPHEN TAB 325 MG TAB PO PRN (04:10)
[2018-03-25 04:22] LABS: Glucose,Whole Blood 207 mg/dL (75-99)
[2018-03-25] MEDS: IPRATROPIUM-ALBUTEROL 3 ML NEB INHALATION SCH ×3 (08:05→15:42)
[2018-03-25] MEDS: CHLORHEXIDINE GLUCONATE 15 ML CUP MUCOUS MEM SCH (08:06)
[2018-03-25] MEDS: THIAMINE 100 MG/ML 2 ML VIAL IVP SCH (08:06)
[2018-03-25] MEDS: cloNIDine HCL 0.1 MG TAB PO SCH ×2 (08:06→18:00)
[2018-03-25] MEDS: FUROSEMIDE 80 MG TAB PO SCH ×2 (08:06→18:00)
[2018-03-25] MEDS: TAMSULOSIN 0.4 MG CAP.ER.24H PO SCH (08:06)
[2018-03-25] MEDS: hydrALAZINE HCL 50 MG TAB PO SCH ×2 (08:06→18:00)
[2018-03-25] MEDS: PANTOPRAZOLE 40 MG TABLET PO SCH (08:06)
[2018-03-25] MEDS: amLODIPine 10 MG TAB PO SCH (08:06)
[2018-03-25] MEDS: HEPARIN SODIUM,PORCINE 5,000 UNIT/ML 1 ML VIAL SQ SCH ×2 (08:06→18:01)
[2018-03-25] MEDS: GABAPENTIN 100 MG CAP PO SCH ×2 (08:06→18:00)
[2018-03-25] MEDS: LABETALOL 200 MG TAB PO SCH ×2 (08:06→18:00)
[2018-03-25] MEDS: DOCUSATE ORAL SOLN 100 MG/10 ML CUP PO SCH (08:06)
[2018-03-25] MEDS: LOSARTAN 50 MG TAB PO SCH (08:06)
[2018-03-25] MEDS: VALPROATE SODIUM 750 MG in SODIUM CHLORIDE 0.9% 50 ML IVPB SCH ×2 (08:07→18:03)
[2018-03-25 08:16] LABS: Glucose,Whole Blood 196 mg/dL (75-99)
--- NOTE | 2018-03-25 10:09 | P.PN ---
Subjective Patient is seen in follow-up for end-stage renal disease. He is maintained on hemodialysis on a Saturday schedule. Etiology is biopsy-proven diabetic kidney disease. Hemodynamically stable. Currently being treated for staph bacteremia. Patient underwent a tracheostomy. He remains unresponsive. No changes overnight. Awaits placement. Vital signs are stable. General: The patient appeared well nourished and normally developed. HEENT: Head exam is unremarkable. Neck is without jugular venous distension. Tracheostomy noted. LUNGS: Lungs are clear to auscultation and percussion. Breath sounds decreased. HEART: Rate and Rhythm are regular. First and second heart sounds normal. No murmurs, rubs or gallops. ABDOMEN: Abdominal exam reveals normal bowel sounds. Non-tender and non- distended. No evidence of peritonitis. EXTREMITITES: No clubbing, cyanosis, or edema. Right below-knee amputation noted. Objective - Vital Signs Vital signs: Vital Signs Temp 100.1 F H 03/25/18 05:24 Pulse 80 03/25/18 08:17 Resp 16 03/25/18 04:16 BP 152/76 03/25/18 04:16 Pulse Ox 99 03/25/18 04:16 Intake & Output 03/24/18 03/25/18 03/25/18 18:59 06:59 18:59 Intake Total 590 540 Output Total 300 Balance 590 240 Weight 67.5 kg 66.5 kg Intake: Intake, IV Titration 50 Amount Valproate Sodium 750 mg 50 In Sodium Chloride 0.9% 50 ml @ 50 mls/hr IVPB TID [facility] Rx#:[id number] Tube Feeding 540 540 Output: Urine 300 Uretheral (Delcid) 300 Other: Voiding Method Indwelling Catheter Indwelling Catheter # Voids 0 ABP, PAP, CO, CI - Last Documented Arterial Blood Pressure 135/56 - Labs CBC & Chem 7: 03/17/18 06:38 03/24/18 07:38 Labs: Abnormal Lab Results - Last 24 Hours (Table) 03/24/18 03/24/18 03/24/18 Range/Units 07:38 12:24 16:26 BUN 122 H* (9-20) mg/dL Creatinine 5.28 H (0.66-1.25) mg/dL Glucose 196 H (74-99) mg/dL POC Glucose (mg/dL) 242 H 142 H (75-99) mg/dL 03/24/18 03/24/18 03/25/18 Range/Units 19:35 23:50 04:01 BUN (9-20) mg/dL Creatinine (0.66-1.25) mg/dL Glucose (74-99) mg/dL POC Glucose (mg/dL) 153 H 198 H 207 H (75-99) mg/dL 03/25/18 Range/Units 08:15 BUN (9-20) mg/dL Creatinine (0.66-1.25) mg/dL Glucose (74-99) mg/dL POC Glucose (mg/dL) 196 H (75-99) mg/dL Assessment and Plan Plan: Assessment: 1. End-stage renal disease maintained on hemodialysis on a Saturday schedule via permacath. Etiology is biopsy proven diabetic kidney disease. 2. Volume overload. Improved with ultrafiltration. 3. Hypertension with chronic kidney disease. Controlled. 4. Staph bacteremia maintained on IV vancomycin. Vancomycin level 26.8 as of this morning. 5. Diabetes mellitus. 6. History of hepatitis C. 7. Reactive hepatitis B surface antigen. 7. Anemia of chronic kidney disease maintained on Aranesp. Iron deficiency noted. 8. Chronic kidney disease mineral bone disease. Phosphorus level 6.1 March 19 - above goal. Plan: Hemodialysis tomorrow. Maintain current antihypertensives. Monitor vancomycin levels. Dose to be adjusted for renal function. I will hold off on IV iron due to bacteremia. Monitor phosphorus. Renvela cannot be given with tube feeds. I will hold off on PhosLo as his corrected calcium is near 10. Case management working on discharge planning. Overall prognosis guarded. Hospice being considered.
[2018-03-25 10:52] LABS: Calcium 8.7 mg/dL (8.4-10.2); Potassium 4.1 mmol/L (3.5-5.1)
[2018-03-25 10:58] LABS: Vancomycin,Random 20.8 ug/mL
[2018-03-25 11:09] LABS: Glucose,Whole Blood 220 mg/dL (75-99)
--- NOTE | 2018-03-25 13:17 | P.DS ---
Providers Date of admission: 02/20/18 02:14 Attending physician: Jillian Beyer Consults: 02/20/18 02:11 Consult Physician Urgent Consulting Provider: Jay Ramirze Consult Reason/Comments: ESRD, Fluid overload, Dialysis Do you want consulting provider notified?: Yes 02/20/18 04:04 Consult Physician Urgent Consulting Provider: Shine Monk Consult Reason/Comments: Unresponsive Do you want consulting provider notified?: Already Contacted 02/20/18 12:38 Consult Physician Routine Consulting Provider: Joel Metcalf Consult Reason/Comments: Possible seizure Do you want consulting provider notified?: Yes 02/25/18 10:04 Consult Physician Stat Consulting Provider: Ja Hobbs Consult Reason/Comments: trach and peg Do you want consulting provider notified?: Already Contacted 02/26/18 09:13 Consult Physician Urgent Consulting Provider: Beny uSazo Consult Reason/Comments: catheter Do you want consulting provider notified?: Yes 02/26/18 12:29 Consult Physician Urgent Consulting Provider: Marge Qiu Consult Reason/Comments: positive culture in sputum ,pending urine culture with abn discharge Do you want consulting provider notified?: Yes Primary care physician: [facility] Course: Patient is being discharged to [facility] today. For further details please refer to my dictation of discharge summary from yesterday PHYSICAL EXAMINATION: GENERAL: She is barely responsive bedbound has a tracheostomy and 8 L of oxygen HEENT: Pupils are round and equally reacting to light. EOMI. No scleral icterus. No conjunctival pallor. Normocephalic, atraumatic. No pharyngeal erythema. No thyromegaly. CARDIOVASCULAR: S1 and S2 present. No murmurs, rubs, or gallops. PULMONARY: Chest is clear to auscultation, no wheezing or crackles. ABDOMEN: Soft, nontender, nondistended, normoactive bowel sounds. No palpable organomegaly. MUSCULOSKELETAL: No joint swelling or deformity. EXTREMITIES: No cyanosis, clubbing, does have bilateral lower extremity edema NEUROLOGICAL: As mentioned above but does open eyes to verbal stimuli SKIN: No rashes. Patient Condition at Discharge: Critical Plan - Discharge Summary Discharge Rx Participant: No New Discharge Prescriptions: Continue cloNIDine HCL [Catapres] 0.2 mg PO Q8HR #90 tab hydrALAZINE HCL [Apresoline] 100 mg PO Q8H #90 tab Discontinued Gabapentin 800 mg PO TID #90 tab Simvastatin [Zocor] 20 mg PO HS #30 tab Tamsulosin [Flomax] 0.4 mg PO DAILY #30 cap Insulin Glulisine [Apidra Solostar] 8 - 10 unit SQ AC-TID amLODIPine [Norvasc] 5 mg PO BID #60 tab Calcium Acetate [PhosLo] 667 mg PO TID-W/MEALS #90 cap Labetalol [Trandate] 400 mg PO Q8HR #90 tab Sodium Bicarbonate Tab 650 mg PO DAILY #30 tab Insulin Glargine [Lantus] 20 unit SQ HS #0 Discharge Medication List cloNIDine HCL [Catapres] 0.2 mg PO Q8HR #90 tab 02/14/18 [Rx] hydrALAZINE HCL [Apresoline] 100 mg PO Q8H #90 tab 02/14/18 [Rx] Follow up Appointment(s)/Referral(s): Merrick Mcclelland MD [STAFF PHYSICIAN] - 1-2 days Discharge Disposition: DISCH TO HOSPICE MED [facility]
--- NOTE | 2018-03-25 14:58 | PN ---
PROGRESS NOTE DATE OF SERVICE: 03/25/2018 REASON FOR FOLLOWUP: Fever and Staph epi bacteremia. INTERVAL HISTORY: The patient still did have a low-grade fever of 100.6 this morning, though no temperature has been taken afterwards. The patient remains to be unresponsive. Currently on trach collar, hemodynamically stable, tolerating his tube feeds, no diarrhea per the nursing staff. PHYSICAL EXAMINATION: Blood pressure 150/76, pulse of 79, temperature of 100.8, T-max of 101.6. He is 99% on trach collar. General description is an elderly male lying in bed, in no distress. RESPIRATORY SYSTEM: Unlabored breathing, decreased breath sounds, no wheeze. HEART: S1, S2. Regular rate and rhythm. ABDOMEN: Soft, no tenderness. LABS: BUN of 22, creatinine 0.80. DIAGNOSTIC IMPRESSION AND PLAN: Patient with a low-grade fever in a patient noted to have a positive blood culture with Staph epi. The patient is currently covered with vancomycin; however, in view of overall poor prognosis, may be considered for hospice or related care and antibiotic can be safely discontinued. Continue supportive care. MMODL / IJN: [id number] /
[2018-03-25 16:08] VITALS: BP 130/72; PULSE 73; RESP 20; TEMP 97.7
[2018-03-25 16:15] LABS: Glucose,Whole Blood 236 mg/dL (75-99)
[2018-03-26] MEDS ORDERED: VANCOMYCIN 1,250 MG in SODIUM CHLORIDE 0.9% 250 ML IVPB ONE (06:00)
== END 2018-03-25 18:55 | disposition hospice, inpatient (51) | DRG 4 ==
LOC: EC 23:06 → 6SEL 02-20 02:14 → EEVIPCON 02-20 02:14 → 6ICU 02-20 02:35 → 5MS5E 03-06 17:05 → 3NMEDONC 03-16 12:23
PROVIDERS: ADMIT Hospitalist; ATTEND Hospitalist
PROC: 5A1955Z Respiratory Ventilation, Greater than 96 Consecutive Hours (ICD-10-PCS; principal; 2018-02-20)
PROC: 0BH17EZ Insertion of Endotracheal Airway into Trachea, Via Natural or Artificial Opening (ICD-10-PCS; 2018-02-20)
PROC: 03HY32Z Insertion of Monitoring Device into Upper Artery, Percutaneous Approach (ICD-10-PCS; 2018-02-20)
PROC: 4A133B1 Monitoring of Arterial Pressure, Peripheral, Percutaneous Approach (ICD-10-PCS; 2018-02-20)
PROC: 4A133J1 Monitoring of Arterial Pulse, Peripheral, Percutaneous Approach (ICD-10-PCS; 2018-02-20)
PROC: 05H533Z Insertion of Infusion Device into Right Subclavian Vein, Percutaneous Approach (ICD-10-PCS; 2018-02-20)
PROC: 06HY33Z Insertion of Infusion Device into Lower Vein, Percutaneous Approach (ICD-10-PCS; 2018-02-26)
PROC: 5A1D70Z Performance of Urinary Filtration, Intermittent, Less than 6 Hours Per Day (ICD-10-PCS; 2018-02-26)
PROC: 0DH63UZ Insertion of Feeding Device into Stomach, Percutaneous Approach (ICD-10-PCS; 2018-02-27)
PROC: 3E0G76Z Introduction of Nutritional Substance into Upper GI, Via Natural or Artificial Opening (ICD-10-PCS; 2018-02-27)
PROC: 0B110F4 Bypass Trachea to Cutaneous with Tracheostomy Device, Open Approach (ICD-10-PCS; 2018-02-27 14:10)
PROC: 06PYX3Z Removal of Infusion Device from Lower Vein, External Approach (ICD-10-PCS; 2018-03-02)
PROC: 05HM33Z Insertion of Infusion Device into Right Internal Jugular Vein, Percutaneous Approach (ICD-10-PCS; 2018-03-02)
DX: I13.2 Hypertensive heart and chronic kidney disease with heart failure and with stage 5 chronic kidney disease, or end stage renal disease (principal); I50.33 Acute on chronic diastolic (congestive) heart failure; J15.6 Pneumonia due to other Gram-negative bacteria; A41.1 Sepsis due to other specified staphylococcus; G92 Toxic encephalopathy; J96.01 Acute respiratory failure with hypoxia; N17.0 Acute kidney failure with tubular necrosis; N18.6 End stage renal disease; J44.0 Chronic obstructive pulmonary disease with (acute) lower respiratory infection; B18.1 Chronic viral hepatitis B without delta-agent; E46 Unspecified protein-calorie malnutrition; Z68.1 Body mass index [BMI] 19.9 or less, adult; G93.1 Anoxic brain damage, not elsewhere classified; Z99.11 Dependence on respirator [ventilator] status; J20.9 Acute bronchitis, unspecified; F17.210 Nicotine dependence, cigarettes, uncomplicated; B19.20 Unspecified viral hepatitis C without hepatic coma; B95.61 Methicillin susceptible Staphylococcus aureus infection as the cause of diseases classified elsewhere; D63.1 Anemia in chronic kidney disease; E11.21 Type 2 diabetes mellitus with diabetic nephropathy; E11.22 Type 2 diabetes mellitus with diabetic chronic kidney disease; E11.319 Type 2 diabetes mellitus with unspecified diabetic retinopathy without macular edema; E11.40 Type 2 diabetes mellitus with diabetic neuropathy, unspecified; E11.51 Type 2 diabetes mellitus with diabetic peripheral angiopathy without gangrene; E11.649 Type 2 diabetes mellitus with hypoglycemia without coma; E11.65 Type 2 diabetes mellitus with hyperglycemia; E78.5 Hyperlipidemia, unspecified; E83.39 Other disorders of phosphorus metabolism; E87.5 Hyperkalemia; E87.6 Hypokalemia; F11.11 Opioid abuse, in remission; F14.11 Cocaine abuse, in remission; F32.9 Major depressive disorder, single episode, unspecified; F41.9 Anxiety disorder, unspecified; G40.909 Epilepsy, unspecified, not intractable, without status epilepticus; G89.29 Other chronic pain; K21.9 Gastro-esophageal reflux disease without esophagitis; K58.1 Irritable bowel syndrome with constipation; M10.9 Gout, unspecified; M19.90 Unspecified osteoarthritis, unspecified site; M54.30 Sciatica, unspecified side; N40.0 Benign prostatic hyperplasia without lower urinary tract symptoms; Z51.5 Encounter for palliative care; Z66 Do not resuscitate; Z74.01 Bed confinement status; Z79.01 Long term (current) use of anticoagulants; Z79.4 Long term (current) use of insulin; Z79.899 Other long term (current) drug therapy; Z83.3 Family history of diabetes mellitus; Z86.14 Personal history of Methicillin resistant Staphylococcus aureus infection; Z86.718 Personal history of other venous thrombosis and embolism; Z89.511 Acquired absence of right leg below knee; Z96.653 Presence of artificial knee joint, bilateral; Z99.2 Dependence on renal dialysis; T68.XXXA Hypothermia, initial encounter; Z89.429 Acquired absence of other toe(s), unspecified side; Z87.01 Personal history of pneumonia (recurrent); Z86.19 Personal history of other infectious and parasitic diseases; Z91.81 History of falling
CPT/HCPCS: 31500; 36415; 36558; 36569; 36600; 43246; 51702; 70450; 71045; 71046; 74018; 74176; 76937; 77001; 80048; 80053; 80164; 80202; 80306; 81001; 82140; 82150; 82607; 82728; 82805; 83036; 83540; 83550; 83605; 83690; 83735; 83880; 84100; 84132; 84443; 84484; 85025; 85027; 85610; 85730; 86706; 86780; 86850; 86900; 86901; 86920; 87040; 87070; 87075; 87077; 87086; 87186; 87205; 87340; 90935; 93005; 94002; 94003; 94640; 94644; 94645; 95816; 96361; 96374; 96375; 96376; 99285